=== PATIENT | male | born 1970 | race Caucasian/White ===

== ENCOUNTER 2017-11-02 10:13 | Inpatient (IN) ==
--- NOTE | 2017-11-02 10:40 | Anesthesia Evaluation PreOp ---
Date of Encounter: 11/02/17 Time of Encounter: 10:38 - Past History Planned Operation: multiple hind/midfoot joint fusions right Cardiac History: HTN Pulmonary History: Asthma, NEHEMIAH Dx (uses CPAP) Other Medical History: Renal (mild renal insufficiency), Diabetes Type II, GERD , Other (morbid obesity) Anesthesia History: No Prior Anesthetic Complications, Past Anesthesia (EOMI) Alcohol Use: none Drug use: none Medications and Allergies Cetirizine HCl [24Hour Allergy] 10 mg PO DAILY PRN 01/19/17 [History] Insulin Glargine [Lantus] 45 unit SQ BID 01/19/17 [History] Lisinopril/Hydrochlorothiazide [Zestoretic 20-25 mg Tablet] 2 tab PO DAILY 01/19 [History] Meloxicam [Mobic] 15 mg PO DAILY 01/19/17 [History] Pantoprazole Sodium [Protonix] 40 mg PO DAILY 01/19/17 [History] Tramadol HCl [Ultram] 50 mg PO QID PRN 01/19/17 [History] ARIPiprazole [Abilify] 10 mg PO DAILY 07/27/17 [History] Buspirone HCl [Buspar] 30 mg PO BID 07/27/17 [History] Gabapentin [Neurontin] 400 mg PO TID 07/27/17 [History] Glimepiride [Amaryl] 4 mg PO DAILY 07/27/17 [History] PARoxetine HCl [Paroxetine HCl] 40 mg PO DAILY 07/27/17 [History] 3 Allergy/AdvReac Type Severity Reaction Status Date / Time No Known Allergies Allergy Verified 10/23/17 11:55 - Meds/Allergy Pre-op Review Medications Reviewed: Yes Allergies Reviewed: Yes Beta Blockers on Current Med List: No Anesthesia Results - Labs Laboratory Tests 07/20/17 10/23/17 10/23/17 12:28 12:00 12:00 Hgb 14.8 Hct 45.4 Sodium 136 Potassium 4.4 BUN 31 H Creatinine 1.42 H - Imaging EKG: report reviewed (SINUS RHYTHM LOW QRS VOLTAGE IN PRECORDIAL LEADS POSSIBLE ANTERIOR MYOCARDIAL INFARCTION, OF INDETERMINATE AGE 3-17) Anesthesia Exam Weight: 184kg, BMI54 NPO (# of Hours): 8 - HEENT Pupil (Motor): EOMI Mallampati: III Teeth: Missing, Poor dentition Oral Opening: Greater than 3 - SWIMMING TEACHER LOC: Oriented SWIMMING TEACHER Motor: Normal RUE, Normal LUE, Normal RLE, Normal LLE, Normal Face SWIMMING TEACHER Sensory: Normal: RUE, LUE, RLE, LLE, Face - Cardiac Rhythm: Regular Murmur: None - Pulmonary Breath Sounds: bilateral Clear Respiratory Effort: Symmetrical Anesthesia Assess/Plan ASA Score: 3 Modified Danny Scale for Level of Consciousness: Cooperative, oriented, and tranquil Anesthetic Plan: General Monitoring Plan: Standard Monitors Recovery Plan: PACU (agrees to GA and attempted block)
[2017-11-02] MEDS ORDERED: Ondansetron 4 MG/2 ML VIAL ONE (10:51)
[2017-11-02] MEDS ORDERED: Dexamethasone 4 MG/ML VIAL ONE ×2 (10:51→17:04)
[2017-11-02] MEDS ORDERED: Lidocaine -MPF 2% 2 ML VIAL ONE (10:51)
[2017-11-02] MEDS ORDERED: *HR* Propofol 200 MG/20 ML VIAL IVP ONE ×2 (10:52→12:46)
[2017-11-02] MEDS ORDERED: *HR* Midazolam HCl 2 MG/2 ML VIAL ONE ×2 (10:52→12:19)
[2017-11-02] MEDS ORDERED: *HR* FentaNYL (PF) 100 MCG/2 ML VIAL ONE ×2 (10:52→12:19)
[2017-11-02] MEDS ORDERED: Albuterol 2.5 MG/3 ML NEBULIZER ONE (11:28)
[2017-11-02] MEDS ORDERED: Albuterol 2.5 MG/3 ML NEBULIZER IH ONE (11:31)
[2017-11-02] MEDS ORDERED: Ringers Solution, Lactated 1,000 ML IVC SCH (11:45)
--- NOTE | 2017-11-02 12:08 | History & Physical Report ---
Date of Encounter: 11/02/17 Time of Encounter: 11:55 24 Hour HP Update - Instructions Instructions: If the History and Physical is less than 30 days old and was completed prior to A.M. admission and or procedure and has NOT been updated on calendar day of procedure please complete this update prior to performing procedure. - Update Patient reports changes in Medical Condition: No Changes in examination, assessment, or condition: No Changes in Medication: No Preop tests/diagnostics Reviewed: Yes Surgery Remains Indicated: Yes Consent for Planned Operative Procedure(s) Verified: Yes - Attending Attestation proceed
[2017-11-02] MEDS ORDERED: Lidocaine/EPI 1:100k 1% 20 ML VIAL ONE (12:15)
[2017-11-02] MEDS ORDERED: Bupivacaine/Clonidine Syringe 1 EACH SYRINGE ONE (12:18)
[2017-11-02] MEDS ORDERED: ROPIVACAINE HCL/PF 0.5% 30 ML VIAL ONE (12:18)
[2017-11-02] MEDS ORDERED: *HR* Succinylcholine 200 MG/10 ML VIAL IVP ONE (12:24)
[2017-11-02] MEDS ORDERED: *HR* Rocuronium Bromide 50 MG/5 ML VIAL ONE ×2 (12:24→12:53)
[2017-11-02] MEDS ORDERED: Ondansetron 4 MG/2 ML VIAL IVP ONE (13:17)
[2017-11-02] MEDS ORDERED: *HR* Labetalol 20 MG/4 ML SYRINGE IVP PRN (13:17)
[2017-11-02] MEDS ORDERED: *HR* HYDROmorphone (PF) 1 MG/ML SYRINGE IVP PRN ×2 (13:17→15:00)
--- NOTE | 2017-11-02 13:21 | Anesthesia Procedures ---
Date of Encounter: 11/02/17 Time of Encounter: 12:21 Procedures: Anesthesia - Nerve Block Procedure Date: 11/02/17 Surgical Procedure: right ankle fusion Checklist: Correct Patient Identifier, Correct procedure, History checked Correct side: Right Blood Thinner: No Monitor Applied: Pulse Oximetry Supplemental Oxygen via Nasal Cannula (L/min): 2 Sedation: Versed (mg): 2 Sedation: Fentanyl (mcg): 100 Indication: Post Op Analgesia Block Type: Popliteal, Other (saphenous) Catheter placed: No Sterile Technique: Yes Ultrasound used: Yes Anatomy identified: Yes Visual spread of Local: Yes Neuro Stimulation: No Blood on Needle Aspiration: No Smooth Injection of Local: Yes Pain with Injection of Local: No Prep: Chlorhexadine Needle: 21 x 100 mm Stimuplex Local: Ropivacaine (60ml of 0.5% rop plain. ), Other (10ml from block stick, and 15ml from Ropivacaine for Saphenous, 45 ml of Rop plain used for popiteal block) Volume (cc): 70 Number of Attempts: 1 Complications: None/effective block Vitals: vss, block per request of surgeon
[2017-11-02] MEDS ORDERED: EPHEDrine 50 MG/ML VIAL ONE (13:22)
[2017-11-02] MEDS ORDERED: *HR* HYDROmorphone 2 MG/ML SYRINGE ONE (14:53)
[2017-11-02] MEDS ORDERED: Neostigmine Methylsulfate 3 MG/3 ML SYRINGE ONE (16:56)
[2017-11-02] MEDS ORDERED: *HR* OxyCODONE Immed Rel 5 MG TABLET PO PRN (17:19)
[2017-11-02] MEDS ORDERED: Naloxone 0.4 MG/ML INJ IVP PRN ×3 (17:19→20:15)
--- NOTE | 2017-11-02 18:21 | Anesthesia Evaluation Post Op ---
Date of Encounter: 11/02/17 Time of Encounter: 18:17 - Vital Signs Vital Signs: vss - Lungs Lungs: Clear Ascult./Percussion - Airway Airway: Non-obstructed - Cardiovascular Baseline Rhythm - Mental Status Mental Status: Alert & Oriented, Answers Appropriately - Pain Pain Scale used: Ryan-High (Faces) (0) - Nausea Vomiting Nausea Vomiting: Not Present - Hydration Hydration: Ice chips - Discharge PostOp Status: Transfer Patient to floor
[2017-11-02] MEDS ORDERED: Loratadine 10 MG TABLET PO PRN (19:11)
--- NOTE | 2017-11-02 19:58 | Operative Note ---
Date of procedure: 11/02/17 Pre-op diagnosis: right foot charcot with subtalar joint dislocation Post-op diagnosis: same Procedure: Right ankle removal of hardware Right ankle and subtalar joint arthrodesis calcaneocuboid joint arthrodesis bone graft major Implants: [employer] TTC locking plate with 5.5 and 4.5 locking screws Extremity Medical 4.5 and 6.5 headless cannulated screws Arthrex arthrocell bone graft Complications: none Anesthesia: GETA Local Anesthetics: 1% Lidocaine HCL with Epinephrine 1:200,000 SubQ (cc) Surgeon: Russell Mercer Estimated blood loss (cc): 300 Specimen: none Condition: stable Disposition: PACU Procedure in Detail: Indications: 47-year-old male with right foot Charcot collapse, deformity and dislocation of the subtalar joint and fragmented medial calcaneus and calcaneal cuboid joints. Cystic changes present in bone on CT scan. Patient electing to undergo surgical reconstruction after having the nature of the procedure, risks versus benefits and potential complications and consequences of the procedure explained at length including but not limited to infection, bleeding, swelling, numbness, tingling, nerve damage, wound healing problems, painful scar, delayed or non-healing of bone, heart attack, blood clot, , loss of limb, pneumonia , pulmonary embolism, nonfunctional extremity or loss of functional ability, deformity, break down of adjacent joints, arthritis, failure of hardware, need for removal of implants, need for further surgery. No guarantees were made as to the outcome and he understood that he could have persistent deformity and/or collapse and require future surgery or require amputation of his leg. His A1c was down to 7.5%. All questions were answered and the informed consent was signed. Patient taken from the preoperative holding area and into the operating room and placed on the operating room table in the supine position. The right lower extremity was prepped and draped in the usual sterile fashion and thigh tourniquet was inflated to 300 mmHg. Removal of hardware. Attention was directed to the lateral aspect of the patient's right ankle are #10 blade was used to make an incision over the fibula and blunt dissection was carried out down to the level of the hardware. There was some bony overgrowth on the hardware. The freer and Mercado elevator were used to remove the bony overgrowth exposing the plate and screws from previous ankle ORIF. The screws and ankle plate were removed. Bone graft major. With the screws and plate from the ankle removed a sagittal saw was then used to cut the fibula above the level of the ankle joint and removed the distal aspect of the fibula. The periosteum was removed and cortical surfaces removed. The bone graft harvested was soaked in saline on the back table for later use as bone graft. Right ankle and subtalar joint arthrodesis. The lateral ankle skin incision was lengthened distally using a #15 blade and subcutaneous and deep tissues dissected through sharp and blunt dissection. The peroneal tendons were identified and retracted. Traversing veins were divided and ligated using the Bovie or Vicryl suture and then retracted. In the lateral incision the dislocated remaining calcaneus bone was identified and was dislocated from the talus. There was no approximation of articulating surfaces. The medial aspect of the calcaneal bone was fragmented and not connected to the lateral portion of the calcaneus. Remaining cartilage of the calcaneus was debrided using bone curettes, rotary bur and the ronjeur. The same was done for the consolidated inferior portion of the talus. Attention was then directed proximally towards the ankle joint which was distracted using the intermittent distractor. The cartilage from both the talus and the tibia was removed using a bone curet, osteotome and rotary bur. A drill was used to fenestrate both the tibiotalar and talocalcaneal sites through subchondral bone. Arthrex ArthroSew bone graft was applied in the fusion sites and crevices. The talus was medialized and fixated temporarily to the tibia. A half pin was inserted into the calcaneus and the calcaneus was distracted and attempted to be moved medially under the talus. The medial fragmented bone preventing relocation was removed using a ronjeur. The posterior aspect of the calcaneus was approximated under the talus as much as possible. The guide wire for an intramedullary nail was thrown through the calcaneus and into the talus and tibia. C-arm was utilized to confirm position and alignment of the guidewire and it was felt that due to the remaining bone left of the calcaneus and under the talus, that an intramedullary nail may fracture through the lateral cortices of the talus and not stabilize the calcaneus to the hindfoot and ankle. Therefore, the decision was made to use a lateral tibiotalocalcalcaneal ham[employer] plate with 4.5 and 5.5 locking and non-locking screws and 6.5mm extremity medical screw to stabilize the tibiotalocalcaneal sites. The talus was temporarily fixated to the tibia and talus to the calcaneus while holding the ankle in a neutral position at the ankle joint and the 2nd digit was in alignment with the tibial tuberosity. Bone graft harvested from the fibula was inserted into the subtalar fusion site. Hardware was employed using standard techinque. Calcaneocuboid joint arthrodesis. Attention was then directed to the calcaneocuboid joint which contained fragmented loose bone which was removed from the joint. Remaining cartilage of this joint area was removed with an osteotome. Next an incision was made over the fourth metatarsophalangeal joint exposing the fourth metatarsal head and using standard technique a 4.5 mm extremity medical cannulated beam was thrown through the fourth metatarsal traversing the midfoot and into the calcaneus across the calcaneocuboid joint. A second crossing 4.5 mm cannulated beam was thrown from the cuboid across the calcaneal cuboid fusion zone. No motion was detected with stress of the calcaneocuboid joint. The tourniquet had been dropped during the procedure and adequate hemostasis was present at the conclusion of these procedures. The surgical incision sites were flushed with sterile saline. A 0-Vicryl was used to close deep and subcutaneous tissues and annette were used to reapproximate the skin. Capillary refill time was intact to all digits of the right foot at the conclusion of the procedures. Sterile bandge and posterior splint applied. Patient admitted prior to procedure and will return to the floor for monitoring and pain control.
--- NOTE | 2017-11-02 20:04 | Internal Med History&Physical ---
Date of Encounter: 11/02/17 Time of Encounter: 20:03 Assessment and Plan (1) Charcot foot due to diabetes mellitus Current visit: Yes Status: Acute S/p Right ankle and subtalar joint arthrodesis, calcaneocuboid joint arthrodesis , bone graft major ADA diet Pain management per Dr. Mercer orders. Plan for L foot pending future evaluation. (2) [facility] (current) use of anticoagulants Current visit: Yes Status: Acute Has been on Xarelto for over a year after provoked RUE clot due to picc line. Hgb A1c 7.5%, though may have increased risk of hypercoagulability due to longstanding diabetes. Will continue intermittent pneumatic compression for now. (3) HTN (hypertension) Current visit: Yes Status: Acute Continue Lisinopril+HCTZ Qualifiers: Hypertension type: unspecified Qualified Code(s): I10 - Essential (primary ) hypertension (4) DM2 (diabetes mellitus, type 2) Current visit: Yes Status: Acute Qualifiers: Diabetes mellitus complication detail: with unspecified neuropathy Diabetes mellitus residential insulin use: with petroleum terminal plant operator use Qualified Code(s) : E11.40 - Type 2 diabetes mellitus with diabetic neuropathy, unspecified; Z79.4 - petroleum terminal plant operator (current) use of insulin; Z79.4 - penitentiary (current) use of insulin; Z79.4 - penitentiary (current) use of insulin; Z79.4 - petroleum terminal plant operator (current ) use of insulin (5) NEHEMIAH (obstructive sleep apnea) Current visit: Yes Status: Acute Patient saturating well with O2 Mask Has home CPAP with 18/11 settings. Will use at night. Internal Medicine - H&P: HPI Admitted From: Home Plans for Post Hospital Care: Transfer Senior Living Facility History of present illness: Mr. Bowen is a 47 year old male with PMH DM2, Charcot foot bilaterally, NEHEMIAH, HTN, on xarelto for provoked clot RUE, and January ortho procedure, who presents today for same day surgery with Dr. Mercer for R Charcot foot fusion of ankle and multiple hindfoot/midfoot joint reconfiguration with MAC anesthesia/ popliteal nerve block. Past Med Surg Social Fam HX - Past Medical History Medical history: asthma, diabetes, hypertension, other Psychiatric history: anxiety, depression - Past Surgical History Surgical History: knee replacement, orthopedic, other, other - Social History Smoking Status: Current some day smoker Smokeless Tobacco Status: No Alcohol use: none Drug use: none Internal Medicine - H&P: Meds Cetirizine HCl [24Hour Allergy] 10 mg PO DAILY PRN 01/19/17 [History] Insulin Glargine [Lantus] 45 unit SQ BID 01/19/17 [History] Lisinopril/Hydrochlorothiazide [Zestoretic 20-25 mg Tablet] 2 tab PO DAILY 01/19 [History] Meloxicam [Mobic] 15 mg PO DAILY 01/19/17 [History] Pantoprazole Sodium [Protonix] 40 mg PO DAILY 01/19/17 [History] Tramadol HCl [Ultram] 50 mg PO QID PRN 01/19/17 [History] ARIPiprazole [Abilify] 10 mg PO DAILY 07/27/17 [History] Buspirone HCl [Buspar] 60 mg PO BID 07/27/17 [History] Gabapentin [Neurontin] 400 mg PO TID 07/27/17 [History] Glimepiride [Amaryl] 4 mg PO DAILY 07/27/17 [History] PARoxetine HCl [Paroxetine HCl] 40 mg PO DAILY 07/27/17 [History] Fluocinonide [Fluocinonide] 1 appl TP AD 11/02/17 [History] Lidocaine OINT 1 - 2 gm TP AD 11/02/17 [History] 3 Allergy/AdvReac Type Severity Reaction Status Date / Time No Known Allergies Allergy Verified 11/02/17 10:48 All Systems PM: A 10-system review of systems was performed and is negative for pertinent findings except as documented above in the HPI. - Constitutional Vitals: Temp Pulse Resp BP Pulse Ox 99.1 F 106 20 106/58 96 11/02/17 18:54 11/02/17 18:54 11/02/17 18:54 11/02/17 18:54 11/02/17 18:54 Internal Med - H&P Results - Impressions ITS Impressions Ankle X-Ray 11/02/17 00:00 IMPRESSION: Intraprocedural fluoroscopic spot images as above. See separate procedure report for more information. D/ / Shahzad Conde MD / Shahzad Conde MD Interpreting Provider: Shahzad Conde MD Fluoroscopy 11/02/17 00:00 IMPRESSION: Intraprocedural fluoroscopic spot images as above. See separate procedure report for more information. D/ / Shahzad Conde MD / Shahzad Conde MD Interpreting Provider: Shahzad Conde MD - VTE Documentation of Mechanical Device: Intermittent pneumatic compression device
--- NOTE | 2017-11-02 20:23 | Internal Medicine Consult Note ---
Date of Encounter: 11/02/17 Time of Encounter: 20:18 - Assessment and Plan (1) Charcot foot due to diabetes mellitus Current Visit: Yes Status: Acute Assessment and plan: S/p Right ankle and subtalar joint arthrodesis, calcaneocuboid joint arthrodesis , bone graft major ADA diet Incentive spirometry q6. Pain management per Dr. Mercer orders. USP plan for L foot pending future evaluation. (2) [facility] (current) use of anticoagulants Current Visit: Yes Status: Acute Assessment and plan: Has been on Xarelto for over a year after provoked RUE clot due to picc line. Hgb A1c 7.5%, though may have increased risk of hypercoagulability due to longstanding diabetes. Will continue intermittent pneumatic compression for now. (3) HTN (hypertension) Current Visit: Yes Status: Acute Assessment and plan: Continue Lisinopril+HCTZ Qualifiers: Hypertension type: unspecified Qualified Code(s): I10 - Essential (primary ) hypertension (4) DM2 (diabetes mellitus, type 2) Current Visit: Yes Status: Acute Assessment and plan: ACHS, with SSI. Qualifiers: Diabetes mellitus complication detail: with unspecified neuropathy Diabetes mellitus nursing home insulin use: with termite treater helper use Qualified Code(s) : E11.40 - Type 2 diabetes mellitus with diabetic neuropathy, unspecified; Z79.4 - intermediate project manager (current) use of insulin; Z79.4 - intermediate project manager (current) use of insulin; Z79.4 - intermediate project manager (current) use of insulin; Z79.4 - intermediate project manager (current ) use of insulin (5) NEHEMIAH (obstructive sleep apnea) Current Visit: Yes Status: Acute Assessment and plan: Patient saturating well with O2 Mask Has home CPAP with 29/09 settings. Will use at night. Internal Medicine - CN: HPI - Data of Consult Patient: new to practice Consult date: 11/02/17 Requesting Physician: Russell Mercer DPM - Consult Narrative Reason for consult: S/p Right ankle and subtalar joint arthrodesis, calcaneocuboid joint arthro History of present illness: Mr. Bowen is a 47 year old male with PMH DM2 diagnosed 12 years ago currently on insulin, most recent A1c 7.5%, Charcot foot bilaterally, NEHEMIAH, HTN, on xarelto for provoked clot RUE, and January ortho procedure, who presents today for same day surgery S/p Right ankle and subtalar joint arthrodesis, calcaneocuboid joint arthrodesis, bone graft major performed by Dr. Mercer, in addition to MAC anesthesia/popliteal nerve block. Pt is accompanied by at bedside, no concerns or complaints, pain under control. Mildly elevated heart rate but no chest discomfort or shortness of breath. Past Med Surg Social Fam HX - Past Medical History Medical history: asthma, diabetes, hypertension, other Psychiatric history: anxiety, depression - Past Surgical History Surgical History: knee replacement, orthopedic, other, other - Social History Smoking Status: Current some day smoker Smokeless Tobacco Status: No Alcohol use: none Drug use: none Internal Medicine - CN: Meds Cetirizine HCl [24Hour Allergy] 10 mg PO DAILY PRN 01/19/17 [History] Insulin Glargine [Lantus] 45 unit SQ BID 01/19/17 [History] Lisinopril/Hydrochlorothiazide [Zestoretic 20-25 mg Tablet] 2 tab PO DAILY 01/19 [History] Meloxicam [Mobic] 15 mg PO DAILY 01/19/17 [History] Pantoprazole Sodium [Protonix] 40 mg PO DAILY 01/19/17 [History] Tramadol HCl [Ultram] 50 mg PO QID PRN 01/19/17 [History] ARIPiprazole [Abilify] 10 mg PO DAILY 07/27/17 [History] Buspirone HCl [Buspar] 60 mg PO BID 07/27/17 [History] Gabapentin [Neurontin] 400 mg PO TID 07/27/17 [History] Glimepiride [Amaryl] 4 mg PO DAILY 07/27/17 [History] PARoxetine HCl [Paroxetine HCl] 40 mg PO DAILY 07/27/17 [History] Fluocinonide [Fluocinonide] 1 appl TP AD 11/02/17 [History] Lidocaine OINT 1 - 2 gm TP AD 11/02/17 [History] 3 Allergy/AdvReac Type Severity Reaction Status Date / Time No Known Allergies Allergy Verified 11/02/17 10:48 Internal Medicine - CN: Exam - Constitutional Vitals: Temp Pulse Resp BP Pulse Ox 99.1 F 106 20 106/58 96 11/02/17 18:54 11/02/17 18:54 11/02/17 18:54 11/02/17 18:54 11/02/17 18:54 General appearance IM: Present: A&O X 3, pleasant, no acute distress - Head Head exam: Present: atraumatic - Eye Eye exam: Present: EOMI, normal appearance - Neck Neck exam general surgery: Present: full ROM. Absent: lymphadenopathy - Respiratory Respiratory exam: Present: CTAB. Absent: respiratory distress, tachypnea - Cardiovascular Cardiovascular exam IM: Present: +S1, +S2, tachycardia. Absent: +S3, +S4 - GI/Abdominal GI/Abdominal exam IM: Present: no peritoneal signs - Extremities Exam Additional comments: R foot surgical dressing intact. Internal Medicine - CN: Reslt - Impressions Impressions Ankle X-Ray 11/02/17 00:00 IMPRESSION: Intraprocedural fluoroscopic spot images as above. See separate procedure report for more information. D/ / Shahzad Conde MD / Shahzad Conde MD Interpreting Provider: Shahzad Conde MD Fluoroscopy 11/02/17 00:00 IMPRESSION: Intraprocedural fluoroscopic spot images as above. See separate procedure report for more information. D/ / Shahzad Conde MD / Shahzad Conde MD Interpreting Provider: Shahzad Conde MD Consult Discharge Plan - Plan Referrals: Cassie Martin [employer] [Primary Care Provider] -
[2017-11-02] MEDS ORDERED: Dextrose Gel 15 GM PO PRN ×2 (20:25)
[2017-11-02] MEDS ORDERED: D5% in Water 1,000 ML IVC PRN (20:25)
[2017-11-02] MEDS ORDERED: *HR* Dextrose 50 % in Water (Syg) 50 ML SYRINGE IVP PRN (20:25)
[2017-11-02] MEDS: Insulin LISPRO 300 UNITS/3 ML VIAL SQ SCH ×2 (21:37→22:09)
[2017-11-02] MEDS: FluocinoNIDE 0.05% CRM 15 GM TUBE TP SCH (21:51)
[2017-11-02] MEDS: *HR* OxyCODONE Immed Rel 5 MG TABLET PO PRN (21:54)
[2017-11-02] MEDS: Gabapentin 400 MG CAPSULE PO SCH (21:55)
[2017-11-02] MEDS ORDERED: *HR* Morphine 2 MG/ML SYRINGE IVP PRN (22:04)
[2017-11-02] MEDS ORDERED: *HR* Morphine 2 MG/ML SYRINGE IVP ONE (22:04)
[2017-11-02] MEDS: Insulin DETEMIR 100 UNIT/ML X5UNITS SQ SCH (22:10)
[2017-11-03] MEDS: CeFAZolin Premix DUPLEX 2,000 MG/50 ML BAG IVPB SCH ×3 (00:53→17:13)
[2017-11-03 01:36] LABS: Basophils % 0.1 %; Immature Granulocytes % 0.5 % (0-4); Lymphocytes # 0.5 K/mcL (0.6-4.6); Lymphocytes % 5.6 %; Mean Corpuscular HGB Conc 32.4 g/dL (31.6-35.5); Mean Corpuscular Volume 86.2 fL (83.0-100.0); Mean Platelet Volume 9.7 fL (9.4-12.4); Monocytes # 0.6 K/mcL (0.0-1.3); Monocytes % 5.8 %; Neutrophils # 8.6 K/mcL (1.6-8.9); Platelet Count 248 K/mcL (140-400); Red Blood Count 4.29 M/mcL (4.19-5.50); Red Cell Distribution Width 13.4 % (11.5-14.5)
[2017-11-03 01:53] LABS: Calcium 8.4 mg/dL (8.6-10.3); Potassium 4.9 mEq/L (3.5-5.1)
[2017-11-03] MEDS: *HR* OxyCODONE Immed Rel 5 MG TABLET PO PRN ×2 (05:36→11:31)
[2017-11-03] MEDS: *HR* Enoxaparin 40 MG/0.4 ML SYRINGE SQ SCH (05:36)
[2017-11-03] MEDS: ARIPiprazole 10 MG TABLET PO SCH (07:59)
[2017-11-03] MEDS: *HR* Glimepiride 4 MG TABLET PO SCH (07:59)
[2017-11-03] MEDS: Insulin LISPRO 300 UNITS/3 ML VIAL SQ SCH ×4 (07:59→20:49)
[2017-11-03] MEDS: Gabapentin 400 MG CAPSULE PO SCH ×3 (07:59→20:30)
[2017-11-03] MEDS: Insulin DETEMIR 100 UNIT/ML X5UNITS SQ SCH ×2 (08:01→20:48)
[2017-11-03] MEDS ORDERED: 0.9 % Sodium Chloride 1,000 ML IVC ONE (11:07)
--- NOTE | 2017-11-03 11:10 | Internal Med Progress Note ---
Date of Encounter: 11/03/17 Time of Encounter: 11:10 - Assessment and plan (1) YESENIA (acute kidney injury) Current Visit: Yes Status: Acute Assessment and plan: will bolus a liter. likely pre-renal given low BP. will start maintenance at 100 cc/hr and check labs in am. avoid nephrotoxins. (2) Charcot foot due to diabetes mellitus Current Visit: Yes Status: Acute Assessment and plan: s/p Right ankle and subtalar joint arthrodesis, calcaneocuboid joint arthrodesis , bone graft major. post op management including pain per primary (3) HTN (hypertension) Current Visit: Yes Status: Acute Assessment and plan: hold HCTZ/lisinopril for low BP and YESENIA. Unfortunately he received it already today Qualifiers: Hypertension type: unspecified Qualified Code(s): I10 - Essential (primary ) hypertension (4) DM2 (diabetes mellitus, type 2) Current Visit: Yes Status: Acute Assessment and plan: c/w levemir 45 units BID. c/w SSI. c/w accu-cheks Qualifiers: Diabetes mellitus complication detail: with unspecified neuropathy Diabetes mellitus [facility] insulin use: with termite control representative use Qualified Code(s) : E11.40 - Type 2 diabetes mellitus with diabetic neuropathy, unspecified; Z79.4 - petroleum terminal plant operator (current) use of insulin; Z79.4 - [facility] (current) use of insulin; Z79.4 - petroleum terminal plant operator (current) use of insulin; Z79.4 - petroleum terminal plant operator (current ) use of insulin (5) NEHEMIAH (obstructive sleep apnea) Current Visit: Yes Status: Acute Assessment and plan: cpap (6) DVT prophylaxis Current Visit: Yes Status: Acute Assessment and plan: lovenox - Constitutional Vitals: Temp Pulse Resp BP Pulse Ox 98.5 F 98 20 99/62 96 11/03/17 08:43 11/03/17 08:43 11/03/17 08:43 11/03/17 08:43 11/03/17 08:43 General appearance: Present: A&O X 3, pleasant, no acute distress Exam: GEN: NAD CVS: RRR. S1, S2, No m/r/g RESP: CTAB ABD: Soft, NT, ND, +BS EXT: No edema. 2+ DP. No rashes. right foot dressing with no drainage NEURO: Nonfocal Internal Medicine: Result - Labs CBC & Chem 7: 11/03/17 01:06 11/03/17 01:06 Labs: Short CBC 11/03/17 Range/Units 01:06 WBC 9.7 (4.3-11.1) K/mcL Hgb 12.0 L (12.9-16.9) g/dL Hct 37.0 L (37.5-50.1) % Plt Count 248 (140-400) K/mcL Neutrophils # 8.6 (1.6-8.9) K/mcL BMP 11/03/17 01:06 Sodium 133 L Potassium 4.9 Chloride 100 Carbon Dioxide 26 BUN 28 H Creatinine 2.11 H Glucose 370 H Calcium 8.4 L - Impressions Impressions Ankle X-Ray 11/02/17 00:00 IMPRESSION: Intraprocedural fluoroscopic spot images as above. See separate procedure report for more information. D/ / Shahzad Conde MD / Shahzad Conde MD Interpreting Provider: Shahzad Conde MD Fluoroscopy 11/02/17 00:00 IMPRESSION: Intraprocedural fluoroscopic spot images as above. See separate procedure report for more information. D/ / Shahzad Conde MD / Shahzad Conde MD Interpreting Provider: Shahzad Conde MD - VTE Documentation of Mechanical Device: Intermittent pneumatic compression device Consult Discharge Plan - Plan Referrals: Cassie Martin, CLIENT TECHNOLOGIES ANALYST [Primary Care Provider] -
--- NOTE | 2017-11-03 11:31 | Podiatry Progress Note ---
Date of Encounter: 11/03/17 Time of Encounter: 10:10 - Assessment and Plan (1) Charcot foot due to diabetes mellitus Current Visit: Yes Status: Acute non-weight bearing right foot. pain controlled at this time. no active strikethough and no new strikethrough since reinforcement of the bandage yesterday. medical management per hospitalist. held meloxicam. awaiting ECF placement, given body habitus and need for non-weight bearing he is high risk for falls. Subjective Interval history: s/p right foot charcot reconstruction. denies f/c/n/v/sob/cp. sitting up out of bed in chair. pain appears controlled. Objective - Vital Signs Vital Signs: Vital Signs Temp Pulse Resp BP Pulse Ox 11/03/17 08:43 98.5 F 98 20 99/62 96 11/03/17 05:29 98.8 F 104 16 105/69 98 11/03/17 00:15 98.7 F 108 12 100/52 92 11/02/17 20:30 98.9 F 111 18 97/58 96 11/02/17 18:54 99.1 F 106 20 106/58 96 11/02/17 18:23 98.2 F 105 20 115/70 93 11/02/17 17:58 97.1 F L 105 20 104/57 93 11/02/17 17:48 101 20 110/60 94 11/02/17 17:38 100 16 109/61 97 11/02/17 17:28 98.2 F 91 16 105/53 95 11/02/17 12:24 97 16 96 Intake and Output 11/02/17 11/03/17 11/03/17 23:59 07:59 15:59 Intake Total 50 / 50 240 / 240 Output Total 300 / 300 400 / 400 Balance -300 / -300 -350 / -350 240 / 240 Intake: IV Fluids 50 / 50 Ancef Premix DUPLEX 2,000 mg In 50 / 50 50 ml @ 100 mls/hr IVPB Q8HR [facility] Rx#:[id number] Oral 240 / 240 Output: Estimated Blood Loss 300 / 300 Catheter 400 / 400 Other: Meal Breakfast Percent of Meal Consumed 100% Blood Glucose* 365 227 - Exam Exam: obese male in no acute distress Vasc: CFT < 3sec x 5 digits right foot. right foot toes are warm to touch. Derm: no active strikethrough and no strikethrough on outermost bandage. Musc: can flex and extend digits of the right foot. no calf pain with squeeze. Neuro: sensation intact to light touch. - Lab Result Diagrams: 11/03/17 01:06 11/03/17 01:06 Labs: Abnormal lab results Hgb 12.0 g/dL (12.9-16.9) L 11/03/17 01:06 Hct 37.0 % (37.5-50.1) L 11/03/17 01:06 Lymphocytes # 0.5 K/mcL (0.6-4.6) L 11/03/17 01:06 Sodium 133 mEq/L (136-145) L 11/03/17 01:06 BUN 28 mg/dL (6-20) H 11/03/17 01:06 Creatinine 2.11 mg/dL (0.70-1.30) H 11/03/17 01:06 Est GFR ( Amer) 41 (> 60) L 11/03/17 01:06 Est GFR (Non-Af Amer) 34 (> 60) L 11/03/17 01:06 Glucose 370 mg/dL (70-105) H 11/03/17 01:06 POC Glucose 227 (58-89) H 11/03/17 07:24 Calcium 8.4 mg/dL (8.6-10.3) L 11/03/17 01:06 - VTE Documentation of Mechanical Device: Intermittent pneumatic compression device Consult Discharge Plan - Plan Referrals: Cassie Martin, ENGLISH PROFESSOR [Primary Care Provider] -
[2017-11-03] MEDS: 0.9 % Sodium Chloride 1,000 ML IVC SCH (16:10)
[2017-11-03] MEDS ORDERED: CeFAZolin Premix DUPLEX 2,000 MG/50 ML BAG IVPB SCH (18:00)
[2017-11-03] MEDS: FluocinoNIDE 0.05% CRM 15 GM TUBE TP SCH (20:30)
[2017-11-03] MEDS: traMADol 50 MG TABLET PO PRN (20:49)
[2017-11-04 01:26] LABS: Basophils % 0.3 %; Eosinophils # 0.1 K/mcL (0.0-0.6); Eosinophils % 1.1 %; Hematocrit 27.7 % (37.5-50.1); Immature Granulocytes % 0.1 % (0-4); Lymphocytes # 1.8 K/mcL (0.6-4.6); Lymphocytes % 24.2 %; Mean Corpuscular HGB Conc 32.5 g/dL (31.6-35.5); Mean Corpuscular Hemoglobin 28.3 pg (28.0-33.3); Mean Corpuscular Volume 87.1 fL (83.0-100.0); Mean Platelet Volume 9.5 fL (9.4-12.4); Monocytes # 0.7 K/mcL (0.0-1.3); Monocytes % 9.9 %; Neutrophils # 4.7 K/mcL (1.6-8.9); Platelet Count 174 K/mcL (140-400); Red Blood Count 3.18 M/mcL (4.19-5.50); Red Cell Distribution Width 13.5 % (11.5-14.5); Segmented Neutrophils % 64.4 %
[2017-11-04 01:44] LABS: Calcium 7.7 mg/dL (8.6-10.3); Potassium 4.4 mEq/L (3.5-5.1)
--- NOTE | 2017-11-04 10:13 | Internal Med Progress Note ---
Date of Encounter: 11/04/17 Time of Encounter: 08:00 - Assessment and plan (1) YESENIA (acute kidney injury) Current Visit: Yes Status: Acute Assessment and plan: His kidney numbers have worsened today. I did stop his hydrochlorothiazide and lisinopril yesterday and meloxicam has been stopped. I started him on IV fluids thinking that this could be due to hypotension. His blood pressure pressure continues to be on the lower side. We will continue with IV fluids. I have asked Dr. Matthews to see the patient. We will continue to avoid nephrotoxins. Check a UA. Check labs in the morning. Further recommendations will be per Dr. Matthews from nephrology. (2) Charcot foot due to diabetes mellitus Current Visit: Yes Status: Acute Assessment and plan: s/p Right ankle and subtalar joint arthrodesis, calcaneocuboid joint arthrodesis , bone graft major. post op management including pain per primary (3) HTN (hypertension) Current Visit: Yes Status: Acute Assessment and plan: hold HCTZ/lisinopril again for low BP and YESENIA. Qualifiers: Hypertension type: unspecified Qualified Code(s): I10 - Essential (primary ) hypertension (4) DM2 (diabetes mellitus, type 2) Current Visit: Yes Status: Acute Assessment and plan: Increase Levemir to 60 units from 45 units twice a day. His glucose is uncontrolled. I will check a hemoglobin A1c. c/w SSI. c/w accu-cheks Qualifiers: Diabetes mellitus complication detail: with unspecified neuropathy Diabetes mellitus care home insulin use: with care home use Qualified Code(s) : E11.40 - Type 2 diabetes mellitus with diabetic neuropathy, unspecified; Z79.4 - toolmaker (current) use of insulin; Z79.4 - toolmaker (current) use of insulin; Z79.4 - group home (current) use of insulin; Z79.4 - toolmaker (current ) use of insulin (5) NEHEMIAH (obstructive sleep apnea) Current Visit: Yes Status: Acute Assessment and plan: cpap (6) DVT prophylaxis Current Visit: Yes Status: Acute Assessment and plan: lovenox - Subjective Interval history: No acute events. This pain is well-controlled. His glucose has been in the 200s to 300s. Otherwise he has no complaints. He has been afebrile. - Constitutional Vitals: Temp Pulse Resp BP Pulse Ox 98.3 F 60 18 97/63 97 11/04/17 00:04 11/04/17 00:04 11/04/17 00:04 11/04/17 00:04 11/04/17 00:04 General appearance: Present: pleasant, no acute distress Exam: GEN: NAD CVS: RRR. S1, S2, No m/r/g RESP: CTAB ABD: Soft, NT, ND, +BS EXT: No edema. 2+ DP. No rashes. right foot dressing with no drainage NEURO: Nonfocal Internal Medicine: Result - Labs CBC & Chem 7: 11/04/17 01:03 11/04/17 01:03 Labs: Short CBC 11/04/17 Range/Units 01:03 WBC 7.3 (4.3-11.1) K/mcL Hgb 9.0 L D (12.9-16.9) g/dL Hct 27.7 L (37.5-50.1) % Plt Count 174 (140-400) K/mcL Neutrophils # 4.7 (1.6-8.9) K/mcL BMP 11/04/17 01:03 Sodium 137 Potassium 4.4 Chloride 105 Carbon Dioxide 26 BUN 43 H Creatinine 3.20 H Glucose 253 H Calcium 7.7 L - VTE Documentation of Mechanical Device: Intermittent pneumatic compression device Consult Discharge Plan - Plan Referrals: Cassie Martin, SEAFOOD AND SERVICE MEAT MANAGER [Primary Care Provider] -
[2017-11-04 10:46] LABS: Hemoglobin A1C 8.2 %
[2017-11-04] MEDS: *HR* Enoxaparin 40 MG/0.4 ML SYRINGE SQ SCH (10:52)
--- NOTE | 2017-11-04 10:52 | Podiatry Progress Note ---
Date of Encounter: 11/04/17 Time of Encounter: 09:45 - Assessment and Plan (1) Charcot foot due to diabetes mellitus Current Visit: Yes Status: Acute discussed surgical procedure and findings with patient. non-weight bearing right LE. pain controlled at this time. bandage was changed, there is no active bleeding or ooze from the surgical incision site. placed in sterile bandage and adequately padded posterior splint. medical management per hospitalist. awaiting ECF placement, given body habitus and need for non-weight bearing he is high risk for falls. Subjective Interval history: s/p right foot charcot surgery. denies f/c/n/v/sob/cp/blurry vision. says he did void. says not much pain in the right foot/ankle. Objective - Vital Signs Vital Signs: Vital Signs Temp Pulse Resp BP Pulse Ox 11/04/17 00:04 98.3 F 60 18 97/63 97 11/03/17 20:48 147/65 11/03/17 20:46 98.7 F 103 18 97/57 97 11/03/17 16:12 98.9 F 109 18 90/58 91 11/03/17 12:00 98.2 F 101 18 90/60 93 Intake and Output 11/03/17 11/04/17 11/04/17 23:59 07:59 15:59 Intake Total 640 / 640 100 / 100 Output Total 200 / 200 Balance 440 / 440 100 / 100 Intake: Oral 640 / 640 100 / 100 Output: Catheter 200 / 200 Other: Meal Dinner Percent of Meal Consumed 100% Weight 184.612 kg Blood Glucose* 171 Patient Weight 11/04/17 23:59 Weight 184.612 kg - Exam Exam: obese male in no acute distress right foot/ankle warm to touch. dressing removed. bandages have dry blood on them. there is no bleeding from the surgical incisions. annette and sutures are intact. no fluctuance or evidence of hematoma formation. no erythema. mild edema. can flex and extend digits of the right foot. absent sensation to touch consistent with neuropathy. - Lab Result Diagrams: 11/04/17 01:03 11/04/17 01:03 Labs: Abnormal lab results RBC 3.18 M/mcL (4.19-5.50) L 11/04/17 01:03 Hgb 9.0 g/dL (12.9-16.9) L D 11/04/17 01:03 Hct 27.7 % (37.5-50.1) L 11/04/17 01:03 BUN 43 mg/dL (6-20) H 11/04/17 01:03 Creatinine 3.20 mg/dL (0.70-1.30) H 11/04/17 01:03 Est GFR ( Amer) 25 (> 60) L 11/04/17 01:03 Est GFR (Non-Af Amer) 21 (> 60) L 11/04/17 01:03 Glucose 253 mg/dL (70-105) H 11/04/17 01:03 POC Glucose 112 (58-89) H 11/04/17 08:00 Calculated Osmolality 303 (280-300) H 11/04/17 01:03 Calcium 7.7 mg/dL (8.6-10.3) L 11/04/17 01:03 - VTE Documentation of Mechanical Device: Intermittent pneumatic compression device Consult Discharge Plan - Plan Referrals: Cassie Martin, RIPSAW MATCHER [Primary Care Provider] -
[2017-11-04] MEDS: Insulin LISPRO 300 UNITS/3 ML VIAL SQ SCH ×4 (11:00→20:22)
[2017-11-04] MEDS: Gabapentin 400 MG CAPSULE PO SCH ×3 (11:03→20:21)
[2017-11-04] MEDS: 0.9 % Sodium Chloride 1,000 ML IVC SCH ×2 (11:04→23:53)
[2017-11-04] MEDS: *HR* Glimepiride 4 MG TABLET PO SCH (11:04)
[2017-11-04] MEDS: ARIPiprazole 10 MG TABLET PO SCH (11:04)
[2017-11-04] MEDS: *HR* OxyCODONE Immed Rel 5 MG TABLET PO PRN (11:11)
--- NOTE | 2017-11-04 11:32 | Nephrology Consult Note ---
Date of Encounter: 11/04/17 Time of Encounter: 11:16 Assessment and Plan (1) YESENIA (acute kidney injury) Current Visit: Yes Status: Acute Patient with multifactorial YESENIA on CKD Stage 3. YESENIA secondary to hypotension with ongoing SOHAIL-I and NSAID use. Patient with nonoliguric ATN. Agree with discontinuing Meloxicam and holding lisinopril/hctz. Agree with hydration. Avoid nephrotoxins. Adjust medications for renal function. Work-up is ordered. CKD Stage 3 started July 2017 Likely secondary to chronic NSAID use with long standing hypertension and diabetes contributing. Follow up with me in clinic 6-8 weeks after discharge with bmp 1-2 weeks prior to visit. (2) Charcot foot due to diabetes mellitus Current Visit: Yes Status: Acute Per primary team. S/p surgery. (3) DM2 (diabetes mellitus, type 2) Current Visit: Yes Status: Acute Goal Hgb A1C is less than 7.0. Per primary team and hospitalist. Consider referral to diabetes education. Qualifiers: Diabetes mellitus complication detail: with unspecified neuropathy Diabetes mellitus usp insulin use: with usp use Qualified Code(s) : E11.40 - Type 2 diabetes mellitus with diabetic neuropathy, unspecified; Z79.4 - meterman (current) use of insulin; Z79.4 - meterman (current) use of insulin; Z79.4 - meterman (current) use of insulin; Z79.4 - snf (current ) use of insulin (4) HTN (hypertension) Current Visit: Yes Status: Acute Goal blood pressure less than 130/80. Holding nephrotoxic medications until renal function stabilizes. Qualifiers: Hypertension type: unspecified Qualified Code(s): I10 - Essential (primary ) hypertension (5) Anemia Current Visit: Yes Status: Acute Work-up ordered. Monitor for bleeding. Qualifiers: Qualified Code(s): D64.9 - Anemia, unspecified (6) Morbid obesity with BMI of 50.0-59.9, adult Current Visit: Yes Status: Acute Patient would benefit from weight loss. Outpatient management. History of Present Illness - Reason for Consult Consult date: 11/04/17 Acute Kidney Injury, Chronic Kidney Disease - Chief Complaint YESENIA/CKD - History of Present Illness Mr. Bowen is a 47 yo man with a history of diabetes and hypertension who presented for surgical intervention of his Charcot joint. Patient has a history of nephrolithiasis x2 with the last episode being 10 years ago. He underwent surgery with postoperative course complicated by YESENIA. He was seen initially by hospitalist in consultation who subsequently consulted [facility] for evaluation of his YESENIA. At the time of my evaluation the patient reports his pain is controlled. He denies nausea, vomiting or diarrhea. His appetite is stable. He denies rashes or joint inflammation. He has been taking meloxicam daily for about 10 years. He denies a family history of kidney disease. He denies a knowledge of CKD and does not have a mower sharpener. Past Med Surg Social Fam HX - Past Medical History Medical history: asthma, diabetes, hypertension, other Psychiatric history: anxiety, depression - Past Surgical History Surgical History: knee replacement, orthopedic, other, other - Social History Smoking Status: Current some day smoker Smokeless Tobacco Status: No Alcohol use: none Drug use: none Medications and Allergies Cetirizine HCl [24Hour Allergy] 10 mg PO DAILY PRN 01/19/17 [History] Insulin Glargine [Lantus] 45 unit SQ BID 01/19/17 [History] Lisinopril/Hydrochlorothiazide [Zestoretic 20-25 mg Tablet] 2 tab PO DAILY 01/19 [History] Meloxicam [Mobic] 15 mg PO DAILY 01/19/17 [History] Pantoprazole Sodium [Protonix] 40 mg PO DAILY 01/19/17 [History] Tramadol HCl [Ultram] 50 mg PO QID PRN 01/19/17 [History] ARIPiprazole [Abilify] 10 mg PO DAILY 07/27/17 [History] Buspirone HCl [Buspar] 60 mg PO BID 07/27/17 [History] Gabapentin [Neurontin] 400 mg PO TID 07/27/17 [History] Glimepiride [Amaryl] 4 mg PO DAILY 07/27/17 [History] PARoxetine HCl [Paroxetine HCl] 40 mg PO DAILY 07/27/17 [History] Fluocinonide [Fluocinonide] 1 appl TP AD 11/02/17 [History] Lidocaine OINT 1 - 2 gm TP AD 11/02/17 [History] 3 Allergy/AdvReac Type Severity Reaction Status Date / Time No Known Allergies Allergy Verified 11/02/17 10:48 Review of Systems All Systems: reviewed and no additional remarkable complaints except as stated ( as per hpi.) Exam - Vital Signs Vital signs: Initial Vital Signs Temp Pulse Resp BP Pulse Ox 98.3 F 86 18 138/86 95 11/02/17 10:52 11/02/17 10:52 11/02/17 10:52 11/02/17 10:52 11/02/17 10:52 Intake and Output 11/03/17 11/04/17 11/04/17 23:59 07:59 15:59 Intake Total 640 / 640 1100 / 1100 Output Total 200 / 200 Balance 440 / 440 1100 / 1100 Intake: IV Fluids 1000 / 1000 0.9 % Sodium Chloride 1,000 ML 1000 / 1000 @ 100 mls/hr IVC .Q10H [facility] Rx#: [id number] Oral 640 / 640 100 / 100 Output: Catheter 200 / 200 Other: Meal Dinner Percent of Meal Consumed 100% Weight 184.612 kg Blood Glucose* 171 Patient Weight 11/04/17 23:59 Weight 184.612 kg - General Appearance General appearance: well-developed, well-nourished, obese EENT: ATNC Neck: supple Respiratory: clear Cardiology: no edema (in his left leg. His right leg surgical dressing is in place. ) Gastrointestinal: normoactive bowel sounds, no tenderness, obese Integumentary: warm and dry Neurologic: alert and oriented x3 Musculoskeletal: no cyanosis Psychiatric: mood/affect appropriate Results - Lab Results 11/04/17 01:03 11/04/17 01:03 Most recent lab results Calcium 7.7 mg/dL (8.6-10.3) L 11/04/17 01:03 Consult Discharge Plan - Plan Referrals: Cassie Martin, GLOBAL IMPLEMENTATION MANAGER [Primary Care Provider] -
[2017-11-04 12:14] LABS: Bilirubin,Urine Negative (Negative); Blood,Urine Trace (Negative); Clarity,Urine Clear (Clear); Color,Urine Yellow (Yellow); Glucose,Urine (UA) Normal (Normal); Ketones,Urine Negative (Negative); Leukocyte Esterase,Urine Negative (Negative); Nitrite,Urine Negative (Negative); PH,Urine 5.5 pH Units (5.0-8.0); Protein,Urine Negative (Neg-Trace); Specific Gravity,Urine 1.022 (1.010-1.025); Urobilinogen,Urine Normal (Normal)
[2017-11-04 12:16] LABS: Bacteria,Urine None Seen per hpf (None-Few); Hyaline Casts,Urine None Seen per lpf (None-Few); Squamous Epithelial Cell,Urine None Seen per lpf (None-Few)
[2017-11-04 12:49] LABS: Protein/Creatinine Ratio,Urine 0.14 mg/mg (0.00-0.20)
[2017-11-04] MEDS: Insulin DETEMIR 100 UNIT/ML X5UNITS SQ SCH (20:26)
[2017-11-04] MEDS: FluocinoNIDE 0.05% CRM 15 GM TUBE TP SCH (20:35)
[2017-11-05 01:29] LABS: Basophils % 0.3 %; Eosinophils # 0.2 K/mcL (0.0-0.6); Eosinophils % 2.4 %; Hematocrit 29.1 % (37.5-50.1); Hemoglobin 9.4 g/dL (12.9-16.9); Immature Granulocytes % 1.1 % (0-4); Lymphocytes # 1.3 K/mcL (0.6-4.6); Lymphocytes % 20.2 %; Mean Corpuscular HGB Conc 32.3 g/dL (31.6-35.5); Mean Corpuscular Hemoglobin 28.1 pg (28.0-33.3); Mean Corpuscular Volume 87.1 fL (83.0-100.0); Mean Platelet Volume 9.7 fL (9.4-12.4); Monocytes # 0.6 K/mcL (0.0-1.3); Monocytes % 8.6 %; Neutrophils # 4.5 K/mcL (1.6-8.9); Nucleated Red Blood Cells 0.3 /100 WBC (0); Platelet Count 199 K/mcL (140-400); Red Blood Count 3.34 M/mcL (4.19-5.50); Red Cell Distribution Width 13.1 % (11.5-14.5); Segmented Neutrophils % 67.4 %
[2017-11-05 01:49] LABS: Calcium 8.1 mg/dL (8.6-10.3); Potassium 4.6 mEq/L (3.5-5.1)
[2017-11-05 01:55] LABS: Phosphorous 2.4 mg/dL (2.7-4.5); Uric Acid 11.1 mg/dL (2.3-7.6)
[2017-11-05 02:27] LABS: Folate 10.1 ng/mL (3.0-16.0)
[2017-11-05] MEDS: *HR* Enoxaparin 40 MG/0.4 ML SYRINGE SQ SCH (05:28)
[2017-11-05] MEDS: *HR* Glimepiride 4 MG TABLET PO SCH (08:46)
[2017-11-05] MEDS: Insulin DETEMIR 100 UNIT/ML X5UNITS SQ SCH ×2 (08:46→20:56)
[2017-11-05] MEDS: Gabapentin 400 MG CAPSULE PO SCH ×3 (08:46→20:02)
[2017-11-05] MEDS: *HR* OxyCODONE Immed Rel 5 MG TABLET PO PRN ×3 (08:46→20:56)
[2017-11-05] MEDS: ARIPiprazole 10 MG TABLET PO SCH (08:46)
[2017-11-05] MEDS: Insulin LISPRO 300 UNITS/3 ML VIAL SQ SCH ×4 (08:47→20:58)
--- NOTE | 2017-11-05 09:20 | Internal Med Progress Note ---
Date of Encounter: 11/05/17 Time of Encounter: 07:30 - Assessment and plan (1) Postoperative fever Current Visit: Yes Status: Acute Assessment and plan: Unclear source. His fever was low-grade. He has a little bit of cough. We will check a chest x-ray. Check urinalysis. Check blood cultures. (2) YESENIA (acute kidney injury) Current Visit: Yes Status: Acute Assessment and plan: His kidney numbers improved today. Continue to hold nephrotoxins. Nephrology is on board. Renal ultrasound with nothing acute. Continue with IV fluids. His blood pressure is better. Hydrochlorothiazide lisinopril and meloxicam are all on hold. Chronic kidney disease workup is pending. (3) Charcot foot due to diabetes mellitus Current Visit: Yes Status: Acute Assessment and plan: s/p Right ankle and subtalar joint arthrodesis, calcaneocuboid joint arthrodesis , bone graft major. post op management including pain per primary (4) HTN (hypertension) Current Visit: Yes Status: Acute Assessment and plan: hold HCTZ/lisinopril again due to YESENIA. Qualifiers: Hypertension type: unspecified Qualified Code(s): I10 - Essential (primary ) hypertension (5) DM2 (diabetes mellitus, type 2) Current Visit: Yes Status: Acute Assessment and plan: Continue with Levemir 60 units today. I did increase it yesterday from 45 twice a day. A1c is at 8.2. c/w SSI. c/w accu-cheks Qualifiers: Diabetes mellitus complication detail: with unspecified neuropathy Diabetes mellitus manager intermediate insulin use: with fpc use Qualified Code(s) : E11.40 - Type 2 diabetes mellitus with diabetic neuropathy, unspecified; Z79.4 - shelter (current) use of insulin; Z79.4 - manager intermediate (current) use of insulin; Z79.4 - shelter (current) use of insulin; Z79.4 - manager intermediate (current ) use of insulin (6) NEHEMIAH (obstructive sleep apnea) Current Visit: Yes Status: Acute Assessment and plan: cpap (7) DVT prophylaxis Current Visit: Yes Status: Acute Assessment and plan: lovenox - Subjective Interval history: Patient had a temperature 100.8 overnight. He says he has had chills at night. This pain is well-controlled. Glucose is better controlled although still elevated. His hemoglobin is at 9.4 and was 9.0 yesterday. Hemoglobin was 12.0 on 1223. Seen by nephrology yesterday. Hi - Constitutional Vitals: Temp Pulse Resp BP Pulse Ox 98.9 F 92 16 123/74 95 11/05/17 06:25 11/05/17 06:25 11/05/17 06:25 11/05/17 06:25 11/05/17 08:26 General appearance: Present: pleasant, no acute distress Exam: GEN: NAD CVS: RRR. S1, S2, No m/r/g RESP: CTAB ABD: Soft, NT, ND, +BS EXT: No edema. 2+ DP. No rashes. right foot dressing with no drainage NEURO: Nonfocal Internal Medicine: Result - Labs CBC & Chem 7: 11/05/17 01:15 11/05/17 01:15 Labs: Short CBC 11/05/17 Range/Units 01:15 WBC 6.6 (4.3-11.1) K/mcL Hgb 9.4 L (12.9-16.9) g/dL Hct 29.1 L (37.5-50.1) % Plt Count 199 (140-400) K/mcL Neutrophils # 4.5 (1.6-8.9) K/mcL BMP 11/05/17 01:15 Sodium 135 L Potassium 4.6 Chloride 106 Carbon Dioxide 24 BUN 39 H Creatinine 2.09 H Glucose 277 H Calcium 8.1 L Urine 11/04/17 Range/Units 11:55 Urine Color Yellow (Yellow) Urine Clarity Clear (Clear) Urine pH 5.5 (5.0-8.0) pH Units Ur Specific [place] 1.022 (1.010-1.025) Urine Protein Negative (Neg-Trace) mg/dL Urine Glucose (UA) Normal (Normal) mg/dL - Impressions Impressions Retroperitoneum Ultrasound 11/04/17 12:30 IMPRESSION: 1. Study limited by patient body habitus. The kidneys are grossly normal in sonographic appearance. 2. Normal sonographic appearance of the urinary bladder, with a [id number] postvoid residual. D/ / Gene Naylor MD / Gene Naylor MD Interpreting Provider: Gene Naylor MD Chest X-Ray 11/05/17 07:27 IMPRESSION: No acute cardiopulmonary disease. D/ / 11/05/2017 08:22:51 Kashif Anderson MD / hood Interpreting Provider: Kashif Anderson MD - VTE Documentation of Mechanical Device: Intermittent pneumatic compression device Consult Discharge Plan - Plan Referrals: Cassie Martin, EVENT MARKETING INTERN [Primary Care Provider] -
--- NOTE | 2017-11-05 09:27 | Nephrology Progress Note ---
Date of Encounter: 11/05/17 Time of Encounter: 09:19 - Assessment and Plan (1) YESENIA (acute kidney injury) Current Visit: Yes Status: Acute Patient with YESENIA on CKD that is improving with hydration and holding nephrotoxins. Will discontinue fluids and monitor. May be able to add back antihypertensive medications tomorrow. (2) Charcot foot due to diabetes mellitus Current Visit: Yes Status: Acute Per primary team. (3) DM2 (diabetes mellitus, type 2) Current Visit: Yes Status: Acute Per primary team. Qualifiers: Qualified Code(s): E11.40 - Type 2 diabetes mellitus with diabetic neuropathy , unspecified; Z79.4 - ad terminal makeup operator (current) use of insulin; Z79.4 - FDC ( current) use of insulin; Z79.4 - ad terminal makeup operator (current) use of insulin; Z79.4 - ad terminal makeup operator (current) use of insulin (4) HTN (hypertension) Current Visit: Yes Status: Acute If renal function improves Sunday add back home bp medications. Qualifiers: Qualified Code(s): I10 - Essential (primary) hypertension (5) Anemia Current Visit: Yes Status: Acute Iron deficiency - iv iron ordered. vitamin b12 deficiency - cyanacobalamin ordered. Qualifiers: Qualified Code(s): D64.9 - Anemia, unspecified (6) Morbid obesity with BMI of 50.0-59.9, adult Current Visit: Yes Status: Acute Patient needs weight loss. Subjective Principal diagnosis: YESENIA on CKD Interval history: Patient seen and evaluated. No new complaint. Pain is controlled. Objective - Vital Signs Vital signs: Vital Signs Temp Pulse Resp BP Pulse Ox 11/05/17 08:26 95 11/05/17 06:25 98.9 F 92 16 123/74 95 11/05/17 00:20 100.1 F H 97 18 119/66 93 11/04/17 20:08 100.4 F H 11/04/17 19:37 100.8 F H 93 18 131/71 96 11/04/17 15:26 98.7 F 88 18 113/64 11/04/17 11:39 98.5 F 83 20 105/67 96 Intake and Output 11/04/17 11/05/17 11/05/17 23:59 07:59 15:59 Intake Total 1360 / 1360 Output Total 850 / 850 1625 / 1625 Balance 510 / 510 -1625 / -1625 Intake: IV Fluids 1000 / 1000 0.9 % Sodium Chloride 1,000 ML 1000 / 1000 @ 100 mls/hr IVC .Q10H [facility] Rx#: [id number] Oral 360 / 360 Output: Urine 850 / 850 1625 / 1625 Other: Meal Dinner Percent of Meal Consumed 100% Blood Glucose* 205 178 - General Appearance General appearance: Present: well-developed, well-nourished, obese EENT: Present: ATNC Neck: Present: supple Cardiology: Present: regular rate Integumentary: Present: warm and dry Neurologic: Present: alert and oriented x3 Psychiatric: Present: mood/affect appropriate - Lab 11/05/17 01:15 11/05/17 01:15 Most recent lab results Calcium 8.1 mg/dL (8.6-10.3) L 11/05/17 01:15 Phosphorus 2.4 mg/dL (2.7-4.5) L 11/05/17 01:15 Urine Creatinine 159 mg/dL 11/04/17 11:55 Urine Total Protein 22 mg/dL 11/04/17 11:55 - VTE Documentation of Mechanical Device: Intermittent pneumatic compression device Consult Discharge Plan - Plan Referrals: Cassie Martin BORDEREAU CLERK [Primary Care Provider] -
[2017-11-05] MEDS: Iron Sucrose Complex 200 MG in 0.9 % Sodium Chloride 100 ML IVPB SCH (12:40)
[2017-11-05] MEDS: Cyanocobalamin (B-12) 1,000 MCG TABLET PO SCH (13:21)
[2017-11-05] MEDS: FluocinoNIDE 0.05% CRM 15 GM TUBE TP SCH (20:03)
[2017-11-06 05:33] LABS: Basophils % 0.4 %; Eosinophils # 0.2 K/mcL (0.0-0.6); Eosinophils % 3.3 %; Hematocrit 27.9 % (37.5-50.1); Hemoglobin 8.8 g/dL (12.9-16.9); Immature Granulocytes % 0.4 % (0-4); Lymphocytes # 1.5 K/mcL (0.6-4.6); Mean Corpuscular HGB Conc 31.5 g/dL (31.6-35.5); Mean Corpuscular Hemoglobin 27.7 pg (28.0-33.3); Mean Corpuscular Volume 87.7 fL (83.0-100.0); Mean Platelet Volume 9.9 fL (9.4-12.4); Monocytes # 0.5 K/mcL (0.0-1.3); Monocytes % 8.8 %; Neutrophils # 3.4 K/mcL (1.6-8.9); Platelet Count 199 K/mcL (140-400); Red Blood Count 3.18 M/mcL (4.19-5.50); Red Cell Distribution Width 12.9 % (11.5-14.5); Segmented Neutrophils % 60.1 %
[2017-11-06 05:46] LABS: BUN/Creatinine Ratio 19 (6-26); Blood Urea Nitrogen 28 mg/dL (6-20); Calcium 8.4 mg/dL (8.6-10.3); Carbon Dioxide 29 mEq/L (23-29); Chloride 107 mEq/L (98-107); Glucose 165 mg/dL (70-105); Osmolality,Calculated 297 (280-300); Potassium 4.3 mEq/L (3.5-5.1); Sodium 139 mEq/L (136-145); eGFR For African Americans > 60 (> 60); eGFR For Non-African Americans 52 (> 60)
[2017-11-06] MEDS: *HR* Enoxaparin 40 MG/0.4 ML SYRINGE SQ SCH (06:44)
[2017-11-06] MEDS: *HR* OxyCODONE Immed Rel 5 MG TABLET PO PRN ×2 (06:44→16:49)
[2017-11-06] MEDS: Insulin LISPRO 300 UNITS/3 ML VIAL SQ SCH ×4 (07:25→20:32)
--- NOTE | 2017-11-06 07:37 | Internal Med Progress Note ---
Date of Encounter: 11/06/17 Time of Encounter: 07:35 - Assessment and plan (1) Postoperative fever Current Visit: Yes Status: Acute Assessment and plan: Unclear source. He is afebrile now. I am not going to start any antibiotics as I do not have a source. We will continue to monitor. (2) YESENIA (acute kidney injury) Current Visit: Yes Status: Acute Assessment and plan: His kidney numbers continue to improve. ok to resume home meds. Nephrology is on board. Renal ultrasound with nothing acute. He is off IV fluids. He is encouraged to continue with oral intake. Hydrochlorothiazide and lisinopril and meloxicam were held. I am not opposed to him being discharged by the orthopedics group at this year he can be discharged. If he is discharged he should have a BMP checked sometime over the next couple days [facility] the [facility] facility[facility]habilitation facility. His lisinopril hydrochlorothiazide can be resumed. (3) Charcot foot due to diabetes mellitus Current Visit: Yes Status: Acute Assessment and plan: s/p Right ankle and subtalar joint arthrodesis, calcaneocuboid joint arthrodesis , bone graft major. post op management including pain per primary (4) HTN (hypertension) Current Visit: Yes Status: Acute Assessment and plan: resume HCTZ/lisinopril if blood pressure tolerates. Qualifiers: Hypertension type: unspecified Qualified Code(s): I10 - Essential (primary ) hypertension (5) DM2 (diabetes mellitus, type 2) Current Visit: Yes Status: Acute Assessment and plan: Glucose 137 morning. Continue with Levemir 60 units twice a day. I recommend continuing that at discharge. I did increase it 11/04 from 45 twice a day. A1c is at 8.2. c/w SSI. c/w accu-cheks Qualifiers: Diabetes mellitus complication detail: without coma Diabetes mellitus shelter insulin use: with shelter use Qualified Code(s): E11.00 - Type 2 diabetes mellitus with hyperosmolarity without nonketotic hyperglycemic- hyperosmolar coma (NKHHC); Z79.4 - nursing home (current) use of insulin; Z79.4 - joint terminal attack controller (current) use of insulin; Z79.4 - joint terminal attack controller (current) use of insulin; Z79.4 - nursing home (current) use of insulin (6) NEHEMIAH (obstructive sleep apnea) Current Visit: Yes Status: Acute Assessment and plan: cpap (7) DVT prophylaxis Current Visit: Yes Status: Acute Assessment and plan: lovenox - Subjective Interval history: Patient was seen and examined. He has been afebrile the last 24 hours. His workup with a low-grade temperature that he had the day before has been negative. He says he has no cough anymore. Pain is well controlled. He is up to a chair this morning. - Constitutional Vitals: Temp Pulse Resp BP Pulse Ox 97.7 F 72 20 121/72 95 11/06/17 06:30 11/06/17 06:30 11/06/17 06:30 11/06/17 06:30 11/06/17 06:30 General appearance: Present: pleasant, no acute distress Exam: GEN: NAD CVS: RRR. S1, S2, No m/r/g RESP: CTAB ABD: Soft, NT, ND, +BS EXT: No edema. 2+ DP. No rashes. right foot dressing with no drainage NEURO: Nonfocal Internal Medicine: Result - Labs CBC & Chem 7: 11/06/17 05:00 11/06/17 05:00 Labs: Short CBC 11/06/17 Range/Units 05:00 WBC 5.7 (4.3-11.1) K/mcL Hgb 8.8 L (12.9-16.9) g/dL Hct 27.9 L (37.5-50.1) % Plt Count 199 (140-400) K/mcL Neutrophils # 3.4 (1.6-8.9) K/mcL BMP 11/06/17 05:00 Sodium 139 Potassium 4.3 Chloride 107 Carbon Dioxide 29 BUN 28 H Creatinine 1.44 H Glucose 165 H Calcium 8.4 L - Impressions Impressions Chest X-Ray 11/05/17 07:27 IMPRESSION: No acute cardiopulmonary disease. D/ / 11/05/2017 08:22:51 Kashif Anderson MD / hood Interpreting Provider: Kashif Anderson MD - VTE Documentation of Mechanical Device: Intermittent pneumatic compression device Consult Discharge Plan - Plan Referrals: Cassie Martin, FOOD AND DRUG RESEARCH SCIENTIST [Primary Care Provider] -
[2017-11-06] MEDS: *HR* Glimepiride 4 MG TABLET PO SCH (08:04)
[2017-11-06] MEDS: ARIPiprazole 10 MG TABLET PO SCH (08:04)
[2017-11-06] MEDS: Cyanocobalamin (B-12) 1,000 MCG TABLET PO SCH (08:05)
[2017-11-06] MEDS: Gabapentin 400 MG CAPSULE PO SCH ×3 (08:05→20:32)
[2017-11-06] MEDS: Insulin DETEMIR 100 UNIT/ML X5UNITS SQ SCH ×2 (09:44→20:32)
[2017-11-06] MEDS: traMADol 50 MG TABLET PO PRN ×2 (09:44→20:32)
[2017-11-06] MEDS: Iron Sucrose Complex 200 MG in 0.9 % Sodium Chloride 100 ML IVPB SCH (09:44)
--- NOTE | 2017-11-06 11:21 | Nephrology Progress Note ---
Date of Encounter: 11/06/17 Time of Encounter: 11:19 - Assessment and Plan (1) YESENIA (acute kidney injury) Current Visit: Yes Status: Acute Kidney function greatly improved today-Scr 1.44 from 2.09, GFR 52 from 34 OK to resume home b/p meds if needed Nephrology signing off case-BMP in one week from discharge and f/u in office in 4-6 weeks (2) Anemia Current Visit: Yes Status: Acute Hgb 8.8 Venofer given Qualifiers: Anemia type: unspecified type Qualified Code(s): D64.9 - Anemia, unspecified (3) Charcot foot due to diabetes mellitus Current Visit: Yes Status: Acute per primary team Subjective Principal diagnosis: YESENIA on CKD Interval history: Patient seen and examined; sleeping with bipap on Objective - Vital Signs Vital signs: Vital Signs Temp Pulse Resp BP Pulse Ox 11/06/17 10:57 99.4 F 81 20 113/72 97 11/06/17 08:15 95 11/06/17 06:30 97.7 F 72 20 121/72 95 11/05/17 23:34 98.3 F 82 18 131/87 93 11/05/17 20:00 96 11/05/17 19:49 99.3 F 85 8 152/81 96 11/05/17 15:20 98.5 F 84 16 129/63 98 Intake and Output 11/05/17 11/06/17 11/06/17 23:59 07:59 15:59 Intake Total 410 / 410 360 / 360 Output Total 1000 / 1000 1150 / 1150 Balance -590 / -590 -1150 / -1150 360 / 360 Intake: IV Fluids 110 / 110 Venofer 200 MG In 0.9 % Sodium 110 / 110 Chloride 100 ML @ 200 mls/hr IVPB DAILY [facility] Rx#:[id number] Oral 300 / 300 360 / 360 Output: Urine 1000 / 1000 1150 / 1150 Other: Meal Breakfast Percent of Meal Consumed 100% Blood Glucose* 195 137 194 - General Appearance General appearance: Present: obese EENT: Present: ATNC Neck: Present: supple Cardiology: Present: regular rate, regular rhythm Gastrointestinal: Present: no guarding - Lab 11/06/17 05:00 11/06/17 05:00 Most recent lab results Calcium 8.4 mg/dL (8.6-10.3) L 11/06/17 05:00 Phosphorus 2.4 mg/dL (2.7-4.5) L 11/05/17 01:15 Urine Creatinine 159 mg/dL 11/04/17 11:55 Urine Total Protein 22 mg/dL 11/04/17 11:55 - VTE Documentation of Mechanical Device: Intermittent pneumatic compression device Consult Discharge Plan - Plan Referrals: Cassie Martin ACCOUNTS COLLECTOR [Primary Care Provider] -
--- NOTE | 2017-11-06 14:41 | Podiatry Progress Note ---
Date of Encounter: 11/06/17 Time of Encounter: 12:15 - Assessment and Plan (1) Charcot foot due to diabetes mellitus Current Visit: Yes Status: Acute c/w non-weight bearing right LE. pain controlled at this time. leave bandage clean, dry, and intact. no dressing changes necessary at this time. medical management per hospitalist. awaiting ECF placement, given body habitus and need for non-weight bearing he is high risk for falls. he will follow up with me 10- 14 days after discharge. Subjective Principal diagnosis: YESENIA on CKD Interval history: s/p right foot charcot surgery. denies f/c/n/v/sob/cp/blurry vision. pain in the right foot/ankle controlled. Objective - Vital Signs Vital Signs: Vital Signs Temp Pulse Resp BP Pulse Ox 11/06/17 14:17 98.4 F 82 20 153/69 96 11/06/17 10:57 99.4 F 81 20 113/72 97 11/06/17 08:15 95 11/06/17 06:30 97.7 F 72 20 121/72 95 11/05/17 23:34 98.3 F 82 18 131/87 93 11/05/17 20:00 96 11/05/17 19:49 99.3 F 85 8 152/81 96 11/05/17 15:20 98.5 F 84 16 129/63 98 Intake and Output 11/05/17 11/06/17 11/06/17 23:59 07:59 15:59 Intake Total 410 / 410 600 / 600 Output Total 1000 / 1000 1150 / 1150 550 / 550 Balance -590 / -590 -1150 / -1150 50 / 50 Intake: IV Fluids 110 / 110 Venofer 200 MG In 0.9 % Sodium 110 / 110 Chloride 100 ML @ 200 mls/hr IVPB DAILY [facility] Rx#:[id number] Oral 300 / 300 600 / 600 Output: Urine 1000 / 1000 1150 / 1150 550 / 550 Other: Meal Lunch Percent of Meal Consumed 100% Blood Glucose* 195 137 194 - Exam Exam: no strikethrough. CFT of digits warm to touch. can flex and extend digits of the right foot. no calf pain with squeeze. absent sensation consistent with neuropathy. - Lab Result Diagrams: 11/06/17 05:00 11/06/17 05:00 Labs: Abnormal lab results RBC 3.18 M/mcL (4.19-5.50) L 11/06/17 05:00 Hgb 8.8 g/dL (12.9-16.9) L 11/06/17 05:00 Hct 27.9 % (37.5-50.1) L 11/06/17 05:00 MCH 27.7 pg (28.0-33.3) L 11/06/17 05:00 MCHC 31.5 g/dL (31.6-35.5) L 11/06/17 05:00 Nucleated RBCs/100 WBC 0.3 /100 WBC (0) H 11/05/17 01:15 BUN 28 mg/dL (6-20) H 11/06/17 05:00 Creatinine 1.44 mg/dL (0.70-1.30) H 11/06/17 05:00 Est GFR (Non-Af Amer) 52 (> 60) L 11/06/17 05:00 Glucose 165 mg/dL (70-105) H 11/06/17 05:00 POC Glucose 194 (58-89) H 11/06/17 11:10 Hemoglobin A1c 8.2 % (-5.6) H 11/04/17 01:03 Uric Acid 11.1 mg/dL (2.3-7.6) H 11/05/17 01:15 Calcium 8.4 mg/dL (8.6-10.3) L 11/06/17 05:00 Phosphorus 2.4 mg/dL (2.7-4.5) L 11/05/17 01:15 Iron 16 mcg/dL (65-175) L 11/05/17 01:15 % Saturation 6 % (20-55) L 11/05/17 01:15 Transferrin 201 mg/dL (203-362) L 11/05/17 01:15 Vitamin B12 155 pg/mL (250-1100) L 11/05/17 01:15 25-OH Vitamin D Total 16 ng/mL (30-80) L 11/05/17 01:15 Urine Blood Trace (Negative) H 11/04/17 11:55 Urine Microscopic RBC 5-15 per hpf (0-3) H 11/04/17 11:55 Urine Microscopic WBC 3-5 per hpf (0-3) H 11/04/17 11:55 - VTE Documentation of Mechanical Device: Intermittent pneumatic compression device Consult Discharge Plan - Plan Referrals: Cassie Martin FRAME FEEDER [Primary Care Provider] -
[2017-11-06] MEDS: FluocinoNIDE 0.05% CRM 15 GM TUBE TP SCH (20:42)
[2017-11-07] MEDS: *HR* OxyCODONE Immed Rel 5 MG TABLET PO PRN (03:14)
[2017-11-07] MEDS: *HR* Enoxaparin 40 MG/0.4 ML SYRINGE SQ SCH (05:08)
[2017-11-07 06:05] LABS: Basophils % 0.4 %; Eosinophils # 0.2 K/mcL (0.0-0.6); Eosinophils % 4.4 %; Hematocrit 27.9 % (37.5-50.1); Hemoglobin 9.1 g/dL (12.9-16.9); Immature Granulocytes % 0.4 % (0-4); Lymphocytes # 1.4 K/mcL (0.6-4.6); Lymphocytes % 25.6 %; Mean Corpuscular HGB Conc 32.6 g/dL (31.6-35.5); Mean Corpuscular Hemoglobin 27.8 pg (28.0-33.3); Mean Corpuscular Volume 85.3 fL (83.0-100.0); Mean Platelet Volume 9.6 fL (9.4-12.4); Monocytes # 0.5 K/mcL (0.0-1.3); Monocytes % 8.7 %; Neutrophils # 3.3 K/mcL (1.6-8.9); Platelet Count 241 K/mcL (140-400); Red Blood Count 3.27 M/mcL (4.19-5.50); Red Cell Distribution Width 12.7 % (11.5-14.5); Segmented Neutrophils % 60.5 %
[2017-11-07 06:22] LABS: BUN/Creatinine Ratio 20 (6-26); Blood Urea Nitrogen 25 mg/dL (6-20); Calcium 8.8 mg/dL (8.6-10.3); Carbon Dioxide 30 mEq/L (23-29); Chloride 105 mEq/L (98-107); Glucose 120 mg/dL (70-105); Osmolality,Calculated 292 (280-300); Potassium 4.3 mEq/L (3.5-5.1); Sodium 138 mEq/L (136-145); eGFR For African Americans > 60 (> 60); eGFR For Non-African Americans 60 (> 60)
[2017-11-07] MEDS: *HR* Glimepiride 4 MG TABLET PO SCH (07:52)
[2017-11-07] MEDS: Gabapentin 400 MG CAPSULE PO SCH (07:52)
[2017-11-07] MEDS: Cyanocobalamin (B-12) 1,000 MCG TABLET PO SCH (07:52)
[2017-11-07] MEDS: ARIPiprazole 10 MG TABLET PO SCH (07:52)
[2017-11-07] MEDS: Insulin LISPRO 300 UNITS/3 ML VIAL SQ SCH ×2 (07:53→11:54)
--- NOTE | 2017-11-07 07:59 | Physician Discharge Referral ---
ExtendedCare Referral Info Transfer To: [facility] Provider in Charge: Russell Mercer Provider in Charge after Transfer: PCP, Other - Diagnosis (1) Charcot foot due to diabetes mellitus Priority: Primary Status: Acute Prognosis: Fair Aware of Diagnosis: Patient Aware of Prognosis: Patient - Transfer Medications Home Medications: Cetirizine HCl [24Hour Allergy] 10 mg PO DAILY PRN 01/19/17 [History] Insulin Glargine [Lantus] 45 unit SQ BID 01/19/17 [History] Lisinopril/Hydrochlorothiazide [Zestoretic 20-25 mg Tablet] 2 tab PO DAILY 01/19 [History] Meloxicam [Mobic] 15 mg PO DAILY 01/19/17 [History] Pantoprazole Sodium [Protonix] 40 mg PO DAILY 01/19/17 [History] Tramadol HCl [Ultram] 50 mg PO QID PRN 01/19/17 [History] ARIPiprazole [Abilify] 10 mg PO DAILY 07/27/17 [History] Buspirone HCl [Buspar] 60 mg PO BID 07/27/17 [History] Gabapentin [Neurontin] 400 mg PO TID 07/27/17 [History] Glimepiride [Amaryl] 4 mg PO DAILY 07/27/17 [History] PARoxetine HCl [Paroxetine HCl] 40 mg PO DAILY 07/27/17 [History] Fluocinonide [Fluocinonide] 1 appl TP AD 11/02/17 [History] Lidocaine OINT 1 - 2 gm TP AD 11/02/17 [History] Allergies/Adverse Reactions: 3 Allergy/AdvReac Type Severity Reaction Status Date / Time No Known Allergies Allergy Verified 11/02/17 10:48 - Respiratory Orders Other (CPAP) Smoking Cessation: Smoking cessation has been advised. For more information, call the [place] Tobacco Quit Line at 5-841-LOST-NOW. - Mobility Orders Other (non-weight bearing right lower extremity) - Rehabiliation Orders Other: non-weight bearing right lower extremity - Diet Orders No Concentrated Sweets CERTIFICATION: I certify that the transfer of the above named patient to an Extended Care Facility is necessary for the continuing treatment of the diagnosis listed. The above information is true and accurate reflection of patient's current condition. Confidential - Redisclosure prohibited without a patient's written consent.
[2017-11-07] MEDS ORDERED: Lisinopril-HCTZ 20-12.5mg TABLET PO SCH (09:00)
[2017-11-07] MEDS: Insulin DETEMIR 100 UNIT/ML X5UNITS SQ SCH (09:31)
[2017-11-07] MEDS: Iron Sucrose Complex 200 MG in 0.9 % Sodium Chloride 100 ML IVPB SCH (09:33)
[2017-11-07 10:41] VITALS: BP 151/84
--- NOTE | 2017-11-07 12:11 | Discharge Summary ---
Date of Encounter: 11/07/17 Time of Encounter: 12:00 - Discharge Diagnosis (1) Charcot foot due to diabetes mellitus Priority: Primary Status: Acute - Discharge Medications Home Medications: Cetirizine HCl [24Hour Allergy] 10 mg PO DAILY PRN 01/19/17 [History] Insulin Glargine [Lantus] 45 unit SQ BID 01/19/17 [History] Pantoprazole Sodium [Protonix] 40 mg PO DAILY 01/19/17 [History] Tramadol HCl [Ultram] 50 mg PO QID PRN 01/19/17 [History] ARIPiprazole [Abilify] 10 mg PO DAILY 07/27/17 [History] Buspirone HCl [Buspar] 60 mg PO BID 07/27/17 [History] Gabapentin [Neurontin] 400 mg PO TID 07/27/17 [History] Glimepiride [Amaryl] 4 mg PO DAILY 07/27/17 [History] PARoxetine HCl [Paroxetine HCl] 40 mg PO DAILY 07/27/17 [History] Fluocinonide 1 appl TP AD 11/02/17 [History] Lidocaine OINT 1 - 2 gm TP AD 11/02/17 [History] Allopurinol [Zyloprim 100 MG] 100 mg PO DAILY tablet 11/07/17 [Rx] Cyanocobalamin (B-12) [Vitamin B12] 1,000 mcg PO DAILY tablet 11/07/17 [Rx] Enoxaparin [Lovenox] 40 mg SQ 0600 syringe 11/07/17 [Rx] Ergocalciferol (VITAMIN D2) [Drisdol (50,000 Unit)] 50,000 unit PO QWEEK capsule 11/07/17 [Rx] Lisinopril [Zestril] 5 mg PO DAILY tablet 11/07/17 [Rx] Loratadine [Claritin] 10 mg PO DAILY PRN tablet 11/07/17 [Rx] Allergies/Adverse Reactions: 3 Allergy/AdvReac Type Severity Reaction Status Date / Time No Known Allergies Allergy Verified 11/02/17 10:48 Procedures and tests throughout hospitalization: right charcot foot surgery Labs on day of discharge: Labs from last 24 hours 11/07/17 11/07/17 11/06/17 05:47 05:47 20:25 WBC 5.4 RBC 3.27 L Hgb 9.1 L Hct 27.9 L MCV 85.3 MCH 27.8 L MCHC 32.6 RDW 12.7 Plt Count 241 MPV 9.6 Immature Gran % 0.4 Seg Neutrophils % 60.5 Lymphocytes % 25.6 Monocytes % 8.7 Eosinophils % 4.4 Basophils % 0.4 Neutrophils # 3.3 Lymphocytes # 1.4 Monocytes # 0.5 Eosinophils # 0.2 Basophils # 0.0 Sodium 138 Potassium 4.3 Chloride 105 Carbon Dioxide 30 H BUN 25 H Creatinine 1.28 Est GFR ( Amer) > 60 Est GFR (Non-Af Amer) 60 BUN/Creatinine Ratio 20 Glucose 120 H POC Glucose 169 H Calculated Osmolality 292 Calcium 8.8 11/06/17 16:36 WBC RBC Hgb Hct MCV MCH MCHC RDW Plt Count MPV Immature Gran % Seg Neutrophils % Lymphocytes % Monocytes % Eosinophils % Basophils % Neutrophils # Lymphocytes # Monocytes # Eosinophils # Basophils # Sodium Potassium Chloride Carbon Dioxide BUN Creatinine Est GFR ( Amer) Est GFR (Non-Af Amer) BUN/Creatinine Ratio Glucose POC Glucose 170 H Calculated Osmolality Calcium Preliminary micro results at discharge 11/05/17 08:17 Blood Culture - Preliminary Peripheral Venipuncture No growth. 11/05/17 08:27 Blood Culture - Preliminary Peripheral Venipuncture No growth. - Impressions ITS Impressions Ankle X-Ray 11/02/17 00:00 IMPRESSION: Intraprocedural fluoroscopic spot images as above. See separate procedure report for more information. D/ / Shahzad Conde MD / Shahzad Conde MD Interpreting Provider: Shahzad Conde MD Fluoroscopy 11/02/17 00:00 IMPRESSION: Intraprocedural fluoroscopic spot images as above. See separate procedure report for more information. D/ / Shahzad Conde MD / Shahzad Conde MD Interpreting Provider: Shahzad Conde MD Retroperitoneum Ultrasound 11/04/17 12:30 IMPRESSION: 1. Study limited by patient body habitus. The kidneys are grossly normal in sonographic appearance. 2. Normal sonographic appearance of the urinary bladder, with a [id number] postvoid residual. D/ / Gene Naylor MD / Gene Naylor MD Interpreting Provider: Gene Naylor MD Chest X-Ray 11/05/17 07:27 IMPRESSION: No acute cardiopulmonary disease. D/ / 11/05/2017 08:22:51 Kashif Anderson MD / hood Interpreting Provider: Kashif Anderson MD Date of admission: 11/02/17 20:15 Primary care physician: Cassie Martin CNP Consults: 11/02/17 17:22 Consult to Talent Development Director [CONS] Routine Reason for SW Consult: ECF placement s/p reconstructive surgery 11/02/17 20:16 Consult to Occupational Therapy [CONS] Routine Comment: Evaluate, develop and implement POC Reason for Consult: s/p 11/02 Right ankle and subtalar joint arthrodesis calcaneocuboid joint arthrodesis bone graft major Consult to Physical Therapy [CONS] Routine Comment: Evaluate, develop and implement POC Reason for Consult: s/p Right ankle and subtalar joint arthrodesis calcaneocuboid joint arthrodesis bone graft major 11/04/17 10:12 Consult to Nephrology [CONS] Routine Consulting Provider: Kidney Chery/ALEX/BREE/MARIA GUADALUPE Reason for Consult: ARF Call Completed: Yes Discharging clinician: Russell Mercer Anticipated date of discharge: 11/07/17 - Patient Status Disposition: Transfer SNF Condition: Good - Discharge Instructions Follow Up With: Cassie Martin CNP [Primary Care Provider] - - Diet and Activity Activity: other (non-weight bearing right lower extremity) Diet: diabetic diet - Hospital Course Hospital course: Mr. Bowen is a 47 year old diabetic male s/p right foot charcot surgery. The hospitalist and spring coiling machine setter were consulted. His renal function returned to baseline at the time of discharge. It was recommended he continue lisinopril 5mg daily for renal protection instead of his previous dose home medication. He was also started on allopurinol daily which he will continue upon discharge. He will also be on vitamin D3 50,000 iu/weekly for 3 months. He is to remain non- weight bearing to the right lower extremity. No bandage changes required at nursing facility. Check BMP in 1 week. Follow up in 1 week with me and nephrology in 1 month. - Time Spent with Patient Total time spent providing and/or coordinating discharge services: - VTE Documentation of Mechanical Device: Intermittent pneumatic compression device
--- NOTE | 2017-11-07 12:13 | Internal Med Progress Note ---
Date of Encounter: 11/07/17 Time of Encounter: 07:40 - Assessment and plan (1) Postoperative fever Current Visit: Yes Status: Acute Assessment and plan: Unclear source. He is afebrile for 2 days now. I am not going to start any antibiotics as I do not have a source. We will continue to monitor. (2) YESENIA (acute kidney injury) Current Visit: Yes Status: Acute Assessment and plan: Results. Encourage by mouth intake. His home medications have been restarted. (3) Charcot foot due to diabetes mellitus Current Visit: Yes Status: Acute Assessment and plan: s/p Right ankle and subtalar joint arthrodesis, calcaneocuboid joint arthrodesis , bone graft major. post op management including pain per primary (4) HTN (hypertension) Current Visit: Yes Status: Acute Assessment and plan: resume HCTZ/lisinopril Qualifiers: Qualified Code(s): I10 - Essential (primary) hypertension (5) DM2 (diabetes mellitus, type 2) Current Visit: Yes Status: Acute Assessment and plan: Glucose 137 morning. Continue with Levemir 60 units twice a day. I recommend continuing that at discharge. I did increase it 11/04 from 45 twice a day. A1c is at 8.2. c/w SSI. c/w accu-cheks Qualifiers: Qualified Code(s): E11.00 - Type 2 diabetes mellitus with hyperosmolarity without nonketotic hyperglycemic-hyperosmolar coma (NKHHC); Z79.4 - long-term ( current) use of insulin; Z79.4 - long-term (current) use of insulin; Z79.4 - long-term (current) use of insulin; Z79.4 - intermodal truck driver (current) use of insulin (6) NEHEMIAH (obstructive sleep apnea) Current Visit: Yes Status: Acute Assessment and plan: cpap (7) DVT prophylaxis Current Visit: Yes Status: Acute Assessment and plan: lovenox - Subjective Interval history: Patient was seen and examined. Patient is stable this morning. He is been afebrile. Pain is well controlled. He is up to a chair this morning. - Constitutional Vitals: Temp Pulse Resp BP Pulse Ox 99.1 F 85 20 151/84 95 11/07/17 10:39 11/07/17 10:39 11/07/17 10:39 11/07/17 10:39 11/07/17 10:39 General appearance: Present: pleasant, no acute distress Exam: GEN: NAD CVS: RRR. S1, S2, No m/r/g RESP: CTAB ABD: Soft, NT, ND, +BS EXT: No edema. 2+ DP. No rashes. right foot dressing with no drainage NEURO: Nonfoca Internal Medicine: Result - Labs CBC & Chem 7: 11/07/17 05:47 11/07/17 05:47 Labs: Short CBC 11/07/17 Range/Units 05:47 WBC 5.4 (4.3-11.1) K/mcL Hgb 9.1 L (12.9-16.9) g/dL Hct 27.9 L (37.5-50.1) % Plt Count 241 (140-400) K/mcL Neutrophils # 3.3 (1.6-8.9) K/mcL BMP 11/07/17 05:47 Sodium 138 Potassium 4.3 Chloride 105 Carbon Dioxide 30 H BUN 25 H Creatinine 1.28 Glucose 120 H Calcium 8.8 - VTE Documentation of Mechanical Device: Intermittent pneumatic compression device Consult Discharge Plan - Plan Referrals: Cassie Martin, SOCIAL WORK LECTURER [Primary Care Provider] -
[2017-11-08 03:27] LABS: Alpha 2 Globulin (PEP) 0.81 g/dL (0.48-1.05)
[2017-11-08 11:46] LABS: IFE Reflexed NOT DONE
== END 2017-11-07 14:00 | DRG 951 ==
LOC: SAMDAY 10:13 → 3NENU 18:11
PROVIDERS: ADMIT Podiatrist; ATTEND Podiatrist

== ENCOUNTER 2018-04-08 11:21 | Inpatient (IN) ==
[2018-04-08] MEDS ORDERED: 0.9 % Sodium Chloride 1,000 ML IVC ONE (11:37)
[2018-04-08] MEDS ORDERED: Piperacillin/Tazobactam 3.375 GM in 0.9 % Sodium Chloride Mini Bag 100 ML IVPB ONE (11:37)
[2018-04-08 12:05] LABS: Hemoglobin 13.1 g/dL (12.9-16.9); Immature Platelets 4.8 % (1.1-6.1); Lymphocytes # 0.7 K/mcL (0.6-4.6); Mean Corpuscular HGB Conc 35.4 g/dL (31.6-35.5); Mean Corpuscular Hemoglobin 28.7 pg (28.0-33.3); Mean Platelet Volume 10.2 fL (9.4-12.4); Platelet Count 226 K/mcL (140-400); Red Blood Count 4.57 M/mcL (4.19-5.50); Red Cell Distribution Width 13.4 % (11.5-14.5)
--- NOTE | 2018-04-08 12:16 | Emergency Department Note ---
Disposition Clinical Impression: Diabetic foot ulcer Qualifiers: Diabetic foot ulcer location: heel Diabetes mellitus type: type 2 Laterality: right Non-pressure ulcer stage: unspecified non-pressure ulcer stage Qualified Code(s): E11.621 - Type 2 diabetes mellitus with foot ulcer; L97.419 - Non- pressure chronic ulcer of right heel and midfoot with unspecified severity Osteomyelitis Qualifiers: Osteomyelitis type: unspecified type Osteomyelitis location: foot Laterality: right Qualified Code(s): M86.9 - Osteomyelitis, unspecified Disposition: Admitted As Inpatient Condition: Fair Time of Disposition: 13:26 Extremity Problem HPI - General Chief complaint: ED Extremity Problem,Nontraumatic Stated complaint: RLE Bleeding Swelling post OP Time Seen by Provider: 04/08/18 11:25 Source: patient Mode of arrival: ambulatory Limitations: no limitations Nursing Notes Reviewed: Yes Vital Signs Reviewed: Yes - History of Present Illness HPI Narrative: Patient is a 47-year-old male who presents to [facility] ED with a chief complaint of right lower extremity foot ulceration bleeding out. States he thinks that his hardware might be poking out. States he just noticed yesterday that it started leaking fluid. States he has had intermittent fevers up to 101 degrees Fahrenheit over the last 3 days. Denies any nausea, vomiting , chest pain, difficulty breathing, abdominal pain, problems with urination or bowel movements. Past medical history significant for type 2 diabetes, hypertension, hyperlipidemia. Patient currently not on any blood thinning medications. States he had foot surgery done by his leasing property manager here back in October 2017. Pt Subjective Complaint: extremity pain, extremity swelling Onset (ago): day(s) Consistency: Worsening Injury Location: right, lower extremity Pain Scale: 6 Quality: aching Radiation: none Improves with: nothing Worsens with: palpation Associated symptoms: Reports: fever, change in appearance, swelling. Denies: chest pain, shortness of breath, abdominal pain - Related Data Home Medications Medication Instructions Recorded Confirmed Cetirizine HCl [24Hour Allergy] 10 mg PO DAILY PRN 01/19/17 11/02/17 Insulin Glargine [Lantus] 45 unit SQ BID 01/19/17 11/02/17 Pantoprazole Sodium [Protonix] 40 mg PO DAILY 01/19/17 11/02/17 Tramadol HCl [Ultram] 50 mg PO QID PRN 01/19/17 11/02/17 ARIPiprazole [Abilify] 10 mg PO DAILY 07/27/17 11/02/17 Buspirone HCl [Buspar] 60 mg PO BID 07/27/17 11/02/17 Gabapentin [Neurontin] 400 mg PO TID 07/27/17 11/02/17 Glimepiride [Amaryl] 4 mg PO DAILY 07/27/17 11/02/17 PARoxetine HCl [Paroxetine HCl] 40 mg PO DAILY 07/27/17 11/02/17 Fluocinonide 1 appl TP AD 11/02/17 11/02/17 Lidocaine OINT 1 - 2 gm TP AD 11/02/17 11/02/17 Previous Rx's Medication Instructions Recorded Allopurinol [Zyloprim 100 MG] 100 mg PO DAILY tablet 11/07/17 Cyanocobalamin (B-12) [Vitamin B12] 1,000 mcg PO DAILY tablet 11/07/17 Enoxaparin [Lovenox] 40 mg SQ 0600 syringe 11/07/17 Ergocalciferol (VITAMIN D2) 50,000 unit PO QWEEK capsule 11/07/17 [Drisdol (50,000 Unit)] Gabapentin [Neurontin] 400 mg PO TID 30 Days #90 capsule 11/07/17 Lisinopril [Zestril] 5 mg PO DAILY tablet 11/07/17 Loratadine [Claritin] 10 mg PO DAILY PRN tablet 11/07/17 Tramadol HCl [Ultram] 50 mg PO TID PRN 30 Days #90 tab 11/07/17 Allergies Allergy/AdvReac Type Severity Reaction Status Date / Time No Known Allergies Allergy Verified 11/02/17 10:48 All systems ED: reviewed and negative except as stated. Past Medical History - Past Medical History Attestation: Yes The following information was validated with the patient. Source: patient Medical history: Reports: asthma, diabetes, hypertension, renal disease, other Surgical history: Reports: knee replacement, orthopedic, other, other Psychiatric history: Reports: anxiety, depression - Social History Smoking Status: Former smoker Smokeless Tobacco Status: No Alcohol use: Reports: none Drug use: Reports: none Physical Exam - General Limitations: no limitations General appearance: alert, in no apparent distress - Head Head exam: atraumatic, normocephalic - Eye Eye exam: Present: normal appearance, EOMI - ENT ENT exam: normal exam, normal oropharynx - Neck Neck exam: Present: normal inspection, full ROM, trachea midline - Chest Chest inspection: Present: normal inspection, symmetric chest wall rise - Respiratory Respiratory exam: Present: normal lung sounds bilaterally - Cardiovascular Cardiovascular exam: Present: regular rate, normal rhythm, normal heart sounds - Abdominal Exam Abdominal exam: Present: soft, Non-Tender. Absent: tenderness, distention, guarding, rebound, rigidity - Expanded Lower Extremity Exam Ankle exam: Present: tenderness, swelling 1 - R foot ulceration draining serosanguinous purulent fluid Foot/toe exam: Present: tenderness, swelling. Absent: crepitus Neurovascular/Tendon exam: Present: normal capillary refill. Absent: pulse deficit Gait: observed and limited by pain - Back Exam Back exam: Present: normal inspection, full ROM. Absent: tenderness Course Course Narrative: Patient seen and examined. Right lower extremity complaint. When I removed the walking boot and socks, a moderate amount of serosanguineous purulent fluid burst out of the ulceration. I obtained a wound culture of this. With patient' s recent symptoms of fevers, we will go ahead and do a sepsis workup on him. Since patient has had a bunch of hardware in his foot, we will go ahead and get an x-ray of the foot. We will give a liter fluid bolus as well as start on empiric antibiotics including vancomycin and Zosyn. I discussed with leasing property manager Dr. Cadena who states he will see the patient later today and decided if he will do a washout in the OR either later this afternoon or evening or tomorrow. Patient has been NPO since 8 PM last night. - Reevaluation(s) Reevaluation #1: Labwork shows a leukocytosis with bandemia, chronic kidney disease unchanged from baseline, mild hyponatremia with a corrected sodium of 133, and hyperglycemia with glucose 480. X-ray shows signs of osteomyelitis. I discussed with the hospitalist Dr. Mcneal who has accepted patient for admission Time: 13:26 Vital Signs Temperature 98.6 F 04/08/18 11:23 Pulse Rate 77 05/28/18 11:23 Respiratory Rate 15 04/08/18 11:23 Blood Pressure 128/78 04/08/18 11:23 O2 Sat by Pulse Oximetry 94 04/08/18 11:23 Temperature 98.6 F 04/08/18 11:27 Pulse Rate 77 04/08/18 11:27 Respiratory Rate 15 04/08/18 11:27 Blood Pressure 128/78 04/08/18 11:27 O2 Sat by Pulse Oximetry 94 04/08/18 11:27 Oxygen Delivery Oxygen Delivery Room Air Extremity Problem, Nontraumati - Medical Records Medical records reviewed: Yes I reviewed the patient's medical records. - Lab Data Lab results reviewed: Yes I reviewed the patient's lab results. Result diagrams: 04/08/18 11:49 04/08/18 11:37 Lab Results 04/08/18 04/08/18 04/08/18 Range/Units 11:37 11:37 11:49 WBC 12.4 H (4.3-11.1) K/mcL RBC 4.57 (4.19-5.50) M/mcL Hgb 13.1 (12.9-16.9) g/dL Hct 37.0 L (37.5-50.1) % MCV 81.0 L (83.0-100.0) fL MCH 28.7 (28.0-33.3) pg MCHC 35.4 (31.6-35.5) g/dL RDW 13.4 (11.5-14.5) % Plt Count 226 (140-400) K/mcL MPV 10.2 (9.4-12.4) fL Seg Neutrophils % 86.0 % Band Neutrophils % 6.0 H (0-4) % Lymphocytes % 6.0 % Eosinophils % 2.0 % Neutrophils # 11.4 H (1.6-8.9) K/mcL Lymphocytes # 0.7 (0.6-4.6) K/mcL Eosinophils # 0.3 (0.0-0.6) K/mcL Platelet Estimate Normal (Normal) Immature Plt Fraction 4.8 (1.1-6.1) % PT 12.8 H (9.4-12.1) Seconds INR 1.2 APTT 27.9 (26.0-36.0) Seconds Sodium 124 L (136-145) mEq/L Potassium 3.9 (3.5-5.1) mEq/L Chloride 92 L (98-107) mEq/L Carbon Dioxide 21 L (23-29) mEq/L BUN 19 (6-20) mg/dL Creatinine 1.34 H (0.70-1.30) mg/dL Est GFR ( Amer) > 60 (> 60) Est GFR (Non-Af Amer) 57 L (> 60) BUN/Creatinine Ratio 14 (6-26) Glucose 482 H (70-105) mg/dL Calculated Osmolality 282 (280-300) Lactic Acid (0.5-2.2) mmol/L Calcium 8.9 (8.6-10.3) mg/dL Phosphorus 1.8 L (2.7-4.5) mg/dL 04/08/18 Range/Units 12:08 WBC (4.3-11.1) K/mcL RBC (4.19-5.50) M/mcL Hgb (12.9-16.9) g/dL Hct (37.5-50.1) % MCV (83.0-100.0) fL MCH (28.0-33.3) pg MCHC (31.6-35.5) g/dL RDW (11.5-14.5) % Plt Count (140-400) K/mcL MPV (9.4-12.4) fL Seg Neutrophils % % Band Neutrophils % (0-4) % Lymphocytes % % Eosinophils % % Neutrophils # (1.6-8.9) K/mcL Lymphocytes # (0.6-4.6) K/mcL Eosinophils # (0.0-0.6) K/mcL Platelet Estimate (Normal) Immature Plt Fraction (1.1-6.1) % PT (9.4-12.1) Seconds INR APTT (26.0-36.0) Seconds Sodium (136-145) mEq/L Potassium (3.5-5.1) mEq/L Chloride (98-107) mEq/L Carbon Dioxide (23-29) mEq/L BUN (6-20) mg/dL Creatinine (0.70-1.30) mg/dL Est GFR ( Amer) (> 60) Est GFR (Non-Af Amer) (> 60) BUN/Creatinine Ratio (6-26) Glucose (70-105) mg/dL Calculated Osmolality (280-300) Lactic Acid 1.7 (0.5-2.2) mmol/L Calcium (8.6-10.3) mg/dL Phosphorus (2.7-4.5) mg/dL - Radiology Data Radiology results reviewed: Yes I reviewed the patient's radiology results. Foot X-Ray 04/08/18 11:39 IMPRESSION: Persistent soft tissue swelling with areas of increased lucency most significant in the lateral aspect suspicious for infection with a possible underlying abscess. Fixation screws in the lateral distal aspect of the calcaneus appear to be displaced when compared to the prior exams with probable fracture of the 2nd most distal screw. There are also increased erosive changes of the lateral aspects of the navicularis and talus on the oblique view. Findings are suspicious for osteomyelitis. D/ / 04/08/2018 12:41:16 Rayne Steinberg MD / lars Interpreting Provider: Rayne Steinberg MD - EKG Data EKG attestation: Yes I reviewed and interpreted this EKG. EKG results narrative: EKG done at 1149 shows normal sinus rhythm with a rate of [address] elevation or depression. Normal axis.
--- NOTE | 2018-04-08 12:39 | Emergency Department Note ---
Disposition Clinical Impression: Diabetic foot ulcer Qualifiers: Diabetic foot ulcer location: heel Diabetes mellitus type: type 2 Laterality: right Non-pressure ulcer stage: unspecified non-pressure ulcer stage Qualified Code(s): E11.621 - Type 2 diabetes mellitus with foot ulcer Disposition: Admitted As Inpatient Forms: ED Satisfaction Letter General Adult HPI - General Chief complaint: ED Extremity Problem,Nontraumatic Stated complaint: RLE Bleeding Swelling post OP Time Seen by Provider: 04/08/18 11:25 Source: patient Mode of arrival: ambulatory Limitations: no limitations - History of Present Illness Pain Scale: 6 - Related Data Home Medications Medication Instructions Recorded Confirmed Cetirizine HCl [24Hour Allergy] 10 mg PO DAILY PRN 01/19/17 11/02/17 Insulin Glargine [Lantus] 45 unit SQ BID 01/19/17 11/02/17 Pantoprazole Sodium [Protonix] 40 mg PO DAILY 01/19/17 11/02/17 Tramadol HCl [Ultram] 50 mg PO QID PRN 01/19/17 11/02/17 ARIPiprazole [Abilify] 10 mg PO DAILY 07/27/17 11/02/17 Buspirone HCl [Buspar] 60 mg PO BID 07/27/17 11/02/17 Gabapentin [Neurontin] 400 mg PO TID 07/27/17 11/02/17 Glimepiride [Amaryl] 4 mg PO DAILY 07/27/17 11/02/17 PARoxetine HCl [Paroxetine HCl] 40 mg PO DAILY 07/27/17 11/02/17 Fluocinonide 1 appl TP AD 11/02/17 11/02/17 Lidocaine OINT 1 - 2 gm TP AD 11/02/17 11/02/17 Previous Rx's Medication Instructions Recorded Allopurinol [Zyloprim 100 MG] 100 mg PO DAILY tablet 11/07/17 Cyanocobalamin (B-12) [Vitamin B12] 1,000 mcg PO DAILY tablet 11/07/17 Enoxaparin [Lovenox] 40 mg SQ 0600 syringe 11/07/17 Ergocalciferol (VITAMIN D2) 50,000 unit PO QWEEK capsule 11/07/17 [Drisdol (50,000 Unit)] Gabapentin [Neurontin] 400 mg PO TID 30 Days #90 capsule 11/07/17 Lisinopril [Zestril] 5 mg PO DAILY tablet 11/07/17 Loratadine [Claritin] 10 mg PO DAILY PRN tablet 11/07/17 Tramadol HCl [Ultram] 50 mg PO TID PRN 30 Days #90 tab 11/07/17 Allergies Allergy/AdvReac Type Severity Reaction Status Date / Time No Known Allergies Allergy Verified 11/02/17 10:48 Past Medical History - Past Medical History Medical history: Reports: asthma, diabetes, hypertension, renal disease, other Surgical history: Reports: knee replacement, orthopedic, other, other Psychiatric history: Reports: anxiety, depression - Social History Smoking Status: Former smoker Smokeless Tobacco Status: No Alcohol use: Reports: none Drug use: Reports: none Physical Exam - General Limitations: no limitations General appearance: alert, in no apparent distress Course Vital Signs Temperature 98.6 F 04/08/18 11:23 Pulse Rate 77 04/08/18 11:23 Respiratory Rate 15 04/08/18 11:23 Blood Pressure 128/78 04/08/18 11:23 O2 Sat by Pulse Oximetry 94 04/08/18 11:23 Temperature 98.6 F 04/08/18 11:27 Pulse Rate 77 04/08/18 11:27 Respiratory Rate 15 04/08/18 11:27 Blood Pressure 128/78 04/08/18 11:27 O2 Sat by Pulse Oximetry 94 04/08/18 11:27 Oxygen Delivery Oxygen Delivery Room Air Attestation Statement - Attestation Attestation: I examined this patient and my medical decision-making was reviewed with the Resident Physician. I agree with the documented findings, disposition and treatment plan as described except to the extent set forth below. 47 year old male presents to the ED with complaints of RLE pain and swelling and drainage. HE follows with podiatry (henny/shorts) and he has a history of charcot foot and mutilpe revision with hardware in his foot whic omst recently has become eryhtematous and then puruluent discharge on inspection with intermittemnet fevers at home. We have discussed case with Dr. Cruz and he will probably take him to the OR For washout. NPO now, and sepsis workup iniatated with admission to medicine.
[2018-04-08 12:49] LABS: Eosinophils # 0.3 K/mcL (0.0-0.6); Neutrophils # 11.4 K/mcL (1.6-8.9); Platelet Estimate Normal (Normal)
[2018-04-08 12:53] LABS: INR 1.2; Prothrombin Time 12.8 Seconds (9.4-12.1)
[2018-04-08 12:56] LABS: Activated Partial Thrombo Time 27.9 Seconds (26.0-36.0)
[2018-04-08] MEDS ORDERED: *HR* FentaNYL (PF) 100 MCG/2 ML VIAL IVP ONE (12:57)
[2018-04-08 13:16] LABS: BUN/Creatinine Ratio 14 (6-26); Blood Urea Nitrogen 19 mg/dL (6-20); Calcium 8.9 mg/dL (8.6-10.3); Carbon Dioxide 21 mEq/L (23-29); Chloride 92 mEq/L (98-107); Glucose 482 mg/dL (70-105); Osmolality,Calculated 282 (280-300); Phosphorous 1.8 mg/dL (2.7-4.5); Potassium 3.9 mEq/L (3.5-5.1); Sodium 124 mEq/L (136-145); eGFR For African Americans > 60 (> 60); eGFR For Non-African Americans 57 (> 60)
[2018-04-08] MEDS ORDERED: Naloxone 0.4 MG/ML INJ IVP PRN (13:34)
[2018-04-08] MEDS ORDERED: traMADol 50 MG TABLET PO PRN (13:34)
[2018-04-08] MEDS ORDERED: Acetaminophen 325 MG TABLET PO PRN (13:34)
--- NOTE | 2018-04-08 13:48 | Internal Med History&Physical ---
<Dorian Cooper - Last Filed: 04/08/18 14:15> Date of Encounter: 04/08/18 Time of Encounter: 13:42 Internal Medicine - H&P: HPI Admitted From: Home Plans for Post Hospital Care: Home History of present illness: Mr. Bowen is a 47 year old male 's past medical history of diabetes and right foot Charcot arthropathy who presents to [facility] ED with a chief complaint of right lower extremity foot ulceration bleeding out. He had multiple right foot surgery by podiatrists in the past, most recent one was in October 2017. States he thinks that his hardware might be poking out. States he just noticed yesterday that it started leaking fluid. States he has had intermittent fevers up to 101 degrees over the last 3 days. Denies any nausea, vomiting, chest pain, difficulty breathing, abdominal pain, problems with urination or bowel movements. At the ED, XR right foot revealed displaced hardware, possible broken screw, and possible osteomyelitis. he received antibiotics with Zosyn and vancomycin. Inspector And Clerk was called and the plan is to take patient to OR for washout and readjust hardware. Patient will be admitted as inpatient for further management. Past Med Surg Social Fam HX - Past Medical History Medical history: asthma, diabetes, hypertension, renal disease, other Psychiatric history: anxiety, depression - Past Surgical History Surgical History: knee replacement, orthopedic, other, other - Social History Smoking Status: Former smoker Smokeless Tobacco Status: No Alcohol use: none Drug use: none Internal Medicine - H&P: Meds Cetirizine HCl [24Hour Allergy] 10 mg PO DAILY PRN 01/19/17 [History] Insulin Glargine [Lantus] 45 unit SQ BID 01/19/17 [History] Tramadol HCl [Ultram] 50 mg PO QID PRN 01/19/17 [History] ARIPiprazole [Abilify] 10 mg PO DAILY 07/27/17 [History] Buspirone HCl [Buspar] 30 mg PO BID 07/27/17 [History] Glimepiride [Amaryl] 4 mg PO DAILY 07/27/17 [History] PARoxetine HCl [Paroxetine HCl] 40 mg PO DAILY 07/27/17 [History] Allopurinol [Zyloprim 100 MG] 100 mg PO DAILY tablet 11/07/17 [Rx] Cyanocobalamin (B-12) [Vitamin B12] 1,000 mcg PO DAILY tablet 11/07/17 [Rx] Gabapentin [Neurontin] 400 mg PO TID 30 Days #90 capsule 11/07/17 [Rx] Ergocalciferol (VITAMIN D2) [Drisdol (50,000 Unit)] 50,000 unit PO TU 04/08/18 [ History] Insulin ASPART [Novolog Flexpen] 15 - 25 unit SQ TIDWM 04/08/18 [History] Meloxicam [Mobic] 15 mg PO DAILY 04/08/18 [History] Metoprolol Succinate [Toprol Xl] 50 mg PO DAILY 04/08/18 [History] 3 Allergy/AdvReac Type Severity Reaction Status Date / Time No Known Allergies Allergy Verified 11/02/17 10:48 All Systems PM: A 10-system review of systems was performed and is negative for pertinent findings except as documented above in the HPI. Review of systems: REVIEW OF SYSTEMS: CONSTITUTIONAL: see HPI. HEENT: Eyes: No visual loss, blurred vision, double vision or yellow sclerae. Ears, Nose, Throat: No hearing loss, sneezing, congestion, runny nose or sore throat. SKIN: No rash or itching. CARDIOVASCULAR: No chest pain, chest pressure or chest discomfort. No palpitations or edema. RESPIRATORY: No shortness of breath, cough or sputum. GASTROINTESTINAL: No anorexia, nausea, vomiting or diarrhea. No abdominal pain or blood. GENITOURINARY: No dysuria, urgency, or frequency. NEUROLOGICAL: No headache, dizziness, syncope, paralysis, ataxia, numbness or tingling in the extremities. No change in bowel or bladder control. MUSCULOSKELETAL: see HPI. HEMATOLOGIC: No anemia, bleeding or bruising. LYMPHATICS: No enlarged nodes. No history of splenectomy. PSYCHIATRIC: No history of depression or anxiety. ENDOCRINOLOGIC: No reports of sweating, cold or heat intolerance. No polyuria or polydipsia. - Constitutional Vitals: Temp Pulse Resp BP Pulse Ox 98.6 F 69 20 114/66 99 04/08/18 11:27 04/08/18 13:31 04/08/18 13:31 04/08/18 13:31 04/08/18 13:31 General appearance: Present: A&O X 3 Exam: PHYSICAL EXAMINATION: GENERAL APPEARANCE: The patient is alert, oriented and in no acute distress. HEENT: Head is normocephalic. The sinuses are nontender. Pupils are equal and reactive. The nares are patent. Oropharynx clear without lesions. NECK: Supple without lymphadenopathy. HEART: Regular rate and rhythm. LUNGS: No crackles or wheezes are heard. ABDOMEN: Soft, nontender, nondistended with good bowel sounds heard. Inguinal area is normal. EXTREMITIES: right hindfoot bloody drainage noted. NEUROLOGICAL: Gross nonfocal. SKIN: Warm and dry without any rash. Internal Med - H&P Results - Labs CBC & Chem 7: 04/08/18 11:49 04/08/18 11:37 - Assessment and plan (1) Sepsis Current Visit: Yes Status: Acute Assessment and plan: Patient had a fever, WBC elevated, likely infection of her right foot. Blood culture and wound culture sent. Lactic acid is normal. Continue IV fluid. Continue current antibiotics. ID consult tomorrow. 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 Inspector And Clerk was consulted, plan was to take the patient to OR for washout and readjust hardware. Hospitalist will continue manage the infection. - Blood culture, wound culture sent, patient received Zosyn and vancomycin at the ED. - Continue antibiotics, consult ID tomorrow. - Podiatry following. Qualifiers: Diabetic foot ulcer location: heel Diabetes mellitus type: type 2 Laterality: right Non-pressure ulcer stage: unspecified non-pressure ulcer stage Qualified Code(s): E11.621 - Type 2 diabetes mellitus with foot ulcer; L97.419 - Non-pressure chronic ulcer of right heel and midfoot with unspecified severity (3) Osteomyelitis Current Visit: Yes Status: Acute Assessment and plan: X-ray of right foot revealed possible osteomyelitis, patient received Zosyn and vancomycin at ED, cultures sent, will continue current antibiotics, will consult ID tomorrow. Qualifiers: Osteomyelitis type: other acute Osteomyelitis location: foot Laterality: right Qualified Code(s): M86.171 - Other acute osteomyelitis, right ankle and foot (4) Hyponatremia syndrome Current Visit: Yes Status: Acute Assessment and plan: Unknown etiology, continue IV fluid, repeat BMP in a.m. (5) DM2 (diabetes mellitus, type 2) Current Visit: No Status: Acute Assessment and plan: Poorly controlled diabetes, continue home dose of long-acting insulin, decrease the dose of bolus insulin before each meal, started patient on insulin sliding scale. Qualifiers: Diabetes mellitus detention insulin use: with detention use Diabetes mellitus complication detail: without coma Qualified Code(s): E11.00 - Type 2 diabetes mellitus with hyperosmolarity without nonketotic hyperglycemic- hyperosmolar coma ([facility]); Z79.4 - watermelon inspector (current) use of insulin (6) HTN (hypertension) Current Visit: No Status: Chronic Assessment and plan: BP controlled, continue home medication. Qualifiers: Hypertension type: unspecified Qualified Code(s): I10 - Essential (primary ) hypertension (7) CKD (chronic kidney disease) Current Visit: No Status: Chronic Assessment and plan: Creatinine at the baseline, continue monitoring. Continue IV fluid. Qualifiers: Chronic kidney disease stage: stage 2 (mild) Qualified Code(s): N18.2 - Chronic kidney disease, stage 2 (mild) (8) Hypomagnesemia Current Visit: Yes Status: Acute Assessment and plan: Replaced, check magnesium in a.m. - Time Spent With Patient Total time spent is greater than 50% in coordination of care (as documented) at patient's floor/unit and/or counseling patient: Greater than 35 minutes <Kacey Mcneal - Last Filed: 04/08/18 15:21> Date of Encounter: 04/08/18 Internal Medicine - H&P: HPI History of present illness: Mr. Bowen is a 47 year old male All Systems PM: A 10-system review of systems was performed and is negative for pertinent findings except as documented above in the HPI. - Constitutional Vitals: Temp Pulse Resp BP Pulse Ox 98.5 F 68 16 130/70 96 04/08/18 14:29 04/08/18 14:29 04/08/18 14:29 04/08/18 14:29 04/08/18 14:29 Internal Med - H&P Results - Labs CBC & Chem 7: 04/08/18 11:49 04/08/18 11:37 - Attending Attestation I saw and examined this patient independently, and my medical decision making was reviewed with the CASE PLANNER/PA on 2017. I agree with the documented findings , assessment and treatment plan as described in the H&P. 1. Morbid obesity with BMI 53 2. hypomagnesemia, replaced - Time Spent With Patient Total time spent is greater than 50% in coordination of care (as documented) at patient's floor/unit and/or counseling patient:
[2018-04-08 13:50] LABS: Magnesium 1.3 mg/dL (1.6-2.6)
[2018-04-08] MEDS ORDERED: Loratadine 10 MG TABLET PO PRN (13:56)
[2018-04-08] MEDS ORDERED: *HR* Dextrose 50 % in Water (Syg) 50 ML SYRINGE IVP PRN (13:58)
[2018-04-08] MEDS ORDERED: D5% in Water 1,000 ML IVC PRN (13:58)
[2018-04-08] MEDS ORDERED: Dextrose Gel 15 GM/37.5 ML TUBE PO PRN ×2 (13:58)
[2018-04-08] MEDS: 0.9 % Sodium Chloride 1,000 ML IVC SCH (16:19)
[2018-04-08] MEDS: Insulin LISPRO 300 UNITS/3 ML VIAL SQ SCH ×2 (16:20→16:22)
[2018-04-08] MEDS: Gabapentin 400 MG CAPSULE PO SCH ×2 (16:20→21:31)
[2018-04-08] MEDS: *HR* Heparin 5,000 UNIT/ML VIAL SQ SCH (16:22)
[2018-04-08] MEDS ORDERED: Ondansetron 4 MG/2 ML VIAL IVP PRN (17:17)
[2018-04-08] MEDS ORDERED: NON-FORMULARY MEDICATION 1 EACH EACH (Insulin Glargine [Lantus] 45 UNIT) SQ SCH (21:00)
[2018-04-08] MEDS ORDERED: Insulin LISPRO 300 UNITS/3 ML VIAL SQ SCH (21:00)
[2018-04-08] MEDS: Insulin DETEMIR 100 UNIT/ML X5UNITS SQ SCH (21:32)
[2018-04-08] MEDS: Piperacillin/Tazobactam 3.375 GM in 0.9 % Sodium Chloride Mini Bag 100 ML IVPB SCH (21:33)
[2018-04-08] MEDS: traMADol 50 MG TABLET PO PRN (23:40)
[2018-04-09] MEDS: *HR* Heparin 5,000 UNIT/ML VIAL SQ SCH ×3 (01:06→14:47)
[2018-04-09] MEDS: 0.9 % Sodium Chloride 1,000 ML IVC SCH (04:57)
[2018-04-09] MEDS: Piperacillin/Tazobactam 3.375 GM in 0.9 % Sodium Chloride Mini Bag 100 ML IVPB SCH ×3 (04:57→20:52)
[2018-04-09 06:28] LABS: Basophils % 0.3 %; Eosinophils # 0.1 K/mcL (0.0-0.6); Hematocrit 36.7 % (37.5-50.1); Hemoglobin 12.5 g/dL (12.9-16.9); Immature Granulocytes % 0.8 % (0-4); Lymphocytes % 10.3 %; Mean Corpuscular HGB Conc 34.1 g/dL (31.6-35.5); Mean Corpuscular Hemoglobin 27.8 pg (28.0-33.3); Mean Corpuscular Volume 81.6 fL (83.0-100.0); Mean Platelet Volume 10.1 fL (9.4-12.4); Monocytes % 10.2 %; Neutrophils # 7.5 K/mcL (1.6-8.9); Platelet Count 211 K/mcL (140-400); Red Cell Distribution Width 13.8 % (11.5-14.5); Segmented Neutrophils % 77.4 %
[2018-04-09 07:02] LABS: BUN/Creatinine Ratio 11 (6-26); Blood Urea Nitrogen 15 mg/dL (6-20); Calcium 8.4 mg/dL (8.6-10.3); Carbon Dioxide 21 mEq/L (23-29); Chloride 100 mEq/L (98-107); Glucose 239 mg/dL (70-105); Osmolality,Calculated 279 (280-300); Potassium 3.5 mEq/L (3.5-5.1); Sodium 130 mEq/L (136-145); eGFR For African Americans > 60 (> 60); eGFR For Non-African Americans 57 (> 60)
--- NOTE | 2018-04-09 07:04 | Podiatry Consult Note ---
Date of Encounter: 04/09/18 Time of Encounter: 06:15 Assessment and Plan (1) Abscess of right foot Current visit: Yes Status: Acute Chronic charcot s/p surgery in 2017. Developed infection/abscess over last few days. Questionable osteomyelitis navicular and talus vs charcot. Broken hardware. I had a thorough review with the patient regarding his condition, my findings, and recommendations for treatment. We discussed the infection present and drainage coming out of the area. We discussed that he is high risk for limb loss and concern for infection in the soft tissue and bone. We discussed performing an incision and drainage of the right foot/ankle, debriding nonviable tissue, bone biopsy and removing hardware all on the right foot. Nature of these procedures, risks versus benefits potential complications and consequences discussed with the patient at length. He understood that he will have a wound and will require more surgery and this is a staged procedure. It was also made clear that he could end up with an above or below knee amputation. No guarantees were made that his leg would be salvagable. He says he understands. All questions were answered and the informed consent was signed. Added on to OR. (2) Charcot foot due to diabetes mellitus Current visit: No Status: Acute see above. non-weight bearing right lower extremity. History of Present Illness HPI: Mr. Bowen is a 47 year old diabetic male with previous surgery for his right foot/ankle charcot. He says in the bathroom on or Sunday and heard a loud pop from the right foot. Nothing hurt and he did not think anything of it. He says on Sunday he thought he was going to have diarrhea so he ran to the bathroom without his boot on and he says a blood blister was present on the bottom of his foot and opened up. He says on sunday he started to see some drainage out of that area and his foot was swollen. He says he had a fever and he came to the hospital. Podiatry was consulted. Past Med Surg Social Fam HX - Past Medical History Medical history: arthritis, asthma, diabetes, hypertension, renal disease, other Psychiatric history: anxiety, depression - Past Surgical History Surgical History: knee replacement, orthopedic, other, other - Social History Smoking Status: Former smoker Smokeless Tobacco Status: No Alcohol use: none Drug use: none Medications and Allergies Cetirizine HCl [24Hour Allergy] 10 mg PO DAILY PRN 01/19/17 [History] Insulin Glargine [Lantus] 45 unit SQ BID 01/19/17 [History] Tramadol HCl [Ultram] 50 mg PO QID PRN 01/19/17 [History] ARIPiprazole [Abilify] 10 mg PO DAILY 07/27/17 [History] Buspirone HCl [Buspar] 30 mg PO BID 07/27/17 [History] Glimepiride [Amaryl] 4 mg PO DAILY 07/27/17 [History] PARoxetine HCl [Paroxetine HCl] 40 mg PO DAILY 07/27/17 [History] Allopurinol [Zyloprim 100 MG] 100 mg PO DAILY tablet 11/07/17 [Rx] Cyanocobalamin (B-12) [Vitamin B12] 1,000 mcg PO DAILY tablet 11/07/17 [Rx] Gabapentin [Neurontin] 400 mg PO TID 30 Days #90 capsule 11/07/17 [Rx] Ergocalciferol (VITAMIN D2) [Drisdol (50,000 Unit)] 50,000 unit PO TU 04/08/18 [ History] Insulin ASPART [Novolog Flexpen] 15 - 25 unit SQ TIDWM 04/08/18 [History] Meloxicam [Mobic] 15 mg PO DAILY 04/08/18 [History] Metoprolol Succinate [Toprol Xl] 50 mg PO DAILY 04/08/18 [History] 3 Allergy/AdvReac Type Severity Reaction Status Date / Time No Known Allergies Allergy Verified 11/02/17 10:48 All Systems Reviewed: The remainder of the systems were reviewed and are negative - Constitutional Constitutional: fever(s), snoring - Cardiovascular Cardiovascular: no chest pain, no dyspnea - Respiratory Respiratory: no cough - Musculoskeletal Musculoskeletal: joint swelling Physical Exam - Constitutional Vitals: Temp Pulse Resp BP Pulse Ox 99.3 F 101 20 117/71 91 04/09/18 06:45 04/09/18 06:45 04/09/18 06:45 04/09/18 06:45 04/09/18 06:45 General appearance: morbidly obese Exam: well developed obese male in no acute distress, AO x 3 Capillary refill time less than 3 seconds 5 digits right foot. Right foot is warm to touch. There is evidence of a bulla which is approximately 2 cm x 2 cm at the plantar lateral border of the foot and a circular ulceration plantarly measuring approximately 0.5cmx0.5cm with some evidence of purulent drainage.absent sensation to touch. No pain expressed with palpation of lateral foot/ankle or medial foot/ankle. some erythema of the plantar foot, no erythema of the lateral ankle. no ascending lymphangitis. No abdominal tenderness. Respirations are nonlabored. Results - Labs Result Diagrams: 04/09/18 06:06 04/08/18 11:37 Labs: Abnormal lab results Hgb 12.5 g/dL (12.9-16.9) L 04/09/18 06:06 Hct 36.7 % (37.5-50.1) L 04/09/18 06:06 MCV 81.6 fL (83.0-100.0) L 04/09/18 06:06 MCH 27.8 pg (28.0-33.3) L 04/09/18 06:06 Band Neutrophils % 6.0 % (0-4) H 04/08/18 11:49 ESR 106 mm/hr (0-10) H 04/08/18 18:00 PT 12.8 Seconds (9.4-12.1) H 04/08/18 11:37 Sodium 124 mEq/L (136-145) L 04/08/18 11:37 Chloride 92 mEq/L (98-107) L 04/08/18 11:37 Carbon Dioxide 21 mEq/L (23-29) L 04/08/18 11:37 Creatinine 1.34 mg/dL (0.70-1.30) H 04/08/18 11:37 Est GFR (Non-Af Amer) 57 (> 60) L 04/08/18 11:37 Glucose 482 mg/dL (70-105) H 04/08/18 11:37 POC Glucose 266 mg/dL (70-99) H 04/08/18 20:50 Phosphorus 1.8 mg/dL (2.7-4.5) L 04/08/18 11:37 C-Reactive Protein > 300 mg/L (Less than 10) H 04/08/18 18:00 H & H 04/09/18 Range/Units 06:06 Hgb 12.5 L (12.9-16.9) g/dL Hct 36.7 L (37.5-50.1) % All other labs normal. Consult Discharge Plan - Plan Referrals: Dolly Garcia, WILMAN [Primary Care Provider] -
[2018-04-09] MEDS ORDERED: Cyanocobalamin (B-12) 1,000 MCG TABLET PO SCH (09:00)
[2018-04-09] MEDS ORDERED: Metoprolol XL (24 HR) Succ 50 MG TAB.ER.24H PO SCH (09:00)
[2018-04-09] MEDS: Gabapentin 400 MG CAPSULE PO SCH ×3 (09:00→20:58)
[2018-04-09] MEDS ORDERED: ARIPiprazole 10 MG TABLET PO SCH (09:00)
[2018-04-09] MEDS: Insulin DETEMIR 100 UNIT/ML X5UNITS SQ SCH ×2 (09:00→20:58)
[2018-04-09] MEDS: Insulin LISPRO 300 UNITS/3 ML VIAL SQ SCH ×5 (09:01→18:25)
[2018-04-09] MEDS: traMADol 50 MG TABLET PO PRN (09:23)
--- NOTE | 2018-04-09 14:39 | Infectious Disease Consult ---
Date of Encounter: 04/09/18 Time of Encounter: 14:34 Assessment and Plan (1) Sepsis Status: Acute Assessment and plan: The patient had two SIRS criteria on admission. Likely secondary to right foot infection and OM. Improved. Afebrile since admission. WBC has normalized. Blood cultures drawn 04/08/18 are pending x 2 sets. Qualifiers: Sepsis type: sepsis due to unspecified organism Qualified Code(s): A41.9 - Sepsis, unspecified organism (2) Osteomyelitis Status: Acute Assessment and plan: Causative organism: Unclear. Location: Right foot talus and navicularis. Likely secondary to right foot DFU. X-ray of the right foot completed 04/08/18 showed bony erosion of the talus and navicularis. ESR 106, CRP >300. Wound culture obtained in the ER is pending. Podiatry consulted and following. Planning to take the patient to the OR later today. Wound care and activity restrictions as outline by the podiatry team. Continue Vancomycin IV. Pharmacy to dose. Goal trough ~15. Continue Zosyn 3.375 grams IV Q8H. Duration of treatment depends on the clinical picture, but likely 6 weeks of IV antibiotics. De-escalate based on cultures. Monitor renal function and for drug toxicity and dose-adjust antibiotics. Avoid insertion of central venous access until blood cultures are negative x 48 hours. manager environmental services to assist with discharge planning. Qualifiers: Osteomyelitis type: other acute Osteomyelitis location: foot Laterality: right Qualified Code(s): M86.171 - Other acute osteomyelitis, right ankle and foot (3) Abscess of right foot Status: Acute Assessment and plan: Location: Right foot. Causative organism: Unclear. Wound cultures pending. Podiatry consulted and plan for I & D later today. Antibiotics as above for now. (4) Diabetic foot ulcer Status: Acute Assessment and plan: Etiology unclear. Podiatry consulted and following. Qualifiers: Diabetic foot ulcer location: heel Diabetes mellitus type: type 2 Laterality: right Non-pressure ulcer stage: unspecified non-pressure ulcer stage Qualified Code(s): E11.621 - Type 2 diabetes mellitus with foot ulcer; L97.419 - Non-pressure chronic ulcer of right heel and midfoot with unspecified severity (5) Charcot foot due to diabetes mellitus Status: Acute Assessment and plan: Status post reconstruction 10/[address] Mercer. (6) HTN (hypertension) Status: Chronic Qualifiers: Hypertension type: essential hypertension Qualified Code(s): I10 - Essential (primary) hypertension (7) DM2 (diabetes mellitus, type 2) Status: Acute Assessment and plan: Uncontrolled. HgbA1C 9.4%. Recommend aggressive glucose monitoring and control to promote wound healing and prevent re-infection. Management per the primary team. Qualifiers: Diabetes mellitus termite control representative insulin use: with termite control representative use Diabetes mellitus complication detail: without coma Qualified Code(s): E11.00 - Type 2 diabetes mellitus with hyperosmolarity without nonketotic hyperglycemic- hyperosmolar coma ([facility]); Z79.4 - termite treater helper (current) use of insulin (8) NEHEMIAH (obstructive sleep apnea) Status: Acute (9) Morbid obesity with BMI of 50.0-59.9, adult Status: Acute (10) CKD (chronic kidney disease) Status: Chronic Assessment and plan: Monitor renal function closely. Dose-adjust antibiotics. Avoid nephrotoxins as able. Qualifiers: Chronic kidney disease stage: stage 2 (mild) Qualified Code(s): N18.2 - Chronic kidney disease, stage 2 (mild) Infectious Disease HPI - Data of Consult Patient: new to practice Consult date: 04/09/18 Requesting Physician: Kacey Mcneal MD Primary Care Provider: Dolly Garcia CNP - Consult Narrative Reason for consult: Right foot osteomyelitis History of present illness: Mr. Bowen is a 47 year old male with past medical history of type 2 diabetes for the last 20 years on insulin, hypertension, hyperlipidemia, chronic kidney disease, Charcot arthropathy of the right foot, and morbid obesity. The patient was admitted to the hospital April 08 for os myelitis of the right foot. We are consulted April 09 for further recommendations for osteomyelitis of the right foot. Briefly, the patient is a 47-year-old male with past medical history as stated above. The patient presented to the emergency department with a 4 day history of fevers and diarrhea and new onset of a blister to the lateral aspect of the right heel with seropurulent drainage. Upon arrival to the ER, the patient was afebrile and hemodynamically stable, but reported fevers of 101 home. Laboratory studies revealed a neutrophilic leukocytosis with a serum creatinine reflective of his chronic kidney disease. He was noted to have hyperglycemia and elevated ESR 106 with a CRP greater than 300. He had a right foot x-ray that showed persistent soft tissue swelling and lucency of the lateral aspect concerning for abscess as well as displaced screws and a wound culture was obtained and is pending. His blood cultures obtained 2 sets are pending as well. He was started empirically on vancomycin and Zosyn and admitted to the hospital for further evaluation. Since admission, the patient has remained afebrile and hemodynamically stable. His white blood cell count has normalized. His blood glucose is improved. He has been evaluated by podiatry and is planning to go to the operating room later today. He continues to receive vancomycin and Zosyn. We have been asked to evaluate and make further recommendations. During my exam today, the patient endorses a history as stated above. He reports fevers and chills, but denies any rigors. He reported some headaches at home, but denies any since admission. He denies any neck pain or stiffness. He denies any congestion, earache, or sore throat. He denies any chest pain, shortness of breath, or cough. He reported nausea with vomiting and poor appetite prior to arrival, but states these have all improved. He reports diarrhea at home, but none since admission. He denies any urinary complaints including frequency or dysuria. He denies any back or extremity pain except in the right foot. He states the right foot became red and swollen and painful with onset of a new blister that he noticed on Sunday night that was draining seropurulent foul-smelling drainage. He denies any oral thrush or other skin lesions. He reports a history of multiple diabetic foot ulcers for which she has received IV antibiotics in the past related to his Charcot arthropathy. The patient lives at home with his and 7 children. He reports 2 dogs outside, but denies any contact between the affected extremity and the pets. He denies any alcohol, tobacco, or illicit drug use. He does not work outside the home. CC: Kacey Mcneal MD Past Med Surg Social Fam HX - Past Medical History Attestation: Yes The following information was validated with the patient. Source: patient, old records reviewed, nursing notes reviewed Medical history: arthritis, asthma, diabetes, hypertension, renal disease, other Psychiatric history: anxiety, depression - Past Surgical History Surgical History: knee replacement, orthopedic, other, other - Social History Smoking Status: Former smoker Smokeless Tobacco Status: No Alcohol use: none Drug use: none Occupational status: disabled Current living situation: Home, With Family Activity Level: Uses cane/walker Recent Out of Country Travel Within the Last 8 Weeks: No Exposure or Possible Exposure to Illness During Travel: No Infectious Disease-CN:Meds Cetirizine HCl [24Hour Allergy] 10 mg PO DAILY PRN 01/19/17 [History] Insulin Glargine [Lantus] 45 unit SQ BID 01/19/17 [History] Tramadol HCl [Ultram] 50 mg PO QID PRN 01/19/17 [History] ARIPiprazole [Abilify] 10 mg PO DAILY 07/27/17 [History] Buspirone HCl [Buspar] 30 mg PO BID 07/27/17 [History] Glimepiride [Amaryl] 4 mg PO DAILY 07/27/17 [History] PARoxetine HCl [Paroxetine HCl] 40 mg PO DAILY 07/27/17 [History] Allopurinol [Zyloprim 100 MG] 100 mg PO DAILY tablet 11/07/17 [Rx] Cyanocobalamin (B-12) [Vitamin B12] 1,000 mcg PO DAILY tablet 11/07/17 [Rx] Gabapentin [Neurontin] 400 mg PO TID 30 Days #90 capsule 11/07/17 [Rx] Ergocalciferol (VITAMIN D2) [Drisdol (50,000 Unit)] 50,000 unit PO TU 04/08/18 [ History] Insulin ASPART [Novolog Flexpen] 15 - 25 unit SQ TIDWM 04/08/18 [History] Meloxicam [Mobic] 15 mg PO DAILY 04/08/18 [History] Metoprolol Succinate [Toprol Xl] 50 mg PO DAILY 04/08/18 [History] 3 Allergy/AdvReac Type Severity Reaction Status Date / Time No Known Allergies Allergy Verified 11/02/17 10:48 All systems: reviewed and no additional remarkable complaints except as stated Exam - Constitutional Vitals: Temp Pulse Resp BP Pulse Ox 97.8 F 85 18 132/72 93 04/09/18 11:40 04/09/18 11:40 04/09/18 11:40 04/09/18 11:40 04/09/18 11:40 General appearance: cooperative, morbidly obese, no acute distress - Head Head exam: Present: atraumatic, normal inspection, normocephalic - Eye Eye exam: Present: EOMI, normal appearance, PERRL Pupils: Present: normal accommodation - ENT ENT exam: Present: mucous membranes moist - Neck Neck exam: Present: normal inspection - Respiratory Respiratory exam: Present: CTAB. Absent: rales, respiratory distress, rhonchi, wheezes - Cardiovascular Cardiovascular exam: Present: RRR, +S1, +S2 - GI/Abdominal GI/Abdominal exam: Present: distended (obese), normal bowel sounds, soft. Absent: tenderness - Extremities Exam Extremities exam: Present: tenderness (Right lterl heel). Absent: pedal edema - Expanded Lower Extremity Exam 1 - Foot ulcer with seropurulent drainage noted. Skin surrounding ulceration is macerated, - Neurological Exam Neurological exam: Present: alert, oriented X3, no focal deficits - Psychiatric Psychiatric exam: Present: normal affect, normal mood - Skin Skin exam: Present: dry, intact, normal color, warm Infectious Disease CN: Results - Labs CBC & Chem 7: 04/10/18 08:54 04/10/18 08:54 Consult Discharge Plan - Plan Referrals: Dolly Garcia CNP [Primary Care Provider] - - Attending Attestation I examined this patient and my medical decision-making was reviewed with the Resident Physician. I agree with the documented findings, disposition and treatment plan as described except to the extent set forth below. this is an Addendum to original report dictated by Agueda gunderson CNP. please refer to her note for full details. Patient is a 47 year old gentleman with past medical history mentioned below came to [facility] on April 08 with 4 day history of fevers, diarrhea, onset of blister on lateral aspect of the right heel and seropurulent drainage. patient states that 6 months ago he underwent surgery for Charcot foot. Patient did well post op but about one week prior to admission he noted a blister on the foot that ruptured with serosanguinous and foul smelling drainage associated with fevers and malaise at home.Since Admission, the patient was afebrile and hemodynamically stable, but reported fevers of 101 home. Laboratory studies revealed a neutrophilic leukocytosis with a serum creatinine reflective of his chronic kidney disease. He was noted to have hyperglycemia and elevated ESR 106 with a CRP greater than 300. He had a right foot x-ray that showed persistent soft tissue swelling and lucency of the lateral aspect concerning for abscess as well as displaced screws and a wound culture was obtained and is pending. His blood cultures obtained 2 sets are pending as well. He was started empirically on vancomycin and Zosyn and admitted to the hospital for further evaluation.cultures were obtained from the wound and blood and are pendingpatient had breakfast but scheduled for surgery later today. A/P: Sepsis Osteomyelitis Abscess right foot DM II with poor control A1C around 9.5 HTN REcommdantions: await for cultures to finalize await to see what intra op findings and if all the hardware is removed continue vancomycin and zosyn for now goal vancomycin trough around 15 for now monitor kidney function closely monitor labs and for drug toxicity duration of treamtent likely 6 weeks
[2018-04-09 14:42] LABS: Estimated Average Glucose 223 mg/dl; Hemoglobin A1C 9.4 %
--- NOTE | 2018-04-09 16:15 | Internal Med Progress Note ---
Date of Encounter: 04/09/18 Time of Encounter: 10:30 - Assessment and plan (1) Diabetic foot ulcer Current Visit: Yes Status: Acute Assessment and plan: 47 male with diabetes and diabetic arthropathy, and multiple right foot revision by car dealer, most recent one in October 2017, presented with right foot foot and a bloody drainage, associated with fever, x-ray right foot showed swelling soft tissue, possible abscess, possible underlying osteomyelitis, displaced heart well, and a possible broken screw. Bereavement Program Coordinator was consulted, plan was to take the patient to OR for washout and readjust hardware. Hospitalist will continue manage the infection. - Blood culture, wound culture sent, patient received Zosyn and vancomycin at the ED. - Continue antibiotics, consult ID tomorrow. - Podiatry following. 04/09: Day #2 Zosyn/Vancomycin. I&D this afternoon Qualifiers: Diabetic foot ulcer location: heel Diabetes mellitus type: type 2 Laterality: right Non-pressure ulcer stage: unspecified non-pressure ulcer stage Qualified Code(s): E11.621 - Type 2 diabetes mellitus with foot ulcer; L97.419 - Non-pressure chronic ulcer of right heel and midfoot with unspecified severity (2) Osteomyelitis Current Visit: Yes Status: Acute Assessment and plan: X-ray of right foot revealed possible osteomyelitis, patient received Zosyn and vancomycin at ED, cultures sent, will continue current antibiotics, will consult ID tomorrow. 04/09: Await I&D, abx as described above Qualifiers: Osteomyelitis type: other acute Osteomyelitis location: foot Laterality: right Qualified Code(s): M86.171 - Other acute osteomyelitis, right ankle and foot (3) HTN (hypertension) Current Visit: No Status: Chronic Assessment and plan: BP controlled, continue home medication. Qualifiers: Hypertension type: unspecified Qualified Code(s): I10 - Essential (primary ) hypertension (4) DM2 (diabetes mellitus, type 2) Current Visit: No Status: Acute Assessment and plan: Poorly controlled diabetes, continue home dose of long-acting insulin, decrease the dose of bolus insulin before each meal, started patient on insulin sliding scale. 04/09: Blood sugars are elevated today. As to further adjust just yet given the fact that he is nothing by mouth for surgery. We will continue to monitor. Qualifiers: Diabetes mellitus termite control service representative insulin use: with termite control service representative use Diabetes mellitus complication detail: without coma Qualified Code(s): E11.00 - Type 2 diabetes mellitus with hyperosmolarity without nonketotic hyperglycemic- hyperosmolar coma ([facility]); Z79.4 - terminal gauger (current) use of insulin (5) CKD (chronic kidney disease) Current Visit: No Status: Chronic Assessment and plan: Creatinine at the baseline, continue monitoring. Continue IV fluid. Avoid nephrotoxins as best able Qualifiers: Chronic kidney disease stage: stage 2 (mild) Qualified Code(s): N18.2 - Chronic kidney disease, stage 2 (mild) (6) Hyponatremia syndrome Current Visit: Yes Status: Acute Assessment and plan: Unknown etiology, continue IV fluid, repeat BMP in a.m. 04/09: Patient's hyponatremia is secondary to hypernatremia, " pseudohyponatremia " May also be a component of hypovolemic hyponatremia. Monitor. Sodium is improving. (7) Sepsis Current Visit: Yes Status: Acute Assessment and plan: Patient had a fever, WBC elevated, likely infection of her right foot. Blood culture and wound culture sent. Lactic acid is normal. Continue IV fluid. Continue current antibiotics. ID consult tomorrow. 04/09: Sepsis resolving Qualifiers: Sepsis type: sepsis due to unspecified organism Qualified Code(s): A41.9 - Sepsis, unspecified organism (8) Hypomagnesemia Current Visit: Yes Status: Acute Assessment and plan: Replaced, check magnesium in a.m. 04/09: Improved (9) NEHEMIAH (obstructive sleep apnea) Current Visit: No Status: Acute Assessment and plan: On CPAP, compliant in hospital - Time Spent With Patient Total time spent is greater than 50% in coordination of care (as documented) at patient's floor/unit and/or counseling patient: 25 - 35 minutes - Subjective Interval history: Chief complaint right foot pain HPI: A 47-year-old male with a history of morbid obesity, sleep apnea on CPAP type 2 diabetes mellitus insulin requiring, hypertension, hyperlipidemia, chronic easy stage III, and right Charcot foot. Patient was admitted on April 08 with a complaint of right foot pain, ulcer and bleeding. pt had a blister initially at his Right foot lateral border of the heel, which ruptured and subsequently head bleeding and pus drainage. Patient presented to the emergency room where he was diagnosed with right foot infection with associated heel abscess for which he is planned to undergo I&D today. A she has been seen by both podiatry and infectious disease. Patient did have x-rays of his right foot which showed erosions at the talus and navicularis. Concerning for osteomyelitis. Sedimentation rate was 106, CRP was greater than 300. She is currently day #2 of IV antibiotics, currently Zosyn and vancomycin. Altered data is pending. Pt's other medical issues presently are stable. He is awaiting Podiatric Surgery today. She is denying any fevers or chills. No chest pain or shortness of breath. No nausea, vomiting, diarrhea. - Constitutional Vitals: Temp Pulse Resp BP Pulse Ox 97.8 F 85 18 132/72 93 04/09/18 11:40 04/09/18 11:40 04/09/18 11:40 04/09/18 11:40 04/09/18 11:40 General appearance: Present: A&O X 3, morbidly obese, no acute distress - Head Head exam: Present: atraumatic, normocephalic - Eye Eye exam: Present: PERRL, conjuntiva pink, sclera anicteric Pupils: Present: PERRL - Neck Neck exam general surgery: Present: supple, trachea midline. Absent: lymphadenopathy - Respiratory Respiratory exam: Present: decreased breath sounds - Cardiovascular Cardiovascular exam: Present: RRR, +S1, +S2. Absent: diastolic murmur, gallop, rubs, systolic murmur - GI/Abdominal GI/Abdominal exam: Present: normal bowel sounds, soft, no peritoneal signs. Absent: distended, tenderness - Extremities Exam Extremities exam: Present: warm, radial pulses palpable and symmetrical. Absent : calf tenderness, cyanotic, pedal edema - Skin Skin exam: Present: dry, intact Additional comments: Right foot is dressed presently. Blood is noted on dressing. Internal Medicine: Result - Labs CBC & Chem 7: 04/09/18 06:06 04/09/18 06:06 Labs: Short CBC 04/09/18 Range/Units 06:06 WBC 9.7 (4.3-11.1) K/mcL Hgb 12.5 L (12.9-16.9) g/dL Hct 36.7 L (37.5-50.1) % Plt Count 211 (140-400) K/mcL Neutrophils # 7.5 (1.6-8.9) K/mcL BMP 04/09/18 06:06 Sodium 130 L Potassium 3.5 Chloride 100 Carbon Dioxide 21 L BUN 15 Creatinine 1.34 H Glucose 239 H Calcium 8.4 L - ABG Interpretation ABG results: PT/INR, D-dimer PT 12.8 Seconds (9.4-12.1) H 04/08/18 11:37 Consult Discharge Plan - Plan Referrals: Dolly Garcia, QUALITY ENGINEER [Primary Care Provider] -
--- NOTE | 2018-04-09 18:02 | Anesthesia Evaluation PreOp ---
<Lucy Gentile - Last Filed: 04/09/18 18:26> Date of Encounter: 04/09/18 Time of Encounter: 18:00 - Past History Planned Operation: R-foot/ankle I&D removal hardware Cardiac History: HTN Pulmonary History: Former smoker MANAGER PARKING History: Other (Anxiety/Depression) Other Medical History: Renal (Stage 2 CKDz), Diabetes Type II, Other (R-charcot arthropathy. MO/BMI = 54) Anesthesia History: Past Anesthesia (TKR, multiple R-foot surgeries) Alcohol Use: none Drug use: none Medications and Allergies Cetirizine HCl [24Hour Allergy] 10 mg PO DAILY PRN 01/19/17 [History] Insulin Glargine [Lantus] 45 unit SQ BID 01/19/17 [History] Tramadol HCl [Ultram] 50 mg PO QID PRN 01/19/17 [History] ARIPiprazole [Abilify] 10 mg PO DAILY 07/27/17 [History] Buspirone HCl [Buspar] 30 mg PO BID 07/27/17 [History] Glimepiride [Amaryl] 4 mg PO DAILY 07/27/17 [History] PARoxetine HCl [Paroxetine HCl] 40 mg PO DAILY 07/27/17 [History] Allopurinol [Zyloprim 100 MG] 100 mg PO DAILY tablet 11/07/17 [Rx] Cyanocobalamin (B-12) [Vitamin B12] 1,000 mcg PO DAILY tablet 11/07/17 [Rx] Gabapentin [Neurontin] 400 mg PO TID 30 Days #90 capsule 11/07/17 [Rx] Ergocalciferol (VITAMIN D2) [Drisdol (50,000 Unit)] 50,000 unit PO TU 04/08/18 [ History] Insulin ASPART [Novolog Flexpen] 15 - 25 unit SQ TIDWM 04/08/18 [History] Meloxicam [Mobic] 15 mg PO DAILY 04/08/18 [History] Metoprolol Succinate [Toprol Xl] 50 mg PO DAILY 04/08/18 [History] 3 Allergy/AdvReac Type Severity Reaction Status Date / Time No Known Allergies Allergy Verified 11/02/17 10:48 - Meds/Allergy Pre-op Review Medications Reviewed: Yes Allergies Reviewed: Yes Beta Blockers on Current Med List: Yes (Metoprolol) Anesthesia Results - Labs 04/09/18 06:06 04/09/18 06:06 Laboratory Results WBC 9.7 K/mcL (4.3-11.1) 04/09/18 06:06 RBC 4.50 M/mcL (4.19-5.50) 04/09/18 06:06 Hgb 12.5 g/dL (12.9-16.9) L 04/09/18 06:06 Hct 36.7 % (37.5-50.1) L 04/09/18 06:06 MCV 81.6 fL (83.0-100.0) L 04/09/18 06:06 MCH 27.8 pg (28.0-33.3) L 04/09/18 06:06 MCHC 34.1 g/dL (31.6-35.5) 04/09/18 06:06 RDW 13.8 % (11.5-14.5) 04/09/18 06:06 Plt Count 211 K/mcL (140-400) 04/09/18 06:06 MPV 10.1 fL (9.4-12.4) 04/09/18 06:06 Immature Gran % 0.8 % (0-4) 04/09/18 06:06 Seg Neutrophils % 77.4 % 04/09/18 06:06 Band Neutrophils % 6.0 % (0-4) H 04/08/18 11:49 Lymphocytes % 10.3 % 04/09/18 06:06 Monocytes % 10.2 % 04/09/18 06:06 Eosinophils % 1.0 % 04/09/18 06:06 Basophils % 0.3 % 04/09/18 06:06 Neutrophils # 7.5 K/mcL (1.6-8.9) 04/09/18 06:06 Lymphocytes # 1.0 K/mcL (0.6-4.6) 04/09/18 06:06 Monocytes # 1.0 K/mcL (0.0-1.3) 04/09/18 06:06 Eosinophils # 0.1 K/mcL (0.0-0.6) 04/09/18 06:06 Basophils # 0.0 K/mcL (0.0-0.2) 04/09/18 06:06 Platelet Estimate Normal (Normal) 04/08/18 11:49 Immature Plt Fraction 4.8 % (1.1-6.1) 04/08/18 11:49 ESR 106 mm/hr (0-10) H 04/08/18 18:00 PT 12.8 Seconds (9.4-12.1) H 04/08/18 11:37 INR 1.2 04/08/18 11:37 APTT 27.9 Seconds (26.0-36.0) 04/08/18 11:37 Sodium 130 mEq/L (136-145) L 04/09/18 06:06 Potassium 3.5 mEq/L (3.5-5.1) 04/09/18 06:06 Chloride 100 mEq/L (98-107) 04/09/18 06:06 Carbon Dioxide 21 mEq/L (23-29) L 04/09/18 06:06 BUN 15 mg/dL (6-20) 04/09/18 06:06 Creatinine 1.34 mg/dL (0.70-1.30) H 04/09/18 06:06 Est GFR ( Amer) > 60 (> 60) 04/09/18 06:06 Est GFR (Non-Af Amer) 57 (> 60) L 04/09/18 06:06 BUN/Creatinine Ratio 11 (6-26) 04/09/18 06:06 Glucose 239 mg/dL (70-105) H 04/09/18 06:06 POC Glucose 201 mg/dL (70-99) H 04/09/18 16:11 Est Mean Plasma Glucose 223 mg/dl 04/09/18 06:56 Hemoglobin A1c 9.4 % (-5.6) H 04/09/18 06:56 Calculated Osmolality 279 (280-300) L 04/09/18 06:06 Lactic Acid 1.7 mmol/L (0.5-2.2) 04/08/18 12:08 Calcium 8.4 mg/dL (8.6-10.3) L 04/09/18 06:06 Phosphorus 1.8 mg/dL (2.7-4.5) L 04/08/18 11:37 Magnesium 1.6 mg/dL (1.6-2.6) 04/09/18 06:06 C-Reactive Protein > 300 mg/L (Less than 10) H 04/08/18 18:00 Impressions Foot X-Ray 04/08/18 11:39 IMPRESSION: Persistent soft tissue swelling with areas of increased lucency most significant in the lateral aspect suspicious for infection with a possible underlying abscess. Fixation screws in the lateral distal aspect of the calcaneus appear to be displaced when compared to the prior exams with probable fracture of the 2nd most distal screw. There are also increased erosive changes of the lateral aspects of the navicularis and talus on the oblique view. Findings are suspicious for osteomyelitis. D/ / 04/08/2018 12:41:16 Rayne Steinberg MD / lars Interpreting Provider: Rayne Steinberg MD Anesthesia Exam Vital Signs Temp Pulse Resp BP Pulse Ox 04/09/18 16:15 101.5 F H 80 20 138/76 91 04/09/18 11:40 97.8 F 85 18 132/72 93 04/09/18 08:30 91 04/09/18 06:45 99.3 F 101 20 117/71 91 04/09/18 05:19 98.7 F 95 20 133/72 90 04/08/18 22:28 18 94 04/08/18 20:08 98.8 F 91 18 134/74 96 Intake and Output 04/09/18 04/09/18 04/09/18 07:59 15:59 23:59 Intake Total 1600 / 1600 340 / 340 Output Total 0 / 0 Balance 1600 / 1600 340 / 340 Intake: IV Fluids 1600 / 1600 100 / 100 0.9 % Sodium Chloride 1,000 ML 1000 / 1000 @ 100 mls/hr IVC .Q10H NITZA Rx#: [id number] Zosyn 3.375 GM In 0.9 % Sodium 100 / 100 100 / 100 Chloride (Mini-Bag +) 100 ML @ 25 mls/hr IVPB Q8H NITZA Rx#: [id number] Vancocin 2,000 MG In 0.9 % 500 / 500 Sodium Chloride 500 ML @ 250 mls/hr IVPB Q12H NITZA Rx#: [id number] Oral 0 / 0 240 / 240 Output: Urine 0 / 0 Other: Meal NPO Percent of Meal Consumed 100% Weight 179.1 kg Blood Glucose* 233 279 201 Patient Weight 04/09/18 23:59 Weight 179.1 kg Height: 6' Weight: 394# BMi = 54 - HEENT Pupil (Motor): Pupils equal, EOMI Mallampati: II Teeth: Normal Oral Opening: Greater than 3 - MANAGER PARKING LOC: Oriented MANAGER PARKING Motor: Normal RUE, Normal LUE, Normal RLE, Normal LLE, Normal Face MANAGER PARKING Sensory: Normal: RUE, LUE, RLE, LLE, Face - Cardiac Rhythm: Regular Murmur: None - Pulmonary Breath Sounds: bilateral Clear Respiratory Effort: Symmetrical Anesthesia Assess/Plan ASA Score: 4 (Super MO, HTN, Chol, DM, Anxiety/Depression) Modified Cambria Scale for Level of Consciousness: Cooperative, oriented, and tranquil Anesthetic Plan: General Monitoring Plan: Standard Monitors Recovery Plan: PACU Anes Supervising Prov Stmt: PT seen/evaluated, R&B discussed, questions answered and consent obtained. - MD Chu <Artem Prather - Last Filed: 04/10/18 01:44> Date of Encounter: 04/10/18 - Past History Cardiac History: HTN, Other (PVD) Pulmonary History: Former smoker MANAGER PARKING History: Other (Anxiety/Depression, Diabetic Neuropathy) Other Medical History: Renal, Diabetes Type II, Other Anesthesia History: Past Anesthesia Alcohol Use: none Drug use: none - Meds/Allergy Pre-op Review Medications Reviewed: Yes Allergies Reviewed: Yes Beta Blockers on Current Med List: Yes Anesthesia Results - Labs 04/09/18 06:06 04/09/18 06:06 Anesthesia Exam - Cardiac Murmur: None JVD: No Carotid Bruit: No - Pulmonary Breath Sounds: bilateral Clear Respiratory Effort: Symmetrical Anesthesia Assess/Plan ASA Score: 4 Modified Danny Scale for Level of Consciousness: Cooperative, oriented, and tranquil Anesthetic Plan: MAC Monitoring Plan: Standard Monitors Recovery Plan: PACU (Discussed MAC, possible GA, agrees to proceed)
[2018-04-09] MEDS ORDERED: Famotidine 20 MG/2 ML VIAL ONE (21:49)
[2018-04-09] MEDS ORDERED: Metoclopramide 10 MG/2 ML VIAL ONE (21:49)
[2018-04-09] MEDS ORDERED: Lidocaine -MPF 2% 2 ML VIAL ONE (21:50)
[2018-04-09] MEDS ORDERED: Propofol 500 MG/50 ML INFUS..BTL ONE (21:50)
[2018-04-09] MEDS ORDERED: *HR* FentaNYL (PF) 100 MCG/2 ML VIAL ONE ×2 (21:51→23:50)
[2018-04-09] MEDS ORDERED: *HR* Midazolam HCl 2 MG/2 ML VIAL ONE (22:21)
[2018-04-10] MEDS ORDERED: Lidocaine 1% 20 ML MDV ONE (00:05)
--- NOTE | 2018-04-10 00:32 | Operative Note ---
Date of procedure: 04/10/18 Pre-op diagnosis: abscess right foot/ankle, osteomyelitis Post-op diagnosis: same Procedure: incision and drainage of right ankle/foot removal of right ankle/foot hardware bone biopsy talus bone biopsy navicular Implants: none Complications: none Anesthesia: MAC Local Anesthetics: 1% Lidocaine HCL SubQ (cc) Surgeon: Russell Mercer Was there an administrative library assistant present: No Estimated blood loss (cc): 250 Specimen: right wound culture, pathology-bone talus and navicular Condition: stable Disposition: PACU Procedure in Detail: Indications: 47-year-old diabetic male previous history of Charcot came to the hospital with reported fever and purulent drainage and concern for abscess from the plantar lateral aspect of the right foot where a wound was present measuring approximately [id number]. Xray was conerning for osteomyelitis of the talus and navicular. The wound did not probe to bone or hardware. Nature of the above procedures, risks versus benefits potential complications and consequences of surgery and his condition were discussed at length. Discussed with patient that he is high risk for limb loss and no guarantees were made that his limb could be salvaged and that he would not end up with an above or below knee amputation. It was explained to him that this is a staged procedure and he would need more surgery in the future. All of his questions were answered and the informed consent was signed and the patient was taken from preoperative holding area and operating room placed on the operating room table in the supine position on the Tourniquet was applied and inflated to 250 mmHg. 15 mL of 1% lidocaine plain was injected into the patient's right lower extremity. The following procedures then began. Incision and drainage of right foot/ankle. Attention was directed to the lateral aspect of the patient's right foot and ankle were #15 blade was used to make an incision starting at the plantar lateral ulceration extending proximally along the lateral aspect of the ankle. There was purulent drainage expressed from the plantar lateral aspect of the foot and furthermore one area on the lateral ankle which was overlying the hardware from previous surgery. Cultures were taken of the purulent drainage and sent to the lab for aerobic, anaerobic and Gram stain. Areas were probed and explored. Nonviable tissue was excised from the site. An incision was also made along the medial aspect of the foot and ankle and the subcutaneous tissues were probed and explored no purulence was expressed.The decision was made to remove the hardware as some of it was unstable, broken and there was infection in the area. Removal of hardware right foot/ankle. Attention was directed deep where the freer elevator was used to remove soft tissue covering the screw heads and the plate on the lateral aspect of the foot and ankle. Proximal screws and the ankle were removed followed by the 2 screws in the talus and the screws and the calcaneus. The broken screw in the calcaneus was retrieved. The 6.5 mm beam screw traversing the tibiotalar joint was also removed as were the 4.5 mm beams from the lateral column. There was no purulence expressed from the tibiotalar area. There was some purulent drainage from the subtalar area. The pulse lavage with 3000 units of normal sterile saline with 3 g of bacitracin was utilized to thoroughly flushed the hindfoot and ankle. Upon reinspection no further purulence was visualized or able to be expressed. Devitalized tissue was felt to have been adequately resected. Adequate hemostasis was also present and the tourniquet was deflated. The site was deemed adequate for partial closure and 0 Prolene was utilized to partially close the lateral incision and 1 inch iodoform packing was used to pack the sites. Some Surgicel and Gelfoam were also packed into the lateral aspect of the right ankle/foot. Bone biopsy of navicular and talus. C-arm was utilized to confirm the location of the Jamshidi needle and bone biopsy specimens were taken from both the navicular and talus and sent to pathology. Postoperative bandaging included 4 x 4 gauze, abdominal pads, Kerlix and an adequately padded posterior splint. Strict instructions for nonweightbearing were given. The patient tolerated the anesthesia and the procedure well. He was escorted the recovery room with vital signs stable and vascular status intact to the right foot noted by instant capillary refill time to all digits of the right foot. He will return to the floor where he will continue IV antibiotics.
[2018-04-10] MEDS ORDERED: Ondansetron 4 MG/2 ML VIAL IVP PRN (01:11)
[2018-04-10] MEDS ORDERED: *HR* Dextrose 50 % in Water (Syg) 50 ML SYRINGE IVP PRN (01:11)
[2018-04-10] MEDS ORDERED: Loratadine 10 MG TABLET PO PRN (01:11)
[2018-04-10] MEDS ORDERED: Dextrose Gel 15 GM/37.5 ML TUBE PO PRN ×2 (01:11)
[2018-04-10] MEDS ORDERED: Naloxone 0.4 MG/ML INJ IVP PRN (01:11)
[2018-04-10] MEDS ORDERED: D5% in Water 1,000 ML IVC PRN (01:11)
--- NOTE | 2018-04-10 01:42 | Anesthesia Evaluation Post Op ---
Date of Encounter: 04/10/18 Time of Encounter: 01:00 - Vital Signs Vital Signs: Vital Signs/O2 Sat/Glucose, Most Current Temp Pulse Resp BP Pulse Ox 04/10/18 00:55 97.3 F L 114 20 109/80 100 04/10/18 00:45 112 18 104/86 100 04/10/18 00:35 103 20 122/88 97 04/10/18 00:25 98.0 F 100 16 109/76 95 - Lungs Lungs: Clear Ascult./Percussion - Airway Airway: Non-obstructed - Cardiovascular Regular Rate - Mental Status Mental Status: Alert & Oriented, Answers Appropriately - Pain Pain Scale: 0 - Nausea Vomiting Nausea Vomiting: Not Present - Hydration Hydration: Ice chips - Discharge PostOp Status: Transfer Patient to floor
[2018-04-10] MEDS: Insulin LISPRO 300 UNITS/3 ML VIAL SQ SCH ×4 (01:52→23:09)
[2018-04-10] MEDS: *HR* Heparin 5,000 UNIT/ML VIAL SQ SCH ×4 (01:52→23:08)
[2018-04-10] MEDS: Piperacillin/Tazobactam 3.375 GM in 0.9 % Sodium Chloride Mini Bag 100 ML IVPB SCH ×3 (05:51→23:11)
[2018-04-10] MEDS ORDERED: Insulin LISPRO 300 UNITS/3 ML VIAL SQ SCH (06:00)
--- NOTE | 2018-04-10 07:07 | Electrocardiograph Report ---
[address] [place] [address] Test Date: 2018-04-08 Pat Name: Jhoan Bowen Department: 103 Room: 3A42 Gender: M Crotch Breaker: TMR : [id number] Requested By: Giovana Garcia Order Number: [id number] Reading MD: Naseem Mullen Measurements Intervals [place] Rate: 76 P: 39 TN: 159 QRS: 29 QRSD: 109 T: 24 QT: 353 QTc: 384 Interpretive Statements SINUS RHYTHM BASELINE ARTIFACT Electronically Signed On 04-10-2018 7:05:46 EDT by Naseem Mullen
[2018-04-10] MEDS ORDERED: Insulin DETEMIR 100 UNIT/ML X5UNITS SQ SCH (09:00)
[2018-04-10] MEDS ORDERED: Metoprolol XL (24 HR) Succ 50 MG TAB.ER.24H PO SCH (09:00)
[2018-04-10 09:06] LABS: Basophils % 0.7 %; Eosinophils % 0.8 %; Hematocrit 31.7 % (37.5-50.1); Immature Granulocytes % 4.7 % (0-4); Lymphocytes % 12.1 %; Mean Corpuscular HGB Conc 32.5 g/dL (31.6-35.5); Mean Corpuscular Hemoglobin 28.3 pg (28.0-33.3); Mean Corpuscular Volume 87.1 fL (83.0-100.0); Mean Platelet Volume 10.5 fL (9.4-12.4); Monocytes % 11.7 %; Platelet Count 233 K/mcL (140-400); Red Blood Count 3.64 M/mcL (4.19-5.50); Red Cell Distribution Width 14.5 % (11.5-14.5)
[2018-04-10 09:07] LABS: Basophils # 0.1 K/mcL (0.0-0.2); Eosinophils # 0.1 K/mcL (0.0-0.6); Lymphocytes # 1.3 K/mcL (0.6-4.6); Monocytes # 1.2 K/mcL (0.0-1.3); Neutrophils # 7.4 K/mcL (1.6-8.9); Nucleated Red Blood Cells 0.3 /100 WBC (0)
[2018-04-10] MEDS: Gabapentin 400 MG CAPSULE PO SCH ×3 (09:07→23:10)
[2018-04-10] MEDS: Cyanocobalamin (B-12) 1,000 MCG TABLET PO SCH (09:07)
[2018-04-10] MEDS: ARIPiprazole 10 MG TABLET PO SCH (09:07)
[2018-04-10 09:08] LABS: Hemoglobin 10.3 g/dL (12.9-16.9)
[2018-04-10] MEDS: traMADol 50 MG TABLET PO PRN ×2 (09:13→23:44)
[2018-04-10] MEDS ORDERED: Aminoglycoside Consult 1 EACH MC ONE (09:17)
[2018-04-10 09:24] LABS: Platelet Estimate Normal (Normal)
[2018-04-10 09:25] LABS: Calcium 8.1 mg/dL (8.6-10.3); Potassium 4.1 mEq/L (3.5-5.1)
--- NOTE | 2018-04-10 13:57 | Infectious Disease Progress No ---
Date of Encounter: 04/10/18 Time of Encounter: 13:55 - Assessment and Plan (1) Sepsis Current Visit: Yes Status: Acute The patient had two SIRS criteria on admission. Likely secondary to right foot infection and OM. Improved. Febrile post-op. WBC has normalized. Blood cultures drawn 04/08/18 are NGTD x 2 sets. Qualifiers: Sepsis type: sepsis due to unspecified organism Qualified Code(s): A41.9 - Sepsis, unspecified organism (2) Osteomyelitis Current Visit: Yes Status: Acute Causative organism: GCS per wound culture, but concern for polymicrobial infection. Location: Right foot talus and navicularis. Likely secondary to right foot DFU. X-ray of the right foot completed 04/08/18 showed bony erosion of the talus and navicularis. ESR 106, CRP >300. Podiatry consulted and following. Dad is post I&D of the right ankle/foot, removal of hardware, and bone biopsy. Operative note was reviewed. Purulence noted Intra-Op adjacent to the hardware. Intraoperative cultures were obtained and are pending. Pathology pending. Wound care and activity restrictions as outline by the podiatry team. Hold Vanc for now given YESENIA. Will re-start if MRSA isolated on cultures. Continue Zosyn 3.375 grams IV Q8H. Duration of treatment depends on the clinical picture, but likely 6 weeks of IV antibiotics. De-escalate based on cultures. Monitor renal function and for drug toxicity and dose-adjust antibiotics. Consult VAT prior to discharge once final antibiotic regimen determined. Further recommendations for weekly labs, ID follow-up, and OPAT orders to follow pending additional cultures and labs. Qualifiers: Osteomyelitis type: other acute Osteomyelitis location: foot Laterality: right Qualified Code(s): M86.171 - Other acute osteomyelitis, right ankle and foot (3) Abscess of right foot Current Visit: Yes Status: Acute Location: Right foot. Causative organism: GCS, but possibly polymicrobial. Additional cultures pending. Status post I & D 04/09/[address] Mercer. Antibiotics as above for now. (4) YESENIA (acute kidney injury) Current Visit: Yes Status: Acute YESENIA on CKD. Serum creatinine up to 2.48 today. Etiology unclear. Continue to trend. Will hold Vanc for now unless MRSA is isolated on cultures. Avoid additional nephrotoxins. Dose-adjust antibiotics as needed. (5) Diabetic foot ulcer Current Visit: Yes Status: Acute Etiology unclear. Podiatry consulted and following. Qualifiers: Diabetic foot ulcer location: heel Diabetes mellitus type: type 2 Laterality: right Non-pressure ulcer stage: unspecified non-pressure ulcer stage Qualified Code(s): E11.621 - Type 2 diabetes mellitus with foot ulcer; L97.419 - Non-pressure chronic ulcer of right heel and midfoot with unspecified severity (6) Charcot foot due to diabetes mellitus Current Visit: No Status: Acute Status post reconstruction 10/[address] Mercer. (7) HTN (hypertension) Current Visit: No Status: Chronic Qualifiers: Hypertension type: essential hypertension Qualified Code(s): I10 - Essential (primary) hypertension (8) DM2 (diabetes mellitus, type 2) Current Visit: No Status: Acute Uncontrolled. HgbA1C 9.4%. Recommend aggressive glucose monitoring and control to promote wound healing and prevent re-infection. Management per the primary team. Qualifiers: Diabetes mellitus oil heaterman insulin use: with oil heaterman use Diabetes mellitus complication detail: without coma Qualified Code(s): E11.00 - Type 2 diabetes mellitus with hyperosmolarity without nonketotic hyperglycemic- hyperosmolar coma (NKHHC); Z79.4 - correction (current) use of insulin (9) NEHEMIAH (obstructive sleep apnea) Current Visit: No Status: Acute (10) Morbid obesity with BMI of 50.0-59.9, adult Current Visit: No Status: Acute (11) CKD (chronic kidney disease) Current Visit: No Status: Chronic Serum creatinine up to 2.48 today --> YESENIA. Monitor renal function closely. Dose-adjust antibiotics. Avoid nephrotoxins as able. Qualifiers: Chronic kidney disease stage: stage 2 (mild) Qualified Code(s): N18.2 - Chronic kidney disease, stage 2 (mild) - Subjective Interval history: Since seeing examined. No acute events noted overnight. Status post D of the right ankle with removal of hardware and bone biopsy last night. Cultures and pathology are pending. The patient did have a postop fever with a MAXIMUM TEMPERATURE of 101.5 and was tachycardic postop, but these are resolved. He states overall he feels okay. Denies chills or rigors associated with the fever , but did state that he was profusely diaphoretic. He denies chest pain, shortness of breath, or cough. Denies nausea, vomiting, diarrhea, or constipation. Denies abdominal pain, urinary complaints, or appetite changes. Denies oral thrush or skin lesions. Denies pain at surgical site. Infect Dis PN-Objective Data - Labs CBC & Chem 7: 04/10/18 08:54 04/10/18 08:54 Labs: Laboratory Results - last 24 hr 04/09/18 04/09/18 04/09/18 06:56 16:11 20:50 WBC RBC Hgb Hct MCV MCH MCHC RDW Plt Count MPV Immature Gran % Seg Neutrophils % Lymphocytes % Monocytes % Eosinophils % Basophils % Neutrophils # Lymphocytes # Monocytes # Eosinophils # Basophils # Nucleated RBCs/100 WBC Platelet Estimate Sodium Potassium Chloride Carbon Dioxide BUN Creatinine Est GFR ( Amer) Est GFR (Non-Af Amer) BUN/Creatinine Ratio Glucose POC Glucose 201 H 127 H Est Mean Plasma Glucose 223 Hemoglobin A1c 9.4 H Calculated Osmolality Calcium Vancomycin Trough 04/10/18 04/10/18 04/10/18 01:38 05:32 08:54 WBC 10.5 RBC 3.64 L Hgb 10.3 L D Hct 31.7 L MCV 87.1 MCH 28.3 MCHC 32.5 RDW 14.5 Plt Count 233 MPV 10.5 Immature Gran % 4.7 H Seg Neutrophils % 70.0 Lymphocytes % 12.1 Monocytes % 11.7 Eosinophils % 0.8 Basophils % 0.7 Neutrophils # 7.4 Lymphocytes # 1.3 Monocytes # 1.2 Eosinophils # 0.1 Basophils # 0.1 Nucleated RBCs/100 WBC 0.3 H Platelet Estimate Normal Sodium Potassium Chloride Carbon Dioxide BUN Creatinine Est GFR ( Amer) Est GFR (Non-Af Amer) BUN/Creatinine Ratio Glucose POC Glucose 334 H Est Mean Plasma Glucose Hemoglobin A1c Calculated Osmolality Calcium Vancomycin Trough 20 H 04/10/18 04/10/18 04/10/18 08:54 11:54 12:44 WBC RBC Hgb Hct MCV MCH MCHC RDW Plt Count MPV Immature Gran % Seg Neutrophils % Lymphocytes % Monocytes % Eosinophils % Basophils % Neutrophils # Lymphocytes # Monocytes # Eosinophils # Basophils # Nucleated RBCs/100 WBC Platelet Estimate Sodium 128 L Potassium 4.1 Chloride 100 Carbon Dioxide 16 L BUN 22 H Creatinine 2.48 H Est GFR ( Amer) 34 L Est GFR (Non-Af Amer) 28 L BUN/Creatinine Ratio 9 Glucose 295 H POC Glucose 297 H Est Mean Plasma Glucose Hemoglobin A1c Calculated Osmolality 280 Calcium 8.1 L Vancomycin Trough 30 H Cultures: Cultures 04/08/18 14:48 Blood Culture - Preliminary Peripheral Venipuncture No growth. - Impressions Impressions Ankle X-Ray 04/10/18 00:50 IMPRESSION: Interval removal of the hardware from the hindfoot and ankle. 6 mm screw fragment remains in the lateral hindfoot soft tissues. Suspected partial bony resection of the cuboid and proximal 5th metatarsal. D/ : / 04/10/2018 07:28:08 Josh Rivera MD / jhonny Interpreting Provider: Josh Rivera MD Foot X-Ray 04/10/18 00:50 IMPRESSION: Interval removal of the hardware from the hindfoot and ankle. 6 mm screw fragment remains in the lateral hindfoot soft tissues. Suspected partial bony resection of the cuboid and proximal 5th metatarsal. D/ : / 04/10/2018 07:28:08 Josh Rivera MD / jhonny Interpreting Provider: Josh Rivera MD Exam - Constitutional Vitals: Temp Pulse Resp BP Pulse Ox 99 F 65 20 85/54 92 04/10/18 11:55 04/10/18 11:55 04/10/18 11:55 04/10/18 11:55 04/10/18 11:55 General appearance: cooperative, morbidly obese, no acute distress - Head Head exam: Present: atraumatic, normal inspection, normocephalic - Eye Eye exam: Present: EOMI, normal appearance, PERRL Pupils: Present: normal accommodation - ENT ENT exam: Present: mucous membranes moist - Neck Neck exam: Present: normal inspection - Respiratory Respiratory exam: Present: CTAB. Absent: rales, respiratory distress, rhonchi, wheezes - Cardiovascular Cardiovascular exam: Present: RRR, +S1, +S2 - GI/Abdominal GI/Abdominal exam: Present: distended (obese), normal bowel sounds, soft. Absent: tenderness - Extremities Exam Additional comments: Right foot post-op cast and dressing C/D/I. - Neurological Exam Neurological exam: Present: alert, oriented X3, no focal deficits - Psychiatric Psychiatric exam: Present: normal affect, normal mood - Skin Skin exam: Present: dry, intact, normal color, warm Consult Discharge Plan - Plan Referrals: Dolly Garcia, FILLING MIXER [Primary Care Provider] - - Attending Attestation I examined this patient and my medical decision-making was reviewed with the Resident Physician. I agree with the documented findings, disposition and treatment plan as described except to the extent set forth below.
[2018-04-10] MEDS ORDERED: 0.9 % Sodium Chloride 1,000 ML IVC SCH (14:00)
[2018-04-10] MEDS: Acetaminophen 325 MG TABLET PO PRN (14:20)
--- NOTE | 2018-04-10 15:10 | Internal Med Progress Note ---
Date of Encounter: 04/10/18 Time of Encounter: 10:00 - Assessment and plan (1) Diabetic foot ulcer Current Visit: Yes Status: Acute Assessment and plan: 47 male with diabetes and diabetic arthropathy, and multiple right foot revision by padding gluer, most recent one in October 2017, presented with right foot foot and a bloody drainage, associated with fever, x-ray right foot showed swelling soft tissue, possible abscess, possible underlying osteomyelitis, displaced heart well, and a possible broken screw. Steam Bone Press Tender was consulted, plan was to take the patient to OR for washout and readjust hardware. Hospitalist will continue manage the infection. - Blood culture, wound culture sent, patient received Zosyn and vancomycin at the ED. - Continue antibiotics, consult ID tomorrow. - Podiatry following. 04/09: Day #2 Zosyn/Vancomycin. I&D this afternoon 04/10: Postop day 1. Awaiting cultures. Vancomycin is stopped for now. We restarted if MRSA grows out. Patient is day #3 IV Zosyn. Anticipate he will need 6 weeks of IV antibiotics, as indicated by infectious disease note. Will need a PICC line at discharge, will consult VAT prior to that time (2) Osteomyelitis Current Visit: Yes Status: Acute Assessment and plan: X-ray of right foot revealed possible osteomyelitis, patient received Zosyn and vancomycin at ED, cultures sent, will continue current antibiotics, will consult ID tomorrow. 04/09: Await I&D, abx as described above 04/10: As discussed above. (3) HTN (hypertension) Current Visit: No Status: Chronic Assessment and plan: BP controlled, continue home medication. 04/10: Blood pressure on the left side. Beta charmaine held. IV fluids given. Monitor. (4) DM2 (diabetes mellitus, type 2) Current Visit: No Status: Acute Assessment and plan: Poorly controlled diabetes, continue home dose of long-acting insulin, decrease the dose of bolus insulin before each meal, started patient on insulin sliding scale. 04/09: Blood sugars are elevated today. As to further adjust just yet given the fact that he is nothing by mouth for surgery. We will continue to monitor. 04/10: Levemir increased for elevated blood sugars.. Continue sliding scale. Monitor (5) CKD (chronic kidney disease) Current Visit: No Status: Chronic Assessment and plan: Creatinine at the baseline, continue monitoring. Continue IV fluid. Avoid nephrotoxins as best able 04/10: Now with acute kidney injury. Avoid nephrotoxins. Vancomycin is held. Continue IV fluids. Recheck BMP in the morning. (6) Hyponatremia syndrome Current Visit: Yes Status: Acute Assessment and plan: Unknown etiology, continue IV fluid, repeat BMP in a.m. 04/09: Patient's hyponatremia is secondary to hypernatremia, " pseudohyponatremia " May also be a component of hypovolemic hyponatremia. Monitor. Sodium is improving. 04/10: Sodium 128 today. Not particularly changed from yesterday. Continue to monitor. (7) Sepsis Current Visit: Yes Status: Acute Assessment and plan: Patient had a fever, WBC elevated, likely infection of her right foot. Blood culture and wound culture sent. Lactic acid is normal. Continue IV fluid. Continue current antibiotics. ID consult tomorrow. 04/09: Sepsis resolving 04/10: Patient was mildly hypotensive today. IV fluids were given. He has improved. We will continue to monitor. He is status post IND. White blood cell count is now normal. (8) Hypomagnesemia Current Visit: Yes Status: Acute Assessment and plan: Replaced, check magnesium in a.m. 04/09: Improved (9) NEHEMIAH (obstructive sleep apnea) Current Visit: No Status: Acute Assessment and plan: On CPAP, compliant in hospital - Time Spent With Patient Total time spent is greater than 50% in coordination of care (as documented) at patient's floor/unit and/or counseling patient: 25 - 35 minutes - Subjective Interval history: Chief complaint right foot pain HPI: A 47-year-old male with a history of morbid obesity, sleep apnea on CPAP type 2 diabetes mellitus insulin requiring, hypertension, hyperlipidemia, chronic easy stage III, and right Charcot foot. Patient was admitted on April 08 with a complaint of right foot pain, ulcer and bleeding. pt had a blister initially at his Right foot lateral border of the heel, which ruptured and subsequently head bleeding and pus drainage. Patient presented to the emergency room where he was diagnosed with right foot infection with associated heel abscess for which he is planned to undergo I&D today. A she has been seen by both podiatry and infectious disease. Patient did have x-rays of his right foot which showed erosions at the talus and navicularis. Concerning for osteomyelitis. Sedimentation rate was 106, CRP was greater than 300. She is currently day #2 of IV antibiotics, currently Zosyn and vancomycin. Altered data is pending. Pt's other medical issues presently are stable. He is awaiting Podiatric Surgery today. She is denying any fevers or chills. No chest pain or shortness of breath. No nausea, vomiting, diarrhea. 04/10: Postop day #1 incision and drainage of right ankle and foot with removal of hardware, and biopsies taken of talus and navicular bone. Cultures pending. Os operative course has been complicated by low blood pressures late morning. His Lopressor was held. He was given fluids. Blood pressure has improved as of this time 2/90 systolic. Patient states he is feeling well. Denies any chest pain or shortness of breath. No nausea, vomiting, diarrhea. No fevers or chills. She also noted to have acute kidney injury now with a creatinine of 2.48, with his level on admission being 1.34. - Constitutional Vitals: Temp Pulse Resp BP Pulse Ox 99 F 65 20 85/54 92 04/10/18 11:55 04/10/18 11:55 04/10/18 11:55 04/10/18 11:55 04/10/18 11:55 General appearance: Present: A&O X 3, morbidly obese, no acute distress - Head Head exam: Present: atraumatic, normocephalic - Eye Eye exam: Present: PERRL, conjuntiva pink, sclera anicteric Pupils: Present: PERRL - Neck Neck exam general surgery: Present: supple, trachea midline. Absent: lymphadenopathy - Respiratory Respiratory exam: Present: CTAB. Absent: accessory muscle use, rales, rhonchi, wheezes - Cardiovascular Cardiovascular exam: Present: RRR, +S1, +S2. Absent: diastolic murmur, gallop, rubs, systolic murmur - GI/Abdominal GI/Abdominal exam: Present: normal bowel sounds, soft, no peritoneal signs. Absent: distended, tenderness - Extremities Exam Extremities exam: Present: warm, radial pulses palpable and symmetrical. Absent : calf tenderness, cyanotic, pedal edema Additional comments: Right foot is dressed - Neurological Exam Neurological exam: Present: CN II-XII intact, oriented X3, no focal deficits. Absent: pronater drift, facial droop, speech deficit - Skin Skin exam: Present: dry, intact Internal Medicine: Result - Labs CBC & Chem 7: 04/10/18 08:54 04/10/18 08:54 Labs: Short CBC 04/10/18 Range/Units 08:54 WBC 10.5 (4.3-11.1) K/mcL Hgb 10.3 L D (12.9-16.9) g/dL Hct 31.7 L (37.5-50.1) % Plt Count 233 (140-400) K/mcL Neutrophils # 7.4 (1.6-8.9) K/mcL BMP 04/10/18 08:54 Sodium 128 L Potassium 4.1 Chloride 100 Carbon Dioxide 16 L BUN 22 H Creatinine 2.48 H Glucose 295 H Calcium 8.1 L - ABG Interpretation ABG results: PT/INR, D-dimer PT 12.8 Seconds (9.4-12.1) H 04/08/18 11:37 - Impressions Impressions Ankle X-Ray 04/10/18 00:50 IMPRESSION: Interval removal of the hardware from the hindfoot and ankle. 6 mm screw fragment remains in the lateral hindfoot soft tissues. Suspected partial bony resection of the cuboid and proximal 5th metatarsal. D/ : / 04/10/2018 07:28:08 Josh Rivera MD / jhonny Interpreting Provider: Josh Rivera MD Foot X-Ray 04/10/18 00:50 IMPRESSION: Interval removal of the hardware from the hindfoot and ankle. 6 mm screw fragment remains in the lateral hindfoot soft tissues. Suspected partial bony resection of the cuboid and proximal 5th metatarsal. D/ : / 04/10/2018 07:28:08 Josh Rivera MD / jhonny Interpreting Provider: Josh Rivera MD Consult Discharge Plan - Plan Referrals: Dolly Garcia, WATER VALVE REPAIRER [Primary Care Provider] -
--- NOTE | 2018-04-10 16:45 | Podiatry Progress Note ---
Date of Encounter: 04/10/18 Time of Encounter: 12:00 - Assessment and Plan (1) Osteomyelitis Current Visit: Yes Status: Acute s/p incision and drainage of right ankle/foot, removal of right ankle/foot hardware, bone biopsy talus, bone biopsy navicular per on 04/09/18 Dressing removed at bedside Flushed with saline Repacked Bulk dressing and posterior splint reapplied To remain NWB Dr. Mercer plans to return patient to OR tomorrow NPO after midnight Continue IV antibiotics Await intra op cultures Qualifiers: Osteomyelitis type: other acute Osteomyelitis location: foot Laterality: right Qualified Code(s): M86.171 - Other acute osteomyelitis, right ankle and foot (2) Charcot foot due to diabetes mellitus Current Visit: No Status: Acute Subjective Interval history: Mr. Bowen is a 47 year old diabetic male with previous surgery for his right foot/ankle charcot. He developed infection of the right foot and underwent incision and drainage of right ankle/foot, removal of right ankle/foot hardware , bone biopsy talus, bone biopsy navicular per on 04/09/18 Patient resting comfortably in bed at this time. Denies any pain. Posterior splint and dressing intact. Patient denies any fevers, chills, n/v or flu like symptoms. Objective - Vital Signs Vital Signs: Vital Signs Temp Pulse Resp BP Pulse Ox 04/10/18 11:55 99 F 65 20 85/54 92 04/10/18 05:58 97.7 F 80 17 121/70 96 04/10/18 03:34 97.3 F L 76 18 111/76 95 04/10/18 02:19 98.3 F 97 18 103/65 94 04/10/18 01:39 98.0 F 109 17 116/79 97 04/10/18 00:55 97.3 F L 114 20 109/80 100 04/10/18 00:45 112 18 104/86 100 04/10/18 00:35 103 20 122/88 97 04/10/18 00:25 98.0 F 100 16 109/76 95 04/09/18 19:18 99.6 F 73 18 121/75 91 Intake and Output 04/10/18 04/10/18 04/10/18 07:59 15:59 23:59 Intake Total 250 / 250 100 / 100 Output Total 250 / 250 0 / 0 Balance 0 / 0 100 / 100 Intake: IV Fluids 250 / 250 100 / 100 Zosyn 3.375 GM In 0.9 % Sodium 100 / 100 Chloride (Mini-Bag +) 100 ML @ 25 mls/hr IVPB Q8H [facility] Rx#: [id number] Vancocin 1,500 MG In 0.9 % 250 / 250 Sodium Chloride 250 ML @ 125 mls/hr IVPB Q12H [facility]ZA Rx#: [id number] Output: Urine 0 / 0 Estimated Blood Loss 250 / 250 Other: Meal NPO Blood Glucose* 334 297 - Exam Exam: Podiatry General Exam: General appearance: alert awake oriented X 3. Calm and pleasant, no acute distress.. Vascular: Pedal pulses +2/4 DP/PT , No evidence of cyanosis, pallor or rubor, Edema graded at 1+/4, Skin Temperature warm, No calf pain with manual compression. capillary refill time is immediate to digits. Neurologic: insensate to light or moderate touch Postop Exam: S/P Sutures intact to incision lines, Large incision line to lateral aspect of right leg/ankle, open areas of incision line which were left for drainage are packed with mesalt, removed for assessment, mild amount of bloody drainage. Minimal surrounding edema or erythema. No odor. - Lab Result Diagrams: 04/12/18 08:56 04/12/18 08:56 Labs: Abnormal lab results RBC 3.64 M/mcL (4.19-5.50) L 04/10/18 08:54 Hgb 10.3 g/dL (12.9-16.9) L D 04/10/18 08:54 Hct 31.7 % (37.5-50.1) L 04/10/18 08:54 Immature Gran % 4.7 % (0-4) H 04/10/18 08:54 Band Neutrophils % 6.0 % (0-4) H 04/08/18 11:49 Nucleated RBCs/100 WBC 0.3 /100 WBC (0) H 04/10/18 08:54 ESR 106 mm/hr (0-10) H 04/08/18 18:00 PT 12.8 Seconds (9.4-12.1) H 04/08/18 11:37 Sodium 128 mEq/L (136-145) L 04/10/18 08:54 Carbon Dioxide 16 mEq/L (23-29) L 04/10/18 08:54 BUN 22 mg/dL (6-20) H 04/10/18 08:54 Creatinine 2.48 mg/dL (0.70-1.30) H 04/10/18 08:54 Est GFR ( Amer) 34 (> 60) L 04/10/18 08:54 Est GFR (Non-Af Amer) 28 (> 60) L 04/10/18 08:54 Glucose 295 mg/dL (70-105) H 04/10/18 08:54 POC Glucose 297 mg/dL (70-99) H 04/10/18 11:54 Hemoglobin A1c 9.4 % (-5.6) H 04/09/18 06:56 Calcium 8.1 mg/dL (8.6-10.3) L 04/10/18 08:54 Phosphorus 1.8 mg/dL (2.7-4.5) L 04/08/18 11:37 C-Reactive Protein > 300 mg/L (Less than 10) H 04/08/18 18:00 Vancomycin Trough 30 mcg/mL (5-10) H 04/10/18 12:44 Microbiology, Last 48 Hours 04/08/18 14:48 Blood Culture - Preliminary Peripheral Venipuncture No growth. Consult Discharge Plan - Plan Referrals: Dolly Garcia, WILMAN [Primary Care Provider] -
[2018-04-10] MEDS: 0.9 % Sodium Chloride 1,000 ML IVC SCH (17:59)
[2018-04-10] MEDS: Insulin DETEMIR 100 UNIT/ML X5UNITS SQ SCH (23:14)
[2018-04-11] MEDS: 0.9 % Sodium Chloride 1,000 ML IVC SCH ×2 (01:05→08:43)
[2018-04-11] MEDS: Piperacillin/Tazobactam 3.375 GM in 0.9 % Sodium Chloride Mini Bag 100 ML IVPB SCH ×2 (06:08→17:04)
[2018-04-11] MEDS: Insulin DETEMIR 100 UNIT/ML X5UNITS SQ SCH ×2 (08:44→21:10)
[2018-04-11] MEDS: Insulin LISPRO 300 UNITS/3 ML VIAL SQ SCH ×4 (08:44→21:12)
[2018-04-11] MEDS: Cyanocobalamin (B-12) 1,000 MCG TABLET PO SCH (08:45)
[2018-04-11] MEDS: *HR* Heparin 5,000 UNIT/ML VIAL SQ SCH ×3 (08:45→23:28)
[2018-04-11] MEDS: Gabapentin 400 MG CAPSULE PO SCH (08:45)
[2018-04-11] MEDS: ARIPiprazole 10 MG TABLET PO SCH (08:45)
[2018-04-11] MEDS: traMADol 50 MG TABLET PO PRN (08:51)
[2018-04-11 08:53] LABS: Hematocrit 26.6 % (37.5-50.1); Mean Corpuscular HGB Conc 33.8 g/dL (31.6-35.5); Mean Corpuscular Hemoglobin 28.8 pg (28.0-33.3); Mean Corpuscular Volume 85.3 fL (83.0-100.0); Mean Platelet Volume 10.2 fL (9.4-12.4); Nucleated Red Blood Cells 0.3 /100 WBC (0); Platelet Count 258 K/mcL (140-400); Red Blood Count 3.12 M/mcL (4.19-5.50); Red Cell Distribution Width 14.6 % (11.5-14.5)
[2018-04-11 09:08] LABS: Calcium 7.7 mg/dL (8.6-10.3); Potassium 3.9 mEq/L (3.5-5.1)
[2018-04-11 09:20] LABS: Eosinophils # 0.6 K/mcL (0.0-0.6); Lymphocytes # 1.3 K/mcL (0.6-4.6); Monocytes # 0.8 K/mcL (0.0-1.3); Neutrophils # 6.7 K/mcL (1.6-8.9); Platelet Estimate Normal (Normal)
[2018-04-11 09:33] LABS: Magnesium 1.7 mg/dL (1.6-2.6)
[2018-04-11] MEDS ORDERED: Albuterol 2.5 MG/3 ML NEBULIZER IH PRN (10:10)
[2018-04-11] MEDS ORDERED: Albuterol 2.5 MG/3 ML NEBULIZER IH ONE (10:12)
--- NOTE | 2018-04-11 10:37 | Infectious Disease Progress No ---
Date of Encounter: 04/11/18 Time of Encounter: 10:35 - Assessment and Plan (1) Sepsis Current Visit: Yes Status: Acute The patient had two SIRS criteria on admission. Likely secondary to right foot infection and OM. Improved. Afebrile. WBC normalized. Blood cultures drawn 04/08/18 are NGTD x 2 sets. Qualifiers: Sepsis type: sepsis due to unspecified organism Qualified Code(s): A41.9 - Sepsis, unspecified organism (2) Osteomyelitis Current Visit: Yes Status: Acute Causative organism: GCS per wound culture, but concern for polymicrobial infection. Location: Right foot talus and navicularis. Likely secondary to right foot DFU. X-ray of the right foot completed 04/08/18 showed bony erosion of the talus and navicularis. ESR 106, CRP >300. Podiatry consulted and following. Status post I&D of the right ankle/foot, removal of hardware, and bone biopsy. Operative note was reviewed. Purulence noted Intra-Op adjacent to the hardware. Intraoperative cultures are no growth so far. Pathology pending. Wound care and activity restrictions as outlined by the podiatry team. Hold Vanc for now given YESENIA. Will re-start if MRSA isolated on cultures. Continue Zosyn 3.375 grams IV, but decrease dose to Q12H for CrCl of 24. Duration of treatment depends on the clinical picture, but likely 6 weeks of IV antibiotics. De-escalate based on cultures. Monitor renal function and for drug toxicity and dose-adjust antibiotics. Consult VAT prior to discharge once final antibiotic regimen determined. Further recommendations for weekly labs, ID follow-up, and OPAT orders to follow pending additional cultures and labs. Qualifiers: Osteomyelitis type: other acute Osteomyelitis location: foot Laterality: right Qualified Code(s): M86.171 - Other acute osteomyelitis, right ankle and foot (3) Abscess of right foot Current Visit: Yes Status: Acute Location: Right foot. Causative organism: GCS, but possibly polymicrobial. Additional cultures pending. Status post I & D 04/09/[address] Mercer. Antibiotics as above for now. (4) YESENIA (acute kidney injury) Current Visit: Yes Status: Acute YESENIA on CKD. Serum creatinine up to 4 today with little urine output. Etiology unclear, but likely multifactorial: hypotension post-op, Vancomycin, dehydration Continue to trend. Will hold Vanc for now unless MRSA is isolated on cultures. Consider nephrology to evaluate. Avoid additional nephrotoxins. Dose-adjust antibiotics as needed. (5) Diabetic foot ulcer Current Visit: Yes Status: Acute Etiology unclear. Podiatry consulted and following. Qualifiers: Diabetic foot ulcer location: heel Diabetes mellitus type: type 2 Laterality: right Non-pressure ulcer stage: unspecified non-pressure ulcer stage Qualified Code(s): E11.621 - Type 2 diabetes mellitus with foot ulcer; L97.419 - Non-pressure chronic ulcer of right heel and midfoot with unspecified severity (6) Charcot foot due to diabetes mellitus Current Visit: No Status: Acute Status post reconstruction 10/[address] Mercer. (7) HTN (hypertension) Current Visit: No Status: Chronic Qualifiers: Hypertension type: essential hypertension Qualified Code(s): I10 - Essential (primary) hypertension (8) NEHEMIAH (obstructive sleep apnea) Current Visit: No Status: Acute (9) Morbid obesity with BMI of 50.0-59.9, adult Current Visit: No Status: Acute (10) CKD (chronic kidney disease) Current Visit: No Status: Chronic Monitor renal function closely. Dose-adjust antibiotics. Avoid nephrotoxins as able. Qualifiers: Chronic kidney disease stage: stage 2 (mild) Qualified Code(s): N18.2 - Chronic kidney disease, stage 2 (mild) - Subjective Interval history: Patient seen and examined. No acute events noted overnight. Status post I & D of the right ankle with removal of hardware and bone biopsy 04/09/18. He states overall he feels okay. Denies fevers, chills, or rigors. He denies chest pain, shortness of breath, or cough. Denies nausea, vomiting, diarrhea, or constipation. Denies abdominal pain or appetite changes. Denies oral thrush or skin lesions. Denies pain at surgical site, but states he was having some back pain earlier. Reports minimal urine output since admission. States he does not feel like he needs to void. Infect Dis PN-Objective Data - Labs CBC & Chem 7: 04/11/18 08:13 04/11/18 08:13 Labs: Laboratory Results - last 24 hr 04/10/18 04/10/18 04/10/18 11:54 12:44 17:20 WBC RBC Hgb Hct MCV MCH MCHC RDW Plt Count MPV Immature Gran % Seg Neutrophils % Band Neutrophils % Lymphocytes % Monocytes % Eosinophils % Basophils % Metamyelocytes % Neutrophils # Lymphocytes # Monocytes # Eosinophils # Basophils # Nucleated RBCs/100 WBC Platelet Estimate Sodium Potassium Chloride Carbon Dioxide BUN Creatinine Est GFR ( Amer) Est GFR (Non-Af Amer) BUN/Creatinine Ratio Glucose POC Glucose 297 H 370 H Calculated Osmolality Calcium Magnesium Vancomycin Trough 30 H 04/10/18 04/11/18 04/11/18 21:08 07:21 08:13 WBC 9.5 RBC 3.12 L Hgb 9.0 L Hct 26.6 L MCV 85.3 MCH 28.8 MCHC 33.8 RDW 14.6 H Plt Count 258 MPV 10.2 Immature Gran % Test Not Performed Seg Neutrophils % 68.0 Band Neutrophils % 2.0 Lymphocytes % 14.0 Monocytes % 8.0 Eosinophils % 6.0 Basophils % Test Not Performed Metamyelocytes % 2.0 H Neutrophils # 6.7 Lymphocytes # 1.3 Monocytes # 0.8 Eosinophils # 0.6 Basophils # Test Not Performed Nucleated RBCs/100 WBC 0.3 H Platelet Estimate Normal Sodium Potassium Chloride Carbon Dioxide BUN Creatinine Est GFR ( Amer) Est GFR (Non-Af Amer) BUN/Creatinine Ratio Glucose POC Glucose 350 H 238 H Calculated Osmolality Calcium Magnesium Vancomycin Trough 04/11/18 08:13 WBC RBC Hgb Hct MCV MCH MCHC RDW Plt Count MPV Immature Gran % Seg Neutrophils % Band Neutrophils % Lymphocytes % Monocytes % Eosinophils % Basophils % Metamyelocytes % Neutrophils # Lymphocytes # Monocytes # Eosinophils # Basophils # Nucleated RBCs/100 WBC Platelet Estimate Sodium 128 L Potassium 3.9 Chloride 99 Carbon Dioxide 20 L BUN 36 H Creatinine 4.02 H Est GFR ( Amer) 19 L Est GFR (Non-Af Amer) 16 L BUN/Creatinine Ratio 9 Glucose 265 H POC Glucose Calculated Osmolality 284 Calcium 7.7 L Magnesium 1.7 Vancomycin Trough Cultures: Cultures 04/09/18 23:09 Wound Culture - Preliminary Right Foot No growth. 04/08/18 14:48 Blood Culture - Preliminary Peripheral Venipuncture No growth. - Impressions Impressions Ankle X-Ray 04/10/18 00:50 IMPRESSION: Interval removal of the hardware from the hindfoot and ankle. 6 mm screw fragment remains in the lateral hindfoot soft tissues. Suspected partial bony resection of the cuboid and proximal 5th metatarsal. D/ / 04/10/2018 07:28:08 Josh Rivera MD / jhonny Interpreting Provider: Josh Rivera MD Foot X-Ray 04/10/18 00:50 IMPRESSION: Interval removal of the hardware from the hindfoot and ankle. 6 mm screw fragment remains in the lateral hindfoot soft tissues. Suspected partial bony resection of the cuboid and proximal 5th metatarsal. D/ / 04/10/2018 07:28:08 Josh Rivera MD / jhonny Interpreting Provider: Josh Rivera MD Exam - Constitutional Vitals: Temp Pulse Resp BP Pulse Ox 97.5 F L 72 16 151/76 95 04/11/18 07:23 04/11/18 07:23 04/11/18 07:23 04/11/18 07:23 04/11/18 07:23 General appearance: cooperative, morbidly obese, no acute distress - Head Head exam: Present: atraumatic, normal inspection, normocephalic - Eye Eye exam: Present: EOMI, normal appearance, PERRL Pupils: Present: normal accommodation - ENT ENT exam: Present: mucous membranes moist - Neck Neck exam: Present: normal inspection - Respiratory Respiratory exam: Present: CTAB. Absent: rales, respiratory distress, rhonchi, wheezes - Cardiovascular Cardiovascular exam: Present: RRR, +S1, +S2 - GI/Abdominal GI/Abdominal exam: Present: distended (obese), normal bowel sounds, soft. Absent: tenderness - Extremities Exam Extremities exam: Absent: joint swelling, pedal edema, tenderness Additional comments: Right foot post-op dressing C/D/I. - Neurological Exam Neurological exam: Present: alert, oriented X3, no focal deficits - Psychiatric Psychiatric exam: Present: normal affect, normal mood - Skin Skin exam: Present: dry, intact, normal color, warm Consult Discharge Plan - Plan Referrals: Dolly Garcia, DENTAL CHAIRSIDE ASSISTANT [Primary Care Provider] - - Attending Attestation I examined this patient and my medical decision-making was reviewed with the Resident Physician. I agree with the documented findings, disposition and treatment plan as described except to the extent set forth below.
--- NOTE | 2018-04-11 12:52 | Nephrology Consult Note ---
Date of Encounter: 04/11/18 Time of Encounter: 12:50 Assessment and Plan (1) YESENIA (acute kidney injury) Current Visit: Yes Status: Acute Avoid nephrotoxins and renal dose all medications. Would recommend decreasing Gabapentin to 300 daily instead of 400 TID. Strict I/O. Renal Diet. Urine and Serum studies ordered to rule out other processes. Retroperitoneal UTS ordered. (2) Abscess of right foot Current Visit: Yes Status: Acute Per ID/Podiatry. (3) Diabetic foot ulcer Current Visit: Yes Status: Acute See above. Qualifiers: Diabetic foot ulcer location: heel Diabetes mellitus type: type 2 Laterality: right Non-pressure ulcer stage: unspecified non-pressure ulcer stage Qualified Code(s): E11.621 - Type 2 diabetes mellitus with foot ulcer; L97.419 - Non-pressure chronic ulcer of right heel and midfoot with unspecified severity (4) Hyponatremia syndrome Current Visit: Yes Status: Acute Na 128. Will monitor. History of Present Illness - Reason for Consult Consult date: 04/11/18 Acute Kidney Injury - Chief Complaint Right leg pain - History of Present Illness Mr Bowen is a 47 year old male who came to ED for right lower leg pain. PMH: DM 2, CKD 3, morbid obesity, and NEHEMIAH with CPAP. Does see Dr. Matthews in the office for CKD 3. Baseline Scr is approximately 1.34 and GFR 57. Denies use of chronic Nsaids or any medication changes recently. Admits to nausea/vomiting/ diarrhea for 2-3 weeks at home before coming to the hospital. He admits to fevers a couple days before admission. ID/Podiatry following wound. Went to the OR Sunday for intervention and will return Sunday. Scr now 4.02 and GFR is 16. Per old records GFR was 21 and patient was on Vancomycin at that time as well. No family history of kidney issues. Reports urinating fine at home. He does notice that he is not urinating as much as he has in the past. Denies frequency, hesitancy, dysuria. Past Med Surg Social Fam HX - Past Medical History Medical history: arthritis, asthma, diabetes, hypertension, renal disease, other Additional medical history: sleep apnea Psychiatric history: anxiety, depression - Past Surgical History Surgical History: knee replacement, orthopedic, other, other Additional surgical history: right total knee replacement,rt ankle. shoulder surgery. KIDNESY STONRE REMOVAL. RIGHT KNEE SCOPE X2. TOE DEBRIDEMENT. RIGHT FIBILLA. 11/02/17 R FOOT/ANKLE FUSION W/POSSIBLE HARDWARE USAGE @[facility] W/ DR VALLADARES - Social History Smoking Status: Former smoker Smokeless Tobacco Status: No Alcohol use: none Drug use: none Medications and Allergies Cetirizine HCl [24Hour Allergy] 10 mg PO DAILY PRN 01/19/17 [History] Insulin Glargine [Lantus] 45 unit SQ BID 01/19/17 [History] Tramadol HCl [Ultram] 50 mg PO QID PRN 01/19/17 [History] ARIPiprazole [Abilify] 10 mg PO DAILY 07/27/17 [History] Buspirone HCl [Buspar] 30 mg PO BID 07/27/17 [History] Glimepiride [Amaryl] 4 mg PO DAILY 07/27/17 [History] PARoxetine HCl [Paroxetine HCl] 40 mg PO DAILY 07/27/17 [History] Allopurinol [Zyloprim 100 MG] 100 mg PO DAILY tablet 11/07/17 [Rx] Cyanocobalamin (B-12) [Vitamin B12] 1,000 mcg PO DAILY tablet 11/07/17 [Rx] Gabapentin [Neurontin] 400 mg PO TID 30 Days #90 capsule 11/07/17 [Rx] Ergocalciferol (VITAMIN D2) [Drisdol (50,000 Unit)] 50,000 unit PO TU 04/08/18 [ History] Insulin ASPART [Novolog Flexpen] 15 - 25 unit SQ TIDWM 04/08/18 [History] Meloxicam [Mobic] 15 mg PO DAILY 04/08/18 [History] Metoprolol Succinate [Toprol Xl] 50 mg PO DAILY 04/08/18 [History] 3 Allergy/AdvReac Type Severity Reaction Status Date / Time No Known Allergies Allergy Verified 11/02/17 10:48 Review of Systems ROS unobtainable: other (as per HPI) Constitutional: fatigue Gastrointestinal: no change in bowel habits Exam - Vital Signs Vital signs: Initial Vital Signs Temp Pulse Resp BP Pulse Ox 98.6 F 77 15 128/78 94 04/08/18 11:23 04/08/18 11:23 04/08/18 11:23 04/08/18 11:23 04/08/18 11:23 Vital Signs - Last 8 Hours Temp Pulse Resp BP Pulse Ox 04/11/18 11:55 98.1 F 69 18 126/77 94 04/11/18 07:23 97.5 F L 72 16 151/76 95 Intake and Output 04/10/18 04/11/18 04/11/18 23:59 07:59 15:59 Intake Total 2036 / 2036 2700 / 2700 0 / 0 Output Total 100 / 100 0 / 0 75 / 75 Balance 1936 / 1936 2700 / 2700 -75 / -75 Intake: IV Fluids 1100 / 1100 2100 / 2100 0.9 % Sodium Chloride 1,000 ML 1000 / 1000 2000 / 2000 @ 150 mls/hr IVC .[id number] [facility] Rx #:[id number] Zosyn 3.375 GM In 0.9 % Sodium 100 / 100 100 / 100 Chloride (Mini-Bag +) 100 ML @ 25 mls/hr IVPB Q8H N[facility] Rx#: [id number] Oral 937 / 937 600 / 600 0 / 0 Output: Urine 100 / 100 0 / 0 75 / 75 Other: Meal Dinner Breakfast Percent of Meal Consumed 100% 100% Weight 185.1 kg Blood Glucose* 350 238 219 Patient Weight 04/11/18 23:59 Weight 185.1 kg - General Appearance General appearance: obese EENT: ATNC, hearing intact, vision intact Neck: supple Respiratory: clear Cardiology: no edema, normal S1, normal S2 Gastrointestinal: normoactive bowel sounds, no tenderness, no guarding Integumentary: no rash, warm and dry Neurologic: alert and oriented x3 Psychiatric: mood/affect appropriate, cooperative Results - Lab Results 04/11/18 08:13 04/11/18 08:13 Most recent lab results Calcium 7.7 mg/dL (8.6-10.3) L 04/11/18 08:13 Phosphorus 1.8 mg/dL (2.7-4.5) L 04/08/18 11:37 Magnesium 1.7 mg/dL (1.6-2.6) 04/11/18 08:13 Consult Discharge Plan - Plan Referrals: Dolly Garcia, ASSISTANT NURSE MANAGER [Primary Care Provider] -
[2018-04-11] MEDS ORDERED: 0.9 % Sodium Chloride 1,000 ML IVC SCH (14:45)
[2018-04-11 15:24] LABS: Bilirubin,Urine Negative (Negative); Blood,Urine Large (Negative); Clarity,Urine Turbid (Clear); Color,Urine Yellow (Yellow); Glucose,Urine (UA) 100 mg/dL (Normal); Ketones,Urine Negative (Negative); Leukocyte Esterase,Urine Negative (Negative); Nitrite,Urine Negative (Negative); PH,Urine 5.5 pH Units (5.0-8.0); Protein,Urine 100 mg/dL (Neg-Trace); Urobilinogen,Urine Normal (Normal)
[2018-04-11 15:27] LABS: Bacteria,Urine None Seen per hpf (None-Few); Hyaline Casts,Urine None Seen per lpf (None-Few); Squamous Epithelial Cell,Urine Many per lpf (None-Few); WBC,Urine 30-50 per hpf (0-3)
[2018-04-11 15:44] LABS: Amorphous Sediment,Urine Moderate (Few)
[2018-04-11 15:49] LABS: Protein/Creatinine Ratio,Urine 1.31 mg/mg (0.00-0.20); Sodium, Urine 35.9 mEq/L
--- NOTE | 2018-04-11 16:22 | Internal Med Progress Note ---
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 Press Feeder was consulted, plan was to take the patient to OR for washout and readjust hardware. Hospitalist will continue manage the infection. - Blood culture, wound culture sent, patient received Zosyn and vancomycin at the ED. - Continue antibiotics, consult ID tomorrow. - Podiatry following. 04/09: Day #2 Zosyn/Vancomycin. I&D this afternoon 04/10: Postop day 1. Awaiting cultures. Vancomycin is stopped for now. We restarted if MRSA grows out. Patient is day #3 IV Zosyn. Anticipate he will need 6 weeks of IV antibiotics, as indicated by infectious disease note. Will need a PICC line at discharge, will consult VAT prior to that time 04/11: I discussed the case with Agueda Rahman and infectious disease. She will continue on IV Zosyn, renally dosed. Currently day #4 and anticipate a 6 week course. We are awaiting cultures. (2) Osteomyelitis Current Visit: Yes Status: Acute Assessment and plan: X-ray of right foot revealed possible osteomyelitis, patient received Zosyn and vancomycin at ED, cultures sent, will continue current antibiotics, will consult ID tomorrow. 04/09: Await I&D, abx as described above 04/11: As discussed above. (3) HTN (hypertension) Current Visit: No Status: Chronic Assessment and plan: BP controlled, continue home medication. 04/11: Blood pressure improved. Beta charmaine restarted. Monitor (4) DM2 (diabetes mellitus, type 2) Current Visit: No Status: Acute Assessment and plan: Poorly controlled diabetes, continue home dose of long-acting insulin, decrease the dose of bolus insulin before each meal, started patient on insulin sliding scale. 04/09: Blood sugars are elevated today. As to further adjust just yet given the fact that he is nothing by mouth for surgery. We will continue to monitor. 04/10: Levemir increased for elevated blood sugars.. Continue sliding scale. Monitor 04/11: Levemir further increased to 55 units subcutaneous twice a day for persistently elevated blood sugars. Continue to monitor. (5) CKD (chronic kidney disease) Current Visit: No Status: Chronic Assessment and plan: Creatinine at the baseline, continue monitoring. Continue IV fluid. Avoid nephrotoxins as best able 04/10: Now with acute kidney injury. Avoid nephrotoxins. Vancomycin is held. Continue IV fluids. Recheck BMP in the morning. 04/11: Creatinine continues to worsen. Nephrology is consulted. I discussed the case with nephrology. Suspect this is due to vancomycin-induced nephropathy, plus recent sepsis and hypotension. Continue to avoid nephrotoxins. Renal ultrasound is ordered. Closely monitor. No indication for acute dialysis, although I am concerned of his volume status given the fluids he is received and the fact that he remains anuric. We will continue to closely monitor. (6) Hyponatremia syndrome Current Visit: Yes Status: Acute Assessment and plan: Unknown etiology, continue IV fluid, repeat BMP in a.m. 04/09: Patient's hyponatremia is secondary to hypernatremia, " pseudohyponatremia " May also be a component of hypovolemic hyponatremia. Monitor. Sodium is improving. 04/11: Sodium 128 today. Not particularly changed from yesterday. Continue to monitor. Nephrology input is appreciated (7) Sepsis Current Visit: Yes Status: Acute Assessment and plan: Patient had a fever, WBC elevated, likely infection of her right foot. Blood culture and wound culture sent. Lactic acid is normal. Continue IV fluid. Continue current antibiotics. ID consult tomorrow. 04/09: Sepsis resolving 04/10: Patient was mildly hypotensive today. IV fluids were given. He has improved. We will continue to monitor. He is status post IND. White blood cell count is now normal. 04/11: Sepsis resolving (8) Hypomagnesemia Current Visit: Yes Status: Acute Assessment and plan: Replaced, check magnesium in a.m. 04/11: Improved (9) NEHEMIAH (obstructive sleep apnea) Current Visit: No Status: Acute Assessment and plan: On CPAP, compliant in hospital - Time Spent With Patient Total time spent is greater than 50% in coordination of care (as documented) at patient's floor/unit and/or counseling patient: 25 - 35 minutes - Subjective Interval history: Chief complaint right foot pain HPI: A 47-year-old male with a history of morbid obesity, sleep apnea on CPAP type 2 diabetes mellitus insulin requiring, hypertension, hyperlipidemia, chronic easy stage III, and right Charcot foot. Patient was admitted on April 08 with a complaint of right foot pain, ulcer and bleeding. pt had a blister initially at his Right foot lateral border of the heel, which ruptured and subsequently head bleeding and pus drainage. Patient presented to the emergency room where he was diagnosed with right foot infection with associated heel abscess for which he is planned to undergo I&D today. A she has been seen by both podiatry and infectious disease. Patient did have x-rays of his right foot which showed erosions at the talus and navicularis. Concerning for osteomyelitis. Sedimentation rate was 106, CRP was greater than 300. She is currently day #2 of IV antibiotics, currently Zosyn and vancomycin. Altered data is pending. Pt's other medical issues presently are stable. He is awaiting Podiatric Surgery today. She is denying any fevers or chills. No chest pain or shortness of breath. No nausea, vomiting, diarrhea. 04/10: Postop day #1 incision and drainage of right ankle and foot with removal of hardware, and biopsies taken of talus and navicular bone. Cultures pending. Os operative course has been complicated by low blood pressures late morning. His Lopressor was held. He was given fluids. Blood pressure has improved as of this time 2/90 systolic. Patient states he is feeling well. Denies any chest pain or shortness of breath. No nausea, vomiting, diarrhea. No fevers or chills. She also noted to have acute kidney injury now with a creatinine of 2.48, with his level on admission being 1.34. 04/11: Patient continues to be Anuric despite IV fluids. Creatinine is increased to 4.05. Potassium remains normal. Serum bicarbonate of 20, sodium 128. Patient states he is feeling okay. Denies any chest pain or shortness of breath. No nausea, vomiting, diarrhea. No fevers or chills. Nephrology is consulted. - Constitutional Vitals: Temp Pulse Resp BP Pulse Ox 97.9 F 70 16 149/76 93 04/11/18 14:47 04/11/18 14:47 04/11/18 14:47 04/11/18 14:47 04/11/18 14:47 General appearance: Present: A&O X 3, morbidly obese, no acute distress - Head Head exam: Present: atraumatic, normocephalic - Eye Eye exam: Present: PERRL, conjuntiva pink, sclera anicteric Pupils: Present: PERRL - Neck Neck exam general surgery: Present: supple, trachea midline. Absent: lymphadenopathy - Respiratory Respiratory exam: Present: CTAB. Absent: accessory muscle use, rales, rhonchi, wheezes - Cardiovascular Cardiovascular exam: Present: RRR, +S1, +S2. Absent: diastolic murmur, gallop, rubs, systolic murmur - GI/Abdominal GI/Abdominal exam: Present: normal bowel sounds, soft, no peritoneal signs. Absent: distended, tenderness - Extremities Exam Extremities exam: Present: pedal edema, warm, radial pulses palpable and symmetrical. Absent: calf tenderness, cyanotic Additional comments: Foot postoperative with dressing on Trace edema bilateral lower extremities - Neurological Exam Neurological exam: Present: CN II-XII intact, oriented X3, no focal deficits. Absent: pronater drift, facial droop, speech deficit - Skin Skin exam: Present: dry, intact Internal Medicine: Result - Labs CBC & Chem 7: 04/11/18 08:13 04/11/18 08:13 Labs: Short CBC 04/11/18 Range/Units 08:13 WBC 9.5 (4.3-11.1) K/mcL Hgb 9.0 L (12.9-16.9) g/dL Hct 26.6 L (37.5-50.1) % Plt Count 258 (140-400) K/mcL Neutrophils # 6.7 (1.6-8.9) K/mcL BMP 04/11/18 08:13 Sodium 128 L Potassium 3.9 Chloride 99 Carbon Dioxide 20 L BUN 36 H Creatinine 4.02 H Glucose 265 H Calcium 7.7 L Urine 04/11/18 Range/Units 14:50 Urine Color Yellow (Yellow) Urine Clarity Turbid A (Clear) Urine pH 5.5 (5.0-8.0) pH Units Ur Specific Barlow 1.020 (1.010-1.025) Urine Protein 100 H (Neg-Trace) mg/dL Urine Glucose (UA) 100 H (Normal) mg/dL - ABG Interpretation ABG results: PT/INR, D-dimer PT 12.8 Seconds (9.4-12.1) H 04/08/18 11:37 - Impressions Impressions Ankle X-Ray 04/10/18 00:50 IMPRESSION: Interval removal of the hardware from the hindfoot and ankle. 6 mm screw fragment remains in the lateral hindfoot soft tissues. Suspected partial bony resection of the cuboid and proximal 5th metatarsal. D/ / 04/10/2018 07:28:08 Josh Rivera MD / jhonny Interpreting Provider: Josh Rivera MD Foot X-Ray 04/10/18 00:50 IMPRESSION: Interval removal of the hardware from the hindfoot and ankle. 6 mm screw fragment remains in the lateral hindfoot soft tissues. Suspected partial bony resection of the cuboid and proximal 5th metatarsal. D/ / 04/10/2018 07:28:08 Josh Rivera MD / jhonny Interpreting Provider: Josh Rivera MD Chest X-Ray 04/11/18 10:10 IMPRESSION: Low lung volumes. No definite acute cardiopulmonary findings. D/ / Rayne Steinberg MD / Rayne Steinberg MD Interpreting Provider: Rayne Steinberg MD Consult Discharge Plan - Plan Referrals: Dolly Garcia, DITCH RIDER [Primary Care Provider] -
[2018-04-11] MEDS: Gabapentin 300 MG CAPSULE PO SCH (21:09)
--- NOTE | 2018-04-11 22:21 | Anesthesia Evaluation PreOp ---
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 MANAGER History: Other (Diabetic Neuropathy) Other Medical History: Renal (CKD), Diabetes Type II (Poorly Controlled), Other (Extreme Morbid Obesity, Anxiety, Depression, Hyponatremia) Anesthesia History: No Prior Anesthetic Complications, Past Anesthesia (I and D under MAC 5-30) Alcohol Use: none Drug use: none Medications and Allergies Cetirizine HCl [24Hour Allergy] 10 mg PO DAILY PRN 01/19/17 [History] Insulin Glargine [Lantus] 45 unit SQ BID 01/19/17 [History] Tramadol HCl [Ultram] 50 mg PO QID PRN 01/19/17 [History] ARIPiprazole [Abilify] 10 mg PO DAILY 07/27/17 [History] Buspirone HCl [Buspar] 30 mg PO BID 07/27/17 [History] Glimepiride [Amaryl] 4 mg PO DAILY 07/27/17 [History] PARoxetine HCl [Paroxetine HCl] 40 mg PO DAILY 07/27/17 [History] Allopurinol [Zyloprim 100 MG] 100 mg PO DAILY tablet 11/07/17 [Rx] Cyanocobalamin (B-12) [Vitamin B12] 1,000 mcg PO DAILY tablet 11/07/17 [Rx] Gabapentin [Neurontin] 400 mg PO TID 30 Days #90 capsule 11/07/17 [Rx] Ergocalciferol (VITAMIN D2) [Drisdol (50,000 Unit)] 50,000 unit PO TU 04/08/18 [ History] Insulin ASPART [Novolog Flexpen] 15 - 25 unit SQ TIDWM 04/08/18 [History] Meloxicam [Mobic] 15 mg PO DAILY 04/08/18 [History] Metoprolol Succinate [Toprol Xl] 50 mg PO DAILY 04/08/18 [History] 3 Allergy/AdvReac Type Severity Reaction Status Date / Time No Known Allergies Allergy Verified 11/02/17 10:48 - Meds/Allergy Pre-op Review Medications Reviewed: Yes Allergies Reviewed: Yes Beta Blockers on Current Med List: Yes (Given Metoprolol 5-31 at 2110) Anesthesia Results - Labs 04/11/18 08:13 04/11/18 08:13 Laboratory Tests 04/11/18 04/11/18 08:13 08:13 Hgb 9.0 L Hct 26.6 L Plt Count 258 Sodium 128 L Potassium 3.9 BUN 36 H Creatinine 4.02 H - Imaging EKG: report reviewed (NSR) Anesthesia Exam Vital Signs/O2 Sat/Glucose, Most Current Temp Pulse Resp BP Pulse Ox 04/11/18 20:48 98.0 F 75 16 123/79 96 Height: 6'0 Weight: 408 lbs NPO (# of Hours): MN Pain Scale: 0 - HEENT Pupil (Motor): Pupils equal, EOMI Mallampati: IV Teeth: Normal Oral Opening: Less than or equal to 3 - INTEGRATION MANAGER LOC: Oriented INTEGRATION MANAGER Motor: Normal RUE, Normal LUE, Normal RLE, Normal LLE, Normal Face INTEGRATION MANAGER Sensory: Normal: RUE, LUE, Face, Deficit: RLE (neuropathic), LLE ( neuropathic) - Cardiac Rhythm: Regular Murmur: None JVD: No Carotid Bruit: No - Pulmonary Breath Sounds: bilateral Clear Respiratory Effort: Symmetrical Anesthesia Assess/Plan ASA Score: 4 (HTN NEHEMIAH DM CKD Extreme Morbid Obesity) Modified [place] Scale for Level of Consciousness: Cooperative, oriented, and tranquil Anesthetic Plan: MAC Monitoring Plan: Standard Monitors Recovery Plan: PACU (Discussed MAC, possible GA, agrees to proceed)
[2018-04-12] MEDS: Piperacillin/Tazobactam 3.375 GM in 0.9 % Sodium Chloride Mini Bag 100 ML IVPB SCH ×2 (05:32→16:54)
[2018-04-12] MEDS: Insulin LISPRO 300 UNITS/3 ML VIAL SQ SCH ×4 (07:15→23:00)
[2018-04-12] MEDS: traMADol 50 MG TABLET PO PRN ×2 (07:16→20:50)
[2018-04-12] MEDS: *HR* Heparin 5,000 UNIT/ML VIAL SQ SCH ×3 (07:45→16:58)
[2018-04-12] MEDS ORDERED: Insulin DETEMIR 100 UNIT/ML X5UNITS SQ ONE (08:50)
[2018-04-12 09:14] LABS: Hematocrit 24.9 % (37.5-50.1); Hemoglobin 8.5 g/dL (12.9-16.9); Mean Corpuscular HGB Conc 34.1 g/dL (31.6-35.5); Mean Corpuscular Hemoglobin 28.9 pg (28.0-33.3); Mean Corpuscular Volume 84.7 fL (83.0-100.0); Mean Platelet Volume 9.6 fL (9.4-12.4); Nucleated Red Blood Cells 0.2 /100 WBC (0); Platelet Count 289 K/mcL (140-400); Red Blood Count 2.94 M/mcL (4.19-5.50); Red Cell Distribution Width 14.5 % (11.5-14.5)
[2018-04-12 09:36] LABS: Calcium 7.8 mg/dL (8.6-10.3); Magnesium 1.8 mg/dL (1.6-2.6); Phosphorous 5.3 mg/dL (2.7-4.5); Potassium 3.9 mEq/L (3.5-5.1)
[2018-04-12 09:40] LABS: Eosinophils # 0.6 K/mcL (0.0-0.6); Lymphocytes # 2.6 K/mcL (0.6-4.6); Monocytes # 0.2 K/mcL (0.0-1.3); Neutrophils # 6.5 K/mcL (1.6-8.9); Platelet Estimate Normal (Normal)
--- NOTE | 2018-04-12 10:04 | Infectious Disease Progress No ---
Date of Encounter: 04/12/18 Time of Encounter: 10:03 - Assessment and Plan (1) Sepsis Current Visit: Yes Status: Acute The patient had two SIRS criteria on admission. Likely secondary to right foot infection and OM. Improved. Afebrile. WBC normalized. Blood cultures drawn 04/08/18 are NGTD x 2 sets. Qualifiers: Sepsis type: sepsis due to unspecified organism Qualified Code(s): A41.9 - Sepsis, unspecified organism (2) Osteomyelitis Current Visit: Yes Status: Acute Causative organism: GCS per wound culture, but concern for polymicrobial infection. Location: Right foot talus and navicularis. Likely secondary to right foot DFU. X-ray of the right foot completed 04/08/18 showed bony erosion of the talus and navicularis. ESR 106, CRP >300. Podiatry consulted and following. Status post I&D of the right ankle/foot, removal of hardware, and bone biopsy. Operative note was reviewed. Purulence noted Intra-Op adjacent to the hardware. Intraoperative cultures are positive for S. aureus, sensitivity pending. Pathology pending. Wound care and activity restrictions as outlined by the podiatry team. Hold Vanc for now given YESENIA. Will re-start if MRSA isolated on cultures. Continue Zosyn 3.375 grams IV, but decrease dose to Q12H for CrCl of 24. Duration of treatment depends on the clinical picture, but likely 6 weeks of IV antibiotics. De-escalate based on cultures. Monitor renal function and for drug toxicity and dose-adjust antibiotics. Consult VAT prior to discharge once final antibiotic regimen determined. Further recommendations for weekly labs, ID follow-up, and OPAT orders to follow pending additional cultures and labs. Qualifiers: Osteomyelitis type: other acute Osteomyelitis location: foot Laterality: right Qualified Code(s): M86.171 - Other acute osteomyelitis, right ankle and foot (3) Abscess of right foot Current Visit: Yes Status: Acute Location: Right foot. Causative organism: GCS and S. aureus. Additional cultures pending. Status post I & D 04/09/[address] Mercer. Antibiotics as above for now. (4) YESENIA (acute kidney injury) Current Visit: Yes Status: Acute YESENIA on CKD. Serum creatinine up to 6 today with little urine output. Etiology unclear, but likely multifactorial: hypotension post-op, Vancomycin, dehydration Continue to trend. Will hold Vanc for now unless MRSA is isolated on cultures. Nephrology consulted and following. RP UTS negative. Avoid additional nephrotoxins. Dose-adjust antibiotics as needed. (5) Charcot foot due to diabetes mellitus Current Visit: No Status: Acute Status post reconstruction 10/[address] Mercer. (6) HTN (hypertension) Current Visit: No Status: Chronic Qualifiers: Hypertension type: essential hypertension Qualified Code(s): I10 - Essential (primary) hypertension (7) DM2 (diabetes mellitus, type 2) Current Visit: No Status: Acute Uncontrolled. HgbA1C 9.4%. Recommend aggressive glucose monitoring and control to promote wound healing and prevent re-infection. Management per the primary team. 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 Dose-adjust antibiotics. Avoid nephrotoxins as able. Qualifiers: Chronic kidney disease stage: stage 2 (mild) Qualified Code(s): N18.2 - Chronic kidney disease, stage 2 (mild) - Subjective Interval history: Patient seen and examined. No acute events noted overnight. Status post I & D of the right ankle with removal of hardware and bone biopsy 04/09/18. He states overall he feels okay. Denies fevers, chills, or rigors. He denies chest pain, shortness of breath, or cough. Denies nausea, vomiting, diarrhea, or constipation. Denies abdominal pain or appetite changes. Denies oral thrush or skin lesions. Denies pain at surgical site currently, but got some pain medication this morning. Reports minimal urine output since admission. States he does not feel like he needs to void. Infect Dis PN-Objective Data - Labs CBC & Chem 7: 04/12/18 08:56 04/12/18 08:56 Labs: Laboratory Results - last 24 hr 04/11/18 04/11/18 04/11/18 11:57 12:57 12:57 WBC RBC Hgb Hct MCV MCH MCHC RDW Plt Count MPV Seg Neutrophils % Band Neutrophils % Lymphocytes % Monocytes % Eosinophils % Neutrophils # Lymphocytes # Monocytes # Eosinophils # Nucleated RBCs/100 WBC Platelet Estimate Sodium Potassium Chloride Carbon Dioxide BUN Creatinine Est GFR ( Amer) Est GFR (Non-Af Amer) BUN/Creatinine Ratio Glucose POC Glucose 219 H Calculated Osmolality Uric Acid 6.3 Calcium Phosphorus Magnesium Creatine Kinase Urine Color Urine Clarity Urine pH Ur Specific [place] Urine Protein Urine Glucose (UA) Urine Ketones Urine Blood Urine Nitrite Urine Bilirubin Urine Urobilinogen Ur Leukocyte Esterase Urine Microscopic RBC Urine Microscopic WBC Ur Squamous Epith Cells Amorphous Sediment Urine Bacteria Hyaline Casts Urine Yeast Ur Culture Indicated? Urine Creatinine Protein/Creatinin Ratio Urine Sodium Urine Total Protein Random Vancomycin 24 04/11/18 04/11/18 04/11/18 12:57 14:50 14:50 WBC RBC Hgb Hct MCV MCH MCHC RDW Plt Count MPV Seg Neutrophils % Band Neutrophils % Lymphocytes % Monocytes % Eosinophils % Neutrophils # Lymphocytes # Monocytes # Eosinophils # Nucleated RBCs/100 WBC Platelet Estimate Sodium Potassium Chloride Carbon Dioxide BUN Creatinine Est GFR ( Amer) Est GFR (Non-Af Amer) BUN/Creatinine Ratio Glucose POC Glucose Calculated Osmolality Uric Acid Calcium Phosphorus Magnesium Creatine Kinase 1139 H Urine Color Yellow Urine Clarity Turbid A Urine pH 5.5 Ur Specific [place] 1.020 Urine Protein 100 H Urine Glucose (UA) 100 H Urine Ketones Negative Urine Blood Large H Urine Nitrite Negative Urine Bilirubin Negative Urine Urobilinogen Normal Ur Leukocyte Esterase Negative Urine Microscopic RBC 5-15 H Urine Microscopic WBC 30-50 H Ur Squamous Epith Cells Many H Amorphous Sediment Moderate H Urine Bacteria None Seen Hyaline Casts None Seen Urine Yeast Test Not Performed Ur Culture Indicated? NO Urine Creatinine 140 Protein/Creatinin Ratio 1.31 H Urine Sodium 35.9 Urine Total Protein 184 H Random Vancomycin 04/11/18 04/11/18 04/12/18 16:55 21:11 06:22 WBC RBC Hgb Hct MCV MCH MCHC RDW Plt Count MPV Seg Neutrophils % Band Neutrophils % Lymphocytes % Monocytes % Eosinophils % Neutrophils # Lymphocytes # Monocytes # Eosinophils # Nucleated RBCs/100 WBC Platelet Estimate Sodium Potassium Chloride Carbon Dioxide BUN Creatinine Est GFR ( Amer) Est GFR (Non-Af Amer) BUN/Creatinine Ratio Glucose POC Glucose 156 H 181 H 200 H Calculated Osmolality Uric Acid Calcium Phosphorus Magnesium Creatine Kinase Urine Color Urine Clarity Urine pH Ur Specific [place] Urine Protein Urine Glucose (UA) Urine Ketones Urine Blood Urine Nitrite Urine Bilirubin Urine Urobilinogen Ur Leukocyte Esterase Urine Microscopic RBC Urine Microscopic WBC Ur Squamous Epith Cells Amorphous Sediment Urine Bacteria Hyaline Casts Urine Yeast Ur Culture Indicated? Urine Creatinine Protein/Creatinin Ratio Urine Sodium Urine Total Protein Random Vancomycin 04/12/18 04/12/18 08:56 08:56 WBC 9.8 RBC 2.94 L Hgb 8.5 L Hct 24.9 L MCV 84.7 MCH 28.9 MCHC 34.1 RDW 14.5 Plt Count 289 MPV 9.6 Seg Neutrophils % 62.0 Band Neutrophils % 4.0 Lymphocytes % 26.0 Monocytes % 2.0 Eosinophils % 6.0 Neutrophils # 6.5 Lymphocytes # 2.6 Monocytes # 0.2 Eosinophils # 0.6 Nucleated RBCs/100 WBC 0.2 H Platelet Estimate Normal Sodium 128 L Potassium 3.9 Chloride 99 Carbon Dioxide 21 L BUN 47 H Creatinine 6.20 H Est GFR ( Amer) 12 L Est GFR (Non-Af Amer) 10 L BUN/Creatinine Ratio 8 Glucose 206 H POC Glucose Calculated Osmolality 284 Uric Acid Calcium 7.8 L Phosphorus 5.3 H Magnesium 1.8 Creatine Kinase Urine Color Urine Clarity Urine pH Ur Specific [place] Urine Protein Urine Glucose (UA) Urine Ketones Urine Blood Urine Nitrite Urine Bilirubin Urine Urobilinogen Ur Leukocyte Esterase Urine Microscopic RBC Urine Microscopic WBC Ur Squamous Epith Cells Amorphous Sediment Urine Bacteria Hyaline Casts Urine Yeast Ur Culture Indicated? Urine Creatinine Protein/Creatinin Ratio Urine Sodium Urine Total Protein Random Vancomycin Cultures: Cultures 04/09/18 23:09 Wound Culture - Preliminary Right Foot Staphylococcus aureus 04/08/18 14:48 Blood Culture - Preliminary Peripheral Venipuncture No growth. Serology 04/11/18 04/11/18 Range/Units 14:50 14:50 Urine Color Yellow (Yellow) Urine Clarity Turbid A (Clear) Urine pH 5.5 (5.0-8.0) pH Units Ur Specific [place] 1.020 (1.010-1.025) Urine Protein 100 H (Neg-Trace) mg/dL Urine Glucose (UA) 100 H (Normal) mg/dL Urine Ketones Negative (Negative) mg/dL Urine Blood Large H (Negative) Urine Nitrite Negative (Negative) Urine Bilirubin Negative (Negative) Urine Urobilinogen Normal (Normal) mg/dL Ur Leukocyte Esterase Negative (Negative) Urine Microscopic RBC 5-15 H (0-3) per hpf Urine Microscopic WBC 30-50 H (0-3) per hpf Ur Squamous Epith Cells Many H (None-Few) per lpf Amorphous Sediment Moderate H (Few) Urine Bacteria None Seen (None-Few) per hpf Hyaline Casts None Seen (None-Few) per lpf Urine Yeast Test Not Performed Ur Culture Indicated? NO (NO) Urine Creatinine 140 mg/dL Protein/Creatinin Ratio 1.31 H (0.00-0.20) mg/mg Urine Sodium 35.9 mEq/L Urine Total Protein 184 H (1-14) mg/dL - Impressions Impressions Chest X-Ray 04/11/18 10:10 IMPRESSION: Low lung volumes. No definite acute cardiopulmonary findings. D/ / Rayne Steinberg MD / Rayne Steinberg MD Interpreting Provider: Rayne Steinberg MD Retroperitoneum Ultrasound 04/11/18 17:00 IMPRESSION: 1. No evidence of hydronephrosis. D/ / Nir Frausto MD / Nir Frausto MD Interpreting Provider: Nir Frausto MD Exam - Constitutional Vitals: Temp Pulse Resp BP Pulse Ox 99.0 F 66 18 134/81 93 04/12/18 06:21 04/12/18 06:21 04/12/18 06:21 04/12/18 06:21 04/12/18 06:21 General appearance: cooperative, morbidly obese, no acute distress - Head Head exam: Present: atraumatic, normal inspection, normocephalic - Eye Eye exam: Present: EOMI, normal appearance, PERRL Pupils: Present: normal accommodation - ENT ENT exam: Present: mucous membranes moist - Neck Neck exam: Present: normal inspection - Respiratory Respiratory exam: Present: CTAB. Absent: rales, respiratory distress, rhonchi, wheezes - Cardiovascular Cardiovascular exam: Present: RRR, +S1, +S2 - GI/Abdominal GI/Abdominal exam: Present: distended (obese), normal bowel sounds, soft. Absent: tenderness - Extremities Exam Extremities exam: Absent: joint swelling, pedal edema, tenderness Additional comments: Right foot post-op dressing C/D/I. - Neurological Exam Neurological exam: Present: alert, oriented X3, no focal deficits - Psychiatric Psychiatric exam: Present: normal affect, normal mood - Skin Skin exam: Present: dry, intact, normal color, warm Consult Discharge Plan - Plan Referrals: Dolly Garcia, PYTHON DEVELOPER [Primary Care Provider] - - Attending Attestation I examined this patient and my medical decision-making was reviewed with the Resident Physician. I agree with the documented findings, disposition and treatment plan as described except to the extent set forth below. Patient tells me that back in October he was here and he had an acute kidney injury due to antibiotics as well. I will review the chart.
[2018-04-12] MEDS: Gabapentin 300 MG CAPSULE PO SCH (10:16)
[2018-04-12] MEDS: Cyanocobalamin (B-12) 1,000 MCG TABLET PO SCH (10:17)
[2018-04-12] MEDS: ARIPiprazole 10 MG TABLET PO SCH (10:17)
[2018-04-12] MEDS: Insulin DETEMIR 100 UNIT/ML X5UNITS SQ SCH ×3 (10:18→20:51)
[2018-04-12] MEDS ORDERED: Vancomycin 1,000 MG, Sodium Chloride IRRigation 1,000 ML IR ONE (14:00)
--- NOTE | 2018-04-12 14:41 | Nephrology Progress Note ---
<Sandy Jean - Last Filed: 04/12/18 14:36> Date of Encounter: 04/12/18 Time of Encounter: 14:36 - Assessment and Plan (1) YESENIA (acute kidney injury) Current Visit: Yes Status: Acute Patient was on IV Vancomycin for RLE infection with worsening Scr and GFR. No kidney disease at baseline, did have YESENIA in October of last year with full renal recovery. Scr 6.2 and GFR 8 today. Consult for IR placed for temporary HD line. Continue to renal dose all medications and avoid nephrotoxins. Serum labs and urine labs ordered for today to rule out other processes. Renal biopsy could be a possibility. RLE surgery on hold until renal function normalizes. (2) Abscess of right foot Current Visit: Yes Status: Acute Per podiatry. (3) Diabetic foot ulcer Current Visit: Yes Status: Acute See above. Qualifiers: Diabetic foot ulcer location: heel Diabetes mellitus type: type 2 Laterality: right Non-pressure ulcer stage: unspecified non-pressure ulcer stage Qualified Code(s): E11.621 - Type 2 diabetes mellitus with foot ulcer; L97.419 - Non-pressure chronic ulcer of right heel and midfoot with unspecified severity (4) Hyponatremia syndrome Current Visit: Yes Status: Acute NA 128. Subjective Principal diagnosis: RLE swelling/bleeding Interval history: Pt seen and examined with Dr. Mccallum. No signs of distress. No c/o of nausea /vomiting/diarrhea. Objective - Vital Signs Vital signs: Vital Signs Temp Pulse Resp BP Pulse Ox 04/12/18 14:25 99.5 F 59 18 130/77 92 04/12/18 11:38 98.2 F 62 18 117/71 93 04/12/18 06:21 99.0 F 66 18 134/81 93 04/12/18 04:01 98 F 87 15 132/80 97 04/11/18 23:28 98.9 F 72 14 131/79 94 04/11/18 20:48 98.0 F 75 16 123/79 96 04/11/18 15:50 16 98 04/11/18 14:47 97.9 F 70 16 149/76 93 Intake and Output 04/11/18 04/12/18 04/12/18 23:59 07:59 15:59 Intake Total 500 / 500 1000 / 1000 0 / 0 Output Total 50 / 50 0 / 0 0 / 0 Balance 450 / 450 1000 / 1000 0 / 0 Intake: IV Fluids 500 / 500 1000 / 1000 0.9 % Sodium Chloride 1,000 ML 400 / 400 1000 / 1000 @ 75 mls/hr IVC .[id number] Rx #:[id number] Zosyn 3.375 GM In 0.9 % Sodium 100 / 100 Chloride (Mini-Bag +) 100 ML @ 25 mls/hr IVPB Q12H [facility] Rx#: [id number] Oral 0 / 0 Output: Urine 50 / 50 0 / 0 0 / 0 Other: Meal Lunch Percent of Meal Consumed 100% # Bowel Movements 0 0 Weight 186.4 kg Blood Glucose* 181 200 246 Patient Weight 04/12/18 23:59 Weight 186.4 kg - General Appearance General appearance: Present: well-developed, well-nourished, appears started age EENT: Present: ATNC, hearing intact, vision intact Neck: Present: supple Respiratory: Present: clear Cardiology: Present: no edema, normal S1, normal S2 Gastrointestinal: Present: normoactive bowel sounds, no tenderness, no guarding Integumentary: Present: no rash, warm and dry Neurologic: Present: alert and oriented x3 Additional Comments: RLE Rudy C/D/I. Psychiatric: Present: mood/affect appropriate, cooperative - Lab 04/12/18 08:56 04/12/18 08:56 Most recent lab results Calcium 7.8 mg/dL (8.6-10.3) L 04/12/18 08:56 Phosphorus 5.3 mg/dL (2.7-4.5) H 04/12/18 08:56 Magnesium 1.8 mg/dL (1.6-2.6) 04/12/18 08:56 Urine Creatinine 140 mg/dL 04/11/18 14:50 Urine Sodium 35.9 mEq/L 04/11/18 14:50 Urine Total Protein 184 mg/dL (1-14) H 04/11/18 14:50 Consult Discharge Plan - Plan Referrals: Agueda Rahman EMPLOYEE COMMUNICATIONS COORDINATOR [Advanced Practice Nurse] - 05/09/18 8:40 am Dolly Garcia CNP [Primary Care Provider] - <Mykel Webb - Last Filed: 04/22/18 08:52> Date of Encounter: 04/12/18 - Assessment and Plan (1) YESENIA (acute kidney injury) Current Visit: Yes Status: Acute (2) Osteomyelitis Current Visit: Yes Status: Acute Qualifiers: Osteomyelitis type: other acute Osteomyelitis location: foot Laterality: right Qualified Code(s): M86.171 - Other acute osteomyelitis, right ankle and foot (3) Sepsis Current Visit: Yes Status: Resolved Qualifiers: Sepsis type: sepsis due to unspecified organism Qualified Code(s): A41.9 - Sepsis, unspecified organism Objective - Vital Signs Vital signs: Vital Signs Temp Pulse Resp BP Pulse Ox 04/22/18 07:19 97.4 F L 55 18 134/82 93 04/22/18 03:42 98.0 F 53 19 151/81 95 04/21/18 23:29 97.6 F 56 22 151/72 95 04/21/18 19:35 97.6 F 74 21 186/76 94 04/21/18 15:23 98.1 F 61 17 146/75 93 04/21/18 11:26 98.0 F 86 18 115/72 92 Intake and Output 04/21/18 04/22/18 04/22/18 23:59 07:59 15:59 Intake Total 260 / 260 Output Total 665 / 665 Balance -405 / -405 - / -15 Intake: IV Fluids Rocephin 2,000 MG In Water for inj. (sterile) 20 ML @ 600 mls/ hr IVP DAILY [facility] Rx#:[id number] Oral 240 / 240 Output: Catheter 650 / 650 0 / 0 Urethral (Latif) 450 / 450 Wound Drainage Right Foot Other: Meal Dinner Percent of Meal Consumed 100% Stool Size Small Stool Consistency soft Stool Color Brown # Bowel Movements 1 0 Weight 187.9 kg Blood Glucose* 228 154 Patient Weight 04/22/18 23:59 Weight 187.9 kg - Lab 04/22/18 04:38 04/22/18 04:38 Most recent lab results Calcium 8.9 mg/dL (8.6-10.3) 04/22/18 04:38 Phosphorus 5.3 mg/dL (2.7-4.5) H 04/12/18 08:56 Magnesium 1.8 mg/dL (1.6-2.6) 04/12/18 08:56 Urine Creatinine 140 mg/dL 04/11/18 14:50 Urine Sodium 35.9 mEq/L 04/11/18 14:50 Urine Total Protein 184 mg/dL (1-14) H 04/11/18 14:50 - Attending Attestation I examined this patient and my medical decision-making was reviewed with the Resident Physician/EMPLOYEE COMMUNICATIONS COORDINATOR. I agree with the documented findings, disposition and treatment plan as described except to the extent set forth below. Pt seen and examined with interim events noted; worsening Yesenia in the setting on recent vanco and sepsis with SCr now at 6.2, GFR 8 with poor UOP around 150cc in the past 24hrs. Discussed with pt poor renal fxn and the need for SHIP SUPERINTENDENT if any worse. Pt agreeable to temp IJ HD catheter today and possible SHIP SUPERINTENDENT planned tomorrow. Continue to avoid nephrotoxins if possible.
--- NOTE | 2018-04-12 16:20 | Podiatry Progress Note ---
Date of Encounter: 04/12/18 Time of Encounter: 12:00 - Assessment and Plan (1) Osteomyelitis Current Visit: Yes Status: Acute s/p incision and drainage of right ankle/foot, removal of right ankle/foot hardware, bone biopsy talus, bone biopsy navicular per on 04/09/18 Patient was planned for return to OR today for second washout Elevated creatine, 4.1, will hold off on surgical intervention until more medically stable Possibly Sunday Nephrology has been consulted ID following, recommendations appreciated To remain NWB Dressing change orders placed, posterior splint will need to be reapplied, please follow wound care orders Await intra op cultures Qualifiers: Osteomyelitis type: other acute Osteomyelitis location: foot Laterality: right Qualified Code(s): M86.171 - Other acute osteomyelitis, right ankle and foot (2) Charcot foot due to diabetes mellitus Current Visit: No Status: Acute Subjective Principal diagnosis: RLE swelling/bleeding Interval history: Mr. Bowen is a 47 year old diabetic male with previous surgery for his right foot/ankle charcot. He developed infection of the right foot and underwent incision and drainage of right ankle/foot, removal of right ankle/foot hardware , bone biopsy talus, bone biopsy navicular per on 04/09/18 Patient resting comfortably in bed at this time. Denies any pain. Dressing was changed this AM and is clean dry and intact. Patient denies any fevers, chills , n/v or flu like symptoms. Objective - Vital Signs Vital Signs: Vital Signs Temp Pulse Resp BP Pulse Ox 04/12/18 14:25 99.5 F 59 18 130/77 92 04/12/18 11:38 98.2 F 62 18 117/71 93 04/12/18 06:21 99.0 F 66 18 134/81 93 04/12/18 04:01 98 F 87 15 132/80 97 04/11/18 23:28 98.9 F 72 14 131/79 94 04/11/18 20:48 98.0 F 75 16 123/79 96 Intake and Output 04/12/18 04/12/18 04/12/18 07:59 15:59 23:59 Intake Total 1000 / 1000 0 / 0 Output Total 0 / 0 0 / 0 Balance 1000 / 1000 0 / 0 Intake: IV Fluids 1000 / 1000 0.9 % Sodium Chloride 1,000 ML 1000 / 1000 @ 75 mls/hr IVC .[id number] [facility] Rx #:[id number] Oral 0 / 0 Output: Urine 0 / 0 0 / 0 Other: Meal Lunch Percent of Meal Consumed 100% # Bowel Movements 0 Weight 186.4 kg Blood Glucose* 200 200 Patient Weight 04/12/18 23:59 Weight 186.4 kg - Exam Exam: Toes warm to touch Minimal sensation- known neuropathy Cap refill <3 seconds Movement of toes intact Will leave dressing intact, was recently changed No calf pain with manual compression - Lab Result Diagrams: 04/12/18 08:56 04/12/18 08:56 Labs: Abnormal lab results RBC 2.94 M/mcL (4.19-5.50) L 04/12/18 08:56 Hgb 8.5 g/dL (12.9-16.9) L 04/12/18 08:56 Hct 24.9 % (37.5-50.1) L 04/12/18 08:56 Metamyelocytes % 2.0 % (0) H 04/11/18 08:13 Nucleated RBCs/100 WBC 0.2 /100 WBC (0) H 04/12/18 08:56 ESR 106 mm/hr (0-10) H 04/08/18 18:00 PT 12.8 Seconds (9.4-12.1) H 04/08/18 11:37 Sodium 128 mEq/L (136-145) L 04/12/18 08:56 Carbon Dioxide 21 mEq/L (23-29) L 04/12/18 08:56 BUN 47 mg/dL (6-20) H 04/12/18 08:56 Creatinine 6.20 mg/dL (0.70-1.30) H 04/12/18 08:56 Est GFR ( Amer) 12 (> 60) L 04/12/18 08:56 Est GFR (Non-Af Amer) 10 (> 60) L 04/12/18 08:56 Glucose 206 mg/dL (70-105) H 04/12/18 08:56 POC Glucose 200 mg/dL (70-99) H 04/12/18 15:57 Hemoglobin A1c 9.4 % (-5.6) H 04/09/18 06:56 Calcium 7.8 mg/dL (8.6-10.3) L 04/12/18 08:56 Phosphorus 5.3 mg/dL (2.7-4.5) H 04/12/18 08:56 Creatine Kinase 1139 Units/L (30-223) H 04/11/18 12:57 C-Reactive Protein > 300 mg/L (Less than 10) H 04/08/18 18:00 Urine Clarity Turbid (Clear) A 04/11/18 14:50 Urine Protein 100 mg/dL (Neg-Trace) H 04/11/18 14:50 Urine Glucose (UA) 100 mg/dL (Normal) H 04/11/18 14:50 Urine Blood Large (Negative) H 04/11/18 14:50 Urine Microscopic RBC 5-15 per hpf (0-3) H 04/11/18 14:50 Urine Microscopic WBC 30-50 per hpf (0-3) H 04/11/18 14:50 Ur Squamous Epith Cells Many per lpf (None-Few) H 04/11/18 14:50 Amorphous Sediment Moderate (Few) H 04/11/18 14:50 Protein/Creatinin Ratio 1.31 mg/mg (0.00-0.20) H 04/11/18 14:50 Urine Total Protein 184 mg/dL (1-14) H 04/11/18 14:50 Vancomycin Trough 30 mcg/mL (5-10) H 04/10/18 12:44 Microbiology, Last 48 Hours 04/09/18 23:09 Wound Culture - Preliminary Right Foot Staphylococcus aureus Consult Discharge Plan - Plan Referrals: Dolly Garcia, WILMAN [Primary Care Provider] -
--- NOTE | 2018-04-12 17:11 | Internal Med Progress Note ---
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 [employer] Leadperson was consulted, plan was to take the patient to OR for washout and readjust hardware. Hospitalist will continue manage the infection. - Blood culture, wound culture sent, patient received Zosyn and vancomycin at the ED. - Continue antibiotics, consult ID tomorrow. - Podiatry following. 04/09: Day #2 Zosyn/Vancomycin. I&D this afternoon 04/10: Postop day 1. Awaiting cultures. Vancomycin is stopped for now. We restarted if MRSA grows out. Patient is day #3 IV Zosyn. Anticipate he will need 6 weeks of IV antibiotics, as indicated by infectious disease note. Will need a PICC line at discharge, will consult VAT prior to that time 04/11: I discussed the case with Agueda Rahman and infectious disease. She will continue on IV Zosyn, renally dosed. Currently day #4 and anticipate a 6 week course. We are awaiting cultures. 04/12: Day #5 renally dosed Zosyn. Antibiotics as directed by infectious disease. Await final culture data (2) Osteomyelitis Current Visit: Yes Status: Acute Assessment and plan: X-ray of right foot revealed possible osteomyelitis, patient received Zosyn and vancomycin at ED, cultures sent, will continue current antibiotics, will consult ID tomorrow. 04/09: Await I&D, abx as described above 04/11: As discussed above. (3) HTN (hypertension) Current Visit: No Status: Chronic Assessment and plan: BP controlled, continue home medication. 04/11: Blood pressure improved. Beta charmaine restarted. Monitor 04/12: Reasonable blood pressure control (4) DM2 (diabetes mellitus, type 2) Current Visit: No Status: Acute Assessment and plan: Poorly controlled diabetes, continue home dose of long-acting insulin, decrease the dose of bolus insulin before each meal, started patient on insulin sliding scale. 04/09: Blood sugars are elevated today. As to further adjust just yet given the fact that he is nothing by mouth for surgery. We will continue to monitor. 04/10: Levemir increased for elevated blood sugars.. Continue sliding scale. Monitor 04/11: Levemir further increased to 55 units subcutaneous twice a day for persistently elevated blood sugars. Continue to monitor. 04/12: Glycemic control is improving. Monitor. (5) CKD (chronic kidney disease) Current Visit: No Status: Chronic Assessment and plan: Creatinine at the baseline, continue monitoring. Continue IV fluid. Avoid nephrotoxins as best able 04/10: Now with acute kidney injury. Avoid nephrotoxins. Vancomycin is held. Continue IV fluids. Recheck BMP in the morning. 04/11: Creatinine continues to worsen. Nephrology is consulted. I discussed the case with nephrology. Suspect this is due to vancomycin-induced nephropathy, plus recent sepsis and hypotension. Continue to avoid nephrotoxins. Renal ultrasound is ordered. Closely monitor. No indication for acute dialysis, although I am concerned of his volume status given the fluids he is received and the fact that he remains anuric. We will continue to closely monitor. 04/12: Patient with acute kidney injury, anuric renal failure. Superimposed on chronic kidney disease stage III. Nephrology input is appreciated. Hemodialysis today. Monitor. Avoid all nephrotoxins. I discussed the case with nephrology, Dr. Jack today. (6) Hyponatremia syndrome Current Visit: Yes Status: Acute (7) Sepsis Current Visit: Yes Status: Acute Assessment and plan: Patient had a fever, WBC elevated, likely infection of her right foot. Blood culture and wound culture sent. Lactic acid is normal. Continue IV fluid. Continue current antibiotics. ID consult tomorrow. 04/09: Sepsis resolving 04/10: Patient was mildly hypotensive today. IV fluids were given. He has improved. We will continue to monitor. He is status post IND. White blood cell count is now normal. 04/11: Sepsis resolving (8) Hypomagnesemia Current Visit: Yes Status: Acute (9) NEHEMIAH (obstructive sleep apnea) Current Visit: No Status: Acute Assessment and plan: On CPAP, compliant in hospital - Time Spent With Patient Total time spent is greater than 50% in coordination of care (as documented) at patient's floor/unit and/or counseling patient: 25 - 35 minutes - Subjective Interval history: Chief complaint right foot pain HPI: A 47-year-old male with a history of morbid obesity, sleep apnea on CPAP type 2 diabetes mellitus insulin requiring, hypertension, hyperlipidemia, chronic easy stage III, and right Charcot foot. Patient was admitted on April 08 with a complaint of right foot pain, ulcer and bleeding. pt had a blister initially at his Right foot lateral border of the heel, which ruptured and subsequently head bleeding and pus drainage. Patient presented to the emergency room where he was diagnosed with right foot infection with associated heel abscess for which he is planned to undergo I&D today. A she has been seen by both podiatry and infectious disease. Patient did have x-rays of his right foot which showed erosions at the talus and navicularis. Concerning for osteomyelitis. Sedimentation rate was 106, CRP was greater than 300. She is currently day #2 of IV antibiotics, currently Zosyn and vancomycin. Altered data is pending. Pt's other medical issues presently are stable. He is awaiting Podiatric Surgery today. She is denying any fevers or chills. No chest pain or shortness of breath. No nausea, vomiting, diarrhea. 04/10: Postop day #1 incision and drainage of right ankle and foot with removal of hardware, and biopsies taken of talus and navicular bone. Cultures pending. Os operative course has been complicated by low blood pressures late morning. His Lopressor was held. He was given fluids. Blood pressure has improved as of this time 2/90 systolic. Patient states he is feeling well. Denies any chest pain or shortness of breath. No nausea, vomiting, diarrhea. No fevers or chills. She also noted to have acute kidney injury now with a creatinine of 2.48, with his level on admission being 1.34. 04/11: Patient continues to be Anuric despite IV fluids. Creatinine is increased to 4.05. Potassium remains normal. Serum bicarbonate of 20, sodium 128. Patient states he is feeling okay. Denies any chest pain or shortness of breath. No nausea, vomiting, diarrhea. No fevers or chills. Nephrology is consulted. 04/12: Remains anuric. Potassium is 3.9. Creatinine 6.2. Serum bicarbonate of 21. Phosphorus is elevated at 5.3. Nephrology is evaluating and is planning on first run of hemodialysis today. Patient is denying any chest pain or shortness of breath. No nausea, vomiting, diarrhea. No fevers or chills. Podiatry surgery is temporarily on hold. - Constitutional Vitals: Temp Pulse Resp BP Pulse Ox 99.5 F 59 18 130/77 92 04/12/18 14:25 04/12/18 14:25 04/12/18 14:25 04/12/18 14:25 04/12/18 14:25 General appearance: Present: A&O X 3, morbidly obese, no acute distress - Head Head exam: Present: atraumatic, normocephalic - Eye Eye exam: Present: PERRL, conjuntiva pink, sclera anicteric Pupils: Present: PERRL - Neck Neck exam general surgery: Present: supple, trachea midline. Absent: lymphadenopathy - Respiratory Respiratory exam: Present: decreased breath sounds. Absent: accessory muscle use, rhonchi, wheezes - Cardiovascular Cardiovascular exam: Present: RRR, +S1, +S2. Absent: diastolic murmur, gallop, rubs, systolic murmur - GI/Abdominal GI/Abdominal exam: Present: normal bowel sounds, soft, no peritoneal signs. Absent: distended, tenderness - Extremities Exam Extremities exam: Present: pedal edema, warm, radial pulses palpable and symmetrical. Absent: calf tenderness, cyanotic Additional comments: Right foot is dressed - Neurological Exam Neurological exam: Present: CN II-XII intact, oriented X3, no focal deficits. Absent: pronater drift, facial droop, speech deficit - Skin Skin exam: Present: dry, intact Internal Medicine: Result - Labs CBC & Chem 7: 04/12/18 08:56 04/12/18 08:56 Labs: Short CBC 04/12/18 Range/Units 08:56 WBC 9.8 (4.3-11.1) K/mcL Hgb 8.5 L (12.9-16.9) g/dL Hct 24.9 L (37.5-50.1) % Plt Count 289 (140-400) K/mcL Neutrophils # 6.5 (1.6-8.9) K/mcL BMP 04/12/18 08:56 Sodium 128 L Potassium 3.9 Chloride 99 Carbon Dioxide 21 L BUN 47 H Creatinine 6.20 H Glucose 206 H Calcium 7.8 L - ABG Interpretation ABG results: PT/INR, D-dimer PT 12.8 Seconds (9.4-12.1) H 04/08/18 11:37 - Impressions Impressions Retroperitoneum Ultrasound 04/11/18 17:00 IMPRESSION: 1. No evidence of hydronephrosis. D/ / Nir Frausto MD / Nir Frausto MD Interpreting Provider: Nir Frausto MD Consult Discharge Plan - Plan Referrals: Dolly Garcia, ORACLE DBA [Primary Care Provider] -
[2018-04-12] MEDS ORDERED: *HR* Heparin 5,000 UNIT/ML VIAL ONE (17:33)
--- NOTE | 2018-04-12 18:02 | IR Procedure Note ---
Date of procedure: 04/12/18 Consent Obtained: Written consent Timeout: Correct patient and procedure verified, Correct site verified, Time out performed, Skin prep completed Local anesthetic: Lidocaine 1% Indications: Renal insufficency Procedure Performed: Temp HD placement Was there an rn first assistant present: No Site/Technique: RIJV access. Temp HD catheter placement. Results/Findings: Working well. No immediate complications. Estimated blood loss (cc): 2 Complications: None; Tolerated procedure well Post Procedure Treatment Plan: Monitoring on the floor. CXR pending. Specimen: N/a
[2018-04-13] MEDS: *HR* Heparin 5,000 UNIT/ML VIAL SQ SCH ×4 (04:07→22:59)
[2018-04-13] MEDS: Piperacillin/Tazobactam 3.375 GM in 0.9 % Sodium Chloride Mini Bag 100 ML IVPB SCH ×2 (05:05→19:02)
[2018-04-13] MEDS: Insulin LISPRO 300 UNITS/3 ML VIAL SQ SCH ×4 (07:40→22:01)
[2018-04-13] MEDS ORDERED: 0.9 % Sodium Chloride 250 ML IVC PRN (09:08)
[2018-04-13] MEDS: ARIPiprazole 10 MG TABLET PO SCH (09:11)
[2018-04-13] MEDS: Gabapentin 300 MG CAPSULE PO SCH (09:13)
[2018-04-13] MEDS: Cyanocobalamin (B-12) 1,000 MCG TABLET PO SCH (09:14)
[2018-04-13] MEDS ORDERED: 0.9 % Sodium Chloride 1,000 ML PRIME SCH (09:15)
[2018-04-13 10:49] LABS: Hepatitis B Surface Antigen Nonreactive (Nonreactive)
--- NOTE | 2018-04-13 11:35 | Nephrology Progress Note ---
Date of Encounter: 04/13/18 Time of Encounter: 12:00 - Assessment and Plan (1) YESENIA (acute kidney injury) Current Visit: Yes Status: Acute No new labs today but SCr likely worse given UOP of only 250cc in the past 24hrs. YESENIA possible due to the combo of vanco/zosyn known to cause AKIs but vanco npw stopped and zosyn renally dosed. sepsis can also cause Yesenia in this picture and more remotely, infectious GN, workup pending. Mild rhabdo also noted , will followup CPK level. At this point has ATN, will initiate HD for clearance and fluid removal. May need renal biopsy next week if no improvement (2) Osteomyelitis Current Visit: Yes Status: Acute Per podiatry, OR delayed due to renal issue Qualifiers: Osteomyelitis type: other acute Osteomyelitis location: foot Laterality: right Qualified Code(s): M86.171 - Other acute osteomyelitis, right ankle and foot (3) Sepsis Current Visit: Yes Status: Resolved ID on board Qualifiers: Sepsis type: sepsis due to unspecified organism Qualified Code(s): A41.9 - Sepsis, unspecified organism Subjective Principal diagnosis: RLE swelling/bleeding Interval history: Pt seen and examined on HD with no new complaints Objective - Vital Signs Vital signs: Vital Signs Temp Pulse Resp BP Pulse Ox 04/13/18 07:05 97.9 F 65 16 135/82 94 04/13/18 04:17 99.3 F 66 16 129/67 93 04/12/18 20:22 97.9 F 67 18 130/76 93 04/12/18 14:25 99.5 F 59 18 130/77 92 04/12/18 11:38 98.2 F 62 18 117/71 93 Intake and Output 04/12/18 04/13/18 04/13/18 23:59 07:59 15:59 Intake Total 340 / 340 100 / 100 520 / 520 Output Total 250 / 250 Balance 90 / 90 100 / 100 520 / 520 Intake: IV Fluids 100 / 100 Zosyn 3.375 GM In 0.9 % Sodium 100 / 100 Chloride (Mini-Bag +) 100 ML @ 25 mls/hr IVPB Q12H [facility] Rx#: [id number] Oral 340 / 340 520 / 520 Output: Urine 250 / 250 Other: Meal Dinner Breakfast Percent of Meal Consumed 100% 100% # Voids 1 Weight 189.2 kg Blood Glucose* 209 224 Patient Weight 04/13/18 23:59 Weight 189.2 kg - General Appearance General appearance: Present: well-developed, well-nourished EENT: Present: ATNC, mucous membranes moist Neck: Present: no JVD, supple Respiratory: Present: clear Cardiology: Present: no edema, normal S1, normal S2 Dialysis Vascular Access: Venous Catheter (temp IJ catheter) Gastrointestinal: Present: no tenderness, no guarding Integumentary: Present: warm and dry Neurologic: Present: no focal deficit Musculoskeletal: Present: no deformities Psychiatric: Present: mood/affect appropriate - Lab 04/22/18 04:38 04/22/18 04:38 Most recent lab results Calcium 7.8 mg/dL (8.6-10.3) L 04/12/18 08:56 Phosphorus 5.3 mg/dL (2.7-4.5) H 04/12/18 08:56 Magnesium 1.8 mg/dL (1.6-2.6) 04/12/18 08:56 Urine Creatinine 140 mg/dL 04/11/18 14:50 Urine Sodium 35.9 mEq/L 04/11/18 14:50 Urine Total Protein 184 mg/dL (1-14) H 04/11/18 14:50 Consult Discharge Plan - Plan Referrals: Agueda Rahman CNP [Advanced Practice Nurse] - 05/09/18 8:40 am Dolly Garcia CNP [Primary Care Provider] -
--- NOTE | 2018-04-13 13:30 | Internal Med Progress Note ---
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 Deputy District Customs Director was consulted, plan was to take the patient to OR for washout and readjust hardware. Hospitalist will continue manage the infection. - Blood culture, wound culture sent, patient received Zosyn and vancomycin at the ED. - Continue antibiotics, consult ID tomorrow. - Podiatry following. 04/09: Day #2 Zosyn/Vancomycin. I&D this afternoon 04/10: Postop day 1. Awaiting cultures. Vancomycin is stopped for now. We restarted if MRSA grows out. Patient is day #3 IV Zosyn. Anticipate he will need 6 weeks of IV antibiotics, as indicated by infectious disease note. Will need a PICC line at discharge, will consult VAT prior to that time 04/11: I discussed the case with gAueda Rahman and infectious disease. She will continue on IV Zosyn, renally dosed. Currently day #4 and anticipate a 6 week course. We are awaiting cultures. 04/13: Day #6 renally dosed Zosyn. Antibiotics as directed by infectious disease. Await final culture data (2) Osteomyelitis Current Visit: Yes Status: Acute Assessment and plan: X-ray of right foot revealed possible osteomyelitis, patient received Zosyn and vancomycin at ED, cultures sent, will continue current antibiotics, will consult ID tomorrow. 04/09: Await I&D, abx as described above 04/11: As discussed above. (3) HTN (hypertension) Current Visit: No Status: Chronic Assessment and plan: BP controlled, continue home medication. 04/11: Blood pressure improved. Beta charmaine restarted. Monitor 04/13: Reasonable blood pressure control (4) DM2 (diabetes mellitus, type 2) Current Visit: No Status: Acute Assessment and plan: Poorly controlled diabetes, continue home dose of long-acting insulin, decrease the dose of bolus insulin before each meal, started patient on insulin sliding scale. 04/09: Blood sugars are elevated today. As to further adjust just yet given the fact that he is nothing by mouth for surgery. We will continue to monitor. 04/10: Levemir increased for elevated blood sugars.. Continue sliding scale. Monitor 04/11: Levemir further increased to 55 units subcutaneous twice a day for persistently elevated blood sugars. Continue to monitor. 04/12: Glycemic control is improving. Monitor. (5) CKD (chronic kidney disease) Current Visit: No Status: Chronic Assessment and plan: Creatinine at the baseline, continue monitoring. Continue IV fluid. Avoid nephrotoxins as best able 04/10: Now with acute kidney injury. Avoid nephrotoxins. Vancomycin is held. Continue IV fluids. Recheck BMP in the morning. 04/11: Creatinine continues to worsen. Nephrology is consulted. I discussed the case with nephrology. Suspect this is due to vancomycin-induced nephropathy, plus recent sepsis and hypotension. Continue to avoid nephrotoxins. Renal ultrasound is ordered. Closely monitor. No indication for acute dialysis, although I am concerned of his volume status given the fluids he is received and the fact that he remains anuric. We will continue to closely monitor. 04/12: Patient with acute kidney injury, anuric renal failure. Superimposed on chronic kidney disease stage III. Nephrology input is appreciated. Hemodialysis today. Monitor. Avoid all nephrotoxins. I discussed the case with nephrology, Dr. Jack today. (6) Hyponatremia syndrome Current Visit: Yes Status: Acute Assessment and plan: Unknown etiology, continue IV fluid, repeat BMP in a.m. 04/09: Patient's hyponatremia is secondary to hypernatremia, " pseudohyponatremia " May also be a component of hypovolemic hyponatremia. Monitor. Sodium is improving. 04/11: Sodium 128 today. Not particularly changed from yesterday. Continue to monitor. Nephrology input is appreciated 04/13: Repeat sodium pending. (7) Sepsis Current Visit: Yes Status: Acute Assessment and plan: Patient had a fever, WBC elevated, likely infection of her right foot. Blood culture and wound culture sent. Lactic acid is normal. Continue IV fluid. Continue current antibiotics. ID consult tomorrow. 04/09: Sepsis resolving 04/10: Patient was mildly hypotensive today. IV fluids were given. He has improved. We will continue to monitor. He is status post IND. White blood cell count is now normal. 04/13: Sepsis resolving (8) Hypomagnesemia Current Visit: Yes Status: Acute Assessment and plan: Replaced, check magnesium in a.m. 04/11: Improved (9) NEHEMIAH (obstructive sleep apnea) Current Visit: No Status: Acute Assessment and plan: On CPAP, compliant in hospital - Time Spent With Patient Total time spent is greater than 50% in coordination of care (as documented) at patient's floor/unit and/or counseling patient: 25 - 35 minutes - Subjective Interval history: Chief complaint right foot pain HPI: A 47-year-old male with a history of morbid obesity, sleep apnea on CPAP type 2 diabetes mellitus insulin requiring, hypertension, hyperlipidemia, chronic easy stage III, and right Charcot foot. Patient was admitted on April 08 with a complaint of right foot pain, ulcer and bleeding. pt had a blister initially at his Right foot lateral border of the heel, which ruptured and subsequently head bleeding and pus drainage. Patient presented to the emergency room where he was diagnosed with right foot infection with associated heel abscess for which he is planned to undergo I&D today. A she has been seen by both podiatry and infectious disease. Patient did have x-rays of his right foot which showed erosions at the talus and navicularis. Concerning for osteomyelitis. Sedimentation rate was 106, CRP was greater than 300. She is currently day #2 of IV antibiotics, currently Zosyn and vancomycin. Altered data is pending. Pt's other medical issues presently are stable. He is awaiting Podiatric Surgery today. She is denying any fevers or chills. No chest pain or shortness of breath. No nausea, vomiting, diarrhea. 04/10: Postop day #1 incision and drainage of right ankle and foot with removal of hardware, and biopsies taken of talus and navicular bone. Cultures pending. Os operative course has been complicated by low blood pressures late morning. His Lopressor was held. He was given fluids. Blood pressure has improved as of this time 2/90 systolic. Patient states he is feeling well. Denies any chest pain or shortness of breath. No nausea, vomiting, diarrhea. No fevers or chills. She also noted to have acute kidney injury now with a creatinine of 2.48, with his level on admission being 1.34. 5/31: Patient continues to be Anuric despite IV fluids. Creatinine is increased to 4.05. Potassium remains normal. Serum bicarbonate of 20, sodium 128. Patient states he is feeling okay. Denies any chest pain or shortness of breath. No nausea, vomiting, diarrhea. No fevers or chills. Nephrology is consulted. 04/12: Remains anuric. Potassium is 3.9. Creatinine 6.2. Serum bicarbonate of 21. Phosphorus is elevated at 5.3. Nephrology is evaluating and is planning on first run of hemodialysis today. Patient is denying any chest pain or shortness of breath. No nausea, vomiting, diarrhea. No fevers or chills. Podiatry surgery is temporarily on hold. 04/13: Still with minimal urine output, 50 mL signal last 24 hours. If allergy input appreciated. Patient currently states he notices a little bit of a wheeze at times. No chest pain or shortness of breath. No nausea or vomiting. No fevers or chills. First hemodialysis yesterday. - Constitutional Vitals: Temp Pulse Resp BP Pulse Ox 97.9 F 65 16 135/82 94 04/13/18 07:05 04/13/18 07:05 04/13/18 07:05 04/13/18 07:05 04/13/18 07:05 General appearance: Present: A&O X 3, morbidly obese, no acute distress - Head Head exam: Present: atraumatic, normocephalic - Eye Eye exam: Present: PERRL, conjuntiva pink, sclera anicteric Pupils: Present: PERRL - Neck Neck exam general surgery: Present: supple, trachea midline. Absent: lymphadenopathy - Respiratory Respiratory exam: Present: decreased breath sounds. Absent: accessory muscle use, rales, rhonchi, wheezes - Cardiovascular Cardiovascular exam: Present: RRR, +S1, +S2. Absent: diastolic murmur, gallop, rubs, systolic murmur - GI/Abdominal GI/Abdominal exam: Present: normal bowel sounds, soft, no peritoneal signs. Absent: distended, tenderness - Extremities Exam Extremities exam: Present: warm, radial pulses palpable and symmetrical. Absent : calf tenderness, cyanotic, pedal edema Additional comments: Right foot is covered with dressing - Neurological Exam Neurological exam: Present: CN II-XII intact, oriented X3, no focal deficits. Absent: pronater drift, facial droop, speech deficit - Skin Skin exam: Present: dry, intact Internal Medicine: Result - Labs CBC & Chem 7: 04/12/18 08:56 04/12/18 08:56 - ABG Interpretation ABG results: PT/INR, D-dimer PT 12.8 Seconds (9.4-12.1) H 04/08/18 11:37 - Impressions Impressions Guidance Needle Placement Ultrasound 04/12/18 00:00 IMPRESSION: Successful ultrasound-guided bedside placement of a temporary hemodialysis catheter as described above. D/ / Soy Morales MD / Soy Morales MD Interpreting Provider: Soy Morales MD Insertion Non-Tunneled Catheter 04/12/18 00:00 IMPRESSION: Successful ultrasound-guided bedside placement of a temporary hemodialysis catheter as described above. D/ / Soy Morales MD / Soy Morales MD Interpreting Provider: Soy Morales MD Chest X-Ray 04/12/18 17:59 IMPRESSION: Right IJ central line tip projects over the right atrium. D/ / Nir Muir MD / Nir Muir MD Interpreting Provider: Nir Muir MD Consult Discharge Plan - Plan Referrals: Dolly Garcia, SECURITIES ATTORNEY [Primary Care Provider] -
[2018-04-13] MEDS: traMADol 50 MG TABLET PO PRN ×2 (14:04→20:18)
[2018-04-13] MEDS: Insulin DETEMIR 100 UNIT/ML X5UNITS SQ SCH ×2 (14:12→20:19)
[2018-04-13 15:42] LABS: Basophils % 0.3 %; Eosinophils # 0.3 K/mcL (0.0-0.6); Eosinophils % 2.5 %; Hematocrit 26.1 % (37.5-50.1); Hemoglobin 8.8 g/dL (12.9-16.9); Immature Granulocytes % 6.9 % (0-4); Lymphocytes # 1.5 K/mcL (0.6-4.6); Mean Corpuscular HGB Conc 33.7 g/dL (31.6-35.5); Mean Corpuscular Hemoglobin 28.3 pg (28.0-33.3); Mean Corpuscular Volume 83.9 fL (83.0-100.0); Mean Platelet Volume 9.6 fL (9.4-12.4); Monocytes # 0.7 K/mcL (0.0-1.3); Monocytes % 6.5 %; Platelet Count 363 K/mcL (140-400); Red Blood Count 3.11 M/mcL (4.19-5.50); Red Cell Distribution Width 14.6 % (11.5-14.5); Segmented Neutrophils % 68.8 %
[2018-04-13 16:01] LABS: Calcium 8.1 mg/dL (8.6-10.3)
[2018-04-13 16:44] LABS: Platelet Estimate Normal (Normal)
[2018-04-14 05:56] LABS: Calcium 7.8 mg/dL (8.6-10.3); Potassium 4.4 mEq/L (3.5-5.1)
[2018-04-14] MEDS: Piperacillin/Tazobactam 3.375 GM in 0.9 % Sodium Chloride Mini Bag 100 ML IVPB SCH ×2 (06:04→17:50)
[2018-04-14] MEDS: traMADol 50 MG TABLET PO PRN ×3 (06:12→18:06)
[2018-04-14] MEDS: Cyanocobalamin (B-12) 1,000 MCG TABLET PO SCH (07:37)
[2018-04-14] MEDS: ARIPiprazole 10 MG TABLET PO SCH (07:37)
[2018-04-14] MEDS: Gabapentin 300 MG CAPSULE PO SCH (07:37)
[2018-04-14] MEDS: *HR* Heparin 5,000 UNIT/ML VIAL SQ SCH ×2 (07:38→17:50)
[2018-04-14] MEDS: Insulin LISPRO 300 UNITS/3 ML VIAL SQ SCH ×4 (07:43→20:46)
[2018-04-14] MEDS: Acetaminophen 325 MG TABLET PO PRN (07:47)
[2018-04-14] MEDS: Insulin DETEMIR 100 UNIT/ML X5UNITS SQ SCH ×2 (07:48→20:45)
--- NOTE | 2018-04-14 12:09 | Nephrology Progress Note ---
Date of Encounter: 04/14/18 Time of Encounter: 12:00 - Assessment and Plan (1) YESENIA (acute kidney injury) Status: Acute SCr worsening at 6.64, GFR 9 s/p 2hr HD session yesterday, will plan for another tomorrow No UOP documented but net 2liters removed via HD Continue to avoid nephrotoxins if possible Await workup results (2) Osteomyelitis Status: Acute Per podiatry, OR delayed due to renal issue Qualifiers: Osteomyelitis type: other Osteomyelitis location: foot Laterality: right Qualified Code(s): M86.8X7 - Other osteomyelitis, ankle and foot (3) Sepsis Status: Resolved ID on board Qualifiers: Sepsis type: methicillin susceptible Staphylococcus aureus Qualified Code(s ): A41.01 - Sepsis due to Methicillin susceptible Staphylococcus aureus Subjective Principal diagnosis: RLE swelling/bleeding Interval history: Pt seen and examined with no new complaints Objective - Vital Signs Vital signs: Vital Signs Temp Pulse Resp BP Pulse Ox 04/14/18 11:07 98.1 F 52 17 116/73 94 04/14/18 07:13 98.5 F 57 16 144/77 94 04/14/18 04:53 98.8 F 58 16 134/72 98 04/13/18 23:00 99.0 F 59 16 113/68 94 04/13/18 19:11 98.0 F 61 16 124/69 93 04/13/18 16:02 98.3 F 56 22 135/72 95 04/13/18 15:00 98.3 F 56 16 135/72 95 04/13/18 13:50 98.5 F 20 127/67 04/13/18 13:20 125/65 04/13/18 13:05 148/60 04/13/18 12:50 142/67 04/13/18 12:35 127/53 04/13/18 12:20 129/64 04/13/18 12:05 129/61 Intake and Output 04/13/18 04/14/18 04/14/18 23:59 07:59 15:59 Intake Total 160 / 160 300 / 300 220 / 220 Output Total 0 / 0 0 / 0 Balance 160 / 160 300 / 300 220 / 220 Intake: IV Fluids 100 / 100 100 / 100 Zosyn 3.375 GM In 0.9 % Sodium 100 / 100 100 / 100 Chloride (Mini-Bag +) 100 ML @ 25 mls/hr IVPB Q12H [facility] Rx#: [id number] Oral 60 / 60 300 / 300 120 / 120 Output: Urine 0 / 0 0 / 0 Other: Weight 188 kg Blood Glucose* 271 190 190 Patient Weight 04/14/18 23:59 Weight 188 kg - General Appearance General appearance: Present: well-developed, well-nourished EENT: Present: ATNC, mucous membranes moist Neck: Present: no JVD, supple Respiratory: Present: clear (ant bilat) Cardiology: Present: no edema, normal S1, normal S2 Dialysis Vascular Access: Venous Catheter (temp IJ catheter) Gastrointestinal: Present: no tenderness, no guarding, obese Integumentary: Present: warm and dry Neurologic: Present: no focal deficit Musculoskeletal: Present: no deformities Psychiatric: Present: mood/affect appropriate, cooperative - Lab 05/03/18 05:36 05/03/18 05:36 Most recent lab results Calcium 7.8 mg/dL (8.6-10.3) L 04/14/18 04:49 Phosphorus 5.3 mg/dL (2.7-4.5) H 04/12/18 08:56 Magnesium 1.8 mg/dL (1.6-2.6) 04/12/18 08:56 Urine Creatinine 140 mg/dL 04/11/18 14:50 Urine Sodium 35.9 mEq/L 04/11/18 14:50 Urine Total Protein 184 mg/dL (1-14) H 04/11/18 14:50 Consult Discharge Plan - Plan Instructions: Diabetes Mellitus Type 2 in Adults (DC), Chronic Hypertension (DC ) Referrals: Russell Mercer DPM [Partnered Physician] - 05/09/18 7:30 am (In wound care clinic in 1 week after discharge. Appt. made and [facility] [place] was called with date and time. Thank you) Agueda Rahman, [employer] [Advanced Practice Nurse] - 05/09/18 8:40 am Prescriptions: cefTRIAXone [Rocephin] 2,000 mg IVPB DAILY #32 vial Gabapentin [Neurontin] 100 mg PO BID #20 capsule Lisinopril [Zestril] 5 mg PO DAILY #30 tablet Tramadol HCl [Ultram] 50 mg PO QID PRN 5 Days #20 tablet PRN Reason: Mild Pain
--- NOTE | 2018-04-14 12:42 | Internal Med Progress Note ---
Date of Encounter: 04/14/18 Time of Encounter: 09:00 - Assessment and plan (1) Diabetic foot ulcer Current Visit: Yes Status: Acute Assessment and plan: 47 male with diabetes and diabetic arthropathy, and multiple right foot revision by freelance operator, most recent one in October 2017, presented with right foot foot and a bloody drainage, associated with fever, x-ray right foot showed swelling soft tissue, possible abscess, possible underlying osteomyelitis, displaced heart well, and a possible broken screw. It Consultant was consulted, plan was to take the patient to OR for washout and readjust hardware. Hospitalist will continue manage the infection. - Blood culture, wound culture sent, patient received Zosyn and vancomycin at the ED. - Continue antibiotics, consult ID tomorrow. - Podiatry following. 04/09: Day #2 Zosyn/Vancomycin. I&D this afternoon 04/10: Postop day 1. Awaiting cultures. Vancomycin is stopped for now. We restarted if MRSA grows out. Patient is day #3 IV Zosyn. Anticipate he will need 6 weeks of IV antibiotics, as indicated by infectious disease note. Will need a PICC line at discharge, will consult VAT prior to that time 04/11: I discussed the case with Agueda Rahman and infectious disease. She will continue on IV Zosyn, renally dosed. Currently day #4 and anticipate a 6 week course. We are awaiting cultures. 04/13: Day #6 renally dosed Zosyn. Antibiotics as directed by infectious disease. Await final culture data 04/14: Wound cultures growing out group C strep, as well as MSSA Presently day #7 Zosyn of an anticipated 42 day course of IV antibiotics. Infectious disease is following. Abx as per ID. PICC line in the future, prefer to have dialysis issue resolved first (do not want to put additional devices in his arm in case he needs preservation of this for dialysis) (2) Osteomyelitis Current Visit: Yes Status: Acute Assessment and plan: X-ray of right foot revealed possible osteomyelitis, patient received Zosyn and vancomycin at ED, cultures sent, will continue current antibiotics, will consult ID tomorrow. 04/09: Await I&D, abx as described above 04/11: As discussed above. (3) HTN (hypertension) Current Visit: No Status: Chronic Assessment and plan: BP controlled, continue home medication. 04/11: Blood pressure improved. Beta charmaine restarted. Monitor 04/13: Reasonable blood pressure control (4) DM2 (diabetes mellitus, type 2) Current Visit: No Status: Acute Assessment and plan: Poorly controlled diabetes, continue home dose of long-acting insulin, decrease the dose of bolus insulin before each meal, started patient on insulin sliding scale. 04/09: Blood sugars are elevated today. As to further adjust just yet given the fact that he is nothing by mouth for surgery. We will continue to monitor. 04/10: Levemir increased for elevated blood sugars.. Continue sliding scale. Monitor 04/11: Levemir further increased to 55 units subcutaneous twice a day for persistently elevated blood sugars. Continue to monitor. 04/14: Glycemic control is improving. Monitor. (5) CKD (chronic kidney disease) Current Visit: No Status: Chronic Assessment and plan: Creatinine at the baseline, continue monitoring. Continue IV fluid. Avoid nephrotoxins as best able 04/10: Now with acute kidney injury. Avoid nephrotoxins. Vancomycin is held. Continue IV fluids. Recheck BMP in the morning. 04/11: Creatinine continues to worsen. Nephrology is consulted. I discussed the case with nephrology. Suspect this is due to vancomycin-induced nephropathy, plus recent sepsis and hypotension. Continue to avoid nephrotoxins. Renal ultrasound is ordered. Closely monitor. No indication for acute dialysis, although I am concerned of his volume status given the fluids he is received and the fact that he remains anuric. We will continue to closely monitor. 04/12: Patient with acute kidney injury, anuric renal failure. Superimposed on chronic kidney disease stage III. Nephrology input is appreciated. Hemodialysis today. Monitor. Avoid all nephrotoxins. I discussed the case with nephrology, Dr. Jack today. 04/14: Continues with hemodialysis via right internal jugular Vas-Cath. Hopeful for renal recovery. Nephrology is following. (6) Hyponatremia syndrome Current Visit: Yes Status: Acute Assessment and plan: Unknown etiology, continue IV fluid, repeat BMP in a.m. 04/09: Patient's hyponatremia is secondary to hypernatremia, " pseudohyponatremia " May also be a component of hypovolemic hyponatremia. Monitor. Sodium is improving. 04/11: Sodium 128 today. Not particularly changed from yesterday. Continue to monitor. Nephrology input is appreciated 04/13: Repeat sodium pending. 04/14: Sodium improving (7) Sepsis Current Visit: Yes Status: Acute (8) Hypomagnesemia Current Visit: Yes Status: Acute Assessment and plan: Replaced, check magnesium in a.m. 04/11: Improved (9) NEHEMIAH (obstructive sleep apnea) Current Visit: No Status: Acute Assessment and plan: On CPAP, compliant in hospital - Time Spent With Patient Total time spent is greater than 50% in coordination of care (as documented) at patient's floor/unit and/or counseling patient: 25 - 35 minutes - Subjective Interval history: Chief complaint right foot pain Hosp Summary to Date: Admitted 04/08- thru 04/14/18 This is a 47-year-old male with super morbid obesity, obstructive sleep apnea for which she is on CPAP and compliant, insulin-dependent type 2 diabetes mellitus, hyperlipidemia, chronic kidney disease stage III, and a right Charcot foot. Patient was admitted on April 08 for a right foot infected ulcer. Patient had initially a blister which opened, and then had pus drainage. Patient was seen in the emergency department and admitted for right foot infection, suspected osteomyelitis with sepsis. He was given Zosyn and one dose of IV vancomycin (which has since been stopped). 04/10: underwent I&D of his foot -with purulence drained, lavage, previous hardware removal, and biopsy of both his navicular and talus bone. Unfortunately patient developed progressive anuric renal failure. His admission creatinine was 2.48, it is been slowly worsening. Nephrology has been consulted 04/12: Placement of a right internal jugular vas catheter. 04/13: Underwent first round of hemodialysis. 04/14: Renal function is not showing any recovery as of yet. Patient despite this is feeling well. He has no chest pain or shortness of breath. He does have swelling in his legs. No fevers or chills. We are waiting renal recovery. This is possibly due to the vancomycin he received as he has a history of renal failure due to vancomycin. Nephrology is following and performing workup for other causes of renal failure as well. Patient is currently day #7 of renally dosed Zosyn. Infectious diseases is following. Thus far wound cultures have grown out group C Strep, and MSSA. Blood cultures neg. Podiatry is planning on doing a second I&D, however this was delayed due to his need for dialysis. So currently day #7 of 42 days abx. Will need PICC soon. Would prefer to ensure renal recovery prior to placing additional devices in his arm. - Constitutional Vitals: Temp Pulse Resp BP Pulse Ox 98.1 F 52 17 116/73 94 04/14/18 11:07 04/14/18 11:07 04/14/18 11:07 04/14/18 11:07 04/14/18 11:07 General appearance: Present: A&O X 3, morbidly obese, no acute distress - Head Head exam: Present: atraumatic, normocephalic - Eye Eye exam: Present: PERRL, conjuntiva pink, sclera anicteric Pupils: Present: PERRL - Neck Neck exam general surgery: Present: supple, trachea midline. Absent: lymphadenopathy - Respiratory Respiratory exam: Present: CTAB. Absent: accessory muscle use, rales, rhonchi, wheezes - Cardiovascular Cardiovascular exam: Present: RRR, +S1, +S2. Absent: diastolic murmur, gallop, rubs, systolic murmur - GI/Abdominal GI/Abdominal exam: Present: normal bowel sounds, soft, no peritoneal signs. Absent: distended, tenderness - Extremities Exam Extremities exam: Present: pedal edema (Right foot dressed), warm, radial pulses palpable and symmetrical. Absent: calf tenderness, cyanotic - Neurological Exam Neurological exam: Present: CN II-XII intact, oriented X3, no focal deficits. Absent: pronater drift, facial droop, speech deficit - Skin Skin exam: Present: dry, intact Internal Medicine: Result - Labs CBC & Chem 7: 04/13/18 15:02 04/14/18 04:49 Labs: Short CBC 04/13/18 Range/Units 15:02 WBC 10.1 (4.3-11.1) K/mcL Hgb 8.8 L (12.9-16.9) g/dL Hct 26.1 L (37.5-50.1) % Plt Count 363 (140-400) K/mcL Neutrophils # 7.0 (1.6-8.9) K/mcL BMP 04/13/18 04/14/18 15:02 04:49 Sodium 132 L 133 L Potassium 4.0 4.4 Chloride 100 102 Carbon Dioxide 22 L 22 L BUN 45 H 53 H Creatinine 5.82 H 6.64 H Glucose 242 H 240 H Calcium 8.1 L 7.8 L - ABG Interpretation ABG results: PT/INR, D-dimer PT 12.8 Seconds (9.4-12.1) H 04/08/18 11:37 Consult Discharge Plan - Plan Referrals: Dolly Garcia, MECHANICAL LEAD [Primary Care Provider] -
[2018-04-15] MEDS: *HR* Heparin 5,000 UNIT/ML VIAL SQ SCH ×4 (00:05→22:51)
--- NOTE | 2018-04-15 00:09 | Podiatry Progress Note ---
Date of Encounter: 04/14/18 Time of Encounter: 12:00 - Assessment and Plan (1) Charcot foot due to diabetes mellitus Current Visit: No Status: Acute Continued drainage noted from the dressings. Awaiting further medical stabilization for likely washout. Minimize weightbearing Subjective Principal diagnosis: RLE swelling/bleeding Interval history: Patient seen today resting comfortably at bedside. Patient was sleeping with CPAP on during the visit. Objective - Vital Signs Vital Signs: Vital Signs Temp Pulse Resp BP Pulse Ox 04/14/18 19:20 98.0 F 57 15 135/82 98 04/14/18 11:07 98.1 F 52 17 116/73 94 04/14/18 07:13 98.5 F 57 16 144/77 94 04/14/18 04:53 98.8 F 58 16 134/72 98 Intake and Output 04/14/18 04/14/18 04/15/18 15:59 23:59 07:59 Intake Total 220 / 220 100 / 100 Output Total 0 / 0 0 / 0 Balance 220 / 220 100 / 100 Intake: IV Fluids 100 / 100 100 / 100 Zosyn 3.375 GM In 0.9 % Sodium 100 / 100 100 / 100 Chloride (Mini-Bag +) 100 ML @ 25 mls/hr IVPB Q12H [facility] Rx#: [id number] Oral 120 / 120 0 / 0 Output: Urine 0 / 0 0 / 0 Other: Blood Glucose* 190 233 - Exam Exam: Drainage noted on the dressings and continued mild maceration around the sites of infection. Pedal pulses palpable. Capillary fill time intact to digits 1 through 5 bilaterally. There are no new open lesions, abrasions, or ulcerations. Sensation decreased to bilateral lower extremities consistent with peripheral neuropathy. - Lab Result Diagrams: 04/13/18 15:02 04/15/18 06:31 Labs: Abnormal lab results RBC 3.11 M/mcL (4.19-5.50) L 04/13/18 15:02 Hgb 8.8 g/dL (12.9-16.9) L 04/13/18 15:02 Hct 26.1 % (37.5-50.1) L 04/13/18 15:02 RDW 14.6 % (11.5-14.5) H 04/13/18 15:02 Immature Gran % 6.9 % (0-4) H 04/13/18 15:02 Metamyelocytes % 2.0 % (0) H 04/11/18 08:13 Nucleated RBCs/100 WBC 0.2 /100 WBC (0) H 04/12/18 08:56 ESR 106 mm/hr (0-10) H 04/08/18 18:00 PT 12.8 Seconds (9.4-12.1) H 04/08/18 11:37 Sodium 133 mEq/L (136-145) L 04/14/18 04:49 Carbon Dioxide 22 mEq/L (23-29) L 04/14/18 04:49 BUN 53 mg/dL (6-20) H 04/14/18 04:49 Creatinine 6.64 mg/dL (0.70-1.30) H 04/14/18 04:49 Est GFR ( Amer) 11 (> 60) L 04/14/18 04:49 Est GFR (Non-Af Amer) 9 (> 60) L 04/14/18 04:49 Glucose 240 mg/dL (70-105) H 04/14/18 04:49 POC Glucose 227 mg/dL (70-99) H 04/14/18 17:01 Hemoglobin A1c 9.4 % (-5.6) H 04/09/18 06:56 Calcium 7.8 mg/dL (8.6-10.3) L 04/14/18 04:49 Phosphorus 5.3 mg/dL (2.7-4.5) H 04/12/18 08:56 Creatine Kinase 277 Units/L (30-223) H 04/13/18 15:02 C-Reactive Protein > 300 mg/L (Less than 10) H 04/08/18 18:00 Urine Clarity Turbid (Clear) A 04/11/18 14:50 Urine Protein 100 mg/dL (Neg-Trace) H 04/11/18 14:50 Urine Glucose (UA) 100 mg/dL (Normal) H 04/11/18 14:50 Urine Blood Large (Negative) H 04/11/18 14:50 Urine Microscopic RBC 5-15 per hpf (0-3) H 04/11/18 14:50 Urine Microscopic WBC 30-50 per hpf (0-3) H 04/11/18 14:50 Ur Squamous Epith Cells Many per lpf (None-Few) H 04/11/18 14:50 Amorphous Sediment Moderate (Few) H 04/11/18 14:50 Protein/Creatinin Ratio 1.31 mg/mg (0.00-0.20) H 04/11/18 14:50 Urine Total Protein 184 mg/dL (1-14) H 04/11/18 14:50 Vancomycin Trough 30 mcg/mL (5-10) H 04/10/18 12:44 Microbiology, Last 48 Hours 04/09/18 23:09 Anaerobic Culture - Preliminary Right Foot At this time, no anaerobic growth is present. The culture will be finalized after 5 days of incubation. 04/08/18 14:48 Blood Culture - Final Peripheral Venipuncture No growth. 04/09/18 23:09 Wound Culture - Final Right Foot Staphylococcus aureus Consult Discharge Plan - Plan Referrals: Dolly Garcia CNP [Primary Care Provider] -
[2018-04-15 02:07] LABS: Hepatitis B Surface Antibody 0.95 mIU/mL
[2018-04-15] MEDS: traMADol 50 MG TABLET PO PRN ×2 (02:19→13:11)
[2018-04-15] MEDS: Piperacillin/Tazobactam 3.375 GM in 0.9 % Sodium Chloride Mini Bag 100 ML IVPB SCH ×2 (06:11→17:59)
[2018-04-15 07:12] LABS: Calcium 8.1 mg/dL (8.6-10.3); Potassium 4.9 mEq/L (3.5-5.1)
[2018-04-15 07:56] LABS: Complement Component 4 34 mg/dL (10-40)
[2018-04-15 07:57] LABS: ANA IgG by ELISA NONE DETECTED (None Detected); Complement Component 3 132 mg/dL (88-201)
[2018-04-15] MEDS ORDERED: 0.9 % Sodium Chloride 250 ML IVC PRN (08:14)
[2018-04-15] MEDS ORDERED: *HR* Heparin 10,000 UNIT/10 ML VIAL IV PRN (08:14)
[2018-04-15] MEDS ORDERED: 0.9 % Sodium Chloride 2,000 ML ONE (09:25)
[2018-04-15 10:15] LABS: Myeloperoxidase Ab 0 AU/mL (0-19); Serine Protease-3 Antibody 4 AU/mL (0-19)
--- NOTE | 2018-04-15 10:51 | Infectious Disease Progress No ---
Date of Encounter: 04/15/18 Time of Encounter: 10:49 - Assessment and Plan (1) Sepsis Current Visit: Yes Status: Acute The patient had two SIRS criteria on admission. Likely secondary to right foot infection and OM. Improved. Afebrile. WBC normalized. Blood cultures drawn 04/08/18 are negative x 2 sets. Qualifiers: Sepsis type: sepsis due to unspecified organism Qualified Code(s): A41.9 - Sepsis, unspecified organism (2) Osteomyelitis Current Visit: Yes Status: Acute Causative organism: GCS and MSSA. Location: Right foot talus and navicularis. Likely secondary to right foot DFU. X-ray of the right foot completed 04/08/18 showed bony erosion of the talus and navicularis. ESR 106, CRP >300. Podiatry consulted and following. Status post I&D of the right ankle/foot, removal of hardware, and bone biopsy. Operative note was reviewed. Purulence noted Intra-Op adjacent to the hardware. Intraoperative cultures are positive for MSSA. Pathology positive for OM of the talus bone. Wound care and activity restrictions as outlined by the podiatry team. Discontinue Zosyn. Start Rocephin 2 grams IV daily. Duration of treatment depends on the clinical picture, but likely 6 weeks of IV antibiotics. Continue to monitor renal function. Consult VAT prior to discharge once final antibiotic regimen determined. Will need weekly CBC, BUN/Cr, ESR, CRP. Will need weekly IV care. Follow up with ID 05/09/18 at 0840. Qualifiers: Osteomyelitis type: other acute Osteomyelitis location: foot Laterality: right Qualified Code(s): M86.171 - Other acute osteomyelitis, right ankle and foot (3) Abscess of right foot Current Visit: Yes Status: Acute Location: Right foot. Causative organism: GCS and MSSA. Status post I & D 04/09/[address] Mercer. Antibiotics as above. (4) YESENIA (acute kidney injury) Current Visit: Yes Status: Acute YESENIA on CKD. Serum creatinine continues to trend up. Etiology unclear, but likely multifactorial: hypotension post-op, Vancomycin, dehydration Continue to trend. Nephrology consulted and following. HD initiated 04/13/18. RP UTS negative. Avoid additional nephrotoxins. Dose-adjust antibiotics as needed. (5) Diabetic foot ulcer Current Visit: Yes Status: Acute Etiology unclear. Podiatry consulted and following. Qualifiers: Diabetic foot ulcer location: heel Diabetes mellitus type: type 2 Laterality: right Non-pressure ulcer stage: unspecified non-pressure ulcer stage Qualified Code(s): E11.621 - Type 2 diabetes mellitus with foot ulcer; L97.419 - Non-pressure chronic ulcer of right heel and midfoot with unspecified severity (6) Charcot foot due to diabetes mellitus Current Visit: No Status: Acute Status post reconstruction 10/[address] Mercer. (7) HTN (hypertension) Current Visit: No Status: Chronic Qualifiers: Hypertension type: essential hypertension Qualified Code(s): I10 - Essential (primary) hypertension (8) NEHEMIAH (obstructive sleep apnea) Current Visit: No Status: Acute (9) Morbid obesity with BMI of 50.0-59.9, adult Current Visit: No Status: Acute (10) CKD (chronic kidney disease) Current Visit: No Status: Chronic Monitor renal function closely. Dose-adjust antibiotics. Avoid nephrotoxins as able. Qualifiers: Chronic kidney disease stage: stage 2 (mild) Qualified Code(s): N18.2 - Chronic kidney disease, stage 2 (mild) - Subjective Interval history: Patient seen and examined in the HD unit. Weekend notes reviewed. Status post temporary dialysis catheter placement with HD on 04/13/18. Had durham catheter placed last night due to urinary retention. Status post I & D of the right ankle with removal of hardware and bone biopsy 04/09/18. He states overall he feels okay. Denies fevers, chills, or rigors. He denies chest pain, shortness of breath, or cough. Denies nausea, vomiting, diarrhea, or constipation. Denies abdominal pain or appetite changes. Denies oral thrush or skin lesions. Denies pain at surgical site. Infect Dis PN-Objective Data - Labs CBC & Chem 7: 04/13/18 15:02 04/15/18 06:31 Labs: Laboratory Results - last 24 hr 04/12/18 04/12/18 04/13/18 11:32 11:32 09:42 Sodium Potassium Chloride Carbon Dioxide BUN Creatinine Est GFR ( Amer) Est GFR (Non-Af Amer) BUN/Creatinine Ratio Glucose POC Glucose Calculated Osmolality Calcium KRISTEN Screen NONE DETECTED Myeloperoxidase Ab 0 Serine Protease 3 Ab 4 Complement C3 132 Complement C4 34 Hep Bs Antibody 0.95 04/14/18 04/14/18 04/14/18 11:11 17:01 20:04 Sodium Potassium Chloride Carbon Dioxide BUN Creatinine Est GFR ( Amer) Est GFR (Non-Af Amer) BUN/Creatinine Ratio Glucose POC Glucose 190 H 227 H 233 H Calculated Osmolality Calcium KRISTEN Screen Myeloperoxidase Ab Serine Protease 3 Ab Complement C3 Complement C4 Hep Bs Antibody 04/15/18 04/15/18 06:31 08:07 Sodium 134 L Potassium 4.9 Chloride 103 Carbon Dioxide 20 L BUN 64 H Creatinine 7.48 H Est GFR ( Amer) 9 L Est GFR (Non-Af Amer) 8 L BUN/Creatinine Ratio 9 Glucose 133 H POC Glucose 119 H Calculated Osmolality 298 Calcium 8.1 L KRISTEN Screen Myeloperoxidase Ab Serine Protease 3 Ab Complement C3 Complement C4 Hep Bs Antibody Cultures: Cultures 04/09/18 23:09 Anaerobic Culture - Final Right Foot No anaerobes were recovered. 04/08/18 14:48 Blood Culture - Final Peripheral Venipuncture No growth. 04/09/18 23:09 Wound Culture - Final Right Foot Staphylococcus aureus Serology 04/13/18 04/11/18 04/11/18 Range/Units 09:42 14:50 14:50 Urine Color Yellow (Yellow) Urine Clarity Turbid A (Clear) Urine pH 5.5 (5.0-8.0) pH Units Ur Specific [place] 1.020 (1.010-1.025) Urine Protein 100 H (Neg-Trace) mg/dL Urine Glucose (UA) 100 H (Normal) mg/dL Urine Ketones Negative (Negative) mg/dL Urine Blood Large H (Negative) Urine Nitrite Negative (Negative) Urine Bilirubin Negative (Negative) Urine Urobilinogen Normal (Normal) mg/dL Ur Leukocyte Esterase Negative (Negative) Urine Microscopic RBC 5-15 H (0-3) per hpf Urine Microscopic WBC 30-50 H (0-3) per hpf Ur Squamous Epith Cells Many H (None-Few) per lpf Amorphous Sediment Moderate H (Few) Urine Bacteria None Seen (None-Few) per hpf Hyaline Casts None Seen (None-Few) per lpf Urine Yeast Test Not Performed Ur Culture Indicated? NO (NO) Urine Creatinine 140 mg/dL Protein/Creatinin Ratio 1.31 H (0.00-0.20) mg/mg Urine Sodium 35.9 mEq/L Urine Total Protein 184 H (1-14) mg/dL Hep Bs Antigen Nonreactive (Nonreactive) Hep Bs Antibody 0.95 mIU/mL Exam - Constitutional Vitals: Temp Pulse Resp BP Pulse Ox 97.9 F 55 16 116/69 95 04/15/18 08:04 04/15/18 08:04 04/15/18 08:04 04/15/18 08:04 04/15/18 08:04 General appearance: cooperative, morbidly obese, no acute distress - Head Head exam: Present: atraumatic, normal inspection, normocephalic - Eye Eye exam: Present: EOMI, normal appearance, PERRL Pupils: Present: normal accommodation - ENT ENT exam: Present: mucous membranes moist - Neck Neck exam: Present: normal inspection Additional comments: Temporary dialysis catheter noted to the right neck with transparent dressing dry and intact. - Respiratory Respiratory exam: Present: CTAB. Absent: rales, respiratory distress, rhonchi, wheezes - Cardiovascular Cardiovascular exam: Present: RRR, +S1, +S2 - GI/Abdominal GI/Abdominal exam: Present: distended (obese), normal bowel sounds, soft. Absent: tenderness Additional comments: [place] catheter noted to be draining clear yellow urine. - Extremities Exam Extremities exam: Absent: joint swelling, pedal edema, tenderness Additional comments: Right foot dressing/splint C/D/I. - Neurological Exam Neurological exam: Present: alert, oriented X3, no focal deficits - Psychiatric Psychiatric exam: Present: normal affect, normal mood - Skin Skin exam: Present: dry, intact, normal color, warm Consult Discharge Plan - Plan Referrals: Dolly Garcia CNP [Primary Care Provider] - Agueda Rahman CNP [Advanced Practice Nurse] - 05/09/18 8:40 am - Attending Attestation I examined this patient and my medical decision-making was reviewed with the Resident Physician. I agree with the documented findings, disposition and treatment plan as described except to the extent set forth below.
--- NOTE | 2018-04-15 11:25 | Nephrology Progress Note ---
Date of Encounter: 04/15/18 Time of Encounter: 11:19 - Assessment and Plan (1) YESENIA (acute kidney injury) Current Visit: Yes Status: Acute Patient was on IV Vancomycin for RLE infection with worsening Scr and GFR. No kidney disease at baseline, did have YESENIA in October of last year with full renal recovery. Scr worsening 7.48 GFR 8 despite HD session Sunday, HD ordered for today. Continue to avoid nephrotoxins and renal dose all medications. C3 C4 and KRISTEN noted. Urine Eosonophil ordered for today. Latif cath placed last night, he was unable to void for several hours. UOP is 3125 currently, unsure if any of that was charted for yesterday or only today. Strict I/O. (2) Abscess of right foot Current Visit: Yes Status: Acute Per podiatry. (3) Diabetic foot ulcer Current Visit: Yes Status: Acute See above. Qualifiers: Diabetic foot ulcer location: heel Diabetes mellitus type: type 2 Laterality: right Non-pressure ulcer stage: unspecified non-pressure ulcer stage Qualified Code(s): E11.621 - Type 2 diabetes mellitus with foot ulcer; L97.419 - Non-pressure chronic ulcer of right heel and midfoot with unspecified severity (4) Hyponatremia syndrome Current Visit: Yes Status: Acute NA 134, no signs/symptoms of Hyponatremia. Subjective Principal diagnosis: RLE swelling/bleeding Interval history: Pt seen and examined during hemodialysis. No c/o of nausea/vomiting/diarrhea. Objective - Vital Signs Vital signs: Vital Signs Temp Pulse Resp BP Pulse Ox 04/15/18 10:00 135/69 04/15/18 09:45 131/70 04/15/18 09:30 141/72 04/15/18 09:15 97.9 F 15 141/67 04/15/18 08:04 97.9 F 55 16 116/69 95 04/15/18 04:49 98.6 F 59 15 127/71 94 04/15/18 00:23 98.0 F 54 15 107/66 94 04/14/18 19:20 98.0 F 57 15 135/82 98 Intake and Output 04/14/18 04/15/18 04/15/18 23:59 07:59 15:59 Intake Total 100 / 100 0 / 0 600 / 600 Output Total 0 / 0 2150 / 2150 0 / 0 Balance 100 / 100 -2150 / -2150 600 / 600 Intake: IV Fluids 100 / 100 Zosyn 3.375 GM In 0.9 % Sodium 100 / 100 Chloride (Mini-Bag +) 100 ML @ 25 mls/hr IVPB Q12H [facility] [place] Rx#: [id number] Oral 0 / 0 0 / 0 0 / 0 Intake, Rinseback and Flushes 600 / 600 Output: Urine 0 / 0 0 / 0 0 / 0 Catheter 2149 Urethral (Latif) 975 / 975 Other: Weight 187.9 kg Blood Glucose* 233 119 Hemodialysis Net Fluid Removed 607 (mL) Patient Weight 04/15/18 23:59 Weight 187.9 kg - General Appearance General appearance: Present: well-developed, well-nourished, obese EENT: Present: ATNC, hearing intact, vision intact Neck: Present: supple Respiratory: Present: clear Cardiology: Present: no edema, normal S1, normal S2 Dialysis Vascular Access: Venous Catheter (DRSG C/D/I.) Gastrointestinal: Present: normoactive bowel sounds, no tenderness, no guarding Integumentary: Present: no rash, warm and dry Additional Comments: RLE Drsg C/D/I. Neurologic: Present: alert and oriented x3 Psychiatric: Present: mood/affect appropriate, cooperative - Lab 04/13/18 15:02 04/15/18 06:31 Most recent lab results Calcium 8.1 mg/dL (8.6-10.3) L 04/15/18 06:31 Phosphorus 5.3 mg/dL (2.7-4.5) H 04/12/18 08:56 Magnesium 1.8 mg/dL (1.6-2.6) 04/12/18 08:56 Urine Creatinine 140 mg/dL 04/11/18 14:50 Urine Sodium 35.9 mEq/L 04/11/18 14:50 Urine Total Protein 184 mg/dL (1-14) H 04/11/18 14:50 Consult Discharge Plan - Plan Referrals: Dolly Garcia, [employer]ER [Primary Care Provider] -
[2018-04-15] MEDS: Cyanocobalamin (B-12) 1,000 MCG TABLET PO SCH (12:38)
[2018-04-15] MEDS: ARIPiprazole 10 MG TABLET PO SCH (12:38)
[2018-04-15] MEDS: Gabapentin 300 MG CAPSULE PO SCH (12:39)
[2018-04-15] MEDS: Insulin LISPRO 300 UNITS/3 ML VIAL SQ SCH ×4 (12:41→22:51)
[2018-04-15] MEDS: Insulin DETEMIR 100 UNIT/ML X5UNITS SQ SCH ×2 (12:41→22:50)
--- NOTE | 2018-04-15 17:47 | Internal Med Progress Note ---
Date of Encounter: 04/15/18 Time of Encounter: 14:00 - Assessment and plan (1) Sepsis Current Visit: Yes Status: Acute Assessment and plan: Improved (2) Diabetic foot ulcer Current Visit: Yes Status: Acute Assessment and plan: 04/09: Day #2 Zosyn/Vancomycin. I&D this afternoon 04/10: Postop day 1. Awaiting cultures. Vancomycin is stopped for now. We restarted if MRSA grows out. Patient is day #3 IV Zosyn. Anticipate he will need 6 weeks of IV antibiotics, as indicated by infectious disease note. Will need a PICC line at discharge, will consult VAT prior to that time 04/11: I discussed the case with Agueda Rahman and infectious disease. She will continue on IV Zosyn, renally dosed. Currently day #4 and anticipate a 6 week course. We are awaiting cultures. 04/13: Day #6 renally dosed Zosyn. Antibiotics as directed by infectious disease. Await final culture data 04/14: Wound cultures growing out group C strep, as well as MSSA 04/15- Wound cx growing Grop C strep and MSSA/..Cont empirical abx Zosyn # 8 ID on board (3) Osteomyelitis Current Visit: Yes Status: Acute Assessment and plan: rt foot (4) CKD (chronic kidney disease) Current Visit: No Status: Chronic Assessment and plan: YESENIA with CKD-3 pt developed worsening YESENIA Needed HD Currently on active HD however his Cr still elevated He may need [facility] HD Nephro on board (5) HTN (hypertension) Current Visit: No Status: Chronic Assessment and plan: Stable with current medication (6) DM2 (diabetes mellitus, type 2) Current Visit: No Status: Acute Assessment and plan: Poorly controlled diabetes, continue home dose of long-acting insulin, decrease the dose of bolus insulin before each meal, started patient on insulin sliding scale. 04/09: Blood sugars are elevated today. As to further adjust just yet given the fact that he is nothing by mouth for surgery. We will continue to monitor. 04/10: Levemir increased for elevated blood sugars.. Continue sliding scale. Monitor 04/11: Levemir further increased to 55 units subcutaneous twice a day for persistently elevated blood sugars. Continue to monitor. 04/15 - Stable BS now.. Cont current regimen (7) NEHEMIAH (obstructive sleep apnea) Current Visit: No Status: Acute Assessment and plan: On CPAP, compliant in hospital (8) Hyponatremia syndrome Current Visit: Yes Status: Acute Assessment and plan: resolved - Time Spent With Patient Total time spent is greater than 50% in coordination of care (as documented) at patient's floor/unit and/or counseling patient: - Subjective Interval history: Pt is resting comfortably in bed He is not any distress Denied any CP / SOB Just came back from HD - Constitutional Vitals: Temp Pulse Resp BP Pulse Ox 98.7 F 60 18 144/81 97 04/15/18 15:12 04/15/18 15:12 04/15/18 15:12 04/15/18 15:12 04/15/18 15:12 General appearance: Present: A&O X 3, morbidly obese, no acute distress - Head Head exam: Present: atraumatic, normal inspection - Neck Neck exam general surgery: Present: supple - Respiratory Respiratory exam: Present: decreased breath sounds. Absent: rales, respiratory distress, rhonchi, wheezes - Cardiovascular Cardiovascular exam: Present: RRR, +S1, +S2. Absent: tachycardia - GI/Abdominal GI/Abdominal exam: Present: normal bowel sounds, soft. Absent: rebound, rigid, tenderness - Extremities Exam Extremities exam: Present: pedal edema. Absent: calf tenderness, tenderness Additional comments: Splint and dressing placed over Rt leg - Back Exam Back exam: Absent: CVA tenderness (L), CVA tenderness (R) - Neurological Exam Neurological exam: Present: alert, oriented X3 - Psychiatric Psychiatric exam: Present: normal affect, normal mood Internal Medicine: Result - Labs CBC & Chem 7: 04/13/18 15:02 04/15/18 06:31 Labs: BMP 04/15/18 06:31 Sodium 134 L Potassium 4.9 Chloride 103 Carbon Dioxide 20 L BUN 64 H Creatinine 7.48 H Glucose 133 H Calcium 8.1 L - ABG Interpretation ABG results: PT/INR, D-dimer PT 12.8 Seconds (9.4-12.1) H 04/08/18 11:37 Consult Discharge Plan - Plan Referrals: Agueda Rahman MASS SPECTROSCOPIST [Advanced Practice Nurse] - 05/09/18 8:40 am Dolly Garcia MASS SPECTROSCOPIST [Primary Care Provider] -
--- NOTE | 2018-04-15 18:48 | Podiatry Progress Note ---
Date of Encounter: 04/15/18 Time of Encounter: 06:10 - Assessment and Plan (1) Abscess of right foot Current Visit: Yes Status: Acute Chronic charcot s/p surgery in 2017. Developed infection/abscess over last few days. Questionable osteomyelitis navicular and talus vs charcot. Broken hardware. discussed with patient surgical procedure and course of recovery. discussed he is still high risk for limb loss. no purulence expressed from the wound sites. wound flushed and packed. continue this for now. his extremity appears stable, no urgent surgical procedure at this time. remain non-weight bearing to the left lower extremity. encouraged glycemic control. discussed with an A1c over 9 % his body cannot effectively heal wounds. when he is stable for discharge, he will need to follow up with me in the woundcare center. (2) Charcot foot due to diabetes mellitus Current Visit: No Status: Acute see above. non-weight bearing right lower extremity. Subjective Principal diagnosis: RLE swelling/bleeding Interval history: denies feeling like he experienced f/c/n/v/sob/cp. had dialysis session. says that he did make urine tonight. Objective - Vital Signs Vital Signs: Vital Signs Temp Pulse Resp BP Pulse Ox 04/15/18 15:12 98.7 F 60 18 144/81 97 04/15/18 12:42 97.8 F 59 18 143/81 97 04/15/18 12:25 97.7 F 15 159/89 04/15/18 12:15 159/89 04/15/18 12:00 167/85 04/15/18 11:45 153/70 04/15/18 11:30 162/80 04/15/18 11:15 160/90 04/15/18 11:00 145/85 04/15/18 10:45 126/57 04/15/18 10:30 141/67 04/15/18 10:15 137/86 04/15/18 10:00 135/69 04/15/18 09:45 131/70 04/15/18 09:30 141/72 04/15/18 09:15 97.9 F 15 141/67 04/15/18 08:04 97.9 F 55 16 116/69 95 04/15/18 04:49 98.6 F 59 15 127/71 94 04/15/18 00:23 98.0 F 54 15 107/66 94 04/14/18 19:20 98.0 F 57 15 135/82 98 Intake and Output 04/15/18 04/15/18 04/15/18 07:59 15:59 23:59 Intake Total 0 / 0 700 / 700 Output Total 2149 / 2149 400 / 400 Balance -2150 / -2150 300 / 300 Intake: IV Fluids 100 / 100 Zosyn 3.375 GM In 0.9 % Sodium 100 / 100 Chloride (Mini-Bag +) 100 ML @ 25 mls/hr IVPB Q12H [facility] Rx#: [id number] Oral 0 / 0 0 / 0 Intake, Rinseback and Flushes 600 / 600 Output: Urine 0 / 0 0 / 0 Catheter 0 2149 400 / 400 Urethral (Latif) 975 / 975 Other: Meal Lunch Percent of Meal Consumed 50% Weight 187.9 kg Blood Glucose* 86 156 Hemodialysis Net Fluid Removed 3600 (mL) Patient Weight 04/15/18 23:59 Weight 187.9 kg - Exam Exam: well developed obese male in no acute distress retention sutures intact. no active bleeding or ooze. granular wound tissue lateral ankle. sutures intact distal foot. no purulence. no erythema of the skin. absent protective sensation. - Lab Result Diagrams: 04/13/18 15:02 04/15/18 06:31 Labs: Abnormal lab results RBC 3.11 M/mcL (4.19-5.50) L 04/13/18 15:02 Hgb 8.8 g/dL (12.9-16.9) L 04/13/18 15:02 Hct 26.1 % (37.5-50.1) L 04/13/18 15:02 RDW 14.6 % (11.5-14.5) H 04/13/18 15:02 Immature Gran % 6.9 % (0-4) H 04/13/18 15:02 Metamyelocytes % 2.0 % (0) H 04/11/18 08:13 Nucleated RBCs/100 WBC 0.2 /100 WBC (0) H 04/12/18 08:56 ESR 106 mm/hr (0-10) H 04/08/18 18:00 PT 12.8 Seconds (9.4-12.1) H 04/08/18 11:37 Sodium 134 mEq/L (136-145) L 04/15/18 06:31 Carbon Dioxide 20 mEq/L (23-29) L 04/15/18 06:31 BUN 64 mg/dL (6-20) H 04/15/18 06:31 Creatinine 7.48 mg/dL (0.70-1.30) H 04/15/18 06:31 Est GFR ( Amer) 9 (> 60) L 04/15/18 06:31 Est GFR (Non-Af Amer) 8 (> 60) L 04/15/18 06:31 Glucose 133 mg/dL (70-105) H 04/15/18 06:31 POC Glucose 156 mg/dL (70-99) H 04/15/18 16:12 Hemoglobin A1c 9.4 % (-5.6) H 04/09/18 06:56 Calcium 8.1 mg/dL (8.6-10.3) L 04/15/18 06:31 Phosphorus 5.3 mg/dL (2.7-4.5) H 04/12/18 08:56 Creatine Kinase 277 Units/L (30-223) H 04/13/18 15:02 C-Reactive Protein > 300 mg/L (Less than 10) H 04/08/18 18:00 Urine Clarity Turbid (Clear) A 04/11/18 14:50 Urine Protein 100 mg/dL (Neg-Trace) H 04/11/18 14:50 Urine Glucose (UA) 100 mg/dL (Normal) H 04/11/18 14:50 Urine Blood Large (Negative) H 04/11/18 14:50 Urine Microscopic RBC 5-15 per hpf (0-3) H 04/11/18 14:50 Urine Microscopic WBC 30-50 per hpf (0-3) H 04/11/18 14:50 Ur Squamous Epith Cells Many per lpf (None-Few) H 04/11/18 14:50 Amorphous Sediment Moderate (Few) H 04/11/18 14:50 Protein/Creatinin Ratio 1.31 mg/mg (0.00-0.20) H 04/11/18 14:50 Urine Total Protein 184 mg/dL (1-14) H 04/11/18 14:50 Vancomycin Trough 30 mcg/mL (5-10) H 04/10/18 12:44 Microbiology, Last 48 Hours 04/09/18 23:09 Anaerobic Culture - Final Right Foot No anaerobes were recovered. 04/08/18 14:48 Blood Culture - Final Peripheral Venipuncture No growth. Consult Discharge Plan - Plan Referrals: Agueda Rahman CNP [Advanced Practice Nurse] - 05/09/18 8:40 am Dolly Garcia CNP [Primary Care Provider] -
[2018-04-15] MEDS ORDERED: Gabapentin 300 MG CAPSULE PO SCH (21:00)
[2018-04-16] MEDS: Piperacillin/Tazobactam 3.375 GM in 0.9 % Sodium Chloride Mini Bag 100 ML IVPB SCH (05:31)
[2018-04-16] MEDS: traMADol 50 MG TABLET PO PRN ×2 (06:03→14:41)
[2018-04-16 07:01] LABS: Hematocrit 25.2 % (37.5-50.1); Hemoglobin 8.8 g/dL (12.9-16.9); Lymphocytes # 1.6 K/mcL (0.6-4.6); Mean Corpuscular HGB Conc 34.9 g/dL (31.6-35.5); Mean Corpuscular Hemoglobin 28.9 pg (28.0-33.3); Mean Corpuscular Volume 82.6 fL (83.0-100.0); Mean Platelet Volume 9.3 fL (9.4-12.4); Nucleated Red Blood Cells 0.2 /100 WBC (0); Platelet Count 448 K/mcL (140-400); Red Blood Count 3.05 M/mcL (4.19-5.50); Red Cell Distribution Width 14.2 % (11.5-14.5)
[2018-04-16 07:11] LABS: Calcium 8.1 mg/dL (8.6-10.3); Potassium 5.5 mEq/L (3.5-5.1)
[2018-04-16 08:05] LABS: GBM IgG Multiplex Bead Assay 0 AU/mL (0-19); Glomerular Basement Memb IgG NEGATIVE (Negative)
[2018-04-16] MEDS ORDERED: 0.9 % Sodium Chloride 250 ML IVC PRN (08:10)
[2018-04-16] MEDS ORDERED: *HR* Heparin 10,000 UNIT/10 ML VIAL IV PRN (08:10)
[2018-04-16] MEDS ORDERED: 0.9 % Sodium Chloride 1,000 ML PRIME SCH (08:15)
[2018-04-16] MEDS: *HR* Heparin 5,000 UNIT/ML VIAL SQ SCH ×2 (08:25→14:46)
[2018-04-16] MEDS: ARIPiprazole 10 MG TABLET PO SCH (08:25)
[2018-04-16] MEDS: Cyanocobalamin (B-12) 1,000 MCG TABLET PO SCH (08:25)
[2018-04-16] MEDS: Gabapentin 100 MG CAPSULE PO SCH ×2 (08:26→22:05)
[2018-04-16] MEDS: Insulin LISPRO 300 UNITS/3 ML VIAL SQ SCH ×4 (08:49→21:58)
[2018-04-16] MEDS: Insulin DETEMIR 100 UNIT/ML X5UNITS SQ SCH ×2 (08:49→22:05)
--- NOTE | 2018-04-16 09:02 | Infectious Disease Progress No ---
Date of Encounter: 04/16/18 Time of Encounter: 08:59 - Assessment and Plan (1) Sepsis Current Visit: Yes Status: Acute The patient had two SIRS criteria on admission. Likely secondary to right foot infection and OM. Improved. Afebrile. WBC normalized. Blood cultures drawn 04/08/18 are negative x 2 sets. Qualifiers: Sepsis type: sepsis due to unspecified organism Qualified Code(s): A41.9 - Sepsis, unspecified organism (2) Osteomyelitis Current Visit: Yes Status: Acute Causative organism: GCS and MSSA. Location: Right foot talus and navicularis. Likely secondary to right foot DFU. X-ray of the right foot completed 04/08/18 showed bony erosion of the talus and navicularis. ESR 106, CRP >300. Podiatry consulted and following. Status post I&D of the right ankle/foot, removal of hardware, and bone biopsy. Operative note was reviewed. Purulence noted Intra-Op adjacent to the hardware. Intraoperative cultures are positive for MSSA. Pathology positive for OM of the talus bone. Wound care and activity restrictions as outlined by the podiatry team. Discontinue Zosyn. Start Rocephin 2 grams IV daily. Duration of treatment depends on the clinical picture, but likely 6 weeks of IV antibiotics. Continue to monitor renal function. Consult VAT prior to discharge for EPIV placement. Will need weekly CBC, BUN/Cr, ESR, CRP. Will need weekly IV care. Follow up with ID 05/09/18 at 0840. Qualifiers: Osteomyelitis type: other acute Osteomyelitis location: foot Laterality: right Qualified Code(s): M86.171 - Other acute osteomyelitis, right ankle and foot (3) Abscess of right foot Current Visit: Yes Status: Acute Location: Right foot. Causative organism: GCS and MSSA. Status post I & D 04/09/[address] Mercer. Antibiotics as above. (4) YESENIA (acute kidney injury) Current Visit: Yes Status: Acute YESENIA on CKD. Serum creatinine improved after HD yesterday. Urine output 2550 yesterday. Etiology unclear, but likely multifactorial: hypotension post-op, Vancomycin, dehydration Continue to trend. Nephrology consulted and following. HD initiated 04/13/18. RP UTS negative. Avoid additional nephrotoxins. Dose-adjust antibiotics as needed. (5) Diabetic foot ulcer Current Visit: Yes Status: Acute Etiology unclear. Podiatry consulted and following. Qualifiers: Diabetic foot ulcer location: heel Diabetes mellitus type: type 2 Laterality: right Non-pressure ulcer stage: unspecified non-pressure ulcer stage Qualified Code(s): E11.621 - Type 2 diabetes mellitus with foot ulcer; L97.419 - Non-pressure chronic ulcer of right heel and midfoot with unspecified severity (6) Charcot foot due to diabetes mellitus Current Visit: No Status: Acute Status post reconstruction 10/[address] Mercer. (7) HTN (hypertension) Current Visit: No Status: Chronic Qualifiers: Hypertension type: essential hypertension Qualified Code(s): I10 - Essential (primary) hypertension (8) DM2 (diabetes mellitus, type 2) Current Visit: No Status: Acute Uncontrolled. HgbA1C 9.4%. Recommend aggressive glucose monitoring and control to promote wound healing and prevent re-infection. Management per the primary team. Qualifiers: Diabetes mellitus joint terminal attack controller insulin use: with fdc use Diabetes mellitus complication status: with hyperosmolarity Diabetes mellitus complication detail: without coma Qualified Code(s): E11.00 - Type 2 diabetes mellitus with hyperosmolarity without nonketotic hyperglycemic-hyperosmolar coma ([facility]); Z79.4 - alf (current) use of insulin (9) NEHEMIAH (obstructive sleep apnea) Current Visit: No Status: Resolved (10) Morbid obesity with BMI of 50.0-59.9, adult Current Visit: No Status: Acute - Subjective Interval history: Patient seen and examined. No acute events noted overnight. Status post temporary dialysis catheter placement with HD on 04/13/18. Status post I & D of the right ankle with removal of hardware and bone biopsy 04/09/18. He states overall he feels okay. Denies fevers, chills, or rigors. He denies chest pain , shortness of breath, or cough. Denies nausea, vomiting, diarrhea, or constipation. Denies abdominal pain or appetite changes. Denies oral thrush or skin lesions. Denies pain at surgical site. Infect Dis PN-Objective Data - Labs CBC & Chem 7: 04/17/18 05:37 04/17/18 05:37 Labs: Laboratory Results - last 24 hr 04/12/18 04/12/18 04/15/18 11:32 11:32 12:41 WBC RBC Hgb Hct MCV MCH MCHC RDW Plt Count MPV Nucleated RBCs/100 WBC Sodium Potassium Chloride Carbon Dioxide BUN Creatinine Est GFR ( Amer) Est GFR (Non-Af Amer) BUN/Creatinine Ratio Glucose POC Glucose 86 Calculated Osmolality Calcium Myeloperoxidase Ab 0 Glomerular Base Mem IgG 0 Glomer Base Mem IgG IFA NEGATIVE Serine Protease 3 Ab 4 04/15/18 04/15/18 04/16/18 16:12 21:01 06:26 WBC RBC Hgb Hct MCV MCH MCHC RDW Plt Count MPV Nucleated RBCs/100 WBC Sodium 134 L Potassium 5.5 H Chloride 102 Carbon Dioxide 18 L BUN 53 H Creatinine 6.29 H Est GFR ( Amer) 12 L Est GFR (Non-Af Amer) 10 L BUN/Creatinine Ratio 8 Glucose 228 H POC Glucose 156 H 245 H Calculated Osmolality 300 Calcium 8.1 L Myeloperoxidase Ab Glomerular Base Mem IgG Glomer Base Mem IgG IFA Serine Protease 3 Ab 04/16/18 04/16/18 06:26 08:41 WBC 9.7 RBC 3.05 L Hgb 8.8 L Hct 25.2 L MCV 82.6 L MCH 28.9 MCHC 34.9 RDW 14.2 Plt Count 448 H MPV 9.3 L Nucleated RBCs/100 WBC 0.2 H Sodium Potassium Chloride Carbon Dioxide BUN Creatinine Est GFR ( Amer) Est GFR (Non-Af Amer) BUN/Creatinine Ratio Glucose POC Glucose 213 H Calculated Osmolality Calcium Myeloperoxidase Ab Glomerular Base Mem IgG Glomer Base Mem IgG IFA Serine Protease 3 Ab Cultures: Cultures 04/09/18 23:09 Anaerobic Culture - Final Right Foot No anaerobes were recovered. 04/08/18 14:48 Blood Culture - Final Peripheral Venipuncture No growth. 04/09/18 23:09 Wound Culture - Final Right Foot Staphylococcus aureus Serology 04/13/18 04/11/18 04/11/18 Range/Units 09:42 14:50 14:50 Urine Color Yellow (Yellow) Urine Clarity Turbid A (Clear) Urine pH 5.5 (5.0-8.0) pH Units Ur Specific [place] 1.020 (1.010-1.025) Urine Protein 100 H (Neg-Trace) mg/dL Urine Glucose (UA) 100 H (Normal) mg/dL Urine Ketones Negative (Negative) mg/dL Urine Blood Large H (Negative) Urine Nitrite Negative (Negative) Urine Bilirubin Negative (Negative) Urine Urobilinogen Normal (Normal) mg/dL Ur Leukocyte Esterase Negative (Negative) Urine Microscopic RBC 5-15 H (0-3) per hpf Urine Microscopic WBC 30-50 H (0-3) per hpf Ur Squamous Epith Cells Many H (None-Few) per lpf Amorphous Sediment Moderate H (Few) Urine Bacteria None Seen (None-Few) per hpf Hyaline Casts None Seen (None-Few) per lpf Urine Yeast Test Not Performed Ur Culture Indicated? NO (NO) Urine Creatinine 140 mg/dL Protein/Creatinin Ratio 1.31 H (0.00-0.20) mg/mg Urine Sodium 35.9 mEq/L Urine Total Protein 184 H (1-14) mg/dL Hep Bs Antigen Nonreactive (Nonreactive) Hep Bs Antibody 0.95 mIU/mL Exam - Constitutional Vitals: Temp Pulse Resp BP Pulse Ox 97.8 F 54 18 138/76 96 04/16/18 07:16 04/16/18 07:16 04/16/18 07:16 04/16/18 07:16 04/16/18 07:16 General appearance: cooperative, morbidly obese, no acute distress - Head Head exam: Present: atraumatic, normal inspection, normocephalic - Eye Eye exam: Present: EOMI, normal appearance, PERRL Pupils: Present: normal accommodation - ENT ENT exam: Present: mucous membranes moist - Neck Neck exam: Present: normal inspection Additional comments: Temporary dialysis catheter noted to the right neck with transparent dressing C/ D/I. - Respiratory Respiratory exam: Present: CTAB. Absent: rales, respiratory distress, rhonchi, wheezes - Cardiovascular Cardiovascular exam: Present: RRR, +S1, +S2 - GI/Abdominal GI/Abdominal exam: Present: distended (obese), normal bowel sounds, soft. Absent: tenderness Additional comments: Latif catheter noted to be draining clear yellow urine. - Extremities Exam Extremities exam: Absent: joint swelling, pedal edema, tenderness Additional comments: Right foot dressing with small amount of old yellow drainage noted. - Neurological Exam Neurological exam: Present: alert, oriented X3, no focal deficits - Psychiatric Psychiatric exam: Present: normal affect, normal mood - Skin Skin exam: Present: dry, intact, normal color, warm Consult Discharge Plan - Plan Referrals: Agueda Rahman CNP [Advanced Practice Nurse] - 05/09/18 8:40 am Dolly Garcia CNP [Primary Care Provider] - - Attending Attestation I examined this patient and my medical decision-making was reviewed with the Resident Physician. I agree with the documented findings, disposition and treatment plan as described except to the extent set forth below.
[2018-04-16] MEDS ORDERED: 0.9 % Sodium Chloride 2,000 ML ONE (09:48)
[2018-04-16] MEDS ORDERED: *HR* Heparin 5,000 UNIT/ML VIAL ONE (09:51)
--- NOTE | 2018-04-16 11:19 | Nephrology Progress Note ---
Date of Encounter: 04/16/18 Time of Encounter: 11:15 - Assessment and Plan (1) YESENIA (acute kidney injury) Current Visit: Yes Status: Acute Patient was on IV Vancomycin for RLE infection with worsening Scr and GFR. No kidney disease at baseline, did have YESENIA in October of last year with full renal recovery. Scr 6.28 GFR 8 with HD ordered for today. Continue to avoid nephrotoxins and renal dose all medications. Urine Eosonophil not yet collected. UOP 2550 yesterday and 600 today. Strict I/O. (2) Abscess of right foot Current Visit: Yes Status: Acute Per podiatry. (3) Diabetic foot ulcer Current Visit: Yes Status: Acute See above. Qualifiers: Diabetic foot ulcer location: heel Diabetes mellitus type: type 2 Laterality: right Non-pressure ulcer stage: unspecified non-pressure ulcer stage Qualified Code(s): E11.621 - Type 2 diabetes mellitus with foot ulcer; L97.419 - Non-pressure chronic ulcer of right heel and midfoot with unspecified severity (4) Hyponatremia syndrome Current Visit: Yes Status: Acute NA 134, no signs/symptoms of Hyponatremia. Subjective Principal diagnosis: RLE swelling/bleeding Interval history: Pt seen and examined during hemodialysis. No c/o of nausea/vomiting/diarrhea. Objective - Vital Signs Vital signs: Vital Signs Temp Pulse Resp BP Pulse Ox 04/16/18 07:16 97.8 F 54 18 138/76 96 04/16/18 04:28 98.0 F 57 14 136/74 93 04/15/18 23:15 96 04/15/18 22:47 97.6 F 58 14 120/67 96 04/15/18 19:09 98.4 F 58 18 122/74 98 04/15/18 15:12 98.7 F 60 18 144/81 97 04/15/18 12:42 97.8 F 59 18 143/81 97 04/15/18 12:25 97.7 F 15 159/89 04/15/18 12:15 159/89 04/15/18 12:00 167/85 04/15/18 11:45 153/70 04/15/18 11:30 162/80 04/15/18 11:15 160/90 Intake and Output 04/15/18 04/16/18 04/16/18 23:59 07:59 15:59 Intake Total 700 / 700 300 / 300 Output Total 0 / 0 600 / 600 Balance 700 / 700 -300 / -300 Intake: IV Fluids 100 / 100 Zosyn 3.375 GM In 0.9 % Sodium 100 / 100 Chloride (Mini-Bag +) 100 ML @ 25 mls/hr IVPB Q12H [facility] Rx#: [id number] Oral 600 / 600 300 / 300 Output: Urine 0 / 0 Catheter 0 / 0 600 / 600 Other: Weight 186.8 kg Blood Glucose* 245 213 Patient Weight 04/16/18 23:59 Weight 186.8 kg - General Appearance General appearance: Present: well-developed, well-nourished, obese EENT: Present: ATNC, hearing intact, vision intact Neck: Present: supple Respiratory: Present: clear Cardiology: Present: no edema, normal S1, normal S2 Dialysis Vascular Access: Venous Catheter (Temp. Line, DRSG C/D/I.) Gastrointestinal: Present: normoactive bowel sounds, no tenderness, no guarding Integumentary: Present: no rash, warm and dry Neurologic: Present: alert and oriented x3 Psychiatric: Present: mood/affect appropriate, cooperative - Lab 04/16/18 06:26 04/16/18 06:26 Most recent lab results Calcium 8.1 mg/dL (8.6-10.3) L 04/16/18 06:26 Phosphorus 5.3 mg/dL (2.7-4.5) H 04/12/18 08:56 Magnesium 1.8 mg/dL (1.6-2.6) 04/12/18 08:56 Urine Creatinine 140 mg/dL 04/11/18 14:50 Urine Sodium 35.9 mEq/L 04/11/18 14:50 Urine Total Protein 184 mg/dL (1-14) H 04/11/18 14:50 Consult Discharge Plan - Plan Referrals: Agueda Rahman CNP [Advanced Practice Nurse] - 05/09/18 8:40 am Dolly Garcia CNP [Primary Care Provider] -
[2018-04-16 11:36] LABS: Eosinophils # 0.4 K/mcL (0.0-0.6); Monocytes # 0.6 K/mcL (0.0-1.3); Neutrophils # 7.2 K/mcL (1.6-8.9)
[2018-04-16] MEDS: cefTRIAXone 2,000 MG in Water for inj. (sterile) 20 ML 20 ML IVP SCH (14:25)
[2018-04-16 17:28] LABS: Hematocrit 22.8 % (37.5-50.1); Hemoglobin 7.9 g/dL (12.9-16.9); Mean Corpuscular HGB Conc 34.6 g/dL (31.6-35.5); Mean Corpuscular Hemoglobin 28.8 pg (28.0-33.3); Mean Corpuscular Volume 83.2 fL (83.0-100.0); Mean Platelet Volume 8.7 fL (9.4-12.4); Platelet Count 449 K/mcL (140-400); Red Blood Count 2.74 M/mcL (4.19-5.50); Red Cell Distribution Width 14.1 % (11.5-14.5)
--- NOTE | 2018-04-16 18:39 | Internal Med Progress Note ---
Date of Encounter: 04/16/18 Time of Encounter: 11:00 - Assessment and plan (1) Acute on chronic renal failure Current Visit: Yes Status: Acute Assessment and plan: Patient's creatinine continues to be elevated related Creatinine today has improved from 7.48 yesterday to 6.29 this morning with a GFR of 8 Nephrology following and appreciate continue recommendations Qualifiers: Chronic kidney disease stage: stage 3 (moderate) Qualified Code(s): N17.9 - Acute kidney failure, unspecified; N18.3 - Chronic kidney disease, stage 3 ( moderate) (2) Osteomyelitis Current Visit: Yes Status: Acute Assessment and plan: Patient Zosyn was discontinued and started on ceftriaxone today per recommendations of infectious disease. Recommendations for 6 week course of IV antibiotic treatment as an outpatient Qualifiers: Osteomyelitis type: other acute Osteomyelitis location: foot Laterality: right Qualified Code(s): M86.171 - Other acute osteomyelitis, right ankle and foot (3) Sepsis Current Visit: Yes Status: Acute Assessment and plan: Resolved; secondary to the above Qualifiers: Sepsis type: sepsis due to unspecified organism Qualified Code(s): A41.9 - Sepsis, unspecified organism (4) HTN (hypertension) Current Visit: No Status: Chronic Assessment and plan: Stable with current medication Qualifiers: Hypertension type: essential hypertension Qualified Code(s): I10 - Essential (primary) hypertension (5) DM2 (diabetes mellitus, type 2) Current Visit: No Status: Acute Assessment and plan: Continue sliding scale insulin and basal insulin Qualifiers: Diabetes mellitus group home insulin use: with intermediate accountant use Diabetes mellitus complication status: with hyperosmolarity Diabetes mellitus complication detail: without coma Qualified Code(s): E11.00 - Type 2 diabetes mellitus with hyperosmolarity without nonketotic hyperglycemic-hyperosmolar coma ([facility]); Z79.4 - intermediate accountant (current) use of insulin (6) NEHEMIAH (obstructive sleep apnea) Current Visit: No Status: Resolved Assessment and plan: On CPAP, compliant in hospital (7) DVT prophylaxis Current Visit: No Status: Acute Assessment and plan: Heparin subcutaneous - Time Spent With Patient Total time spent is greater than 50% in coordination of care (as documented) at patient's floor/unit and/or counseling patient: - Subjective Interval history: Patient's creatinine still continues to be elevated after hemodialysis; nephrology following Patient's Zosyn was discontinued today and started on ceftriaxone per recommendations of infectious disease - Constitutional Vitals: Temp Pulse Resp BP Pulse Ox 98.6 F 63 20 147/77 94 04/16/18 16:55 04/16/18 16:55 04/16/18 16:55 04/16/18 16:55 04/16/18 16:55 General appearance: Present: A&O X 3, morbidly obese, no acute distress - Respiratory Respiratory exam: Present: CTAB. Absent: accessory muscle use, rales, rhonchi, wheezes - Cardiovascular Cardiovascular exam: Present: RRR, +S1, +S2. Absent: diastolic murmur, gallop, rubs, systolic murmur Internal Medicine: Result - Labs CBC & Chem 7: 04/16/18 17:17 04/16/18 06:26 Labs: Short CBC 04/16/18 04/16/18 Range/Units 06:26 17:17 WBC 9.7 10.1 (4.3-11.1) K/mcL Hgb 8.8 L 7.9 L (12.9-16.9) g/dL Hct 25.2 L 22.8 L (37.5-50.1) % Plt Count 448 H 449 H (140-400) K/mcL Neutrophils # 7.2 (1.6-8.9) K/mcL BMP 04/16/18 06:26 Sodium 134 L Potassium 5.5 H Chloride 102 Carbon Dioxide 18 L BUN 53 H Creatinine 6.29 H Glucose 228 H Calcium 8.1 L - ABG Interpretation ABG results: PT/INR, D-dimer PT 12.8 Seconds (9.4-12.1) H 04/08/18 11:37 Consult Discharge Plan - Plan Referrals: Agueda Rahman CNP [Advanced Practice Nurse] - 05/09/18 8:40 am Dolly Garcia CNP [Primary Care Provider] -
[2018-04-17] MEDS: *HR* Heparin 5,000 UNIT/ML VIAL SQ SCH ×4 (00:37→23:59)
[2018-04-17 05:47] LABS: Hematocrit 24.4 % (37.5-50.1); Hemoglobin 8.1 g/dL (12.9-16.9); Mean Corpuscular HGB Conc 33.2 g/dL (31.6-35.5); Mean Corpuscular Hemoglobin 27.6 pg (28.0-33.3); Mean Corpuscular Volume 83.3 fL (83.0-100.0); Mean Platelet Volume 8.9 fL (9.4-12.4); Platelet Count 431 K/mcL (140-400); Red Blood Count 2.93 M/mcL (4.19-5.50); Red Cell Distribution Width 14.1 % (11.5-14.5)
[2018-04-17 06:07] LABS: Calcium 8.4 mg/dL (8.6-10.3); Potassium 4.3 mEq/L (3.5-5.1)
[2018-04-17] MEDS: Insulin LISPRO 300 UNITS/3 ML VIAL SQ SCH ×4 (08:31→21:30)
[2018-04-17] MEDS: cefTRIAXone 2,000 MG in Water for inj. (sterile) 20 ML 20 ML IVP SCH (08:33)
[2018-04-17] MEDS: Cyanocobalamin (B-12) 1,000 MCG TABLET PO SCH (08:34)
[2018-04-17] MEDS: Gabapentin 100 MG CAPSULE PO SCH ×2 (08:34→21:29)
[2018-04-17] MEDS: Insulin DETEMIR 100 UNIT/ML X5UNITS SQ SCH ×2 (08:37→21:29)
[2018-04-17] MEDS: ARIPiprazole 10 MG TABLET PO SCH (08:37)
--- NOTE | 2018-04-17 10:11 | Infectious Disease Progress No ---
Date of Encounter: 04/17/18 Time of Encounter: 10:09 - Assessment and Plan (1) Sepsis Current Visit: Yes Status: Resolved The patient had two SIRS criteria on admission. Likely secondary to right foot infection and OM. Resolved. Afebrile. WBC normalized. Blood cultures drawn 04/08/18 are negative x 2 sets. Qualifiers: Sepsis type: sepsis due to unspecified organism Qualified Code(s): A41.9 - Sepsis, unspecified organism (2) Osteomyelitis Current Visit: Yes Status: Acute Causative organism: GCS and MSSA. Location: Right foot talus and navicularis. Likely secondary to right foot DFU. X-ray of the right foot completed 04/08/18 showed bony erosion of the talus and navicularis. ESR 106, CRP >300. Podiatry consulted and following. Status post I&D of the right ankle/foot, removal of hardware, and bone biopsy. Operative note was reviewed. Purulence noted Intra-Op adjacent to the hardware. Intraoperative cultures are positive for MSSA. Pathology positive for OM of the talus bone. Wound care and activity restrictions as outlined by the podiatry team. The patient may require additional washout of the foot at some point. Continue Rocephin 2 grams IV daily. Duration of treatment depends on the clinical picture, but likely 6 weeks of IV antibiotics. Continue to monitor renal function. Consult VAT prior to discharge for EPIV placement. Will need weekly CBC, BUN/Cr, ESR, CRP. Will need weekly IV care. Follow up with ID 05/09/18 at 0840. Qualifiers: Osteomyelitis type: other acute Osteomyelitis location: foot Laterality: right Qualified Code(s): M86.171 - Other acute osteomyelitis, right ankle and foot (3) Abscess of right foot Current Visit: Yes Status: Acute Location: Right foot. Causative organism: GCS and MSSA. Status post I & D 04/09/[address] Mercer. Antibiotics as above. (4) YESENIA (acute kidney injury) Current Visit: Yes Status: Acute YESENIA on CKD. Serum creatinine improved after HD yesterday. Urine output 850 yesterday. Etiology unclear, but likely multifactorial: hypotension post-op, Vancomycin, dehydration Continue to trend. Nephrology consulted and following. HD initiated 04/13/18. RP UTS negative. Avoid additional nephrotoxins. Dose-adjust antibiotics as needed. (5) Diabetic foot ulcer Current Visit: Yes Status: Acute Etiology unclear. Podiatry consulted and following. Qualifiers: Diabetic foot ulcer location: heel Diabetes mellitus type: type 2 Laterality: right Non-pressure ulcer stage: unspecified non-pressure ulcer stage Qualified Code(s): E11.621 - Type 2 diabetes mellitus with foot ulcer; L97.419 - Non-pressure chronic ulcer of right heel and midfoot with unspecified severity (6) Charcot foot due to diabetes mellitus Current Visit: No Status: Acute Status post reconstruction 10/[address] Mercer. (7) HTN (hypertension) Current Visit: No Status: Chronic Qualifiers: Hypertension type: essential hypertension Qualified Code(s): I10 - Essential (primary) hypertension (8) DM2 (diabetes mellitus, type 2) Current Visit: No Status: Acute Uncontrolled. HgbA1C 9.4%. Recommend aggressive glucose monitoring and control to promote wound healing and prevent re-infection. Management per the primary team. Qualifiers: Diabetes mellitus shelter insulin use: with shelter use Diabetes mellitus complication status: with hyperosmolarity Diabetes mellitus complication detail: without coma Qualified Code(s): E11.00 - Type 2 diabetes mellitus with hyperosmolarity without nonketotic hyperglycemic-hyperosmolar coma ([facility]); Z79.4 - detention (current) use of insulin (9) NEHEMIAH (obstructive sleep apnea) Current Visit: No Status: Resolved (10) Morbid obesity with BMI of 50.0-59.9, adult Current Visit: No Status: Acute - Subjective Interval history: Patient seen and examined. No acute events noted overnight. Status post temporary dialysis catheter placement with HD initiation on 04/13/18. Status post I & D of the right ankle with removal of hardware and bone biopsy 04/09/18. He states overall he feels okay. Denies fevers, chills, or rigors. He denies chest pain, shortness of breath, or cough. Denies nausea, vomiting, diarrhea, or constipation. Denies abdominal pain or appetite changes. Denies oral thrush or skin lesions. Denies pain at surgical site. Infect Dis PN-Objective Data - Labs CBC & Chem 7: 04/18/18 05:51 04/18/18 05:51 Labs: Laboratory Results - last 24 hr 04/16/18 04/16/18 04/16/18 06:26 14:36 16:58 WBC RBC Hgb Hct MCV MCH MCHC RDW Plt Count MPV Seg Neutrophils % 70.0 Band Neutrophils % 4.0 Lymphocytes % 16.0 Monocytes % 6.0 Eosinophils % 4.0 Neutrophils # 7.2 Lymphocytes # 1.6 Monocytes # 0.6 Eosinophils # 0.4 Platelet Estimate Slight increase H Sodium Potassium Chloride Carbon Dioxide BUN Creatinine Est GFR ( Amer) Est GFR (Non-Af Amer) BUN/Creatinine Ratio Glucose POC Glucose 154 H 195 H Calculated Osmolality Calcium Ur Eosinophil Smear 04/16/18 04/17/18 04/17/18 17:17 04:45 05:37 WBC 10.1 RBC 2.74 L Hgb 7.9 L Hct 22.8 L MCV 83.2 MCH 28.8 MCHC 34.6 RDW 14.1 Plt Count 449 H MPV 8.7 L Seg Neutrophils % Band Neutrophils % Lymphocytes % Monocytes % Eosinophils % Neutrophils # Lymphocytes # Monocytes # Eosinophils # Platelet Estimate Sodium 137 Potassium 4.3 Chloride 102 Carbon Dioxide 25 BUN 37 H Creatinine 4.52 H Est GFR ( Amer) 17 L Est GFR (Non-Af Amer) 14 L BUN/Creatinine Ratio 8 Glucose 186 H POC Glucose Calculated Osmolality 298 Calcium 8.4 L Ur Eosinophil Smear 0 04/17/18 05:37 WBC 7.8 RBC 2.93 L Hgb 8.1 L Hct 24.4 L MCV 83.3 MCH 27.6 L MCHC 33.2 RDW 14.1 Plt Count 431 H MPV 8.9 L Seg Neutrophils % Band Neutrophils % Lymphocytes % Monocytes % Eosinophils % Neutrophils # Lymphocytes # Monocytes # Eosinophils # Platelet Estimate Sodium Potassium Chloride Carbon Dioxide BUN Creatinine Est GFR ( Amer) Est GFR (Non-Af Amer) BUN/Creatinine Ratio Glucose POC Glucose Calculated Osmolality Calcium Ur Eosinophil Smear Cultures: Cultures 04/09/18 23:09 Anaerobic Culture - Final Right Foot No anaerobes were recovered. 04/08/18 14:48 Blood Culture - Final Peripheral Venipuncture No growth. 04/09/18 23:09 Wound Culture - Final Right Foot Staphylococcus aureus Serology 04/17/18 04/13/18 04/11/18 Range/Units 04:45 09:42 14:50 Urine Color (Yellow) Urine Clarity (Clear) Urine pH (5.0-8.0) pH Units Ur Specific [place] (1.010-1.025) Urine Protein (Neg-Trace) mg/dL Urine Glucose (UA) (Normal) mg/dL Urine Ketones (Negative) mg/dL Urine Blood (Negative) Urine Nitrite (Negative) Urine Bilirubin (Negative) Urine Urobilinogen (Normal) mg/dL Ur Leukocyte Esterase (Negative) Urine Microscopic RBC (0-3) per hpf Urine Microscopic WBC (0-3) per hpf Ur Eosinophil Smear 0 (None Seen) % Ur Squamous Epith Cells (None-Few) per lpf Amorphous Sediment (Few) Urine Bacteria (None-Few) per hpf Hyaline Casts (None-Few) per lpf Urine Yeast Ur Culture Indicated? (NO) Urine Creatinine 140 mg/dL Protein/Creatinin Ratio 1.31 H (0.00-0.20) mg/mg Urine Sodium 35.9 mEq/L Urine Total Protein 184 H (1-14) mg/dL Hep Bs Antigen Nonreactive (Nonreactive) Hep Bs Antibody 0.95 mIU/mL 04/11/18 Range/Units 14:50 Urine Color Yellow (Yellow) Urine Clarity Turbid A (Clear) Urine pH 5.5 (5.0-8.0) pH Units Ur Specific [place] 1.020 (1.010-1.025) Urine Protein 100 H (Neg-Trace) mg/dL Urine Glucose (UA) 100 H (Normal) mg/dL Urine Ketones Negative (Negative) mg/dL Urine Blood Large H (Negative) Urine Nitrite Negative (Negative) Urine Bilirubin Negative (Negative) Urine Urobilinogen Normal (Normal) mg/dL Ur Leukocyte Esterase Negative (Negative) Urine Microscopic RBC 5-15 H (0-3) per hpf Urine Microscopic WBC 30-50 H (0-3) per hpf Ur Eosinophil Smear (None Seen) % Ur Squamous Epith Cells Many H (None-Few) per lpf Amorphous Sediment Moderate H (Few) Urine Bacteria None Seen (None-Few) per hpf Hyaline Casts None Seen (None-Few) per lpf Urine Yeast Test Not Performed Ur Culture Indicated? NO (NO) Urine Creatinine mg/dL Protein/Creatinin Ratio (0.00-0.20) mg/mg Urine Sodium mEq/L Urine Total Protein (1-14) mg/dL Hep Bs Antigen (Nonreactive) Hep Bs Antibody mIU/mL Exam - Constitutional Vitals: Temp Pulse Resp BP Pulse Ox 97.9 F 65 16 146/84 94 04/17/18 05:10 04/17/18 05:10 04/17/18 05:10 04/17/18 05:10 04/17/18 05:10 General appearance: cooperative, morbidly obese, no acute distress - Head Head exam: Present: atraumatic, normal inspection, normocephalic - Eye Eye exam: Present: EOMI, normal appearance, PERRL Pupils: Present: normal accommodation - ENT ENT exam: Present: mucous membranes moist - Neck Neck exam: Present: normal inspection Additional comments: Temporary dialysis catheter noted to the right neck with transparent dressing C/ D/I. - Respiratory Respiratory exam: Present: wheezes (Fine expiratory wheezes throughout). Absent : rales, respiratory distress, rhonchi - Cardiovascular Cardiovascular exam: Present: RRR, +S1, +S2 - GI/Abdominal GI/Abdominal exam: Present: distended (obese), normal bowel sounds, soft. Absent: tenderness Additional comments: Latif catheter noted to be draining clear yellow urine. - Extremities Exam Extremities exam: Absent: joint swelling, pedal edema, tenderness Additional comments: Right foot dressing C/D/I. - Neurological Exam Neurological exam: Present: alert, oriented X3, no focal deficits - Psychiatric Psychiatric exam: Present: normal affect, normal mood - Skin Skin exam: Present: dry, intact, normal color, warm Consult Discharge Plan - Plan Referrals: Agueda Rahman CNP [Advanced Practice Nurse] - 05/09/18 8:40 am Dolly Garcia CNP [Primary Care Provider] - - Attending Attestation I examined this patient and my medical decision-making was reviewed with the Resident Physician. I agree with the documented findings, disposition and treatment plan as described except to the extent set forth below.
[2018-04-17] MEDS: traMADol 50 MG TABLET PO PRN (12:47)
--- NOTE | 2018-04-17 13:59 | Nephrology Progress Note ---
Date of Encounter: 04/17/18 Time of Encounter: 13:57 - Assessment and Plan (1) YESENIA (acute kidney injury) Current Visit: Yes Status: Acute Scr 4.52 GFR 14 with HD on hold for today and watch for signs of renal recovery. Continue to avoid nephrotoxins and renal dose all medications. Urine Eosonophil noted. UOP 850 yesterday and 200 today. Strict I/O. (2) Abscess of right foot Current Visit: Yes Status: Acute Per podiatry. (3) Diabetic foot ulcer Current Visit: Yes Status: Acute See above. Qualifiers: Diabetic foot ulcer location: heel Diabetes mellitus type: type 2 Laterality: right Non-pressure ulcer stage: unspecified non-pressure ulcer stage Qualified Code(s): E11.621 - Type 2 diabetes mellitus with foot ulcer; L97.419 - Non-pressure chronic ulcer of right heel and midfoot with unspecified severity (4) Hyponatremia syndrome Current Visit: Yes Status: Acute NA 137, no signs/symptoms of Hyponatremia. Subjective Principal diagnosis: RLE swelling/bleeding Interval history: Pt seen and examine. No c/o of nausea/vomiting/diarrhea. Objective - Vital Signs Vital signs: Vital Signs Temp Pulse Resp BP Pulse Ox 04/17/18 10:51 95 04/17/18 10:30 98.1 F 58 16 162/83 95 04/17/18 05:10 97.9 F 65 16 146/84 94 04/16/18 23:41 98.7 F 64 16 130/75 93 04/16/18 19:57 98.2 F 62 18 154/88 94 04/16/18 16:55 98.6 F 63 20 147/77 94 Intake and Output 04/16/18 04/17/18 04/17/18 23:59 07:59 15:59 Intake Total 480 / 480 0 / 0 1080 / 1080 Output Total 250 / 250 250 / 250 150 / 150 Balance 230 / 230 -250 / -250 930 / 930 Intake: Oral 480 / 480 0 / 0 1080 / 1080 Output: Urine 0 / 0 200 / 200 Catheter 250 / 250 50 / 50 150 / 150 Urethral (Latif) 0 / 0 Other: Meal Nourishment/Supplement Lunch Percent of Meal Consumed 100% 100% Weight 187.3 kg Blood Glucose* 194 150 182 Patient Weight 04/17/18 23:59 Weight 187.3 kg - General Appearance General appearance: Present: obese, frail EENT: Present: ATNC, hearing intact, vision intact Neck: Present: supple Respiratory: Present: clear Cardiology: Present: no edema, normal S1, normal S2 Dialysis Vascular Access: Venous Catheter (Temp line, DRSG C/D/I.) Gastrointestinal: Present: normoactive bowel sounds, no tenderness, no guarding Integumentary: Present: no rash, warm and dry Neurologic: Present: alert and oriented x3 Psychiatric: Present: mood/affect appropriate, cooperative - Lab 04/17/18 05:37 04/17/18 05:37 Most recent lab results Calcium 8.4 mg/dL (8.6-10.3) L 04/17/18 05:37 Phosphorus 5.3 mg/dL (2.7-4.5) H 04/12/18 08:56 Magnesium 1.8 mg/dL (1.6-2.6) 04/12/18 08:56 Urine Creatinine 140 mg/dL 04/11/18 14:50 Urine Sodium 35.9 mEq/L 04/11/18 14:50 Urine Total Protein 184 mg/dL (1-14) H 04/11/18 14:50 Consult Discharge Plan - Plan Referrals: Agueda Rahman CNP [Advanced Practice Nurse] - 05/09/18 8:40 am Dolly Garcia CNP [Primary Care Provider] -
[2018-04-17] MEDS: Acetaminophen 325 MG TABLET PO PRN (14:54)
--- NOTE | 2018-04-17 16:27 | Podiatry Progress Note ---
Date of Encounter: 04/17/18 Time of Encounter: 12:00 - Assessment and Plan (1) Osteomyelitis Current Visit: Yes Status: Acute s/p incision and drainage of right ankle/foot, removal of right ankle/foot hardware, bone biopsy talus, bone biopsy navicular per on 04/09/18 Dressing removed at bedside Flushed with saline Repacked Bulk dressing and posterior splint reapplied To remain NWB Dr gomez plans for bedside closure of wound tomorrow with application of wound vac Will need SW on board for wound vac management once discharged Continue IV antibiotics + SA and Group C strep. Qualifiers: Osteomyelitis type: other acute Osteomyelitis location: foot Laterality: right Qualified Code(s): M86.171 - Other acute osteomyelitis, right ankle and foot (2) Charcot foot due to diabetes mellitus Current Visit: No Status: Acute Subjective Principal diagnosis: RLE swelling/bleeding Interval history: Mr. Bowen is a 47 year old diabetic male with previous surgery for his right foot/ankle charcot. He developed infection of the right foot and underwent incision and drainage of right ankle/foot, removal of right ankle/foot hardware , bone biopsy talus, bone biopsy navicular per on 04/09/18 Patient resting comfortably in bed at this time. Denies any pain. Posterior splint and dressing intact. Patient denies any fevers, chills, n/v or flu like symptoms. Patient was held for surgery related to elevated creatine and being placed on HD. Patient states he feels fine right now Objective - Vital Signs Vital Signs: Vital Signs Temp Pulse Resp BP Pulse Ox 04/17/18 14:37 97.7 F 60 14 160/92 96 04/17/18 10:51 95 04/17/18 10:30 98.1 F 58 16 162/83 95 04/17/18 05:10 97.9 F 65 16 146/84 94 04/16/18 23:41 98.7 F 64 16 130/75 93 04/16/18 19:57 98.2 F 62 18 154/88 94 04/16/18 16:55 98.6 F 63 20 147/77 94 Intake and Output 04/17/18 04/17/18 04/17/18 07:59 15:59 23:59 Intake Total 0 / 0 1080 / 1080 Output Total 250 / 250 550 / 550 Balance -250 / -250 530 / 530 Intake: Oral 0 / 0 1080 / 1080 Output: Urine 200 / 200 Catheter 50 / 50 550 / 550 Other: Meal Lunch Percent of Meal Consumed 100% Weight 187.3 kg Blood Glucose* 150 182 Patient Weight 04/17/18 23:59 Weight 187.3 kg - Exam Exam: General Examination: CONSTITUTIONAL: Alert, oriented, in no acute distress, non-toxic. EXTREMITIES: CFT 3 seconds all toes. Edema +1 and pedal pulses palpable. SKIN: Skin with decreased turgor, decreased subcutaneous tissue, skin thin and shiny with trophic changes associated with comorbidities as described in history.. NEUROLOGIC: Minimal sensation to light or moderate touch Surgical line to lateral aspect of right leg- Retention sutures intact, packing removed. Minimal drainage noted. No odor. Surrounding erythema and edema has resolved and is minimal. No warmth. No pockets or areas of fluid collection were noted during inspection. Movement remains intact to toes. - Lab Result Diagrams: 04/17/18 05:37 04/17/18 05:37 Labs: Abnormal lab results RBC 2.93 M/mcL (4.19-5.50) L 04/17/18 05:37 Hgb 8.1 g/dL (12.9-16.9) L 04/17/18 05:37 Hct 24.4 % (37.5-50.1) L 04/17/18 05:37 MCH 27.6 pg (28.0-33.3) L 04/17/18 05:37 Plt Count 431 K/mcL (140-400) H 04/17/18 05:37 MPV 8.9 fL (9.4-12.4) L 04/17/18 05:37 Immature Gran % 6.9 % (0-4) H 04/13/18 15:02 Metamyelocytes % 2.0 % (0) H 04/11/18 08:13 Nucleated RBCs/100 WBC 0.2 /100 WBC (0) H 04/16/18 06:26 Platelet Estimate Slight increase (Normal) H 04/16/18 06:26 ESR 106 mm/hr (0-10) H 04/08/18 18:00 PT 12.8 Seconds (9.4-12.1) H 04/08/18 11:37 BUN 37 mg/dL (6-20) H 04/17/18 05:37 Creatinine 4.52 mg/dL (0.70-1.30) H 04/17/18 05:37 Est GFR ( Amer) 17 (> 60) L 04/17/18 05:37 Est GFR (Non-Af Amer) 14 (> 60) L 04/17/18 05:37 Glucose 186 mg/dL (70-105) H 04/17/18 05:37 POC Glucose 195 mg/dL (70-99) H 04/16/18 16:58 Hemoglobin A1c 9.4 % (-5.6) H 04/09/18 06:56 Calcium 8.4 mg/dL (8.6-10.3) L 04/17/18 05:37 Phosphorus 5.3 mg/dL (2.7-4.5) H 04/12/18 08:56 Creatine Kinase 277 Units/L (30-223) H 04/13/18 15:02 C-Reactive Protein > 300 mg/L (Less than 10) H 04/08/18 18:00 Urine Clarity Turbid (Clear) A 04/11/18 14:50 Urine Protein 100 mg/dL (Neg-Trace) H 04/11/18 14:50 Urine Glucose (UA) 100 mg/dL (Normal) H 04/11/18 14:50 Urine Blood Large (Negative) H 04/11/18 14:50 Urine Microscopic RBC 5-15 per hpf (0-3) H 04/11/18 14:50 Urine Microscopic WBC 30-50 per hpf (0-3) H 04/11/18 14:50 Ur Squamous Epith Cells Many per lpf (None-Few) H 04/11/18 14:50 Amorphous Sediment Moderate (Few) H 04/11/18 14:50 Protein/Creatinin Ratio 1.31 mg/mg (0.00-0.20) H 04/11/18 14:50 Urine Total Protein 184 mg/dL (1-14) H 04/11/18 14:50 Vancomycin Trough 30 mcg/mL (5-10) H 04/10/18 12:44 Consult Discharge Plan - Plan Referrals: Agueda Rahman CNP [Advanced Practice Nurse] - 05/09/18 8:40 am Dolly Garcia CNP [Primary Care Provider] -
--- NOTE | 2018-04-17 19:13 | Internal Med Progress Note ---
Date of Encounter: 04/18/18 Time of Encounter: 11:00 - Assessment and plan (1) Acute on chronic renal failure Current Visit: Yes Status: Acute Assessment and plan: Patient's creatinine improving this morning 6.29 yesterday to 4.52 today Nephrology following and appreciate continue recommendations Qualifiers: Chronic kidney disease stage: stage 3 (moderate) Qualified Code(s): N17.9 - Acute kidney failure, unspecified; N18.3 - Chronic kidney disease, stage 3 ( moderate) (2) Osteomyelitis Current Visit: Yes Status: Acute Assessment and plan: Continue ceftriaxone 2 g IV daily per infectious disease recommendations Recommendations for 6 week course of IV antibiotic treatment as an outpatient Podiatry with plans for bedside closure of the wound on 04/18/18 and for application of wound VAC Qualifiers: Osteomyelitis type: other acute Osteomyelitis location: foot Laterality: right Qualified Code(s): M86.171 - Other acute osteomyelitis, right ankle and foot (3) Sepsis Current Visit: Yes Status: Resolved Assessment and plan: Resolved; secondary to the above Qualifiers: Sepsis type: sepsis due to unspecified organism Qualified Code(s): A41.9 - Sepsis, unspecified organism (4) HTN (hypertension) Current Visit: No Status: Chronic Assessment and plan: Stable with current medication Qualifiers: Hypertension type: essential hypertension Qualified Code(s): I10 - Essential (primary) hypertension (5) DM2 (diabetes mellitus, type 2) Current Visit: No Status: Acute Assessment and plan: Continue sliding scale insulin and basal insulin Qualifiers: Diabetes mellitus prison insulin use: with prison use Diabetes mellitus complication status: with hyperosmolarity Diabetes mellitus complication detail: without coma Qualified Code(s): E11.00 - Type 2 diabetes mellitus with hyperosmolarity without nonketotic hyperglycemic-hyperosmolar coma ([facility]); Z79.4 - USP (current) use of insulin (6) NEHEMIHA (obstructive sleep apnea) Current Visit: No Status: Resolved Assessment and plan: On CPAP, compliant in hospital (7) DVT prophylaxis Current Visit: No Status: Acute Assessment and plan: Heparin subcutaneous - Time Spent With Patient Total time spent is greater than 50% in coordination of care (as documented) at patient's floor/unit and/or counseling patient: - Subjective Interval history: Patient's creatinine improving this morning Plans for bedside closure of wound of foot on 04/18/18 by podiatry - Constitutional Vitals: Temp Pulse Resp BP Pulse Ox 97.7 F 60 14 160/92 96 04/17/18 14:37 04/17/18 14:37 04/17/18 14:37 04/17/18 14:37 04/17/18 14:37 General appearance: Present: A&O X 3, morbidly obese, no acute distress - Respiratory Respiratory exam: Present: CTAB. Absent: accessory muscle use, rales, rhonchi, wheezes - Cardiovascular Cardiovascular exam: Present: RRR, +S1, +S2. Absent: diastolic murmur, gallop, rubs, systolic murmur Internal Medicine: Result - Labs CBC & Chem 7: 04/18/18 05:51 04/18/18 05:51 Labs: Short CBC 04/17/18 Range/Units 05:37 WBC 7.8 (4.3-11.1) K/mcL Hgb 8.1 L (12.9-16.9) g/dL Hct 24.4 L (37.5-50.1) % Plt Count 431 H (140-400) K/mcL BMP 04/17/18 05:37 Sodium 137 Potassium 4.3 Chloride 102 Carbon Dioxide 25 BUN 37 H Creatinine 4.52 H Glucose 186 H Calcium 8.4 L - ABG Interpretation ABG results: PT/INR, D-dimer PT 12.8 Seconds (9.4-12.1) H 04/08/18 11:37 Consult Discharge Plan - Plan Referrals: Agueda Rahman CNP [Advanced Practice Nurse] - 05/09/18 8:40 am Dolly Garcia CNP [Primary Care Provider] -
[2018-04-18] MEDS: traMADol 50 MG TABLET PO PRN ×2 (04:14→14:25)
[2018-04-18 06:37] LABS: Hemoglobin 8.1 g/dL (12.9-16.9); Mean Corpuscular HGB Conc 32.4 g/dL (31.6-35.5); Mean Corpuscular Hemoglobin 27.3 pg (28.0-33.3); Mean Corpuscular Volume 84.2 fL (83.0-100.0); Platelet Count 497 K/mcL (140-400); Red Blood Count 2.97 M/mcL (4.19-5.50); Red Cell Distribution Width 14.2 % (11.5-14.5)
[2018-04-18 07:01] LABS: Calcium 8.5 mg/dL (8.6-10.3); Potassium 4.8 mEq/L (3.5-5.1)
[2018-04-18] MEDS ORDERED: 0.9 % Sodium Chloride 250 ML IVC PRN (07:38)
[2018-04-18] MEDS ORDERED: *HR* Heparin 10,000 UNIT/10 ML VIAL IV PRN (07:38)
[2018-04-18] MEDS: Insulin LISPRO 300 UNITS/3 ML VIAL SQ SCH ×4 (07:45→21:36)
[2018-04-18] MEDS ORDERED: 0.9 % Sodium Chloride 1,000 ML PRIME SCH (07:45)
[2018-04-18] MEDS ORDERED: 0.9 % Sodium Chloride 1,000 ML ONE (08:28)
--- NOTE | 2018-04-18 09:03 | Infectious Disease Progress No ---
Date of Encounter: 04/18/18 Time of Encounter: 09:01 - Assessment and Plan (1) Sepsis Current Visit: Yes Status: Resolved The patient had two SIRS criteria on admission. Likely secondary to right foot infection and OM. Resolved. Afebrile. WBC normalized. Blood cultures drawn 04/08/18 are negative x 2 sets. Qualifiers: Sepsis type: sepsis due to unspecified organism Qualified Code(s): A41.9 - Sepsis, unspecified organism (2) Osteomyelitis Current Visit: Yes Status: Acute Causative organism: GCS and MSSA. Location: Right foot talus and navicularis. Likely secondary to right foot DFU. X-ray of the right foot completed 04/08/18 showed bony erosion of the talus and navicularis. ESR 106, CRP >300. Podiatry consulted and following. Status post I&D of the right ankle/foot, removal of hardware, and bone biopsy. Operative note was reviewed. Purulence noted Intra-Op adjacent to the hardware. Intraoperative cultures are positive for MSSA. Pathology positive for OM of the talus bone. Wound care and activity restrictions as outlined by the podiatry team. Per the podiatry notes, planning on bedside closure of the wound today with wound VAC placement. Continue Rocephin 2 grams IV daily. Duration of treatment depends on the clinical picture, but likely 6 weeks of IV antibiotics. Continue to monitor renal function. Consult VAT prior to discharge for EPIV placement. Will need weekly CBC, BUN/Cr, ESR, CRP. Will need weekly IV care. Follow up with ID 05/09/18 at 0840. Qualifiers: Osteomyelitis type: other acute Osteomyelitis location: foot Laterality: right Qualified Code(s): M86.171 - Other acute osteomyelitis, right ankle and foot (3) Abscess of right foot Current Visit: Yes Status: Acute Location: Right foot. Causative organism: GCS and MSSA. Status post I & D 04/09/[address] Mercer. Antibiotics as above. (4) YESENIA (acute kidney injury) Current Visit: Yes Status: Acute YESENIA on CKD. Serum creatinine improved after HD yesterday. Urine output 600 yesterday. Etiology unclear, but likely multifactorial: hypotension post-op, Vancomycin, dehydration Continue to trend. Nephrology consulted and following. HD initiated 04/13/18. RP UTS negative. Avoid additional nephrotoxins. Dose-adjust antibiotics as needed. (5) Diabetic foot ulcer Current Visit: Yes Status: Acute Etiology unclear. Podiatry consulted and following. Qualifiers: Diabetic foot ulcer location: heel Diabetes mellitus type: type 2 Laterality: right Non-pressure ulcer stage: unspecified non-pressure ulcer stage Qualified Code(s): E11.621 - Type 2 diabetes mellitus with foot ulcer; L97.419 - Non-pressure chronic ulcer of right heel and midfoot with unspecified severity (6) Charcot foot due to diabetes mellitus Current Visit: No Status: Acute Status post reconstruction 10/[address] Mercer. (7) HTN (hypertension) Current Visit: No Status: Chronic Qualifiers: Hypertension type: essential hypertension Qualified Code(s): I10 - Essential (primary) hypertension (8) DM2 (diabetes mellitus, type 2) Current Visit: No Status: Chronic Uncontrolled. HgbA1C 9.4%. Recommend aggressive glucose monitoring and control to promote wound healing and prevent re-infection. Management per the primary team. Qualifiers: Diabetes mellitus power hair clipper insulin use: with correction use Diabetes mellitus complication status: with hyperosmolarity Diabetes mellitus complication detail: without coma Qualified Code(s): E11.00 - Type 2 diabetes mellitus with hyperosmolarity without nonketotic hyperglycemic-hyperosmolar coma (NKHHC); Z79.4 - procedures tech (current) use of insulin (9) NEHEMIAH (obstructive sleep apnea) Current Visit: No Status: Resolved (10) Morbid obesity with BMI of 50.0-59.9, adult Current Visit: No Status: Acute - Subjective Interval history: Patient seen and examined. No acute events noted overnight. Status post temporary dialysis catheter placement with HD initiation on 04/13/18. Status post I & D of the right ankle with removal of hardware and bone biopsy 04/09/18. He states overall he feels okay. Denies fevers, chills, or rigors. He denies chest pain, shortness of breath, or cough. Denies nausea, vomiting, diarrhea, or constipation. Denies abdominal pain or appetite changes. Denies oral thrush or skin lesions. Denies pain at surgical site. Infect Dis PN-Objective Data - Labs CBC & Chem 7: 04/19/18 04:00 04/19/18 04:00 Labs: Laboratory Results - last 24 hr 0604/17/18 04/17/18 20:59 07:26 11:17 WBC RBC Hgb Hct MCV MCH MCHC RDW Plt Count MPV Sodium Potassium Chloride Carbon Dioxide BUN Creatinine Est GFR ( Amer) Est GFR (Non-Af Amer) BUN/Creatinine Ratio Glucose POC Glucose 194 H 150 H 182 H Calculated Osmolality Calcium 04/17/18 04/17/18 04/18/18 16:30 20:55 05:51 WBC RBC Hgb Hct MCV MCH MCHC RDW Plt Count MPV Sodium 137 Potassium 4.8 Chloride 103 Carbon Dioxide 23 BUN 48 H Creatinine 5.56 H Est GFR ( Amer) 13 L Est GFR (Non-Af Amer) 11 L BUN/Creatinine Ratio 9 Glucose 149 H POC Glucose 186 H 238 H Calculated Osmolality 299 Calcium 8.5 L 04/18/18 05:51 WBC 9.1 RBC 2.97 L Hgb 8.1 L Hct 25.0 L MCV 84.2 MCH 27.3 L MCHC 32.4 RDW 14.2 Plt Count 497 H MPV 9.0 L Sodium Potassium Chloride Carbon Dioxide BUN Creatinine Est GFR ( Amer) Est GFR (Non-Af Amer) BUN/Creatinine Ratio Glucose POC Glucose Calculated Osmolality Calcium Cultures: Cultures 04/09/18 23:09 Anaerobic Culture - Final Right Foot No anaerobes were recovered. 04/08/18 14:48 Blood Culture - Final Peripheral Venipuncture No growth. 04/09/18 23:09 Wound Culture - Final Right Foot Staphylococcus aureus Serology 04/17/18 04/13/18 04/11/18 Range/Units 04:45 09:42 14:50 Urine Color (Yellow) Urine Clarity (Clear) Urine pH (5.0-8.0) pH Units Ur Specific [place] (1.010-1.025) Urine Protein (Neg-Trace) mg/dL Urine Glucose (UA) (Normal) mg/dL Urine Ketones (Negative) mg/dL Urine Blood (Negative) Urine Nitrite (Negative) Urine Bilirubin (Negative) Urine Urobilinogen (Normal) mg/dL Ur Leukocyte Esterase (Negative) Urine Microscopic RBC (0-3) per hpf Urine Microscopic WBC (0-3) per hpf Ur Eosinophil Smear 0 (None Seen) % Ur Squamous Epith Cells (None-Few) per lpf Amorphous Sediment (Few) Urine Bacteria (None-Few) per hpf Hyaline Casts (None-Few) per lpf Urine Yeast Ur Culture Indicated? (NO) Urine Creatinine 140 mg/dL Protein/Creatinin Ratio 1.31 H (0.00-0.20) mg/mg Urine Sodium 35.9 mEq/L Urine Total Protein 184 H (1-14) mg/dL Hep Bs Antigen Nonreactive (Nonreactive) Hep Bs Antibody 0.95 mIU/mL 04/11/18 Range/Units 14:50 Urine Color Yellow (Yellow) Urine Clarity Turbid A (Clear) Urine pH 5.5 (5.0-8.0) pH Units Ur Specific [place] 1.020 (1.010-1.025) Urine Protein 100 H (Neg-Trace) mg/dL Urine Glucose (UA) 100 H (Normal) mg/dL Urine Ketones Negative (Negative) mg/dL Urine Blood Large H (Negative) Urine Nitrite Negative (Negative) Urine Bilirubin Negative (Negative) Urine Urobilinogen Normal (Normal) mg/dL Ur Leukocyte Esterase Negative (Negative) Urine Microscopic RBC 5-15 H (0-3) per hpf Urine Microscopic WBC 30-50 H (0-3) per hpf Ur Eosinophil Smear (None Seen) % Ur Squamous Epith Cells Many H (None-Few) per lpf Amorphous Sediment Moderate H (Few) Urine Bacteria None Seen (None-Few) per hpf Hyaline Casts None Seen (None-Few) per lpf Urine Yeast Test Not Performed Ur Culture Indicated? NO (NO) Urine Creatinine mg/dL Protein/Creatinin Ratio (0.00-0.20) mg/mg Urine Sodium mEq/L Urine Total Protein (1-14) mg/dL Hep Bs Antigen (Nonreactive) Hep Bs Antibody mIU/mL Exam - Constitutional Vitals: Temp Pulse Resp BP Pulse Ox 97.6 F 52 18 158/78 96 04/18/18 07:30 04/18/18 07:30 04/18/18 07:30 04/18/18 07:30 04/18/18 07:30 General appearance: cooperative, morbidly obese, no acute distress - Head Head exam: Present: atraumatic, normal inspection, normocephalic - Eye Eye exam: Present: EOMI, normal appearance, PERRL Pupils: Present: normal accommodation - ENT ENT exam: Present: mucous membranes moist - Neck Neck exam: Present: normal inspection Additional comments: Temporary dialysis catheter noted to the right neck with transparent dressing C/ D/I. - Respiratory Respiratory exam: Present: CTAB. Absent: rales, respiratory distress, rhonchi, wheezes - Cardiovascular Cardiovascular exam: Present: RRR, +S1, +S2 - GI/Abdominal GI/Abdominal exam: Present: normal bowel sounds, soft. Absent: distended, tenderness Additional comments: Latif catheter noted to be draining clear yellow urine. - Extremities Exam Extremities exam: Absent: pedal edema, tenderness Additional comments: Right foot dressing C/D/I. - Neurological Exam Neurological exam: Present: alert, oriented X3, no focal deficits - Psychiatric Psychiatric exam: Present: normal affect, normal mood - Skin Skin exam: Present: dry, intact, normal color, warm - VTE Documentation of Mechanical Device: Intermittent pneumatic compression device Consult Discharge Plan - Plan Referrals: Agueda Rahman CNP [Advanced Practice Nurse] - 05/09/18 8:40 am Dolly Garcia CNP [Primary Care Provider] - - Attending Attestation I examined this patient and my medical decision-making was reviewed with the Resident Physician. I agree with the documented findings, disposition and treatment plan as described except to the extent set forth below.
[2018-04-18] MEDS ORDERED: LIDOCAINE 1% PF 2 ML AMPUL IV PRN (09:05)
--- NOTE | 2018-04-18 11:30 | Nephrology Progress Note ---
<Vidhi Bowen - Last Filed: 04/18/18 11:30> Date of Encounter: 04/18/18 Time of Encounter: 11:26 - Assessment and Plan (1) YESENIA (acute kidney injury) Current Visit: Yes Status: Acute Kidney function worse today Scr 5.57, GFR 11 UOP 800ml Would like to go to [facility] if needs outpatient HD Evaluate kidney function tomorrow and make decision whether or not to place permacath and set up in outpatient HD (2) Abscess of right foot Current Visit: Yes Status: Acute per podiatry team (3) Diabetic foot ulcer Current Visit: Yes Status: Acute per podiatry team Qualifiers: Diabetic foot ulcer location: heel Diabetes mellitus type: type 2 Laterality: right Non-pressure ulcer stage: unspecified non-pressure ulcer stage Qualified Code(s): E11.621 - Type 2 diabetes mellitus with foot ulcer; L97.419 - Non-pressure chronic ulcer of right heel and midfoot with unspecified severity Subjective Principal diagnosis: RLE swelling/bleeding Interval history: Patient seen and examined while in dialysis. States he is tired but feeling well. Objective - Vital Signs Vital signs: Vital Signs Temp Pulse Resp BP Pulse Ox 04/18/18 09:20 149/81 04/18/18 09:05 173/89 04/18/18 08:50 97.4 F L 20 186/94 04/18/18 07:30 97.6 F 52 18 158/78 96 04/18/18 05:04 159/88 04/18/18 04:17 164/84 04/18/18 04:02 97.6 F 56 16 131/83 94 04/18/18 00:05 98.9 F 52 15 156/85 96 04/17/18 19:24 97.7 F 52 15 163/89 96 04/17/18 14:37 97.7 F 60 14 160/92 96 Intake and Output 04/17/18 04/18/18 04/18/18 23:59 07:59 15:59 Intake Total 120 / 120 700 / 700 600 / 600 Output Total 0 / 0 850 / 850 Balance 120 / 120 -150 / -150 600 / 600 Intake: Oral 120 / 120 700 / 700 0 / 0 Intake, Rinseback and Flushes 600 / 600 Output: Urine 0 / 0 0 / 0 Catheter 850 / 850 Other: Meal Dinner Percent of Meal Consumed 100% Weight 187.7 kg Blood Glucose* 238 118 Hemodialysis Net Fluid Removed 328 (mL) Patient Weight 04/18/18 23:59 Weight 187.7 kg - General Appearance General appearance: Present: obese EENT: Present: ATNC, mucous membranes moist, hearing intact, vision intact Neck: Present: supple Respiratory: Present: clear Cardiology: Present: no edema, normal S1, normal S2 Dialysis Vascular Access: Venous Catheter Gastrointestinal: Present: no tenderness, no guarding Integumentary: Present: warm and dry Neurologic: Present: alert and oriented x3 Psychiatric: Present: mood/affect appropriate, cooperative - Lab 04/18/18 05:51 04/18/18 05:51 Most recent lab results Calcium 8.5 mg/dL (8.6-10.3) L 04/18/18 05:51 Phosphorus 5.3 mg/dL (2.7-4.5) H 04/12/18 08:56 Magnesium 1.8 mg/dL (1.6-2.6) 04/12/18 08:56 Urine Creatinine 140 mg/dL 04/11/18 14:50 Urine Sodium 35.9 mEq/L 04/11/18 14:50 Urine Total Protein 184 mg/dL (1-14) H 04/11/18 14:50 - VTE Documentation of Mechanical Device: Intermittent pneumatic compression device Consult Discharge Plan - Plan Referrals: Agueda Rahman LAUNDRY OPERATOR W[employer] ROOM [Advanced Practice Nurse] - 05/09/18 8:40 am Dolly Garcia CNP [Primary Care Provider] - <Mykel Webb - Last Filed: 04/19/18 06:48> Date of Encounter: 04/18/18 - Assessment and Plan (1) YESENIA (acute kidney injury) Current Visit: Yes Status: Acute (2) Osteomyelitis Current Visit: Yes Status: Acute Qualifiers: Osteomyelitis type: other acute Osteomyelitis location: foot Laterality: right Qualified Code(s): M86.171 - Other acute osteomyelitis, right ankle and foot (3) Sepsis Current Visit: Yes Status: Resolved Qualifiers: Sepsis type: sepsis due to unspecified organism Qualified Code(s): A41.9 - Sepsis, unspecified organism Objective - Vital Signs Vital signs: Vital Signs Temp Pulse Resp BP Pulse Ox 04/19/18 04:23 98.3 F 51 18 136/79 98 04/19/18 00:47 98.1 F 48 18 130/70 95 04/18/18 20:16 98.9 F 50 18 142/76 96 04/18/18 13:34 98.3 F 56 19 169/88 96 04/18/18 13:22 97.8 F 18 156/66 04/18/18 12:50 134/83 04/18/18 12:35 137/68 04/18/18 12:20 135/69 04/18/18 12:05 139/73 04/18/18 11:50 146/67 04/18/18 11:35 172/109 04/18/18 11:20 154/86 04/18/18 11:05 141/74 04/18/18 10:50 134/68 04/18/18 10:35 134/64 04/18/18 10:20 150/86 04/18/18 10:05 154/75 04/18/18 09:50 164/83 04/18/18 09:35 165/87 04/18/18 09:20 149/81 04/18/18 09:05 173/89 04/18/18 08:50 97.4 F L 20 186/94 04/18/18 07:30 97.6 F 52 18 158/78 96 Intake and Output 04/18/18 04/18/18 04/19/18 15:59 23:59 07:59 Intake Total 740 / 740 0 / 0 Output Total 2850 / 2850 160 / 160 150 / 150 Balance -2110 / -2110 -160 / -160 -150 / -150 Intake: IV Fluids 20 / 20 Rocephin 2,000 MG In Water for 20 / 20 inj. (sterile) 20 ML @ 600 mls/ hr IVP DAILY [facility] Rx#:[id number] Oral 120 / 120 0 / 0 Intake, Rinseback and Flushes 600 / 600 Output: Urine 0 / 0 Total Dialysis (HD) Output 2600 / 2600 Catheter 250 / 250 160 / 160 150 / 150 Other: Meal Dinner Percent of Meal Consumed 75% # Bowel Movements 0 Weight 187.9 kg Blood Glucose* 155 Hemodialysis Net Fluid Removed 2000 (mL) Patient Weight 04/19/18 23:59 Weight 187.9 kg - Lab 04/19/18 04:00 04/19/18 04:00 Most recent lab results Calcium 8.7 mg/dL (8.6-10.3) 04/19/18 04:00 Phosphorus 5.3 mg/dL (2.7-4.5) H 04/12/18 08:56 Magnesium 1.8 mg/dL (1.6-2.6) 04/12/18 08:56 Urine Creatinine 140 mg/dL 04/11/18 14:50 Urine Sodium 35.9 mEq/L 04/11/18 14:50 Urine Total Protein 184 mg/dL (1-14) H 04/11/18 14:50 - Attending Attestation I examined this patient and my medical decision-making was reviewed with the Resident Physician/LAUNDRY OPERATOR [employer] ROOM. I agree with the documented findings, disposition and treatment plan as described except to the extent set forth below. Pt seen and examined on HD with no new complaints. SCr noted at 5.57 despite good UOP, still no clear signs of renal recovery yet. Continue HD with minimal UF. Continue to avoid nephrotoxins if possible. Will consider permcath soon and outpatient HD placement if no improvement.
[2018-04-18] MEDS: *HR* Heparin 5,000 UNIT/ML VIAL SQ SCH ×2 (12:03→18:22)
[2018-04-18] MEDS: ARIPiprazole 10 MG TABLET PO SCH (14:24)
[2018-04-18] MEDS: Gabapentin 100 MG CAPSULE PO SCH ×2 (14:24→21:53)
[2018-04-18] MEDS: Cyanocobalamin (B-12) 1,000 MCG TABLET PO SCH (14:25)
[2018-04-18] MEDS: Insulin DETEMIR 100 UNIT/ML X5UNITS SQ SCH ×2 (14:26→21:53)
[2018-04-18] MEDS: cefTRIAXone 2,000 MG in Water for inj. (sterile) 20 ML 20 ML IVP SCH (14:27)
[2018-04-18] MEDS: Acetaminophen 325 MG TABLET PO PRN ×2 (15:45→21:56)
[2018-04-18] MEDS: amLODIPine 5 MG TABLET PO SCH (15:56)
--- NOTE | 2018-04-18 18:56 | Internal Med Progress Note ---
Date of Encounter: 04/18/18 Time of Encounter: 11:00 - Assessment and plan (1) Acute on chronic renal failure Current Visit: Yes Status: Acute Assessment and plan: Patient's creatinine worse this morning from 4.5 to yesterday to 5.56 this a.m. Patient went for hemodialysis Nephrology following and appreciate continue recommendations Qualifiers: Chronic kidney disease stage: stage 3 (moderate) Qualified Code(s): N17.9 - Acute kidney failure, unspecified; N18.3 - Chronic kidney disease, stage 3 ( moderate) (2) Osteomyelitis Current Visit: Yes Status: Acute Assessment and plan: Continue ceftriaxone 2 g IV daily per infectious disease recommendations Recommendations for 6 week course of IV antibiotic treatment as an outpatient Podiatry with plans for bedside closure of the wound on 04/18/18 and for application of wound VAC Qualifiers: Osteomyelitis type: other acute Osteomyelitis location: foot Laterality: right Qualified Code(s): M86.171 - Other acute osteomyelitis, right ankle and foot (3) Sepsis Current Visit: Yes Status: Resolved Assessment and plan: Resolved; secondary to the above Qualifiers: Sepsis type: sepsis due to unspecified organism Qualified Code(s): A41.9 - Sepsis, unspecified organism (4) HTN (hypertension) Current Visit: No Status: Chronic Assessment and plan: Stable with current medication Qualifiers: Hypertension type: essential hypertension Qualified Code(s): I10 - Essential (primary) hypertension (5) DM2 (diabetes mellitus, type 2) Current Visit: No Status: Acute Assessment and plan: Continue sliding scale insulin and basal insulin Qualifiers: Diabetes mellitus watermaster insulin use: with watermaster use Diabetes mellitus complication status: with hyperosmolarity Diabetes mellitus complication detail: without coma Qualified Code(s): E11.00 - Type 2 diabetes mellitus with hyperosmolarity without nonketotic hyperglycemic-hyperosmolar coma (NKHHC); Z79.4 - local intermodal truck driver (current) use of insulin (6) NEHEMIAH (obstructive sleep apnea) Current Visit: No Status: Resolved Assessment and plan: On CPAP, compliant in hospital (7) DVT prophylaxis Current Visit: No Status: Acute Assessment and plan: Heparin subcutaneous - Time Spent With Patient Total time spent is greater than 50% in coordination of care (as documented) at patient's floor/unit and/or counseling patient: - Subjective Interval history: Patient's renal function worse this a.m. and was taken for hemodialysis per nephrology - Constitutional Vitals: Temp Pulse Resp BP Pulse Ox 98.3 F 56 19 169/88 96 04/18/18 13:34 04/18/18 13:34 04/18/18 13:34 04/18/18 13:34 04/18/18 13:34 General appearance: Present: A&O X 3, morbidly obese, no acute distress - Respiratory Respiratory exam: Present: CTAB. Absent: accessory muscle use, rales, rhonchi, wheezes - Cardiovascular Cardiovascular exam: Present: RRR, +S1, +S2. Absent: diastolic murmur, gallop, rubs, systolic murmur Internal Medicine: Result - Labs CBC & Chem 7: 04/18/18 05:51 04/18/18 05:51 Labs: Short CBC 04/18/18 Range/Units 05:51 WBC 9.1 (4.3-11.1) K/mcL Hgb 8.1 L (12.9-16.9) g/dL Hct 25.0 L (37.5-50.1) % Plt Count 497 H (140-400) K/mcL BMP 04/18/18 05:51 Sodium 137 Potassium 4.8 Chloride 103 Carbon Dioxide 23 BUN 48 H Creatinine 5.56 H Glucose 149 H Calcium 8.5 L - ABG Interpretation ABG results: PT/INR, D-dimer PT 12.8 Seconds (9.4-12.1) H 04/08/18 11:37 - VTE Documentation of Mechanical Device: Intermittent pneumatic compression device Consult Discharge Plan - Plan Referrals: Agueda Rahman CNP [Advanced Practice Nurse] - 05/09/18 8:40 am Dolly Garcia CNP [Primary Care Provider] -
[2018-04-19] MEDS: *HR* Heparin 5,000 UNIT/ML VIAL SQ SCH ×4 (00:43→23:42)
[2018-04-19 04:29] LABS: Hemoglobin 8.2 g/dL (12.9-16.9); Mean Corpuscular HGB Conc 32.8 g/dL (31.6-35.5); Mean Corpuscular Hemoglobin 27.8 pg (28.0-33.3); Mean Corpuscular Volume 84.7 fL (83.0-100.0); Mean Platelet Volume 8.6 fL (9.4-12.4); Platelet Count 463 K/mcL (140-400); Red Blood Count 2.95 M/mcL (4.19-5.50); Red Cell Distribution Width 13.9 % (11.5-14.5)
[2018-04-19 04:55] LABS: Calcium 8.7 mg/dL (8.6-10.3); Potassium 4.1 mEq/L (3.5-5.1)
[2018-04-19] MEDS: Insulin LISPRO 300 UNITS/3 ML VIAL SQ SCH ×4 (07:59→21:23)
--- NOTE | 2018-04-19 08:39 | Nephrology Progress Note ---
Date of Encounter: 04/19/18 Time of Encounter: 08:37 - Assessment and Plan (1) YESENIA (acute kidney injury) Current Visit: Yes Status: Acute Scr 4.33 today GFR 15 both improved, expected after HD yesterday. Will watch for signs of renal recovery. Continue to avoid nephrotoxins and renal dose all medications. UOP 1260 yesterday and 350 today. Strict I/O. (2) Abscess of right foot Current Visit: Yes Status: Acute Per podiatry. (3) Diabetic foot ulcer Current Visit: Yes Status: Acute See above. Qualifiers: Diabetic foot ulcer location: heel Diabetes mellitus type: type 2 Laterality: right Non-pressure ulcer stage: unspecified non-pressure ulcer stage Qualified Code(s): E11.621 - Type 2 diabetes mellitus with foot ulcer; L97.419 - Non-pressure chronic ulcer of right heel and midfoot with unspecified severity (4) Hyponatremia syndrome Current Visit: Yes Status: Acute Resolved. Subjective Principal diagnosis: RLE swelling/bleeding Interval history: Pt seen and examined. No c/o of nausea/vomiting/diarrhea. Objective - Vital Signs Vital signs: Vital Signs Temp Pulse Resp BP Pulse Ox 04/19/18 07:05 97.5 F L 68 18 164/64 94 04/19/18 04:23 98.3 F 51 18 136/79 98 04/19/18 00:47 98.1 F 48 18 130/70 95 04/18/18 20:16 98.9 F 50 18 142/76 96 04/18/18 13:34 98.3 F 56 19 169/88 96 04/18/18 13:22 97.8 F 18 156/66 04/18/18 12:50 134/83 04/18/18 12:35 137/68 04/18/18 12:20 135/69 04/18/18 12:05 139/73 04/18/18 11:50 146/67 04/18/18 11:35 172/109 04/18/18 11:20 154/86 04/18/18 11:05 141/74 04/18/18 10:50 134/68 04/18/18 10:35 134/64 04/18/18 10:20 150/86 04/18/18 10:05 154/75 04/18/18 09:50 164/83 04/18/18 09:35 165/87 04/18/18 09:20 149/81 04/18/18 09:05 173/89 04/18/18 08:50 97.4 F L 20 186/94 Intake and Output 04/18/18 04/19/18 04/19/18 23:59 07:59 15:59 Intake Total 0 / 0 120 / 120 Output Total 160 / 160 350 / 350 Balance -160 / -160 -230 / -230 Intake: Oral 0 / 0 120 / 120 Output: Catheter 160 / 160 350 / 350 Other: Meal Dinner Percent of Meal Consumed 75% # Bowel Movements 0 Weight 187.9 kg Blood Glucose* 155 73 106 Patient Weight 04/19/18 23:59 Weight 187.9 kg - General Appearance General appearance: Present: obese EENT: Present: ATNC, hearing intact, vision intact Neck: Present: supple Respiratory: Present: clear Cardiology: Present: no edema, normal S1, normal S2 Dialysis Vascular Access: Venous Catheter (Temp line, DRSG C/D/I.) Gastrointestinal: Present: normoactive bowel sounds, no tenderness, no guarding Integumentary: Present: no rash, warm and dry Neurologic: Present: alert and oriented x3 Additional Comments: DRSG C/D/I to RLE. Psychiatric: Present: mood/affect appropriate, cooperative - Lab 04/19/18 04:00 04/19/18 04:00 Most recent lab results Calcium 8.7 mg/dL (8.6-10.3) 04/19/18 04:00 Phosphorus 5.3 mg/dL (2.7-4.5) H 04/12/18 08:56 Magnesium 1.8 mg/dL (1.6-2.6) 04/12/18 08:56 Urine Creatinine 140 mg/dL 04/11/18 14:50 Urine Sodium 35.9 mEq/L 04/11/18 14:50 Urine Total Protein 184 mg/dL (1-14) H 04/11/18 14:50 - VTE Documentation of Mechanical Device: Intermittent pneumatic compression device Consult Discharge Plan - Plan Referrals: Agueda Rahman RESOURCE ROOM SPECIAL EDUCATION TEACHER [Advanced Practice Nurse] - 05/09/18 8:40 am Dolly Garcia RESOURCE ROOM SPECIAL EDUCATION TEACHER [Primary Care Provider] -
--- NOTE | 2018-04-19 09:45 | Infectious Disease Progress No ---
Date of Encounter: 04/19/18 Time of Encounter: 09:43 - Assessment and Plan (1) Sepsis Current Visit: Yes Status: Resolved The patient had two SIRS criteria on admission. Likely secondary to right foot infection and OM. Resolved. Afebrile. WBC normalized. Blood cultures drawn 04/08/18 are negative x 2 sets. Qualifiers: Sepsis type: sepsis due to unspecified organism Qualified Code(s): A41.9 - Sepsis, unspecified organism (2) Osteomyelitis Current Visit: Yes Status: Acute Causative organism: GCS and MSSA. Location: Right foot talus and navicularis. Likely secondary to right foot DFU. X-ray of the right foot completed 04/08/18 showed bony erosion of the talus and navicularis. ESR 106, CRP >300. Podiatry consulted and following. Status post I&D of the right ankle/foot, removal of hardware, and bone biopsy. Operative note was reviewed. Purulence noted Intra-Op adjacent to the hardware. Intraoperative cultures are positive for MSSA. Pathology positive for OM of the talus bone. Wound care and activity restrictions as outlined by the podiatry team. The patient may require additional washout of the foot at some point. Will discuss plan with podiatry. Continue Rocephin 2 grams IV daily (day 9). Duration of treatment depends on the clinical picture, but likely 6 weeks of IV antibiotics. Continue to monitor renal function. Consult VAT prior to discharge for EPIV placement. Will need weekly CBC, BUN/Cr, ESR, CRP. Will need weekly IV care. Follow up with ID 05/09/18 at 0840. Qualifiers: Osteomyelitis type: other acute Osteomyelitis location: foot Laterality: right Qualified Code(s): M86.171 - Other acute osteomyelitis, right ankle and foot (3) Abscess of right foot Current Visit: Yes Status: Acute Location: Right foot. Causative organism: GCS and MSSA. Status post I & D 04/09/[address] Mercer. Antibiotics as above. (4) YESENIA (acute kidney injury) Current Visit: Yes Status: Acute YESENIA on CKD. Serum creatinine improved after HD yesterday. Urine output 2600 yesterday. Etiology unclear, but likely multifactorial: hypotension post-op, Vancomycin, dehydration Continue to trend. Nephrology consulted and following. HD initiated 04/13/18. RP UTS negative. Avoid additional nephrotoxins. Dose-adjust antibiotics as needed. (5) Diabetic foot ulcer Current Visit: Yes Status: Acute Etiology unclear. Podiatry consulted and following. Qualifiers: Diabetic foot ulcer location: heel Diabetes mellitus type: type 2 Laterality: right Non-pressure ulcer stage: unspecified non-pressure ulcer stage Qualified Code(s): E11.621 - Type 2 diabetes mellitus with foot ulcer; L97.419 - Non-pressure chronic ulcer of right heel and midfoot with unspecified severity (6) Charcot foot due to diabetes mellitus Current Visit: No Status: Acute Status post reconstruction 10/[address] Mercer. (7) HTN (hypertension) Current Visit: No Status: Chronic Qualifiers: Hypertension type: essential hypertension Qualified Code(s): I10 - Essential (primary) hypertension (8) DM2 (diabetes mellitus, type 2) Current Visit: No Status: Chronic Uncontrolled. HgbA1C 9.4%. Recommend aggressive glucose monitoring and control to promote wound healing and prevent re-infection. Management per the primary team. Qualifiers: Diabetes mellitus province archivist insulin use: with alf use Diabetes mellitus complication status: with hyperosmolarity Diabetes mellitus complication detail: without coma Qualified Code(s): E11.00 - Type 2 diabetes mellitus with hyperosmolarity without nonketotic hyperglycemic-hyperosmolar coma (NKHHC); Z79.4 - [facility] (current) use of insulin (9) NEHEMIAH (obstructive sleep apnea) Current Visit: No Status: Resolved (10) Morbid obesity with BMI of 50.0-59.9, adult Current Visit: No Status: Acute - Subjective Interval history: Patient seen and examined. No acute events noted overnight. Status post temporary dialysis catheter placement with HD initiation on 04/13/18. Status post I & D of the right ankle with removal of hardware and bone biopsy 04/09/18. He states overall he feels okay. Denies fevers, chills, or rigors. He denies chest pain, shortness of breath, or cough. Denies nausea, vomiting, diarrhea, or constipation. Denies abdominal pain or appetite changes. Denies oral thrush or skin lesions. Denies pain at surgical site. Infect Dis PN-Objective Data - Labs CBC & Chem 7: 04/19/18 04:00 04/19/18 04:00 Labs: Laboratory Results - last 24 hr 04/18/18 04/18/18 04/18/18 07:35 13:21 16:19 WBC RBC Hgb Hct MCV MCH MCHC RDW Plt Count MPV Sodium Potassium Chloride Carbon Dioxide BUN Creatinine Est GFR ( Amer) Est GFR (Non-Af Amer) BUN/Creatinine Ratio Glucose POC Glucose 118 H 104 H 160 H Calculated Osmolality Calcium 04/18/18 04/19/18 04/19/18 21:29 04:00 04:00 WBC 7.8 RBC 2.95 L Hgb 8.2 L Hct 25.0 L MCV 84.7 MCH 27.8 L MCHC 32.8 RDW 13.9 Plt Count 463 H MPV 8.6 L Sodium 137 Potassium 4.1 Chloride 101 Carbon Dioxide 28 BUN 33 H Creatinine 4.33 H Est GFR ( Amer) 18 L Est GFR (Non-Af Amer) 15 L BUN/Creatinine Ratio 8 Glucose 97 POC Glucose 155 H Calculated Osmolality 291 Calcium 8.7 Cultures: Cultures 04/09/18 23:09 Anaerobic Culture - Final Right Foot No anaerobes were recovered. 04/08/18 14:48 Blood Culture - Final Peripheral Venipuncture No growth. 04/09/18 23:09 Wound Culture - Final Right Foot Staphylococcus aureus Serology 04/17/18 04/13/18 04/11/18 Range/Units 04:45 09:42 14:50 Urine Color (Yellow) Urine Clarity (Clear) Urine pH (5.0-8.0) pH Units Ur Specific [place] (1.010-1.025) Urine Protein (Neg-Trace) mg/dL Urine Glucose (UA) (Normal) mg/dL Urine Ketones (Negative) mg/dL Urine Blood (Negative) Urine Nitrite (Negative) Urine Bilirubin (Negative) Urine Urobilinogen (Normal) mg/dL Ur Leukocyte Esterase (Negative) Urine Microscopic RBC (0-3) per hpf Urine Microscopic WBC (0-3) per hpf Ur Eosinophil Smear 0 (None Seen) % Ur Squamous Epith Cells (None-Few) per lpf Amorphous Sediment (Few) Urine Bacteria (None-Few) per hpf Hyaline Casts (None-Few) per lpf Urine Yeast Ur Culture Indicated? (NO) Urine Creatinine 140 mg/dL Protein/Creatinin Ratio 1.31 H (0.00-0.20) mg/mg Urine Sodium 35.9 mEq/L Urine Total Protein 184 H (1-14) mg/dL Hep Bs Antigen Nonreactive (Nonreactive) Hep Bs Antibody 0.95 mIU/mL 04/11/18 Range/Units 14:50 Urine Color Yellow (Yellow) Urine Clarity Turbid A (Clear) Urine pH 5.5 (5.0-8.0) pH Units Ur Specific [place] 1.020 (1.010-1.025) Urine Protein 100 H (Neg-Trace) mg/dL Urine Glucose (UA) 100 H (Normal) mg/dL Urine Ketones Negative (Negative) mg/dL Urine Blood Large H (Negative) Urine Nitrite Negative (Negative) Urine Bilirubin Negative (Negative) Urine Urobilinogen Normal (Normal) mg/dL Ur Leukocyte Esterase Negative (Negative) Urine Microscopic RBC 5-15 H (0-3) per hpf Urine Microscopic WBC 30-50 H (0-3) per hpf Ur Eosinophil Smear (None Seen) % Ur Squamous Epith Cells Many H (None-Few) per lpf Amorphous Sediment Moderate H (Few) Urine Bacteria None Seen (None-Few) per hpf Hyaline Casts None Seen (None-Few) per lpf Urine Yeast Test Not Performed Ur Culture Indicated? NO (NO) Urine Creatinine mg/dL Protein/Creatinin Ratio (0.00-0.20) mg/mg Urine Sodium mEq/L Urine Total Protein (1-14) mg/dL Hep Bs Antigen (Nonreactive) Hep Bs Antibody mIU/mL Exam - Constitutional Vitals: Temp Pulse Resp BP Pulse Ox 97.5 F L 68 18 164/64 94 04/19/18 07:05 04/19/18 07:05 04/19/18 07:05 04/19/18 07:05 04/19/18 07:05 General appearance: cooperative, morbidly obese, no acute distress - Head Head exam: Present: atraumatic, normal inspection, normocephalic - Eye Eye exam: Present: EOMI, normal appearance, PERRL Pupils: Present: normal accommodation - ENT ENT exam: Present: mucous membranes moist - Neck Neck exam: Present: normal inspection - Respiratory Respiratory exam: Present: CTAB. Absent: rales, respiratory distress, rhonchi, wheezes - Cardiovascular Cardiovascular exam: Present: RRR, +S1, +S2 - GI/Abdominal GI/Abdominal exam: Present: distended (obese), normal bowel sounds, soft. Absent: tenderness - Extremities Exam Extremities exam: Absent: joint swelling, pedal edema, tenderness Additional comments: Right foot dressing and splint C/D/I. - Neurological Exam Neurological exam: Present: alert, oriented X3, no focal deficits - Psychiatric Psychiatric exam: Present: normal affect, normal mood - Skin Skin exam: Present: dry, intact, normal color, warm - VTE Documentation of Mechanical Device: Intermittent pneumatic compression device Consult Discharge Plan - Plan Referrals: Agueda Rahman CNP [Advanced Practice Nurse] - 05/09/18 8:40 am Dolly Garcia CNP [Primary Care Provider] - - Attending Attestation I examined this patient and my medical decision-making was reviewed with the Resident Physician. I agree with the documented findings, disposition and treatment plan as described except to the extent set forth below.
[2018-04-19] MEDS: amLODIPine 5 MG TABLET PO SCH (09:56)
[2018-04-19] MEDS: Gabapentin 100 MG CAPSULE PO SCH ×2 (09:57→20:16)
[2018-04-19] MEDS: Cyanocobalamin (B-12) 1,000 MCG TABLET PO SCH (09:57)
[2018-04-19] MEDS: ARIPiprazole 10 MG TABLET PO SCH (09:57)
[2018-04-19] MEDS: cefTRIAXone 2,000 MG in Water for inj. (sterile) 20 ML 20 ML IVP SCH (09:58)
[2018-04-19] MEDS: Insulin DETEMIR 100 UNIT/ML X5UNITS SQ SCH ×2 (10:04→20:53)
[2018-04-19] MEDS: traMADol 50 MG TABLET PO PRN (18:26)
--- NOTE | 2018-04-19 18:40 | Internal Med Progress Note ---
Date of Encounter: 04/19/18 Time of Encounter: 11:00 - Assessment and plan (1) Acute on chronic renal failure Current Visit: Yes Status: Acute Assessment and plan: Patient's creatinine improved this morning from 4.33 from yesterday to 5.56 status post hemodialysis Nephrology following and appreciate continue recommendations Qualifiers: Chronic kidney disease stage: stage 3 (moderate) Qualified Code(s): N17.9 - Acute kidney failure, unspecified; N18.3 - Chronic kidney disease, stage 3 ( moderate) (2) Osteomyelitis Current Visit: Yes Status: Acute Assessment and plan: Continue ceftriaxone 2 g IV daily per infectious disease recommendations Recommendations for 6 week course of IV antibiotic treatment as an outpatient Podiatry with plans for bedside closure of the wound on 04/18/18 and for application of wound VAC Qualifiers: Osteomyelitis type: other acute Osteomyelitis location: foot Laterality: right Qualified Code(s): M86.171 - Other acute osteomyelitis, right ankle and foot (3) Sepsis Current Visit: Yes Status: Resolved Assessment and plan: Resolved; secondary to the above Qualifiers: Sepsis type: sepsis due to unspecified organism Qualified Code(s): A41.9 - Sepsis, unspecified organism (4) HTN (hypertension) Current Visit: No Status: Chronic Assessment and plan: Stable with current medication Qualifiers: Hypertension type: essential hypertension Qualified Code(s): I10 - Essential (primary) hypertension (5) DM2 (diabetes mellitus, type 2) Current Visit: No Status: Chronic Assessment and plan: Continue sliding scale insulin and basal insulin Qualifiers: Diabetes mellitus roll cutter insulin use: with half-way use Diabetes mellitus complication status: with hyperosmolarity Diabetes mellitus complication detail: without coma Qualified Code(s): E11.00 - Type 2 diabetes mellitus with hyperosmolarity without nonketotic hyperglycemic-hyperosmolar coma (NKHHC); 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 (6) NEHEMIAH (obstructive sleep apnea) Current Visit: No Status: Resolved Assessment and plan: On CPAP, compliant in hospital - Time Spent With Patient Total time spent is greater than 50% in coordination of care (as documented) at patient's floor/unit and/or counseling patient: - Subjective Interval history: Patient's renal function still elevated but has improved this morning after hemodialysis yesterday - Constitutional Vitals: Temp Pulse Resp BP Pulse Ox 97.6 F 82 18 166/82 94 04/19/18 14:13 04/19/18 14:13 04/19/18 14:13 04/19/18 14:13 04/19/18 14:13 General appearance: Present: A&O X 3, morbidly obese, no acute distress - Respiratory Respiratory exam: Present: CTAB. Absent: accessory muscle use, rales, rhonchi, wheezes - Cardiovascular Cardiovascular exam: Present: RRR, +S1, +S2. Absent: diastolic murmur, gallop, rubs, systolic murmur Internal Medicine: Result - Labs CBC & Chem 7: 04/19/18 04:00 04/19/18 04:00 Labs: Short CBC 04/19/18 Range/Units 04:00 WBC 7.8 (4.3-11.1) K/mcL Hgb 8.2 L (12.9-16.9) g/dL Hct 25.0 L (37.5-50.1) % Plt Count 463 H (140-400) K/mcL BMP 04/19/18 04:00 Sodium 137 Potassium 4.1 Chloride 101 Carbon Dioxide 28 BUN 33 H Creatinine 4.33 H Glucose 97 Calcium 8.7 - ABG Interpretation ABG results: PT/INR, D-dimer PT 12.8 Seconds (9.4-12.1) H 04/08/18 11:37 - VTE Documentation of Mechanical Device: Intermittent pneumatic compression device Consult Discharge Plan - Plan Referrals: Agueda Rahman CNP [Advanced Practice Nurse] - 05/09/18 8:40 am Dolly Garcia CNP [Primary Care Provider] -
--- NOTE | 2018-04-19 19:43 | Podiatry Progress Note ---
Date of Encounter: 04/19/18 Time of Encounter: 05:00 - Assessment and Plan (1) Abscess of right foot Current Visit: Yes Status: Acute Chronic charcot s/p surgery in 2017. Developed abscess and infection prior to admission. s/p I&D and removal of hardware. discussed with patient surgical procedure and course of recovery. discussed he is still high risk for limb loss. no purulence expressed from the wound sites. he will need follow up with me in the wound care center after discharge. he will require wound vac changes 3x/wk. IV abx per infectious disease. right lateral ankle was excisionally debrided removing fibrotic tissue on the plantar lateral aspect of the right foot/ankle through subcutaenous tissue until there was healthy granular tissue. lateral ankle incision deemed adequate for closure as no purulence has been able to be expressed, there is no cellulitis and skin margins are viable.skin cleansed with betadine. ethyl chloride used to anesthetize the skin on the lateral ankle. wound was flushed with saline. 0- prolene was used to close the lateral ankle incision lateral without incident. wound vac was applied to the remainder of the plantar lateral right foot/ankle wound using adaptic and black foam set at 125 mm Hg. (2) Charcot foot due to diabetes mellitus Current Visit: No Status: Acute see above. non-weight bearing right lower extremity. Subjective Principal diagnosis: RLE swelling/bleeding Interval history: denies feeling like he experienced f/c/n/v/sob/cp. had dialysis. says that he has made urine. Objective - Vital Signs Vital Signs: Vital Signs Temp Pulse Resp BP Pulse Ox 04/19/18 14:13 97.6 F 82 18 166/82 94 04/19/18 10:47 97.7 F 86 18 146/76 98 04/19/18 07:05 97.5 F L 68 18 164/64 94 04/19/18 04:23 98.3 F 51 18 136/79 98 04/19/18 00:47 98.1 F 48 18 130/70 95 04/18/18 20:16 98.9 F 50 18 142/76 96 Intake and Output 04/19/18 04/19/18 04/19/18 07:59 15:59 23:59 Intake Total 120 / 120 380 / 380 Output Total 350 / 350 175 / 175 Balance -230 / -230 205 / 205 Intake: IV Fluids Rocephin 2,000 MG In Water for inj. (sterile) 20 ML @ 600 mls/ hr IVP DAILY [facility] Rx#:[id number] Oral 120 / 120 360 / 360 Output: Catheter 350 / 350 175 / 175 Other: Meal Breakfast Percent of Meal Consumed 100% Weight 187.9 kg Blood Glucose* 73 169 Patient Weight 04/19/18 23:59 Weight 187.9 kg - Exam Exam: well developed and nourished male in no acute distress right foot/ankle is warm to touch. moderate edema of the right foot/ankle. no erythema. no fluctuance.no purulence expressed. wound has been packed and packing removed. wound from I&D measures apprximately 12cm on the lateral right ankle. plantar foot/ankle wound measures [id number]. wound base is 90 granular and 10% fibrotic. absent protective sensation. - Lab Result Diagrams: 04/19/18 04:00 04/19/18 04:00 Labs: Abnormal lab results RBC 2.95 M/mcL (4.19-5.50) L 04/19/18 04:00 Hgb 8.2 g/dL (12.9-16.9) L 04/19/18 04:00 Hct 25.0 % (37.5-50.1) L 04/19/18 04:00 MCH 27.8 pg (28.0-33.3) L 04/19/18 04:00 Plt Count 463 K/mcL (140-400) H 04/19/18 04:00 MPV 8.6 fL (9.4-12.4) L 04/19/18 04:00 Immature Gran % 6.9 % (0-4) H 04/13/18 15:02 Metamyelocytes % 2.0 % (0) H 04/11/18 08:13 Nucleated RBCs/100 WBC 0.2 /100 WBC (0) H 04/16/18 06:26 Platelet Estimate Slight increase (Normal) H 04/16/18 06:26 ESR 106 mm/hr (0-10) H 04/08/18 18:00 PT 12.8 Seconds (9.4-12.1) H 04/08/18 11:37 BUN 33 mg/dL (6-20) H 04/19/18 04:00 Creatinine 4.33 mg/dL (0.70-1.30) H 04/19/18 04:00 Est GFR ( Amer) 18 (> 60) L 04/19/18 04:00 Est GFR (Non-Af Amer) 15 (> 60) L 04/19/18 04:00 POC Glucose 169 mg/dL (70-99) H 04/19/18 15:33 Hemoglobin A1c 9.4 % (-5.6) H 04/09/18 06:56 Phosphorus 5.3 mg/dL (2.7-4.5) H 04/12/18 08:56 Creatine Kinase 277 Units/L (30-223) H 04/13/18 15:02 C-Reactive Protein > 300 mg/L (Less than 10) H 04/08/18 18:00 Urine Clarity Turbid (Clear) A 04/11/18 14:50 Urine Protein 100 mg/dL (Neg-Trace) H 04/11/18 14:50 Urine Glucose (UA) 100 mg/dL (Normal) H 04/11/18 14:50 Urine Blood Large (Negative) H 04/11/18 14:50 Urine Microscopic RBC 5-15 per hpf (0-3) H 04/11/18 14:50 Urine Microscopic WBC 30-50 per hpf (0-3) H 04/11/18 14:50 Ur Squamous Epith Cells Many per lpf (None-Few) H 04/11/18 14:50 Amorphous Sediment Moderate (Few) H 04/11/18 14:50 Protein/Creatinin Ratio 1.31 mg/mg (0.00-0.20) H 04/11/18 14:50 Urine Total Protein 184 mg/dL (1-14) H 04/11/18 14:50 Vancomycin Trough 30 mcg/mL (5-10) H 04/10/18 12:44 - VTE Documentation of Mechanical Device: Intermittent pneumatic compression device Consult Discharge Plan - Plan Referrals: Agueda Rahman OIL LEASE OPERATOR [Advanced Practice Nurse] - 05/09/18 8:40 am Dolly Garcia CNP [Primary Care Provider] -
[2018-04-20 06:41] LABS: Hematocrit 26.2 % (37.5-50.1); Hemoglobin 8.3 g/dL (12.9-16.9); Mean Corpuscular HGB Conc 31.7 g/dL (31.6-35.5); Mean Corpuscular Hemoglobin 27.4 pg (28.0-33.3); Mean Corpuscular Volume 86.5 fL (83.0-100.0); Mean Platelet Volume 8.6 fL (9.4-12.4); Platelet Count 522 K/mcL (140-400); Red Blood Count 3.03 M/mcL (4.19-5.50); Red Cell Distribution Width 14.2 % (11.5-14.5)
[2018-04-20 07:08] LABS: Calcium 8.7 mg/dL (8.6-10.3); Potassium 4.7 mEq/L (3.5-5.1)
[2018-04-20] MEDS: Insulin LISPRO 300 UNITS/3 ML VIAL SQ SCH ×4 (08:27→21:15)
[2018-04-20] MEDS: Gabapentin 100 MG CAPSULE PO SCH ×2 (08:55→21:16)
[2018-04-20] MEDS: amLODIPine 5 MG TABLET PO SCH (08:55)
[2018-04-20] MEDS: ARIPiprazole 10 MG TABLET PO SCH (08:56)
[2018-04-20] MEDS: cefTRIAXone 2,000 MG in Water for inj. (sterile) 20 ML 20 ML IVP SCH (08:56)
[2018-04-20] MEDS: Cyanocobalamin (B-12) 1,000 MCG TABLET PO SCH (08:56)
[2018-04-20] MEDS: *HR* Heparin 5,000 UNIT/ML VIAL SQ SCH ×3 (08:56→23:51)
[2018-04-20] MEDS: Insulin DETEMIR 100 UNIT/ML X5UNITS SQ SCH ×2 (09:42→21:15)
--- NOTE | 2018-04-20 10:35 | Nephrology Progress Note ---
Date of Encounter: 04/20/18 Time of Encounter: 10:00 - Assessment and Plan (1) YESENIA (acute kidney injury) Current Visit: Yes Status: Acute His labs today suggest that he has not regained renal function and thus I recommend HD today for clearance and UF. He has required intermittent HD. If by Sunday his renal function starts to decline again, then I would recommend a Permacath. HD today will provide clearance along with the expectation that his SCr tomorrow will appear slight better (but that may just be from dialysis rather than [place] renal function). Continue to follow a renal protective strategy: avoid nephrotoxins to help encourage renal recovery. I've discussed his dialysis orders with the director transition. Will be available tomorrow if needed. Thank you. (2) Abscess of right foot Current Visit: Yes Status: Acute As per primary (3) Anemia Current Visit: No Status: Acute Goal Hgb is 10-11 in the setting of renal disease. May need EPO and/or IV iron at some point. Qualifiers: Anemia type: unspecified type Qualified Code(s): D64.9 - Anemia, unspecified (4) DM2 (diabetes mellitus, type 2) Current Visit: No Status: Chronic As per primary. His DM and Obesity are renal risk factors. Qualifiers: Diabetes mellitus exterminator helper insulin use: with exterminator helper use Diabetes mellitus complication status: with hyperosmolarity Diabetes mellitus complication detail: without coma Qualified Code(s): E11.00 - Type 2 diabetes mellitus with hyperosmolarity without nonketotic hyperglycemic-hyperosmolar coma (NKHHC); Z79.4 - alf (current) use of insulin (5) HTN (hypertension) Current Visit: No Status: Chronic Holding / avoiding an SOHAIL or ARB d/t the YESENIA. Qualifiers: Hypertension type: essential hypertension Qualified Code(s): I10 - Essential (primary) hypertension Subjective Principal diagnosis: RLE swelling/bleeding Interval history: Pt was s/e and he affirmed having inc'd fatigue and feelings of decreased UOP. He did not affirm appetite changes such as N/V/D or diminished feelings of hunger. He uses a CPAP at night, he said. Objective - Vital Signs Vital signs: Vital Signs Temp Pulse Resp BP Pulse Ox 04/20/18 07:42 97.7 F 56 18 152/78 94 04/20/18 03:19 98.4 F 54 18 152/88 95 04/19/18 20:52 98.4 F 59 17 139/76 90 04/19/18 20:21 94 04/19/18 14:13 97.6 F 82 18 166/82 94 04/19/18 10:47 97.7 F 86 18 146/76 98 Intake and Output 04/19/18 04/20/18 04/20/18 23:59 07:59 15:59 Intake Total 0 / 0 100 / 100 240 / 240 Output Total 300 / 300 600 / 600 Balance -300 / -300 -500 / -500 240 / 240 Intake: Oral 0 / 0 100 / 100 240 / 240 Output: Catheter 300 / 300 600 / 600 Other: Meal Breakfast Percent of Meal Consumed 100% Weight 187.8 kg Blood Glucose* 163 103 Patient Weight 04/20/18 23:59 Weight 187.8 kg - General Appearance General appearance: Present: well-developed, well-nourished, appears started age , obese EENT: Present: ATNC, PERRL, mucous membranes moist Neck: Present: supple Respiratory: Present: clear Cardiology: Present: edema, normal S1, normal S2 Dialysis Vascular Access: Venous Catheter (RIJ Temporary HD catheter was C/D/I) Gastrointestinal: Present: no tenderness, no guarding, obese Additional Comments: Wound dressing was noted Musculoskeletal: Present: no cyanosis, no clubbing Psychiatric: Present: mood/affect appropriate, cooperative - Lab 04/20/18 06:21 04/20/18 06:21 Most recent lab results Calcium 8.7 mg/dL (8.6-10.3) 04/20/18 06:21 Phosphorus 5.3 mg/dL (2.7-4.5) H 04/12/18 08:56 Magnesium 1.8 mg/dL (1.6-2.6) 04/12/18 08:56 Urine Creatinine 140 mg/dL 04/11/18 14:50 Urine Sodium 35.9 mEq/L 04/11/18 14:50 Urine Total Protein 184 mg/dL (1-14) H 04/11/18 14:50 - VTE Documentation of Mechanical Device: Intermittent pneumatic compression device Consult Discharge Plan - Plan Referrals: Agueda Rahman LEARNING DISABILITIES RESOURCE TEACHER [Advanced Practice Nurse] - 05/09/18 8:40 am Dolly Garcia LEARNING DISABILITIES RESOURCE TEACHER [Primary Care Provider] -
[2018-04-20] MEDS ORDERED: 0.9 % Sodium Chloride 250 ML IVC PRN (10:40)
[2018-04-20] MEDS: Acetaminophen 325 MG TABLET PO PRN (15:46)
--- NOTE | 2018-04-20 18:02 | Internal Med Progress Note ---
Date of Encounter: 04/20/18 Time of Encounter: 11:00 - Assessment and plan (1) Acute on chronic renal failure Current Visit: Yes Status: Acute Assessment and plan: Patient's creatinine improved this morning from 5.05 from yesterday to 4.33 Nephrology following and appreciate continue recommendations Qualifiers: Chronic kidney disease stage: stage 3 (moderate) Qualified Code(s): N17.9 - Acute kidney failure, unspecified; N18.3 - Chronic kidney disease, stage 3 ( moderate) (2) Osteomyelitis Current Visit: Yes Status: Acute Assessment and plan: Continue ceftriaxone 2 g IV daily per infectious disease recommendations Recommendations for 6 week course of IV antibiotic treatment as an outpatient Podiatry with plans for bedside closure of the wound on 04/18/18 and for application of wound VAC Qualifiers: Osteomyelitis type: other acute Osteomyelitis location: foot Laterality: right Qualified Code(s): M86.171 - Other acute osteomyelitis, right ankle and foot (3) Sepsis Current Visit: Yes Status: Resolved Assessment and plan: Resolved; secondary to the above Qualifiers: Sepsis type: sepsis due to unspecified organism Qualified Code(s): A41.9 - Sepsis, unspecified organism (4) HTN (hypertension) Current Visit: No Status: Chronic Assessment and plan: Stable with current medication Qualifiers: Hypertension type: essential hypertension Qualified Code(s): I10 - Essential (primary) hypertension (5) DM2 (diabetes mellitus, type 2) Current Visit: No Status: Chronic Assessment and plan: Continue sliding scale insulin and basal insulin Qualifiers: Diabetes mellitus jail insulin use: with jail use Diabetes mellitus complication status: with hyperosmolarity Diabetes mellitus complication detail: without coma Qualified Code(s): E11.00 - Type 2 diabetes mellitus with hyperosmolarity without nonketotic hyperglycemic-hyperosmolar coma ([facility]); Z79.4 - [facility] (current) use of insulin (6) NEHEMIAH (obstructive sleep apnea) Current Visit: No Status: Resolved Assessment and plan: On CPAP, compliant in hospital - Time Spent With Patient Total time spent is greater than 50% in coordination of care (as documented) at patient's floor/unit and/or counseling patient: - Subjective Interval history: Patient's renal function still elevated; plans for hemodialysis today - Constitutional Vitals: Temp Pulse Resp BP Pulse Ox 97.6 F 52 20 177/84 99 04/20/18 17:40 04/20/18 12:15 04/20/18 17:40 04/20/18 17:40 04/20/18 12:15 General appearance: Present: A&O X 3, morbidly obese, no acute distress - Respiratory Respiratory exam: Present: CTAB. Absent: accessory muscle use, rales, rhonchi, wheezes - Cardiovascular Cardiovascular exam: Present: RRR, +S1, +S2. Absent: diastolic murmur, gallop, rubs, systolic murmur Internal Medicine: Result - Labs CBC & Chem 7: 04/20/18 06:21 04/20/18 06:21 Labs: Short CBC 04/20/18 Range/Units 06:21 WBC 7.8 (4.3-11.1) K/mcL Hgb 8.3 L (12.9-16.9) g/dL Hct 26.2 L (37.5-50.1) % Plt Count 522 H (140-400) K/mcL BMP 04/20/18 06:21 Sodium 137 Potassium 4.7 Chloride 101 Carbon Dioxide 26 BUN 44 H Creatinine 5.05 H Glucose 111 H Calcium 8.7 - ABG Interpretation ABG results: PT/INR, D-dimer PT 12.8 Seconds (9.4-12.1) H 04/08/18 11:37 - VTE Documentation of Mechanical Device: Intermittent pneumatic compression device Consult Discharge Plan - Plan Referrals: Agueda Rahman CNP [Advanced Practice Nurse] - 05/09/18 8:40 am Dolly Garcia CNP [Primary Care Provider] -
[2018-04-20] MEDS: traMADol 50 MG TABLET PO PRN (21:18)
[2018-04-21] MEDS ORDERED: tiZANidine 4 MG TABLET PO ONE (00:20)
[2018-04-21 07:29] LABS: Basophils # 0.1 K/mcL (0.0-0.2); Basophils % 0.7 %; Eosinophils # 0.2 K/mcL (0.0-0.6); Eosinophils % 2.4 %; Hematocrit 28.5 % (37.5-50.1); Hemoglobin 9.1 g/dL (12.9-16.9); Immature Granulocytes % 1.5 % (0-4); Lymphocytes # 1.4 K/mcL (0.6-4.6); Lymphocytes % 19.4 %; Mean Corpuscular HGB Conc 31.9 g/dL (31.6-35.5); Mean Corpuscular Hemoglobin 27.2 pg (28.0-33.3); Mean Corpuscular Volume 85.1 fL (83.0-100.0); Mean Platelet Volume 8.8 fL (9.4-12.4); Monocytes # 0.5 K/mcL (0.0-1.3); Monocytes % 7.2 %; Neutrophils # 4.9 K/mcL (1.6-8.9); Nucleated Red Blood Cells 0.3 /100 WBC (0); Platelet Count 453 K/mcL (140-400); Red Blood Count 3.35 M/mcL (4.19-5.50); Red Cell Distribution Width 13.8 % (11.5-14.5); Segmented Neutrophils % 68.8 %
[2018-04-21 07:36] LABS: Calcium 8.8 mg/dL (8.6-10.3)
[2018-04-21] MEDS: Insulin LISPRO 300 UNITS/3 ML VIAL SQ SCH ×4 (08:23→20:37)
[2018-04-21] MEDS: Insulin DETEMIR 100 UNIT/ML X5UNITS SQ SCH ×2 (08:28→20:37)
[2018-04-21] MEDS: cefTRIAXone 2,000 MG in Water for inj. (sterile) 20 ML 20 ML IVP SCH (08:46)
[2018-04-21] MEDS: *HR* Heparin 5,000 UNIT/ML VIAL SQ SCH ×3 (08:47→23:38)
[2018-04-21] MEDS: ARIPiprazole 10 MG TABLET PO SCH (08:47)
[2018-04-21] MEDS: Cyanocobalamin (B-12) 1,000 MCG TABLET PO SCH (08:47)
[2018-04-21] MEDS: amLODIPine 5 MG TABLET PO SCH (08:47)
[2018-04-21] MEDS: Gabapentin 100 MG CAPSULE PO SCH ×2 (08:47→20:36)
--- NOTE | 2018-04-21 17:18 | Internal Med Progress Note ---
Date of Encounter: 04/21/18 Time of Encounter: 11:00 - Assessment and plan (1) Acute on chronic renal failure Current Visit: Yes Status: Acute Assessment and plan: Patient's creatinine improved this morning from 5.05 yesterday to 3.93 status post hemodialysis Nephrology following and appreciate continue recommendations Qualifiers: Chronic kidney disease stage: stage 3 (moderate) Qualified Code(s): N17.9 - Acute kidney failure, unspecified; N18.3 - Chronic kidney disease, stage 3 ( moderate) (2) Osteomyelitis Current Visit: Yes Status: Acute Assessment and plan: Continue ceftriaxone 2 g IV daily per infectious disease recommendations Recommendations for 6 week course of IV antibiotic treatment as an outpatient Podiatry with plans for bedside closure of the wound on 04/18/18 and for application of wound VAC Physical therapy will be consulted for recommendations for SNF placement Qualifiers: Osteomyelitis type: other acute Osteomyelitis location: foot Laterality: right Qualified Code(s): M86.171 - Other acute osteomyelitis, right ankle and foot (3) Sepsis Current Visit: Yes Status: Resolved Assessment and plan: Resolved; secondary to the above Qualifiers: Sepsis type: sepsis due to unspecified organism Qualified Code(s): A41.9 - Sepsis, unspecified organism (4) HTN (hypertension) Current Visit: No Status: Chronic Assessment and plan: Stable with current medication Qualifiers: Hypertension type: essential hypertension Qualified Code(s): I10 - Essential (primary) hypertension (5) DM2 (diabetes mellitus, type 2) Current Visit: No Status: Chronic Assessment and plan: Continue sliding scale insulin and basal insulin Qualifiers: Diabetes mellitus custodial insulin use: with custodial use Diabetes mellitus complication status: with hyperosmolarity Diabetes mellitus complication detail: without coma Qualified Code(s): E11.00 - Type 2 diabetes mellitus with hyperosmolarity without nonketotic hyperglycemic-hyperosmolar coma ([facility]); Z79.4 - [facility] (current) use of insulin (6) NEHEMIAH (obstructive sleep apnea) Current Visit: No Status: Resolved Assessment and plan: On CPAP, compliant in hospital (7) DVT prophylaxis Current Visit: No Status: Acute Assessment and plan: Heparin subcutaneous - Time Spent With Patient Total time spent is greater than 50% in coordination of care (as documented) at patient's floor/unit and/or counseling patient: - Subjective Interval history: Patient with acute renal failure managed by nephrology with intermittent hemodialysis Patient also with right foot osteomyelitis on IV antibiotics; physical therapy consulted for potential SNF placement - Constitutional Vitals: Temp Pulse Resp BP Pulse Ox 98.1 F 61 17 146/75 93 04/21/18 15:23 04/21/18 15:23 04/21/18 15:23 04/21/18 15:23 04/21/18 15:23 General appearance: Present: A&O X 3, morbidly obese, no acute distress - Respiratory Respiratory exam: Present: CTAB. Absent: accessory muscle use, rales, rhonchi, wheezes - Cardiovascular Cardiovascular exam: Present: RRR, +S1, +S2. Absent: diastolic murmur, gallop, rubs, systolic murmur Internal Medicine: Result - Labs CBC & Chem 7: 04/21/18 07:09 04/21/18 07:09 Labs: Short CBC 04/21/18 Range/Units 07:09 WBC 7.2 (4.3-11.1) K/mcL Hgb 9.1 L (12.9-16.9) g/dL Hct 28.5 L (37.5-50.1) % Plt Count 453 H (140-400) K/mcL Neutrophils # 4.9 (1.6-8.9) K/mcL BMP 04/21/18 07:09 Sodium 137 Potassium 5.0 Chloride 102 Carbon Dioxide 26 BUN 32 H Creatinine 3.93 H Glucose 148 H Calcium 8.8 - ABG Interpretation ABG results: PT/INR, D-dimer PT 12.8 Seconds (9.4-12.1) H 04/08/18 11:37 - VTE Documentation of Mechanical Device: Intermittent pneumatic compression device Consult Discharge Plan - Plan Referrals: Agueda Rahman CNP [Advanced Practice Nurse] - 05/09/18 8:40 am Dolly Garcia CNP [Primary Care Provider] -
[2018-04-21] MEDS: traMADol 50 MG TABLET PO PRN (23:38)
[2018-04-22] MEDS ORDERED: tiZANidine 4 MG TABLET PO ONE (00:51)
[2018-04-22 05:27] LABS: Basophils # 0.1 K/mcL (0.0-0.2); Basophils % 0.7 %; Eosinophils # 0.2 K/mcL (0.0-0.6); Eosinophils % 2.5 %; Hematocrit 25.8 % (37.5-50.1); Hemoglobin 8.3 g/dL (12.9-16.9); Immature Granulocytes % 0.7 % (0-4); Lymphocytes # 1.4 K/mcL (0.6-4.6); Lymphocytes % 20.6 %; Mean Corpuscular HGB Conc 32.2 g/dL (31.6-35.5); Mean Corpuscular Hemoglobin 27.4 pg (28.0-33.3); Mean Corpuscular Volume 85.1 fL (83.0-100.0); Mean Platelet Volume 8.8 fL (9.4-12.4); Monocytes # 0.5 K/mcL (0.0-1.3); Monocytes % 7.3 %; Neutrophils # 4.7 K/mcL (1.6-8.9); Platelet Count 421 K/mcL (140-400); Red Blood Count 3.03 M/mcL (4.19-5.50); Segmented Neutrophils % 68.2 %
[2018-04-22 05:50] LABS: Calcium 8.9 mg/dL (8.6-10.3); Potassium 4.5 mEq/L (3.5-5.1)
[2018-04-22] MEDS ORDERED: 0.9 % Sodium Chloride 250 ML IVC PRN (06:34)
[2018-04-22] MEDS: amLODIPine 5 MG TABLET PO SCH (07:48)
[2018-04-22] MEDS: Cyanocobalamin (B-12) 1,000 MCG TABLET PO SCH (07:48)
[2018-04-22] MEDS: Insulin DETEMIR 100 UNIT/ML X5UNITS SQ SCH ×2 (07:48→21:30)
[2018-04-22] MEDS: ARIPiprazole 10 MG TABLET PO SCH (07:48)
[2018-04-22] MEDS: *HR* Heparin 5,000 UNIT/ML VIAL SQ SCH ×2 (07:48→17:33)
[2018-04-22] MEDS: Gabapentin 100 MG CAPSULE PO SCH ×2 (07:48→21:29)
[2018-04-22] MEDS: cefTRIAXone 2,000 MG in Water for inj. (sterile) 20 ML 20 ML IVP SCH (07:49)
[2018-04-22] MEDS: Insulin LISPRO 300 UNITS/3 ML VIAL SQ SCH ×4 (07:49→21:27)
[2018-04-22] MEDS ORDERED: 0.9 % Sodium Chloride 2,000 ML ONE (08:01)
--- NOTE | 2018-04-22 09:04 | Infectious Disease Progress No ---
Date of Encounter: 04/22/18 Time of Encounter: 09:02 - Assessment and Plan (1) Sepsis Current Visit: Yes Status: Resolved The patient had two SIRS criteria on admission. Likely secondary to right foot infection and OM. Resolved. Afebrile. WBC normalized. Blood cultures drawn 04/08/18 are negative x 2 sets. Qualifiers: Sepsis type: sepsis due to unspecified organism Qualified Code(s): A41.9 - Sepsis, unspecified organism (2) Osteomyelitis Current Visit: Yes Status: Acute Causative organism: GCS and MSSA. Location: Right foot talus and navicularis. Likely secondary to right foot DFU. X-ray of the right foot completed 04/08/18 showed bony erosion of the talus and navicularis. ESR 106, CRP >300. Podiatry consulted and following. Status post I&D of the right ankle/foot, removal of hardware, and bone biopsy. Operative note was reviewed. Purulence noted Intra-Op adjacent to the hardware. Intraoperative cultures are positive for MSSA. Pathology positive for OM of the talus bone. Status post partial closure with wound VAC placement at the bedside on Sunday by Dr. Mercer. Wound care and activity restrictions as outlined by the podiatry team. Continue Rocephin 2 grams IV daily (day 12). Duration of treatment depends on the clinical picture, but likely 6 weeks of IV antibiotics. Continue to monitor renal function. Will need weekly CBC, BUN/Cr, ESR, CRP. Will need weekly IV care. Follow up with ID 05/09/18 at 0840. Qualifiers: Osteomyelitis type: other acute Osteomyelitis location: foot Laterality: right Qualified Code(s): M86.171 - Other acute osteomyelitis, right ankle and foot (3) Abscess of right foot Current Visit: Yes Status: Acute Location: Right foot. Causative organism: GCS and MSSA. Status post I & D 04/09/[address] Mercer. Antibiotics as above. (4) YESENIA (acute kidney injury) Current Visit: Yes Status: Acute YESENIA on CKD. Serum creatinine improved after HD yesterday. Urine output improved. Etiology unclear, but likely multifactorial: hypotension post-op, Vancomycin, dehydration Continue to trend. Nephrology consulted and following. HD initiated 04/13/18. RP UTS negative. Avoid additional nephrotoxins. Dose-adjust antibiotics as needed. (5) Diabetic foot ulcer Current Visit: Yes Status: Acute Etiology unclear. Podiatry consulted and following. Qualifiers: Diabetic foot ulcer location: heel Diabetes mellitus type: type 2 Laterality: right Non-pressure ulcer stage: unspecified non-pressure ulcer stage Qualified Code(s): E11.621 - Type 2 diabetes mellitus with foot ulcer; L97.419 - Non-pressure chronic ulcer of right heel and midfoot with unspecified severity (6) Charcot foot due to diabetes mellitus Current Visit: No Status: Acute Status post reconstruction 10/[address] Mercer. (7) HTN (hypertension) Current Visit: No Status: Chronic Qualifiers: Hypertension type: essential hypertension Qualified Code(s): I10 - Essential (primary) hypertension (8) DM2 (diabetes mellitus, type 2) Current Visit: No Status: Chronic Uncontrolled. HgbA1C 9.4%. Recommend aggressive glucose monitoring and control to promote wound healing and prevent re-infection. Management per the primary team. 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 Weekend notes reviewed. No acute events noted overnight. Status post temporary dialysis catheter placement with HD initiation on 04/13/18. Status post I & D of the right ankle with removal of hardware and bone biopsy 04/09/18 and bedside wound closure with wound VAC placement on Sunday by Dr. Mercer. He states overall he feels okay. Denies fevers, chills, or rigors. He denies chest pain, shortness of breath, or cough. Denies nausea, vomiting, diarrhea, or constipation. Denies abdominal pain or appetite changes. Denies oral thrush or skin lesions. Denies pain at surgical site. Infect Dis PN-Objective Data - Labs CBC & Chem 7: 04/22/18 04:38 04/22/18 04:38 Labs: Laboratory Results - last 24 hr 04/21/18 04/21/18 04/21/18 11:38 16:00 20:12 WBC RBC Hgb Hct MCV MCH MCHC RDW Plt Count MPV Immature Gran % Seg Neutrophils % Lymphocytes % Monocytes % Eosinophils % Basophils % Neutrophils # Lymphocytes # Monocytes # Eosinophils # Basophils # Sodium Potassium Chloride Carbon Dioxide BUN Creatinine Est GFR ( Amer) Est GFR (Non-Af Amer) BUN/Creatinine Ratio Glucose POC Glucose 181 H 205 H 228 H Calculated Osmolality Calcium 04/22/18 04/22/18 04:38 04:38 WBC 6.9 RBC 3.03 L Hgb 8.3 L Hct 25.8 L MCV 85.1 MCH 27.4 L MCHC 32.2 RDW 14.0 Plt Count 421 H MPV 8.8 L Immature Gran % 0.7 Seg Neutrophils % 68.2 Lymphocytes % 20.6 Monocytes % 7.3 Eosinophils % 2.5 Basophils % 0.7 Neutrophils # 4.7 Lymphocytes # 1.4 Monocytes # 0.5 Eosinophils # 0.2 Basophils # 0.1 Sodium 138 Potassium 4.5 Chloride 101 Carbon Dioxide 27 BUN 44 H Creatinine 4.66 H Est GFR ( Amer) 16 L Est GFR (Non-Af Amer) 13 L BUN/Creatinine Ratio 9 Glucose 173 H POC Glucose Calculated Osmolality 301 H Calcium 8.9 Cultures: Cultures 04/09/18 23:09 Anaerobic Culture - Final Right Foot No anaerobes were recovered. 04/08/18 14:48 Blood Culture - Final Peripheral Venipuncture No growth. 04/09/18 23:09 Wound Culture - Final Right Foot Staphylococcus aureus Serology 04/17/18 04/13/18 04/11/18 Range/Units 04:45 09:42 14:50 Urine Color (Yellow) Urine Clarity (Clear) Urine pH (5.0-8.0) pH Units Ur Specific Bradford (1.010-1.025) Urine Protein (Neg-Trace) mg/dL Urine Glucose (UA) (Normal) mg/dL Urine Ketones (Negative) mg/dL Urine Blood (Negative) Urine Nitrite (Negative) Urine Bilirubin (Negative) Urine Urobilinogen (Normal) mg/dL Ur Leukocyte Esterase (Negative) Urine Microscopic RBC (0-3) per hpf Urine Microscopic WBC (0-3) per hpf Ur Eosinophil Smear 0 (None Seen) % Ur Squamous Epith Cells (None-Few) per lpf Amorphous Sediment (Few) Urine Bacteria (None-Few) per hpf Hyaline Casts (None-Few) per lpf Urine Yeast Ur Culture Indicated? (NO) Urine Creatinine 140 mg/dL Protein/Creatinin Ratio 1.31 H (0.00-0.20) mg/mg Urine Sodium 35.9 mEq/L Urine Total Protein 184 H (1-14) mg/dL Hep Bs Antigen Nonreactive (Nonreactive) Hep Bs Antibody 0.95 mIU/mL 04/11/18 Range/Units 14:50 Urine Color Yellow (Yellow) Urine Clarity Turbid A (Clear) Urine pH 5.5 (5.0-8.0) pH Units Ur Specific Bradford 1.020 (1.010-1.025) Urine Protein 100 H (Neg-Trace) mg/dL Urine Glucose (UA) 100 H (Normal) mg/dL Urine Ketones Negative (Negative) mg/dL Urine Blood Large H (Negative) Urine Nitrite Negative (Negative) Urine Bilirubin Negative (Negative) Urine Urobilinogen Normal (Normal) mg/dL Ur Leukocyte Esterase Negative (Negative) Urine Microscopic RBC 5-15 H (0-3) per hpf Urine Microscopic WBC 30-50 H (0-3) per hpf Ur Eosinophil Smear (None Seen) % Ur Squamous Epith Cells Many H (None-Few) per lpf Amorphous Sediment Moderate H (Few) Urine Bacteria None Seen (None-Few) per hpf Hyaline Casts None Seen (None-Few) per lpf Urine Yeast Test Not Performed Ur Culture Indicated? NO (NO) Urine Creatinine mg/dL Protein/Creatinin Ratio (0.00-0.20) mg/mg Urine Sodium mEq/L Urine Total Protein (1-14) mg/dL Hep Bs Antigen (Nonreactive) Hep Bs Antibody mIU/mL Exam - Constitutional Vitals: Temp Pulse Resp BP Pulse Ox 97.4 F L 55 18 134/82 93 04/22/18 07:19 04/22/18 07:19 04/22/18 07:19 04/22/18 07:19 04/22/18 07:19 General appearance: cooperative, morbidly obese, no acute distress - Head Head exam: Present: atraumatic, normal inspection, normocephalic - Eye Eye exam: Present: EOMI, normal appearance, PERRL Pupils: Present: normal accommodation - ENT ENT exam: Present: mucous membranes moist - Neck Neck exam: Present: normal inspection Additional comments: Temporary dialysis catheter noted to the right neck with transparent dressing C/ D/I, currently accessed for HD. - Respiratory Respiratory exam: Present: CTAB. Absent: rales, respiratory distress, rhonchi, wheezes - Cardiovascular Cardiovascular exam: Present: RRR, +S1, +S2 - GI/Abdominal GI/Abdominal exam: Present: distended (obese), normal bowel sounds, soft. Absent: tenderness Additional comments: Latif catheter noted to be draining clear yellow urine. - Extremities Exam Extremities exam: Absent: joint swelling, pedal edema, tenderness Additional comments: Right foot dressing/splint intact. Wound VAC with 125mm Hg continuous suction without leak. No drainage noted in the canister. - Neurological Exam Neurological exam: Present: alert, oriented X3, no focal deficits - Psychiatric Psychiatric exam: Present: normal affect, normal mood - Skin Skin exam: Present: dry, intact, normal color, warm - VTE Documentation of Mechanical Device: Intermittent pneumatic compression device Consult Discharge Plan - Plan Referrals: Agueda Rahman CNP [Advanced Practice Nurse] - 05/09/18 8:40 am Dolly Garcia CNP [Primary Care Provider] - - Attending Attestation I examined this patient and my medical decision-making was reviewed with the Resident Physician. I agree with the documented findings, disposition and treatment plan as described except to the extent set forth below.
--- NOTE | 2018-04-22 09:14 | Nephrology Progress Note ---
Date of Encounter: 04/22/18 Time of Encounter: 09:12 - Assessment and Plan (1) YESENIA (acute kidney injury) Current Visit: Yes Status: Acute HD today, tolerating well. Will watch for signs of renal recovery. Continue to avoid nephrotoxins and renal dose all medications. UOP 1450 yesterday. Strict I/O. Scr 4.66 Gfr 13. NPO tonight at midnight for permacath line placement. (2) Abscess of right foot Current Visit: Yes Status: Acute Per podiatry. (3) Diabetic foot ulcer Current Visit: Yes Status: Acute See above. Qualifiers: Diabetic foot ulcer location: heel Diabetes mellitus type: type 2 Laterality: right Non-pressure ulcer stage: unspecified non-pressure ulcer stage Qualified Code(s): E11.621 - Type 2 diabetes mellitus with foot ulcer; L97.419 - Non-pressure chronic ulcer of right heel and midfoot with unspecified severity (4) Hyponatremia syndrome Current Visit: Yes Status: Acute Resolved. Subjective Principal diagnosis: RLE swelling/bleeding Interval history: Pt seen and examined during HD. No c/o of nausea/vomiting/diarrhea. Objective - Vital Signs Vital signs: Vital Signs Temp Pulse Resp BP Pulse Ox 04/22/18 07:19 97.4 F L 55 18 134/82 93 04/22/18 03:42 98.0 F 53 19 151/81 95 04/21/18 23:29 97.6 F 56 22 151/72 95 04/21/18 19:35 97.6 F 74 21 186/76 94 04/21/18 15:23 98.1 F 61 17 146/75 93 04/21/18 11:26 98.0 F 86 18 115/72 92 Intake and Output 04/21/18 04/22/18 04/22/18 23:59 07:59 15:59 Intake Total 260 / 260 Output Total 665 / 665 Balance -405 / -405 - / - Intake: IV Fluids 20 / Rocephin 2,000 MG In Water for inj. (sterile) 20 ML @ 600 mls/ hr IVP DAILY COUNT INCLUDES THE [facility] Rx#:[id number] Oral 240 / 240 Output: Catheter 650 / 650 0 / 0 Urethral (Latif) 450 / 450 Wound Drainage Right Foot Other: Meal Dinner Percent of Meal Consumed 100% Stool Size Small Stool Consistency soft Stool Color Brown # Bowel Movements 1 0 Weight 187.9 kg Blood Glucose* 228 154 Patient Weight 04/22/18 23:59 Weight 187.9 kg - General Appearance General appearance: Present: well-developed, well-nourished, obese EENT: Present: ATNC, hearing intact, vision intact Neck: Present: supple Respiratory: Present: clear Cardiology: Present: no edema, normal S1, normal S2 Dialysis Vascular Access: Venous Catheter (Temp line Right neck, DRSG C/D/I.) Gastrointestinal: Present: normoactive bowel sounds, no tenderness, no guarding Integumentary: Present: no rash, warm and dry Neurologic: Present: alert and oriented x3 Psychiatric: Present: mood/affect appropriate, cooperative - Lab 04/22/18 04:38 04/22/18 04:38 Most recent lab results Calcium 8.9 mg/dL (8.6-10.3) 04/22/18 04:38 Phosphorus 5.3 mg/dL (2.7-4.5) H 04/12/18 08:56 Magnesium 1.8 mg/dL (1.6-2.6) 04/12/18 08:56 Urine Creatinine 140 mg/dL 04/11/18 14:50 Urine Sodium 35.9 mEq/L 04/11/18 14:50 Urine Total Protein 184 mg/dL (1-14) H 04/11/18 14:50 - VTE Documentation of Mechanical Device: Intermittent pneumatic compression device Consult Discharge Plan - Plan Referrals: Agueda Rahman CNP [Advanced Practice Nurse] - 05/09/18 8:40 am Dolly Garcia CNP [Primary Care Provider] -
--- NOTE | 2018-04-22 17:01 | Podiatry Progress Note ---
Date of Encounter: 04/22/18 Time of Encounter: 16:30 - Assessment and Plan (1) Charcot foot due to diabetes mellitus Current Visit: No Status: Acute (2) Diabetic foot ulcer Current Visit: Yes Status: Acute Chronic charcot s/p surgery in 2017. Developed abscess and infection prior to admission. s/p I&D and removal of hardware. Right lateral ankle was excisionally debrided removing fibrotic tissue on the plantar lateral aspect of the right foot/ankle on 04/19/18. No purulence expressed from the wound sites. 25 ml of serosanguineous drainage observed in canister. WBC: 6.9 Microbiology 04/09/18 23:09 Right Foot Anaerobic Culture - Final No anaerobes were recovered. 04/08/18 11:49 Peripheral Venipuncture Blood Culture - Final No growth. 04/08/18 14:48 Peripheral Venipuncture Blood Culture - Final No growth. 04/09/18 23:09 Right Foot Wound Culture - Final Staphylococcus aureus 04/08/18 11:30 Right Foot Wound Culture - Final Group C Streptococcus Plan: Wound vac changed at bedside, irrigated wound with saline, pat dry applied adaptic, small black simplace wound vac sponge, connected to 125 mmhg low continuous suction. Change every M-W-. Follow up with Dr. Mercer in the wound care center one week after discharge. IV abx per infectious disease. Non weight bearing to RLE. Qualifiers: Diabetic foot ulcer location: heel Diabetes mellitus type: type 2 Laterality: right Non-pressure ulcer stage: unspecified non-pressure ulcer stage Qualified Code(s): E11.621 - Type 2 diabetes mellitus with foot ulcer; L97.419 - Non-pressure chronic ulcer of right heel and midfoot with unspecified severity (3) Abscess of right foot Current Visit: Yes Status: Acute Subjective Principal diagnosis: RLE swelling/bleeding Interval history: Patient is lying in bed with posterior splint intact to the RLE and connected to a wound vac. Patient has chronic charcot s/p surgery in 2017. Developed abscess and infection prior to admission. s/p I&D and removal of hardware. Dr. Mercer performed a right lateral ankle excisional debridement removing fibrotic tissue on the plantar lateral aspect of the right foot/ankle on 04/19/18. Patient had dialysis today. No c/o pain, fever or chills. Objective - Vital Signs Vital Signs: Vital Signs Temp Pulse Resp BP Pulse Ox 04/22/18 15:03 99.4 F 54 18 121/73 93 04/22/18 12:39 97.9 F 18 166/77 04/22/18 12:00 139/76 04/22/18 11:45 152/85 04/22/18 11:30 163/79 04/22/18 11:15 150/76 04/22/18 11:00 168/82 04/22/18 10:45 148/76 04/22/18 10:30 130/90 04/22/18 10:15 144/74 04/22/18 10:00 161/86 04/22/18 09:45 164/86 04/22/18 09:30 181/96 04/22/18 09:15 161/90 04/22/18 09:00 156/87 04/22/18 08:45 177/95 04/22/18 08:30 185/82 04/22/18 08:15 189/97 04/22/18 08:00 9705 F H 18 171/90 04/22/18 07:19 97.4 F L 55 18 134/82 93 04/22/18 03:42 98.0 F 53 19 151/81 95 04/21/18 23:29 97.6 F 56 22 151/72 95 04/21/18 19:35 97.6 F 74 21 186/76 94 Intake and Output 04/22/18 04/22/18 04/22/18 07:59 15:59 23:59 Intake Total 740 / 740 Output Total 4000 / 4000 Balance -15 / -15 -3260 / -3260 Intake: IV Fluids 20 / 20 Rocephin 2,000 MG In Water for 20 inj. (sterile) 20 ML @ 600 mls/ hr IVP DAILY [facility] Rx#:[id number] Oral 120 / 120 Intake, Rinseback and Flushes 600 / 600 Output: Urine 100 / 100 Total Dialysis (HD) Output 3600 / 3600 Catheter 0 / 0 300 / 300 Wound Drainage Right Foot Other: Meal Lunch Percent of Meal Consumed 20% # Bowel Movements 0 0 Weight 187.9 kg Blood Glucose* 154 180 Hemodialysis Net Fluid Removed 3000 (mL) Patient Weight 04/22/18 23:59 Weight 187.9 kg - Exam Exam: General appearance: alert awake oriented X 3. Calm and pleasant, no acute distress.. Vascular: No evidence of cyanosis, pallor or rubor, Edema graded at 1+/4, Skin Tempature warm, No calf pain with manual compression. capillary refill time is immediate to digits. Neurologic: Sensation diminished with light touch to foot. . Postop Exam: S/P Open wound to the right lateral ankle measuring 5 cm in length x 1 cm x 3 cm in depth. Ligament exposed. No probe to bone, no fluctuance. Wound edges are macerated. Sutures intact to incision lines. No erythema, no pus, no odor, no cellulitis. 25 mls of serosanguineous drainage. - Lab Result Diagrams: 04/22/18 04:38 04/22/18 04:38 Labs: Abnormal lab results RBC 3.03 M/mcL (4.19-5.50) L 04/22/18 04:38 Hgb 8.3 g/dL (12.9-16.9) L 04/22/18 04:38 Hct 25.8 % (37.5-50.1) L 04/22/18 04:38 MCH 27.4 pg (28.0-33.3) L 04/22/18 04:38 Plt Count 421 K/mcL (140-400) H 04/22/18 04:38 MPV 8.8 fL (9.4-12.4) L 04/22/18 04:38 Metamyelocytes % 2.0 % (0) H 04/11/18 08:13 Nucleated RBCs/100 WBC 0.3 /100 WBC (0) H 04/21/18 07:09 Platelet Estimate Slight increase (Normal) H 04/16/18 06:26 ESR 106 mm/hr (0-10) H 04/08/18 18:00 PT 12.8 Seconds (9.4-12.1) H 04/08/18 11:37 BUN 44 mg/dL (6-20) H 04/22/18 04:38 Creatinine 4.66 mg/dL (0.70-1.30) H 04/22/18 04:38 Est GFR ( Amer) 16 (> 60) L 04/22/18 04:38 Est GFR (Non-Af Amer) 13 (> 60) L 04/22/18 04:38 Glucose 173 mg/dL (70-105) H 04/22/18 04:38 POC Glucose 228 mg/dL (70-99) H 04/21/18 20:12 Hemoglobin A1c 9.4 % (-5.6) H 04/09/18 06:56 Calculated Osmolality 301 (280-300) H 04/22/18 04:38 Phosphorus 5.3 mg/dL (2.7-4.5) H 04/12/18 08:56 Creatine Kinase 277 Units/L (30-223) H 04/13/18 15:02 C-Reactive Protein > 300 mg/L (Less than 10) H 04/08/18 18:00 Urine Clarity Turbid (Clear) A 04/11/18 14:50 Urine Protein 100 mg/dL (Neg-Trace) H 04/11/18 14:50 Urine Glucose (UA) 100 mg/dL (Normal) H 04/11/18 14:50 Urine Blood Large (Negative) H 04/11/18 14:50 Urine Microscopic RBC 5-15 per hpf (0-3) H 04/11/18 14:50 Urine Microscopic WBC 30-50 per hpf (0-3) H 04/11/18 14:50 Ur Squamous Epith Cells Many per lpf (None-Few) H 04/11/18 14:50 Amorphous Sediment Moderate (Few) H 04/11/18 14:50 Protein/Creatinin Ratio 1.31 mg/mg (0.00-0.20) H 04/11/18 14:50 Urine Total Protein 184 mg/dL (1-14) H 04/11/18 14:50 Vancomycin Trough 30 mcg/mL (5-10) H 04/10/18 12:44 - VTE Documentation of Mechanical Device: Intermittent pneumatic compression device Consult Discharge Plan - Plan Referrals: Agueda Rahman CNP [Advanced Practice Nurse] - 05/09/18 8:40 am Dolly Garcia CNP [Primary Care Provider] -
--- NOTE | 2018-04-22 18:25 | Internal Med Progress Note ---
Date of Encounter: 04/22/18 Time of Encounter: 11:00 - Assessment and plan (1) Acute on chronic renal failure Current Visit: Yes Status: Acute Assessment and plan: Patient's creatinine 4.66 this morning Nephrology with recommendations for a PermCath on 04/23/18 Qualifiers: Chronic kidney disease stage: stage 3 (moderate) Qualified Code(s): N17.9 - Acute kidney failure, unspecified; N18.3 - Chronic kidney disease, stage 3 ( moderate) (2) Osteomyelitis Current Visit: Yes Status: Acute Assessment and plan: Continue ceftriaxone 2 g IV daily per infectious disease recommendations Recommendations for 6 week course of IV antibiotic treatment as an outpatient Podiatry with plans for bedside closure of the wound on 04/18/18 and for application of wound VAC Physical therapy will be consulted for recommendations for SNF placement Qualifiers: Osteomyelitis type: other acute Osteomyelitis location: foot Laterality: right Qualified Code(s): M86.171 - Other acute osteomyelitis, right ankle and foot (3) Sepsis Current Visit: Yes Status: Resolved Assessment and plan: Resolved; secondary to the above Qualifiers: Sepsis type: sepsis due to unspecified organism Qualified Code(s): A41.9 - Sepsis, unspecified organism (4) HTN (hypertension) Current Visit: No Status: Chronic Assessment and plan: Stable with current medication Qualifiers: Hypertension type: essential hypertension Qualified Code(s): I10 - Essential (primary) hypertension (5) DM2 (diabetes mellitus, type 2) Current Visit: No Status: Chronic Assessment and plan: Continue sliding scale insulin and basal insulin Qualifiers: Diabetes mellitus care home insulin use: with galley worker use Diabetes mellitus complication status: with hyperosmolarity Diabetes mellitus complication detail: without coma Qualified Code(s): E11.00 - Type 2 diabetes mellitus with hyperosmolarity without nonketotic hyperglycemic-hyperosmolar coma (NKHHC); 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 (6) NEHEMIAH (obstructive sleep apnea) Current Visit: No Status: Resolved Assessment and plan: On CPAP, compliant in hospital (7) DVT prophylaxis Current Visit: No Status: Acute Assessment and plan: Heparin subcutaneous - Time Spent With Patient Total time spent is greater than 50% in coordination of care (as documented) at patient's floor/unit and/or counseling patient: - Subjective Interval history: Patient with acute renal failure managed by nephrology with intermittent hemodialysis; plan for permacath on 04/23/18 Patient also with right foot osteomyelitis on IV antibiotics to complete a total course of 6 weeks per infectious disease Physical therapy consulted for potential SNF placement - Constitutional Vitals: Temp Pulse Resp BP Pulse Ox 99.4 F 54 18 121/73 93 04/22/18 15:03 04/22/18 15:03 04/22/18 15:03 04/22/18 15:03 04/22/18 15:03 General appearance: Present: A&O X 3, morbidly obese, no acute distress - Respiratory Respiratory exam: Present: CTAB. Absent: accessory muscle use, rales, rhonchi, wheezes - Cardiovascular Cardiovascular exam: Present: RRR, +S1, +S2. Absent: diastolic murmur, gallop, rubs, systolic murmur Internal Medicine: Result - Labs CBC & Chem 7: 04/22/18 04:38 04/22/18 04:38 Labs: Short CBC 04/22/18 Range/Units 04:38 WBC 6.9 (4.3-11.1) K/mcL Hgb 8.3 L (12.9-16.9) g/dL Hct 25.8 L (37.5-50.1) % Plt Count 421 H (140-400) K/mcL Neutrophils # 4.7 (1.6-8.9) K/mcL BMP 04/22/18 04:38 Sodium 138 Potassium 4.5 Chloride 101 Carbon Dioxide 27 BUN 44 H Creatinine 4.66 H Glucose 173 H Calcium 8.9 - ABG Interpretation ABG results: PT/INR, D-dimer PT 12.8 Seconds (9.4-12.1) H 04/08/18 11:37 - VTE Documentation of Mechanical Device: Intermittent pneumatic compression device Consult Discharge Plan - Plan Referrals: Agueda Rahman CNP [Advanced Practice Nurse] - 05/09/18 8:40 am Dolly Garcia CNP [Primary Care Provider] -
[2018-04-22] MEDS: traMADol 50 MG TABLET PO PRN (19:19)
[2018-04-22] MEDS: tiZANidine 4 MG TABLET PO SCH (21:29)
[2018-04-23] MEDS: *HR* Heparin 5,000 UNIT/ML VIAL SQ SCH ×3 (00:40→16:50)
[2018-04-23 04:00] LABS: Basophils # 0.1 K/mcL (0.0-0.2); Basophils % 0.7 %; Eosinophils # 0.2 K/mcL (0.0-0.6); Eosinophils % 2.3 %; Hemoglobin 8.6 g/dL (12.9-16.9); Immature Granulocytes % 0.9 % (0-4); Lymphocytes # 1.5 K/mcL (0.6-4.6); Lymphocytes % 20.8 %; Mean Corpuscular HGB Conc 31.9 g/dL (31.6-35.5); Mean Corpuscular Hemoglobin 27.2 pg (28.0-33.3); Mean Corpuscular Volume 85.4 fL (83.0-100.0); Mean Platelet Volume 8.8 fL (9.4-12.4); Monocytes # 0.6 K/mcL (0.0-1.3); Monocytes % 7.9 %; Platelet Count 360 K/mcL (140-400); Red Blood Count 3.16 M/mcL (4.19-5.50); Red Cell Distribution Width 13.8 % (11.5-14.5); Segmented Neutrophils % 67.4 %
[2018-04-23 04:14] LABS: Potassium 4.3 mEq/L (3.5-5.1)
[2018-04-23] MEDS: Insulin LISPRO 300 UNITS/3 ML VIAL SQ SCH ×4 (07:37→20:43)
[2018-04-23] MEDS: Insulin DETEMIR 100 UNIT/ML X5UNITS SQ SCH ×2 (09:10→20:38)
[2018-04-23] MEDS: cefTRIAXone 2,000 MG in Water for inj. (sterile) 20 ML 20 ML IVP SCH (09:17)
[2018-04-23] MEDS: Cyanocobalamin (B-12) 1,000 MCG TABLET PO SCH (09:18)
[2018-04-23] MEDS: amLODIPine 5 MG TABLET PO SCH (09:18)
[2018-04-23] MEDS: ARIPiprazole 10 MG TABLET PO SCH (09:18)
[2018-04-23] MEDS: Gabapentin 100 MG CAPSULE PO SCH ×2 (09:19→20:38)
--- NOTE | 2018-04-23 12:55 | Infectious Disease Progress No ---
Date of Encounter: 04/23/18 Time of Encounter: 12:53 - Assessment and Plan (1) Sepsis Current Visit: Yes Status: Resolved The patient had two SIRS criteria on admission. Likely secondary to right foot infection and OM. Resolved. Afebrile. WBC normalized. Blood cultures drawn 04/08/18 are negative x 2 sets. Qualifiers: Sepsis type: sepsis due to unspecified organism Qualified Code(s): A41.9 - Sepsis, unspecified organism (2) Osteomyelitis Current Visit: Yes Status: Acute Causative organism: GCS and MSSA. Location: Right foot talus and navicularis. Likely secondary to right foot DFU. X-ray of the right foot completed 04/08/18 showed bony erosion of the talus and navicularis. ESR 106, CRP >300. Podiatry consulted and following. Status post I&D of the right ankle/foot, removal of hardware, and bone biopsy. Operative note was reviewed. Purulence noted Intra-Op adjacent to the hardware. Intraoperative cultures are positive for MSSA. Pathology positive for OM of the talus bone. Status post partial closure with wound VAC placement at the bedside on Sunday by Dr. Mercer. Wound care and activity restrictions as outlined by the podiatry team. Continue Rocephin 2 grams IV daily (day 13). Duration of treatment depends on the clinical picture, but likely 6 weeks of IV antibiotics. Continue to monitor renal function. Will need weekly CBC, BUN/Cr, ESR, CRP. Will need weekly IV care. Follow up with ID 05/09/18 at 0840. Qualifiers: Osteomyelitis type: other Osteomyelitis location: foot Laterality: right Qualified Code(s): M86.8X7 - Other osteomyelitis, ankle and foot (3) Abscess of right foot Current Visit: Yes Status: Acute Location: Right foot. Causative organism: GCS and MSSA. Status post I & D 04/09/[address] Mercer. Antibiotics as above. (4) YESENIA (acute kidney injury) Current Visit: Yes Status: Acute YESENIA on CKD. Urine output improved. Etiology unclear, but likely multifactorial: hypotension post-op, Vancomycin, dehydration Continue to trend. Nephrology consulted and following. HD initiated 04/13/18. RP UTS negative. Avoid additional nephrotoxins. Dose-adjust antibiotics as needed. (5) Diabetic foot ulcer Current Visit: Yes Status: Acute Etiology unclear. Podiatry consulted and following. Qualifiers: Diabetic foot ulcer location: heel Diabetes mellitus type: type 2 Laterality: right Non-pressure ulcer stage: unspecified non-pressure ulcer stage Qualified Code(s): E11.621 - Type 2 diabetes mellitus with foot ulcer; L97.419 - Non-pressure chronic ulcer of right heel and midfoot with unspecified severity (6) Charcot foot due to diabetes mellitus Current Visit: No Status: Acute Status post reconstruction 10/[address] Mercer. (7) HTN (hypertension) Current Visit: Yes Status: Chronic Qualifiers: Hypertension type: essential hypertension Qualified Code(s): I10 - Essential (primary) hypertension (8) DM2 (diabetes mellitus, type 2) Current Visit: Yes Status: Chronic Uncontrolled. HgbA1C 9.4%. Recommend aggressive glucose monitoring and control to promote wound healing and prevent re-infection. Management per the primary team. Qualifiers: Diabetes mellitus surgical attendant insulin use: with surgical attendant use Diabetes mellitus complication status: with hyperosmolarity Diabetes mellitus complication detail: without coma Qualified Code(s): E11.00 - Type 2 diabetes mellitus with hyperosmolarity without nonketotic hyperglycemic-hyperosmolar coma (NKHHC); Z79.4 - correction (current) use of insulin (9) NEHEMIAH (obstructive sleep apnea) Current Visit: No Status: Resolved (10) Morbid obesity with BMI of 50.0-59.9, adult Current Visit: No Status: Acute - Subjective Interval history: Patient seen and examined. No acute events noted overnight. Status post temporary dialysis catheter placement with HD initiation on 04/13/18. Status post I & D of the right ankle with removal of hardware and bone biopsy 04/09/18 and bedside wound closure with wound VAC placement on Sunday by Dr. Mercer. He states overall he feels okay. Denies fevers, chills, or rigors. He denies chest pain, shortness of breath, or cough. Denies nausea, vomiting, diarrhea, or constipation. Denies abdominal pain or appetite changes. Denies oral thrush or skin lesions. Denies pain at surgical site. Pending Perma-cath placement later today. Infect Dis PN-Objective Data - Labs CBC & Chem 7: 04/23/18 03:08 04/23/18 03:08 Labs: Laboratory Results - last 24 hr 04/22/18 04/22/18 04/22/18 07:23 16:06 20:29 WBC RBC Hgb Hct MCV MCH MCHC RDW Plt Count MPV Immature Gran % Seg Neutrophils % Lymphocytes % Monocytes % Eosinophils % Basophils % Neutrophils # Lymphocytes # Monocytes # Eosinophils # Basophils # Sodium Potassium Chloride Carbon Dioxide BUN Creatinine Est GFR ( Amer) Est GFR (Non-Af Amer) BUN/Creatinine Ratio Glucose POC Glucose 154 H 180 H 200 H Calculated Osmolality Calcium 04/23/18 04/23/18 03:08 03:08 WBC 7.4 RBC 3.16 L Hgb 8.6 L Hct 27.0 L MCV 85.4 MCH 27.2 L MCHC 31.9 RDW 13.8 Plt Count 360 MPV 8.8 L Immature Gran % 0.9 Seg Neutrophils % 67.4 Lymphocytes % 20.8 Monocytes % 7.9 Eosinophils % 2.3 Basophils % 0.7 Neutrophils # 5.0 Lymphocytes # 1.5 Monocytes # 0.6 Eosinophils # 0.2 Basophils # 0.1 Sodium 136 Potassium 4.3 Chloride 100 Carbon Dioxide 28 BUN 31 H Creatinine 3.66 H Est GFR ( Amer) 22 L Est GFR (Non-Af Amer) 18 L BUN/Creatinine Ratio 8 Glucose 184 H POC Glucose Calculated Osmolality 293 Calcium 9.0 Cultures: Cultures 04/09/18 23:09 Anaerobic Culture - Final Right Foot No anaerobes were recovered. 04/08/18 14:48 Blood Culture - Final Peripheral Venipuncture No growth. 04/09/18 23:09 Wound Culture - Final Right Foot Staphylococcus aureus Serology 04/17/18 04/13/18 04/11/18 Range/Units 04:45 09:42 14:50 Urine Color (Yellow) Urine Clarity (Clear) Urine pH (5.0-8.0) pH Units Ur Specific [place] (1.010-1.025) Urine Protein (Neg-Trace) mg/dL Urine Glucose (UA) (Normal) mg/dL Urine Ketones (Negative) mg/dL Urine Blood (Negative) Urine Nitrite (Negative) Urine Bilirubin (Negative) Urine Urobilinogen (Normal) mg/dL Ur Leukocyte Esterase (Negative) Urine Microscopic RBC (0-3) per hpf Urine Microscopic WBC (0-3) per hpf Ur Eosinophil Smear 0 (None Seen) % Ur Squamous Epith Cells (None-Few) per lpf Amorphous Sediment (Few) Urine Bacteria (None-Few) per hpf Hyaline Casts (None-Few) per lpf Urine Yeast Ur Culture Indicated? (NO) Urine Creatinine 140 mg/dL Protein/Creatinin Ratio 1.31 H (0.00-0.20) mg/mg Urine Sodium 35.9 mEq/L Urine Total Protein 184 H (1-14) mg/dL Hep Bs Antigen Nonreactive (Nonreactive) Hep Bs Antibody 0.95 mIU/mL 04/11/18 Range/Units 14:50 Urine Color Yellow (Yellow) Urine Clarity Turbid A (Clear) Urine pH 5.5 (5.0-8.0) pH Units Ur Specific [place] 1.020 (1.010-1.025) Urine Protein 100 H (Neg-Trace) mg/dL Urine Glucose (UA) 100 H (Normal) mg/dL Urine Ketones Negative (Negative) mg/dL Urine Blood Large H (Negative) Urine Nitrite Negative (Negative) Urine Bilirubin Negative (Negative) Urine Urobilinogen Normal (Normal) mg/dL Ur Leukocyte Esterase Negative (Negative) Urine Microscopic RBC 5-15 H (0-3) per hpf Urine Microscopic WBC 30-50 H (0-3) per hpf Ur Eosinophil Smear (None Seen) % Ur Squamous Epith Cells Many H (None-Few) per lpf Amorphous Sediment Moderate H (Few) Urine Bacteria None Seen (None-Few) per hpf Hyaline Casts None Seen (None-Few) per lpf Urine Yeast Test Not Performed Ur Culture Indicated? NO (NO) Urine Creatinine mg/dL Protein/Creatinin Ratio (0.00-0.20) mg/mg Urine Sodium mEq/L Urine Total Protein (1-14) mg/dL Hep Bs Antigen (Nonreactive) Hep Bs Antibody mIU/mL Exam - Constitutional Vitals: Temp Pulse Resp BP Pulse Ox 98.0 F 51 18 151/74 96 04/23/18 10:49 04/23/18 10:49 04/23/18 10:49 04/23/18 10:49 04/23/18 10:49 General appearance: cooperative, morbidly obese, no acute distress - Head Head exam: Present: atraumatic, normal inspection, normocephalic - Eye Eye exam: Present: EOMI, normal appearance, PERRL Pupils: Present: normal accommodation - ENT ENT exam: Present: mucous membranes moist - Neck Neck exam: Present: normal inspection Additional comments: Temporary dialysis catheter noted to the right neck with transparent dressing C/ D/I. - Respiratory Respiratory exam: Present: CTAB. Absent: rales, respiratory distress, rhonchi, wheezes - Cardiovascular Cardiovascular exam: Present: RRR, +S1, +S2 - GI/Abdominal GI/Abdominal exam: Present: distended (obese), normal bowel sounds, soft. Absent: tenderness Additional comments: Latif catheter draining clear yellow urine. - Extremities Exam Extremities exam: Absent: joint swelling, pedal edema, tenderness Additional comments: Right foot splint noted to be C/D/I. Wound VAC noted with scant serous drainage. No leak. Continuous suction at 125mm Hg. - Neurological Exam Neurological exam: Present: alert, oriented X3, no focal deficits - Psychiatric Psychiatric exam: Present: normal affect, normal mood - Skin Skin exam: Present: dry, intact, normal color, warm - Additional findings Additional findings: Powerglide noted to the right upper arm with transparent dressing C/D/I. - VTE Documentation of Mechanical Device: Intermittent pneumatic compression device Consult Discharge Plan - Plan Referrals: Agueda Rahman CNP [Advanced Practice Nurse] - 05/09/18 8:40 am Dolly Garcia CNP [Primary Care Provider] - - Attending Attestation I examined this patient and my medical decision-making was reviewed with the Resident Physician. I agree with the documented findings, disposition and treatment plan as described except to the extent set forth below.
--- NOTE | 2018-04-23 14:50 | Internal Med Progress Note ---
Date of Encounter: 04/23/18 Time of Encounter: 08:55 - Assessment and plan (1) Acute on chronic renal failure Current Visit: Yes Status: Acute Assessment and plan: Requiring hemodialysis. Nephrology following. Tunneled catheter placement planned for today. Patient will continue to undergo dialysis for now. Follow up with nephrology as outpatient. Qualifiers: Chronic kidney disease stage: stage 3 (moderate) Qualified Code(s): N17.9 - Acute kidney failure, unspecified; N18.3 - Chronic kidney disease, stage 3 ( moderate) (2) Sepsis Current Visit: Yes Status: Resolved Assessment and plan: Due to right foot osteomyelitis. Improved. Continue antibiotics to treat underlying osteoarthritis. Blood cultures are negative. (3) Osteomyelitis Current Visit: Yes Status: Acute Assessment and plan: Due to MSSA and GCS. Infectious disease following. At this time recommend 6 weeks of IV antibiotics with Rocephin 2 g daily. Wound VAC in place. (4) HTN (hypertension) Current Visit: Yes Status: Chronic Assessment and plan: Blood pressure remains elevated. Currently on Lopressor 25 mg twice daily and amlodipine 10 mg daily. We will add lisinopril (5) DM2 (diabetes mellitus, type 2) Current Visit: Yes Status: Chronic Assessment and plan: Well-controlled. Continue current insulin regimen (6) DVT prophylaxis Current Visit: Yes Status: Acute Assessment and plan: Continue subcutaneous heparin - Time Spent With Patient Total time spent is greater than 50% in coordination of care (as documented) at patient's floor/unit and/or counseling patient: - Subjective Interval history: Patient is doing well overall. Is awake and alert. He is awaiting tunneled catheter placement scheduled for later today. No acute issues overnight. - Constitutional Vitals: Temp Pulse Resp BP Pulse Ox 98.0 F 51 18 151/74 96 04/23/18 10:49 04/23/18 10:49 04/23/18 10:49 04/23/18 10:49 04/23/18 10:49 General appearance: Present: A&O X 3, morbidly obese, no acute distress, answers questions appropriately - Respiratory Respiratory exam: Present: CTAB. Absent: accessory muscle use, rales, rhonchi, wheezes - Cardiovascular Cardiovascular exam: Present: RRR, +S1, +S2. Absent: diastolic murmur, gallop, rubs, systolic murmur - GI/Abdominal GI/Abdominal exam: Present: normal bowel sounds, soft, no peritoneal signs. Absent: distended, tenderness - Extremities Exam Extremities exam: Present: warm, radial pulses palpable and symmetrical. Absent : calf tenderness, cyanotic, pedal edema Additional comments: Right foot bandaged and wound VAC in place - Neurological Exam Neurological exam: Present: alert, oriented X3, no focal deficits. Absent: facial droop, speech deficit Internal Medicine: Result - Labs CBC & Chem 7: 04/23/18 03:08 04/23/18 03:08 Labs: Short CBC 04/23/18 Range/Units 03:08 WBC 7.4 (4.3-11.1) K/mcL Hgb 8.6 L (12.9-16.9) g/dL Hct 27.0 L (37.5-50.1) % Plt Count 360 (140-400) K/mcL Neutrophils # 5.0 (1.6-8.9) K/mcL BMP 04/23/18 03:08 Sodium 136 Potassium 4.3 Chloride 100 Carbon Dioxide 28 BUN 31 H Creatinine 3.66 H Glucose 184 H Calcium 9.0 - ABG Interpretation ABG results: PT/INR, D-dimer PT 12.8 Seconds (9.4-12.1) H 04/08/18 11:37 - VTE Documentation of Mechanical Device: Intermittent pneumatic compression device Consult Discharge Plan - Plan Referrals: Agueda Rahman CNP [Advanced Practice Nurse] - 05/09/18 8:40 am Dolly Garcia CNP [Primary Care Provider] -
[2018-04-23] MEDS ORDERED: Heparin 1,000 UNITS/500 mL 500 ML ONE (14:52)
[2018-04-23] MEDS ORDERED: *HR* Midazolam HCl 2 MG/2 ML VIAL IVP ONE (14:55)
[2018-04-23] MEDS ORDERED: *HR* FentaNYL (PF) 100 MCG/2 ML VIAL IVP ONE (14:55)
--- NOTE | 2018-04-23 14:57 | Pre-Sedation Evaluation ---
Pre-sedation evaluation - Pre-sedation checklist Date of procedure: 04/12/18 Procedure: permacath Recent Vitals: Last Vital Signs Temp 98.0 F 04/23/18 10:49 Pulse 51 04/23/18 10:49 Resp 18 04/23/18 10:49 BP 151/74 04/23/18 10:49 Pulse Ox 96 04/23/18 10:49 Previous reaction to sedatives/anesthetics: No Dietary Status: NPO after Midnight Airway Assessment: Patient can open mouth completely, TMJ function normal, Micrognathia (under-bite, receding chin) absent, Neck with adequate range of motion Possible difficult airway: No ASA Classification *see protocol: CLASS II-Mild systemic disease Plan of Care: Pt appropriate candidate for procedure/moderate/conscious sedation , Risks/benefits of procedure/sedation discussed w/ patient/family, If not NPO; Risk of intake outweiged by necessity to perform procedure
[2018-04-23] MEDS ORDERED: 0.9 % Sodium Chloride 500 ML ONE (15:15)
[2018-04-23] MEDS ORDERED: *HR* Heparin 5,000 UNIT/ML VIAL ONE (15:29)
--- NOTE | 2018-04-23 15:51 | IR Procedure Note ---
Date of procedure: 04/23/18 Consent Obtained: Written consent Timeout: Correct patient and procedure verified, Correct site verified, Time out performed, Skin prep completed Indications: renal failure Procedure Performed: permacath Was there an cook's assistant present: No Site/Technique: rt IJ Results/Findings: tip in RA Estimated blood loss (cc): 4 Complications: None; Tolerated procedure well Post Procedure Treatment Plan: dc to floor Specimen: none
[2018-04-23] MEDS: tiZANidine 4 MG TABLET PO SCH (20:38)
[2018-04-24 03:53] LABS: Basophils % 0.6 %; Eosinophils # 0.2 K/mcL (0.0-0.6); Eosinophils % 2.7 %; Hematocrit 25.7 % (37.5-50.1); Hemoglobin 8.3 g/dL (12.9-16.9); Immature Granulocytes % 0.5 % (0-4); Lymphocytes # 1.1 K/mcL (0.6-4.6); Mean Corpuscular HGB Conc 32.3 g/dL (31.6-35.5); Mean Corpuscular Hemoglobin 27.8 pg (28.0-33.3); Mean Platelet Volume 8.7 fL (9.4-12.4); Monocytes # 0.5 K/mcL (0.0-1.3); Monocytes % 7.6 %; Neutrophils # 4.5 K/mcL (1.6-8.9); Platelet Count 298 K/mcL (140-400); Red Blood Count 2.99 M/mcL (4.19-5.50); Red Cell Distribution Width 14.1 % (11.5-14.5); Segmented Neutrophils % 71.6 %
[2018-04-24 04:12] LABS: Calcium 8.9 mg/dL (8.6-10.3); Potassium 4.7 mEq/L (3.5-5.1)
[2018-04-24] MEDS ORDERED: 0.9 % Sodium Chloride 2,000 ML ONE (06:21)
[2018-04-24] MEDS ORDERED: 0.9 % Sodium Chloride 250 ML IVC PRN (06:32)
[2018-04-24] MEDS ORDERED: *HR* Heparin 10,000 UNIT/10 ML VIAL IV PRN (06:58)
[2018-04-24] MEDS ORDERED: 0.9 % Sodium Chloride 1,000 ML PRIME SCH (07:00)
[2018-04-24] MEDS ORDERED: *HR* Heparin 5,000 UNIT/ML VIAL ONE (08:05)
--- NOTE | 2018-04-24 09:58 | Nephrology Progress Note ---
Date of Encounter: 04/24/18 Time of Encounter: 08:30 - Assessment and Plan (1) YESENIA (acute kidney injury) Current Visit: Yes Status: Acute Pt was s/e while on HD for dialysis dependent YESENIA. His access had slow flows and higher arterial pressures, so I've added a little more heparin just while on HD. Continue iHD MWF until his ATN recovers. SW to help without an outpt chair until then. Thank you. (2) Abscess of right foot Current Visit: Yes Status: Acute As per primary (3) Anemia Current Visit: No Status: Acute Goal Hgb is 10-11 in the setting of renal disease. May need EPO and/or IV iron at some point. Qualifiers: Anemia type: unspecified type Qualified Code(s): D64.9 - Anemia, unspecified (4) DM2 (diabetes mellitus, type 2) Current Visit: Yes Status: Chronic As per primary. His DM and Obesity are renal risk factors. Qualifiers: Diabetes mellitus senior care insulin use: with senior care use Diabetes mellitus complication status: with hyperosmolarity Diabetes mellitus complication detail: without coma Qualified Code(s): E11.00 - Type 2 diabetes mellitus with hyperosmolarity without nonketotic hyperglycemic-hyperosmolar coma (NKHHC); Z79.4 - retirement (current) use of insulin (5) HTN (hypertension) Current Visit: Yes Status: Chronic Holding / avoiding an SOHAIL or ARB d/t the YESENIA. Qualifiers: Hypertension type: essential hypertension Qualified Code(s): I10 - Essential (primary) hypertension Subjective Principal diagnosis: RLE swelling/bleeding Interval history: Pt was s/e. He received his Permacath yesterday he said. He was seen in the HD unit. He did not affirm N/V/D or other complaints. Objective - Vital Signs Vital signs: Vital Signs Temp Pulse Resp BP Pulse Ox 04/24/18 09:00 164/84 04/24/18 08:45 160/88 04/24/18 08:30 161/90 04/24/18 08:15 167/91 04/24/18 08:00 97.1 F L 18 161/89 04/24/18 05:45 98.0 F 61 15 153/90 90 04/23/18 19:42 98.1 F 64 15 143/78 94 04/23/18 16:45 96.9 F L 61 18 180/84 93 04/23/18 16:30 97.4 F L 62 18 167/94 94 04/23/18 16:15 97.8 F 63 18 157/77 94 04/23/18 15:28 59 17 181/68 100 04/23/18 15:22 60 14 170/89 100 04/23/18 14:00 97.7 F 68 18 178/82 97 04/23/18 10:49 98.0 F 51 18 151/74 96 Intake and Output 04/23/18 04/24/18 04/24/18 23:59 07:59 15:59 Intake Total 240 / 240 0 / 0 600 / 600 Output Total 600 / 600 Balance 240 / 240 -600 / -600 600 / 600 Intake: Oral 240 / 240 0 / 0 0 / 0 Intake, Rinseback and Flushes 600 / 600 Output: Catheter 600 / 600 Other: Meal Dinner Percent of Meal Consumed 75% Stool Size Moderate Stool Consistency soft Stool Color Brown # Bowel Movements 1 Weight 182.7 kg Blood Glucose* 230 Hemodialysis Net Fluid Removed 902 (mL) Patient Weight 04/24/18 23:59 Weight 182.7 kg - General Appearance Exam: General appearance: Present: well-developed, well-nourished, appears started age , obese EENT: Present: ATNC, PERRL, mucous membranes moist Neck: Present: thick and muscular neck Respiratory: Present: clear Cardiology: Present: edema, normal S1, normal S2 Dialysis Vascular Access: Right tunneled HD catheter with dressing C/D/I Gastrointestinal: Present: no tenderness, no guarding, obese Additional Comments: Wound dressing was noted Musculoskeletal: Present: no cyanosis, no clubbing Psychiatric: Present: mood/affect appropriate, cooperative - Lab 04/25/18 09:43 04/27/18 06:22 Most recent lab results Calcium 8.9 mg/dL (8.6-10.3) 04/24/18 03:35 Phosphorus 5.3 mg/dL (2.7-4.5) H 04/12/18 08:56 Magnesium 1.8 mg/dL (1.6-2.6) 04/12/18 08:56 Urine Creatinine 140 mg/dL 04/11/18 14:50 Urine Sodium 35.9 mEq/L 04/11/18 14:50 Urine Total Protein 184 mg/dL (1-14) H 04/11/18 14:50 - VTE Documentation of Mechanical Device: Intermittent pneumatic compression device Consult Discharge Plan - Plan Instructions: Diabetes Mellitus Type 2 in Adults (DC), Chronic Hypertension (DC ) Referrals: Russell Mercer DPM [Partnered Physician] - (In wound care clinic in 1 week after discharge) Agueda Rahman GIFT SHOP CLERK [Advanced Practice Nurse] - 05/09/18 8:40 am Prescriptions: cefTRIAXone [Rocephin] 2,000 mg IVPB DAILY #32 vial Gabapentin [Neurontin] 100 mg PO BID #20 capsule Lisinopril [Zestril] 5 mg PO DAILY #30 tablet Tramadol HCl [Ultram] 50 mg PO QID PRN 5 Days #20 tablet PRN Reason: Mild Pain
--- NOTE | 2018-04-24 11:11 | Infectious Disease Progress No ---
Date of Encounter: 04/24/18 Time of Encounter: 11:09 - Assessment and Plan (1) Sepsis Current Visit: Yes Status: Resolved The patient had two SIRS criteria on admission. Likely secondary to right foot infection and OM. Resolved. Afebrile. WBC normalized. Blood cultures drawn 04/08/18 are negative x 2 sets. Qualifiers: Sepsis type: sepsis due to unspecified organism Qualified Code(s): A41.9 - Sepsis, unspecified organism (2) Osteomyelitis Current Visit: Yes Status: Acute Causative organism: GCS and MSSA. Location: Right foot talus and navicularis. Likely secondary to right foot DFU. X-ray of the right foot completed 04/08/18 showed bony erosion of the talus and navicularis. ESR 106, CRP >300. Podiatry consulted and following. Status post I&D of the right ankle/foot, removal of hardware, and bone biopsy. Operative note was reviewed. Purulence noted Intra-Op adjacent to the hardware. Intraoperative cultures are positive for MSSA. Pathology positive for OM of the talus bone. Status post partial closure with wound VAC placement at the bedside on Sunday by Dr. Mercer. Wound care and activity restrictions as outlined by the podiatry team. Continue Rocephin 2 grams IV daily (day 14). Duration of treatment depends on the clinical picture, but likely 6 weeks of IV antibiotics. Continue to monitor renal function. Will need weekly CBC, BUN/Cr, ESR, CRP. Will need weekly IV care. Follow up with ID 05/09/18 at 0840. Qualifiers: Osteomyelitis type: other Osteomyelitis location: foot Laterality: right Qualified Code(s): M86.8X7 - Other osteomyelitis, ankle and foot (3) Abscess of right foot Current Visit: Yes Status: Acute Location: Right foot. Causative organism: GCS and MSSA. Status post I & D 04/09/[address] Mercer. Antibiotics as above. (4) YESENIA (acute kidney injury) Current Visit: Yes Status: Acute YESENIA on CKD. Urine output improved. Etiology unclear, but likely multifactorial: hypotension post-op, Vancomycin, dehydration Continue to trend. Nephrology consulted and following. HD initiated 04/13/18. RP UTS negative. Avoid additional nephrotoxins. Dose-adjust antibiotics as needed. (5) Diabetic foot ulcer Current Visit: Yes Status: Acute Etiology unclear. Podiatry consulted and following. Qualifiers: Diabetic foot ulcer location: heel Diabetes mellitus type: type 2 Laterality: right Non-pressure ulcer stage: unspecified non-pressure ulcer stage Qualified Code(s): E11.621 - Type 2 diabetes mellitus with foot ulcer; L97.419 - Non-pressure chronic ulcer of right heel and midfoot with unspecified severity (6) Charcot foot due to diabetes mellitus Current Visit: No Status: Acute Status post reconstruction 10/[address] Mercer. (7) HTN (hypertension) Current Visit: Yes Status: Chronic Qualifiers: Hypertension type: essential hypertension Qualified Code(s): I10 - Essential (primary) hypertension (8) DM2 (diabetes mellitus, type 2) Current Visit: Yes Status: Chronic Uncontrolled. HgbA1C 9.4%. Recommend aggressive glucose monitoring and control to promote wound healing and prevent re-infection. Management per the primary team. Qualifiers: Diabetes mellitus longwall foreman insulin use: with fci use Diabetes mellitus complication status: with hyperosmolarity Diabetes mellitus complication detail: without coma Qualified Code(s): E11.00 - Type 2 diabetes mellitus with hyperosmolarity without nonketotic hyperglycemic-hyperosmolar coma (NKHHC); Z79.4 - intermodal dispatcher (current) use of insulin (9) NEHEMIAH (obstructive sleep apnea) Current Visit: No Status: Resolved (10) Morbid obesity with BMI of 50.0-59.9, adult Current Visit: No Status: Acute - Subjective Interval history: Patient seen and examined. No acute events noted overnight. Status post temporary dialysis catheter placement with HD initiation on 04/13/18. Had Perma- cath placed 04/23/18. Status post I & D of the right ankle with removal of hardware and bone biopsy 04/09/18 and bedside wound closure with wound VAC placement on 04/19/[address] Mercer. He states overall he feels okay. Denies fevers, chills, or rigors. He denies chest pain, shortness of breath, or cough. Denies nausea, vomiting, diarrhea, or constipation. Denies abdominal pain or appetite changes. Denies oral thrush or skin lesions. Denies pain at surgical site. Infect Dis PN-Objective Data - Labs CBC & Chem 7: 04/24/18 03:35 04/24/18 03:35 Labs: Laboratory Results - last 24 hr 04/23/18 04/23/18 04/23/18 05:27 11:45 16:47 WBC RBC Hgb Hct MCV MCH MCHC RDW Plt Count MPV Immature Gran % Seg Neutrophils % Lymphocytes % Monocytes % Eosinophils % Basophils % Neutrophils # Lymphocytes # Monocytes # Eosinophils # Basophils # Sodium Potassium Chloride Carbon Dioxide BUN Creatinine Est GFR ( Amer) Est GFR (Non-Af Amer) BUN/Creatinine Ratio Glucose POC Glucose 166 H 130 H 142 H Calculated Osmolality Calcium 04/23/18 04/24/18 04/24/18 20:33 03:35 03:35 WBC 6.3 RBC 2.99 L Hgb 8.3 L Hct 25.7 L MCV 86.0 MCH 27.8 L MCHC 32.3 RDW 14.1 Plt Count 298 MPV 8.7 L Immature Gran % 0.5 Seg Neutrophils % 71.6 Lymphocytes % 17.0 Monocytes % 7.6 Eosinophils % 2.7 Basophils % 0.6 Neutrophils # 4.5 Lymphocytes # 1.1 Monocytes # 0.5 Eosinophils # 0.2 Basophils # 0.0 Sodium 137 Potassium 4.7 Chloride 101 Carbon Dioxide 27 BUN 41 H Creatinine 4.35 H Est GFR ( Amer) 18 L Est GFR (Non-Af Amer) 15 L BUN/Creatinine Ratio 9 Glucose 200 H POC Glucose 230 H Calculated Osmolality 300 Calcium 8.9 Cultures: Cultures 04/09/18 23:09 Anaerobic Culture - Final Right Foot No anaerobes were recovered. 04/08/18 14:48 Blood Culture - Final Peripheral Venipuncture No growth. 04/09/18 23:09 Wound Culture - Final Right Foot Staphylococcus aureus Serology 04/17/18 04/13/18 04/11/18 Range/Units 04:45 09:42 14:50 Urine Color (Yellow) Urine Clarity (Clear) Urine pH (5.0-8.0) pH Units Ur Specific [place] (1.010-1.025) Urine Protein (Neg-Trace) mg/dL Urine Glucose (UA) (Normal) mg/dL Urine Ketones (Negative) mg/dL Urine Blood (Negative) Urine Nitrite (Negative) Urine Bilirubin (Negative) Urine Urobilinogen (Normal) mg/dL Ur Leukocyte Esterase (Negative) Urine Microscopic RBC (0-3) per hpf Urine Microscopic WBC (0-3) per hpf Ur Eosinophil Smear 0 (None Seen) % Ur Squamous Epith Cells (None-Few) per lpf Amorphous Sediment (Few) Urine Bacteria (None-Few) per hpf Hyaline Casts (None-Few) per lpf Urine Yeast Ur Culture Indicated? (NO) Urine Creatinine 140 mg/dL Protein/Creatinin Ratio 1.31 H (0.00-0.20) mg/mg Urine Sodium 35.9 mEq/L Urine Total Protein 184 H (1-14) mg/dL Hep Bs Antigen Nonreactive (Nonreactive) Hep Bs Antibody 0.95 mIU/mL 04/11/18 Range/Units 14:50 Urine Color Yellow (Yellow) Urine Clarity Turbid A (Clear) Urine pH 5.5 (5.0-8.0) pH Units Ur Specific [place] 1.020 (1.010-1.025) Urine Protein 100 H (Neg-Trace) mg/dL Urine Glucose (UA) 100 H (Normal) mg/dL Urine Ketones Negative (Negative) mg/dL Urine Blood Large H (Negative) Urine Nitrite Negative (Negative) Urine Bilirubin Negative (Negative) Urine Urobilinogen Normal (Normal) mg/dL Ur Leukocyte Esterase Negative (Negative) Urine Microscopic RBC 5-15 H (0-3) per hpf Urine Microscopic WBC 30-50 H (0-3) per hpf Ur Eosinophil Smear (None Seen) % Ur Squamous Epith Cells Many H (None-Few) per lpf Amorphous Sediment Moderate H (Few) Urine Bacteria None Seen (None-Few) per hpf Hyaline Casts None Seen (None-Few) per lpf Urine Yeast Test Not Performed Ur Culture Indicated? NO (NO) Urine Creatinine mg/dL Protein/Creatinin Ratio (0.00-0.20) mg/mg Urine Sodium mEq/L Urine Total Protein (1-14) mg/dL Hep Bs Antigen (Nonreactive) Hep Bs Antibody mIU/mL - Impressions Impressions Guidance Ultrasound 04/23/18 00:00 IMPRESSION: Successful ultrasound and fluoroscopy guided Permacath placement. D/ / 04/23/2018 16:33:31 Barbara Savage MD / [place] Interpreting Provider: Barbara Savage MD Insertion Tunneled Catheter 04/23/18 00:00 IMPRESSION: Successful ultrasound and fluoroscopy guided Permacath placement. D/ / 04/23/2018 16:33:31 Barbara Savage MD / [place] Interpreting Provider: Barbara Savage MD Exam - Constitutional Vitals: Temp Pulse Resp BP Pulse Ox 97.1 F L 61 18 168/98 90 04/24/18 08:00 04/24/18 05:45 04/24/18 08:00 04/24/18 10:00 04/24/18 05:45 General appearance: cooperative, morbidly obese, no acute distress - Head Head exam: Present: atraumatic, normal inspection, normocephalic - Eye Eye exam: Present: EOMI, normal appearance, PERRL Pupils: Present: normal accommodation - ENT ENT exam: Present: mucous membranes moist - Neck Neck exam: Present: normal inspection - Respiratory Respiratory exam: Present: CTAB. Absent: rales, respiratory distress, rhonchi, wheezes - Cardiovascular Cardiovascular exam: Present: RRR, +S1, +S2 - GI/Abdominal GI/Abdominal exam: Present: distended (obese), normal bowel sounds, soft. Absent: tenderness - Extremities Exam Extremities exam: Absent: joint swelling, pedal edema, tenderness Additional comments: Right foot dressing with wound VAC C/D/I. No leak noted. Continuous suction at 125mm Hg. - Neurological Exam Neurological exam: Present: alert, oriented X3, no focal deficits - Psychiatric Psychiatric exam: Present: normal affect, normal mood - Skin Skin exam: Present: dry, intact, normal color, warm - VTE Documentation of Mechanical Device: Intermittent pneumatic compression device Consult Discharge Plan - Plan Instructions: Diabetes Mellitus Type 2 in Adults (DC), Chronic Hypertension (DC ) Referrals: Russell Mercer DPM [Partnered Physician] - (In wound care clinic in 1 week after discharge) Agueda Rahman, STOCK CHASER [Advanced Practice Nurse] - 05/09/18 8:40 am Prescriptions: cefTRIAXone [Rocephin] 2,000 mg IVPB DAILY #32 vial Gabapentin [Neurontin] 100 mg PO BID #20 capsule Tramadol HCl [Ultram] 50 mg PO QID PRN 5 Days #20 tablet PRN Reason: Mild Pain - Attending Attestation I examined this patient and my medical decision-making was reviewed with the Resident Physician. I agree with the documented findings, disposition and treatment plan as described except to the extent set forth below.
--- NOTE | 2018-04-24 12:26 | Discharge Summary ---
- NOTES TO OUTPATIENT PROVIDER Notes to Outpatient Provider: Patient admitted with right foot ulceration and wound infection with underlying osteomyelitis and sepsis. He was treated with IV antibiotics. Developed acute on chronic renal failure and is now requiring hemodialysis. He has a tunneled catheter placed for dialysis and will be discharged to skilled rehabilitation. He will also be discharged on IV Rocephin for osteomyelitis to complete 4-6 weeks treatment. He will follow up with infectious disease for further management. His wound culture is growing MSSA and group C streptococci. Orders not resulted at time of discharge: Pending orders 04/10/18 XR fluoroscopy <1 hr [XR] Routine Date of Encounter: 04/24/18 Time of Encounter: 12:14 - Discharge Diagnosis (1) Sepsis Priority: Primary Status: Resolved Qualifiers: Sepsis type: sepsis due to unspecified organism Qualified Code(s): A41.9 - Sepsis, unspecified organism (2) Acute on chronic renal failure Priority: Secondary Status: Acute Qualifiers: Acute renal failure type: with acute tubular necrosis Chronic kidney disease stage: on chronic dialysis Qualified Code(s): N17.0 - Acute kidney failure with tubular necrosis; N18.9 - Chronic kidney disease, unspecified; Z99.2 - Dependence on renal dialysis (3) Osteomyelitis Priority: Secondary Status: Acute Qualifiers: Osteomyelitis type: other Osteomyelitis location: foot Laterality: right Qualified Code(s): M86.8X7 - Other osteomyelitis, ankle and foot (4) HTN (hypertension) Priority: Secondary Status: Chronic Qualifiers: Hypertension type: essential hypertension Qualified Code(s): I10 - Essential (primary) hypertension (5) DM2 (diabetes mellitus, type 2) Priority: Secondary Status: Chronic Qualifiers: Diabetes mellitus terminal carman insulin use: with terminal carman use Diabetes mellitus complication status: with hyperosmolarity Diabetes mellitus complication detail: without coma Qualified Code(s): E11.00 - Type 2 diabetes mellitus with hyperosmolarity without nonketotic hyperglycemic-hyperosmolar coma ([facility]); Z79.4 - intermediate frame tender (current) use of insulin (6) DVT prophylaxis Priority: Secondary Status: Acute Hospital course: Mr. Bowen is a 47 year old male patient with history of chronic kidney disease , hypertension, diabetes, his right foot Charcot arthropathy who was hospitalized here with infection of his right foot ulcer. Patient had been evaluated with podiatry multiple times in the past. He was again seen by podiatry here was placed on antibiotics intravenously for wound infection and sepsis. He then underwent surgery with incision and drainage of right ankle/ foot and removal of right ankle/foot hardware along with bone biopsy of the talus and navicular bones. While patient was being treated for this, his renal function began to worsen. This was believed to be due to vancomycin-induced nephrotoxicity. Vancomycin was then held. However his renal function continued to worsen. As such a temporary dialysis catheter was placed and patient was started on hemodialysis. His renal function has not yet recovered and so he is now being transitioned to permanent hemodialysis. Outpatient dialysis is being arranged for the patient and patient will be discharged from the hospital once that arranged. He was evaluated by physical therapy and recommended placement to skilled rehabilitation. Patient does have a wound VAC in place in his right foot and also has a EP IV in place for long-term antibiotics. Wound cultures were positive for MSSA and group C strep streptococci both sensitive to Rocephin. Patient is therefore receiving Rocephin. Infectious disease recommended 6 weeks of IV antibiotics. Patient is on 2 g of Rocephin daily. He will follow up with infectious disease for an podiatry after discharge for further management of his foot wound. Discharge discussed with: patient, nurse, wardrobe consultant - Time Spent with Patient Total time spent providing and/or coordinating discharge services: Greater than 30 minutes (45 min) - Discharge Medications Prescriptions: cefTRIAXone [Rocephin] 2,000 mg IVPB DAILY #32 vial Gabapentin [Neurontin] 100 mg PO BID #20 capsule Tramadol HCl [Ultram] 50 mg PO QID PRN 5 Days #20 tablet PRN Reason: Mild Pain Home Medications: Cetirizine HCl [24Hour Allergy] 10 mg PO DAILY PRN 01/19/17 [History] Insulin Glargine [Lantus] 45 unit SQ BID 01/19/17 [History] ARIPiprazole [Abilify] 10 mg PO DAILY 07/27/17 [History] Buspirone HCl [Buspar] 30 mg PO BID 07/27/17 [History] Glimepiride [Amaryl] 4 mg PO DAILY 07/27/17 [History] PARoxetine HCl [Paroxetine HCl] 40 mg PO DAILY 07/27/17 [History] Allopurinol [Zyloprim 100 MG] 100 mg PO DAILY tablet 11/07/17 [Rx] Cyanocobalamin (B-12) [Vitamin B12] 1,000 mcg PO DAILY tablet 11/07/17 [Rx] Gabapentin [Neurontin] 400 mg PO TID 30 Days #90 capsule 11/07/17 [Rx] Ergocalciferol (VITAMIN D2) [Drisdol (50,000 Unit)] 50,000 unit PO TU 04/08/18 [ History] Insulin ASPART [Novolog Flexpen] 15 - 25 unit SQ TIDWM 04/08/18 [History] Metoprolol Succinate [Toprol Xl] 50 mg PO DAILY 04/08/18 [History] Tizanidine HCl [Zanaflex] 4 mg PO HS PRN 04/22/18 [History] Albuterol Neb [Proventil Neb] 2.5 mg IH [id number] PRN inhsol 04/24/18 [Rx] Gabapentin [Neurontin] 100 mg PO BID #20 capsule 04/24/18 [Rx] Tramadol HCl [Ultram] 50 mg PO QID PRN 5 Days #20 tablet 04/24/18 [Rx] amLODIPine [Norvasc] 10 mg PO DAILY tablet 04/24/18 [Rx] cefTRIAXone [Rocephin] 2,000 mg IVPB DAILY #32 vial 04/24/18 [Rx] Allergies/Adverse Reactions: 3 Allergy/AdvReac Type Severity Reaction Status Date / Time No Known Allergies Allergy Verified 11/02/17 10:48 Date of admission: 04/08/18 13:34 Primary care physician: Dolly Garcia CNP Consults: 04/08/18 13:39 Consult to Podiatry [CONS] Routine Consulting Provider: [facility] Reason for Consult: right foor hardware displacement Call Completed: Yes 04/08/18 13:40 Consult to Infectious Diseases [CONS] Routine Consulting Provider: Infectious Disease [facility] Reason for Consult: possible right foot osteomyelitis Call Completed: No 04/10/18 07:41 Consult to Physical Therapy [CONS] Routine Comment: Evaluate, develop and implement POC Reason for Consult: s/p surgery for infection. right lower extremity non-wb Does patient have active BEDREST order?: No Is patient medically & hemodynamically stable?: Yes 04/11/18 09:34 Consult to Nephrology [CONS] Routine Consulting Provider: Moris Matthews Reason for Consult: Anuric YESENIA, ?Vancomycin related Time Notified: 09:36 Call Completed: Yes 04/12/18 14:21 Consult to Interventional Radiology [CONS] Stat Consulting Provider: Radiology Interventional Cols Reason for Consult: Please place temporary dialysis catheter. Thanks Time Notified: 14:21 Call Completed: No 04/13/18 09:15 Consult to Dialysis [CONS] ONCE 04/15/18 08:15 Consult to Dialysis [CONS] ONCE 04/16/18 08:15 Consult to Dialysis [CONS] ONCE 04/18/18 07:45 Consult to Dialysis [CONS] ONCE 04/18/18 09:05 Consult to Invasive Line Access Team [CONS] Routine Reason for Consult: Rocephin x 6 weeks Line Type: EPIV PICC line indications: intermediate frame tender Med/Antibiotic Time Notified: 09:06 Call Completed: Yes 04/20/18 10:45 Consult to Dialysis [CONS] ONCE 04/22/18 06:37 Consult to Interventional Radiology [CONS] Routine Consulting Provider: Radiology Interventional Cols Reason for Consult: Please evaluate for Permacath placement tomorrow ( Sunday04/23/18). Thank you Call Completed: No 04/22/18 06:45 Consult to Dialysis [CONS] ONCE 04/22/18 08:30 Consult to Dialysis [CONS] ONCE 04/22/18 11:37 Consult to Daytime Caregiver [CONS] Routine Reason for SW Consult: please set up for chair time for outpatient dialysis. Thanks. 04/24/18 06:45 Consult to Dialysis [CONS] ONCE Discharging clinician: Nereyda Encinas Anticipated date of discharge: 04/25/18 - Constitutional Vitals: Temp Pulse Resp BP Pulse Ox 97.1 F L 61 18 165/86 90 04/24/18 08:00 04/24/18 05:45 04/24/18 08:00 04/24/18 12:00 04/24/18 05:45 General appearance: Present: A&O X 3, morbidly obese, no acute distress, answers questions appropriately - Cardiovascular Cardiovascular exam: Present: RRR, +S1, +S2. Absent: diastolic murmur, gallop, rubs, systolic murmur - GI/Abdominal GI/Abdominal exam: Present: normal bowel sounds, soft, no peritoneal signs. Absent: distended, tenderness - Extremities Exam Extremities exam: Present: warm, radial pulses palpable and symmetrical. Absent : calf tenderness, cyanotic, pedal edema Additional comments: Right foot bandage and wound VAC in place - Neurological Exam Neurological exam: Present: CN II-XII intact, oriented X3, no focal deficits. Absent: facial droop, speech deficit - Patient Status Disposition: Transfer SNF Condition: Fair Functional capacity at discharge: wheelchair bound Overall status at discharge: patient is progressing back to baseline - Discharge Instructions Instructions: Diabetes Mellitus Type 2 in Adults (DC), Chronic Hypertension (DC ) Follow Up With: Agueda Rahman, TRADE SPECIALIST [Advanced Practice Nurse] - 05/09/18 8:40 am Russell Mercer DPM [Partnered Physician] - (In wound care clinic in 1 week after discharge) - Diet and Activity Activity: as per physical therapy, increase activity as tolerated Diet: diabetic diet, low fat, low cholesterol, low salt diet - VTE Documentation of Mechanical Device: Intermittent pneumatic compression device
--- NOTE | 2018-04-24 12:38 | Physician Discharge Referral ---
ExtendedCare Referral Info Provider in Charge after Transfer: PCP Institutional Level of Care: Skilled - Diagnosis (1) Sepsis Priority: Primary Status: Resolved (2) Acute on chronic renal failure Priority: Secondary Status: Acute (3) Osteomyelitis Priority: Secondary Status: Acute (4) HTN (hypertension) Priority: Secondary Status: Chronic (5) DM2 (diabetes mellitus, type 2) Priority: Secondary Status: Chronic (6) DVT prophylaxis Priority: Secondary Status: Acute Prognosis: Fair Aware of Diagnosis: Patient Aware of Prognosis: Patient - Transfer Medications Prescriptions: cefTRIAXone [Rocephin] 2,000 mg IVPB DAILY #32 vial Gabapentin [Neurontin] 100 mg PO BID #20 capsule Tramadol HCl [Ultram] 50 mg PO QID PRN 5 Days #20 tablet PRN Reason: Mild Pain Home Medications: Cetirizine HCl [24Hour Allergy] 10 mg PO DAILY PRN 01/19/17 [History] Insulin Glargine [Lantus] 45 unit SQ BID 01/19/17 [History] ARIPiprazole [Abilify] 10 mg PO DAILY 07/27/17 [History] Buspirone HCl [Buspar] 30 mg PO BID 07/27/17 [History] Glimepiride [Amaryl] 4 mg PO DAILY 07/27/17 [History] PARoxetine HCl [Paroxetine HCl] 40 mg PO DAILY 07/27/17 [History] Allopurinol [Zyloprim 100 MG] 100 mg PO DAILY tablet 11/07/17 [Rx] Cyanocobalamin (B-12) [Vitamin B12] 1,000 mcg PO DAILY tablet 11/07/17 [Rx] Gabapentin [Neurontin] 400 mg PO TID 30 Days #90 capsule 11/07/17 [Rx] Ergocalciferol (VITAMIN D2) [Drisdol (50,000 Unit)] 50,000 unit PO TU 04/08/18 [ History] Insulin ASPART [Novolog Flexpen] 15 - 25 unit SQ TIDWM 04/08/18 [History] Metoprolol Succinate [Toprol Xl] 50 mg PO DAILY 04/08/18 [History] Tizanidine HCl [Zanaflex] 4 mg PO HS PRN 04/22/18 [History] Albuterol Neb [Proventil Neb] 2.5 mg IH [id number] PRN inhsol 04/24/18 [Rx] Gabapentin [Neurontin] 100 mg PO BID #20 capsule 04/24/18 [Rx] Tramadol HCl [Ultram] 50 mg PO QID PRN 5 Days #20 tablet 04/24/18 [Rx] amLODIPine [Norvasc] 10 mg PO DAILY tablet 04/24/18 [Rx] cefTRIAXone [Rocephin] 2,000 mg IVPB DAILY #32 vial 04/24/18 [Rx] Allergies/Adverse Reactions: 3 Allergy/AdvReac Type Severity Reaction Status Date / Time No Known Allergies Allergy Verified 11/02/17 10:48 - Respiratory Orders Smoking Cessation: Smoking cessation has been advised. For more information, call the [employer] Tobacco Quit Line at 7-105-TAHY-NOW. - Lab Orders Lab Orders: Other (include drug levels w/frequency) (CBC, basic panel, ESR, CRP weekly while patient is receiving IV Rocephin) - Ancillary Orders May consult with Dentist, Ballast Inspector, Life Manager PRN - Advance Directives Code Status: Full Code - Treatments List/Other: Wound vac care: Cleanse wound with mild soap and water, pat dry, please apply adaptic to wound bed prior to application of black sponge. - Diet Orders No Concentrated Sweets (diabetic), Cardiac CERTIFICATION: I certify that the transfer of the above named patient to an Extended Care Facility is necessary for the continuing treatment of the diagnosis listed. The above information is true and accurate reflection of patient's current condition. Confidential - Redisclosure prohibited without a patient's written consent.
[2018-04-24] MEDS: Insulin LISPRO 300 UNITS/3 ML VIAL SQ SCH ×3 (13:05→21:23)
[2018-04-24] MEDS: Acetaminophen 325 MG TABLET PO PRN (13:17)
[2018-04-24] MEDS: ARIPiprazole 10 MG TABLET PO SCH (13:18)
[2018-04-24] MEDS: Gabapentin 100 MG CAPSULE PO SCH ×2 (13:18→21:22)
[2018-04-24] MEDS: cefTRIAXone 2,000 MG in Water for inj. (sterile) 20 ML 20 ML IVP SCH (13:18)
[2018-04-24] MEDS: amLODIPine 5 MG TABLET PO SCH (13:18)
[2018-04-24] MEDS: Insulin DETEMIR 100 UNIT/ML X5UNITS SQ SCH ×2 (13:19→21:22)
[2018-04-24] MEDS: Cyanocobalamin (B-12) 1,000 MCG TABLET PO SCH (13:28)
[2018-04-24] MEDS: traMADol 50 MG TABLET PO PRN (16:46)
--- NOTE | 2018-04-24 17:47 | Podiatry Progress Note ---
Date of Encounter: 04/24/18 Time of Encounter: 17:00 - Assessment and Plan (1) Osteomyelitis Current Visit: Yes Status: Acute Chronic charcot s/p surgery in 2017. Developed abscess and infection prior to admission. s/p I&D and removal of hardware. Right lateral ankle was excisionally debrided removing fibrotic tissue on the plantar lateral aspect of the right foot/ankle on 04/19/18. No purulence expressed from the wound sites. 25 ml of serosanguineous drainage observed in canister. Microbiology 04/09/18 23:09 Right Foot Anaerobic Culture - Final No anaerobes were recovered. 04/08/18 11:49 Peripheral Venipuncture Blood Culture - Final No growth. 04/08/18 14:48 Peripheral Venipuncture Blood Culture - Final No growth. 04/09/18 23:09 Right Foot Wound Culture - Final Staphylococcus aureus 04/08/18 11:30 Right Foot Wound Culture - Final Group C Streptococcus Plan: Wound vac changed at bedside, irrigated wound with saline, pat dry applied adaptic, small black simplace wound vac sponge, connected to 125 mmhg low continuous suction. Change every M-W-F. Adaptic placed inside open wound. Allcare skin prep applied to macerated skin along surgical line. dry 4x4 applied along surgical line. Sealed down without leak Follow up with Dr. Mercer in the wound care center one week after discharge. IV abx per infectious disease. Non weight bearing to RLE. Qualifiers: Osteomyelitis type: other Osteomyelitis location: foot Laterality: right Qualified Code(s): M86.8X7 - Other osteomyelitis, ankle and foot (2) Charcot foot due to diabetes mellitus Current Visit: No Status: Acute Subjective Principal diagnosis: RLE swelling/bleeding Interval history: Post op patient resting comfortably in bed. Posterior splint, dressing and wound vac intact and running without issue. Patient denies any complications. States he should leave tomorrow. Patient denies any fevers, chills. n/v or flu like symptoms. Patient denies pain. Denies calf pain or sob. Objective - Vital Signs Vital Signs: Vital Signs Temp Pulse Resp BP Pulse Ox 04/24/18 15:51 98.8 F 65 14 153/85 92 04/24/18 12:27 97.8 F 75 18 140/83 93 04/24/18 12:15 98.3 F 18 179/94 04/24/18 12:00 165/86 04/24/18 11:45 156/88 04/24/18 11:30 144/88 04/24/18 11:15 159/87 04/24/18 11:00 159/87 04/24/18 10:45 163/95 04/24/18 10:30 170/94 04/24/18 10:15 183/97 04/24/18 10:00 168/98 04/24/18 09:45 154/100 04/24/18 09:30 162/93 04/24/18 09:15 179/90 04/24/18 09:00 164/84 04/24/18 08:45 160/88 04/24/18 08:30 161/90 04/24/18 08:15 167/91 04/24/18 08:00 97.1 F L 18 161/89 04/24/18 05:45 98.0 F 61 15 153/90 90 04/23/18 19:42 98.1 F 64 15 143/78 94 Intake and Output 04/24/18 04/24/18 04/24/18 07:59 15:59 23:59 Intake Total 0 / 0 600 / 600 Output Total 600 / 600 3500 / 3500 Balance -600 / -600 -2900 / -2900 Intake: Oral 0 / 0 0 / 0 Intake, Rinseback and Flushes 600 / 600 Output: Urine 0 / 0 Total Dialysis (HD) Output 3100 / 3100 Catheter 600 / 600 400 / 400 Other: Meal Lunch Percent of Meal Consumed 75% Weight 182.7 kg Blood Glucose* 118 177 Hemodialysis Net Fluid Removed 2500 (mL) Patient Weight 04/24/18 23:59 Weight 182.7 kg - Exam Exam: General appearance: alert awake oriented X 3. Calm and pleasant, no acute distress.. Vascular: No evidence of cyanosis, pallor or rubor, Edema graded at 1+/4, Skin Tempature warm, No calf pain with manual compression. capillary refill time is immediate to digits. Neurologic: Sensation absent to light or moderate touch to foot. Postop Exam: S/P Open wound to the right lateral ankle measuring 5 cm in length x 1 cm x 3 cm in depth. Ligament exposed, adaptic applied to exposed area prior to vac application. No probe to bone, no fluctuance. Wound edges are macerated. Sutures intact to incision lines. No erythema, no pus, no odor, no cellulitis. 25 mls of serosanguineous drainage. - Lab Result Diagrams: 04/24/18 03:35 04/24/18 03:35 Labs: Abnormal lab results RBC 2.99 M/mcL (4.19-5.50) L 04/24/18 03:35 Hgb 8.3 g/dL (12.9-16.9) L 04/24/18 03:35 Hct 25.7 % (37.5-50.1) L 04/24/18 03:35 MCH 27.8 pg (28.0-33.3) L 04/24/18 03:35 MPV 8.7 fL (9.4-12.4) L 04/24/18 03:35 Metamyelocytes % 2.0 % (0) H 04/11/18 08:13 Nucleated RBCs/100 WBC 0.3 /100 WBC (0) H 04/21/18 07:09 Platelet Estimate Slight increase (Normal) H 04/16/18 06:26 ESR 106 mm/hr (0-10) H 04/08/18 18:00 PT 12.8 Seconds (9.4-12.1) H 04/08/18 11:37 BUN 41 mg/dL (6-20) H 04/24/18 03:35 Creatinine 4.35 mg/dL (0.70-1.30) H 04/24/18 03:35 Est GFR ( Amer) 18 (> 60) L 04/24/18 03:35 Est GFR (Non-Af Amer) 15 (> 60) L 04/24/18 03:35 Glucose 200 mg/dL (70-105) H 04/24/18 03:35 POC Glucose 177 mg/dL (70-99) H 04/24/18 16:33 Hemoglobin A1c 9.4 % (-5.6) H 04/09/18 06:56 Phosphorus 5.3 mg/dL (2.7-4.5) H 04/12/18 08:56 Creatine Kinase 277 Units/L (30-223) H 04/13/18 15:02 C-Reactive Protein > 300 mg/L (Less than 10) H 04/08/18 18:00 Urine Clarity Turbid (Clear) A 04/11/18 14:50 Urine Protein 100 mg/dL (Neg-Trace) H 04/11/18 14:50 Urine Glucose (UA) 100 mg/dL (Normal) H 04/11/18 14:50 Urine Blood Large (Negative) H 04/11/18 14:50 Urine Microscopic RBC 5-15 per hpf (0-3) H 04/11/18 14:50 Urine Microscopic WBC 30-50 per hpf (0-3) H 04/11/18 14:50 Ur Squamous Epith Cells Many per lpf (None-Few) H 04/11/18 14:50 Amorphous Sediment Moderate (Few) H 04/11/18 14:50 Protein/Creatinin Ratio 1.31 mg/mg (0.00-0.20) H 04/11/18 14:50 Urine Total Protein 184 mg/dL (1-14) H 04/11/18 14:50 Vancomycin Trough 30 mcg/mL (5-10) H 04/10/18 12:44 - VTE Documentation of Mechanical Device: Intermittent pneumatic compression device Consult Discharge Plan - Plan Instructions: Diabetes Mellitus Type 2 in Adults (DC), Chronic Hypertension (DC ) Referrals: Russell Mercer DPM [Partnered Physician] - (In wound care clinic in 1 week after discharge) Agueda Rahman, ALMOND BLANCHER [Advanced Practice Nurse] - 05/09/18 8:40 am Prescriptions: cefTRIAXone [Rocephin] 2,000 mg IVPB DAILY #32 vial Gabapentin [Neurontin] 100 mg PO BID #20 capsule Tramadol HCl [Ultram] 50 mg PO QID PRN 5 Days #20 tablet PRN Reason: Mild Pain
[2018-04-24] MEDS: tiZANidine 4 MG TABLET PO SCH (21:22)
[2018-04-25] MEDS: cefTRIAXone 2,000 MG in Water for inj. (sterile) 20 ML 20 ML IVP SCH (08:38)
[2018-04-25] MEDS: Cyanocobalamin (B-12) 1,000 MCG TABLET PO SCH (08:41)
[2018-04-25] MEDS: ARIPiprazole 10 MG TABLET PO SCH (08:41)
[2018-04-25] MEDS: amLODIPine 5 MG TABLET PO SCH (08:42)
[2018-04-25] MEDS: Gabapentin 100 MG CAPSULE PO SCH ×2 (08:44→21:47)
[2018-04-25] MEDS: Insulin LISPRO 300 UNITS/3 ML VIAL SQ SCH ×4 (08:44→21:48)
[2018-04-25] MEDS: Insulin DETEMIR 100 UNIT/ML X5UNITS SQ SCH ×2 (08:49→22:24)
--- NOTE | 2018-04-25 08:58 | Internal Med Progress Note ---
Date of Encounter: 04/25/18 Time of Encounter: 08:30 - Assessment and plan (1) Sepsis Current Visit: Yes Status: Resolved Assessment and plan: Due to MSSA and group C streptococci. On Rocephin. (2) Acute on chronic renal failure Current Visit: Yes Status: Acute Assessment and plan: On hemodialysis. Awaiting dialysis chair. Patient will be discharged when he has dialysis scheduled available. Qualifiers: Acute renal failure type: with acute tubular necrosis Chronic kidney disease stage: on chronic dialysis Qualified Code(s): N17.0 - Acute kidney failure with tubular necrosis; N18.9 - Chronic kidney disease, unspecified; Z99.2 - Dependence on renal dialysis (3) Osteomyelitis Current Visit: Yes Status: Acute Assessment and plan: On IV Rocephin. Plan for 6 weeks of IV antibiotics. Follow up with infectious disease after discharge (4) HTN (hypertension) Current Visit: Yes Status: Chronic (5) DM2 (diabetes mellitus, type 2) Current Visit: Yes Status: Chronic Assessment and plan: Blood sugars slightly elevated. Will increase sliding scale coverage. (6) DVT prophylaxis Current Visit: Yes Status: Acute Assessment and plan: Continue subcutaneous heparin - Time Spent With Patient Total time spent is greater than 50% in coordination of care (as documented) at patient's floor/unit and/or counseling patient: - Subjective Interval history: No new complaints at this time. Just waking up. Awaiting dialysis chair at this time. No acute issues overnight. Wound VAC in place. Pain controlled. - Constitutional Vitals: Temp Pulse Resp BP Pulse Ox 98.1 F 60 14 141/78 92 04/25/18 06:56 04/25/18 06:56 04/25/18 06:56 04/25/18 06:56 04/25/18 06:56 General appearance: Present: A&O X 3, morbidly obese, no acute distress, answers questions appropriately - Respiratory Respiratory exam: Present: CTAB. Absent: accessory muscle use, rales, rhonchi, wheezes - Cardiovascular Cardiovascular exam: Present: RRR, +S1, +S2. Absent: diastolic murmur, gallop, rubs, systolic murmur - GI/Abdominal GI/Abdominal exam: Present: normal bowel sounds, soft, no peritoneal signs. Absent: distended, tenderness - Extremities Exam Extremities exam: Present: warm, radial pulses palpable and symmetrical. Absent : calf tenderness, cyanotic, pedal edema Additional comments: Wound VAC in place over right foot Internal Medicine: Result - Labs CBC & Chem 7: 04/24/18 03:35 04/24/18 03:35 - ABG Interpretation ABG results: PT/INR, D-dimer PT 12.8 Seconds (9.4-12.1) H 04/08/18 11:37 - Impressions Impressions Guidance Ultrasound 04/23/18 00:00 IMPRESSION: Successful ultrasound and fluoroscopy guided Permacath placement. D/ / 04/23/2018 16:33:31 Barbara Savage MD / [place] Interpreting Provider: Barbara Savage MD Insertion Tunneled Catheter 04/23/18 00:00 IMPRESSION: Successful ultrasound and fluoroscopy guided Permacath placement. D/ / 04/23/2018 16:33:31 Barbara Savage MD / [place] Interpreting Provider: Barbara Savage MD - VTE Documentation of Mechanical Device: Intermittent pneumatic compression device Consult Discharge Plan - Plan Instructions: Diabetes Mellitus Type 2 in Adults (DC), Chronic Hypertension (DC ) Referrals: Russell Mercer DPM [Partnered Physician] - (In wound care clinic in 1 week after discharge) Agueda Rahman, TELEPRINTER INSTALLER [Advanced Practice Nurse] - 05/09/18 8:40 am Prescriptions: cefTRIAXone [Rocephin] 2,000 mg IVPB DAILY #32 vial Gabapentin [Neurontin] 100 mg PO BID #20 capsule Tramadol HCl [Ultram] 50 mg PO QID PRN 5 Days #20 tablet PRN Reason: Mild Pain
--- NOTE | 2018-04-25 09:36 | Nephrology Progress Note ---
Date of Encounter: 04/25/18 Time of Encounter: 09:29 - Assessment and Plan (1) YESENIA (acute kidney injury) Current Visit: Yes Status: Acute Last HD tx 04/24/18. Will continue to watch for signs of renal recovery. Continue to avoid nephrotoxins and renal dose all medications. UOP 1200 yesterday. Strict I/O. Scr 4.35 Gfr 15. [employer] working on chair time in [place]. Please d/c durham cath. (2) Abscess of right foot Current Visit: Yes Status: Acute Per podiatry. Wound Vac in place. (3) Diabetic foot ulcer Current Visit: Yes Status: Acute See above. Qualifiers: Diabetic foot ulcer location: heel Diabetes mellitus type: type 2 Laterality: right Non-pressure ulcer stage: unspecified non-pressure ulcer stage Qualified Code(s): E11.621 - Type 2 diabetes mellitus with foot ulcer; L97.419 - Non-pressure chronic ulcer of right heel and midfoot with unspecified severity (4) Hyponatremia syndrome Current Visit: Yes Status: Acute Resolved. Subjective Principal diagnosis: RLE swelling/bleeding Interval history: Pt seen and examined doing well. No c/o of nausea/vomiting/diarrhea. Objective - Vital Signs Vital signs: Vital Signs Temp Pulse Resp BP Pulse Ox 04/25/18 06:56 98.1 F 60 14 141/78 92 04/25/18 04:37 98.1 F 56 18 151/80 93 04/24/18 20:17 98.3 F 56 18 125/78 94 04/24/18 15:51 98.8 F 65 14 153/85 92 04/24/18 12:27 97.8 F 75 18 140/83 93 04/24/18 12:15 98.3 F 18 179/94 04/24/18 12:00 165/86 04/24/18 11:45 156/88 04/24/18 11:30 144/88 04/24/18 11:15 159/87 04/24/18 11:00 159/87 04/24/18 10:45 163/95 04/24/18 10:30 170/94 04/24/18 10:15 183/97 04/24/18 10:00 168/98 04/24/18 09:45 154/100 04/24/18 09:30 162/93 Intake and Output 04/24/18 04/25/18 04/25/18 23:59 07:59 15:59 Intake Total 0 / 0 120 / 120 Output Total 200 / 200 150 / 150 Balance -180 / -180 -150 / -150 120 / 120 Intake: IV Fluids Rocephin 2,000 MG In Water for 20 20 inj. (sterile) 20 ML @ 600 mls/ hr IVP DAILY [facility] Rx#:[id number] Oral 0 / 0 0 / 0 120 / 120 Output: Catheter 200 / 200 150 / 150 Other: Meal Dinner Breakfast Percent of Meal Consumed 100% 100% Weight 183.4 kg Blood Glucose* 215 176 Patient Weight 04/25/18 23:59 Weight 183.4 kg - General Appearance General appearance: Present: well-developed, well-nourished EENT: Present: ATNC, hearing intact, vision intact Neck: Present: supple Respiratory: Present: clear Cardiology: Present: no edema, normal S1, normal S2 Dialysis Vascular Access: Venous Catheter (Tunneled Line, DRSG C/D/I.) Gastrointestinal: Present: normoactive bowel sounds, no tenderness, no guarding Integumentary: Present: no rash, warm and dry Neurologic: Present: alert and oriented x3 Psychiatric: Present: mood/affect appropriate, cooperative - Lab 04/25/18 09:43 04/25/18 09:43 Most recent lab results Calcium 8.9 mg/dL (8.6-10.3) 04/24/18 03:35 Phosphorus 5.3 mg/dL (2.7-4.5) H 04/12/18 08:56 Magnesium 1.8 mg/dL (1.6-2.6) 04/12/18 08:56 Urine Creatinine 140 mg/dL 04/11/18 14:50 Urine Sodium 35.9 mEq/L 04/11/18 14:50 Urine Total Protein 184 mg/dL (1-14) H 04/11/18 14:50 - VTE Documentation of Mechanical Device: Intermittent pneumatic compression device Consult Discharge Plan - Plan Instructions: Diabetes Mellitus Type 2 in Adults (DC), Chronic Hypertension (DC ) Referrals: Russell Mercer DPM [Partnered Physician] - (In wound care clinic in 1 week after discharge) Agueda Rahman, PRACTICE LEAD [Advanced Practice Nurse] - 05/09/18 8:40 am Prescriptions: cefTRIAXone [Rocephin] 2,000 mg IVPB DAILY #32 vial Gabapentin [Neurontin] 100 mg PO BID #20 capsule Tramadol HCl [Ultram] 50 mg PO QID PRN 5 Days #20 tablet PRN Reason: Mild Pain
[2018-04-25 10:14] LABS: Basophils % 0.7 %; Eosinophils # 0.2 K/mcL (0.0-0.6); Eosinophils % 3.1 %; Hematocrit 28.8 % (37.5-50.1); Hemoglobin 9.2 g/dL (12.9-16.9); Immature Granulocytes % 0.8 % (0-4); Lymphocytes # 1.1 K/mcL (0.6-4.6); Lymphocytes % 18.5 %; Mean Corpuscular HGB Conc 31.9 g/dL (31.6-35.5); Mean Corpuscular Hemoglobin 27.7 pg (28.0-33.3); Mean Corpuscular Volume 86.7 fL (83.0-100.0); Mean Platelet Volume 9.2 fL (9.4-12.4); Monocytes # 0.5 K/mcL (0.0-1.3); Monocytes % 7.6 %; Neutrophils # 4.2 K/mcL (1.6-8.9); Platelet Count 254 K/mcL (140-400); Red Blood Count 3.32 M/mcL (4.19-5.50); Segmented Neutrophils % 69.3 %
[2018-04-25 10:33] LABS: Calcium 9.3 mg/dL (8.6-10.3); Potassium 4.4 mEq/L (3.5-5.1)
--- NOTE | 2018-04-25 16:57 | Infectious Disease Progress No ---
Date of Encounter: 04/25/18 Time of Encounter: 16:56 - Assessment and Plan (1) Sepsis Current Visit: Yes Status: Resolved The patient had two SIRS criteria on admission. Likely secondary to right foot infection and OM. Resolved. Afebrile. WBC normalized. Blood cultures drawn 04/08/18 are negative x 2 sets. Qualifiers: Sepsis type: sepsis due to unspecified organism Qualified Code(s): A41.9 - Sepsis, unspecified organism (2) Osteomyelitis Current Visit: Yes Status: Acute Causative organism: GCS and MSSA. Location: Right foot talus and navicularis. Likely secondary to right foot DFU. X-ray of the right foot completed 04/08/18 showed bony erosion of the talus and navicularis. ESR 106, CRP >300. Podiatry consulted and following. Status post I&D of the right ankle/foot, removal of hardware, and bone biopsy. Operative note was reviewed. Purulence noted Intra-Op adjacent to the hardware. Intraoperative cultures are positive for MSSA. Pathology positive for OM of the talus bone. Status post partial closure with wound VAC placement at the bedside on Sunday by Dr. Mercer. Wound care and activity restrictions as outlined by the podiatry team. Continue Rocephin 2 grams IV daily (day 14). Duration of treatment depends on the clinical picture, but likely 6 weeks of IV antibiotics. Continue to monitor renal function. Will need weekly CBC, BUN/Cr, ESR, CRP. Will need weekly IV care. Follow up with ID 05/09/18 at 0840. Qualifiers: Osteomyelitis type: other Osteomyelitis location: foot Laterality: right Qualified Code(s): M86.8X7 - Other osteomyelitis, ankle and foot (3) Abscess of right foot Current Visit: Yes Status: Acute Location: Right foot. Causative organism: GCS and MSSA. Status post I & D 04/09/[address] Mercer. Antibiotics as above. (4) YESENIA (acute kidney injury) Current Visit: Yes Status: Acute YESENIA on CKD. Urine output improved. Etiology unclear, but likely multifactorial: hypotension post-op, Vancomycin, dehydration Continue to trend. Nephrology consulted and following. HD initiated 04/13/18. RP UTS negative. Avoid additional nephrotoxins. Dose-adjust antibiotics as needed. (5) Diabetic foot ulcer Current Visit: Yes Status: Acute Etiology unclear. Podiatry consulted and following. Qualifiers: Diabetic foot ulcer location: heel Diabetes mellitus type: type 2 Laterality: right Non-pressure ulcer stage: unspecified non-pressure ulcer stage Qualified Code(s): E11.621 - Type 2 diabetes mellitus with foot ulcer; L97.419 - Non-pressure chronic ulcer of right heel and midfoot with unspecified severity (6) Charcot foot due to diabetes mellitus Current Visit: No Status: Acute Status post reconstruction 10/[address] Mercer. (7) HTN (hypertension) Current Visit: Yes Status: Chronic Qualifiers: Hypertension type: essential hypertension Qualified Code(s): I10 - Essential (primary) hypertension (8) DM2 (diabetes mellitus, type 2) Current Visit: Yes Status: Chronic Uncontrolled. HgbA1C 9.4%. Recommend aggressive glucose monitoring and control to promote wound healing and prevent re-infection. Management per the primary team. Qualifiers: Diabetes mellitus model maker firearms insulin use: with model maker firearms use Diabetes mellitus complication status: with hyperosmolarity Diabetes mellitus complication detail: without coma Qualified Code(s): E11.00 - Type 2 diabetes mellitus with hyperosmolarity without nonketotic hyperglycemic-hyperosmolar coma (NKHHC); Z79.4 - [facility] (current) use of insulin (9) NEHEMIAH (obstructive sleep apnea) Current Visit: No Status: Resolved (10) Morbid obesity with BMI of 50.0-59.9, adult Current Visit: No Status: Acute - Subjective Interval history: Patient seen and examined. Doing great clinically. No complaints. Gets dialyzed tomorrow. Still having good urine output. No chest pain no shortness of breath no diarrhea. No headache. Reason patient has not been discharged is just social media executive trying to place him. Probably will get discharged tomorrow Shelly. Infect Dis PN-Objective Data - Labs CBC & Chem 7: 04/25/18 09:43 04/25/18 09:43 Labs: Laboratory Results - last 24 hr 04/24/18 04/25/18 04/25/18 10:20 09:43 09:43 WBC 6.1 RBC 3.32 L Hgb 9.2 L Hct 28.8 L MCV 86.7 MCH 27.7 L MCHC 31.9 RDW 14.0 Plt Count 254 MPV 9.2 L Immature Gran % 0.8 Seg Neutrophils % 69.3 Lymphocytes % 18.5 Monocytes % 7.6 Eosinophils % 3.1 Basophils % 0.7 Neutrophils # 4.2 Lymphocytes # 1.1 Monocytes # 0.5 Eosinophils # 0.2 Basophils # 0.0 Sodium 137 Potassium 4.4 Chloride 99 Carbon Dioxide 27 BUN 34 H Creatinine 3.97 H Est GFR ( Amer) 20 L Est GFR (Non-Af Amer) 16 L BUN/Creatinine Ratio 9 Glucose 187 H POC Glucose 105 H Calculated Osmolality 297 Calcium 9.3 Cultures: Cultures 04/09/18 23:09 Anaerobic Culture - Final Right Foot No anaerobes were recovered. 04/08/18 14:48 Blood Culture - Final Peripheral Venipuncture No growth. 04/09/18 23:09 Wound Culture - Final Right Foot Staphylococcus aureus Serology 04/17/18 04/13/18 04/11/18 Range/Units 04:45 09:42 14:50 Urine Color (Yellow) Urine Clarity (Clear) Urine pH (5.0-8.0) pH Units Ur Specific [place] (1.010-1.025) Urine Protein (Neg-Trace) mg/dL Urine Glucose (UA) (Normal) mg/dL Urine Ketones (Negative) mg/dL Urine Blood (Negative) Urine Nitrite (Negative) Urine Bilirubin (Negative) Urine Urobilinogen (Normal) mg/dL Ur Leukocyte Esterase (Negative) Urine Microscopic RBC (0-3) per hpf Urine Microscopic WBC (0-3) per hpf Ur Eosinophil Smear 0 (None Seen) % Ur Squamous Epith Cells (None-Few) per lpf Amorphous Sediment (Few) Urine Bacteria (None-Few) per hpf Hyaline Casts (None-Few) per lpf Urine Yeast Ur Culture Indicated? (NO) Urine Creatinine 140 mg/dL Protein/Creatinin Ratio 1.31 H (0.00-0.20) mg/mg Urine Sodium 35.9 mEq/L Urine Total Protein 184 H (1-14) mg/dL Hep Bs Antigen Nonreactive (Nonreactive) Hep Bs Antibody 0.95 mIU/mL 04/11/18 Range/Units 14:50 Urine Color Yellow (Yellow) Urine Clarity Turbid A (Clear) Urine pH 5.5 (5.0-8.0) pH Units Ur Specific [place] 1.020 (1.010-1.025) Urine Protein 100 H (Neg-Trace) mg/dL Urine Glucose (UA) 100 H (Normal) mg/dL Urine Ketones Negative (Negative) mg/dL Urine Blood Large H (Negative) Urine Nitrite Negative (Negative) Urine Bilirubin Negative (Negative) Urine Urobilinogen Normal (Normal) mg/dL Ur Leukocyte Esterase Negative (Negative) Urine Microscopic RBC 5-15 H (0-3) per hpf Urine Microscopic WBC 30-50 H (0-3) per hpf Ur Eosinophil Smear (None Seen) % Ur Squamous Epith Cells Many H (None-Few) per lpf Amorphous Sediment Moderate H (Few) Urine Bacteria None Seen (None-Few) per hpf Hyaline Casts None Seen (None-Few) per lpf Urine Yeast Test Not Performed Ur Culture Indicated? NO (NO) Urine Creatinine mg/dL Protein/Creatinin Ratio (0.00-0.20) mg/mg Urine Sodium mEq/L Urine Total Protein (1-14) mg/dL Hep Bs Antigen (Nonreactive) Hep Bs Antibody mIU/mL Exam - Constitutional Vitals: Temp Pulse Resp BP Pulse Ox 98.2 F 57 14 127/77 95 04/25/18 15:29 04/25/18 15:29 04/25/18 15:29 04/25/18 15:29 04/25/18 15:29 General appearance: no acute distress, no febrile - Respiratory Respiratory exam: Present: CTAB. Absent: wheezes - Cardiovascular Cardiovascular exam: Present: RRR, +S1, +S2 Additional comments: Dialysis catheter right chest intact - Extremities Exam Additional comments: Rapid I did not unwrap it today but discuss with podiatry and the thought looks better - VTE Documentation of Mechanical Device: Intermittent pneumatic compression device Consult Discharge Plan - Plan Instructions: Diabetes Mellitus Type 2 in Adults (DC), Chronic Hypertension (DC ) Referrals: Russell Mercer DPM [Partnered Physician] - (In wound care clinic in 1 week after discharge) Agueda Rahman, POLICE SUPERINTENDENT [Advanced Practice Nurse] - 05/09/18 8:40 am Prescriptions: cefTRIAXone [Rocephin] 2,000 mg IVPB DAILY #32 vial Gabapentin [Neurontin] 100 mg PO BID #20 capsule Tramadol HCl [Ultram] 50 mg PO QID PRN 5 Days #20 tablet PRN Reason: Mild Pain
[2018-04-25] MEDS: tiZANidine 4 MG TABLET PO SCH (21:47)
[2018-04-26] MEDS ORDERED: 0.9 % Sodium Chloride 250 ML IVC PRN (06:46)
[2018-04-26] MEDS: Gabapentin 100 MG CAPSULE PO SCH ×2 (08:09→21:20)
[2018-04-26] MEDS: Cyanocobalamin (B-12) 1,000 MCG TABLET PO SCH (08:10)
[2018-04-26] MEDS: cefTRIAXone 2,000 MG in Water for inj. (sterile) 20 ML 20 ML IVP SCH (08:10)
[2018-04-26] MEDS: Insulin LISPRO 300 UNITS/3 ML VIAL SQ SCH ×4 (08:18→21:21)
[2018-04-26] MEDS: ARIPiprazole 10 MG TABLET PO SCH (08:23)
[2018-04-26] MEDS: Insulin DETEMIR 100 UNIT/ML X5UNITS SQ SCH ×2 (08:24→21:21)
[2018-04-26] MEDS ORDERED: *HR* Heparin 10,000 UNIT/10 ML VIAL IV PRN (09:40)
--- NOTE | 2018-04-26 11:16 | Internal Med Progress Note ---
Date of Encounter: 04/26/18 Time of Encounter: 09:00 - Assessment and plan (1) Sepsis Current Visit: Yes Status: Resolved Assessment and plan: Due to MSSA and GCS and from osteomyelitis involving the right foot. On IV Rocephin. (2) Acute on chronic renal failure Current Visit: Yes Status: Acute Assessment and plan: Continue hemodialysis per nephrology recommendations. Awaiting discharge pending Medicaid for dialysis chair as outpatient. Qualifiers: Acute renal failure type: with acute tubular necrosis Chronic kidney disease stage: on chronic dialysis Qualified Code(s): N17.0 - Acute kidney failure with tubular necrosis; N18.9 - Chronic kidney disease, unspecified; Z99.2 - Dependence on renal dialysis (3) Osteomyelitis Current Visit: Yes Status: Acute Assessment and plan: Involving the right foot. Continue current antibiotics. Continue antibiotics for total of 6 weeks (4) HTN (hypertension) Current Visit: Yes Status: Chronic Assessment and plan: Blood pressure is elevated today. Will place patient on lisinopril (5) DM2 (diabetes mellitus, type 2) Current Visit: Yes Status: Chronic Assessment and plan: Sugars remain uncontrolled but improved with change in insulin regimen yesterday. We will increase his long-acting insulin coverage. (6) DVT prophylaxis Current Visit: Yes Status: Acute Assessment and plan: On subcutaneous heparin - Time Spent With Patient Total time spent is greater than 50% in coordination of care (as documented) at patient's floor/unit and/or counseling patient: - Subjective Interval history: Patient continues to do well. Denies any pain. Awaiting dialysis chair. This is pending Medicaid. No other complaints at this time. - Constitutional Vitals: Temp Pulse Resp BP Pulse Ox 98.0 F 57 18 162/82 93 04/26/18 09:15 04/26/18 07:27 04/26/18 09:15 04/26/18 09:45 04/26/18 07:27 General appearance: Present: A&O X 3, morbidly obese, no acute distress, answers questions appropriately - Neck Neck exam general surgery: Present: supple, trachea midline. Absent: lymphadenopathy - Respiratory Respiratory exam: Present: CTAB. Absent: accessory muscle use, rales, rhonchi, wheezes - Cardiovascular Cardiovascular exam: Present: RRR, +S1, +S2. Absent: diastolic murmur, gallop, rubs, systolic murmur - GI/Abdominal GI/Abdominal exam: Present: normal bowel sounds, soft, no peritoneal signs. Absent: distended, tenderness - Extremities Exam Extremities exam: Present: warm, radial pulses palpable and symmetrical. Absent : calf tenderness, cyanotic, pedal edema Additional comments: Wound VAC in place on right foot. Currently bandaged - Skin Skin exam: Present: dry, intact Internal Medicine: Result - Labs CBC & Chem 7: 04/25/18 09:43 04/25/18 09:43 - ABG Interpretation ABG results: PT/INR, D-dimer PT 12.8 Seconds (9.4-12.1) H 04/08/18 11:37 - VTE Documentation of Mechanical Device: Intermittent pneumatic compression device Consult Discharge Plan - Plan Instructions: Diabetes Mellitus Type 2 in Adults (DC), Chronic Hypertension (DC ) Referrals: Russell Mercer DPM [Partnered Physician] - (In wound care clinic in 1 week after discharge) Agueda Rahman, DIGITAL MARKETING LEAD [Advanced Practice Nurse] - 05/09/18 8:40 am Prescriptions: cefTRIAXone [Rocephin] 2,000 mg IVPB DAILY #32 vial Gabapentin [Neurontin] 100 mg PO BID #20 capsule Tramadol HCl [Ultram] 50 mg PO QID PRN 5 Days #20 tablet PRN Reason: Mild Pain
[2018-04-26] MEDS ORDERED: 0.9 % Sodium Chloride 1,000 ML ONE (11:44)
[2018-04-26] MEDS: amLODIPine 5 MG TABLET PO SCH (14:38)
--- NOTE | 2018-04-26 15:14 | Nephrology Progress Note ---
Date of Encounter: 04/26/18 Time of Encounter: 12:00 - Assessment and Plan (1) YESENIA (acute kidney injury) Current Visit: Yes Status: Acute SCr noted at 3.97, GFR 16, continue HD today with UF as tolerated UOP noted at 650cc in the past 24hrs Continue to avoid nephrotoxins if possible Will d/c durham today, nurse informed with flomax started (2) Osteomyelitis Current Visit: Yes Status: Acute Per podiatry and primary team Qualifiers: Osteomyelitis type: other Osteomyelitis location: foot Laterality: right Qualified Code(s): M86.8X7 - Other osteomyelitis, ankle and foot (3) Sepsis Current Visit: Yes Status: Resolved ID on board Qualifiers: Sepsis type: sepsis due to unspecified organism Qualified Code(s): A41.9 - Sepsis, unspecified organism Subjective Principal diagnosis: RLE swelling/bleeding Interval history: Pt seen and examined on HD with no new complaints, interim event noted Objective - Vital Signs Vital signs: Vital Signs Temp Pulse Resp BP Pulse Ox 04/26/18 14:34 98 F 75 17 189/102 93 04/26/18 12:15 167/90 04/26/18 12:00 158/90 04/26/18 11:45 167/90 04/26/18 11:30 167/85 04/26/18 11:15 158/85 04/26/18 11:00 159/88 04/26/18 10:45 161/87 04/26/18 10:30 160/87 04/26/18 10:15 144/88 04/26/18 10:00 153/77 04/26/18 09:45 162/82 04/26/18 09:30 163/85 04/26/18 09:15 98.0 F 18 157/83 04/26/18 07:27 97.6 F 57 17 171/92 93 04/26/18 04:07 97.8 F 55 15 131/73 92 04/25/18 19:38 98.0 F 62 15 142/72 95 04/25/18 15:29 98.2 F 57 14 127/77 95 Intake and Output 04/25/18 04/26/18 04/26/18 23:59 07:59 15:59 Intake Total 0 / 0 120 / 120 1320 / 1320 Output Total 500 / 500 0 / 0 900 / 900 Balance -500 / -500 120 / 120 420 / 420 Intake: Oral 0 / 0 120 / 120 720 / 720 Intake, Rinseback and Flushes 600 / 600 Output: Urine 0 / 0 0 / 0 Catheter 500 / 500 900 / 900 Other: Meal Dinner Breakfast Percent of Meal Consumed 80% 100% Weight 183.6 kg 183.6 kg Blood Glucose* 211 172 152 Hemodialysis Net Fluid Removed 1233 (mL) Patient Weight 04/26/18 23:59 Weight 183.6 kg - General Appearance General appearance: Present: chronically ill (NAD) EENT: Present: ATNC, mucous membranes moist Neck: Present: no JVD, supple Respiratory: Present: clear Cardiology: Present: no edema, normal S1, normal S2 Dialysis Vascular Access: Venous Catheter (permcath) Gastrointestinal: Present: no tenderness, no guarding, obese Integumentary: Present: warm and dry Neurologic: Present: no focal deficit Musculoskeletal: Present: no deformities Psychiatric: Present: mood/affect appropriate, cooperative - Lab 04/25/18 09:43 04/27/18 06:22 Most recent lab results Calcium 9.3 mg/dL (8.6-10.3) 04/25/18 09:43 Phosphorus 5.3 mg/dL (2.7-4.5) H 04/12/18 08:56 Magnesium 1.8 mg/dL (1.6-2.6) 04/12/18 08:56 Urine Creatinine 140 mg/dL 04/11/18 14:50 Urine Sodium 35.9 mEq/L 04/11/18 14:50 Urine Total Protein 184 mg/dL (1-14) H 04/11/18 14:50 - VTE Documentation of Mechanical Device: Intermittent pneumatic compression device Consult Discharge Plan - Plan Instructions: Diabetes Mellitus Type 2 in Adults (DC), Chronic Hypertension (DC ) Referrals: Russell Mercer DPM [Partnered Physician] - (In wound care clinic in 1 week after discharge) Agueda Rahman, BEATER OPERATOR [Advanced Practice Nurse] - 05/09/18 8:40 am Prescriptions: cefTRIAXone [Rocephin] 2,000 mg IVPB DAILY #32 vial Gabapentin [Neurontin] 100 mg PO BID #20 capsule Lisinopril [Zestril] 5 mg PO DAILY #30 tablet Tramadol HCl [Ultram] 50 mg PO QID PRN 5 Days #20 tablet PRN Reason: Mild Pain
--- NOTE | 2018-04-26 16:45 | Infectious Disease Progress No ---
Date of Encounter: 04/26/18 Time of Encounter: 16:45 - Assessment and Plan (1) Sepsis Current Visit: Yes Status: Resolved The patient had two SIRS criteria on admission. Likely secondary to right foot infection and OM. Resolved. Afebrile. WBC normalized. Blood cultures drawn 04/08/18 are negative x 2 sets. Qualifiers: Sepsis type: sepsis due to unspecified organism Qualified Code(s): A41.9 - Sepsis, unspecified organism (2) Osteomyelitis Current Visit: Yes Status: Acute Causative organism: GCS and MSSA. Location: Right foot talus and navicularis. Likely secondary to right foot DFU. X-ray of the right foot completed 04/08/18 showed bony erosion of the talus and navicularis. ESR 106, CRP >300. Podiatry consulted and following. Status post I&D of the right ankle/foot, removal of hardware, and bone biopsy. Operative note was reviewed. Purulence noted Intra-Op adjacent to the hardware. Intraoperative cultures are positive for MSSA. Pathology positive for OM of the talus bone. Status post partial closure with wound VAC placement at the bedside on Sunday by Dr. Mercer. Wound care and activity restrictions as outlined by the podiatry team. Continue Rocephin 2 grams IV daily (day 14). Duration of treatment depends on the clinical picture, but likely 6 weeks of IV antibiotics. Continue to monitor renal function. Will need weekly CBC, BUN/Cr, ESR, CRP. Will need weekly IV care. Follow up with ID 05/09/18 at 0840. Qualifiers: Osteomyelitis type: other Osteomyelitis location: foot Laterality: right Qualified Code(s): M86.8X7 - Other osteomyelitis, ankle and foot (3) Abscess of right foot Current Visit: Yes Status: Acute Location: Right foot. Causative organism: GCS and MSSA. Status post I & D 04/09/[address] Mercer. Antibiotics as above. (4) YESENIA (acute kidney injury) Current Visit: Yes Status: Acute YESENIA on CKD. Urine output improved. Etiology unclear, but likely multifactorial: hypotension post-op, Vancomycin, dehydration Continue to trend. Nephrology consulted and following. HD initiated 04/13/18. RP UTS negative. Avoid additional nephrotoxins. Dose-adjust antibiotics as needed. (5) Diabetic foot ulcer Current Visit: Yes Status: Acute Etiology unclear. Podiatry consulted and following. Qualifiers: Diabetic foot ulcer location: heel Diabetes mellitus type: type 2 Laterality: right Non-pressure ulcer stage: unspecified non-pressure ulcer stage Qualified Code(s): E11.621 - Type 2 diabetes mellitus with foot ulcer; L97.419 - Non-pressure chronic ulcer of right heel and midfoot with unspecified severity (6) Charcot foot due to diabetes mellitus Current Visit: No Status: Acute Status post reconstruction 10/[address] Mercer. (7) HTN (hypertension) Current Visit: Yes Status: Chronic Qualifiers: Hypertension type: essential hypertension Qualified Code(s): I10 - Essential (primary) hypertension (8) DM2 (diabetes mellitus, type 2) Current Visit: Yes Status: Chronic Uncontrolled. HgbA1C 9.4%. Recommend aggressive glucose monitoring and control to promote wound healing and prevent re-infection. Management per the primary team. Qualifiers: Diabetes mellitus termite control representative insulin use: with termite control representative use Diabetes mellitus complication status: with hyperosmolarity Diabetes mellitus complication detail: without coma Qualified Code(s): E11.00 - Type 2 diabetes mellitus with hyperosmolarity without nonketotic hyperglycemic-hyperosmolar coma ([facility]); Z79.4 - jail (current) use of insulin (9) NEHEMIAH (obstructive sleep apnea) Current Visit: No Status: Resolved (10) Morbid obesity with BMI of 50.0-59.9, adult Current Visit: No Status: Acute - Subjective Interval history: Patient seen and examined. Doing great clinically. No complaints. Gets dialyzed tomorrow. Still having good urine output. No chest pain no shortness of breath no diarrhea. No headache. Reason patient has not been discharged is just social studies teacher trying to place him. Patient tells me get dialyzed today. Overall he states he feels well. Infect Dis PN-Objective Data - Labs CBC & Chem 7: 04/25/18 09:43 04/25/18 09:43 Labs: Laboratory Results - last 24 hr 04/24/18 04/25/18 04/25/18 20:16 08:02 11:48 POC Glucose 215 H 176 H 160 H 04/25/18 04/25/18 04/26/18 17:15 20:15 07:29 POC Glucose 156 H 211 H 172 H 04/26/18 11:27 POC Glucose 152 H Cultures: Cultures 04/09/18 23:09 Anaerobic Culture - Final Right Foot No anaerobes were recovered. 04/08/18 14:48 Blood Culture - Final Peripheral Venipuncture No growth. 04/09/18 23:09 Wound Culture - Final Right Foot Staphylococcus aureus Serology 04/17/18 04/13/18 04/11/18 Range/Units 04:45 09:42 14:50 Urine Color (Yellow) Urine Clarity (Clear) Urine pH (5.0-8.0) pH Units Ur Specific [place] (1.010-1.025) Urine Protein (Neg-Trace) mg/dL Urine Glucose (UA) (Normal) mg/dL Urine Ketones (Negative) mg/dL Urine Blood (Negative) Urine Nitrite (Negative) Urine Bilirubin (Negative) Urine Urobilinogen (Normal) mg/dL Ur Leukocyte Esterase (Negative) Urine Microscopic RBC (0-3) per hpf Urine Microscopic WBC (0-3) per hpf Ur Eosinophil Smear 0 (None Seen) % Ur Squamous Epith Cells (None-Few) per lpf Amorphous Sediment (Few) Urine Bacteria (None-Few) per hpf Hyaline Casts (None-Few) per lpf Urine Yeast Ur Culture Indicated? (NO) Urine Creatinine 140 mg/dL Protein/Creatinin Ratio 1.31 H (0.00-0.20) mg/mg Urine Sodium 35.9 mEq/L Urine Total Protein 184 H (1-14) mg/dL Hep Bs Antigen Nonreactive (Nonreactive) Hep Bs Antibody 0.95 mIU/mL 04/11/18 Range/Units 14:50 Urine Color Yellow (Yellow) Urine Clarity Turbid A (Clear) Urine pH 5.5 (5.0-8.0) pH Units Ur Specific [place] 1.020 (1.010-1.025) Urine Protein 100 H (Neg-Trace) mg/dL Urine Glucose (UA) 100 H (Normal) mg/dL Urine Ketones Negative (Negative) mg/dL Urine Blood Large H (Negative) Urine Nitrite Negative (Negative) Urine Bilirubin Negative (Negative) Urine Urobilinogen Normal (Normal) mg/dL Ur Leukocyte Esterase Negative (Negative) Urine Microscopic RBC 5-15 H (0-3) per hpf Urine Microscopic WBC 30-50 H (0-3) per hpf Ur Eosinophil Smear (None Seen) % Ur Squamous Epith Cells Many H (None-Few) per lpf Amorphous Sediment Moderate H (Few) Urine Bacteria None Seen (None-Few) per hpf Hyaline Casts None Seen (None-Few) per lpf Urine Yeast Test Not Performed Ur Culture Indicated? NO (NO) Urine Creatinine mg/dL Protein/Creatinin Ratio (0.00-0.20) mg/mg Urine Sodium mEq/L Urine Total Protein (1-14) mg/dL Hep Bs Antigen (Nonreactive) Hep Bs Antibody mIU/mL Exam - Constitutional Vitals: Temp Pulse Resp BP Pulse Ox 98 F 75 17 189/102 93 04/26/18 14:34 04/26/18 14:34 04/26/18 14:34 04/26/18 14:34 04/26/18 14:34 General appearance: no acute distress, no febrile - Neck Additional comments: Dialysis catheter right IJ - Respiratory Respiratory exam: Present: CTAB. Absent: wheezes - Cardiovascular Cardiovascular exam: Present: RRR, +S1 - GI/Abdominal GI/Abdominal exam: Present: normal bowel sounds, soft. Absent: tenderness Additional comments: Obese - VTE Documentation of Mechanical Device: Intermittent pneumatic compression device Consult Discharge Plan - Plan Instructions: Diabetes Mellitus Type 2 in Adults (DC), Chronic Hypertension (DC ) Referrals: Russell Mercer DPM [Partnered Physician] - (In wound care clinic in 1 week after discharge) Agueda Rahman, VP S[employer] [Advanced Practice Nurse] - 05/09/18 8:40 am Prescriptions: cefTRIAXone [Rocephin] 2,000 mg IVPB DAILY #32 vial Gabapentin [Neurontin] 100 mg PO BID #20 capsule Lisinopril [Zestril] 5 mg PO DAILY #30 tablet Tramadol HCl [Ultram] 50 mg PO QID PRN 5 Days #20 tablet PRN Reason: Mild Pain
[2018-04-26] MEDS: *HR* Heparin 5,000 UNIT/ML VIAL SQ SCH (17:42)
[2018-04-26] MEDS: traMADol 50 MG TABLET PO PRN (18:06)
[2018-04-26] MEDS: tiZANidine 4 MG TABLET PO SCH (21:20)
[2018-04-27] MEDS: *HR* Heparin 5,000 UNIT/ML VIAL SQ SCH ×2 (05:36→18:01)
[2018-04-27 06:52] LABS: Calcium 9.3 mg/dL (8.6-10.3)
[2018-04-27] MEDS: Insulin DETEMIR 100 UNIT/ML X5UNITS SQ SCH ×2 (08:56→21:41)
[2018-04-27] MEDS: Gabapentin 100 MG CAPSULE PO SCH ×2 (08:56→21:38)
[2018-04-27] MEDS: ARIPiprazole 10 MG TABLET PO SCH (08:56)
[2018-04-27] MEDS: amLODIPine 5 MG TABLET PO SCH (08:56)
[2018-04-27] MEDS: cefTRIAXone 2,000 MG in Water for inj. (sterile) 20 ML 20 ML IVP SCH (08:57)
[2018-04-27] MEDS: Cyanocobalamin (B-12) 1,000 MCG TABLET PO SCH (08:57)
[2018-04-27] MEDS: Insulin LISPRO 300 UNITS/3 ML VIAL SQ SCH ×5 (08:58→21:41)
--- NOTE | 2018-04-27 11:41 | Nephrology Progress Note ---
Date of Encounter: 04/27/18 Time of Encounter: 12:00 - Assessment and Plan (1) YESENIA (acute kidney injury) Current Visit: Yes Status: Acute SCr noted at 3.54, GFR 18 after HD yesterday, will monitor for signs of renal recovery over weekend UOP noted at 1000cc in the past 24hrs along with net 1000cc via HD Continue to avoid nephrotoxins if possible (2) Osteomyelitis Current Visit: Yes Status: Acute Per podiatry and primary team Qualifiers: Osteomyelitis type: other Osteomyelitis location: foot Laterality: right Qualified Code(s): M86.8X7 - Other osteomyelitis, ankle and foot (3) Sepsis Current Visit: Yes Status: Resolved ID on board Qualifiers: Sepsis type: sepsis due to unspecified organism Qualified Code(s): A41.9 - Sepsis, unspecified organism Subjective Principal diagnosis: RLE swelling/bleeding Interval history: Pt seen and examined with no new complaints Objective - Vital Signs Vital signs: Vital Signs Temp Pulse Resp BP Pulse Ox 04/27/18 10:55 97.6 F 61 18 136/74 96 04/27/18 08:55 62 04/27/18 06:29 98.1 F 57 18 105/68 96 04/27/18 04:36 98.1 F 57 15 115/67 95 04/26/18 18:34 98.9 F 65 15 125/67 93 04/26/18 14:34 98 F 75 17 189/102 93 04/26/18 13:45 97.5 F L 18 171/89 04/26/18 13:15 176/94 04/26/18 13:00 164/91 04/26/18 12:45 175/94 04/26/18 12:30 149/88 04/26/18 12:15 167/90 04/26/18 12:00 158/90 04/26/18 11:45 167/90 Intake and Output 04/26/18 04/27/18 04/27/18 23:59 07:59 15:59 Intake Total 480 / 480 0 / 0 240 / 240 Output Total 0 / 0 400 / 400 225 / 225 Balance 480 / 480 -400 / -400 Intake: Oral 480 / 480 0 / 0 240 / 240 Output: Urine 0 / 0 400 / 400 225 / 225 Other: Meal Dinner Breakfast Percent of Meal Consumed 100% 100% Blood Glucose* 271 159 193 - General Appearance General appearance: Present: chronically ill (nAD) EENT: Present: ATNC, mucous membranes moist Neck: Present: no JVD, supple Respiratory: Present: clear Cardiology: Present: no edema, normal S1, normal S2 Gastrointestinal: Present: no tenderness, no guarding, obese Integumentary: Present: warm and dry Neurologic: Present: no focal deficit Musculoskeletal: Present: no deformities Psychiatric: Present: mood/affect appropriate, cooperative - Lab 04/25/18 09:43 04/27/18 06:22 Most recent lab results Calcium 9.3 mg/dL (8.6-10.3) 04/27/18 06:22 Phosphorus 5.3 mg/dL (2.7-4.5) H 04/12/18 08:56 Magnesium 1.8 mg/dL (1.6-2.6) 04/12/18 08:56 Urine Creatinine 140 mg/dL 04/11/18 14:50 Urine Sodium 35.9 mEq/L 04/11/18 14:50 Urine Total Protein 184 mg/dL (1-14) H 04/11/18 14:50 - VTE Documentation of Mechanical Device: Intermittent pneumatic compression device Consult Discharge Plan - Plan Instructions: Diabetes Mellitus Type 2 in Adults (DC), Chronic Hypertension (DC ) Referrals: Russell Mercer DPM [Partnered Physician] - (In wound care clinic in 1 week after discharge) Agueda Rahman, REMOTE SENSING SCIENTIST [Advanced Practice Nurse] - 05/09/18 8:40 am Prescriptions: cefTRIAXone [Rocephin] 2,000 mg IVPB DAILY #32 vial Gabapentin [Neurontin] 100 mg PO BID #20 capsule Lisinopril [Zestril] 5 mg PO DAILY #30 tablet Tramadol HCl [Ultram] 50 mg PO QID PRN 5 Days #20 tablet PRN Reason: Mild Pain
--- NOTE | 2018-04-27 16:32 | Internal Med Progress Note ---
Date of Encounter: 04/27/18 Time of Encounter: 12:00 - Assessment and plan (1) Acute on chronic renal failure Current Visit: Yes Status: Acute Assessment and plan: on HD. Awaiting arrangements for outpatient hemodialysis. Qualifiers: Acute renal failure type: with acute tubular necrosis Chronic kidney disease stage: on chronic dialysis Qualified Code(s): N17.0 - Acute kidney failure with tubular necrosis; N18.9 - Chronic kidney disease, unspecified; Z99.2 - Dependence on renal dialysis (2) Osteomyelitis Current Visit: Yes Status: Acute Assessment and plan: On IV Rocephin. Continue IV antibiotics for total of 6 weeks (3) Sepsis Current Visit: Yes Status: Resolved (4) HTN (hypertension) Current Visit: Yes Status: Chronic Assessment and plan: Fairly controlled. Continue current antihypertensives (5) DM2 (diabetes mellitus, type 2) Current Visit: Yes Status: Chronic Assessment and plan: Blood sugars remain elevated. Will add nutritional coverage in addition to sliding scale and long-acting insulin (6) DVT prophylaxis Current Visit: Yes Status: Acute Assessment and plan: On subcutaneous heparin - Time Spent With Patient Total time spent is greater than 50% in coordination of care (as documented) at patient's floor/unit and/or counseling patient: - Subjective Interval history: No acute complaints. Doing well overall. Awaiting Medicaid Approval for dialysis - Constitutional Vitals: Temp Pulse Resp BP Pulse Ox 98.4 F 55 18 142/81 93 04/27/18 14:27 04/27/18 14:27 04/27/18 14:27 04/27/18 14:27 04/27/18 14:27 General appearance: Present: A&O X 3, morbidly obese, no acute distress, answers questions appropriately - Neck Neck exam general surgery: Present: supple, trachea midline. Absent: lymphadenopathy - Respiratory Respiratory exam: Present: CTAB. Absent: accessory muscle use, rales, rhonchi, wheezes - Cardiovascular Cardiovascular exam: Present: RRR, +S1, +S2. Absent: diastolic murmur, gallop, rubs, systolic murmur - Extremities Exam Extremities exam: Present: warm, radial pulses palpable and symmetrical. Absent : calf tenderness, cyanotic, pedal edema Additional comments: Wound vac in place right foot Internal Medicine: Result - Labs CBC & Chem 7: 04/25/18 09:43 04/27/18 06:22 Labs: [facility] 04/27/18 06:22 Sodium 136 Potassium 5.0 Chloride 99 Carbon Dioxide 26 BUN 36 H Creatinine 3.54 H Glucose 172 H Calcium 9.3 - ABG Interpretation ABG results: PT/INR, D-dimer PT 12.8 Seconds (9.4-12.1) H 04/08/18 11:37 - VTE Documentation of Mechanical Device: Intermittent pneumatic compression device Consult Discharge Plan - Plan Instructions: Diabetes Mellitus Type 2 in Adults (DC), Chronic Hypertension (DC ) Referrals: Russell Mercer DPM [Partnered Physician] - (In wound care clinic in 1 week after discharge) Agueda Rahman, WARP PREPARER [Advanced Practice Nurse] - 05/09/18 8:40 am Prescriptions: cefTRIAXone [Rocephin] 2,000 mg IVPB DAILY #32 vial Gabapentin [Neurontin] 100 mg PO BID #20 capsule Lisinopril [Zestril] 5 mg PO DAILY #30 tablet Tramadol HCl [Ultram] 50 mg PO QID PRN 5 Days #20 tablet PRN Reason: Mild Pain
[2018-04-27] MEDS: tiZANidine 4 MG TABLET PO SCH (21:38)
[2018-04-28] MEDS: *HR* Heparin 5,000 UNIT/ML VIAL SQ SCH ×2 (05:18→17:47)
[2018-04-28] MEDS: Insulin LISPRO 300 UNITS/3 ML VIAL SQ SCH ×7 (07:25→21:42)
[2018-04-28] MEDS: ARIPiprazole 10 MG TABLET PO SCH (08:14)
[2018-04-28] MEDS: Gabapentin 100 MG CAPSULE PO SCH ×2 (08:15→21:32)
[2018-04-28] MEDS: amLODIPine 5 MG TABLET PO SCH (08:15)
[2018-04-28] MEDS: cefTRIAXone 2,000 MG in Water for inj. (sterile) 20 ML 20 ML IVP SCH (08:16)
[2018-04-28] MEDS: Cyanocobalamin (B-12) 1,000 MCG TABLET PO SCH (08:17)
[2018-04-28] MEDS: Insulin DETEMIR 100 UNIT/ML X5UNITS SQ SCH ×2 (08:19→21:33)
--- NOTE | 2018-04-28 13:47 | Nephrology Progress Note ---
Date of Encounter: 04/28/18 Time of Encounter: 12:00 - Assessment and Plan (1) YESENIA (acute kidney injury) Current Visit: Yes Status: Acute SCr noted at 3.54, GFR 18 as of yesterday, no new labs today UOP noted at 1100cc in the past 24hrs which is good Continue to avoid nephrotoxins if possible (2) Osteomyelitis Current Visit: Yes Status: Acute Per podiatry and primary team Qualifiers: Osteomyelitis type: other Osteomyelitis location: foot Laterality: right Qualified Code(s): M86.8X7 - Other osteomyelitis, ankle and foot (3) Sepsis Current Visit: Yes Status: Resolved ID on board Qualifiers: Sepsis type: sepsis due to unspecified organism Qualified Code(s): A41.9 - Sepsis, unspecified organism Subjective Principal diagnosis: RLE swelling/bleeding Interval history: Pt seen and examined with no new complaints Objective - Vital Signs Vital signs: Vital Signs Temp Pulse Resp BP Pulse Ox 04/28/18 10:49 97.4 F L 62 18 130/73 93 04/28/18 05:13 97.7 F 57 18 120/75 95 04/27/18 19:09 97.5 F L 58 18 159/77 97 04/27/18 14:27 98.4 F 55 18 142/81 93 Intake and Output 04/27/18 04/28/18 04/28/18 23:59 07:59 15:59 Intake Total 240 / 240 240 / 240 260 / 260 Output Total 300 / 300 200 / 200 375 / 375 Balance -60 / -60 40 / 40 -115 / -115 Intake: IV Fluids 20 / 20 Rocephin 2,000 MG In Water for 20 / 20 inj. (sterile) 20 ML @ 600 mls/ hr IVP DAILY [facility] Rx#:[id number] Oral 240 / 240 240 / 240 240 / 240 Output: Urine 300 / 300 200 / 200 375 / 375 Other: Meal Dinner Breakfast Percent of Meal Consumed 100% 100% Weight 177.9 kg Blood Glucose* 206 130 149 Patient Weight 04/28/18 23:59 Weight 177.9 kg - Lab 04/25/18 09:43 04/27/18 06:22 Most recent lab results Calcium 9.3 mg/dL (8.6-10.3) 04/27/18 06:22 Phosphorus 5.3 mg/dL (2.7-4.5) H 04/12/18 08:56 Magnesium 1.8 mg/dL (1.6-2.6) 04/12/18 08:56 Urine Creatinine 140 mg/dL 04/11/18 14:50 Urine Sodium 35.9 mEq/L 04/11/18 14:50 Urine Total Protein 184 mg/dL (1-14) H 04/11/18 14:50 - VTE Documentation of Mechanical Device: Intermittent pneumatic compression device Consult Discharge Plan - Plan Instructions: Diabetes Mellitus Type 2 in Adults (DC), Chronic Hypertension (DC ) Referrals: Russell Mercer DPM [Partnered Physician] - (In wound care clinic in 1 week after discharge) Agueda Rahman, MOLECULAR TECHNOLOGIST [Advanced Practice Nurse] - 05/09/18 8:40 am Prescriptions: cefTRIAXone [Rocephin] 2,000 mg IVPB DAILY #32 vial Gabapentin [Neurontin] 100 mg PO BID #20 capsule Lisinopril [Zestril] 5 mg PO DAILY #30 tablet Tramadol HCl [Ultram] 50 mg PO QID PRN 5 Days #20 tablet PRN Reason: Mild Pain
--- NOTE | 2018-04-28 14:21 | Internal Med Progress Note ---
Date of Encounter: 04/28/18 Time of Encounter: 08:30 - Assessment and plan (1) Acute on chronic renal failure Current Visit: Yes Status: Acute Assessment and plan: Continue dialysis per nephrology recommendations. Awaiting arrangements for outpatient dialysis. Qualifiers: Acute renal failure type: with acute tubular necrosis Chronic kidney disease stage: on chronic dialysis Qualified Code(s): N17.0 - Acute kidney failure with tubular necrosis; N18.9 - Chronic kidney disease, unspecified; Z99.2 - Dependence on renal dialysis (2) Osteomyelitis Current Visit: Yes Status: Acute Assessment and plan: Due to MSSA and group C streptococci. Continue Rocephin. (3) Sepsis Current Visit: Yes Status: Resolved (4) HTN (hypertension) Current Visit: Yes Status: Chronic Assessment and plan: Blood pressure remains well controlled. No changes to medication regimen at this time (5) DM2 (diabetes mellitus, type 2) Current Visit: Yes Status: Chronic Assessment and plan: Improved control. Continue current insulin regimen. (6) DVT prophylaxis Current Visit: Yes Status: Acute Assessment and plan: On subcutaneous heparin - Time Spent With Patient Total time spent is greater than 50% in coordination of care (as documented) at patient's floor/unit and/or counseling patient: - Subjective Interval history: No new complaints at this time. Patient continues to do well. Denies any pain in his lower extremities. - Constitutional Vitals: Temp Pulse Resp BP Pulse Ox 97.4 F L 62 18 130/73 93 04/28/18 10:49 04/28/18 10:49 04/28/18 10:49 04/28/18 10:49 04/28/18 10:49 General appearance: Present: A&O X 3, morbidly obese, no acute distress, answers questions appropriately - Neck Neck exam general surgery: Present: supple, trachea midline. Absent: lymphadenopathy - Respiratory Respiratory exam: Present: CTAB. Absent: accessory muscle use, rales, rhonchi, wheezes - Cardiovascular Cardiovascular exam: Present: RRR, +S1, +S2. Absent: diastolic murmur, gallop, rubs, systolic murmur - GI/Abdominal GI/Abdominal exam: Present: normal bowel sounds, soft, no peritoneal signs. Absent: distended, tenderness - Extremities Exam Extremities exam: Present: warm, radial pulses palpable and symmetrical. Absent : calf tenderness, cyanotic, pedal edema Additional comments: Both feet currently bandage. Wound VAC present on right foot. - Neurological Exam Neurological exam: Present: alert, oriented X3, no focal deficits. Absent: facial droop, speech deficit - Skin Skin exam: Present: dry, intact Internal Medicine: Result - Labs CBC & Chem 7: 04/25/18 09:43 04/27/18 06:22 - ABG Interpretation ABG results: PT/INR, D-dimer PT 12.8 Seconds (9.4-12.1) H 04/08/18 11:37 - VTE Documentation of Mechanical Device: Intermittent pneumatic compression device Consult Discharge Plan - Plan Instructions: Diabetes Mellitus Type 2 in Adults (DC), Chronic Hypertension (DC ) Referrals: Russell Mercer DPM [Partnered Physician] - (In wound care clinic in 1 week after discharge) Agueda Rahman, [employer] [Advanced Practice Nurse] - 05/09/18 8:40 am Prescriptions: cefTRIAXone [Rocephin] 2,000 mg IVPB DAILY #32 vial Gabapentin [Neurontin] 100 mg PO BID #20 capsule Lisinopril [Zestril] 5 mg PO DAILY #30 tablet Tramadol HCl [Ultram] 50 mg PO QID PRN 5 Days #20 tablet PRN Reason: Mild Pain
[2018-04-28] MEDS: tiZANidine 4 MG TABLET PO SCH (21:32)
[2018-04-29] MEDS: *HR* Heparin 5,000 UNIT/ML VIAL SQ SCH ×2 (05:37→17:33)
[2018-04-29] MEDS: amLODIPine 5 MG TABLET PO SCH (07:35)
[2018-04-29] MEDS: Cyanocobalamin (B-12) 1,000 MCG TABLET PO SCH (07:35)
[2018-04-29] MEDS: ARIPiprazole 10 MG TABLET PO SCH (07:35)
[2018-04-29] MEDS: Gabapentin 100 MG CAPSULE PO SCH ×2 (07:36→20:45)
[2018-04-29] MEDS: cefTRIAXone 2,000 MG in Water for inj. (sterile) 20 ML 20 ML IVP SCH (07:37)
[2018-04-29] MEDS: Insulin DETEMIR 100 UNIT/ML X5UNITS SQ SCH ×2 (07:42→20:45)
[2018-04-29] MEDS: Insulin LISPRO 300 UNITS/3 ML VIAL SQ SCH ×7 (07:42→20:45)
[2018-04-29 08:36] LABS: Hematocrit 26.9 % (37.5-50.1); Hemoglobin 8.6 g/dL (12.9-16.9); Mean Corpuscular Hemoglobin 28.2 pg (28.0-33.3); Mean Corpuscular Volume 88.2 fL (83.0-100.0); Mean Platelet Volume 9.9 fL (9.4-12.4); Platelet Count 174 K/mcL (140-400); Red Blood Count 3.05 M/mcL (4.19-5.50); Red Cell Distribution Width 14.3 % (11.5-14.5)
[2018-04-29 08:52] LABS: Potassium 5.2 mEq/L (3.5-5.1)
[2018-04-29] MEDS ORDERED: *HR* Heparin 10,000 UNIT/10 ML VIAL IV PRN (09:47)
[2018-04-29] MEDS ORDERED: 0.9 % Sodium Chloride 250 ML IVC PRN (09:47)
[2018-04-29] MEDS ORDERED: 0.9 % Sodium Chloride 1,000 ML PRIME SCH (10:00)
--- NOTE | 2018-04-29 16:00 | Internal Med Progress Note ---
Date of Encounter: 04/29/18 Time of Encounter: 15:55 - Assessment and plan (1) Acute on chronic renal failure Current Visit: Yes Status: Acute Assessment and plan: Hemodialysis. Awaiting Medicaid approval for outpatient hemodialysis. Otherwise doing well. Dialyze today. Nephrology following. Qualifiers: Acute renal failure type: with acute tubular necrosis Chronic kidney disease stage: on chronic dialysis Qualified Code(s): N17.0 - Acute kidney failure with tubular necrosis; N18.9 - Chronic kidney disease, unspecified; Z99.2 - Dependence on renal dialysis (2) Osteomyelitis Current Visit: Yes Status: Acute Assessment and plan: Continue Rocephin. Complete 6 weeks of antibiotic course. (3) Sepsis Current Visit: Yes Status: Resolved (4) HTN (hypertension) Current Visit: Yes Status: Chronic Assessment and plan: fairly controlled. No changes to medication regimen (5) DM2 (diabetes mellitus, type 2) Current Visit: Yes Status: Chronic Assessment and plan: Improved control. Continue current insulin regimen (6) DVT prophylaxis Current Visit: Yes Status: Acute - Time Spent With Patient Total time spent is greater than 50% in coordination of care (as documented) at patient's floor/unit and/or counseling patient: - Subjective Interval history: No acute issues. Underwent dialysis without any issues today. Awaiting Medicaid approval. Wound vac removed. - Constitutional Vitals: Temp Pulse Resp BP Pulse Ox 98.6 F 68 16 131/82 94 04/29/18 14:57 04/29/18 14:57 04/29/18 14:57 04/29/18 14:57 04/29/18 14:57 General appearance: Present: A&O X 3, morbidly obese, no acute distress, answers questions appropriately - Respiratory Respiratory exam: Present: CTAB. Absent: accessory muscle use, rales, rhonchi, wheezes - Cardiovascular Cardiovascular exam: Present: RRR, +S1, +S2. Absent: diastolic murmur, gallop, rubs, systolic murmur - GI/Abdominal GI/Abdominal exam: Present: normal bowel sounds, soft, no peritoneal signs. Absent: distended, tenderness - Extremities Exam Extremities exam: Present: warm, radial pulses palpable and symmetrical. Absent : calf tenderness, cyanotic, pedal edema Additional comments: Both feet are currently bandaged. Wound VAC has been removed from right foot Internal Medicine: Result - Labs CBC & Chem 7: 04/29/18 08:17 04/29/18 08:17 Labs: Short CBC 04/29/18 Range/Units 08:17 WBC 5.6 (4.3-11.1) K/mcL Hgb 8.6 L (12.9-16.9) g/dL Hct 26.9 L (37.5-50.1) % Plt Count 174 (140-400) K/mcL BMP 04/29/18 08:17 Sodium 137 Potassium 5.2 H Chloride 103 Carbon Dioxide 25 BUN 58 H Creatinine 4.37 H Glucose 145 H Calcium 9.0 - ABG Interpretation ABG results: PT/INR, D-dimer PT 12.8 Seconds (9.4-12.1) H 04/08/18 11:37 - VTE Documentation of Mechanical Device: Intermittent pneumatic compression device Consult Discharge Plan - Plan Instructions: Diabetes Mellitus Type 2 in Adults (DC), Chronic Hypertension (DC ) Referrals: Russell Mercer DPM [Partnered Physician] - (In wound care clinic in 1 week after discharge) Agueda Rahman, ADVERTISING SALES REPRESENTATIVE [Advanced Practice Nurse] - 05/09/18 8:40 am Prescriptions: cefTRIAXone [Rocephin] 2,000 mg IVPB DAILY #32 vial Gabapentin [Neurontin] 100 mg PO BID #20 capsule Lisinopril [Zestril] 5 mg PO DAILY #30 tablet Tramadol HCl [Ultram] 50 mg PO QID PRN 5 Days #20 tablet PRN Reason: Mild Pain
--- NOTE | 2018-04-29 17:12 | Infectious Disease Progress No ---
Date of Encounter: 04/29/18 Time of Encounter: 17:11 - Assessment and Plan (1) Sepsis Current Visit: Yes Status: Resolved The patient had two SIRS criteria on admission. Likely secondary to right foot infection and OM. Resolved. Afebrile. WBC normalized. Blood cultures drawn 04/08/18 are negative x 2 sets. Qualifiers: Sepsis type: sepsis due to unspecified organism Qualified Code(s): A41.9 - Sepsis, unspecified organism (2) Osteomyelitis Current Visit: Yes Status: Acute Causative organism: GCS and MSSA. Location: Right foot talus and navicularis. Likely secondary to right foot DFU. X-ray of the right foot completed 04/08/18 showed bony erosion of the talus and navicularis. ESR 106, CRP >300. Podiatry consulted and following. Status post I&D of the right ankle/foot, removal of hardware, and bone biopsy. Operative note was reviewed. Purulence noted Intra-Op adjacent to the hardware. Intraoperative cultures are positive for MSSA. Pathology positive for OM of the talus bone. Status post partial closure with wound VAC placement at the bedside on Sunday by Dr. Mercer. Wound care and activity restrictions as outlined by the podiatry team. Continue Rocephin 2 grams IV daily (day 14). Duration of treatment depends on the clinical picture, but likely 6 weeks of IV antibiotics. Continue to monitor renal function. Will need weekly CBC, BUN/Cr, ESR, CRP. Will need weekly IV care. Follow up with ID 05/09/18 at 0840. Qualifiers: Osteomyelitis type: other Osteomyelitis location: foot Laterality: right Qualified Code(s): M86.8X7 - Other osteomyelitis, ankle and foot (3) Abscess of right foot Current Visit: Yes Status: Acute Location: Right foot. Causative organism: GCS and MSSA. Status post I & D 04/09/[address] Mercer. Antibiotics as above. (4) YESENIA (acute kidney injury) Current Visit: Yes Status: Acute YESENIA on CKD. Urine output improved. Etiology unclear, but likely multifactorial: hypotension post-op, Vancomycin, dehydration Continue to trend. Nephrology consulted and following. HD initiated 04/13/18. RP UTS negative. Avoid additional nephrotoxins. Dose-adjust antibiotics as needed. (5) Diabetic foot ulcer Current Visit: Yes Status: Acute Etiology unclear. Podiatry consulted and following. Qualifiers: Diabetic foot ulcer location: heel Diabetes mellitus type: type 2 Laterality: right Non-pressure ulcer stage: unspecified non-pressure ulcer stage Qualified Code(s): E11.621 - Type 2 diabetes mellitus with foot ulcer; L97.419 - Non-pressure chronic ulcer of right heel and midfoot with unspecified severity (6) Charcot foot due to diabetes mellitus Current Visit: No Status: Acute Status post reconstruction 10/[address] Mercer. (7) HTN (hypertension) Current Visit: Yes Status: Chronic Qualifiers: Hypertension type: essential hypertension Qualified Code(s): I10 - Essential (primary) hypertension (8) DM2 (diabetes mellitus, type 2) Current Visit: Yes Status: Chronic Uncontrolled. HgbA1C 9.4%. Recommend aggressive glucose monitoring and control to promote wound healing and prevent re-infection. Management per the primary team. Qualifiers: Diabetes mellitus joint terminal attack controller insulin use: with joint terminal attack controller use Diabetes mellitus complication status: with hyperosmolarity Diabetes mellitus complication detail: without coma Qualified Code(s): E11.00 - Type 2 diabetes mellitus with hyperosmolarity without nonketotic hyperglycemic-hyperosmolar coma ([facility]); Z79.4 - senior living (current) use of insulin (9) NEHEMIAH (obstructive sleep apnea) Current Visit: No Status: Resolved (10) Morbid obesity with BMI of 50.0-59.9, adult Current Visit: No Status: Acute - Subjective Interval history: Patient seen and examined. Doing great clinically. No complaints. Gets dialyzed tomorrow. Still having good urine output. No chest pain no shortness of breath no diarrhea. No headache. Reason patient has not been discharged is just social service agency director trying to place him. Patient tells me get dialyzed today. Overall he states he feels well. Overall he recently saw her is waiting for Medicaid approval I believe Infect Dis PN-Objective Data - Labs CBC & Chem 7: 04/29/18 08:17 04/29/18 08:17 Labs: Laboratory Results - last 24 hr 04/26/18 04/28/18 04/29/18 20:59 20:57 07:20 WBC RBC Hgb Hct MCV MCH MCHC RDW Plt Count MPV Sodium Potassium Chloride Carbon Dioxide BUN Creatinine Est GFR ( Amer) Est GFR (Non-Af Amer) BUN/Creatinine Ratio Glucose POC Glucose 271 H 153 H 149 H Calculated Osmolality Calcium 04/29/18 04/29/18 08:17 08:17 WBC 5.6 RBC 3.05 L Hgb 8.6 L Hct 26.9 L MCV 88.2 MCH 28.2 MCHC 32.0 RDW 14.3 Plt Count 174 MPV 9.9 Sodium 137 Potassium 5.2 H Chloride 103 Carbon Dioxide 25 BUN 58 H Creatinine 4.37 H Est GFR ( Amer) 18 L Est GFR (Non-Af Amer) 14 L BUN/Creatinine Ratio 13 Glucose 145 H POC Glucose Calculated Osmolality 303 H Calcium 9.0 Cultures: Cultures 04/09/18 23:09 Anaerobic Culture - Final Right Foot No anaerobes were recovered. 04/08/18 14:48 Blood Culture - Final Peripheral Venipuncture No growth. 04/09/18 23:09 Wound Culture - Final Right Foot Staphylococcus aureus Serology 04/17/18 04/13/18 04/11/18 Range/Units 04:45 09:42 14:50 Urine Color (Yellow) Urine Clarity (Clear) Urine pH (5.0-8.0) pH Units Ur Specific [place] (1.010-1.025) Urine Protein (Neg-Trace) mg/dL Urine Glucose (UA) (Normal) mg/dL Urine Ketones (Negative) mg/dL Urine Blood (Negative) Urine Nitrite (Negative) Urine Bilirubin (Negative) Urine Urobilinogen (Normal) mg/dL Ur Leukocyte Esterase (Negative) Urine Microscopic RBC (0-3) per hpf Urine Microscopic WBC (0-3) per hpf Ur Eosinophil Smear 0 (None Seen) % Ur Squamous Epith Cells (None-Few) per lpf Amorphous Sediment (Few) Urine Bacteria (None-Few) per hpf Hyaline Casts (None-Few) per lpf Urine Yeast Ur Culture Indicated? (NO) Urine Creatinine 140 mg/dL Protein/Creatinin Ratio 1.31 H (0.00-0.20) mg/mg Urine Sodium 35.9 mEq/L Urine Total Protein 184 H (1-14) mg/dL Hep Bs Antigen Nonreactive (Nonreactive) Hep Bs Antibody 0.95 mIU/mL 04/11/18 Range/Units 14:50 Urine Color Yellow (Yellow) Urine Clarity Turbid A (Clear) Urine pH 5.5 (5.0-8.0) pH Units Ur Specific [place] 1.020 (1.010-1.025) Urine Protein 100 H (Neg-Trace) mg/dL Urine Glucose (UA) 100 H (Normal) mg/dL Urine Ketones Negative (Negative) mg/dL Urine Blood Large H (Negative) Urine Nitrite Negative (Negative) Urine Bilirubin Negative (Negative) Urine Urobilinogen Normal (Normal) mg/dL Ur Leukocyte Esterase Negative (Negative) Urine Microscopic RBC 5-15 H (0-3) per hpf Urine Microscopic WBC 30-50 H (0-3) per hpf Ur Eosinophil Smear (None Seen) % Ur Squamous Epith Cells Many H (None-Few) per lpf Amorphous Sediment Moderate H (Few) Urine Bacteria None Seen (None-Few) per hpf Hyaline Casts None Seen (None-Few) per lpf Urine Yeast Test Not Performed Ur Culture Indicated? NO (NO) Urine Creatinine mg/dL Protein/Creatinin Ratio (0.00-0.20) mg/mg Urine Sodium mEq/L Urine Total Protein (1-14) mg/dL Hep Bs Antigen (Nonreactive) Hep Bs Antibody mIU/mL Exam - Constitutional Vitals: Temp Pulse Resp BP Pulse Ox 98.6 F 68 16 131/82 94 04/29/18 14:57 04/29/18 14:57 04/29/18 14:57 04/29/18 14:57 04/29/18 14:57 General appearance: cooperative, no acute distress - Respiratory Respiratory exam: Present: CTAB, wheezes - Cardiovascular Cardiovascular exam: Present: RRR, +S1, +S2 - GI/Abdominal GI/Abdominal exam: Present: soft. Absent: tenderness - VTE Documentation of Mechanical Device: Intermittent pneumatic compression device Consult Discharge Plan - Plan Instructions: Diabetes Mellitus Type 2 in Adults (DC), Chronic Hypertension (DC ) Referrals: Russell Mercer DPM [Partnered Physician] - (In wound care clinic in 1 week after discharge) Agueda Rahman, ROCKET ENGINE TESTER [Advanced Practice Nurse] - 05/09/18 8:40 am Prescriptions: cefTRIAXone [Rocephin] 2,000 mg IVPB DAILY #32 vial Gabapentin [Neurontin] 100 mg PO BID #20 capsule Lisinopril [Zestril] 5 mg PO DAILY #30 tablet Tramadol HCl [Ultram] 50 mg PO QID PRN 5 Days #20 tablet PRN Reason: Mild Pain
--- NOTE | 2018-04-29 18:01 | Nephrology Progress Note ---
Date of Encounter: 04/29/18 - Assessment and Plan (1) YESENIA (acute kidney injury) Current Visit: Yes Status: Acute SCr noted at 3.54, GFR 18 as of yesterday, no new labs today UOP noted at 1100cc in the past 24hrs which is good Continue to avoid nephrotoxins if possible (2) Osteomyelitis Current Visit: Yes Status: Acute Per podiatry and primary team Qualifiers: Osteomyelitis type: other Osteomyelitis location: foot Laterality: right Qualified Code(s): M86.8X7 - Other osteomyelitis, ankle and foot (3) Sepsis Current Visit: Yes Status: Resolved ID on board Qualifiers: Sepsis type: sepsis due to unspecified organism Qualified Code(s): A41.9 - Sepsis, unspecified organism Subjective Principal diagnosis: RLE swelling/bleeding Interval history: Pt seen and examined with no new complaints Objective - Vital Signs Vital signs: Vital Signs Temp Pulse Resp BP Pulse Ox 04/29/18 14:57 98.6 F 68 16 131/82 94 04/29/18 14:43 97.5 F L 18 141/65 04/29/18 14:20 141/65 04/29/18 14:05 133/59 04/29/18 13:50 124/63 04/29/18 13:35 123/56 04/29/18 13:20 134/63 04/29/18 13:05 137/67 04/29/18 12:50 147/68 04/29/18 12:35 147/71 04/29/18 12:20 138/72 04/29/18 12:05 125/56 04/29/18 11:50 120/50 04/29/18 11:35 124/60 04/29/18 11:20 144/44 04/29/18 11:05 146/74 04/29/18 10:50 128/69 04/29/18 10:35 135/67 04/29/18 10:20 97.4 F L 18 138/70 04/29/18 07:22 98.2 F 56 12 128/79 96 04/28/18 19:28 98.4 F 62 18 144/79 93 Intake and Output 04/29/18 04/29/18 04/29/18 07:59 15:59 23:59 Intake Total 840 / 840 Output Total 700 / 700 1875 / 1875 250 / 250 Balance -700 / -700 -1035 / -1035 -250 / -250 Intake: Oral 240 / 240 Intake, Rinseback and Flushes 600 / 600 Output: Urine 700 / 700 275 / 275 250 / 250 Total Dialysis (HD) Output 1600 / 1600 Other: Meal Breakfast Percent of Meal Consumed 100% Weight 177.9 kg Blood Glucose* 149 131 247 Hemodialysis Net Fluid Removed 1000 (mL) Patient Weight 04/29/18 23:59 Weight 177.9 kg - Lab 04/29/18 08:17 04/29/18 08:17 Most recent lab results Calcium 9.0 mg/dL (8.6-10.3) 04/29/18 08:17 Phosphorus 5.3 mg/dL (2.7-4.5) H 04/12/18 08:56 Magnesium 1.8 mg/dL (1.6-2.6) 04/12/18 08:56 Urine Creatinine 140 mg/dL 04/11/18 14:50 Urine Sodium 35.9 mEq/L 04/11/18 14:50 Urine Total Protein 184 mg/dL (1-14) H 04/11/18 14:50 - VTE Documentation of Mechanical Device: Intermittent pneumatic compression device Consult Discharge Plan - Plan Instructions: Diabetes Mellitus Type 2 in Adults (DC), Chronic Hypertension (DC ) Referrals: Russell Mercer DPM [Partnered Physician] - (In wound care clinic in 1 week after discharge) Agueda Rahman, CREDIT INVESTIGATOR [Advanced Practice Nurse] - 05/09/18 8:40 am Prescriptions: cefTRIAXone [Rocephin] 2,000 mg IVPB DAILY #32 vial Gabapentin [Neurontin] 100 mg PO BID #20 capsule Lisinopril [Zestril] 5 mg PO DAILY #30 tablet Tramadol HCl [Ultram] 50 mg PO QID PRN 5 Days #20 tablet PRN Reason: Mild Pain
--- NOTE | 2018-04-29 18:22 | Podiatry Progress Note ---
Date of Encounter: 04/29/18 Time of Encounter: 17:00 - Assessment and Plan (1) Charcot foot due to diabetes mellitus Current Visit: No Status: Acute (2) Diabetic foot ulcer Current Visit: Yes Status: Acute Chronic charcot s/p surgery in 2017. Developed abscess and infection prior to admission. s/p I&D and removal of hardware. Right lateral ankle was excisionally debrided removing fibrotic tissue on the plantar lateral aspect of the right foot/ankle on 04/19/18. No purulence expressed from the wound sites. 50 ml of serous drainage observed in canister. WBC: 5.6 Microbiology 04/09/18 23:09 Right Foot Anaerobic Culture - Final No anaerobes were recovered. 04/08/18 11:49 Peripheral Venipuncture Blood Culture - Final No growth. 04/08/18 14:48 Peripheral Venipuncture Blood Culture - Final No growth. 04/09/18 23:09 Right Foot Wound Culture - Final Staphylococcus aureus 04/08/18 11:30 Right Foot Wound Culture - Final Group C Streptococcus Plan: Wound vac changed at bedside, irrigated wound with saline, pat dry, applied white sponge, small black simplace wound vac sponge, connected to 150 mmhg continuous suction. Change every M-W-F. Follow up with Dr. Mercer in the wound care center one week after discharge. IV abx per infectious disease. Non weight bearing to RLE. Qualifiers: Diabetic foot ulcer location: heel Diabetes mellitus type: type 2 Laterality: right Non-pressure ulcer stage: unspecified non-pressure ulcer stage Qualified Code(s): E11.621 - Type 2 diabetes mellitus with foot ulcer; L97.419 - Non-pressure chronic ulcer of right heel and midfoot with unspecified severity (3) Abscess of right foot Current Visit: Yes Status: Acute Subjective Principal diagnosis: RLE swelling/bleeding Interval history: Patient is lying in bed with posterior splint intact to the RLE and connected to a wound vac. Patient has chronic charcot s/p surgery in 2017. Developed abscess and infection prior to admission. s/p I&D and removal of hardware. Dr. Mercer performed a right lateral ankle excisional debridement removing fibrotic tissue on the plantar lateral aspect of the right foot/ankle on 04/19/18. Patient had dialysis today. No c/o pain, fever or chills. Per nurse wound vac has not been changed since Sunday04/24/18. Objective - Vital Signs Vital Signs: Vital Signs Temp Pulse Resp BP Pulse Ox 04/29/18 14:57 98.6 F 68 16 131/82 94 04/29/18 14:43 97.5 F L 18 141/65 04/29/18 14:20 141/65 04/29/18 14:05 133/59 04/29/18 13:50 124/63 04/29/18 13:35 123/56 04/29/18 13:20 134/63 04/29/18 13:05 137/67 04/29/18 12:50 147/68 04/29/18 12:35 147/71 04/29/18 12:20 138/72 04/29/18 12:05 125/56 04/29/18 11:50 120/50 04/29/18 11:35 124/60 04/29/18 11:20 144/44 04/29/18 11:05 146/74 04/29/18 10:50 128/69 04/29/18 10:35 135/67 04/29/18 10:20 97.4 F L 18 138/70 04/29/18 07:22 98.2 F 56 12 128/79 96 04/28/18 19:28 98.4 F 62 18 144/79 93 Intake and Output 04/29/18 04/29/18 04/29/18 07:59 15:59 23:59 Intake Total 840 / 840 240 / 240 Output Total 700 / 700 1875 / 1875 250 / 250 Balance -700 / -700 -1035 / -1035 -10 / -10 Intake: Oral 240 / 240 240 / 240 Intake, Rinseback and Flushes 600 / 600 Output: Urine 700 / 700 275 / 275 250 / 250 Total Dialysis (HD) Output 1600 / 1600 Other: Meal Breakfast Dinner Percent of Meal Consumed 100% 100% Weight 177.9 kg Blood Glucose* 149 131 247 Hemodialysis Net Fluid Removed 1000 (mL) Patient Weight 04/29/18 23:59 Weight 177.9 kg - Exam Exam: General appearance: alert awake oriented X 3. Calm and pleasant, no acute distress.. Vascular: No evidence of cyanosis, pallor or rubor, Edema graded at 1+/4, Skin Temperature warm, No calf pain with manual compression. capillary refill time is immediate to digits. Neurologic: Sensation diminished with light touch to foot. . Postop Exam: S/P Open wound to the right lateral ankle measuring 4 cm in length x 1 cm in width x 3 cm in depth. Ligament exposed. No probe to bone, no fluctuance. Wound edges are macerated. Sutures intact to incision lines. No erythema, no pus , no odor, no cellulitis. 50 mls of serous drainage observed to canister. - Lab Result Diagrams: 04/29/18 08:17 04/29/18 08:17 Labs: Abnormal lab results RBC 3.05 M/mcL (4.19-5.50) L 04/29/18 08:17 Hgb 8.6 g/dL (12.9-16.9) L 04/29/18 08:17 Hct 26.9 % (37.5-50.1) L 04/29/18 08:17 Metamyelocytes % 2.0 % (0) H 04/11/18 08:13 Nucleated RBCs/100 WBC 0.3 /100 WBC (0) H 04/21/18 07:09 Platelet Estimate Slight increase (Normal) H 04/16/18 06:26 ESR 106 mm/hr (0-10) H 04/08/18 18:00 PT 12.8 Seconds (9.4-12.1) H 04/08/18 11:37 Potassium 5.2 mEq/L (3.5-5.1) H 04/29/18 08:17 BUN 58 mg/dL (6-20) H 04/29/18 08:17 Creatinine 4.37 mg/dL (0.70-1.30) H 04/29/18 08:17 Est GFR ( Amer) 18 (> 60) L 04/29/18 08:17 Est GFR (Non-Af Amer) 14 (> 60) L 04/29/18 08:17 Glucose 145 mg/dL (70-105) H 04/29/18 08:17 POC Glucose 149 mg/dL (70-99) H 04/29/18 07:20 Hemoglobin A1c 9.4 % (-5.6) H 04/09/18 06:56 Calculated Osmolality 303 (280-300) H 04/29/18 08:17 Phosphorus 5.3 mg/dL (2.7-4.5) H 04/12/18 08:56 Creatine Kinase 277 Units/L (30-223) H 04/13/18 15:02 C-Reactive Protein > 300 mg/L (Less than 10) H 04/08/18 18:00 Urine Clarity Turbid (Clear) A 04/11/18 14:50 Urine Protein 100 mg/dL (Neg-Trace) H 04/11/18 14:50 Urine Glucose (UA) 100 mg/dL (Normal) H 04/11/18 14:50 Urine Blood Large (Negative) H 04/11/18 14:50 Urine Microscopic RBC 5-15 per hpf (0-3) H 04/11/18 14:50 Urine Microscopic WBC 30-50 per hpf (0-3) H 04/11/18 14:50 Ur Squamous Epith Cells Many per lpf (None-Few) H 04/11/18 14:50 Amorphous Sediment Moderate (Few) H 04/11/18 14:50 Protein/Creatinin Ratio 1.31 mg/mg (0.00-0.20) H 04/11/18 14:50 Urine Total Protein 184 mg/dL (1-14) H 04/11/18 14:50 Vancomycin Trough 30 mcg/mL (5-10) H 04/10/18 12:44 - VTE Documentation of Mechanical Device: Intermittent pneumatic compression device Consult Discharge Plan - Plan Instructions: Diabetes Mellitus Type 2 in Adults (DC), Chronic Hypertension (DC ) Referrals: Russell Mercer DPM [Partnered Physician] - (In wound care clinic in 1 week after discharge) Agueda Rahman, MOLDING LINE ASSISTANT [Advanced Practice Nurse] - 05/09/18 8:40 am Prescriptions: cefTRIAXone [Rocephin] 2,000 mg IVPB DAILY #32 vial Gabapentin [Neurontin] 100 mg PO BID #20 capsule Lisinopril [Zestril] 5 mg PO DAILY #30 tablet Tramadol HCl [Ultram] 50 mg PO QID PRN 5 Days #20 tablet PRN Reason: Mild Pain
[2018-04-29] MEDS: tiZANidine 4 MG TABLET PO SCH (20:56)
[2018-04-30] MEDS: *HR* Heparin 5,000 UNIT/ML VIAL SQ SCH ×2 (06:02→17:17)
[2018-04-30] MEDS: amLODIPine 5 MG TABLET PO SCH (07:56)
[2018-04-30] MEDS: Cyanocobalamin (B-12) 1,000 MCG TABLET PO SCH (07:56)
[2018-04-30] MEDS: Gabapentin 100 MG CAPSULE PO SCH ×2 (07:56→21:33)
[2018-04-30] MEDS: cefTRIAXone 2,000 MG in Water for inj. (sterile) 20 ML 20 ML IVP SCH (07:57)
[2018-04-30] MEDS: Insulin LISPRO 300 UNITS/3 ML VIAL SQ SCH ×7 (07:58→21:31)
[2018-04-30] MEDS: ARIPiprazole 10 MG TABLET PO SCH (08:03)
[2018-04-30] MEDS: Insulin DETEMIR 100 UNIT/ML X5UNITS SQ SCH ×2 (08:04→21:33)
--- NOTE | 2018-04-30 11:51 | Internal Med Progress Note ---
Date of Encounter: 04/30/18 Time of Encounter: 11:50 - Assessment and plan (1) Acute on chronic renal failure Current Visit: Yes Status: Acute Assessment and plan: Hemodialysis per renal. Awaiting Medicaid approval for outpatient hemodialysis. Nephrology following. Qualifiers: Acute renal failure type: with acute tubular necrosis Chronic kidney disease stage: on chronic dialysis Qualified Code(s): N17.0 - Acute kidney failure with tubular necrosis; N18.9 - Chronic kidney disease, unspecified; Z99.2 - Dependence on renal dialysis (2) Osteomyelitis Current Visit: Yes Status: Acute Assessment and plan: Continue Rocephin. Complete 6 weeks antibiotic course. Awaiting set up of outpatient hemodialysis for discharge planning Qualifiers: Osteomyelitis type: other Osteomyelitis location: foot Laterality: right Qualified Code(s): M86.8X7 - Other osteomyelitis, ankle and foot (3) HTN (hypertension) Current Visit: Yes Status: Chronic Assessment and plan: fairly controlled. No changes to medication regimen Qualifiers: Hypertension type: essential hypertension Qualified Code(s): I10 - Essential (primary) hypertension (4) DM2 (diabetes mellitus, type 2) Current Visit: Yes Status: Chronic Assessment and plan: Improved control. Continue current insulin regimen Qualifiers: Diabetes mellitus rn long term care insulin use: with rn long term care use Diabetes mellitus complication status: with hyperosmolarity Diabetes mellitus complication detail: without coma Qualified Code(s): E11.00 - Type 2 diabetes mellitus with hyperosmolarity without nonketotic hyperglycemic-hyperosmolar coma ([facility]); Z79.4 - intermodal customer service (current) use of insulin (5) DVT prophylaxis Current Visit: Yes Status: Acute Assessment and plan: On subcutaneous heparin (6) Sepsis Current Visit: Yes Status: Resolved Assessment and plan: Due to MSSA and GCS and from osteomyelitis involving the right foot. On IV Rocephin. Qualifiers: Sepsis type: sepsis due to unspecified organism Qualified Code(s): A41.9 - Sepsis, unspecified organism - Time Spent With Patient Total time spent is greater than 50% in coordination of care (as documented) at patient's floor/unit and/or counseling patient: - Subjective Interval history: No acute events overnight - Constitutional Vitals: Temp Pulse Resp BP Pulse Ox 97.3 F L 63 16 139/82 91 04/30/18 10:46 04/30/18 10:46 04/30/18 10:46 04/30/18 10:46 04/30/18 10:46 General appearance: Present: A&O X 3, morbidly obese, no acute distress, answers questions appropriately - Head Head exam: Present: atraumatic, normocephalic - Eye Eye exam: Present: PERRL, conjuntiva pink, sclera anicteric Pupils: Present: PERRL - Neck Neck exam general surgery: Present: supple, trachea midline. Absent: lymphadenopathy - Respiratory Respiratory exam: Present: CTAB. Absent: accessory muscle use, rales, rhonchi, wheezes - Cardiovascular Cardiovascular exam: Present: RRR, +S1, +S2. Absent: diastolic murmur, gallop, rubs, systolic murmur - GI/Abdominal GI/Abdominal exam: Present: normal bowel sounds, soft, no peritoneal signs. Absent: distended, tenderness - Extremities Exam Extremities exam: Present: warm, radial pulses palpable and symmetrical. Absent : calf tenderness, cyanotic, pedal edema - Neurological Exam Neurological exam: Present: CN II-XII intact, oriented X3, no focal deficits. Absent: pronater drift, facial droop, speech deficit - Skin Skin exam: Present: dry, intact Internal Medicine: Result - Labs CBC & Chem 7: 04/29/18 08:17 04/29/18 08:17 - ABG Interpretation ABG results: PT/INR, D-dimer PT 12.8 Seconds (9.4-12.1) H 04/08/18 11:37 - VTE Documentation of Mechanical Device: Intermittent pneumatic compression device Consult Discharge Plan - Plan Instructions: Diabetes Mellitus Type 2 in Adults (DC), Chronic Hypertension (DC ) Referrals: Russell Mercer DPM [Partnered Physician] - (In wound care clinic in 1 week after discharge) Agueda Rahman, PROVIDER ENROLLMENT SPECIALIST [Advanced Practice Nurse] - 05/09/18 8:40 am Prescriptions: cefTRIAXone [Rocephin] 2,000 mg IVPB DAILY #32 vial Gabapentin [Neurontin] 100 mg PO BID #20 capsule Lisinopril [Zestril] 5 mg PO DAILY #30 tablet Tramadol HCl [Ultram] 50 mg PO QID PRN 5 Days #20 tablet PRN Reason: Mild Pain
--- NOTE | 2018-04-30 13:04 | Nephrology Progress Note ---
Date of Encounter: 04/30/18 Time of Encounter: 12:00 - Assessment and Plan (1) YESENIA (acute kidney injury) Current Visit: Yes Status: Acute No new labs today, will plan HD for tomorrow if needed UOP noted at 1225cc in the past 24hrs which is good Continue to avoid nephrotoxins if possible (2) Osteomyelitis Current Visit: Yes Status: Acute Per podiatry and primary team Qualifiers: Osteomyelitis type: other Osteomyelitis location: foot Laterality: right Qualified Code(s): M86.8X7 - Other osteomyelitis, ankle and foot (3) Sepsis Current Visit: Yes Status: Resolved ID on board Qualifiers: Sepsis type: sepsis due to unspecified organism Qualified Code(s): A41.9 - Sepsis, unspecified organism Subjective Principal diagnosis: RLE swelling/bleeding Interval history: Pt seen and examined with no new complaints, still awaiting medicaid papers before discharge to [facility] with HD outpatient. Objective - Vital Signs Vital signs: Vital Signs Temp Pulse Resp BP Pulse Ox 04/30/18 10:46 97.3 F L 63 16 139/82 91 04/30/18 07:18 98.3 F 66 16 163/74 92 04/30/18 05:01 97.9 F 60 15 132/78 95 04/29/18 19:58 98.7 F 69 15 151/80 94 04/29/18 14:57 98.6 F 68 16 131/82 94 04/29/18 14:43 97.5 F L 18 141/65 04/29/18 14:20 141/65 04/29/18 14:05 133/59 04/29/18 13:50 124/63 04/29/18 13:35 123/56 04/29/18 13:20 134/63 04/29/18 13:05 137/67 Intake and Output 04/29/18 04/30/18 04/30/18 23:59 07:59 15:59 Intake Total 240 / 240 0 / 0 Output Total 300 / 300 675 / 675 Balance -60 / -60 -675 / -675 Intake: Oral 240 / 240 0 / 0 Output: Urine 250 / 250 675 / 675 Wound Drainage 50 / 50 Right Foot 50 / 50 Other: Meal Dinner Percent of Meal Consumed 100% Stool Size Moderate Stool Consistency soft formed Stool Characteristics Normal for Patient Stool Color Brown # Bowel Movements 1 Blood Glucose* 211 117 197 - General Appearance General appearance: Present: chronically ill (NAD) EENT: Present: ATNC, mucous membranes moist Neck: Present: no JVD, supple Respiratory: Present: clear (ant bilat) Cardiology: Present: no edema, normal S1, normal S2 Dialysis Vascular Access: Venous Catheter (pemrcath) Gastrointestinal: Present: no tenderness, no guarding, obese Integumentary: Present: warm and dry Neurologic: Present: no focal deficit Musculoskeletal: Present: no deformities Psychiatric: Present: mood/affect appropriate, cooperative - Lab 04/29/18 08:17 04/29/18 08:17 Most recent lab results Calcium 9.0 mg/dL (8.6-10.3) 04/29/18 08:17 Phosphorus 5.3 mg/dL (2.7-4.5) H 04/12/18 08:56 Magnesium 1.8 mg/dL (1.6-2.6) 04/12/18 08:56 Urine Creatinine 140 mg/dL 04/11/18 14:50 Urine Sodium 35.9 mEq/L 04/11/18 14:50 Urine Total Protein 184 mg/dL (1-14) H 04/11/18 14:50 - VTE Documentation of Mechanical Device: Intermittent pneumatic compression device Consult Discharge Plan - Plan Instructions: Diabetes Mellitus Type 2 in Adults (DC), Chronic Hypertension (DC ) Referrals: Russell Mercer DPM [Partnered Physician] - (In wound care clinic in 1 week after discharge) Agueda Rahman, FINANCE ASSISTANT [Advanced Practice Nurse] - 05/09/18 8:40 am Prescriptions: cefTRIAXone [Rocephin] 2,000 mg IVPB DAILY #32 vial Gabapentin [Neurontin] 100 mg PO BID #20 capsule Lisinopril [Zestril] 5 mg PO DAILY #30 tablet Tramadol HCl [Ultram] 50 mg PO QID PRN 5 Days #20 tablet PRN Reason: Mild Pain
--- NOTE | 2018-04-30 17:08 | Infectious Disease Progress No ---
Date of Encounter: 04/30/18 Time of Encounter: 17:07 - Assessment and Plan (1) Sepsis Current Visit: Yes Status: Resolved The patient had two SIRS criteria on admission. Likely secondary to right foot infection and OM. Resolved. Afebrile. WBC normalized. Blood cultures drawn 04/08/18 are negative x 2 sets. Qualifiers: Sepsis type: sepsis due to unspecified organism Qualified Code(s): A41.9 - Sepsis, unspecified organism (2) Osteomyelitis Current Visit: Yes Status: Acute Causative organism: GCS and MSSA. Location: Right foot talus and navicularis. Likely secondary to right foot DFU. X-ray of the right foot completed 04/08/18 showed bony erosion of the talus and navicularis. ESR 106, CRP >300. Podiatry consulted and following. Status post I&D of the right ankle/foot, removal of hardware, and bone biopsy. Operative note was reviewed. Purulence noted Intra-Op adjacent to the hardware. Intraoperative cultures are positive for MSSA. Pathology positive for OM of the talus bone. Status post partial closure with wound VAC placement at the bedside on Sunday by Dr. Mercer. Wound care and activity restrictions as outlined by the podiatry team. Continue Rocephin 2 grams IV daily (day 14). Duration of treatment depends on the clinical picture, but likely 6 weeks of IV antibiotics. Continue to monitor renal function. Will need weekly CBC, BUN/Cr, ESR, CRP. Will need weekly IV care. Follow up with ID 05/09/18 at 0840. Qualifiers: Osteomyelitis type: other Osteomyelitis location: foot Laterality: right Qualified Code(s): M86.8X7 - Other osteomyelitis, ankle and foot (3) Abscess of right foot Current Visit: Yes Status: Acute Location: Right foot. Causative organism: GCS and MSSA. Status post I & D 04/09/[address] Mercer. Antibiotics as above. (4) YESENIA (acute kidney injury) Current Visit: Yes Status: Acute YESENIA on CKD. Urine output improved. Etiology unclear, but likely multifactorial: hypotension post-op, Vancomycin, dehydration Continue to trend. Nephrology consulted and following. HD initiated 04/13/18. RP UTS negative. Avoid additional nephrotoxins. Dose-adjust antibiotics as needed. (5) Diabetic foot ulcer Current Visit: Yes Status: Acute Etiology unclear. Podiatry consulted and following. Qualifiers: Diabetic foot ulcer location: heel Diabetes mellitus type: type 2 Laterality: right Non-pressure ulcer stage: unspecified non-pressure ulcer stage Qualified Code(s): E11.621 - Type 2 diabetes mellitus with foot ulcer; L97.419 - Non-pressure chronic ulcer of right heel and midfoot with unspecified severity (6) Charcot foot due to diabetes mellitus Current Visit: No Status: Acute Status post reconstruction 10/[address] Mercer. (7) HTN (hypertension) Current Visit: Yes Status: Chronic Qualifiers: Hypertension type: essential hypertension Qualified Code(s): I10 - Essential (primary) hypertension (8) DM2 (diabetes mellitus, type 2) Current Visit: Yes Status: Chronic Uncontrolled. HgbA1C 9.4%. Recommend aggressive glucose monitoring and control to promote wound healing and prevent re-infection. Management per the primary team. Qualifiers: Diabetes mellitus computer terminal operator insulin use: with computer terminal operator use Diabetes mellitus complication status: with hyperosmolarity Diabetes mellitus complication detail: without coma Qualified Code(s): E11.00 - Type 2 diabetes mellitus with hyperosmolarity without nonketotic hyperglycemic-hyperosmolar coma (NKHHC); Z79.4 - nursing home (current) use of insulin (9) Morbid obesity with BMI of 50.0-59.9, adult Current Visit: No Status: Acute - Subjective Interval history: Patient seen and examined. Doing great clinically. No complaints. No chest pain no shortness of breath no abdominal pain no diarrhea no urinary symptoms Infect Dis PN-Objective Data - Labs CBC & Chem 7: 04/29/18 08:17 04/29/18 08:17 Labs: Laboratory Results - last 24 hr 04/29/18 04/29/18 04/29/18 12:01 16:23 20:10 POC Glucose 131 H 247 H 211 H 04/30/18 04/30/18 07:16 11:48 POC Glucose 117 H 197 H Cultures: Cultures 04/09/18 23:09 Anaerobic Culture - Final Right Foot No anaerobes were recovered. 04/08/18 14:48 Blood Culture - Final Peripheral Venipuncture No growth. 04/09/18 23:09 Wound Culture - Final Right Foot Staphylococcus aureus Serology 04/17/18 04/13/18 04/11/18 Range/Units 04:45 09:42 14:50 Urine Color (Yellow) Urine Clarity (Clear) Urine pH (5.0-8.0) pH Units Ur Specific [place] (1.010-1.025) Urine Protein (Neg-Trace) mg/dL Urine Glucose (UA) (Normal) mg/dL Urine Ketones (Negative) mg/dL Urine Blood (Negative) Urine Nitrite (Negative) Urine Bilirubin (Negative) Urine Urobilinogen (Normal) mg/dL Ur Leukocyte Esterase (Negative) Urine Microscopic RBC (0-3) per hpf Urine Microscopic WBC (0-3) per hpf Ur Eosinophil Smear 0 (None Seen) % Ur Squamous Epith Cells (None-Few) per lpf Amorphous Sediment (Few) Urine Bacteria (None-Few) per hpf Hyaline Casts (None-Few) per lpf Urine Yeast Ur Culture Indicated? (NO) Urine Creatinine 140 mg/dL Protein/Creatinin Ratio 1.31 H (0.00-0.20) mg/mg Urine Sodium 35.9 mEq/L Urine Total Protein 184 H (1-14) mg/dL Hep Bs Antigen Nonreactive (Nonreactive) Hep Bs Antibody 0.95 mIU/mL 04/11/18 Range/Units 14:50 Urine Color Yellow (Yellow) Urine Clarity Turbid A (Clear) Urine pH 5.5 (5.0-8.0) pH Units Ur Specific [place] 1.020 (1.010-1.025) Urine Protein 100 H (Neg-Trace) mg/dL Urine Glucose (UA) 100 H (Normal) mg/dL Urine Ketones Negative (Negative) mg/dL Urine Blood Large H (Negative) Urine Nitrite Negative (Negative) Urine Bilirubin Negative (Negative) Urine Urobilinogen Normal (Normal) mg/dL Ur Leukocyte Esterase Negative (Negative) Urine Microscopic RBC 5-15 H (0-3) per hpf Urine Microscopic WBC 30-50 H (0-3) per hpf Ur Eosinophil Smear (None Seen) % Ur Squamous Epith Cells Many H (None-Few) per lpf Amorphous Sediment Moderate H (Few) Urine Bacteria None Seen (None-Few) per hpf Hyaline Casts None Seen (None-Few) per lpf Urine Yeast Test Not Performed Ur Culture Indicated? NO (NO) Urine Creatinine mg/dL Protein/Creatinin Ratio (0.00-0.20) mg/mg Urine Sodium mEq/L Urine Total Protein (1-14) mg/dL Hep Bs Antigen (Nonreactive) Hep Bs Antibody mIU/mL Exam - Constitutional Vitals: Temp Pulse Resp BP Pulse Ox 97.3 F L 63 16 139/82 91 04/30/18 10:46 04/30/18 10:46 04/30/18 10:46 04/30/18 10:46 04/30/18 10:46 - VTE Documentation of Mechanical Device: Intermittent pneumatic compression device Consult Discharge Plan - Plan Instructions: Diabetes Mellitus Type 2 in Adults (DC), Chronic Hypertension (DC ) Referrals: Russell Mercer DPM [Partnered Physician] - (In wound care clinic in 1 week after discharge) Agueda Rahman, LAB ASSISTANT [Advanced Practice Nurse] - 05/09/18 8:40 am Prescriptions: cefTRIAXone [Rocephin] 2,000 mg IVPB DAILY #32 vial Gabapentin [Neurontin] 100 mg PO BID #20 capsule Lisinopril [Zestril] 5 mg PO DAILY #30 tablet Tramadol HCl [Ultram] 50 mg PO QID PRN 5 Days #20 tablet PRN Reason: Mild Pain
[2018-04-30] MEDS: tiZANidine 4 MG TABLET PO SCH (21:33)
[2018-05-01] MEDS: *HR* Heparin 5,000 UNIT/ML VIAL SQ SCH ×2 (05:56→17:32)
[2018-05-01 06:55] LABS: Basophils % 0.6 %; Eosinophils # 0.3 K/mcL (0.0-0.6); Eosinophils % 6.2 %; Hematocrit 25.4 % (37.5-50.1); Hemoglobin 8.1 g/dL (12.9-16.9); Immature Granulocytes % 0.4 % (0-4); Lymphocytes # 1.3 K/mcL (0.6-4.6); Lymphocytes % 25.7 %; Mean Corpuscular HGB Conc 31.9 g/dL (31.6-35.5); Mean Corpuscular Hemoglobin 28.3 pg (28.0-33.3); Mean Corpuscular Volume 88.8 fL (83.0-100.0); Mean Platelet Volume 10.3 fL (9.4-12.4); Monocytes # 0.4 K/mcL (0.0-1.3); Monocytes % 8.8 %; Neutrophils # 2.9 K/mcL (1.6-8.9); Platelet Count 138 K/mcL (140-400); Red Blood Count 2.86 M/mcL (4.19-5.50); Red Cell Distribution Width 14.3 % (11.5-14.5); Segmented Neutrophils % 58.3 %
[2018-05-01 07:17] LABS: Calcium 9.2 mg/dL (8.6-10.3); Potassium 5.2 mEq/L (3.5-5.1)
[2018-05-01] MEDS ORDERED: 0.9 % Sodium Chloride 2,000 ML ONE (07:25)
[2018-05-01] MEDS: Insulin LISPRO 300 UNITS/3 ML VIAL SQ SCH ×7 (08:21→21:02)
[2018-05-01] MEDS: Cyanocobalamin (B-12) 1,000 MCG TABLET PO SCH (08:23)
[2018-05-01] MEDS: Gabapentin 100 MG CAPSULE PO SCH ×2 (08:24→20:47)
[2018-05-01] MEDS: ARIPiprazole 10 MG TABLET PO SCH (08:24)
[2018-05-01] MEDS: amLODIPine 5 MG TABLET PO SCH (08:25)
[2018-05-01] MEDS: Insulin DETEMIR 100 UNIT/ML X5UNITS SQ SCH ×2 (08:30→20:46)
[2018-05-01] MEDS ORDERED: 0.9 % Sodium Chloride 250 ML IVC PRN (08:50)
[2018-05-01] MEDS ORDERED: *HR* Heparin 10,000 UNIT/10 ML VIAL IV PRN (08:50)
[2018-05-01] MEDS ORDERED: 0.9 % Sodium Chloride 1,000 ML PRIME SCH (09:00)
[2018-05-01] MEDS ORDERED: *HR* Alteplase (Cathflo) 2 MG VIAL IVP ONE (11:13)
--- NOTE | 2018-05-01 11:54 | Internal Med Progress Note ---
Date of Encounter: 05/01/18 Time of Encounter: 11:55 - Assessment and plan (1) Acute on chronic renal failure Current Visit: Yes Status: Acute Assessment and plan: Hemodialysis per renal. Awaiting Medicaid approval for outpatient hemodialysis. Nephrology following. Qualifiers: Acute renal failure type: with acute tubular necrosis Chronic kidney disease stage: on chronic dialysis Qualified Code(s): N17.0 - Acute kidney failure with tubular necrosis; N18.9 - Chronic kidney disease, unspecified; Z99.2 - Dependence on renal dialysis (2) Osteomyelitis Current Visit: Yes Status: Acute Assessment and plan: Continue 2gm Rocephin daily. Complete 6 weeks antibiotic course. Awaiting set up of outpatient hemodialysis for discharge planning Qualifiers: Osteomyelitis type: other Osteomyelitis location: foot Laterality: right Qualified Code(s): M86.8X7 - Other osteomyelitis, ankle and foot (3) HTN (hypertension) Current Visit: Yes Status: Chronic Assessment and plan: fairly controlled. No changes to medication regimen Qualifiers: Hypertension type: essential hypertension Qualified Code(s): I10 - Essential (primary) hypertension (4) DM2 (diabetes mellitus, type 2) Current Visit: Yes Status: Chronic Assessment and plan: Improved control. Continue current insulin regimen Qualifiers: Diabetes mellitus usp insulin use: with usp use Diabetes mellitus complication status: with hyperosmolarity Diabetes mellitus complication detail: without coma Qualified Code(s): E11.00 - Type 2 diabetes mellitus with hyperosmolarity without nonketotic hyperglycemic-hyperosmolar coma (NKHHC); Z79.4 - terminal system operator (current) use of insulin (5) DVT prophylaxis Current Visit: Yes Status: Acute Assessment and plan: On subcutaneous heparin (6) Sepsis Current Visit: Yes Status: Resolved Assessment and plan: Due to MSSA and GCS and from osteomyelitis involving the right foot. On IV Rocephin. Qualifiers: Sepsis type: sepsis due to unspecified organism Qualified Code(s): A41.9 - Sepsis, unspecified organism - Time Spent With Patient Total time spent is greater than 50% in coordination of care (as documented) at patient's floor/unit and/or counseling patient: - Subjective Interval history: No acute events overnight - Constitutional Vitals: Temp Pulse Resp BP Pulse Ox 97.8 F 60 18 134/77 95 05/01/18 06:47 05/01/18 06:47 05/01/18 06:47 05/01/18 06:47 05/01/18 06:47 General appearance: Present: A&O X 3, morbidly obese, no acute distress, answers questions appropriately - Head Head exam: Present: atraumatic, normocephalic - Eye Eye exam: Present: PERRL, conjuntiva pink, sclera anicteric Pupils: Present: PERRL - Neck Neck exam general surgery: Present: supple, trachea midline. Absent: lymphadenopathy - Respiratory Respiratory exam: Present: CTAB. Absent: accessory muscle use, rales, rhonchi, wheezes - Cardiovascular Cardiovascular exam: Present: RRR, +S1, +S2. Absent: diastolic murmur, gallop, rubs, systolic murmur - GI/Abdominal GI/Abdominal exam: Present: normal bowel sounds, soft, no peritoneal signs. Absent: distended, tenderness - Extremities Exam Extremities exam: Present: warm, radial pulses palpable and symmetrical. Absent : calf tenderness, cyanotic, pedal edema - Neurological Exam Neurological exam: Present: CN II-XII intact, oriented X3, no focal deficits. Absent: pronater drift, facial droop, speech deficit - Skin Skin exam: Present: dry, intact Internal Medicine: Result - Labs CBC & Chem 7: 05/01/18 06:13 05/01/18 06:13 Labs: Short CBC 05/01/18 Range/Units 06:13 WBC 5.0 (4.3-11.1) K/mcL Hgb 8.1 L (12.9-16.9) g/dL Hct 25.4 L (37.5-50.1) % Plt Count 138 L (140-400) K/mcL Neutrophils # 2.9 (1.6-8.9) K/mcL BMP 05/01/18 06:13 Sodium 138 Potassium 5.2 H Chloride 104 Carbon Dioxide 25 BUN 57 H Creatinine 3.73 H Glucose 142 H Calcium 9.2 - ABG Interpretation ABG results: PT/INR, D-dimer PT 12.8 Seconds (9.4-12.1) H 04/08/18 11:37 - VTE Documentation of Mechanical Device: Intermittent pneumatic compression device Consult Discharge Plan - Plan Instructions: Diabetes Mellitus Type 2 in Adults (DC), Chronic Hypertension (DC ) Referrals: Russell Mercer DPM [Partnered Physician] - (In wound care clinic in 1 week after discharge) Agueda Rahman CNP [Advanced Practice Nurse] - 05/09/18 8:40 am Prescriptions: cefTRIAXone [Rocephin] 2,000 mg IVPB DAILY #32 vial Gabapentin [Neurontin] 100 mg PO BID #20 capsule Lisinopril [Zestril] 5 mg PO DAILY #30 tablet Tramadol HCl [Ultram] 50 mg PO QID PRN 5 Days #20 tablet PRN Reason: Mild Pain
--- NOTE | 2018-05-01 12:57 | Nephrology Progress Note ---
Date of Encounter: 05/01/18 Time of Encounter: 12:00 - Assessment and Plan (1) YESENIA (acute kidney injury) Current Visit: Yes Status: Acute No new labs today, will plan HD for tomorrow if needed UOP noted at 1225cc in the past 24hrs which is good Continue to avoid nephrotoxins if possible (2) Osteomyelitis Current Visit: Yes Status: Acute Per podiatry and primary team Qualifiers: Osteomyelitis type: other Osteomyelitis location: foot Laterality: right Qualified Code(s): M86.8X7 - Other osteomyelitis, ankle and foot (3) Sepsis Current Visit: Yes Status: Resolved ID on board Qualifiers: Sepsis type: sepsis due to unspecified organism Qualified Code(s): A41.9 - Sepsis, unspecified organism Subjective Principal diagnosis: RLE swelling/bleeding Interval history: Pt seen and examined with no new complaints, still awaiting medicaid papers before discharge to [facility] with HD outpatient. Objective - Vital Signs Vital signs: Vital Signs Temp Pulse Resp BP Pulse Ox 05/01/18 06:47 97.8 F 60 18 134/77 95 05/01/18 04:45 98.4 F 59 15 104/65 95 04/30/18 19:51 98.4 F 65 15 138/82 93 Intake and Output 04/30/18 05/01/18 05/01/18 23:59 07:59 15:59 Intake Total 0 / 0 0 / 0 Output Total 375 / 375 550 / 550 Balance -375 / -375 -550 / -550 Intake: Oral 0 / 0 0 / 0 Output: Urine 375 / 375 550 / 550 Other: Stool Size Small Stool Consistency soft Stool Characteristics Normal for Patient Stool Color Brown # Bowel Movements 1 Weight 177.9 kg Blood Glucose* 205 110 143 Patient Weight 05/01/18 23:59 Weight 177.9 kg - Lab 05/01/18 06:13 05/01/18 06:13 Most recent lab results Calcium 9.2 mg/dL (8.6-10.3) 05/01/18 06:13 Phosphorus 5.3 mg/dL (2.7-4.5) H 04/12/18 08:56 Magnesium 1.8 mg/dL (1.6-2.6) 04/12/18 08:56 Urine Creatinine 140 mg/dL 04/11/18 14:50 Urine Sodium 35.9 mEq/L 04/11/18 14:50 Urine Total Protein 184 mg/dL (1-14) H 04/11/18 14:50 - VTE Documentation of Mechanical Device: Intermittent pneumatic compression device Consult Discharge Plan - Plan Instructions: Diabetes Mellitus Type 2 in Adults (DC), Chronic Hypertension (DC ) Referrals: Russell Mercer DPM [Partnered Physician] - (In wound care clinic in 1 week after discharge) Agueda Rahman, EMBROIDERY SUPERVISOR [Advanced Practice Nurse] - 05/09/18 8:40 am Prescriptions: cefTRIAXone [Rocephin] 2,000 mg IVPB DAILY #32 vial Gabapentin [Neurontin] 100 mg PO BID #20 capsule Lisinopril [Zestril] 5 mg PO DAILY #30 tablet Tramadol HCl [Ultram] 50 mg PO QID PRN 5 Days #20 tablet PRN Reason: Mild Pain
--- NOTE | 2018-05-01 13:55 | Infectious Disease Progress No ---
Date of Encounter: 05/01/18 Time of Encounter: 13:54 - Assessment and Plan (1) Sepsis Current Visit: Yes Status: Resolved The patient had two SIRS criteria on admission. Likely secondary to right foot infection and OM. Resolved. Afebrile. WBC normalized. Blood cultures drawn 04/08/18 are negative x 2 sets. Qualifiers: Sepsis type: sepsis due to unspecified organism Qualified Code(s): A41.9 - Sepsis, unspecified organism (2) Osteomyelitis Current Visit: Yes Status: Acute Causative organism: GCS and MSSA. Location: Right foot talus and navicularis. Likely secondary to right foot DFU. X-ray of the right foot completed 04/08/18 showed bony erosion of the talus and navicularis. ESR 106, CRP >300. Podiatry consulted and following. Status post I&D of the right ankle/foot, removal of hardware, and bone biopsy. Operative note was reviewed. Purulence noted Intra-Op adjacent to the hardware. Intraoperative cultures are positive for MSSA. Pathology positive for OM of the talus bone. Status post partial closure with wound VAC placement at the bedside on Sunday by Dr. Mercer. Wound care and activity restrictions as outlined by the podiatry team. Continue Rocephin 2 grams IV daily (day 14). Duration of treatment depends on the clinical picture, but likely 6 weeks of IV antibiotics. Continue to monitor renal function. Will need weekly CBC, BUN/Cr, ESR, CRP. Will need weekly IV care. Follow up with ID 05/09/18 at 0840. Qualifiers: Osteomyelitis type: other Osteomyelitis location: foot Laterality: right Qualified Code(s): M86.8X7 - Other osteomyelitis, ankle and foot (3) Abscess of right foot Current Visit: Yes Status: Acute Location: Right foot. Causative organism: GCS and MSSA. Status post I & D 04/09/[address] Mercer. Antibiotics as above. (4) YESENIA (acute kidney injury) Current Visit: Yes Status: Acute YESENIA on CKD. Urine output improved. Etiology unclear, but likely multifactorial: hypotension post-op, Vancomycin, dehydration Continue to trend. Nephrology consulted and following. HD initiated 04/13/18. RP UTS negative. Avoid additional nephrotoxins. Dose-adjust antibiotics as needed. (5) Diabetic foot ulcer Current Visit: Yes Status: Acute Etiology unclear. Podiatry consulted and following. Qualifiers: Diabetic foot ulcer location: heel Diabetes mellitus type: type 2 Laterality: right Non-pressure ulcer stage: unspecified non-pressure ulcer stage Qualified Code(s): E11.621 - Type 2 diabetes mellitus with foot ulcer; L97.419 - Non-pressure chronic ulcer of right heel and midfoot with unspecified severity (6) Charcot foot due to diabetes mellitus Current Visit: No Status: Acute Status post reconstruction 10/[address] Mercer. (7) HTN (hypertension) Current Visit: Yes Status: Chronic Qualifiers: Hypertension type: essential hypertension Qualified Code(s): I10 - Essential (primary) hypertension (8) DM2 (diabetes mellitus, type 2) Current Visit: Yes Status: Chronic Uncontrolled. HgbA1C 9.4%. Recommend aggressive glucose monitoring and control to promote wound healing and prevent re-infection. Management per the primary team. Qualifiers: Diabetes mellitus rat exterminator insulin use: with rat exterminator use Diabetes mellitus complication status: with hyperosmolarity Diabetes mellitus complication detail: without coma Qualified Code(s): E11.00 - Type 2 diabetes mellitus with hyperosmolarity without nonketotic hyperglycemic-hyperosmolar coma (NKHHC); Z79.4 - care home (current) use of insulin (9) Morbid obesity with BMI of 50.0-59.9, adult Current Visit: No Status: Acute - Subjective Interval history: Patient seen and examined. Doing great clinically. No complaints. No chest pain no shortness of breath no abdominal pain no diarrhea no urinary symptoms Patient was seen and examined in dialysis. States that he is feeling great. Infect Dis PN-Objective Data - Labs CBC & Chem 7: 05/01/18 06:13 05/01/18 06:13 Labs: Laboratory Results - last 24 hr 04/30/18 04/30/18 05/01/18 17:16 21:02 06:13 WBC 5.0 RBC 2.86 L Hgb 8.1 L Hct 25.4 L MCV 88.8 MCH 28.3 MCHC 31.9 RDW 14.3 Plt Count 138 L MPV 10.3 Immature Gran % 0.4 Seg Neutrophils % 58.3 Lymphocytes % 25.7 Monocytes % 8.8 Eosinophils % 6.2 Basophils % 0.6 Neutrophils # 2.9 Lymphocytes # 1.3 Monocytes # 0.4 Eosinophils # 0.3 Basophils # 0.0 Sodium Potassium Chloride Carbon Dioxide BUN Creatinine Est GFR ( Amer) Est GFR (Non-Af Amer) BUN/Creatinine Ratio Glucose POC Glucose 218 H 205 H Calculated Osmolality Calcium 05/01/18 05/01/18 06:13 07:26 WBC RBC Hgb Hct MCV MCH MCHC RDW Plt Count MPV Immature Gran % Seg Neutrophils % Lymphocytes % Monocytes % Eosinophils % Basophils % Neutrophils # Lymphocytes # Monocytes # Eosinophils # Basophils # Sodium 138 Potassium 5.2 H Chloride 104 Carbon Dioxide 25 BUN 57 H Creatinine 3.73 H Est GFR ( Amer) 21 L Est GFR (Non-Af Amer) 17 L BUN/Creatinine Ratio 15 Glucose 142 H POC Glucose 127 H Calculated Osmolality 304 H Calcium 9.2 Cultures: Cultures 04/09/18 23:09 Anaerobic Culture - Final Right Foot No anaerobes were recovered. 04/08/18 14:48 Blood Culture - Final Peripheral Venipuncture No growth. 04/09/18 23:09 Wound Culture - Final Right Foot Staphylococcus aureus Serology 04/17/18 04/13/18 04/11/18 Range/Units 04:45 09:42 14:50 Urine Color (Yellow) Urine Clarity (Clear) Urine pH (5.0-8.0) pH Units Ur Specific [place] (1.010-1.025) Urine Protein (Neg-Trace) mg/dL Urine Glucose (UA) (Normal) mg/dL Urine Ketones (Negative) mg/dL Urine Blood (Negative) Urine Nitrite (Negative) Urine Bilirubin (Negative) Urine Urobilinogen (Normal) mg/dL Ur Leukocyte Esterase (Negative) Urine Microscopic RBC (0-3) per hpf Urine Microscopic WBC (0-3) per hpf Ur Eosinophil Smear 0 (None Seen) % Ur Squamous Epith Cells (None-Few) per lpf Amorphous Sediment (Few) Urine Bacteria (None-Few) per hpf Hyaline Casts (None-Few) per lpf Urine Yeast Ur Culture Indicated? (NO) Urine Creatinine 140 mg/dL Protein/Creatinin Ratio 1.31 H (0.00-0.20) mg/mg Urine Sodium 35.9 mEq/L Urine Total Protein 184 H (1-14) mg/dL Hep Bs Antigen Nonreactive (Nonreactive) Hep Bs Antibody 0.95 mIU/mL 04/11/18 Range/Units 14:50 Urine Color Yellow (Yellow) Urine Clarity Turbid A (Clear) Urine pH 5.5 (5.0-8.0) pH Units Ur Specific [place] 1.020 (1.010-1.025) Urine Protein 100 H (Neg-Trace) mg/dL Urine Glucose (UA) 100 H (Normal) mg/dL Urine Ketones Negative (Negative) mg/dL Urine Blood Large H (Negative) Urine Nitrite Negative (Negative) Urine Bilirubin Negative (Negative) Urine Urobilinogen Normal (Normal) mg/dL Ur Leukocyte Esterase Negative (Negative) Urine Microscopic RBC 5-15 H (0-3) per hpf Urine Microscopic WBC 30-50 H (0-3) per hpf Ur Eosinophil Smear (None Seen) % Ur Squamous Epith Cells Many H (None-Few) per lpf Amorphous Sediment Moderate H (Few) Urine Bacteria None Seen (None-Few) per hpf Hyaline Casts None Seen (None-Few) per lpf Urine Yeast Test Not Performed Ur Culture Indicated? NO (NO) Urine Creatinine mg/dL Protein/Creatinin Ratio (0.00-0.20) mg/mg Urine Sodium mEq/L Urine Total Protein (1-14) mg/dL Hep Bs Antigen (Nonreactive) Hep Bs Antibody mIU/mL Exam - Constitutional Vitals: Temp Pulse Resp BP Pulse Ox 97.8 F 60 18 134/77 95 05/01/18 06:47 05/01/18 06:47 05/01/18 06:47 05/01/18 06:47 05/01/18 06:47 General appearance: no acute distress, no febrile - Respiratory Respiratory exam: Present: CTAB. Absent: wheezes - Cardiovascular Cardiovascular exam: Present: RRR, +S1 - GI/Abdominal GI/Abdominal exam: Present: normal bowel sounds, soft. Absent: tenderness - VTE Documentation of Mechanical Device: Intermittent pneumatic compression device Consult Discharge Plan - Plan Instructions: Diabetes Mellitus Type 2 in Adults (DC), Chronic Hypertension (DC ) Referrals: Russell Mercer DPM [Partnered Physician] - (In wound care clinic in 1 week after discharge) Agueda Rahman, NUCLEAR MEDICINE SPECIALIST [Advanced Practice Nurse] - 05/09/18 8:40 am Prescriptions: cefTRIAXone [Rocephin] 2,000 mg IVPB DAILY #32 vial Gabapentin [Neurontin] 100 mg PO BID #20 capsule Lisinopril [Zestril] 5 mg PO DAILY #30 tablet Tramadol HCl [Ultram] 50 mg PO QID PRN 5 Days #20 tablet PRN Reason: Mild Pain
[2018-05-01] MEDS: cefTRIAXone 2,000 MG in Water for inj. (sterile) 20 ML 20 ML IVP SCH (17:30)
[2018-05-01] MEDS: tiZANidine 4 MG TABLET PO SCH (20:47)
[2018-05-02 05:38] LABS: Basophils % 0.8 %; Eosinophils # 0.4 K/mcL (0.0-0.6); Hematocrit 25.9 % (37.5-50.1); Hemoglobin 8.3 g/dL (12.9-16.9); Immature Granulocytes % 0.6 % (0-4); Lymphocytes # 1.4 K/mcL (0.6-4.6); Lymphocytes % 27.7 %; Mean Corpuscular Hemoglobin 28.5 pg (28.0-33.3); Mean Platelet Volume 10.5 fL (9.4-12.4); Monocytes # 0.5 K/mcL (0.0-1.3); Neutrophils # 2.8 K/mcL (1.6-8.9); Platelet Count 118 K/mcL (140-400); Red Blood Count 2.91 M/mcL (4.19-5.50); Red Cell Distribution Width 14.3 % (11.5-14.5); Segmented Neutrophils % 54.9 %
[2018-05-02] MEDS: *HR* Heparin 5,000 UNIT/ML VIAL SQ SCH ×2 (05:47→18:02)
[2018-05-02 05:50] LABS: Calcium 9.2 mg/dL (8.6-10.3); Potassium 5.3 mEq/L (3.5-5.1)
[2018-05-02] MEDS: Insulin LISPRO 300 UNITS/3 ML VIAL SQ SCH ×7 (09:43→21:26)
[2018-05-02] MEDS: Insulin DETEMIR 100 UNIT/ML X5UNITS SQ SCH ×2 (10:38→21:26)
[2018-05-02] MEDS: ARIPiprazole 10 MG TABLET PO SCH (10:38)
[2018-05-02] MEDS: amLODIPine 5 MG TABLET PO SCH (10:39)
[2018-05-02] MEDS: Gabapentin 100 MG CAPSULE PO SCH ×2 (10:39→21:26)
[2018-05-02] MEDS: Cyanocobalamin (B-12) 1,000 MCG TABLET PO SCH (10:39)
--- NOTE | 2018-05-02 10:59 | Internal Med Progress Note ---
Date of Encounter: 05/02/18 Time of Encounter: 11:00 - Assessment and plan (1) Sepsis Current Visit: Yes Status: Resolved Assessment and plan: Due to MSSA and GCS and from osteomyelitis involving the right foot. On IV Rocephin. To complete 6 week course Qualifiers: Sepsis type: methicillin susceptible Staphylococcus aureus Qualified Code(s ): A41.01 - Sepsis due to Methicillin susceptible Staphylococcus aureus (2) Acute on chronic renal failure Current Visit: Yes Status: Acute Assessment and plan: Hemodialysis per renal. Awaiting Medicaid approval for outpatient hemodialysis. Nephrology following. Qualifiers: Acute renal failure type: with acute tubular necrosis Chronic kidney disease stage: on chronic dialysis Qualified Code(s): N17.0 - Acute kidney failure with tubular necrosis; N18.9 - Chronic kidney disease, unspecified; Z99.2 - Dependence on renal dialysis (3) Osteomyelitis Current Visit: Yes Status: Acute Assessment and plan: Continue 2gm Rocephin daily. Complete 6 weeks antibiotic course. Awaiting set up of outpatient hemodialysis for discharge planning Qualifiers: Osteomyelitis type: other Osteomyelitis location: foot Laterality: right Qualified Code(s): M86.8X7 - Other osteomyelitis, ankle and foot (4) HTN (hypertension) Current Visit: Yes Status: Chronic Assessment and plan: fairly controlled. No changes to medication regimen Qualifiers: Hypertension type: essential hypertension Qualified Code(s): I10 - Essential (primary) hypertension (5) DM2 (diabetes mellitus, type 2) Current Visit: Yes Status: Chronic Assessment and plan: Improved control. Continue current insulin regimen Qualifiers: Diabetes mellitus group home insulin use: with terminal operations manager use Diabetes mellitus complication status: with hyperosmolarity Diabetes mellitus complication detail: without coma Qualified Code(s): E11.00 - Type 2 diabetes mellitus with hyperosmolarity without nonketotic hyperglycemic-hyperosmolar coma (NKHHC); Z79.4 - alf (current) use of insulin (6) DVT prophylaxis Current Visit: Yes Status: Acute Assessment and plan: On subcutaneous heparin - Time Spent With Patient Total time spent is greater than 50% in coordination of care (as documented) at patient's floor/unit and/or counseling patient: - Subjective Interval history: No acute events overnight - Constitutional Vitals: Temp Pulse Resp BP Pulse Ox 97.4 F L 61 18 136/78 93 05/02/18 06:36 05/02/18 06:36 05/02/18 06:36 05/02/18 06:36 05/02/18 06:36 General appearance: Present: A&O X 3, morbidly obese, no acute distress, answers questions appropriately - Head Head exam: Present: atraumatic, normocephalic - Eye Eye exam: Present: PERRL, conjuntiva pink, sclera anicteric Pupils: Present: PERRL - Neck Neck exam general surgery: Present: supple, trachea midline. Absent: lymphadenopathy - Respiratory Respiratory exam: Present: CTAB. Absent: accessory muscle use, rales, rhonchi, wheezes - Cardiovascular Cardiovascular exam: Present: RRR, +S1, +S2. Absent: diastolic murmur, gallop, rubs, systolic murmur - GI/Abdominal GI/Abdominal exam: Present: normal bowel sounds, soft, no peritoneal signs. Absent: distended, tenderness - Extremities Exam Extremities exam: Present: warm, radial pulses palpable and symmetrical. Absent : calf tenderness, cyanotic, pedal edema - Neurological Exam Neurological exam: Present: CN II-XII intact, oriented X3, no focal deficits. Absent: pronater drift, facial droop, speech deficit - Skin Skin exam: Present: dry, intact Internal Medicine: Result - Labs CBC & Chem 7: 05/02/18 05:17 05/02/18 05:17 Labs: Short CBC 05/02/18 Range/Units 05:17 WBC 5.1 (4.3-11.1) K/mcL Hgb 8.3 L (12.9-16.9) g/dL Hct 25.9 L (37.5-50.1) % Plt Count 118 L (140-400) K/mcL Neutrophils # 2.8 (1.6-8.9) K/mcL BMP 05/02/18 05:17 Sodium 136 Potassium 5.3 H Chloride 103 Carbon Dioxide 26 BUN 50 H Creatinine 3.66 H Glucose 177 H Calcium 9.2 - ABG Interpretation ABG results: PT/INR, D-dimer PT 12.8 Seconds (9.4-12.1) H 04/08/18 11:37 - VTE Documentation of Mechanical Device: Intermittent pneumatic compression device Consult Discharge Plan - Plan Instructions: Diabetes Mellitus Type 2 in Adults (DC), Chronic Hypertension (DC ) Referrals: Russell Mercer DPM [Partnered Physician] - (In wound care clinic in 1 week after discharge) Agueda Rahman FLAT LOCK OPERATOR [Advanced Practice Nurse] - 05/09/18 8:40 am Prescriptions: cefTRIAXone [Rocephin] 2,000 mg IVPB DAILY #32 vial Gabapentin [Neurontin] 100 mg PO BID #20 capsule Lisinopril [Zestril] 5 mg PO DAILY #30 tablet Tramadol HCl [Ultram] 50 mg PO QID PRN 5 Days #20 tablet PRN Reason: Mild Pain
--- NOTE | 2018-05-02 11:07 | Nephrology Progress Note ---
Date of Encounter: 05/02/18 Time of Encounter: 11:04 - Assessment and Plan (1) YESENIA (acute kidney injury) Current Visit: Yes Status: Acute Kidney function stable at 3.66 and GFR 18 UOP 1000ml Permacath not running well. Will make NPO at midnight tonight in anticipation of permacath exchange but waiting to see what the Scr and GFR tomorrow (order for NPO placed) According to social insurance analyst note today patient's insurance was verified and they will call tomorrow to get patient a chair time at [facility] Avoid nephrotoxins if possible (2) Abscess of right foot Current Visit: Yes Status: Acute per podiatry team (3) Diabetic foot ulcer Current Visit: Yes Status: Acute per podiatry team Qualifiers: Diabetic foot ulcer location: heel Diabetes mellitus type: type 2 Laterality: right Non-pressure ulcer stage: unspecified non-pressure ulcer stage Qualified Code(s): E11.621 - Type 2 diabetes mellitus with foot ulcer; L97.419 - Non-pressure chronic ulcer of right heel and midfoot with unspecified severity Subjective Principal diagnosis: RLE swelling/bleeding Interval history: Patient seen and examined, states he is feeling well today. Objective - Vital Signs Vital signs: Vital Signs Temp Pulse Resp BP Pulse Ox 05/02/18 06:36 97.4 F L 61 18 136/78 93 05/02/18 04:58 98.0 F 59 16 99/63 92 05/01/18 20:25 98.6 F 64 16 100/64 95 05/01/18 15:11 98.6 F 69 16 122/67 94 05/01/18 14:40 97.7 F 20 121/68 05/01/18 13:40 111/64 05/01/18 13:25 105/59 05/01/18 13:10 117/62 05/01/18 12:55 113/60 05/01/18 12:40 111/64 05/01/18 12:25 113/59 05/01/18 12:10 105/58 05/01/18 11:55 109/55 05/01/18 11:35 92/61 05/01/18 11:20 140/62 05/01/18 11:05 132/70 Intake and Output 06/20/18 06/21/18 06/21/18 23:59 07:59 15:59 Intake Total 800 / 800 200 / 200 240 / 240 Output Total 450 / 450 350 / 350 Balance 350 / 350 -150 / -150 240 / 240 Intake: Oral 800 / 800 200 / 200 240 / 240 Output: Urine 450 / 450 350 / 350 Other: Meal Dinner Breakfast Percent of Meal Consumed 100% 100% # Bowel Movements 0 Weight 176.5 kg Blood Glucose* 179 136 Patient Weight 05/02/18 23:59 Weight 176.5 kg - General Appearance General appearance: Present: obese EENT: Present: ATNC, mucous membranes moist, hearing intact, vision intact Neck: Present: supple Respiratory: Present: clear Cardiology: Present: edema (minimal BLL edema), normal S1, normal S2 Dialysis Vascular Access: Venous Catheter Gastrointestinal: Present: no tenderness, no guarding, obese Integumentary: Present: warm and dry Neurologic: Present: alert and oriented x3 Psychiatric: Present: mood/affect appropriate, cooperative - Lab 05/02/18 05:17 05/02/18 05:17 Most recent lab results Calcium 9.2 mg/dL (8.6-10.3) 05/02/18 05:17 Phosphorus 5.3 mg/dL (2.7-4.5) H 04/12/18 08:56 Magnesium 1.8 mg/dL (1.6-2.6) 04/12/18 08:56 Urine Creatinine 140 mg/dL 04/11/18 14:50 Urine Sodium 35.9 mEq/L 04/11/18 14:50 Urine Total Protein 184 mg/dL (1-14) H 04/11/18 14:50 - VTE Documentation of Mechanical Device: Intermittent pneumatic compression device Consult Discharge Plan - Plan Instructions: Diabetes Mellitus Type 2 in Adults (DC), Chronic Hypertension (DC ) Referrals: Russell Mercer DPM [Partnered Physician] - (In wound care clinic in 1 week after discharge) Agueda Rahman SYNTHETIC CHEMIST [Advanced Practice Nurse] - 05/09/18 8:40 am Prescriptions: cefTRIAXone [Rocephin] 2,000 mg IVPB DAILY #32 vial Gabapentin [Neurontin] 100 mg PO BID #20 capsule Lisinopril [Zestril] 5 mg PO DAILY #30 tablet Tramadol HCl [Ultram] 50 mg PO QID PRN 5 Days #20 tablet PRN Reason: Mild Pain
[2018-05-02] MEDS: cefTRIAXone 2,000 MG in Water for inj. (sterile) 20 ML 20 ML IVP SCH (18:02)
[2018-05-02] MEDS: tiZANidine 4 MG TABLET PO SCH (21:26)
[2018-05-03 06:00] LABS: Basophils # 0.1 K/mcL (0.0-0.2); Basophils % 1.1 %; Eosinophils # 0.3 K/mcL (0.0-0.6); Eosinophils % 7.5 %; Hemoglobin 7.7 g/dL (12.9-16.9); Immature Granulocytes % 0.9 % (0-4); Lymphocytes # 1.2 K/mcL (0.6-4.6); Lymphocytes % 27.3 %; Mean Corpuscular HGB Conc 30.8 g/dL (31.6-35.5); Mean Corpuscular Hemoglobin 27.5 pg (28.0-33.3); Mean Corpuscular Volume 89.3 fL (83.0-100.0); Monocytes # 0.4 K/mcL (0.0-1.3); Monocytes % 9.8 %; Neutrophils # 2.4 K/mcL (1.6-8.9); Platelet Count 153 K/mcL (140-400); Red Cell Distribution Width 14.1 % (11.5-14.5); Segmented Neutrophils % 53.4 %
[2018-05-03] MEDS: *HR* Heparin 5,000 UNIT/ML VIAL SQ SCH (06:06)
[2018-05-03 06:16] LABS: Calcium 9.3 mg/dL (8.6-10.3); Potassium 5.3 mEq/L (3.5-5.1)
[2018-05-03] MEDS ORDERED: 0.9 % Sodium Chloride 1,000 ML ONE ×2 (07:22→11:52)
[2018-05-03] MEDS ORDERED: 0.9 % Sodium Chloride 250 ML IVC PRN (07:35)
[2018-05-03] MEDS ORDERED: *HR* Heparin 10,000 UNIT/10 ML VIAL IV PRN (07:35)
[2018-05-03] MEDS ORDERED: 0.9 % Sodium Chloride 1,000 ML PRIME SCH (07:45)
[2018-05-03] MEDS: Insulin LISPRO 300 UNITS/3 ML VIAL SQ SCH ×2 (08:01)
[2018-05-03] MEDS ORDERED: Heparin 1,000 UNITS/500 mL 500 ML ONE (08:36)
[2018-05-03] MEDS ORDERED: *HR* Heparin 5,000 UNIT/ML VIAL ONE ×3 (09:33→10:57)
--- NOTE | 2018-05-03 09:58 | IR Procedure Note ---
Date of procedure: 05/03/18 Consent Obtained: Written consent Timeout: Correct patient and procedure verified, Correct site verified, Time out performed, Skin prep completed Local anesthetic: Lidocaine 1% Indications: Poorly functioning HD catheter Procedure Performed: HD catheter exchange over a wire Was there an executive marketing assistant present: No Site/Technique: RIJV. 23cm cath exchanged for a 28cm catheter. Red port was cephalad, Results/Findings: so that was switched as well to blue. New cath aspirating well today. Estimated blood loss (cc): 1 Complications: None; Tolerated procedure well Post Procedure Treatment Plan: Monitoring in pts room Specimen: n/a
--- NOTE | 2018-05-03 11:20 | Nephrology Progress Note ---
Date of Encounter: 05/03/18 Time of Encounter: 11:18 - Assessment and Plan (1) YESENIA (acute kidney injury) Current Visit: Yes Status: Acute HD MWF. Renal vitamins. Renal dose medications. Renal diet. Additional dialysis and ultrafiltration as needed. Patient was seen while on dialysis. Subjective Principal diagnosis: RLE swelling/bleeding Interval history: Patient was seen while in dialysis. He has no new complaints. He is anticipating going home today. Objective - Vital Signs Vital signs: Vital Signs Temp Pulse Resp BP Pulse Ox 05/03/18 07:13 97.6 F 69 16 126/80 93 05/03/18 03:28 97.5 F L 59 16 131/73 92 05/03/18 00:38 98.5 F 57 16 104/67 93 05/02/18 19:08 98.2 F 73 17 116/70 95 05/02/18 14:38 97.2 F L 74 18 129/78 97 Intake and Output 05/02/18 05/03/18 05/03/18 23:59 07:59 15:59 Intake Total 0 / 0 0 / 0 0 / 0 Output Total 400 / 400 0 / 0 525 / 525 Balance -400 / -400 0 / 0 -525 / -525 Intake: Oral 0 / 0 0 / 0 0 / 0 Output: Urine 400 / 400 0 / 0 525 / 525 Other: Meal NPO Percent of Meal Consumed 0% Blood Glucose* 210 130 - General Appearance General appearance: Present: well-developed, well-nourished, obese EENT: Present: ATNC Neurologic: Present: alert and oriented x3 Psychiatric: Present: mood/affect appropriate - Lab 05/03/18 05:36 05/03/18 05:36 Most recent lab results Calcium 9.3 mg/dL (8.6-10.3) 05/03/18 05:36 Phosphorus 5.3 mg/dL (2.7-4.5) H 04/12/18 08:56 Magnesium 1.8 mg/dL (1.6-2.6) 04/12/18 08:56 Urine Creatinine 140 mg/dL 04/11/18 14:50 Urine Sodium 35.9 mEq/L 04/11/18 14:50 Urine Total Protein 184 mg/dL (1-14) H 04/11/18 14:50 - VTE Documentation of Mechanical Device: Intermittent pneumatic compression device Consult Discharge Plan - Plan Instructions: Diabetes Mellitus Type 2 in Adults (DC), Chronic Hypertension (DC ) Referrals: Russell Mercer DPM [Partnered Physician] - (In wound care clinic in 1 week after discharge) Agueda Rahman, SENIOR OPERATOR [Advanced Practice Nurse] - 05/09/18 8:40 am Prescriptions: cefTRIAXone [Rocephin] 2,000 mg IVPB DAILY #32 vial Gabapentin [Neurontin] 100 mg PO BID #20 capsule Lisinopril [Zestril] 5 mg PO DAILY #30 tablet Tramadol HCl [Ultram] 50 mg PO QID PRN 5 Days #20 tablet PRN Reason: Mild Pain
--- NOTE | 2018-05-03 13:03 | Internal Med Progress Note ---
Date of Encounter: 05/03/18 Time of Encounter: 13:00 - Assessment and plan (1) Sepsis Current Visit: Yes Status: Resolved Assessment and plan: Due to MSSA and GCS and from osteomyelitis involving the right foot. On IV Rocephin. To complete 6 week course Qualifiers: Sepsis type: methicillin susceptible Staphylococcus aureus Qualified Code(s ): A41.01 - Sepsis due to Methicillin susceptible Staphylococcus aureus (2) Acute on chronic renal failure Current Visit: Yes Status: Acute Assessment and plan: Hemodialysis per renal. Awaiting Medicaid approval for outpatient hemodialysis. Nephrology following. Qualifiers: Acute renal failure type: with acute tubular necrosis Chronic kidney disease stage: on chronic dialysis Qualified Code(s): N17.0 - Acute kidney failure with tubular necrosis; N18.9 - Chronic kidney disease, unspecified; Z99.2 - Dependence on renal dialysis (3) Osteomyelitis Current Visit: Yes Status: Acute Assessment and plan: Continue 2gm Rocephin daily. Complete 6 weeks antibiotic course. Awaiting set up of outpatient hemodialysis for discharge planning Qualifiers: Osteomyelitis type: other Osteomyelitis location: foot Laterality: right Qualified Code(s): M86.8X7 - Other osteomyelitis, ankle and foot (4) HTN (hypertension) Current Visit: Yes Status: Chronic Assessment and plan: fairly controlled. No changes to medication regimen Qualifiers: Hypertension type: essential hypertension Qualified Code(s): I10 - Essential (primary) hypertension (5) DM2 (diabetes mellitus, type 2) Current Visit: Yes Status: Chronic Assessment and plan: Improved control. Continue current insulin regimen Qualifiers: Diabetes mellitus correction insulin use: with shrimp cleaner use Diabetes mellitus complication status: with hyperosmolarity Diabetes mellitus complication detail: without coma Qualified Code(s): E11.00 - Type 2 diabetes mellitus with hyperosmolarity without nonketotic hyperglycemic-hyperosmolar coma ([facility]); Z79.4 - retirement (current) use of insulin (6) DVT prophylaxis Current Visit: Yes Status: Acute Assessment and plan: On subcutaneous heparin - Time Spent With Patient Total time spent is greater than 50% in coordination of care (as documented) at patient's floor/unit and/or counseling patient: - Subjective Interval history: No acute events overnight - Constitutional Vitals: Temp Pulse Resp BP Pulse Ox 97.5 F L 75 17 111/60 93 05/03/18 12:30 05/03/18 12:30 05/03/18 12:30 05/03/18 12:30 05/03/18 07:13 General appearance: Present: A&O X 3, morbidly obese, no acute distress, answers questions appropriately - Head Head exam: Present: atraumatic, normocephalic - Eye Eye exam: Present: PERRL, conjuntiva pink, sclera anicteric Pupils: Present: PERRL - Neck Neck exam general surgery: Present: supple, trachea midline. Absent: lymphadenopathy - Respiratory Respiratory exam: Present: CTAB. Absent: accessory muscle use, rales, rhonchi, wheezes - Cardiovascular Cardiovascular exam: Present: RRR, +S1, +S2. Absent: diastolic murmur, gallop, rubs, systolic murmur - GI/Abdominal GI/Abdominal exam: Present: normal bowel sounds, soft, no peritoneal signs. Absent: distended, tenderness - Extremities Exam Extremities exam: Present: warm, radial pulses palpable and symmetrical. Absent : calf tenderness, cyanotic, pedal edema - Neurological Exam Neurological exam: Present: CN II-XII intact, oriented X3, no focal deficits. Absent: pronater drift, facial droop, speech deficit - Skin Skin exam: Present: dry, intact Internal Medicine: Result - Labs CBC & Chem 7: 05/03/18 05:36 05/03/18 05:36 Labs: Short CBC 05/03/18 Range/Units 05:36 WBC 4.5 (4.3-11.1) K/mcL Hgb 7.7 L (12.9-16.9) g/dL Hct 25.0 L (37.5-50.1) % Plt Count 153 (140-400) K/mcL Neutrophils # 2.4 (1.6-8.9) K/mcL BMP 05/03/18 05:36 Sodium 137 Potassium 5.3 H Chloride 103 Carbon Dioxide 28 BUN 57 H Creatinine 3.89 H Glucose 126 H Calcium 9.3 - ABG Interpretation ABG results: PT/INR, D-dimer PT 12.8 Seconds (9.4-12.1) H 04/08/18 11:37 - Impressions Impressions Catheter Change 05/03/18 00:00 IMPRESSION: Successful fluoroscopic guided exchange of a tunneled dialysis catheter which may be used immediately. D/ / Soy Morales MD / Soy Morales MD Interpreting Provider: Syo Morales MD - VTE Documentation of Mechanical Device: Intermittent pneumatic compression device Consult Discharge Plan - Plan Instructions: Diabetes Mellitus Type 2 in Adults (DC), Chronic Hypertension (DC ) Referrals: Russell Mercer DPM [Partnered Physician] - (In wound care clinic in 1 week after discharge) Agueda Rahman LEATHER ROLLER [Advanced Practice Nurse] - 05/09/18 8:40 am Prescriptions: cefTRIAXone [Rocephin] 2,000 mg IVPB DAILY #32 vial Gabapentin [Neurontin] 100 mg PO BID #20 capsule Lisinopril [Zestril] 5 mg PO DAILY #30 tablet Tramadol HCl [Ultram] 50 mg PO QID PRN 5 Days #20 tablet PRN Reason: Mild Pain
[2018-05-03 15:10] VITALS: BP 114/74
--- NOTE | 2018-05-03 16:00 | Physician Discharge Referral ---
- Diagnosis (1) Sepsis Priority: Primary Status: Resolved (2) Osteomyelitis Status: Acute (3) Acute on chronic renal failure Status: Acute (4) HTN (hypertension) Status: Chronic (5) DM2 (diabetes mellitus, type 2) Status: Chronic (6) DVT prophylaxis Status: Acute - Transfer Medications Prescriptions: cefTRIAXone [Rocephin] 2,000 mg IVPB DAILY #32 vial Gabapentin [Neurontin] 100 mg PO BID #20 capsule Lisinopril [Zestril] 5 mg PO DAILY #30 tablet Tramadol HCl [Ultram] 50 mg PO QID PRN 5 Days #20 tablet PRN Reason: Mild Pain Home Medications: Cetirizine HCl [24Hour Allergy] 10 mg PO DAILY PRN 01/19/17 [History] Insulin Glargine [Lantus] 45 unit SQ BID 01/19/17 [History] ARIPiprazole [Abilify] 10 mg PO DAILY 07/27/17 [History] Buspirone HCl [Buspar] 30 mg PO BID 07/27/17 [History] Glimepiride [Amaryl] 4 mg PO DAILY 07/27/17 [History] PARoxetine HCl [Paroxetine HCl] 40 mg PO DAILY 07/27/17 [History] Allopurinol [Zyloprim 100 MG] 100 mg PO DAILY tablet 11/07/17 [Rx] Cyanocobalamin (B-12) [Vitamin B12] 1,000 mcg PO DAILY tablet 11/07/17 [Rx] Gabapentin [Neurontin] 400 mg PO TID 30 Days #90 capsule 11/07/17 [Rx] Ergocalciferol (VITAMIN D2) [Drisdol (50,000 Unit)] 50,000 unit PO TU 04/08/18 [ History] Insulin ASPART [Novolog Flexpen] 15 - 25 unit SQ TIDWM 04/08/18 [History] Metoprolol Succinate [Toprol Xl] 50 mg PO DAILY 04/08/18 [History] Tizanidine HCl [Zanaflex] 4 mg PO HS PRN 04/22/18 [History] Albuterol Neb [Proventil Neb] 2.5 mg IH [id number] PRN inhsol 04/24/18 [Rx] Gabapentin [Neurontin] 100 mg PO BID #20 capsule 04/24/18 [Rx] Tramadol HCl [Ultram] 50 mg PO QID PRN 5 Days #20 tablet 04/24/18 [Rx] amLODIPine [Norvasc] 10 mg PO DAILY tablet 04/24/18 [Rx] cefTRIAXone [Rocephin] 2,000 mg IVPB DAILY #32 vial 04/24/18 [Rx] Lisinopril [Zestril] 5 mg PO DAILY #30 tablet 04/26/18 [Rx] Allergies/Adverse Reactions: 3 Allergy/AdvReac Type Severity Reaction Status Date / Time No Known Allergies Allergy Verified 11/02/17 10:48 - Respiratory Orders Smoking Cessation: Smoking cessation has been advised. For more information, call the [place] Tobacco Quit Line at 5-771-WBFT-NOW. - Rehabiliation Orders Rehab Potential: Good CERTIFICATION: I certify that the transfer of the above named patient to an Extended Care Facility is necessary for the continuing treatment of the diagnosis listed. The above information is true and accurate reflection of patient's current condition. Confidential - Redisclosure prohibited without a patient's written consent.
--- NOTE | 2018-05-03 16:00 | Discharge Summary ---
Orders not resulted at time of discharge: Pending orders 04/10/18 XR fluoroscopy <1 hr [XR] Routine 05/03/18 10:39 Red Blood Cells [BBK] Stat Type and Screen [BBK] Stat 05/04/18 04:00 Basic Metabolic Panel AM 0400 CBC [Complete Blood Count] [HEME] AM 0400 05/05/18 04:00 Basic Metabolic Panel AM 0400 CBC [Complete Blood Count] [HEME] AM 0400 05/06/18 04:00 Basic Metabolic Panel AM 0400 CBC [Complete Blood Count] [HEME] AM 0400 Date of Encounter: 05/03/18 Time of Encounter: 16:00 - Discharge Diagnosis (1) Sepsis Priority: Primary Status: Resolved Assessment and Plan: Mr. Bowen is a 47 year old male patient with history of chronic kidney disease , hypertension, diabetes, his right foot Charcot arthropathy who was hospitalized here with infection of his right foot ulcer. Patient had been evaluated with podiatry multiple times in the past. He was again seen by podiatry here was placed on antibiotics intravenously for wound infection and sepsis. He then underwent surgery with incision and drainage of right ankle/ foot and removal of right ankle/foot hardware along with bone biopsy of the talus and navicular bones. While patient was being treated for this, his renal function began to worsen. This was believed to be due to vancomycin-induced nephrotoxicity. Vancomycin was then held. However his renal function continued to worsen. As such a temporary dialysis catheter was placed and patient was started on hemodialysis. His renal function has not yet recovered and so he is now being transitioned to permanent hemodialysis. Outpatient dialysis is being arranged for the patient and patient will be discharged from the hospital once that arranged. He was evaluated by physical therapy and recommended placement to skilled rehabilitation. Patient does have a wound VAC in place in his right foot and also has a EP IV in place for long-term antibiotics. Wound cultures were positive for MSSA and group C strep streptococci both sensitive to Rocephin. Patient is therefore receiving Rocephin. Infectious disease recommended a total of 6 weeks of IV antibiotics. Patient is on 2 g of Rocephin daily. He will follow up with infectious disease for an podiatry after discharge for further management of his foot wound. 35minutes was spent discharging this patient including counseling Qualifiers: Sepsis type: methicillin susceptible Staphylococcus aureus Qualified Code(s ): A41.01 - Sepsis due to Methicillin susceptible Staphylococcus aureus (2) Osteomyelitis Priority: Secondary Status: Acute Qualifiers: Osteomyelitis type: other Osteomyelitis location: foot Laterality: right Qualified Code(s): M86.8X7 - Other osteomyelitis, ankle and foot (3) Acute on chronic renal failure Priority: Secondary Status: Acute Qualifiers: Acute renal failure type: with acute tubular necrosis Chronic kidney disease stage: on chronic dialysis Qualified Code(s): N17.0 - Acute kidney failure with tubular necrosis; N18.9 - Chronic kidney disease, unspecified; Z99.2 - Dependence on renal dialysis (4) HTN (hypertension) Priority: Secondary Status: Chronic Qualifiers: Hypertension type: essential hypertension Qualified Code(s): I10 - Essential (primary) hypertension (5) DM2 (diabetes mellitus, type 2) Priority: Secondary Status: Chronic Qualifiers: Diabetes mellitus manager of broadcast content insulin use: with manager of broadcast content use Diabetes mellitus complication status: with hyperosmolarity Diabetes mellitus complication detail: without coma Qualified Code(s): E11.00 - Type 2 diabetes mellitus with hyperosmolarity without nonketotic hyperglycemic-hyperosmolar coma ([facility]); 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 Bowen is a 47 year old male - Time Spent with Patient Total time spent providing and/or coordinating discharge services: - Discharge Medications Prescriptions: cefTRIAXone [Rocephin] 2,000 mg IVPB DAILY #32 vial Gabapentin [Neurontin] 100 mg PO BID #20 capsule Lisinopril [Zestril] 5 mg PO DAILY #30 tablet Tramadol HCl [Ultram] 50 mg PO QID PRN 5 Days #20 tablet PRN Reason: Mild Pain Home Medications: Cetirizine HCl [24Hour Allergy] 10 mg PO DAILY PRN 01/19/17 [History] Insulin Glargine [Lantus] 45 unit SQ BID 01/19/17 [History] ARIPiprazole [Abilify] 10 mg PO DAILY 07/27/17 [History] Buspirone HCl [Buspar] 30 mg PO BID 07/27/17 [History] Glimepiride [Amaryl] 4 mg PO DAILY 07/27/17 [History] PARoxetine HCl [Paroxetine HCl] 40 mg PO DAILY 07/27/17 [History] Allopurinol [Zyloprim 100 MG] 100 mg PO DAILY tablet 11/07/17 [Rx] Cyanocobalamin (B-12) [Vitamin B12] 1,000 mcg PO DAILY tablet 11/07/17 [Rx] Gabapentin [Neurontin] 400 mg PO TID 30 Days #90 capsule 11/07/17 [Rx] Ergocalciferol (VITAMIN D2) [Drisdol (50,000 Unit)] 50,000 unit PO TU 04/08/18 [ History] Insulin ASPART [Novolog Flexpen] 15 - 25 unit SQ TIDWM 04/08/18 [History] Metoprolol Succinate [Toprol Xl] 50 mg PO DAILY 04/08/18 [History] Tizanidine HCl [Zanaflex] 4 mg PO HS PRN 04/22/18 [History] Albuterol Neb [Proventil Neb] 2.5 mg IH [id number] PRN inhsol 04/24/18 [Rx] Gabapentin [Neurontin] 100 mg PO BID #20 capsule 04/24/18 [Rx] Tramadol HCl [Ultram] 50 mg PO QID PRN 5 Days #20 tablet 04/24/18 [Rx] amLODIPine [Norvasc] 10 mg PO DAILY tablet 04/24/18 [Rx] cefTRIAXone [Rocephin] 2,000 mg IVPB DAILY #32 vial 04/24/18 [Rx] Lisinopril [Zestril] 5 mg PO DAILY #30 tablet 04/26/18 [Rx] Allergies/Adverse Reactions: 3 Allergy/AdvReac Type Severity Reaction Status Date / Time No Known Allergies Allergy Verified 11/02/17 10:48 Date of admission: 04/08/18 13:34 Primary care physician: Dolly Garcia CNP Consults: 04/08/18 13:39 Consult to Podiatry [CONS] Routine Consulting Provider: [facility] Reason for Consult: right foor hardware displacement Call Completed: Yes 04/08/18 13:40 Consult to Infectious Diseases [CONS] Routine Consulting Provider: Infectious Disease [facility] Reason for Consult: possible right foot osteomyelitis Call Completed: No 04/10/18 07:41 Consult to Physical Therapy [CONS] Routine Comment: Evaluate, develop and implement POC Reason for Consult: s/p surgery for infection. right lower extremity non-wb Does patient have active BEDREST order?: No Is patient medically & hemodynamically stable?: Yes 04/11/18 09:34 Consult to Nephrology [CONS] Routine Consulting Provider: Moris Matthews Reason for Consult: Anuric YESENIA, ?Vancomycin related Time Notified: 09:36 Call Completed: Yes 04/12/18 14:21 Consult to Interventional Radiology [CONS] Stat Consulting Provider: Radiology Interventional Cols Reason for Consult: Please place temporary dialysis catheter. Thanks Time Notified: 14:21 Call Completed: No 04/13/18 09:15 Consult to Dialysis [CONS] ONCE 04/15/18 08:15 Consult to Dialysis [CONS] ONCE 04/16/18 08:15 Consult to Dialysis [CONS] ONCE 04/18/18 07:45 Consult to Dialysis [CONS] ONCE 04/18/18 09:05 Consult to Invasive Line Access Team [CONS] Routine Reason for Consult: Rocephin x 6 weeks Line Type: EPIV PICC line indications: detention Med/Antibiotic Time Notified: 09:06 Call Completed: Yes 04/20/18 10:45 Consult to Dialysis [CONS] ONCE 04/22/18 06:37 Consult to Interventional Radiology [CONS] Routine Consulting Provider: Radiology Interventional Cols Reason for Consult: Please evaluate for Permacath placement tomorrow ( Sunday04/23/18). Thank you Call Completed: No 04/22/18 06:45 Consult to Dialysis [CONS] ONCE 04/22/18 08:30 Consult to Dialysis [CONS] ONCE 04/22/18 11:37 Consult to Oxygen Therapy Teacher [CONS] Routine Reason for SW Consult: please set up for chair time for outpatient dialysis. Thanks. 04/24/18 06:45 Consult to Dialysis [CONS] ONCE 04/26/18 07:00 Consult to Dialysis [CONS] ONCE 04/29/18 10:00 Consult to Dialysis [CONS] ONCE 05/01/18 09:00 Consult to Dialysis [CONS] ONCE 05/03/18 07:42 Consult to Interventional Radiology [CONS] Stat Consulting Provider: Radiology Interventional Cols Reason for Consult: replace perma cath Time Notified: 07:46 Call Completed: Yes 05/03/18 07:45 Consult to Dialysis [CONS] ONCE - Constitutional Vitals: Temp Pulse Resp BP Pulse Ox 97.6 F 68 16 114/74 97 05/03/18 15:00 05/03/18 15:00 05/03/18 15:00 05/03/18 15:00 05/03/18 15:00 General appearance: Present: A&O X 3, morbidly obese, no acute distress, answers questions appropriately - Head Head exam: Present: atraumatic, normocephalic - Eye Eye exam: Present: PERRL, conjuntiva pink, sclera anicteric Pupils: Present: PERRL - Neck Neck exam general surgery: Present: supple, trachea midline. Absent: lymphadenopathy - Respiratory Respiratory exam: Present: CTAB. Absent: accessory muscle use, rales, rhonchi, wheezes - Cardiovascular Cardiovascular exam: Present: RRR, +S1, +S2. Absent: diastolic murmur, gallop, rubs, systolic murmur - GI/Abdominal GI/Abdominal exam: Present: normal bowel sounds, soft, no peritoneal signs. Absent: distended, tenderness - Extremities Exam Extremities exam: Present: warm, radial pulses palpable and symmetrical. Absent : calf tenderness, cyanotic, pedal edema - Neurological Exam Neurological exam: Present: CN II-XII intact, oriented X3, no focal deficits. Absent: pronater drift, facial droop, speech deficit - Skin Skin exam: Present: dry, intact - Patient Status Disposition: Transfer SNF Condition: Fair - Discharge Instructions Instructions: Diabetes Mellitus Type 2 in Adults (DC), Chronic Hypertension (DC ) Follow Up With: Russell Mercer DPM [Partnered Physician] - (In wound care clinic in 1 week after discharge) Agueda Rahman, STAFFING PROGRAM MANAGER [Advanced Practice Nurse] - 05/09/18 8:40 am - VTE Documentation of Mechanical Device: Intermittent pneumatic compression device
--- NOTE | 2018-05-03 17:17 | Podiatry Progress Note ---
Date of Encounter: 05/03/18 Time of Encounter: 17:00 - Assessment and Plan (1) Osteomyelitis Current Visit: Yes Status: Acute Plan: Wound vac removed at bedside, appears to be healing without complication- [facility], will leave off at this time Instructed nurse to apply wet to dry dressing, posterior splint and SOHAIL- verbalized understanding Will need appointment in wound care center next week with NWB to RLE White wound vac sponge within open surgical wound with black on top, connected to 125 mmhg low continuous suction. Change every M-W-F. Allcare skin prep applied to macerated skin along surgical line. dry 4x4 applied along surgical line. Seal down. Reapply posterior splint after application of wound vac. Follow up with Dr. Mercer in the wound care center one week after discharge. IV abx per infectious disease. Non weight bearing to RLE. Chronic charcot s/p surgery in 2017. Developed abscess and infection prior to admission. s/p I&D and removal of hardware. Right lateral ankle was excisionally debrided removing fibrotic tissue on the plantar lateral aspect of the right foot/ankle on 04/19/18. No purulence expressed from the wound sites. 25 ml of serosanguineous drainage observed in canister. Microbiology 04/09/18 23:09 Right Foot Anaerobic Culture - Final No anaerobes were recovered. 04/08/18 11:49 Peripheral Venipuncture Blood Culture - Final No growth. 04/08/18 14:48 Peripheral Venipuncture Blood Culture - Final No growth. 04/09/18 23:09 Right Foot Wound Culture - Final Staphylococcus aureus 04/08/18 11:30 Right Foot Wound Culture - Final Group C Streptococcus Plan: Wound vac changed at bedside, irrigated wound with saline, pat dry applied adaptic, small black simplace wound vac sponge, connected to 125 mmhg low continuous suction. Change every M-W-F. Adaptic placed inside open wound. Allcare skin prep applied to macerated skin along surgical line. dry 4x4 applied along surgical line. Sealed down without leak Follow up with Dr. Mercer in the wound care center one week after discharge. IV abx per infectious disease. Non weight bearing to RLE. Qualifiers: Osteomyelitis type: other Osteomyelitis location: foot Laterality: right Qualified Code(s): M86.8X7 - Other osteomyelitis, ankle and foot (2) Charcot foot due to diabetes mellitus Current Visit: No Status: Acute Subjective Principal diagnosis: RLE swelling/bleeding Interval history: Post op patient resting comfortably in bed. Posterior splint, dressing and wound vac intact and running without issue. Patient denies any complications. States he should leave tomorrow. Patient denies any fevers, chills. n/v or flu like symptoms. Patient denies pain. Denies calf pain or sob. Objective - Vital Signs Vital Signs: Vital Signs Temp Pulse Resp BP Pulse Ox 05/03/18 15:00 97.6 F 68 16 114/74 97 05/03/18 14:40 98.0 F 15 136/82 05/03/18 14:30 139/80 05/03/18 14:15 139/83 05/03/18 14:00 138/81 05/03/18 13:45 138/86 05/03/18 13:30 141/86 05/03/18 13:15 140/79 05/03/18 13:00 125/83 05/03/18 12:45 97.7 F 76 17 114/70 05/03/18 12:30 97.5 F L 75 17 111/60 05/03/18 12:15 97.5 F L 76 18 116/65 05/03/18 12:00 122/63 05/03/18 11:45 114/61 05/03/18 11:30 116/64 05/03/18 11:15 135/79 05/03/18 11:00 122/62 05/03/18 10:45 111/60 05/03/18 10:30 97.0 F L 17 121/64 05/03/18 07:13 97.6 F 69 16 126/80 93 05/03/18 03:28 97.5 F L 59 16 131/73 92 05/03/18 00:38 98.5 F 57 16 104/67 93 05/02/18 19:08 98.2 F 73 17 116/70 95 Intake and Output 18 05/03/18 05/03/18 07:59 15:59 23:59 Intake Total 0 / 0 1300 / 1300 Output Total 0 / 0 3475 / 3475 Balance 0 / 0 -2175 / -2175 Intake: Oral 0 / 0 0 / 0 Blood Product 700 / 700 Rbcs Leuko Poor As-3 Ph Unit 700 / 700 [id number] Intake, Rinseback and Flushes 600 / 600 Output: Urine 0 / 0 525 / 525 Total Dialysis (HD) Output 2950 / 2950 Other: Meal NPO Percent of Meal Consumed 0% Blood Glucose* 130 110 Hemodialysis Net Fluid Removed 2000 (mL) - Lab Result Diagrams: 05/03/18 05:36 05/03/18 05:36 Labs: Abnormal lab results RBC 2.80 M/mcL (4.19-5.50) L 05/03/18 05:36 Hgb 7.7 g/dL (12.9-16.9) L 05/03/18 05:36 Hct 25.0 % (37.5-50.1) L 05/03/18 05:36 MCH 27.5 pg (28.0-33.3) L 05/03/18 05:36 MCHC 30.8 g/dL (31.6-35.5) L 05/03/18 05:36 Metamyelocytes % 2.0 % (0) H 04/11/18 08:13 Nucleated RBCs/100 WBC 0.3 /100 WBC (0) H 04/21/18 07:09 Platelet Estimate Slight increase (Normal) H 04/16/18 06:26 ESR 106 mm/hr (0-10) H 04/08/18 18:00 PT 12.8 Seconds (9.4-12.1) H 04/08/18 11:37 Potassium 5.3 mEq/L (3.5-5.1) H 05/03/18 05:36 BUN 57 mg/dL (6-20) H 05/03/18 05:36 Creatinine 3.89 mg/dL (0.70-1.30) H 05/03/18 05:36 Est GFR ( Amer) 20 (> 60) L 05/03/18 05:36 Est GFR (Non-Af Amer) 17 (> 60) L 05/03/18 05:36 Glucose 126 mg/dL (70-105) H 05/03/18 05:36 POC Glucose 130 mg/dL (70-99) H 05/03/18 05:28 Hemoglobin A1c 9.4 % (-5.6) H 04/09/18 06:56 Calculated Osmolality 301 (280-300) H 05/03/18 05:36 Phosphorus 5.3 mg/dL (2.7-4.5) H 04/12/18 08:56 Creatine Kinase 277 Units/L (30-223) H 04/13/18 15:02 C-Reactive Protein > 300 mg/L (Less than 10) H 04/08/18 18:00 Urine Clarity Turbid (Clear) A 04/11/18 14:50 Urine Protein 100 mg/dL (Neg-Trace) H 04/11/18 14:50 Urine Glucose (UA) 100 mg/dL (Normal) H 04/11/18 14:50 Urine Blood Large (Negative) H 04/11/18 14:50 Urine Microscopic RBC 5-15 per hpf (0-3) H 04/11/18 14:50 Urine Microscopic WBC 30-50 per hpf (0-3) H 04/11/18 14:50 Ur Squamous Epith Cells Many per lpf (None-Few) H 04/11/18 14:50 Amorphous Sediment Moderate (Few) H 04/11/18 14:50 Protein/Creatinin Ratio 1.31 mg/mg (0.00-0.20) H 04/11/18 14:50 Urine Total Protein 184 mg/dL (1-14) H 04/11/18 14:50 Vancomycin Trough 30 mcg/mL (5-10) H 04/10/18 12:44 - VTE Documentation of Mechanical Device: Intermittent pneumatic compression device Consult Discharge Plan - Plan Instructions: Diabetes Mellitus Type 2 in Adults (DC), Chronic Hypertension (DC ) Referrals: Russell Mercer DPM [Partnered Physician] - (In wound care clinic in 1 week after discharge) Agueda Rahman, CASHIERS SUPERVISOR [Advanced Practice Nurse] - 05/09/18 8:40 am Prescriptions: cefTRIAXone [Rocephin] 2,000 mg IVPB DAILY #32 vial Gabapentin [Neurontin] 100 mg PO BID #20 capsule Lisinopril [Zestril] 5 mg PO DAILY #30 tablet Tramadol HCl [Ultram] 50 mg PO QID PRN 5 Days #20 tablet PRN Reason: Mild Pain
== END 2018-05-03 18:38 | DRG 710 ==
LOC: 3ANU 11:21 → EMEROO 11:21 → SUATTDRO 13:34 → 3ANU 13:55
PROVIDERS: ADMIT Hospitalist; ATTEND Internal Medicine
PROC: IRPERMA (2018-04-23 11:00)

== ENCOUNTER 2019-01-08 20:24 | Observation (INO) ==
[2019-01-08] MEDS ORDERED: Piperacillin/Tazobactam 3.375 GM in Water for inj. (sterile) 20 ML 20 ML IVP ONE (22:31)
--- NOTE | 2019-01-08 22:35 | Emergency Department Note ---
Disposition Clinical Impression: Cellulitis of right foot Disposition: Admitted As Inpatient Condition: Fair Referrals: NONE,PCP [Primary Care Provider] - Forms: ED Satisfaction Letter Time of Disposition: 00:31 General Adult HPI - General Chief complaint: ED Extremity Problem,Nontraumatic Stated complaint: Foot Infection Time Seen by Provider: 01/08/19 22:17 Source: patient Limitations: no limitations Nursing Notes Reviewed: Yes Vital Signs Reviewed: Yes - History of Present Illness HPI Narrative: Patient presents to the ED is treatment of the foot infection. Patient has a history of foot problems. He sees Dr. Bailon. He has an appointment for the , and they could not get him in any sooner. It is red and warm. It is weeping. No fever. No shortness of breath. He has history of frequent throat infections. He has been on IV vancomycin multiple times. Last was in September. Pain Scale: 6 - Related Data Home Medications Medication Instructions Recorded Confirmed Insulin Glargine [Lantus] 45 unit SQ BID 01/19/17 01/09/19 ARIPiprazole [Abilify] 10 mg PO DAILY 07/27/17 01/09/19 Buspirone HCl [Buspar] 30 mg PO BID 07/27/17 01/09/19 Glimepiride [Amaryl] 4 mg PO DAILY 07/27/17 01/09/19 PARoxetine HCl [Paroxetine HCl] 40 mg PO DAILY 07/27/17 01/09/19 Ergocalciferol (VITAMIN D2) 50,000 unit PO TU 04/08/18 01/09/19 [Drisdol (50,000 Unit)] Insulin ASPART [Novolog Flexpen] 15 - 25 unit SQ TIDWM 04/08/18 01/09/19 Metoprolol Succinate [Toprol Xl] 50 mg PO DAILY 04/08/18 01/09/19 Tizanidine HCl [Zanaflex] 4 mg PO HS PRN 04/22/18 01/09/19 B Complex W-C No.20/Folic Acid 1 cap PO DAILY 01/09/19 01/09/19 [Nephrocaps Softgel] Previous Rx's Medication Instructions Recorded Allopurinol [Zyloprim 100 MG] 100 mg PO DAILY tablet 11/07/17 Cyanocobalamin (B-12) [Vitamin B12] 1,000 mcg PO DAILY tablet 11/07/17 Gabapentin [Neurontin] 400 mg PO TID 30 Days #90 capsule 11/07/17 Albuterol Neb [Proventil Neb] 2.5 mg IH [id number] PRN inhsol 04/24/18 Gabapentin [Neurontin] 100 mg PO BID #20 capsule 04/24/18 Tramadol HCl [Ultram] 50 mg PO QID PRN 5 Days #20 tablet 04/24/18 amLODIPine [Norvasc] 10 mg PO DAILY tablet 04/24/18 Lisinopril [Zestril] 5 mg PO DAILY #30 tablet 04/26/18 Allergies Allergy/AdvReac Type Severity Reaction Status Date / Time No Known Allergies Allergy Verified 11/02/17 10:48 All systems ED: reviewed and negative except as stated. Constitutional: Denies: fever Cardiovascular: Denies: chest pain Respiratory: Denies: dyspnea Past Medical History - Past Medical History Attestation: Yes The following information was validated with the patient. Source: patient Medical history: Reports: arthritis, asthma, diabetes, hypertension, renal disease, other Surgical history: Reports: knee replacement, orthopedic, other, other Psychiatric history: Reports: anxiety, depression - Social History Smoking Status: Never smoker Smokeless Tobacco Status: No Alcohol use: Reports: none Drug use: Reports: none Physical Exam Patient awake and alert sitting up in bed in no acute distress. - General Limitations: no limitations General appearance: alert, in no apparent distress - Head Head exam: atraumatic - Eye Eye exam: Present: normal appearance - Neck Neck exam: Present: normal inspection - Chest Chest inspection: Present: normal inspection - Respiratory Respiratory exam: Present: normal lung sounds bilaterally - Cardiovascular Cardiovascular exam: Present: regular rate, normal rhythm, normal heart sounds - Abdominal Exam Abdominal exam: Present: soft - Expanded Lower Extremity Exam Foot/toe exam: Present: other - Neurological Exam Neurological exam: Present: alert, oriented X3 - Psychiatric Psychiatric exam: Present: normal affect - Skin Skin exam: Present: warm, dry Course Course Narrative: Patient in no distress. Mildly tachycardic. We will evaluate for sepsis, although he does not meet SIRS criteria at this time. Workup pending. Will start broad-spectrum anabiotic. Foot smells of pseudomonas. - Reevaluation(s) Reevaluation #1: White count normal. Patient's tachycardic but does not meet sepsis criteria. IV antibiotics given. Patient will be admitted. Time: 00:31 - Consultations Consultation #1: Dr Roe accepts Time: 00:31 Vital Signs Temperature 98.8 F 01/08/19 20:54 Pulse Rate 102 01/08/19 20:54 Respiratory Rate 16 01/08/19 20:54 Blood Pressure 149/95 01/08/19 20:54 O2 Sat by Pulse Oximetry 97 01/08/19 20:54 Temperature 98.8 F 01/08/19 20:54 Pulse Rate 80 01/09/19 00:23 Respiratory Rate 16 01/09/19 00:23 Blood Pressure 162/90 01/09/19 00:23 O2 Sat by Pulse Oximetry 98 01/09/19 00:23 Oxygen Delivery Oxygen Delivery Room Air Medical Decision Making - Lab Data Lab results reviewed: Yes I reviewed the patient's lab results. Result diagrams: 01/08/19 22:45 01/08/19 22:45 Lab Results 01/08/19 01/08/19 01/08/19 Range/Units 22:45 22:45 22:45 WBC 7.7 (4.3-11.1) K/mcL RBC 4.84 (4.19-5.50) M/mcL Hgb 13.9 (12.9-16.9) g/dL Hct 41.6 (37.5-50.1) % MCV 86.0 (83.0-100.0) fL MCH 28.7 (28.0-33.3) pg MCHC 33.4 (31.6-35.5) g/dL RDW 12.6 (11.5-14.5) % Plt Count 252 (140-400) K/mcL MPV 9.2 L (9.4-12.4) fL Immature Gran % 0.4 (0-4) % Seg Neutrophils % 69.5 % Lymphocytes % 17.5 % Monocytes % 8.9 % Eosinophils % 3.2 % Basophils % 0.5 % Neutrophils # 5.4 (1.6-8.9) K/mcL Lymphocytes # 1.4 (0.6-4.6) K/mcL Monocytes # 0.7 (0.0-1.3) K/mcL Eosinophils # 0.3 (0.0-0.6) K/mcL Basophils # 0.0 (0.0-0.2) K/mcL Sodium 138 (136-145) mEq/L Potassium 3.9 (3.5-5.1) mEq/L Chloride 103 (98-107) mEq/L Carbon Dioxide 26 (23-29) mEq/L BUN 31 H (6-20) mg/dL Creatinine 1.79 H (0.70-1.30) mg/dL Est GFR ( Amer) 49 L (> 60) Est GFR (Non-Af Amer) 40 L (> 60) BUN/Creatinine Ratio 17 (6-26) Glucose 258 H (70-105) mg/dL Calculated Osmolality 301 H (280-300) Lactic Acid 2.3 H (0.5-2.2) mmol/L Calcium 9.6 (8.6-10.3) mg/dL Total Bilirubin 0.4 (0.3-1.0) mg/dL Direct Bilirubin 0.0 (0.0-0.2) mg/dL Indirect Bilirubin 0.4 (0.0-1.2) mg/dL AST 16 (13-39) Units/L ALT 20 (7-52) Units/L Alkaline Phosphatase 118 H (34-104) Units/L Serum Total Protein 7.6 (6.4-8.9) g/dL Albumin 4.1 (3.5-5.7) g/dL Globulin 3.5 (2.4-3.5) g/dL Albumin/Globulin Ratio 1.2 (1.1-2.2) - Radiology Data Radiology results reviewed: Yes I reviewed the patient's radiology results. Foot X-Ray 01/08/19 22:31 IMPRESSION: There has been progressive collapse, fragmentation and osseous destruction involving the distal tibia, talus and calcaneus. The findings are likely due to ongoing Charcot arthropathy. Evaluation for osteomyelitis is limited without recent comparison imaging. Diffuse soft tissue swelling with no soft tissue gas. No acute fracture deformity. D/ / 01/08/2019 23:29:12 Soy Eduardo MD / hood Interpreting Provider: Soy Eduardo MD - EKG Data EKG #1 EKG attestation: Yes I reviewed and interpreted this EKG. EKG results narrative: Sinus rhythm at 91. Poor R-wave progression. Normal ST segments. QT 354 QTC 436. Unchanged from EKG March 2018 Critical Care Time Critical Care Time: No
[2019-01-08 23:01] LABS: Basophils % 0.5 %; Eosinophils # 0.3 K/mcL (0.0-0.6); Eosinophils % 3.2 %; Hematocrit 41.6 % (37.5-50.1); Hemoglobin 13.9 g/dL (12.9-16.9); Immature Granulocytes % 0.4 % (0-4); Lymphocytes # 1.4 K/mcL (0.6-4.6); Lymphocytes % 17.5 %; Mean Corpuscular HGB Conc 33.4 g/dL (31.6-35.5); Mean Corpuscular Hemoglobin 28.7 pg (28.0-33.3); Mean Platelet Volume 9.2 fL (9.4-12.4); Monocytes # 0.7 K/mcL (0.0-1.3); Monocytes % 8.9 %; Neutrophils # 5.4 K/mcL (1.6-8.9); Platelet Count 252 K/mcL (140-400); Red Blood Count 4.84 M/mcL (4.19-5.50); Red Cell Distribution Width 12.6 % (11.5-14.5); Segmented Neutrophils % 69.5 %
[2019-01-08 23:25] LABS: Albumin 4.1 g/dL (3.5-5.7); Albumin/Globulin Ratio 1.2 (1.1-2.2); Bilirubin,Indirect 0.4 mg/dL (0.0-1.2); Bilirubin,Total 0.4 mg/dL (0.3-1.0); Calcium 9.6 mg/dL (8.6-10.3); Globulin 3.5 g/dL (2.4-3.5); Potassium 3.9 mEq/L (3.5-5.1); Total Protein 7.6 g/dL (6.4-8.9)
[2019-01-09] MEDS ORDERED: traMADol 50 MG TABLET PO STA (00:35)
[2019-01-09] MEDS ORDERED: Aminoglycoside Consult 1 EACH MC ONE (01:34)
[2019-01-09] MEDS ORDERED: tiZANidine 4 MG TABLET PO STA (05:24)
[2019-01-09] MEDS ORDERED: Ondansetron 4 MG/2 ML VIAL IVP PRN (07:32)
[2019-01-09] MEDS ORDERED: traMADol 50 MG TABLET PO PRN (07:32)
[2019-01-09] MEDS ORDERED: Naloxone 0.4 MG/ML INJ IVP PRN (07:32)
[2019-01-09] MEDS ORDERED: *HR* OxyCODONE Immed Rel 5 MG TABLET PO PRN (07:32)
[2019-01-09] MEDS ORDERED: Acetaminophen 325 MG TABLET PO PRN (07:32)
[2019-01-09] MEDS ORDERED: Albuterol 2.5 MG/3 ML NEBULIZER IH PRN (07:35)
[2019-01-09] MEDS ORDERED: tiZANidine 4 MG TABLET PO PRN (07:35)
[2019-01-09] MEDS ORDERED: *HR* Dextrose 50 % in Water (Syg) 50 ML SYRINGE IVP PRN (07:58)
[2019-01-09] MEDS ORDERED: D5% in Water 1,000 ML IVC PRN (07:58)
[2019-01-09] MEDS ORDERED: Dextrose Gel 15 GM/37.5 ML TUBE PO PRN ×2 (07:58)
[2019-01-09] MEDS ORDERED: Dextrose 4 GM Chewable Tablets PO PRN ×2 (07:58)
--- NOTE | 2019-01-09 08:56 | Internal Med History&Physical ---
Date of Encounter: 01/09/19 Time of Encounter: 07:40 Internal Medicine - H&P: HPI Chief complaint: R foot pain and swelling Admitted From: Home Plans for Post Hospital Care: Home History of present illness: Mr. Bowen is a 48 year old male with history of Charcot arthropathy, diabetes, previous history of right foot abscess and osteomyelitis, CKD, who presented to the ED with progressive worsening right foot pain. Associated with swelling at the plantar aspect and redness. States that it started around 2 days after he wore a boot that he washed with bleach. Denies any fever/chills, nausea/vomiting, or any drainage from the foot.. No cardiopulmonary symptoms. In the ED, he was afebrile and hemodynamically stable. Labwork was unremarkable with creatinine at his baseline 1.79. X-ray of the right foot showed findings compatible with ongoing Charcot arthropathy and diffuse soft tissue swelling. Patient was started on vancomycin/Zosyn in the ED and admitted for further management. Past Med Surg Social Fam HX - Past Medical History Attestation: Yes The following information was validated with the patient. Medical history: arthritis, asthma, diabetes, hypertension, renal disease, other Additional medical history: sleep apnea Psychiatric history: anxiety, depression - Past Surgical History Surgical History: knee replacement, orthopedic, other, other Additional surgical history: right total knee replacement,rt ankle. shoulder surgery. [employer] REMOVAL. RIGHT KNEE SCOPE X2. TOE DEBRIDEMENT. RIGHT FIBILLA. 11/02/17 R FOOT/ANKLE FUSION W/POSSIBLE HARDWARE USAGE @[facility] W/DR VALLADARES - Social History Smoking Status: Never smoker Smokeless Tobacco Status: No Alcohol use: none Drug use: none - Family History Mother Adopted: No Family Member Ethnicity: Non- Living Status: Still Living Hx Family Cardiac Disorders: No Hx Family Respiratory Disorders: No Hx Family Cancer: No Hx Family GI Disorders: No Hx Family Endocrine Disorder: No Hx Family Neuromuscular Disorders: No Hx Family Neurologic Disorders: No Hx Family HEENT Disorders: No Hx Family Autoimmune Disorders: No Father Adopted: No Family Member Ethnicity: Non- Living Status: Still Living Hx Family Cardiac Disorders: Yes (father quad bypass) Hx Family Respiratory Disorders: Yes (father) Hx Family Cancer: No Hx Family GI Disorders: No Hx Family Genitourinary Disorders: No Hx Family Endocrine Disorder: Yes (mother and father dm mother thyroid) Hx Family Musculoskeletal Disorders: No Hx Family Neuromuscular Disorders: No Hx Family Neurologic Disorders: No Hx Family HEENT Disorders: Yes (father born with one ear.) Hx Family Autoimmune Disorders: No Hx Family Reproductive Disorders: No Hx Family Psychosocial Disorders: No Hx Family Medical Disorders: No Internal Medicine - H&P: Meds Insulin Glargine [Lantus] 45 unit SQ BID 01/19/17 [History] ARIPiprazole [Abilify] 10 mg PO DAILY 07/27/17 [History] Buspirone HCl [Buspar] 30 mg PO BID 07/27/17 [History] Glimepiride [Amaryl] 4 mg PO DAILY 07/27/17 [History] PARoxetine HCl [Paroxetine HCl] 40 mg PO DAILY 07/27/17 [History] Allopurinol [Zyloprim 100 MG] 100 mg PO DAILY tablet 11/07/17 [Rx] Cyanocobalamin (B-12) [Vitamin B12] 1,000 mcg PO DAILY tablet 11/07/17 [Rx] Gabapentin [Neurontin] 400 mg PO TID 30 Days #90 capsule 11/07/17 [Rx] Ergocalciferol (VITAMIN D2) [Drisdol (50,000 Unit)] 50,000 unit PO TU 04/08/18 [History] Insulin ASPART [Novolog Flexpen] 15 - 25 unit SQ TIDWM 04/08/18 [History] Metoprolol Succinate [Toprol Xl] 50 mg PO DAILY 04/08/18 [History] Tizanidine HCl [Zanaflex] 4 mg PO HS PRN 04/22/18 [History] Albuterol Neb [Proventil Neb] 2.5 mg IH [id number] PRN inhsol 04/24/18 [Rx] Gabapentin [Neurontin] 100 mg PO BID #20 capsule 04/24/18 [Rx] Tramadol HCl [Ultram] 50 mg PO QID PRN 5 Days #20 tablet 04/24/18 [Rx] amLODIPine [Norvasc] 10 mg PO DAILY tablet 04/24/18 [Rx] Lisinopril [Zestril] 5 mg PO DAILY #30 tablet 04/26/18 [Rx] B Complex W-C No.20/Folic Acid [Nephrocaps Softgel] 1 cap PO DAILY 01/09/19 [ History] Allergy/AdvReac Type Severity Reaction Status Date / Time No Known Allergies Allergy Verified 11/02/17 10:48 All Systems PM: A 10-system review of systems was performed and is negative for pertinent findings except as documented above in the HPI. - Constitutional Vitals: Temp Pulse Resp BP Pulse Ox 97.7 F 57 16 128/83 98 01/09/19 07:30 01/09/19 07:30 01/09/19 07:30 01/09/19 07:30 01/09/19 07:30 Exam: General: Alert and oriented, not in acute distress. HEENT:EOMI, pupils equal, round and reactive. Cardiovascular:Normal S1 & S2, No JVD. Pulse regular. Lungs: clear to auscultation, no wheezes/rales Abdomen:Soft, non-tender, no rigidity. Extremities: R foot swelling, redness, and mild tenderness along the entire plantar aspect, ascending slightly along the posterior calf. No localized swelling/fluctuance appreciated. No drainage Neurological:Normal cognition and motor skills. Non-focal Skin:Normal color, no rash Pulses:Carotid and radial pulses normal +2. Rest of the physical exam is non contributory Internal Med - H&P Results - Labs CBC & Chem 7: 01/08/19 22:45 01/08/19 22:45 Labs: Short CBC 01/08/19 Range/Units 22:45 WBC 7.7 (4.3-11.1) K/mcL Hgb 13.9 (12.9-16.9) g/dL Hct 41.6 (37.5-50.1) % Plt Count 252 (140-400) K/mcL Neutrophils # 5.4 (1.6-8.9) K/mcL BMP 01/08/19 22:45 Sodium 138 Potassium 3.9 Chloride 103 Carbon Dioxide 26 BUN 31 H Creatinine 1.79 H Glucose 258 H Calcium 9.6 Liver Function 01/08/19 Range/Units 22:45 Total Bilirubin 0.4 (0.3-1.0) mg/dL Direct Bilirubin 0.0 (0.0-0.2) mg/dL AST 16 (13-39) Units/L ALT 20 (7-52) Units/L Alkaline Phosphatase 118 H (34-104) Units/L Albumin 4.1 (3.5-5.7) g/dL - Impressions ITS Impressions Foot X-Ray 01/08/19 22:31 IMPRESSION: There has been progressive collapse, fragmentation and osseous destruction involving the distal tibia, talus and calcaneus. The findings are likely due to ongoing Charcot arthropathy. Evaluation for osteomyelitis is limited without recent comparison imaging. Diffuse soft tissue swelling with no soft tissue gas. No acute fracture deformity. D/ / 01/08/2019 23:29:12 Soy Eduardo MD / hood Interpreting Provider: Soy Eduardo MD - Assessment and Plan (1) Cellulitis of right foot Current Visit: Yes Status: Acute Assessment and plan: Admitted for progressively worsening right foot pain/swelling/redness XR showed findings compatible with ongoing Charcot arthropathy started on vancomycin/Zosyn, continue check ESR/CRP, follow up on blood cultures CT R foot discussed with podiatry, will consult (2) DM2 (diabetes mellitus, type 2) Current Visit: No Status: Chronic Assessment and plan: On basal/bolus insulin as well as glimepiride at home. Will resume Levemir 45 units twice a day and add low-dose sliding scale ADA diet Qualifiers: Diabetes mellitus skilled nursing insulin use: with terminal make up operator use Diabetes mellitus complication status: with hyperosmolarity Diabetes mellitus complication detail: without coma Qualified Code(s): E11.00 - Type 2 diabetes mellitus with hyperosmolarity without nonketotic hyperglycemic-hyperosmolar coma ([facility]); Z79.4 - halfway (current) use of insulin (3) CKD (chronic kidney disease) Current Visit: No Status: Chronic Assessment and plan: Creatinine at his baseline, avoid nephrotoxins Renally adjusted antibiotics Qualifiers: Chronic kidney disease stage: stage 3 (moderate) Qualified Code(s): N18.3 - Chronic kidney disease, stage 3 (moderate) (4) Morbid obesity with BMI of 50.0-59.9, adult Current Visit: No Status: Chronic Assessment and plan: Lifestyle modification emphasized (5) HTN (hypertension) Current Visit: No Status: Chronic Assessment and plan: Resume home meds Qualifiers: Hypertension type: essential hypertension Qualified Code(s): I10 - Essential (primary) hypertension (6) DVT prophylaxis Current Visit: No Status: Acute Assessment and plan: Subcutaneous heparin - Time Spent With Patient Total time spent is greater than 50% in coordination of care (as documented) at patient's floor/unit and/or counseling patient: Greater than 35 minutes
[2019-01-09] MEDS ORDERED: NON-FORMULARY MEDICATION 1 EACH EACH (Insulin Glargine [Lantus] 45 UNIT) SQ SCH (09:00)
[2019-01-09] MEDS ORDERED: Gabapentin 100 MG CAPSULE PO SCH (09:00)
[2019-01-09] MEDS: amLODIPine 5 MG TABLET PO SCH (09:29)
[2019-01-09] MEDS: Metoprolol XL (24 HR) Succ 50 MG TAB.ER.24H PO SCH (09:29)
[2019-01-09] MEDS: Cyanocobalamin (B-12) 1,000 MCG TABLET PO SCH (09:29)
[2019-01-09] MEDS: ARIPiprazole 10 MG TABLET PO SCH (09:29)
[2019-01-09] MEDS: Gabapentin 400 MG CAPSULE PO SCH ×3 (09:34→21:36)
[2019-01-09] MEDS: Piperacillin/Tazobactam 3.375 GM in 0.9 % Sodium Chloride Mini Bag 100 ML IVPB SCH ×2 (11:26→18:12)
[2019-01-09] MEDS: Insulin LISPRO 300 UNITS/3 ML VIAL SQ SCH ×3 (12:21→21:40)
[2019-01-09] MEDS: *HR* Heparin 5,000 UNIT/ML VIAL SQ SCH ×2 (12:22→21:37)
--- NOTE | 2019-01-09 12:28 | Podiatry Consult Note ---
Date of Encounter: 01/09/19 Time of Encounter: 11:35 Assessment and Plan (1) Charcot foot due to diabetes mellitus Current visit: No Status: Acute Assessment: 2/4 DP/PT CFT <3 seconds No fluctuance noted No open area to foot Fissuring noted to plantar aspect of right foot that is superficial Erythema and edema noted, erythema does not extend past demarcation line ESR 30, CRP 22, WBC 7.7 Currently on zosyn and vancomycin CT concerning for septic arthritis, OM, and cellulitis Xray showed charcot Plan: HGB A1C ordered At this time no concern for septic arthritis, CT reviewed and indicative of charcot NWB to RLE Wash right lower extremity with soap and water. Place lotion to foot to prevent cracking. Orders placed Agree with short course of ATB Follow up in office with Dr. Mercer in 1 week in office. Please make appointment prior to d/c. Impression: CT/CT foot RT wo con IMPRESSION: Large tibiotalar, subtalar, talonavicular and calcaneocuboid joint effusions with extensive synovitis. Findings suggest septic arthritis. Progressive collapse of the ankle, hindfoot and midfoot with progressive erosive changes and fragmentation of the distal tibial plafond, talar dome, calcaneus. Sclerosis of the distal tibia, remaining talus, calcaneus and cuboid bones. Findings suggest osteomyelitis. Chronic dislocation of the talonavicular joint. Diffuse periarticular soft tissue swelling suggesting cellulitis. D/ / 01/09/2019 10:28:55 Yovanny Burdick MD / Olivia Weir Interpreting Provider: Yovanny Burdick MD (2) Cellulitis of right foot Current visit: Yes Status: Acute See above History of Present Illness HPI: Mr. Bowen is a 48 year old male who presented to the ER for worsening right foot pain. Patient is known to the podiatry clinic. Follows with Dr. Mercer in office for shankar. Patient with PMH of Charcot arthropathy, DM, previous history of right foot abscess, OM, HTN, Asthma, depression/anxiety, fibromyalgia, neuropathy, and CKD stage III, who presented to the ED with progressive worsening right foot pain Patient was last seen in [facility] and at that time a [place] walker boot was ordered. Patient was referred to PT/OT to assist with ambulation. Patient states that 1 week ago he noticed blood in his [place] walker boot. States bleached the boot lining at that time. States 3 days later he then began to have a lot of pain to right calcaneous. Reports the pain was so debilitating that he came in to the ER for evaluation. Again, Mr. Bowen is a 48 year old male, who presented for right foot pain. Patient denies any open wounds. Denies any fevers, chills, nausea, vomiting, or diarrhea. Denies any chest pain or shortness of breath. Reports right calf tenderness. Reports erythema and edema to right lower extremity. CT of right foot completed and concerning for septic arthritis, OM, and cellulitis. Past Med Surg Social Fam HX - Past Medical History Medical history: arthritis, asthma, diabetes, hypertension, renal disease, other Additional medical history: sleep apnea Psychiatric history: anxiety, depression - Past Surgical History Surgical History: knee replacement, orthopedic, other, other Additional surgical history: right total knee replacement,rt ankle. shoulder [facility]. RIGHT KNEE SCOPE X2. TOE DEBRIDEMENT. RIGHT FIBILLA. 11/02/17 R FOOT/ANKLE FUSION W/POSSIBLE HARDWARE USAGE @[facility] W/DR MATT MACK - Social History Smoking Status: Never smoker Smokeless Tobacco Status: No Alcohol use: none Drug use: none - Family History Mother Adopted: No Family Member Ethnicity: Non- Living Status: Still Living Hx Family Cardiac Disorders: No Hx Family Respiratory Disorders: No Hx Family Cancer: No Hx Family GI Disorders: No Hx Family Endocrine Disorder: No Hx Family Neuromuscular Disorders: No Hx Family Neurologic Disorders: No Hx Family HEENT Disorders: No Hx Family Autoimmune Disorders: No Father Adopted: No Family Member Ethnicity: Non- Living Status: Still Living Hx Family Cardiac Disorders: Yes (father quad bypass) Hx Family Respiratory Disorders: Yes (father) Hx Family Cancer: No Hx Family GI Disorders: No Hx Family Genitourinary Disorders: No Hx Family Endocrine Disorder: Yes (mother and father dm mother thyroid) Hx Family Musculoskeletal Disorders: No Hx Family Neuromuscular Disorders: No Hx Family Neurologic Disorders: No Hx Family HEENT Disorders: Yes (father born with one ear.) Hx Family Autoimmune Disorders: No Hx Family Reproductive Disorders: No Hx Family Psychosocial Disorders: No Hx Family Medical Disorders: No Medications and Allergies Insulin Glargine [Lantus] 45 unit SQ BID 01/19/17 [History] ARIPiprazole [Abilify] 10 mg PO DAILY 07/27/17 [History] Buspirone HCl [Buspar] 30 mg PO BID 07/27/17 [History] Glimepiride [Amaryl] 4 mg PO DAILY 07/27/17 [History] PARoxetine HCl [Paroxetine HCl] 40 mg PO DAILY 07/27/17 [History] Allopurinol [Zyloprim 100 MG] 100 mg PO DAILY tablet 11/07/17 [Rx] Cyanocobalamin (B-12) [Vitamin B12] 1,000 mcg PO DAILY tablet 11/07/17 [Rx] Gabapentin [Neurontin] 400 mg PO TID 30 Days #90 capsule 11/07/17 [Rx] Ergocalciferol (VITAMIN D2) [Drisdol (50,000 Unit)] 50,000 unit PO TU 04/08/18 [History] Insulin ASPART [Novolog Flexpen] 15 - 25 unit SQ TIDWM 04/08/18 [History] Metoprolol Succinate [Toprol Xl] 50 mg PO DAILY 04/08/18 [History] Tizanidine HCl [Zanaflex] 4 mg PO HS PRN 04/22/18 [History] Albuterol Neb [Proventil Neb] 2.5 mg IH [id number] PRN inhsol 04/24/18 [Rx] Gabapentin [Neurontin] 100 mg PO BID #20 capsule 04/24/18 [Rx] Tramadol HCl [Ultram] 50 mg PO QID PRN 5 Days #20 tablet 04/24/18 [Rx] amLODIPine [Norvasc] 10 mg PO DAILY tablet 04/24/18 [Rx] Lisinopril [Zestril] 5 mg PO DAILY #30 tablet 04/26/18 [Rx] B Complex W-C No.20/Folic Acid [Nephrocaps Softgel] 1 cap PO DAILY 01/09/19 [History] Allergy/AdvReac Type Severity Reaction Status Date / Time No Known Allergies Allergy Verified 11/02/17 10:48 All Systems Reviewed: The remainder of the systems were reviewed and are negative - Constitutional Constitutional: no fever(s) - Cardiovascular Cardiovascular: leg edema, pedal edema, no chest pain, no dyspnea, no leg ulcers - Respiratory Respiratory: no cough, no dyspnea - Musculoskeletal Musculoskeletal: as per HPI, limited range of motion, muscle weakness, numbness Physical Exam - Constitutional Vitals: Temp Pulse Resp BP Pulse Ox 97.6 F 72 16 158/98 94 01/09/19 11:00 01/09/19 11:00 01/09/19 11:00 01/09/19 11:00 01/09/19 11:00 Exam: Constitiutional: Alert and oriented x 3. Well nourished. No acute distress noted Vascular: 2/4 DP/PT RLE, CFT <3 sec to all digits RLE, warm to warm from tibia to toes RLE, calf pain with squeeze RLE Neurologic: Diminished sensation to touch, normal plantar response, abnormal p osition sense dorsiflexion/plantar flexion Dermatologic: Skin W/D. Erythema noted. Does not extend past demarcation line. Edema noted. No open wounds noted. Xerosis of right lower extremity with hyper keratosis noted. Fissuring noted, does not extend into the subdermal layer. Musculoskeletal: 3/5 muscle strength and normal tone RLE Results - Labs Result Diagrams: 01/08/19 22:45 01/08/19 22:45 Labs: Abnormal lab results MPV 9.2 fL (9.4-12.4) L 01/08/19 22:45 ESR 30 mm/hr (0-10) H 01/09/19 07:47 BUN 31 mg/dL (6-20) H 01/08/19 22:45 Creatinine 1.79 mg/dL (0.70-1.30) H 01/08/19 22:45 Est GFR ( Amer) 49 (> 60) L 01/08/19 22:45 Est GFR (Non-Af Amer) 40 (> 60) L 01/08/19 22:45 Glucose 258 mg/dL (70-105) H 01/08/19 22:45 Calculated Osmolality 301 (280-300) H 01/08/19 22:45 Alkaline Phosphatase 118 Units/L (34-104) H 01/08/19 22:45 C-Reactive Protein 22 mg/L (Less than 10) H 01/09/19 07:47 H & H 01/08/19 Range/Units 22:45 Hgb 13.9 (12.9-16.9) g/dL Hct 41.6 (37.5-50.1) % All other labs normal. - Diagnostic results Ankle/Foot x-ray: report reviewed Ankle/Foot CT: report reviewed Consult Discharge Plan - Plan Referrals: NONE,PCP [Primary Care Provider] -
[2019-01-09 17:08] LABS: Estimated Average Glucose 160 mg/dl; Hemoglobin A1C 7.2 %
[2019-01-09] MEDS: Insulin DETEMIR 100 UNIT/ML X5UNITS SQ SCH (21:37)
[2019-01-10] MEDS: Piperacillin/Tazobactam 3.375 GM in 0.9 % Sodium Chloride Mini Bag 100 ML IVPB SCH ×3 (00:28→16:03)
[2019-01-10] MEDS: Nystatin POWDER 30 GM BOTTLE TP SCH ×4 (00:29→21:05)
[2019-01-10] MEDS: *HR* Heparin 5,000 UNIT/ML VIAL SQ SCH ×3 (05:09→21:05)
[2019-01-10 05:56] LABS: Basophils # 0.1 K/mcL (0.0-0.2); Basophils % 1.1 %; Eosinophils # 0.3 K/mcL (0.0-0.6); Hematocrit 36.8 % (37.5-50.1); Immature Granulocytes % 0.4 % (0-4); Lymphocytes # 0.9 K/mcL (0.6-4.6); Lymphocytes % 18.3 %; Mean Corpuscular HGB Conc 32.3 g/dL (31.6-35.5); Mean Corpuscular Hemoglobin 28.4 pg (28.0-33.3); Mean Corpuscular Volume 87.8 fL (83.0-100.0); Mean Platelet Volume 9.8 fL (9.4-12.4); Monocytes # 0.5 K/mcL (0.0-1.3); Monocytes % 10.7 %; Platelet Count 210 K/mcL (140-400); Red Blood Count 4.19 M/mcL (4.19-5.50); Red Cell Distribution Width 12.6 % (11.5-14.5); Segmented Neutrophils % 63.5 %
[2019-01-10 05:58] LABS: Hemoglobin 11.9 g/dL (12.9-16.9)
[2019-01-10 06:02] LABS: INR 1.1; Prothrombin Time 12.4 Seconds (9.4-12.1)
[2019-01-10 06:19] LABS: Magnesium 1.7 mg/dL (1.6-2.6); Potassium 4.2 mEq/L (3.5-5.1)
[2019-01-10] MEDS: Insulin LISPRO 300 UNITS/3 ML VIAL SQ SCH ×4 (08:38→21:05)
[2019-01-10] MEDS: Metoprolol XL (24 HR) Succ 50 MG TAB.ER.24H PO SCH (10:21)
[2019-01-10] MEDS: Cyanocobalamin (B-12) 1,000 MCG TABLET PO SCH (10:21)
[2019-01-10] MEDS: amLODIPine 5 MG TABLET PO SCH (10:22)
[2019-01-10] MEDS: ARIPiprazole 10 MG TABLET PO SCH (10:22)
[2019-01-10] MEDS: Gabapentin 400 MG CAPSULE PO SCH ×3 (10:22→21:04)
[2019-01-10] MEDS: Insulin DETEMIR 100 UNIT/ML X5UNITS SQ SCH ×2 (10:23→21:05)
--- NOTE | 2019-01-10 10:26 | Internal Med Progress Note ---
<Carmine Quintero - Last Filed: 01/10/19 16:07> Hospitalist Progress Note - Encounter Date of Encounter: 01/10/19 Time of Encounter: 09:32 - Subjective Interval History: Mr. Bowen is a 48 y/o M w/hx of Charcot arthropathy, diabetes, previous history of right foot abscess and osteomyelitis, CKD, admitted for worsening foot pain. Associated with swelling at the plantar aspect and redness. States that it started around 2 days after he wore a boot that he washed with bleach. X ray shows findings supporting ongoing Charcot arthropathy and diffuse soft tissue swelling. Patient was seen this a.m resting comfortably at bedside. Denies any fever/chills, nausea/vomiting, or any drainage from the foot. Denies chest pain, SOB, palpitations, or calf tenderness. Currently afebrile. X-ray of the right foot showed findings compatible with ongoing Charcot arthropathy and diffuse soft tissue swelling. - Exam Vitals: Temp Pulse Resp BP Pulse Ox 97.6 F 58 18 107/72 94 01/10/19 10:16 01/10/19 10:16 01/10/19 10:16 01/10/19 10:16 01/10/19 10:16 Exam: General: A&Ox3, not in any acute distress. HEENT:EOMI, pupils equal, round and reactive. Cardiovascular:Normal S1 & S2, No JVD, slightly distant heart sounds likely secondary to larger chest wall diameter. Lungs: clear to auscultation, no wheezes/rales Abdomen: soft, distended obese abdomen, BSx3, no pain to palpation Extremities: R foot swelling, redness, and mild tenderness along the entire plantar aspect, ascending slightly along the posterior calf. No localized swelling/fluctuance appreciated. No drainage. R foot appears grossly swollen in comparison to Left. Neurological:CN grossly intact no focal deficits Pulses:Carotid and radial pulses normal +2, LE pulses intact +2 - Assessment and Plan (1) Cellulitis of right foot Current Visit: Yes Status: Acute Assessment and Plan: Admitted for progressively worsening right foot pain/swelling/redness XR showed findings compatible with ongoing Charcot arthropathy. R foot culture revealed GN Rods, will consider D/C vanc at a later time. Renal dose the Vanc. -MRSA nasal swab -Cr. is currently slightly elevated from baseline. -Podiatry consulted appreciate recommendations including Wash foot with soap and water, lotion. Agree with short course ABX. Follow up in office with Dr. Mercer in 1 week in office. Please make appointment prior to d/c. (2) DM2 (diabetes mellitus, type 2) Current Visit: No Status: Chronic Assessment and Plan: Diagnosed with DM 12 years ago. On basal/bolus 45units lantus BID Humulog for meal coverage as well as glimepiride at home. -Resume Levemir 45 units twice a day and add low-dose sliding scale for meal coverage -ADA diet (3) CKD (chronic kidney disease) Current Visit: No Status: Chronic Assessment and Plan: Creatinine is 1.82 near baseline of 1.79. -Avoid nephrotoxic agents -Renally adjusted antibiotics, will plan to de escalate antibiotics once clinical picture improves and risk for sepsis is minimal Continue to monitor fluid status (4) Charcot foot due to diabetes mellitus Current Visit: No Status: Chronic Assessment and Plan: CT reviewed and indicative of charcot foot. Not concerning for OM or septic arthritis. -Likely secondary to DM -F/U with podiatry upon D/C, make appoint prior to D/C -Encouraged good foot hygiene and stressed importance of checking feet for new lesions. (5) Morbid obesity with BMI of 50.0-59.9, adult Current Visit: No Status: Chronic Assessment and Plan: Emphasized lifestyle modifications including DASH/AHA diet -encouraged aerobic activity 150 minutes/week per CDC recommendations (6) HTN (hypertension) Current Visit: No Status: Chronic Assessment and Plan: Resume home medications. -Continue to monitor with B/P and vital checks (7) DVT prophylaxis Current Visit: No Status: Acute Assessment and Plan: Subcutaneous Heparin. - Time Spent with Patient Total time spent is greater than 50% in coordination of care (as documented) at patient's floor/unit and/or counseling patient: 25 - 35 minutes Plan of Care Discussed with: patient Internal Medicine: Result - Labs CBC & Chem 7: 01/10/19 05:01 01/10/19 05:01 Labs: Short CBC 01/10/19 Range/Units 05:01 WBC 4.7 (4.3-11.1) K/mcL Hgb 11.9 L D (12.9-16.9) g/dL Hct 36.8 L (37.5-50.1) % Plt Count 210 (140-400) K/mcL Neutrophils # 3.0 (1.6-8.9) K/mcL BMP 01/10/19 05:01 Sodium 135 L Potassium 4.2 Chloride 104 Carbon Dioxide 26 BUN 26 H Creatinine 1.82 H Glucose 205 H Calcium 9.0 - ABG Interpretation ABG results: PT/INR, D-dimer PT 12.4 Seconds (9.4-12.1) H 01/10/19 05:01 - Impressions Impressions Foot CT 01/09/19 08:56 IMPRESSION: Large tibiotalar, subtalar, talonavicular and calcaneocuboid joint effusions with extensive synovitis. Findings suggest septic arthritis. Progressive collapse of the ankle, hindfoot and midfoot with progressive erosive changes and fragmentation of the distal tibial plafond, talar dome, calcaneus. Sclerosis of the distal tibia, remaining talus, calcaneus and cuboid bones. Findings suggest osteomyelitis. Chronic dislocation of the talonavicular joint. Diffuse periarticular soft tissue swelling suggesting cellulitis. D/ / 01/09/2019 10:28:55 Yovanny Burdick MD / Olivia Weir Interpreting Provider: Yovanny Burdick MD Consult Discharge Plan - Plan Referrals: Dolly Garcia RESPIRATORY CARE INSTRUCTOR [Advanced Practice Nurse] - 01/17/19 1:30 pm <Stephan Gonzalez - Last Filed: 01/10/19 21:09> Hospitalist Progress Note - Encounter Date of Encounter: 01/10/19 - Exam Vitals: Temp Pulse Resp BP Pulse Ox 97.8 F 59 15 137/73 91 01/10/19 19:45 01/10/19 19:45 01/10/19 19:45 01/10/19 19:45 01/10/19 19:45 - Assessment and Plan (1) HTN (hypertension) Current Visit: No Status: Chronic (2) DM2 (diabetes mellitus, type 2) Current Visit: No Status: Chronic (3) DVT prophylaxis Current Visit: No Status: Acute (4) Morbid obesity with BMI of 50.0-59.9, adult Current Visit: No Status: Chronic (5) CKD (chronic kidney disease) Current Visit: No Status: Chronic (6) Cellulitis of right foot Current Visit: Yes Status: Acute - Time Spent with Patient Total time spent is greater than 50% in coordination of care (as documented) at patient's floor/unit and/or counseling patient: Internal Medicine: Result - Labs CBC & Chem 7: 01/10/19 05:01 01/10/19 05:01 Labs: Short CBC 01/10/19 Range/Units 05:01 WBC 4.7 (4.3-11.1) K/mcL Hgb 11.9 L D (12.9-16.9) g/dL Hct 36.8 L (37.5-50.1) % Plt Count 210 (140-400) K/mcL Neutrophils # 3.0 (1.6-8.9) K/mcL BMP 01/10/19 05:01 Sodium 135 L Potassium 4.2 Chloride 104 Carbon Dioxide 26 BUN 26 H Creatinine 1.82 H Glucose 205 H Calcium 9.0 - ABG Interpretation ABG results: PT/INR, D-dimer PT 12.4 Seconds (9.4-12.1) H 01/10/19 05:01 - Attending Attestation I examined this patient and my medical decision-making was reviewed with the Resident Physician. I agree with the documented findings, disposition and treatment plan as described except to the extent set forth below. Patient has no complaints, states infection is doing better. On exam findings consistent with Charcot's foot is noted, and also erythema with edema and some tenderness. VS: reviewed, labs: reviewed, imaging: reviewed, with CT findings concerning for OM and septic arthritis. Podiatry on board, continue Zosyn, holding vanc as levels are high and patient needed dialysis in the past from vancomycin. Obtain MRSA screen, if negative, will keep patient off of vancomycin. If positive, he will have to be placed back on vancomycin. ID will be consulted when services available. Follow-up blood cultures. Prelim wound culture positive for GNR. <Carmine Quintero - Last Filed: 01/10/19 16:07> (2) DM2 (diabetes mellitus, type 2) Qualifiers: Diabetes mellitus manager terminal insulin use: with residential use Diabetes mellitus complication status: with hyperosmolarity Diabetes mellitus complication detail: without coma Qualified Code(s): E11.00 - Type 2 diabetes mellitus with hyperosmolarity without nonketotic hyperglycemic-hyperosmolar coma ([facility]); Z79.4 - manager terminal (current) use of insulin (3) CKD (chronic kidney disease) Qualifiers: Chronic kidney disease stage: stage 3 (moderate) Qualified Code(s): N18.3 - Chronic kidney disease, stage 3 (moderate) (6) HTN (hypertension) Qualifiers: Hypertension type: essential hypertension Qualified Code(s): I10 - Essential (primary) hypertension <Stephan Gonzalez - Last Filed: 01/10/19 21:09> (1) HTN (hypertension) Qualifiers: Hypertension type: essential hypertension Qualified Code(s): I10 - Essential (primary) hypertension (2) DM2 (diabetes mellitus, type 2) Qualifiers: Diabetes mellitus residential insulin use: with manager terminal use Diabetes mellitus complication status: with hyperosmolarity Diabetes mellitus complication detail: without coma Qualified Code(s): E11.00 - Type 2 diabetes mellitus with hyperosmolarity without nonketotic hyperglycemic-hyperosmolar coma ([facility]); Z79.4 - senior care (current) use of insulin (5) CKD (chronic kidney disease) Qualifiers: Chronic kidney disease stage: stage 3 (moderate) Qualified Code(s): N18.3 - Chronic kidney disease, stage 3 (moderate)
--- NOTE | 2019-01-10 16:06 | Electrocardiograph Report ---
[address] [place] [address] Test Date: 2019-01-08 Pat Name: Jhoan Bowen Department: [id number] Room: 3A12 Gender: M [employer] Expert: : [id number] Requested By: Luzmaria See Order Number: [id number] Reading MD: Dolly Crump Measurements Intervals [place] Rate: 91 P: 35 VT: 163 QRS: -26 QRSD: 97 T: 51 QT: 354 QTc: 436 Interpretive Statements Sinus rhythm Borderline left axis deviation Low voltage, precordial leads Consider anterior infarct Electronically Signed On 01-10-2019 16:05:18 EST by Dolly Crump
[2019-01-11] MEDS: Piperacillin/Tazobactam 3.375 GM in 0.9 % Sodium Chloride Mini Bag 100 ML IVPB SCH ×4 (02:38→23:38)
[2019-01-11 02:54] LABS: Basophils % 0.7 %; Eosinophils # 0.3 K/mcL (0.0-0.6); Eosinophils % 6.7 %; Hematocrit 39.9 % (37.5-50.1); Hemoglobin 12.9 g/dL (12.9-16.9); Immature Granulocytes % 0.2 % (0-4); Lymphocytes # 0.9 K/mcL (0.6-4.6); Lymphocytes % 20.7 %; Mean Corpuscular HGB Conc 32.3 g/dL (31.6-35.5); Mean Corpuscular Hemoglobin 28.5 pg (28.0-33.3); Mean Corpuscular Volume 88.3 fL (83.0-100.0); Mean Platelet Volume 9.8 fL (9.4-12.4); Monocytes # 0.4 K/mcL (0.0-1.3); Monocytes % 10.5 %; Neutrophils # 2.6 K/mcL (1.6-8.9); Platelet Count 224 K/mcL (140-400); Red Blood Count 4.52 M/mcL (4.19-5.50); Red Cell Distribution Width 12.6 % (11.5-14.5); Segmented Neutrophils % 61.2 %
[2019-01-11 03:03] LABS: Calcium 8.9 mg/dL (8.6-10.3); Potassium 4.4 mEq/L (3.5-5.1)
[2019-01-11] MEDS: *HR* Heparin 5,000 UNIT/ML VIAL SQ SCH ×3 (05:22→20:37)
[2019-01-11] MEDS: Insulin LISPRO 300 UNITS/3 ML VIAL SQ SCH ×4 (08:18→20:35)
[2019-01-11] MEDS: Insulin DETEMIR 100 UNIT/ML X5UNITS SQ SCH ×2 (08:18→20:37)
[2019-01-11] MEDS: ARIPiprazole 10 MG TABLET PO SCH (08:18)
[2019-01-11] MEDS: amLODIPine 5 MG TABLET PO SCH (08:19)
[2019-01-11] MEDS: Metoprolol XL (24 HR) Succ 50 MG TAB.ER.24H PO SCH (08:19)
[2019-01-11] MEDS: Cyanocobalamin (B-12) 1,000 MCG TABLET PO SCH (08:19)
[2019-01-11] MEDS: Gabapentin 400 MG CAPSULE PO SCH ×3 (08:19→20:37)
--- NOTE | 2019-01-11 10:07 | Internal Med Progress Note ---
<Antonio Fisher - Last Filed: 01/11/19 10:05> Hospitalist Progress Note - Encounter Date of Encounter: 01/11/19 Time of Encounter: 10:05 - Subjective Interval History: Patient does not report any acute events overnight. Reports this right foot swelling and redness has decreased. He also did reports less pain. He is able to ambulate independently. He is tolerating his diet. He denies headache, chest pain, shortness of breath, abdominal pain. He is having bowel movements. - Exam Vitals: Temp Pulse Resp BP Pulse Ox 97.5 F L 53 16 125/78 94 01/11/19 06:29 01/11/19 06:29 01/11/19 06:29 01/11/19 06:29 01/11/19 06:29 Exam: General: pleasant, without distress Cardiovascualr: Regular rate and rhythm with no murmur, absent gallops or rubs, absent pedal edema, radial pulses 2 out of 4 Lungs: Clear to auscultation bilaterally, not in respiratory distress Abdomen: Soft nontender, nondistended positive bowel sounds, absent hepatomegaly MSK: Patient's right foot is swollen with mild erythema and tenderness. Erythema is receding from marked line. Left foot without erythema or swelling. Bilateral Charcot foot. Neuro: Alert oriented 3 Psych: good insight and judgment, - Assessment and Plan (1) Cellulitis of right foot Current Visit: Yes Status: Acute Assessment and Plan: Patient's cellulitis is improving CT scan of the left foot read as findings suggestive of septic arthritis and osteomyelitis. CT was reviewed by podiatry who are not concerned for septic arthritis. Venous duplex showed normal right lower extremity deep venous examine acute superficial venous thrombosis in the right lesser saphenous vein. Right foot wound culture growing gram-negative karen of 2 different type. Peripheral blood cultures negative. Anaerobic cultures preliminarily negative. Patient is currently on vancomycin and Zosyn. Plan to D escalated once sensitivities come back and once MRSA swab results. Once discharge patient will follow-up with Dr. Bailon in 1 week. (2) CKD (chronic kidney disease) Current Visit: No Status: Chronic (3) Charcot foot due to diabetes mellitus Current Visit: Yes Status: Chronic Assessment and Plan: Patient has history of CK D3. In the past patient has developed acute kidney injury secondary vancomycin. We will have to monitor serum creatinine closely. MRSA swab was ordered and we will de-escalate if negative. (4) DM2 (diabetes mellitus, type 2) Current Visit: Yes Status: Chronic Assessment and Plan: Patient's glucose level in hospital is at goal. Hemoglobin A1c 7.2 this has increased from 6.9 and Jakob. We will continue insulin Levemir 45 units twice a day and sliding scale insulin. Continue diabetic diet. (5) HTN (hypertension) Current Visit: Yes Status: Chronic Assessment and Plan: Controlled Continue lisinopril and metoprolol and amlodipine (6) Morbid obesity with BMI of 50.0-59.9, adult Current Visit: Yes Status: Chronic Assessment and Plan: Emphasized lifestyle modifications including DASH/AHA diet -encouraged aerobic activity 150 minutes/week per CDC recommendations DVT Prophylaxis: heparin SQ - Time Spent with Patient Total time spent is greater than 50% in coordination of care (as documented) at patient's floor/unit and/or counseling patient: Internal Medicine: Result - Labs CBC & Chem 7: 01/11/19 01:55 01/11/19 01:55 Labs: Short CBC 01/11/19 Range/Units 01:55 WBC 4.2 L (4.3-11.1) K/mcL Hgb 12.9 (12.9-16.9) g/dL Hct 39.9 (37.5-50.1) % Plt Count 224 (140-400) K/mcL Neutrophils # 2.6 (1.6-8.9) K/mcL BMP 01/11/19 01:55 Sodium 139 Potassium 4.4 Chloride 105 Carbon Dioxide 24 BUN 29 H Creatinine 1.94 H Glucose 217 H Calcium 8.9 - ABG Interpretation ABG results: PT/INR, D-dimer PT 12.4 Seconds (9.4-12.1) H 01/10/19 05:01 Consult Discharge Plan - Plan Referrals: Dolly Garcia CONTINUOUS DRYOUT OPERATOR HELPER [Advanced Practice Nurse] - 01/17/19 1:30 pm <Stephan Gonzalez - Last Filed: 01/11/19 18:04> Hospitalist Progress Note - Encounter Date of Encounter: 01/11/19 - Exam Vitals: Temp Pulse Resp BP Pulse Ox 97.6 F 54 14 126/72 93 01/11/19 14:19 01/11/19 14:19 01/11/19 14:19 01/11/19 14:19 01/11/19 14:19 - Assessment and Plan (1) HTN (hypertension) Current Visit: Yes Status: Chronic (2) DM2 (diabetes mellitus, type 2) Current Visit: Yes Status: Chronic (3) DVT prophylaxis Current Visit: No Status: Acute (4) Morbid obesity with BMI of 50.0-59.9, adult Current Visit: Yes Status: Chronic (5) CKD (chronic kidney disease) Current Visit: No Status: Chronic (6) Cellulitis of right foot Current Visit: Yes Status: Acute - Time Spent with Patient Total time spent is greater than 50% in coordination of care (as documented) at patient's floor/unit and/or counseling patient: Internal Medicine: Result - Labs CBC & Chem 7: 01/11/19 01:55 01/11/19 01:55 Labs: Short CBC 01/11/19 Range/Units 01:55 WBC 4.2 L (4.3-11.1) K/mcL Hgb 12.9 (12.9-16.9) g/dL Hct 39.9 (37.5-50.1) % Plt Count 224 (140-400) K/mcL Neutrophils # 2.6 (1.6-8.9) K/mcL BMP 01/11/19 01:55 Sodium 139 Potassium 4.4 Chloride 105 Carbon Dioxide 24 BUN 29 H Creatinine 1.94 H Glucose 217 H Calcium 8.9 - ABG Interpretation ABG results: PT/INR, D-dimer PT 12.4 Seconds (9.4-12.1) H 01/10/19 05:01 - Attending Attestation I examined this patient and my medical decision-making was reviewed with the Resident Physician. I agree with the documented findings, disposition and treatment plan as described except to the extent set forth below. <Antonio Fisherfangrachel - Last Filed: 01/11/19 10:05> (2) CKD (chronic kidney disease) Qualifiers: Chronic kidney disease stage: stage 3 (moderate) Qualified Code(s): N18.3 - Chronic kidney disease, stage 3 (moderate) (4) DM2 (diabetes mellitus, type 2) Qualifiers: Diabetes mellitus superintendent container terminal insulin use: with superintendent container terminal use Diabetes mellitus complication status: with hyperosmolarity Diabetes mellitus complication detail: without coma Qualified Code(s): E11.00 - Type 2 diabetes mellitus with hyperosmolarity without nonketotic hyperglycemic-hyperosmolar coma ([facility]); Z79.4 - [facility] (current) use of insulin (5) HTN (hypertension) Qualifiers: Hypertension type: essential hypertension Qualified Code(s): I10 - Essential (primary) hypertension <Stephan Gonzalez - Last Filed: 01/11/19 18:04> (1) HTN (hypertension) Qualifiers: Hypertension type: essential hypertension Qualified Code(s): I10 - Essential (primary) hypertension (2) DM2 (diabetes mellitus, type 2) Qualifiers: Diabetes mellitus usp insulin use: with superintendent container terminal use Diabetes mellitus complication status: with hyperosmolarity Diabetes mellitus complication detail: without coma Qualified Code(s): E11.00 - Type 2 diabetes mellitus with hyperosmolarity without nonketotic hyperglycemic-hyperosmolar coma ([facility]); Z79.4 - [facility] (current) use of insulin (5) CKD (chronic kidney disease) Qualifiers: Chronic kidney disease stage: stage 3 (moderate) Qualified Code(s): N18.3 - Chronic kidney disease, stage 3 (moderate)
[2019-01-11] MEDS: Nystatin POWDER 30 GM BOTTLE TP SCH ×3 (15:54→20:50)
[2019-01-12] MEDS: *HR* Heparin 5,000 UNIT/ML VIAL SQ SCH ×3 (05:32→20:46)
[2019-01-12] MEDS: Piperacillin/Tazobactam 3.375 GM in 0.9 % Sodium Chloride Mini Bag 100 ML IVPB SCH (08:27)
[2019-01-12] MEDS: Insulin LISPRO 300 UNITS/3 ML VIAL SQ SCH ×4 (08:28→16:26)
[2019-01-12] MEDS: Cyanocobalamin (B-12) 1,000 MCG TABLET PO SCH (08:30)
[2019-01-12] MEDS: Metoprolol XL (24 HR) Succ 50 MG TAB.ER.24H PO SCH (08:30)
[2019-01-12] MEDS: amLODIPine 5 MG TABLET PO SCH (08:30)
[2019-01-12] MEDS: Gabapentin 400 MG CAPSULE PO SCH ×3 (08:30→20:46)
[2019-01-12] MEDS: ARIPiprazole 10 MG TABLET PO SCH (08:32)
[2019-01-12] MEDS: Insulin DETEMIR 100 UNIT/ML X5UNITS SQ SCH ×2 (10:31→20:47)
--- NOTE | 2019-01-12 11:28 | Internal Med Progress Note ---
<Antonio Fisher - Last Filed: 01/12/19 11:26> Hospitalist Progress Note - Encounter Date of Encounter: 01/12/19 Time of Encounter: 11:26 - Subjective Interval History: No acute events overnight. Patient has no complaints today. His right foot erythema is continuing to improve. He is tolerating his diet. - Exam Vitals: Temp Pulse Resp BP Pulse Ox 97.4 F L 56 16 134/75 93 01/12/19 10:40 01/12/19 10:40 01/12/19 10:40 01/12/19 10:40 01/12/19 10:40 Exam: General: pleasant, without distress Cardiovascualr: Regular rate and rhythm with no murmur, absent gallops or rubs, absent pedal edema, radial pulses 2 out of 4 Lungs: Clear to auscultation bilaterally, not in respiratory distress Abdomen: Soft nontender, nondistended positive bowel sounds, absent hepatomegaly MSK: Patient's right foot is swollen with mild erythema and tenderness. Erythema is receding from marked line and improving. Left foot without erythema or swelling. Bilateral Charcot foot. Neuro: Alert oriented 3 Psych: good insight and judgment, - Assessment and Plan (1) Cellulitis of right foot Current Visit: Yes Status: Acute Assessment and Plan: Patient's cellulitis is improving CT scan of the left foot read as findings suggestive of septic arthritis and osteomyelitis. CT was reviewed by podiatry who are not concerned for septic arthritis. Venous duplex showed normal right lower extremity deep venous examine acute supe rficial venous thrombosis in the right lesser saphenous vein. Right foot wound culture growing: Enterobacter cloacae and panteoea agglomerans Peripheral blood cultures negative. Anaerobic cultures preliminarily negative. MRI of right foot is showing less likelihood of septic arthritis or osteomyeli tis. There is medial subcutaneous edema compatible with cellulitis without drainable fluid collection. Patient was Descalated to cefepime. We will consult ID on Sunday for antibiotic recommendations and duration. Once discharge patient will follow-up with Dr. Bailon in 1 week. (2) CKD (chronic kidney disease) Current Visit: Yes Status: Chronic Assessment and Plan: Patient has history of CKD3. In the past patient has developed acute kidney injury secondary vancomycin. Patient's serum creatinines 1.79 today and stable. (3) Charcot foot due to diabetes mellitus Current Visit: Yes Status: Chronic (4) DM2 (diabetes mellitus, type 2) Current Visit: Yes Status: Chronic Assessment and Plan: Patient's glucose level in hospital is at goal. Hemoglobin A1c 7.2 this has increased from 6.9 and Jakob. We will continue insulin Levemir 45 units twice a day and sliding scale insulin. Continue diabetic diet. (5) HTN (hypertension) Current Visit: Yes Status: Chronic Assessment and Plan: Controlled Continue lisinopril and metoprolol and amlodipine (6) Morbid obesity with BMI of 50.0-59.9, adult Current Visit: Yes Status: Chronic Assessment and Plan: Emphasized lifestyle modifications including DASH/AHA diet -encouraged aerobic activity 150 minutes/week per CDC recommendations DVT Prophylaxis: heparin SQ - Time Spent with Patient Total time spent is greater than 50% in coordination of care (as documented) at patient's floor/unit and/or counseling patient: Internal Medicine: Result - Labs CBC & Chem 7: 01/11/19 01:55 01/12/19 09:39 Labs: BMP 01/12/19 09:39 Sodium 140 Potassium 5.0 Chloride 108 H Carbon Dioxide 25 BUN 30 H Creatinine 1.79 H Glucose 204 H Calcium 9.0 - ABG Interpretation ABG results: PT/INR, D-dimer PT 12.4 Seconds (9.4-12.1) H 01/10/19 05:01 - Impressions Impressions Foot MRI 01/11/19 13:37 IMPRESSION: 1. Severe tibiotalar and subtalar fragmentation and articular surface irregularity with moderate tibiotalar and small subtalar joint effusions. Lateral subtalar dislocation and dorsal subluxation of the talonavicular joint with moderate talonavicular degenerative changes. Given the absence of an adjacent soft tissue defect, sinus tract, or abscess findings likely represent Charcot arthropathy. Septic arthritis/osteomyelitis is considered less likely. 2. Medial subcutaneous edema compatible with cellulitis. No drainable fluid collection. D/ / Faisal Boland MD / Faisal Boland MD Interpreting Provider: Faisal Boland MD Consult Discharge Plan - Plan Referrals: Dolly Garcia REGISTERED MEDICAL ASSISTANT [Advanced Practice Nurse] - 01/17/19 1:30 pm <Stephan Gonzalez - Last Filed: 01/12/19 14:20> Hospitalist Progress Note - Encounter Date of Encounter: 01/12/19 - Exam Vitals: Temp Pulse Resp BP Pulse Ox 97.3 F L 58 16 128/80 91 01/12/19 13:46 01/12/19 13:46 01/12/19 13:46 01/12/19 13:46 01/12/19 13:46 - Assessment and Plan (1) HTN (hypertension) Current Visit: Yes Status: Chronic (2) DM2 (diabetes mellitus, type 2) Current Visit: Yes Status: Chronic (3) DVT prophylaxis Current Visit: No Status: Acute (4) Morbid obesity with BMI of 50.0-59.9, adult Current Visit: Yes Status: Chronic (5) CKD (chronic kidney disease) Current Visit: Yes Status: Chronic (6) Cellulitis of right foot Current Visit: Yes Status: Acute - Time Spent with Patient Total time spent is greater than 50% in coordination of care (as documented) at patient's floor/unit and/or counseling patient: Internal Medicine: Result - Labs CBC & Chem 7: 01/11/19 01:55 01/12/19 09:39 Labs: BMP 01/12/19 09:39 Sodium 140 Potassium 5.0 Chloride 108 H Carbon Dioxide 25 BUN 30 H Creatinine 1.79 H Glucose 204 H Calcium 9.0 - ABG Interpretation ABG results: PT/INR, D-dimer PT 12.4 Seconds (9.4-12.1) H 01/10/19 05:01 - Impressions Impressions Foot MRI 01/11/19 13:37 IMPRESSION: 1. Severe tibiotalar and subtalar fragmentation and articular surface irregularity with moderate tibiotalar and small subtalar joint effusions. Lateral subtalar dislocation and dorsal subluxation of the talonavicular joint with moderate talonavicular degenerative changes. Given the absence of an adjacent soft tissue defect, sinus tract, or abscess findings likely represent Charcot arthropathy. Septic arthritis/osteomyelitis is considered less likely. 2. Medial subcutaneous edema compatible with cellulitis. No drainable fluid collection. D/ / Faisal Boland MD / Faisal Boland MD Interpreting Provider: Faisal Boland MD - Attending Attestation I examined this patient and my medical decision-making was reviewed with the Res ident Physician. I agree with the documented findings, disposition and treatment plan as described except to the extent set forth below. ____ <Antonio Fisher - Last Filed: 01/12/19 11:26> (2) CKD (chronic kidney disease) Qualifiers: Chronic kidney disease stage: stage 3 (moderate) Qualified Code(s): N18.3 - Chronic kidney disease, stage 3 (moderate) (4) DM2 (diabetes mellitus, type 2) Qualifiers: Diabetes mellitus technician terminal and repeater insulin use: with custodial use Diabetes mellitus complication status: with hyperosmolarity Diabetes mellitus complication detail: without coma Qualified Code(s): E11.00 - Type 2 diabetes mellitus with hyperosmolarity without nonketotic hyperglycemic-hyperosmolar coma ([facility]); Z79.4 - alf (current) use of insulin (5) HTN (hypertension) Qualifiers: Hypertension type: essential hypertension Qualified Code(s): I10 - Essential (primary) hypertension <Stephan Gonzalez - Last Filed: 01/12/19 14:20> (1) HTN (hypertension) Qualifiers: Hypertension type: essential hypertension Qualified Code(s): I10 - Essential (primary) hypertension (2) DM2 (diabetes mellitus, type 2) Qualifiers: Diabetes mellitus custodial insulin use: with technician terminal and repeater use Diabetes mellitus complication status: with hyperosmolarity Diabetes mellitus complication detai l: without coma Qualified Code(s): E11.00 - Type 2 diabetes mellitus with hyperosmolarity without nonketotic hyperglycemic-hyperosmolar coma ([facility]); Z79.4 - alf (current) use of insulin (5) CKD (chronic kidney disease) Qualifiers: Chronic kidney disease stage: stage 3 (moderate) Qualified Code(s): N18.3 - Chronic kidney disease, stage 3 (moderate)
[2019-01-12] MEDS: Nystatin POWDER 30 GM BOTTLE TP SCH ×3 (16:27→23:04)
[2019-01-12] MEDS ORDERED: Cefepime HCl 2,000 MG in Water for inj. (sterile) 20 ML 20 ML IVP SCH (18:00)
[2019-01-13] MEDS: *HR* Heparin 5,000 UNIT/ML VIAL SQ SCH ×2 (05:49→15:18)
[2019-01-13 05:58] LABS: Basophils % 0.9 %; Eosinophils # 0.3 K/mcL (0.0-0.6); Eosinophils % 6.5 %; Hematocrit 39.9 % (37.5-50.1); Hemoglobin 13.1 g/dL (12.9-16.9); Immature Granulocytes % 0.5 % (0-4); Lymphocytes # 1.1 K/mcL (0.6-4.6); Lymphocytes % 24.9 %; Mean Corpuscular HGB Conc 32.8 g/dL (31.6-35.5); Mean Corpuscular Hemoglobin 28.9 pg (28.0-33.3); Mean Corpuscular Volume 88.1 fL (83.0-100.0); Mean Platelet Volume 10.3 fL (9.4-12.4); Monocytes # 0.4 K/mcL (0.0-1.3); Monocytes % 8.9 %; Neutrophils # 2.5 K/mcL (1.6-8.9); Platelet Count 205 K/mcL (140-400); Red Blood Count 4.53 M/mcL (4.19-5.50); Red Cell Distribution Width 12.7 % (11.5-14.5); Segmented Neutrophils % 58.3 %
[2019-01-13 07:46] LABS: Calcium 9.3 mg/dL (8.6-10.3); Potassium 4.9 mEq/L (3.5-5.1)
[2019-01-13] MEDS: ARIPiprazole 10 MG TABLET PO SCH (08:42)
[2019-01-13] MEDS: Gabapentin 400 MG CAPSULE PO SCH ×2 (08:42→15:18)
[2019-01-13] MEDS: amLODIPine 5 MG TABLET PO SCH (08:43)
[2019-01-13] MEDS: Cyanocobalamin (B-12) 1,000 MCG TABLET PO SCH (08:43)
[2019-01-13] MEDS: Metoprolol XL (24 HR) Succ 50 MG TAB.ER.24H PO SCH (08:43)
[2019-01-13] MEDS: Nystatin POWDER 30 GM BOTTLE TP SCH ×2 (08:46→15:18)
[2019-01-13] MEDS: Insulin LISPRO 300 UNITS/3 ML VIAL SQ SCH ×2 (08:49→11:51)
[2019-01-13] MEDS: Insulin DETEMIR 100 UNIT/ML X5UNITS SQ SCH (08:53)
[2019-01-13] MEDS ORDERED: cefTRIAXone 2,000 MG in 0.9 % Sodium Chloride Mini Bag 100 ML IVPB SCH (09:00)
--- NOTE | 2019-01-13 09:17 | Internal Med Progress Note ---
Hospitalist Progress Note - Encounter Date of Encounter: 01/13/19 - Exam Vitals: Temp Pulse Resp BP Pulse Ox 97.8 F 58 16 130/86 91 01/13/19 07:13 01/13/19 07:13 01/13/19 07:13 01/13/19 07:13 01/13/19 07:13 - Time Spent with Patient Total time spent is greater than 50% in coordination of care (as documented) at patient's floor/unit and/or counseling patient: Internal Medicine: Result - Labs CBC & Chem 7: 01/13/19 04:24 01/13/19 07:16 Labs: Short CBC 01/13/19 Range/Units 04:24 WBC 4.3 (4.3-11.1) K/mcL Hgb 13.1 (12.9-16.9) g/dL Hct 39.9 (37.5-50.1) % Plt Count 205 (140-400) K/mcL Neutrophils # 2.5 (1.6-8.9) K/mcL BMP 01/12/19 01/13/19 09:39 07:16 Sodium 140 137 Potassium 5.0 4.9 Chloride 108 H 108 H Carbon Dioxide 25 30 H BUN 30 H 34 H Creatinine 1.79 H 1.87 H Glucose 204 H 229 H Calcium 9.0 9.3 - ABG Interpretation ABG results: PT/INR, D-dimer PT 12.4 Seconds (9.4-12.1) H 01/10/19 05:01 - Impressions Impressions Foot CT 01/09/19 08:56 IMPRESSION: Large tibiotalar, subtalar, talonavicular and calcaneocuboid joint effusions with extensive synovitis. Findings suggest septic arthritis. Progressive collapse of the ankle, hindfoot and midfoot with progressive erosive changes and fragmentation of the distal tibial plafond, talar dome, calcaneus. Sclerosis of the distal tibia, remaining talus, calcaneus and cuboid bones. Findings suggest osteomyelitis. Chronic dislocation of the talonavicular joint. Diffuse periarticular soft tissue swelling suggesting cellulitis. D/ / 01/09/2019 10:28:55 Yovanny Burdick MD / Olivia Weir Interpreting Provider: Yovanny Burdick MD Consult Discharge Plan - Plan Referrals: Dolly Garcia CNP [Advanced Practice Nurse] - 01/17/19 1:30 pm
[2019-01-13] MEDS ORDERED: Renal Vitamin 1 CAP CAPSULE PO SCH (10:45)
--- NOTE | 2019-01-13 12:20 | Infectious Disease Consult ---
Date of Encounter: 01/13/19 Time of Encounter: 12:16 Assessment and Plan (1) Cellulitis of right foot Status: Acute Assessment and plan: No associated sepsis like picture Causative organism :Enterobacter cloacae pansensitive with exception of Augmen tin/cefazolin and Pantoea agglomerans pansensitive No associated osteomyelitis, sinus tract or an abscess per MRI 01/11/2019 Inflammatory markers not impressively elevated Appreciate podiatry input We will treat this as a skin and soft tissue infection. Continue ceftriaxone for now but may discharge the patient on Omnicef to finish a 14 day course. (2) Charcot foot due to diabetes mellitus Status: Chronic Assessment and plan: Patient with history of osteomyelitis of the right foot tallus and navicularis Causative organism MSSA and group C streptococcus Treated adequately with Rocephin for 6 weeks followed by oral Keflex for quite some time No obvious recurrence of the osteomyelitis (3) DM2 (diabetes mellitus, type 2) Status: Chronic Qualifiers: Diabetes mellitus oysterman insulin use: with skilled nursing use Diabetes mellit complication status: with hyperosmolarity Diabetes mellitus complication detail: without coma Qualified Code(s): E11.00 - Type 2 diabetes mellitus with hyperosmolarity without nonketotic hyperglycemic-hyperosmolar coma [facility]); 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 (4) YESENIA (acute kidney injury) Status: Acute (5) Morbid obesity with BMI of 50.0-59.9, adult Status: Chronic (6) Diabetic foot ulcer Status: Acute Qualifiers: Diabetic foot ulcer location: heel Diabetes mellitus type: type 2 Laterality: right Non-pressure ulcer stage: unspecified non-pressure ulcer stage Qualified Code(s): E11.621 - Type 2 diabetes mellitus with foot ulcer; L97.419 - Non-pressure chronic ulcer of right heel and midfoot with unspecified severity Infectious Disease HPI - Data of Consult Patient: known to practice within the last 3 years Consult date: 01/13/19 Requesting Physician: Stephan Gonzalez MD Primary Care Provider: PCP NONE - Consult Narrative Reason for consult: cellulitis History of present illness: Mr. Bowen is a 48 year old male Patient is a 48-year-old gentleman who presented to [facility] 01/08/2019 with right foot pain and swelling, we are consult treated on 01/13/2019 for right foot cellulitis. Patient is a 48-year-old gentleman with diabetes mellitus type 2, morbid obesity and Charcot arthropathy and history of previous osteomyelitis of the right foot tell us and navicularis with MSSA and group C streptococcus status post I&D of the right ankle/foot, removal of the hardware and bone biopsy. Patient was treated with Rocephin for 6 weeks. Following that patient was treated with Keflex for 2 more weeks. Associated with swelling at the plantar aspect and redness. States that it started around 2 days after he wore a boot that he washed with bleach. Denies any fever/chills, nausea/vomiting, or any drainage from the foot. Since the admission, Patient afebrile, initially tachycardic now bradycardic and no tachypnea. Presenting labs reveal, no leukocytosis, ESR 30, BUN/cr 31/1.79 and lactic acidosis 2.3. MRSA screen positive. Blood cultures no growth todate. Right foot culture positive for Enterobacter cloacae pansensitive with exception of Augmentin/cefazolin and Pantoea agglomerans pansensitive. Full MRI 01/11/2019 reveals likely Charcot arthropathy. Septic arthritis/osteomyelitis is considered less likely. Patient was started on cefepime and then changed to ceftriaxone. We were asked to evaluate the patients make further recommendations. CC: Stephan Gonzalez MD Past Med Surg Social Fam HX - Past Medical History Medical history: arthritis, asthma, diabetes, hypertension, renal disease, other Additional medical history: sleep apnea Psychiatric history: anxiety, depression - Past Surgical History Surgical History: knee replacement, orthopedic, other, other Additional surgical history: right total knee replacement,rt ankle. shoulder surgery. KIDNESY STONRE REMOVAL. RIGHT KNEE SCOPE X2. TOE DEBRIDEMENT. RIGHT FIBILLA. 11/02/17 R FOOT/ANKLE FUSION W/POSSIBLE HARDWARE USAGE @[facility] W/DR MERCER - Social History Smoking Status: Never smoker Smokeless Tobacco Status: No Alcohol use: none Drug use: none - Family History Father Adopted: No Family Member Ethnicity: Non- Living Status: Still Living Hx Family Cardiac Disorders: Yes (father quad bypass) Hx Family Respiratory Disorders: Yes (father) Hx Family Cancer: No Hx Family GI Disorders: No Hx Family Genitourinary Disorders: No Hx Family Endocrine Disorder: Yes (mother and father dm mother thyroid) Hx Family Musculoskeletal Disorders: No Hx Family Neuromuscular Disorders: No Hx Family Neurologic Disorders: No Hx Family HEENT Disorders: Yes (father born with one ear.) Hx Family Autoimmune Disorders: No Hx Family Reproductive Disorders: No Hx Family Psychosocial Disorders: No Hx Family Medical Disorders: No Mother Adopted: No Family Member Ethnicity: Non- Living Status: Still Living Hx Family Cardiac Disorders: No Hx Family Respiratory Disorders: No Hx Family Cancer: No Hx Family GI Disorders: No Hx Family Endocrine Disorder: No Hx Family Neuromuscular Disorders: No Hx Family Neurologic Disorders: No Hx Family HEENT Disorders: No Hx Family Autoimmune Disorders: No Infectious Disease-CN:Meds RX: Insulin Glargine [Lantus] 45 unit SQ BID 01/19/17 [History] RX: ARIPiprazole [Abilify] 10 mg PO DAILY 07/27/17 [History] RX: Buspirone HCl [Buspar] 30 mg PO BID 07/27/17 [History] RX: Glimepiride [Amaryl] 4 mg PO QAM 07/27/17 [History] RX: Allopurinol [Zyloprim 100 MG] 100 mg PO DAILY tablet 11/07/17 [Rx] RX: Cyanocobalamin (B-12) [Vitamin B12] 1,000 mcg PO DAILY tablet 11/07/17 [Rx] RX: Gabapentin [Neurontin] 400 mg PO TID 30 Days #90 capsule 11/07/17 [Rx] RX: Ergocalciferol (VITAMIN D2) [Drisdol (50,000 Unit)] 50,000 unit PO TU 04/08/18 [History] RX: amLODIPine [Norvasc] 10 mg PO DAILY tablet 04/24/18 [Rx] RX: Lisinopril [Zestril] 5 mg PO DAILY #30 tablet 04/26/18 [Rx] RX: B Complex W-C No.20/Folic Acid [Virt-Caps Softgel] 1 mg PO DAILY 01/10/19 [History] RX: Insulin ASPART [NovoLOG] 7 - 10 units SQ TID MDD PER SLIDING SCALE 01/10/19 [History] RX: Metoprolol Tartrate 50 mg PO DAILY 01/10/19 [History] RX: Paroxetine HCl [Paxil Cr] 37.5 mg PO QAM 01/10/19 [History] RX: Tizanidine HCl 4 mg PO HS PRN 01/10/19 [History] RX: Tramadol HCl [Ultram] 50 mg PO TID PRN 01/10/19 [History] Cefdinir [Omnicef] 300 mg PO BID 9 Days #18 capsule 01/13/19 [Rx] RX: Nystatin POWDER [Nystop] 1 appl TP TID bottle 01/13/19 [Rx] RX: Renal Vitamin [Renal Caps Softgel] 1 cap PO DAILY 30 Days #30 capsule 01/13/19 [Rx] Allergy/AdvReac Type Severity Reaction Status Date / Time No Known Allergies Allergy Verified 01/10/19 11:45 Review of systems: 10 point review of systems done, negative other for what is mentioned in history of present illness Exam - Constitutional Vitals: Temp Pulse Resp BP Pulse Ox 98.4 F 54 16 134/79 91 01/13/19 10:53 01/13/19 10:53 01/13/19 10:53 01/13/19 10:53 01/13/19 10:53 General appearance: cooperative, no febrile - Head Head exam: Present: atraumatic, normocephalic - Eye Eye exam: Present: EOMI, PERRL - Respiratory Respiratory exam: Present: CTAB. Absent: wheezes - Cardiovascular Cardiovascular exam: Present: RRR, +S1, +S2 - GI/Abdominal GI/Abdominal exam: Present: soft. Absent: tenderness - Extremities Exam Additional comments: Wound wrap. We will ask podiatry to send us a picture - Neurological Exam Neurological exam: Present: alert, oriented X3 Infectious Disease CN: Results - Labs CBC & Chem 7: 01/13/19 04:24 01/13/19 07:16 Cultures: Cultures 01/08/19 22:45 Anaerobic Culture - Preliminary Right Foot At this time, no anaerobic growth is present. The culture will be finalized after 5 days of incubation. 01/08/19 22:45 Wound Culture - Final Right Foot Enterobacter cloacae complex Pantoea agglomerans 01/08/19 22:49 Blood Culture - Preliminary Peripheral Venipuncture Culture is incubating and being continuously monitored for growth. Final report to follow. 01/08/19 22:45 Blood Culture - Preliminary Peripheral Venipuncture Culture is incubating and being continuously monitored for growth. Final report to follow. Serology: Serology 01/10/19 Range/Units 10:25 Nasal Screen MRSA (PCR) Positive A (Negative) Consult Discharge Plan - Plan Instructions: Cellulitis (DC), Diabetes Mellitus Type 2 in Adults (DC) Additional Instructions: Wash your right lower extremity with soap and water and place lotion to the foot daily to prevent cracking Continue your antibiotic, cefdinir (omnicef) twice a day for 9 days. Continue wearing your boots and do not bear weight on your right leg Follow up with Podiatry, Dr. Mercer in 1 week as scheduled. Continue your other medications as prescribed. Follow up with your primary care physician in 48 hours. Referrals: Dolly Garcia CNP [Advanced Practice Nurse] - 01/17/19 1:30 pm Prescriptions: Cefdinir [Omnicef] 300 mg PO BID 9 Days #18 capsule RX: Renal Vitamin [Renal Caps Softgel] 1 cap PO DAILY 30 Days #30 capsule
--- NOTE | 2019-01-13 13:16 | Discharge Summary ---
<Kesha Herring M - Last Filed: 01/13/19 14:06> - NOTES TO OUTPATIENT PROVIDER Notes to Outpatient Provider: Will continue Omnicef to finish 14 day course of antibiotic for R foot cellulitis. Follow up as scheduled with Podiatry on 01/28/19 Orders not resulted at time of discharge: Pending orders 01/08/19 22:49 Culture,Blood [BC] Stat 01/09/19 00:29 Culture,Anaerobic [RM] Stat Date of Encounter: 01/13/19 Time of Encounter: 09:40 - Discharge Diagnosis (1) Cellulitis of right foot Priority: Primary Status: Acute Assessment and Plan: Resolving CT scan of the left foot read as findings suggestive of septic arthritis and osteomyelitis. CT was reviewed by podiatry who are not concerned for septic arthritis. Venous duplex showed normal right lower extremity deep venous examine acute superficial venous thrombosis in the right lesser saphenous vein. Right foot wound culture growing: Enterobacter cloacae and panteoea agglomerans Peripheral blood cultures negative. Anaerobic cultures preliminarily negative. MRI of right foot is showing less likelihood of septic arthritis or osteomyelitis. There is medial subcutaneous edema compatible with cellulitis without drainable fluid collection. 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 Bowen is a 48 year old male with past medical history of charcot arthropathy, diabetes mellitus, previous history of right foot abscess and osteomyelitis, chronic kidney disease presenting to the emergency department with progressive worsening right foot pain associated with swelling and redness of the plantar aspect of his foot. Symptoms started 2 days after he wore a boot that he washed with [place]. Patient was hemodynamically stable in the emergency department and afebrile. BUN and creatinine is at its baseline at 1.79. X-ray was obtained in the emergency department that showed right foot compatible with ongoing charcot arthropathy and diffuse soft tissue swelling. The patient received a dose of vancomycin and Zosyn and was admitted for further management. Podiatry was consulted. CT was obtained and was suggestive of septic arthritis and osteomyelitis. CT was reviewed by podiatry who were not concern for septic arthritis. The patient also had a venous duplex that showed normal right lower extremity deep venous examination. There was however an acute superficial venous thrombosis in the right lesser saphenous vein. The patient received a right foot wound culture as well as 2 peripheral blood cultures. MRI of the right foot showed less likelihood of septic arthritis or osteomyelitis. There is medial subcutaneous edema compatible with cellulitis without drainable fluid collection. Blood cultures were negative. Anaerobic cultures are preliminary negative. The right foot wound culture did grow enterobacter cloacae and panteoea agglomerans. The patient's antibiotics were Descalated to cefepime he did experience significant nausea after receiving cefepime so this was switched to Rocephin. Infectious disease was consulted. They recommend completing a 14 day course of antibiotics and to switch to Omnicef on discharge. The patient will do daily washes with soap and water, place lotion on his foot. He is to be nonweightbearing of his right extremity. He will wear boots provided to him. Patient will follow up with podiatry in a week. He will receive home health care. Patient is medically stable for discharge home. All questions have been answered and he is agreeable to plan of care. - Time Spent with Patient Total time spent providing and/or coordinating discharge services: - Discharge Medications Prescriptions: New Cefdinir [Omnicef] 300 mg PO BID 9 Days #18 capsule Nystatin POWDER [Nystop] 1 appl TP TID bottle Renal Vitamin [Renal Caps Softgel] 1 cap PO DAILY 30 Days #30 capsule Continue Insulin Glargine [Lantus] 45 unit SQ BID Buspirone HCl [Buspar] 30 mg PO BID Glimepiride [Amaryl] 4 mg PO QAM ARIPiprazole [Abilify] 10 mg PO DAILY Cyanocobalamin (B-12) [Vitamin B12] 1,000 mcg PO DAILY tablet Allopurinol [Zyloprim 100 MG] 100 mg PO DAILY tablet Gabapentin [Neurontin] 400 mg PO TID 30 Days #90 capsule Ergocalciferol (VITAMIN D2) [Drisdol (50,000 Unit)] 50,000 unit PO TU amLODIPine [Norvasc] 10 mg PO DAILY tablet Lisinopril [Zestril] 5 mg PO DAILY #30 tablet B Complex W-C No.20/Folic Acid [Virt-Caps Softgel] 1 mg PO DAILY Insulin ASPART [NovoLOG] 7 - 10 units SQ TID MDD PER SLIDING SCALE Metoprolol Tartrate 50 mg PO DAILY Paroxetine HCl [Paxil Cr] 37.5 mg PO QAM Tizanidine HCl 4 mg PO HS PRN PRN Reason: Muscle Spasm Tramadol HCl [Ultram] 50 mg PO TID PRN PRN Reason: Pain Home Medications: Insulin Glargine [Lantus] 45 unit SQ BID 01/19/17 [History] ARIPiprazole [Abilify] 10 mg PO DAILY 07/27/17 [History] Buspirone HCl [Buspar] 30 mg PO BID 07/27/17 [History] Glimepiride [Amaryl] 4 mg PO QAM 07/27/17 [History] Allopurinol [Zyloprim 100 MG] 100 mg PO DAILY tablet 11/07/17 [Rx] Cyanocobalamin (B-12) [Vitamin B12] 1,000 mcg PO DAILY tablet 11/07/17 [Rx] Gabapentin [Neurontin] 400 mg PO TID 30 Days #90 capsule 11/07/17 [Rx] Ergocalciferol (VITAMIN D2) [Drisdol (50,000 Unit)] 50,000 unit PO TU 04/08/18 [History] amLODIPine [Norvasc] 10 mg PO DAILY tablet 04/24/18 [Rx] Lisinopril [Zestril] 5 mg PO DAILY #30 tablet 04/26/18 [Rx] B Complex W-C No.20/Folic Acid [Virt-Caps Softgel] 1 mg PO DAILY 01/10/19 [History] Insulin ASPART [NovoLOG] 7 - 10 units SQ TID MDD PER SLIDING SCALE 01/10/19 [History] Metoprolol Tartrate 50 mg PO DAILY 01/10/19 [History] Paroxetine HCl [Paxil Cr] 37.5 mg PO QAM 01/10/19 [History] Tizanidine HCl 4 mg PO HS PRN 01/10/19 [History] Tramadol HCl [Ultram] 50 mg PO TID PRN 01/10/19 [History] Cefdinir [Omnicef] 300 mg PO BID 9 Days #18 capsule 01/13/19 [Rx] Nystatin POWDER [Nystop] 1 appl TP TID bottle 01/13/19 [Rx] Renal Vitamin [Renal Caps Softgel] 1 cap PO DAILY 30 Days #30 capsule 01/13/19 [Rx] Allergies/Adverse Reactions: Allergy/AdvReac Type Severity Reaction Status Date / Time No Known Allergies Allergy Verified 01/10/19 11:45 Date of admission: 01/09/19 01:33 Primary care physician: PCP NONE Consults: 01/09/19 07:58 Consult to Podiatry [CONS] Routine Consulting Provider: Pod[facility] Reason for Consult: R foot cellulitis on the plantar aspect, hx of Charcot arthropathy and osteomyelitis Call Completed: Yes 01/13/19 08:46 Consult to Infectious Diseases [CONS] Routine Consulting Provider: [facility] Reason for Consult: R foot cellulitis Call Completed: Yes Discharging clinician: Kesha Herring Anticipated date of discharge: 01/13/19 - Constitutional Vitals: Temp Pulse Resp BP Pulse Ox 98.4 F 54 16 134/79 91 01/13/19 10:53 01/13/19 10:53 01/13/19 10:53 01/13/19 10:53 01/13/19 10:53 General appearance: Present: A&O X 3, pleasant, no acute distress Exam: General: laying in bed, no acute distress HEENT: normocephalic, atraumatic, normal conjunctiva, oral mucosa moist Cardiac: RRR, no murmur, no pedal edema Lungs: cTA bilaterally without wheezing or rhonchi Abdomen: soft, nontender, nondistended MSK: Right foot swelling on dorsum of foot and around ankle with erythema receding minimally from marked line. warm, no tenderness. Bilateral charcot foot Neuro: AAOx3, decreased sensation bilateral feet due to diabetic neuropathy Skin: as above, warm, dry Psych: normal mood and affect - Patient Status Disposition: Home, Self-Care Condition: Good Functional capacity at discharge: uses cane/walker (nonweight bearing to RLE) Overall status at discharge: patient is progressing back to baseline - Ambulatory Orders Ambulatory Orders: Basic Metabolic Panel [CHEM] Time Frame: 1 Week, Location: Determined By Patient - Discharge Instructions Instructions: Cellulitis (DC), Diabetes Mellitus Type 2 in Adults (DC) Follow Up With: Dolly Garcia DRY ROLLER [Advanced Practice Nurse] - 01/17/19 1:30 pm Additional Instructions: Wash your right lower extremity with soap and water and place lotion to the foot daily to prevent cracking Continue your antibiotic, cefdinir (omnicef) twice a day for 9 days. Continue wearing your boots and do not bear weight on your right leg Follow up with Podiatry, Dr. Mercer in 1 week as scheduled. Continue your other medications as prescribed. Follow up with your primary care physician in 48 hours. 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 insulin use: with shelter use Diabetes mellitus complication status: with hyperosmolarity Diabetes mellitus complication detail: without coma Qualified Code(s): E11.00 - Type 2 diabetes mellitus with hyperosmolarity without nonketotic hyperglycemic-hyperosmolar coma ([facility]); Z79.4 - half-way (current) use of insulin (3) DVT prophylaxis Status: Acute (4) Morbid obesity with BMI of 50.0-59.9, adult Status: Chronic (5) CKD (chronic kidney disease) Status: Chronic Qualifiers: Chronic kidney disease stage: stage 3 (moderate) Qualified Code(s): N18.3 - Chronic kidney disease, stage 3 (moderate) (6) Cellulitis of right foot Status: Acute Hospital course: Mr. Bowen is a 48 year old male - Time Spent with Patient Total time spent providing and/or coordinating discharge services: Date of admission: 01/09/19 01:33 Primary care physician: PCP NONE Consults: 01/09/19 07:58 Consult to Podiatry [CONS] Routine Consulting Provider: [facility] Reason for Consult: R foot cellulitis on the plantar aspect, hx of Charcot arthropathy and osteomyelitis Call Completed: Yes 01/13/19 08:46 Consult to Infectious Diseases [CONS] Routine Consulting Provider: [facility] Reason for Consult: R foot cellulitis Call Completed: Yes - Constitutional Vitals: Temp Pulse Resp BP Pulse Ox 98.3 F 59 18 127/80 94 01/13/19 14:40 01/13/19 14:40 01/13/19 14:40 01/13/19 14:40 01/13/19 14:40 - Attending Attestation I examined this patient and my medical decision-making was reviewed with the Resident Physician. I agree with the documented findings, disposition and treatment plan as described except to the extent set forth below.
--- NOTE | 2019-01-13 13:35 | Physician Discharge Referral ---
Home Health/Hosp Referral Info Transfer to: Home Health Provider in Charge Post Discharge: PCP - Diagnosis (1) Cellulitis of right foot Priority: Primary Status: Acute (2) CKD (chronic kidney disease) Priority: Secondary Status: Chronic (3) Charcot foot due to diabetes mellitus Priority: Secondary Status: Chronic (4) HTN (hypertension) Priority: Secondary Status: Chronic (5) DM2 (diabetes mellitus, type 2) Priority: Secondary Status: Chronic (6) Morbid obesity with BMI of 50.0-59.9, adult Priority: Secondary Status: Chronic - Respiratory Orders Oxygen / L per min (CPAP at night) Smoking Cessation: Smoking cessation has been advised. For more information, call the [employer] Tobacco Quit Line at 6-847-UGPM-NOW. - Diet/Nutrition Diet/Nutrition Orders: No Concentrated Sweets (Diabetic diet) - Activity Activity Orders: Walker (walker or cane. No weight bearing on the right) - Services Needed Following services are medically necessary services: Nursing, Home Health Aide Home Care Orders: non weight bearing of RLE Wash RLE with soap and water and place lotion to foot to prevent cracking 9 more days of antibiotics, cefdinir BID. - Transfer Medications Prescriptions: Cefdinir [Omnicef] 300 mg PO BID 9 Days #18 capsule Renal Vitamin [Renal Caps Softgel] 1 cap PO DAILY 30 Days #30 capsule Home Medications: Insulin Glargine [Lantus] 45 unit SQ BID 01/19/17 [History] ARIPiprazole [Abilify] 10 mg PO DAILY 07/27/17 [History] Buspirone HCl [Buspar] 30 mg PO BID 07/27/17 [History] Glimepiride [Amaryl] 4 mg PO QAM 07/27/17 [History] Allopurinol [Zyloprim 100 MG] 100 mg PO DAILY tablet 11/07/17 [Rx] Cyanocobalamin (B-12) [Vitamin B12] 1,000 mcg PO DAILY tablet 11/07/17 [Rx] Gabapentin [Neurontin] 400 mg PO TID 30 Days #90 capsule 11/07/17 [Rx] Ergocalciferol (VITAMIN D2) [Drisdol (50,000 Unit)] 50,000 unit PO TU 04/08/18 [History] amLODIPine [Norvasc] 10 mg PO DAILY tablet 04/24/18 [Rx] Lisinopril [Zestril] 5 mg PO DAILY #30 tablet 04/26/18 [Rx] B Complex W-C No.20/Folic Acid [Virt-Caps Softgel] 1 mg PO DAILY 01/10/19 [History] Insulin ASPART [NovoLOG] 7 - 10 units SQ TID MDD PER SLIDING SCALE 01/10/19 [History] Metoprolol Tartrate 50 mg PO DAILY 01/10/19 [History] Paroxetine HCl [Paxil Cr] 37.5 mg PO QAM 01/10/19 [History] Tizanidine HCl 4 mg PO HS PRN 01/10/19 [History] Tramadol HCl [Ultram] 50 mg PO TID PRN 01/10/19 [History] Cefdinir [Omnicef] 300 mg PO BID 9 Days #18 capsule 01/13/19 [Rx] Nystatin POWDER [Nystop] 1 appl TP TID bottle 01/13/19 [Rx] Renal Vitamin [Renal Caps Softgel] 1 cap PO DAILY 30 Days #30 capsule 01/13/19 [Rx] Allergies/Adverse Reactions: Allergy/AdvReac Type Severity Reaction Status Date / Time No Known Allergies Allergy Verified 01/10/19 11:45 Certification: Further, I certify that my clinical findings support that this patient is homebound (i.e. absences from home require considerable and taxing effort and are for medical reasons or hinduism services or infrequently or short duration when for other reasons) because: Homebound Reason: Patient requires assistance of a person or device to safely leave home, Post-surgery restriction and or conditions limit ability to leave home Attestation: My signature below is to certify that this patient is under my care and that I, or nurse practitioner, or a physician's library circulation assistant working with me, has a [id number] encounter with this patient.
[2019-01-13 14:41] VITALS: BP 127/80
== END 2019-01-13 17:58 | disposition home or self-care (01) ==
LOC: EMEROOARM 20:24 → 2SOUTHHOLD 20:24 → SUATTDRO 01-09 01:33 → 2SOUTHHOLD 01-09 01:46 → 3ANU 01-09 16:42
PROVIDERS: ADMIT Internal Medicine; ATTEND Student in an Organized Health Care Education/Training Program

== ENCOUNTER 2019-04-03 10:18 | Inpatient (IN) ==
[2019-04-03] MEDS ORDERED: CeFAZolin Syr 2,000MG/20 ML 2,000 MG/20 ML SYRINGE IVPB ONE (10:31)
[2019-04-03] MEDS ORDERED: Famotidine 20 MG/2 ML VIAL IVP ONE (10:44)
[2019-04-03] MEDS ORDERED: Pregabalin 75 MG CAPSULE PO ONE (10:44)
[2019-04-03] MEDS ORDERED: Celecoxib 200 MG CAPSULE PO ONE (10:45)
[2019-04-03] MEDS ORDERED: Ringers Solution, Lactated 1,000 ML IVC SCH ×2 (10:45→17:15)
[2019-04-03] MEDS ORDERED: traMADol 50 MG TABLET PO ONE (10:47)
--- NOTE | 2019-04-03 11:05 | Anesthesia Evaluation PreOp ---
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) Other Medical History: Diabetes Type II, Other (Morbid Obesity) Anesthesia History: No Prior Anesthetic Complications Alcohol Use: none Drug use: none Medications and Allergies Insulin Glargine [Lantus] 45 unit SQ BID 01/19/17 [History] Buspirone HCl [Buspar] 30 mg PO BID 07/27/17 [History] Glimepiride [Amaryl] 4 mg PO QAM 07/27/17 [History] Allopurinol [Zyloprim 100 MG] 100 mg PO DAILY tablet 11/07/17 [Rx] Cyanocobalamin (B-12) [Vitamin B12] 1,000 mcg PO DAILY tablet 11/07/17 [Rx] Gabapentin [Neurontin] 400 mg PO TID 30 Days #90 capsule 11/07/17 [Rx] Ergocalciferol (VITAMIN D2) [Drisdol (50,000 Unit)] 50,000 unit PO TU 04/08/18 [History] amLODIPine [Norvasc] 10 mg PO DAILY tablet 04/24/18 [Rx] Lisinopril [Zestril] 5 mg PO DAILY #30 tablet 04/26/18 [Rx] B Complex W-C No.20/Folic Acid [Virt-Caps Softgel] 1 mg PO DAILY 01/10/19 [Hist ory] Insulin ASPART [NovoLOG] 7 - 10 units SQ TID MDD PER SLIDING SCALE 01/10/19 [History] Metoprolol Tartrate 50 mg PO DAILY 01/10/19 [History] Paroxetine HCl [Paxil Cr] 37.5 mg PO QAM 01/10/19 [History] Tizanidine HCl 4 mg PO HS PRN 01/10/19 [History] Tramadol HCl [Ultram] 50 mg PO TID PRN 01/10/19 [History] Allergy/AdvReac Type Severity Reaction Status Date / Time No Known Allergies Allergy Verified 02/12/19 08:11 - Meds/Allergy Pre-op Review Medications Reviewed: Yes Allergies Reviewed: Yes Beta Blockers on Current Med List: Yes (Metoprolol today) Anesthesia Results - Labs Laboratory Tests 03/21/19 03/21/19 10:57 10:57 Hgb 14.2 Hct 44.3 Plt Count 276 Sodium 141 Potassium 4.1 BUN 26 H Creatinine 1.78 H - Imaging EKG: report reviewed (SR) Anesthesia Exam O2 Sat Height 1.85 m Height 1.85 m Weight 167.829 kg Weight 167.829 kg O2 Sat by Pulse Oximetry 95 Vital Signs Temp Pulse Resp BP Pulse Ox 97.9 F 92 18 158/104 95 04/03/19 10:39 04/03/19 10:39 04/03/19 10:39 04/03/19 10:39 04/03/19 10:39 Height: 6'1 Weight: 370 lbs NPO (# of Hours): MN Pain Scale: 0 - HEENT Pupil (Motor): Pupils equal, EOMI Mallampati: III Teeth: Missing Oral Opening: Less than or equal to 3 - 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
[2019-04-03] MEDS ORDERED: Lidocaine -MPF 2% 2 ML VIAL ONE (11:08)
[2019-04-03] MEDS ORDERED: *HR* Midazolam HCl 2 MG/2 ML VIAL ONE (11:08)
[2019-04-03] MEDS ORDERED: *HR* Rocuronium Bromide 50 MG/5 ML VIAL ONE (11:08)
[2019-04-03] MEDS ORDERED: Dexamethasone 4 MG/ML VIAL ONE (11:08)
[2019-04-03] MEDS ORDERED: *HR* FentaNYL (PF) 100 MCG/2 ML VIAL ONE (11:08)
[2019-04-03] MEDS ORDERED: Lidocaine -MPF 4% 5 ML AMPUL ONE (11:08)
[2019-04-03] MEDS ORDERED: Ondansetron 4 MG/2 ML VIAL ONE (11:08)
[2019-04-03] MEDS ORDERED: *HR* Propofol 200 MG/20 ML VIAL IVP ONE ×2 (11:08→12:02)
[2019-04-03] MEDS ORDERED: *HR* Succinylcholine 200 MG/10 ML VIAL IVP ONE (11:08)
[2019-04-03] MEDS ORDERED: Bupivacaine/EPI 1:200k 0.25%PF 30 ML VIAL ONE (12:30)
--- NOTE | 2019-04-03 12:48 | History & Physical Report ---
Date of Encounter: 04/03/19 Time of Encounter: 12:25 24 Hour HP Update - Instructions Instructions: If the History and Physical is less than 30 days old and was completed prior to A.M. admission and or procedure and has NOT been updated on calendar day of procedure please complete this update prior to performing procedure. - Update Patient reports changes in Medical Condition: No Changes in examination, assessment, or condition: No Changes in Medication: No Preop tests/diagnostics Reviewed: Yes Surgery Remains Indicated: Yes Consent for Planned Operative Procedure(s) Verified: Yes - Attending Attestation proceed
[2019-04-03] MEDS ORDERED: Metoclopramide 10 MG/2 ML VIAL ONE (13:00)
[2019-04-03] MEDS ORDERED: EPHEDrine 50 MG/ML VIAL ONE (13:24)
[2019-04-03] MEDS ORDERED: *HR* HYDROMORPHONE 2 MG/ML VIAL ONE (13:52)
--- NOTE | 2019-04-03 16:52 | Anesthesia Evaluation Post Op ---
Date of Encounter: 04/03/19 Time of Encounter: 17:05 - Vital Signs Vital Signs: Vital Signs/O2 Sat/Glucose, Most Current Temp Pulse Resp BP Pulse Ox 04/03/19 16:45 74 16 136/85 95 04/03/19 16:35 71 16 143/91 93 04/03/19 16:25 98.4 F 76 16 160/79 97 - Lungs Lungs: Clear Ascult./Percussion - Airway Airway: Non-obstructed - Cardiovascular Regular Rate - Mental Status Mental Status: Alert & Oriented, Answers Appropriately - Pain Pain Scale: 0 - Nausea Vomiting Nausea Vomiting: Not Present - Hydration Hydration: Ice chips - Discharge PostOp Status: Transfer Patient to floor
--- NOTE | 2019-04-03 17:13 | Operative Note ---
Date of procedure: 04/03/19 Pre-op diagnosis: Right charcot foot/ankle dislocation Post-op diagnosis: same Procedure: right ankle arthrodesis right talectomy calcaneocuboid joint arthrodesis Implants: biomet phoenix 10mm IM nail extremity medical charcot beams 6.5mm and 5.5mm biofuse bone graft Complications: none Anesthesia: GETA Local Anesthetics: 0.25% Sensorcaine HCL with Epinephrine 1:200,000 SubQ (cc) Surgeon: Russell Mercer Was there an health care legal assistant present: No Estimated blood loss (cc): 120 Tourniquet Time (Minutes): 120 Specimen: none Condition: stable Disposition: PACU Procedure in Detail: Indications: 48 year old diabetic male with history of charcot and previous infection had charcot and instability of the hindfoot and ankle of the right LE. Foot was not braceable due to deformity and dislocation of the calcaneus. nature of the above procedure, risks versus muna of surgery and his condition were discussed at length including but not limited to infection bleed tingling nerve damage loss of leg blood clot pulmonary embolism and delayed or nonunion of bone wound healing problems and need for leg amputation and loss of functionality lack of procedure to her to produce desired outcome need for hardware removal etc. No guartantees made as to the outcome of any procedure or that his leg is salvagable and it was explained that he can end up with an amputation of the leg. all questions were answered a informed consent was signed. Patient had negative indium scan and negative bone biopsy. Patient understood he will be nonweightbearing on the right lower extremity for 3 months or longer. The patient was brought in the operating room placed in the prone position on the operating room table. Right lower extremity was scrubbed prepped and draped in the usual sterile fashion. Thigh tourniquet inflated to 300 mmHg. The following procedures then began. Right talectomy. Attention was directed the posterior aspect of the patient's right leg where a #15 blade was used to make an incision which was in a lazy S formation full-thickness down to the level of the Achilles tendon. The Achilles tendon was resected. Blunt dissection continued and care was taken to avoid neurovascular structures. The Bovie was used to cauterize all traversing veins. Once down to the level of the calcaneus and soft tissue was freed from the posterior aspect of the calcaneus and the distal aspect of the tibia. There was a remaining portion of the talus from the Charcot process medially which was inhibiting the reduction of the calcaneus under the talus and the remaining part of the talus was excised. The heel bone was then more freely movable and able to be moved under the leg. Right ankle arthrodesis (tibiocalcaneal). The sagittal saw was used to resect the fibrous tissue from the distal aspect of the tibia and the dorsal aspect of the calcaneus until there was bleeding bone present on both surfaces. Biofreeze bone graft was put into the arthrodesis site. The Nemo intramedullary 10mm x 180mm nail nail was utilized using standard technique for a tibiocalcaneal type fusion. Proximal screws were put in first followed by the distal screws. The bone had been temporarily pinned into good position and alignment with the ankle in neutral position and the second digit in line with the patella. Temporary fixation was removed excellent reduction of the calcaneus under the tibia had been achieved with apposition of the fusion zones. C-arm was used to confirm position and alignment. The arthrodesis zone was felt to be stable. The attention was then directed to the patient's midfoot/forefoot. Right calcaneal cuboid arthrdesis. With attention directed to the lateral aspect of the midfoot the patient and #15 blade was used to make an incision C- arm was used to confirm the position of alignment of a guidewire inserted across the calcaneocuboid joint to provide stabilization of the lateral column. Next a 5.5 mm extremity medical been was thrown across the calcaneocuboid joint. Attention was then directed medially to the first metatarsal #15 blade was used to make an incision which was deepened through blunt dissection and guidewire thrown into the first metatarsal followed by 6.5 mm Charcot beam used to stabilize the medial column. C-arm was used to confirm position and alignment of hardware and clinically the foot was stable with the calcaneus under the tibia. Deformity was not able to be reproduced. Deep and subcutaneous tissues were closed with 2-0 Vicryl and the skin reapproximated with annette and postoperative bandaging included Xeroform, 4 x 4 gauze Kerlix Sally and an adequately padded posterior splint. Patient given strict instructions to remain nonweightbearing to the right lower extremity. P atient admitted postoperatively and will be set up for rehabilitation placement.
[2019-04-03] MEDS ORDERED: INSULIN ASPART SQ SCH (17:15)
[2019-04-03] MEDS: Gabapentin 400 MG CAPSULE PO SCH ×2 (18:23→21:29)
[2019-04-03] MEDS: amLODIPine 5 MG TABLET PO SCH (18:23)
[2019-04-03] MEDS: *HR* Glimepiride 4 MG TABLET PO SCH (18:23)
[2019-04-03] MEDS: ARIPiprazole 10 MG TABLET PO SCH (18:23)
[2019-04-03] MEDS: Cyanocobalamin (B-12) 1,000 MCG TABLET PO SCH (18:24)
[2019-04-03] MEDS: *HR* OxyCODONE Immed Rel 5 MG TABLET PO PRN ×2 (18:32→23:40)
[2019-04-03] MEDS ORDERED: ceFAZolin 2,000 MG in D5% in Water 100 ML IVPB SCH (21:00)
[2019-04-03] MEDS: Insulin DETEMIR 100 UNIT/ML X5UNITS SQ SCH (21:29)
[2019-04-03] MEDS: BUSPIRONE HCL 10 MG TABLET PO SCH (21:29)
[2019-04-03] MEDS: Liraglutide [Victoza 2-Pak] 1.2 MG SQ SCH (21:29)
[2019-04-03] MEDS ORDERED: tiZANidine 4 MG TABLET PO PRN (21:43)
[2019-04-04] MEDS ORDERED: ceFAZolin 2,000 MG in 0.9 % Sodium Chloride 100 ML IVPB SCH
[2019-04-04] MEDS: *HR* OxyCODONE Immed Rel 5 MG TABLET PO PRN ×3 (04:22→18:10)
[2019-04-04] MEDS: Liraglutide [Victoza 2-Pak] 1.2 MG SQ SCH (08:45)
[2019-04-04] MEDS: amLODIPine 5 MG TABLET PO SCH (08:47)
[2019-04-04] MEDS: *HR* Glimepiride 4 MG TABLET PO SCH (08:47)
[2019-04-04] MEDS: ARIPiprazole 10 MG TABLET PO SCH (08:47)
[2019-04-04] MEDS: Gabapentin 400 MG CAPSULE PO SCH ×2 (08:47→17:06)
[2019-04-04] MEDS: Cyanocobalamin (B-12) 1,000 MCG TABLET PO SCH (08:47)
[2019-04-04] MEDS: BUSPIRONE HCL 10 MG TABLET PO SCH (08:47)
[2019-04-04] MEDS: Insulin DETEMIR 100 UNIT/ML X5UNITS SQ SCH (08:48)
[2019-04-04] MEDS ORDERED: Renal Vitamin 1 CAP CAPSULE PO SCH (09:00)
[2019-04-04] MEDS ORDERED: *HR* Dextrose 50 % in Water (Syg) 50 ML SYRINGE IVP PRN (09:14)
[2019-04-04] MEDS ORDERED: D5% in Water 1,000 ML IVC PRN (09:14)
[2019-04-04] MEDS ORDERED: Dextrose Gel 15 GM/37.5 ML TUBE PO PRN ×2 (09:14)
[2019-04-04] MEDS: Insulin LISPRO 300 UNITS/3 ML VIAL SQ SCH ×3 (10:08→17:07)
--- NOTE | 2019-04-04 12:39 | Discharge Summary ---
Date of Encounter: 04/04/19 Time of Encounter: 10:40 Orders not resulted at time of discharge: Pending orders 04/03/19 XR ankle limited RT [XR] Routine XR foot 2V RT [XR] Routine - Discharge Diagnosis (1) Charcot foot due to diabetes mellitus Priority: Primary Status: Chronic Comments: Assessment: -Post op day #1 -Posterior splint dry and intact and no strike through noted -No swelling above or below splint -Patient able to moves toes -Cap refill less than 3 seconds Plan: -Do not change posterior splint, report any complications -Please have Social Service to coordinate ECF placement for rehab -Non weight bearing RLE -Follow up in Podiatry office next week with Dr. Mercer or Samantha Tay CNP, call to schedule appointment prior to discharge - Impressions ITS Impressions Fluoroscopy 04/03/19 00:00 IMPRESSION: Intraoperative images during hindfoot and midfoot fixation. Please refer to the operative record for full details. D/ / 04/03/2019 16:11:46 Josh Rivera MD / [email or web address] Interpreting Provider: Josh Rivera MD - Hospital Course Hospital course: Mr. Bowen is a 48 year old male alert and oriented sitting in bedside chair and no acute distress noted. Patient was admitted to the hospital yesterday after having right ankle arthrodesis, right subtalar joint arthrodesis, and right talectomy calcaneocuboid joint arthrodesis by Dr. Mercer. His stay has been uneventful. Patient denies any chest pain, shortness of breath, or calf pain. Patient denies any fever, chills, n/v/d. Posterior splint dry and intact and no strike through noted. Patient being discharge to ECF for rehab - Time Spent with Patient Total time spent providing and/or coordinating discharge services: Less than 30 minutes - Discharge Medications Prescriptions: No Action Insulin Glargine [Lantus] 45 unit SQ BID Buspirone HCl [Buspar] 30 mg PO BID Glimepiride [Amaryl] 4 mg PO QAM Cyanocobalamin (B-12) [Vitamin B12] 1,000 mcg PO DAILY tablet Allopurinol [Zyloprim 100 MG] 100 mg PO DAILY tablet Gabapentin [Neurontin] 400 mg PO TID 30 Days #90 capsule Ergocalciferol (VITAMIN D2) [Drisdol (50,000 Unit)] 50,000 unit PO TU amLODIPine [Norvasc] 10 mg PO DAILY tablet Lisinopril [Zestril] 5 mg PO DAILY #30 tablet B Complex W-C No.20/Folic Acid [Virt-Caps Softgel] 1 mg PO DAILY Insulin ASPART [NovoLOG] 7 - 10 units SQ TID MDD PER SLIDING SCALE Metoprolol Tartrate 50 mg PO DAILY Paroxetine HCl [Paxil Cr] 37.5 mg PO QAM Tizanidine HCl 4 mg PO HS PRN PRN Reason: Muscle Spasm ARIPiprazole [Abilify] 10 mg PO DAILY Liraglutide [Victoza 2-Sameer] 1.2 mg SQ DAILY Home Medications: Insulin Glargine [Lantus] 45 unit SQ BID 01/19/17 [History] Buspirone HCl [Buspar] 30 mg PO BID 07/27/17 [History] Glimepiride [Amaryl] 4 mg PO QAM 07/27/17 [History] Allopurinol [Zyloprim 100 MG] 100 mg PO DAILY tablet 11/07/17 [Rx] Cyanocobalamin (B-12) [Vitamin B12] 1,000 mcg PO DAILY tablet 11/07/17 [Rx] Gabapentin [Neurontin] 400 mg PO TID 30 Days #90 capsule 11/07/17 [Rx] Ergocalciferol (VITAMIN D2) [Drisdol (50,000 Unit)] 50,000 unit PO TU 04/08/18 [History] amLODIPine [Norvasc] 10 mg PO DAILY tablet 04/24/18 [Rx] Lisinopril [Zestril] 5 mg PO DAILY #30 tablet 04/26/18 [Rx] B Complex W-C No.20/Folic Acid [Virt-Caps Softgel] 1 mg PO DAILY 01/10/19 [History] Insulin ASPART [NovoLOG] 7 - 10 units SQ TID MDD PER SLIDING SCALE 01/10/19 [History] Metoprolol Tartrate 50 mg PO DAILY 01/10/19 [History] Paroxetine HCl [Paxil Cr] 37.5 mg PO QAM 01/10/19 [History] Tizanidine HCl 4 mg PO HS PRN 01/10/19 [History] ARIPiprazole [Abilify] 10 mg PO DAILY 04/03/19 [History] Liraglutide [Victoza 2-Sameer] 1.2 mg SQ DAILY 04/03/19 [History] Allergies/Adverse Reactions: Allergy/AdvReac Type Severity Reaction Status Date / Time No Known Allergies Allergy Verified 02/12/19 08:11 Date of admission: 04/03/19 18:47 Primary care physician: Dolly Garcia CNP Consults: 04/03/19 16:53 Consult to Physical Therapy [CONS] Routine Comment: Evaluate, develop and implement POC Reason for Consult: non-weight bearing right LE Does patient have active BEDREST order?: No Is patient medically & hemodynamically stable?: Yes 04/03/19 16:54 Consult to Occupational Therapy [CONS] Routine Comment: Evaluate, develop and implement POC Reason for Consult: non-weight bearing right LE Does patient have active BEDREST order?: No Is patient medically & hemodynamically stable?: Yes 04/03/19 17:15 Consult to Breakfast Server [CONS] Routine Reason for SW Consult: rehab placement 04/03/19 17:26 Consult to Nutrition [CONS] Routine Comment: Consulting Provider: NUTRITION Reason for Dietary Consult: MST Score - Patient Status Disposition: Transfer Inpatient Rehab Fac Condition: Good Overall status at discharge: patient is progressing back to baseline - Discharge Instructions Instructions: Diabetes Mellitus Type 2 in Adults (DC) Follow Up With: Dolly Garcia CNP [Primary Care Provider] - - Diet and Activity Diet: advance to your usual diet
--- NOTE | 2019-04-04 13:16 | Physician Discharge Referral ---
ExtendedCare Referral Info Transfer To: extended care facility Provider in Charge after Transfer: PCP Institutional Level of Care: Skilled Expected Duration of Placement: 10-12 weeks Prognosis: Fair Aware of Diagnosis: Patient, Family Aware of Prognosis: Patient, Family - Transfer Medications Home Medications: Insulin Glargine [Lantus] 45 unit SQ BID 01/19/17 [History] Buspirone HCl [Buspar] 30 mg PO BID 07/27/17 [History] Glimepiride [Amaryl] 4 mg PO QAM 07/27/17 [History] Allopurinol [Zyloprim 100 MG] 100 mg PO DAILY tablet 11/07/17 [Rx] Cyanocobalamin (B-12) [Vitamin B12] 1,000 mcg PO DAILY tablet 11/07/17 [Rx] Gabapentin [Neurontin] 400 mg PO TID 30 Days #90 capsule 11/07/17 [Rx] Ergocalciferol (VITAMIN D2) [Drisdol (50,000 Unit)] 50,000 unit PO TU 04/08/18 [History] amLODIPine [Norvasc] 10 mg PO DAILY tablet 04/24/18 [Rx] Lisinopril [Zestril] 5 mg PO DAILY #30 tablet 04/26/18 [Rx] B Complex W-C No.20/Folic Acid [Virt-Caps Softgel] 1 mg PO DAILY 01/10/19 [History] Insulin ASPART [NovoLOG] 7 - 10 units SQ TID MDD PER SLIDING SCALE 01/10/19 [History] Metoprolol Tartrate 50 mg PO DAILY 01/10/19 [History] Paroxetine HCl [Paxil Cr] 37.5 mg PO QAM 01/10/19 [History] Tizanidine HCl 4 mg PO HS PRN 01/10/19 [History] ARIPiprazole [Abilify] 10 mg PO DAILY 04/03/19 [History] Liraglutide [Victoza 2-Sameer] 1.2 mg SQ DAILY 04/03/19 [History] Allergies/Adverse Reactions: Allergy/AdvReac Type Severity Reaction Status Date / Time No Known Allergies Allergy Verified 02/12/19 08:11 - Respiratory Orders Smoking Cessation: Smoking cessation has been advised. For more information, call the [place] Tobacco Quit Line at 4-830-RXEV-NOW. - Mobility Orders Other (non-weight bearing right lower extremity) - Rehabiliation Orders Rehab Potential: Fair Rehab Orders: Evaluation for Physical Therapy Other: gait training non-wb right LE. - Diet Orders Renal CERTIFICATION: I certify that the transfer of the above named patient to an Extended Care Facility is necessary for the continuing treatment of the diagnosis listed. The above information is true and accurate reflection of patient's current condi tion. Confidential - Redisclosure prohibited without a patient's written consent.
[2019-04-04 17:06] VITALS: BP 100/62
[2019-04-04] MEDS ORDERED: Insulin LISPRO 300 UNITS/3 ML VIAL SQ SCH (21:00)
== END 2019-04-04 18:10 | DRG 951 ==
LOC: SAMDAY 10:18 → 3NENU 16:58
PROVIDERS: ADMIT Podiatrist; ATTEND Podiatrist

== ENCOUNTER 2019-09-16 09:56 | Inpatient (IN) ==
[2019-09-16 10:34] LABS: Basophils # 0.1 K/mcL (0.0-0.2); Basophils % 0.8 %; Eosinophils # 0.7 K/mcL (0.0-0.6); Eosinophils % 11.9 %; Hematocrit 39.3 % (37.5-50.1); Hemoglobin 12.5 g/dL (12.9-16.9); Immature Granulocytes % 0.3 % (0-4); Lymphocytes # 1.2 K/mcL (0.6-4.6); Lymphocytes % 20.3 %; Mean Corpuscular HGB Conc 31.8 g/dL (31.6-35.5); Mean Corpuscular Hemoglobin 28.6 pg (28.0-33.3); Mean Corpuscular Volume 89.9 fL (83.0-100.0); Mean Platelet Volume 9.1 fL (9.4-12.4); Monocytes # 0.5 K/mcL (0.0-1.3); Monocytes % 8.1 %; Neutrophils # 3.6 K/mcL (1.6-8.9); Platelet Count 247 K/mcL (140-400); Red Blood Count 4.37 M/mcL (4.19-5.50); Segmented Neutrophils % 58.6 %; White Blood Count 6.1 K/mcL (4.3-11.1)
[2019-09-16 10:46] LABS: Potassium 4.5 mEq/L (3.5-5.1)
[2019-09-16 11:57] LABS: INR 1.3; Prothrombin Time 14.6 Seconds (9.4-12.1)
[2019-09-16] MEDS ORDERED: Naloxone 0.4 MG/ML INJ IVP PRN (12:18)
[2019-09-16] MEDS ORDERED: Acetaminophen 325 MG TABLET PO PRN (12:18)
[2019-09-16] MEDS ORDERED: D5% in Water 1,000 ML IVC PRN (12:22)
[2019-09-16] MEDS ORDERED: *HR* Dextrose 50 % in Water (Syg) 50 ML SYRINGE IVP PRN (12:22)
[2019-09-16] MEDS ORDERED: Dextrose Gel 15 GM/37.5 ML TUBE PO PRN ×2 (12:22)
[2019-09-16] MEDS ORDERED: Ondansetron ODT 4 MG TAB.RAPDIS SL PRN (15:00)
[2019-09-16] MEDS ORDERED: *HR* OxyCODONE ER (12 HR) 10 MG TABLET PO PRN (15:00)
[2019-09-16] MEDS: *HR* HYDROcodone/Acet 5/325 mg TABLET PO PRN (15:26)
[2019-09-16] MEDS: Insulin LISPRO 300 UNITS/3 ML VIAL SQ SCH ×2 (16:34→21:21)
[2019-09-16 16:36] LABS: Estimated Average Glucose 114 mg/dl
[2019-09-16] MEDS ORDERED: Insulin LISPRO 300 UNITS/3 ML VIAL SQ SCH (18:00)
[2019-09-16] MEDS: tiZANidine 4 MG TABLET PO PRN (21:41)
[2019-09-16] MEDS: Gabapentin 400 MG CAPSULE PO SCH (22:07)
[2019-09-16] MEDS ORDERED: *HR* OxyCODONE Immed Rel 5 MG TABLET PO PRN (23:26)
[2019-09-17 05:06] LABS: Basophils % 0.8 %; Eosinophils # 0.6 K/mcL (0.0-0.6); Eosinophils % 12.2 %; Hematocrit 36.2 % (37.5-50.1); Hemoglobin 11.8 g/dL (12.9-16.9); Immature Granulocytes % 0.2 % (0-4); Mean Corpuscular HGB Conc 32.6 g/dL (31.6-35.5); Mean Corpuscular Hemoglobin 28.3 pg (28.0-33.3); Mean Corpuscular Volume 86.8 fL (83.0-100.0); Mean Platelet Volume 9.1 fL (9.4-12.4); Monocytes # 0.5 K/mcL (0.0-1.3); Monocytes % 9.5 %; Neutrophils # 2.7 K/mcL (1.6-8.9); Platelet Count 222 K/mcL (140-400); Red Blood Count 4.17 M/mcL (4.19-5.50); Red Cell Distribution Width 13.2 % (11.5-14.5); Segmented Neutrophils % 57.3 %; White Blood Count 4.8 K/mcL (4.3-11.1)
[2019-09-17 05:25] LABS: Calcium 8.7 mg/dL (8.6-10.3); Potassium 4.4 mEq/L (3.5-5.1)
[2019-09-17] MEDS: Insulin LISPRO 300 UNITS/3 ML VIAL SQ SCH ×4 (08:13→20:06)
[2019-09-17] MEDS: ARIPiprazole 10 MG TABLET PO SCH (08:33)
[2019-09-17] MEDS: Gabapentin 400 MG CAPSULE PO SCH ×3 (08:33→20:06)
[2019-09-17 11:26] LABS: Vancomycin,Trough 10 mcg/mL (5-10)
[2019-09-17] MEDS ORDERED: DAPTOMYCIN IVPB SCH (16:00)
[2019-09-17] MEDS ORDERED: SODIUM CHLORIDE 0.9% IVPB SCH (16:00)
[2019-09-17 16:32] LABS: Creatine Kinase 44 Units/L (30-223)
[2019-09-17] MEDS: Piperacillin/Tazobactam 3.375 GM in 0.9 % Sodium Chloride Mini Bag 100 ML IVPB SCH (17:00)
[2019-09-17] MEDS: *HR* Rivaroxaban 10 MG TABLET PO SCH (17:01)
[2019-09-17] MEDS: *HR* HYDROcodone/Acet 5/325 mg TABLET PO PRN (20:14)
[2019-09-18] MEDS: Piperacillin/Tazobactam 3.375 GM in 0.9 % Sodium Chloride Mini Bag 100 ML IVPB SCH ×3 (00:39→15:58)
[2019-09-18 08:14] LABS: Hematocrit 37.7 % (37.5-50.1); Hemoglobin 12.4 g/dL (12.9-16.9); Mean Corpuscular HGB Conc 32.9 g/dL (31.6-35.5); Mean Corpuscular Hemoglobin 28.4 pg (28.0-33.3); Mean Corpuscular Volume 86.5 fL (83.0-100.0); Mean Platelet Volume 8.9 fL (9.4-12.4); Platelet Count 217 K/mcL (140-400); Red Blood Count 4.36 M/mcL (4.19-5.50); White Blood Count 5.2 K/mcL (4.3-11.1)
[2019-09-18 08:28] LABS: Calcium 8.7 mg/dL (8.6-10.3); Potassium 4.7 mEq/L (3.5-5.1)
[2019-09-18] MEDS: Gabapentin 400 MG CAPSULE PO SCH ×3 (08:49→20:35)
[2019-09-18] MEDS: *HR* HYDROcodone/Acet 5/325 mg TABLET PO PRN ×2 (08:49→22:12)
[2019-09-18] MEDS: ARIPiprazole 10 MG TABLET PO SCH (08:49)
[2019-09-18] MEDS: Insulin LISPRO 300 UNITS/3 ML VIAL SQ SCH ×4 (08:50→20:35)
[2019-09-18] MEDS: *HR* Rivaroxaban 10 MG TABLET PO SCH (16:00)
[2019-09-18] MEDS: DAPTOmycin 1,000 MG in 0.9 % Sodium Chloride 100 ML IVPB SCH (17:30)
[2019-09-19] MEDS: Piperacillin/Tazobactam 3.375 GM in 0.9 % Sodium Chloride Mini Bag 100 ML IVPB SCH ×3 (00:08→16:18)
[2019-09-19 06:26] LABS: Hematocrit 35.4 % (37.5-50.1); Hemoglobin 11.7 g/dL (12.9-16.9); Mean Corpuscular HGB Conc 33.1 g/dL (31.6-35.5); Mean Corpuscular Hemoglobin 28.5 pg (28.0-33.3); Mean Corpuscular Volume 86.3 fL (83.0-100.0); Mean Platelet Volume 9.2 fL (9.4-12.4); Platelet Count 221 K/mcL (140-400); Red Cell Distribution Width 13.1 % (11.5-14.5); White Blood Count 4.7 K/mcL (4.3-11.1)
[2019-09-19 06:46] LABS: Calcium 8.7 mg/dL (8.6-10.3); Potassium 4.5 mEq/L (3.5-5.1)
[2019-09-19] MEDS: Insulin LISPRO 300 UNITS/3 ML VIAL SQ SCH ×4 (08:38→20:24)
[2019-09-19] MEDS: ARIPiprazole 10 MG TABLET PO SCH (08:39)
[2019-09-19] MEDS: Gabapentin 400 MG CAPSULE PO SCH ×3 (08:39→20:20)
[2019-09-19] MEDS ORDERED: Heparin 1,000 UNITS/500 mL 500 ML ONE (14:50)
[2019-09-19] MEDS ORDERED: *HR* Heparin 5,000 UNIT/ML VIAL SQ SCH (18:00)
[2019-09-19] MEDS: DAPTOmycin 1,000 MG in 0.9 % Sodium Chloride 100 ML IVPB SCH (18:38)
[2019-09-19] MEDS ORDERED: Aminoglycoside Consult 1 EACH MC ONE (18:41)
[2019-09-19] MEDS: *HR* Rivaroxaban 10 MG TABLET PO SCH (20:21)
[2019-09-20] MEDS: Piperacillin/Tazobactam 3.375 GM in 0.9 % Sodium Chloride Mini Bag 100 ML IVPB SCH ×4 (00:24→23:35)
[2019-09-20] MEDS: ARIPiprazole 10 MG TABLET PO SCH (07:36)
[2019-09-20] MEDS: Gabapentin 400 MG CAPSULE PO SCH ×3 (07:36→21:04)
[2019-09-20] MEDS: Insulin LISPRO 300 UNITS/3 ML VIAL SQ SCH ×4 (07:38→21:04)
[2019-09-20 07:51] LABS: Hematocrit 34.1 % (37.5-50.1); Hemoglobin 11.5 g/dL (12.9-16.9); Mean Corpuscular HGB Conc 33.7 g/dL (31.6-35.5); Mean Corpuscular Hemoglobin 29.1 pg (28.0-33.3); Mean Corpuscular Volume 86.3 fL (83.0-100.0); Mean Platelet Volume 9.1 fL (9.4-12.4); Platelet Count 219 K/mcL (140-400); Red Blood Count 3.95 M/mcL (4.19-5.50); Red Cell Distribution Width 12.9 % (11.5-14.5); White Blood Count 5.8 K/mcL (4.3-11.1)
[2019-09-20 08:12] LABS: Calcium 8.7 mg/dL (8.6-10.3); Potassium 4.2 mEq/L (3.5-5.1)
[2019-09-20] MEDS: *HR* Rivaroxaban 10 MG TABLET PO SCH (17:48)
[2019-09-20] MEDS: DAPTOmycin 1,000 MG in 0.9 % Sodium Chloride 100 ML IVPB SCH (17:48)
[2019-09-20] MEDS: Insulin DETEMIR 100 UNIT/ML X5UNITS SQ SCH (21:04)
[2019-09-20] MEDS: tiZANidine 4 MG TABLET PO PRN (22:34)
[2019-09-21 03:38] LABS: Calcium 8.7 mg/dL (8.6-10.3); Potassium 4.3 mEq/L (3.5-5.1)
[2019-09-21] MEDS: Insulin LISPRO 300 UNITS/3 ML VIAL SQ SCH ×4 (07:49→20:38)
[2019-09-21] MEDS: Piperacillin/Tazobactam 3.375 GM in 0.9 % Sodium Chloride Mini Bag 100 ML IVPB SCH ×3 (07:50→23:13)
[2019-09-21] MEDS: Insulin DETEMIR 100 UNIT/ML X5UNITS SQ SCH ×2 (07:51→20:43)
[2019-09-21] MEDS: ARIPiprazole 10 MG TABLET PO SCH (07:52)
[2019-09-21] MEDS: Gabapentin 400 MG CAPSULE PO SCH ×3 (07:52→20:44)
[2019-09-21] MEDS: DAPTOmycin 1,000 MG in 0.9 % Sodium Chloride 100 ML IVPB SCH (17:04)
[2019-09-21] MEDS: *HR* Rivaroxaban 10 MG TABLET PO SCH (17:04)
[2019-09-21] MEDS: tiZANidine 4 MG TABLET PO PRN (20:44)
[2019-09-22 03:46] LABS: Calcium 8.5 mg/dL (8.6-10.3); Potassium 4.2 mEq/L (3.5-5.1)
[2019-09-22] MEDS: Insulin LISPRO 300 UNITS/3 ML VIAL SQ SCH ×3 (08:18→17:17)
[2019-09-22] MEDS: Piperacillin/Tazobactam 3.375 GM in 0.9 % Sodium Chloride Mini Bag 100 ML IVPB SCH ×2 (08:19→15:27)
[2019-09-22] MEDS: Insulin DETEMIR 100 UNIT/ML X5UNITS SQ SCH (08:21)
[2019-09-22] MEDS: Gabapentin 400 MG CAPSULE PO SCH ×2 (08:21→15:27)
[2019-09-22] MEDS: ARIPiprazole 10 MG TABLET PO SCH (08:21)
[2019-09-22] MEDS ORDERED: amLODIPine 5 MG TABLET PO SCH (09:00)
[2019-09-22 16:11] VITALS: BP 154/92
[2019-09-22] MEDS: DAPTOmycin 1,000 MG in 0.9 % Sodium Chloride 100 ML IVPB SCH (17:18)
[2019-09-22] MEDS: *HR* Rivaroxaban 10 MG TABLET PO SCH (17:18)
[2019-09-22] MEDS ORDERED: Insulin DETEMIR 100 UNIT/ML X5UNITS SQ SCH (21:00)
[2019-09-23] MEDS ORDERED: Insulin DETEMIR 100 UNIT/ML X5UNITS SQ SCH (09:00)
== END 2019-09-22 18:42 | DRG 638 ==
LOC: 3ANU 09:56 → EMEROOARM 09:56 → SUATTDRO 13:20 → 3ANU 14:53 → SUATTDRO 09-19 16:32
PROVIDERS: ADMIT Internal Medicine; ATTEND Internal Medicine

== ENCOUNTER 2020-01-14 12:38 | Observation (INO) ==
[~2020-01-14 12:38] MED LIST: Vancomycin 1,000 MG, 0.9 % Sodium Chloride 1,000 ML IR ONE
[2020-01-14] MEDS ORDERED: CeFAZolin Syr 3,000MG/30 ML 3,000 MG/30 ML SYRINGE IVPB ONE (13:09)
[2020-01-14] MEDS ORDERED: Albuterol 2.5 MG/3 ML NEBULIZER IH PRN ×2 (13:09→16:31)
[2020-01-14] MEDS ORDERED: Ringers Solution, Lactated 1,000 ML IVC SCH ×2 (13:15→16:31)
[2020-01-14] MEDS ORDERED: Bupivacaine/EPI 1:200k 0.25%PF 10 ML VIAL INFILT ONE (13:16)
[2020-01-14] MEDS ORDERED: Vancomycin 1,000 MG VIAL ONE (13:17)
[2020-01-14] MEDS ORDERED: Balanced Salt Irrig Soln. IR ONE (13:47)
[2020-01-14] MEDS ORDERED: *HR* HYDROmorphone PF 0.5 MG/0.5 ML SYRINGE IVP PRN ×2 (13:49→16:31)
[2020-01-14] MEDS ORDERED: *HR* OxyCODONE Immed Rel 5 MG TABLET PO PRN ×2 (13:49→16:31)
[2020-01-14] MEDS ORDERED: Acetaminophen IV 1,000 MG/100 ML INFUS..BTL IVPB ONE ×2 (13:49→16:31)
[2020-01-14] MEDS ORDERED: *HR* Promethazine 25 MG/ML VIAL IVP PRN ×2 (13:49→16:31)
[2020-01-14] MEDS ORDERED: Ondansetron 4 MG/2 ML VIAL IVP ONE ×2 (13:49→16:31)
[2020-01-14] MEDS ORDERED: *HR* Labetalol 20 MG/4 ML SYRINGE IVP PRN ×2 (13:49→16:31)
[2020-01-14] MEDS ORDERED: 0.9 % Sodium Chloride 1,000 ML IVC SCH ×2 (14:00→16:31)
[2020-01-14] MEDS ORDERED: tiZANidine 4 MG TABLET PO PRN ×2 (14:03→16:31)
[2020-01-14] MEDS ORDERED: Ondansetron 4 MG/2 ML VIAL IVP PRN ×2 (14:05→16:31)
[2020-01-14] MEDS ORDERED: Fluticasone Propionate Nasal 50 MCG/SPRAY BOTTLE NS PRN ×2 (14:11→16:31)
[2020-01-14] MEDS ORDERED: MOM Conc 10 ML UD.LIQ PO PRN ×2 (14:13→16:31)
[2020-01-14] MEDS ORDERED: Dexamethasone 4 MG/ML VIAL ONE (14:30)
[2020-01-14] MEDS ORDERED: *HR* FentaNYL (PF) 100 MCG/2 ML VIAL ONE ×2 (14:30→14:50)
[2020-01-14] MEDS ORDERED: Lidocaine -MPF 2% 2 ML VIAL ONE (14:30)
[2020-01-14] MEDS ORDERED: *HR* Propofol 200 MG/20 ML VIAL IVP ONE (14:30)
[2020-01-14] MEDS ORDERED: Gabapentin 400 MG CAPSULE PO SCH (15:00)
[2020-01-14] MEDS ORDERED: *HR* PHENYLEPHRINE 1,000 MCG/10 ML SYRINGE IVP ONE (15:15)
[2020-01-14] MEDS ORDERED: ceFAZolin 3,000 MG in D5% in Water 100 ML IVPB SCH (16:00)
[2020-01-14] MEDS ORDERED: Vancomycin 1,000 MG, 0.9 % Sodium Chloride 1,000 ML IR ONE (16:31)
[2020-01-14] MEDS: *HR* Heparin 5,000 UNIT/ML VIAL SQ SCH (17:30)
[2020-01-14] MEDS ORDERED: *HR* Heparin 5,000 UNIT/ML VIAL SQ SCH (18:00)
[2020-01-14] MEDS ORDERED: D5% in Water 1,000 ML IVC PRN (19:04)
[2020-01-14] MEDS ORDERED: *HR* Dextrose 50 % in Water (Syg) 50 ML SYRINGE IVP PRN (19:04)
[2020-01-14] MEDS ORDERED: Dextrose Gel 15 GM/37.5 ML TUBE PO PRN ×2 (19:04)
[2020-01-14] MEDS: Gabapentin 400 MG CAPSULE PO SCH (20:20)
[2020-01-15] MEDS ORDERED: ceFAZolin 3,000 MG in D5% in Water 100 ML IVPB SCH
[2020-01-15] MEDS: *HR* Heparin 5,000 UNIT/ML VIAL SQ SCH ×2 (05:40→18:21)
[2020-01-15] MEDS ORDERED: ceFAZolin 3,000 MG in 0.9 % Sodium Chloride 100 ML IVPB SCH (08:00)
[2020-01-15] MEDS: ARIPiprazole 10 MG TABLET PO SCH (08:39)
[2020-01-15] MEDS: PARoxetine 30 MG TABLET PO SCH (08:40)
[2020-01-15] MEDS: Cyanocobalamin (B-12) 1,000 MCG TABLET PO SCH (08:40)
[2020-01-15] MEDS: Gabapentin 400 MG CAPSULE PO SCH ×3 (08:41→20:04)
[2020-01-15] MEDS: Insulin LISPRO 300 UNITS/3 ML VIAL SQ SCH ×3 (08:41→16:30)
[2020-01-15] MEDS: *HR* Glimepiride 4 MG TABLET PO SCH (08:41)
[2020-01-15] MEDS: allopurinoL 100 MG TABLET PO SCH (08:41)
[2020-01-15] MEDS ORDERED: ARIPiprazole 10 MG TABLET PO SCH (09:00)
[2020-01-15] MEDS ORDERED: Cyanocobalamin (B-12) 1,000 MCG TABLET PO SCH (09:00)
[2020-01-15] MEDS ORDERED: allopurinoL 100 MG TABLET PO SCH (09:00)
[2020-01-15] MEDS ORDERED: *HR* Glimepiride 4 MG TABLET PO SCH (09:00)
[2020-01-15] MEDS ORDERED: PARoxetine 30 MG TABLET PO SCH (09:00)
[2020-01-15] MEDS ORDERED: ceFAZolin 2,000 MG in 0.9 % Sodium Chloride 100 ML IVPB SCH ×2 (16:00→17:15)
[2020-01-15] MEDS: ceFAZolin 2,000 MG in 0.9 % Sodium Chloride 100 ML IVPB SCH (18:20)
[2020-01-15] MEDS ORDERED: Insulin LISPRO 300 UNITS/3 ML VIAL SQ SCH (21:00)
[2020-01-15] MEDS: Insulin DETEMIR 100 UNIT/ML X5UNITS SQ SCH (21:55)
[2020-01-16] MEDS: ceFAZolin 2,000 MG in 0.9 % Sodium Chloride 100 ML IVPB SCH ×2 (02:13→09:43)
[2020-01-16 02:51] LABS: Calcium 8.3 mg/dL (8.6-10.3)
[2020-01-16] MEDS: *HR* Heparin 5,000 UNIT/ML VIAL SQ SCH (05:52)
[2020-01-16] MEDS: Gabapentin 400 MG CAPSULE PO SCH (07:52)
[2020-01-16] MEDS: Insulin LISPRO 300 UNITS/3 ML VIAL SQ SCH ×2 (07:52→11:35)
[2020-01-16] MEDS: Cyanocobalamin (B-12) 1,000 MCG TABLET PO SCH (07:53)
[2020-01-16] MEDS: allopurinoL 100 MG TABLET PO SCH (07:53)
[2020-01-16] MEDS: PARoxetine 30 MG TABLET PO SCH (07:53)
[2020-01-16] MEDS: *HR* Glimepiride 4 MG TABLET PO SCH (07:53)
[2020-01-16] MEDS: ARIPiprazole 10 MG TABLET PO SCH (07:53)
[2020-01-16] MEDS: Insulin DETEMIR 100 UNIT/ML X5UNITS SQ SCH (09:44)
[2020-01-16 12:02] VITALS: BP 128/84
== END 2020-01-16 13:40 ==
LOC: SAMDAY 12:38 → 3NENU 12:38 → INTOOBSV 01-15 13:29
PROVIDERS: ADMIT Podiatrist; ATTEND Podiatrist

== ENCOUNTER 2021-01-04 23:19 | Inpatient (IN) ==
[~2021-01-04 23:19] MED LIST changes: -Vancomycin 1,000 MG, 0.9 % Sodium Chloride 1,000 ML IR ONE; +Vancomycin 2,000 MG/520 ML IV.SOLN IVPB ONE
[2021-01-04] MEDS ORDERED: Isovue-370 500 ML BOTTLE IVP ONE (23:32)
[2021-01-04] MEDS ORDERED: Piperacillin/Tazobactam 3.375 GM in 0.9 % Sodium Chloride Mini Bag 100 ML IVPB ONE (23:32)
[2021-01-05 00:14] LABS: Basophils % 0.2 %; Eosinophils # 0.3 K/mcL (0.0-0.6); Eosinophils % 2.3 %; Hemoglobin 11.8 g/dL (12.9-16.9); Immature Granulocytes % 1.8 % (0-4); Lymphocytes # 0.8 K/mcL (0.6-4.6); Lymphocytes % 6.7 %; Mean Corpuscular HGB Conc 31.9 g/dL (31.6-35.5); Mean Corpuscular Hemoglobin 28.6 pg (28.0-33.3); Mean Corpuscular Volume 89.6 fL (83.0-100.0); Mean Platelet Volume 9.7 fL (9.4-12.4); Monocytes # 0.7 K/mcL (0.0-1.3); Monocytes % 5.4 %; Neutrophils # 10.2 K/mcL (1.6-8.9); Platelet Count 357 K/mcL (140-400); Red Blood Count 4.13 M/mcL (4.19-5.50); Red Cell Distribution Width 12.2 % (11.5-14.5); Segmented Neutrophils % 83.6 %; White Blood Count 12.2 K/mcL (4.3-11.1)
[2021-01-05 00:22] LABS: Calcium 8.6 mg/dL (8.6-10.3); Potassium 4.8 mEq/L (3.5-5.1)
[2021-01-05] MEDS ORDERED: Insulin Regular, Human 100 UNIT/ML SUBQ ONE (00:46)
[2021-01-05] MEDS ORDERED: 0.9 % Sodium Chloride 1,000 ML IVC ONE (00:46)
[2021-01-05] MEDS ORDERED: Morphine Sulfate 2 MG/ML SYRINGE IVP ONE (00:47)
[2021-01-05] MEDS ORDERED: Acetaminophen 325 MG TABLET PO PRN (01:52)
[2021-01-05] MEDS ORDERED: Naloxone 0.4 MG/ML INJ IVP PRN ×2 (01:52→07:24)
[2021-01-05] MEDS ORDERED: Ondansetron 4 MG/2 ML VIAL IVP PRN ×2 (01:52→07:24)
[2021-01-05] MEDS ORDERED: *HR* Promethazine 25 MG/ML VIAL IM PRN ×2 (01:52→07:24)
[2021-01-05] MEDS ORDERED: 0.9 % Sodium Chloride 1,000 ML IVC SCH (02:00)
[2021-01-05] MEDS ORDERED: *HR* Dextrose 50 % in Water (Vial) 50 ML VIAL IVP PRN ×2 (02:57→07:24)
[2021-01-05] MEDS ORDERED: Dextrose Gel 15 GM/37.5 ML TUBE PO PRN ×4 (02:57→07:24)
[2021-01-05] MEDS ORDERED: D5% in Water 1,000 ML IVC PRN ×2 (02:57→07:24)
[2021-01-05] MEDS ORDERED: Vancomycin 1,000 MG VIAL ONE ×2 (03:02→03:23)
[2021-01-05] MEDS ORDERED: *HR* Midazolam HCl 2 MG/2 ML VIAL ONE (03:33)
[2021-01-05] MEDS ORDERED: *HR* FentaNYL (PF) 100 MCG/2 ML VIAL ONE (03:33)
[2021-01-05] MEDS ORDERED: Cefepime HCl 2,000 MG in Water for inj. (sterile) 20 ML IVP SCH ×2 (06:00→08:00)
[2021-01-05] MEDS ORDERED: Insulin LISPRO 300 UNITS/3 ML VIAL SUBQ SCH ×2 (06:00→12:00)
[2021-01-05] MEDS ORDERED: MetroNIDAZOLE 500 MG/100 ML 500 MG/100 ML BAG IVPB SCH ×2 (06:00→12:00)
[2021-01-05 07:04] LABS: INR 1.4; Prothrombin Time 15.8 Seconds (9.4-12.1)
[2021-01-05 07:15] LABS: Albumin 2.9 g/dL (3.5-5.7); Albumin/Globulin Ratio 0.6 (1.1-2.2); Bilirubin,Total 0.4 mg/dL (0.3-1.0); Calcium 8.7 mg/dL (8.6-10.3); Globulin 4.8 g/dL (2.4-3.5); Magnesium 1.5 mg/dL (1.6-2.6); Potassium 4.7 mEq/L (3.5-5.1); Total Protein 7.7 g/dL (6.4-8.9)
[2021-01-05] MEDS ORDERED: Ringers Solution, Lactated 500 ML IVC ONE (07:15)
[2021-01-05] MEDS ORDERED: Isovue-370 500 ML BOTTLE IVP ONE (07:24)
[2021-01-05] MEDS: 0.9 % Sodium Chloride 1,000 ML IVC SCH ×2 (10:28→19:18)
[2021-01-05] MEDS: Insulin DETEMIR 100 UNIT/ML X5UNITS SUBQ SCH ×2 (10:53→21:41)
[2021-01-05] MEDS: Ipratropium/Albuterol Neb 3 ML IH PRN (11:11)
[2021-01-05] MEDS: DAPTOmycin 700 MG in 0.9 % Sodium Chloride 100 ML IVPB SCH (13:10)
[2021-01-05] MEDS ORDERED: Bisacodyl 10 MG RECTAL SUPPOSITORY RC PRN (16:39)
[2021-01-05] MEDS: Cefepime HCl 2,000 MG in Water for inj. (sterile) 20 ML IVP SCH (17:13)
[2021-01-05] MEDS: Insulin LISPRO 300 UNITS/3 ML VIAL SUBQ SCH ×2 (17:20→21:41)
[2021-01-05] MEDS ORDERED: Insulin DETEMIR 100 UNIT/ML X5UNITS SUBQ SCH ×2 (21:00)
[2021-01-05] MEDS: metroNIDAZOLE 500 MG TABLET PO SCH (21:40)
[2021-01-05] MEDS: Gabapentin 400 MG CAPSULE PO SCH (21:40)
[2021-01-06] MEDS: Cefepime HCl 2,000 MG in Water for inj. (sterile) 20 ML IVP SCH (05:21)
[2021-01-06 06:11] LABS: Basophils # 0.1 K/mcL (0.0-0.2); Basophils % 0.6 %; Eosinophils # 0.4 K/mcL (0.0-0.6); Eosinophils % 5.1 %; Hematocrit 33.4 % (37.5-50.1); Hemoglobin 10.3 g/dL (12.9-16.9); Immature Granulocytes % 1.1 % (0-4); Lymphocytes # 0.7 K/mcL (0.6-4.6); Lymphocytes % 8.1 %; Mean Corpuscular HGB Conc 30.8 g/dL (31.6-35.5); Mean Corpuscular Hemoglobin 27.9 pg (28.0-33.3); Mean Corpuscular Volume 90.5 fL (83.0-100.0); Mean Platelet Volume 9.6 fL (9.4-12.4); Monocytes # 0.5 K/mcL (0.0-1.3); Monocytes % 6.1 %; Neutrophils # 6.8 K/mcL (1.6-8.9); Platelet Count 336 K/mcL (140-400); Red Blood Count 3.69 M/mcL (4.19-5.50); Red Cell Distribution Width 12.8 % (11.5-14.5); White Blood Count 8.6 K/mcL (4.3-11.1)
[2021-01-06 06:36] LABS: Calcium 8.2 mg/dL (8.6-10.3); Potassium 4.3 mEq/L (3.5-5.1)
[2021-01-06] MEDS: Insulin LISPRO 300 UNITS/3 ML VIAL SUBQ SCH ×4 (08:55→22:17)
[2021-01-06] MEDS: metroNIDAZOLE 500 MG TABLET PO SCH ×3 (09:39→22:17)
[2021-01-06] MEDS: Cyanocobalamin (B-12) 1,000 MCG TABLET PO SCH (09:39)
[2021-01-06] MEDS: Gabapentin 400 MG CAPSULE PO SCH ×3 (09:39→22:17)
[2021-01-06] MEDS: ARIPiprazole 10 MG TABLET PO SCH (09:39)
[2021-01-06] MEDS: PARoxetine 20 MG TABLET PO SCH (09:40)
[2021-01-06] MEDS: Fluticasone Propionate Nasal 50 MCG/SPRAY BOTTLE NS SCH (10:26)
[2021-01-06] MEDS: Insulin DETEMIR 100 UNIT/ML X5UNITS SUBQ SCH ×2 (10:26→22:17)
[2021-01-06] MEDS: 0.9 % Sodium Chloride 1,000 ML IVC SCH ×2 (10:40→23:33)
[2021-01-06 11:47] LABS: Uric Acid 10.5 mg/dL (2.3-7.6)
[2021-01-06] MEDS: allopurinoL 100 MG TABLET PO SCH (12:41)
[2021-01-06] MEDS: Calcium Acetate 667 MG CAPSULE PO SCH ×2 (12:41→17:47)
[2021-01-06] MEDS: DAPTOmycin 700 MG in 0.9 % Sodium Chloride 100 ML IVPB SCH (12:44)
[2021-01-06 13:06] LABS: Vitamin D 25 Hydroxy 18 ng/mL (30-80)
[2021-01-06 13:13] LABS: Hepatitis B Surface Antigen Nonreactive (Nonreactive)
[2021-01-06] MEDS ORDERED: Nystatin Cream 15 GM TUBE TP PRN (13:13)
[2021-01-06 13:41] LABS: Hepatitis B Core IgM Nonreactive (Nonreactive)
[2021-01-06 13:42] LABS: Hepatitis C Virus Antibody Nonreactive (Nonreactive)
[2021-01-06 13:43] LABS: Hepatitis A Antibody IgM Nonreactive (Nonreactive)
[2021-01-06] MEDS: Cefepime HCl 1,000 MG in Water for inj. (sterile) 10 ML IVP SCH (17:47)
[2021-01-06 18:37] LABS: Amorphous Sediment,Urine Few per hpf (None-Few); Bacteria,Urine Few per hpf (None-Few); Bilirubin,Urine Small (Negative); Blood,Urine Negative (Negative); Clarity,Urine Turbid (Clear); Color,Urine Dark-Yellow (Yellow); Glucose,Urine (UA) 30 mg/dL (Normal); Ketones,Urine 10 mg/dL (Negative); Leukocyte Esterase,Urine Negative (Negative); Mucus,Urine Few per lpf (None-Few); Nitrite,Urine Negative (Negative); PH,Urine 5.5 pH Units (5.0-8.0); Protein,Urine 100 mg/dL (Neg-Trace); RBC,Urine 0-3 per hpf (0-3); Specific Gravity,Urine 1.029 (1.010-1.025); Squamous Epithelial Cell,Urine Few per hpf (None-Few)
[2021-01-06 18:56] LABS: Protein/Creatinine Ratio,Urine 0.36 mg/mg (0.00-0.20); Sodium, Urine 33.9 mEq/L
[2021-01-07 03:15] LABS: Calcium 7.8 mg/dL (8.6-10.3); Potassium 4.3 mEq/L (3.5-5.1)
[2021-01-07 03:23] LABS: Basophils # 0.1 K/mcL (0.0-0.2); Basophils % 0.6 %; Eosinophils # 0.5 K/mcL (0.0-0.6); Eosinophils % 6.1 %; Hematocrit 31.4 % (37.5-50.1); Hemoglobin 9.9 g/dL (12.9-16.9); Immature Granulocytes % 1.5 % (0-4); Lymphocytes # 0.9 K/mcL (0.6-4.6); Lymphocytes % 11.4 %; Mean Corpuscular HGB Conc 31.5 g/dL (31.6-35.5); Mean Corpuscular Hemoglobin 27.9 pg (28.0-33.3); Mean Corpuscular Volume 88.5 fL (83.0-100.0); Mean Platelet Volume 9.8 fL (9.4-12.4); Monocytes # 0.5 K/mcL (0.0-1.3); Monocytes % 6.6 %; Platelet Count 358 K/mcL (140-400); Red Blood Count 3.55 M/mcL (4.19-5.50); Red Cell Distribution Width 12.8 % (11.5-14.5); Segmented Neutrophils % 73.8 %; White Blood Count 8.2 K/mcL (4.3-11.1)
[2021-01-07] MEDS: Cefepime HCl 1,000 MG in Water for inj. (sterile) 10 ML IVP SCH (06:43)
[2021-01-07] MEDS: Insulin LISPRO 300 UNITS/3 ML VIAL SUBQ SCH ×4 (07:57→21:11)
[2021-01-07] MEDS: Calcium Acetate 667 MG CAPSULE PO SCH ×3 (07:57→17:22)
[2021-01-07] MEDS: PARoxetine 20 MG TABLET PO SCH (07:58)
[2021-01-07] MEDS: Cyanocobalamin (B-12) 1,000 MCG TABLET PO SCH (07:58)
[2021-01-07] MEDS: allopurinoL 100 MG TABLET PO SCH (07:58)
[2021-01-07] MEDS: metroNIDAZOLE 500 MG TABLET PO SCH ×3 (07:58→21:12)
[2021-01-07] MEDS: ARIPiprazole 10 MG TABLET PO SCH (07:58)
[2021-01-07] MEDS: Gabapentin 400 MG CAPSULE PO SCH ×3 (07:58→21:12)
[2021-01-07] MEDS: Fluticasone Propionate Nasal 50 MCG/SPRAY BOTTLE NS SCH (07:59)
[2021-01-07] MEDS: Insulin DETEMIR 100 UNIT/ML X5UNITS SUBQ SCH ×2 (08:15→21:12)
[2021-01-07] MEDS ORDERED: 0.9 % Sodium Chloride 250 ML IVC PRN (08:37)
[2021-01-07] MEDS ORDERED: 0.9 % Sodium Chloride 1,000 ML PRIME SCH (08:45)
[2021-01-07] MEDS ORDERED: *HR* Heparin 5,000 UNIT/ML VIAL ONE (08:58)
[2021-01-07] MEDS ORDERED: Heparin 1,000 UNITS/500 mL 500 ML ONE (09:00)
[2021-01-07 11:16] LABS: Hepatitis B Surface Antibody 5.83 mIU/mL
[2021-01-07 11:26] LABS: Hepatitis B Surface Antigen Nonreactive (Nonreactive)
[2021-01-07] MEDS: ceFAZolin 1,000 MG in Water for inj. (sterile) 10 ML IVP SCH (17:23)
[2021-01-08 01:18] LABS: Basophils % 0.6 %; Eosinophils # 0.4 K/mcL (0.0-0.6); Eosinophils % 6.1 %; Hematocrit 31.2 % (37.5-50.1); Hemoglobin 9.9 g/dL (12.9-16.9); Lymphocytes # 0.9 K/mcL (0.6-4.6); Lymphocytes % 13.4 %; Mean Corpuscular HGB Conc 31.7 g/dL (31.6-35.5); Mean Corpuscular Hemoglobin 27.9 pg (28.0-33.3); Mean Corpuscular Volume 87.9 fL (83.0-100.0); Mean Platelet Volume 9.6 fL (9.4-12.4); Monocytes # 0.5 K/mcL (0.0-1.3); Monocytes % 7.6 %; Neutrophils # 4.9 K/mcL (1.6-8.9); Platelet Count 331 K/mcL (140-400); Red Blood Count 3.55 M/mcL (4.19-5.50); Red Cell Distribution Width 12.5 % (11.5-14.5); Segmented Neutrophils % 70.3 %
[2021-01-08 01:38] LABS: Calcium 7.7 mg/dL (8.6-10.3); Potassium 4.3 mEq/L (3.5-5.1)
[2021-01-08] MEDS ORDERED: 0.9 % Sodium Chloride 250 ML IVC PRN (07:13)
[2021-01-08] MEDS: Insulin LISPRO 300 UNITS/3 ML VIAL SUBQ SCH ×4 (07:55→20:46)
[2021-01-08] MEDS: Calcium Acetate 667 MG CAPSULE PO SCH ×3 (08:30→17:03)
[2021-01-08] MEDS ORDERED: *HR* Heparin 10,000 UNIT/10 ML VIAL ONE (10:48)
[2021-01-08] MEDS: ARIPiprazole 10 MG TABLET PO SCH (11:28)
[2021-01-08] MEDS: metroNIDAZOLE 500 MG TABLET PO SCH ×3 (11:29→20:45)
[2021-01-08] MEDS: PARoxetine 20 MG TABLET PO SCH (11:29)
[2021-01-08] MEDS: Gabapentin 400 MG CAPSULE PO SCH ×3 (11:29→17:03)
[2021-01-08] MEDS: allopurinoL 100 MG TABLET PO SCH (11:29)
[2021-01-08] MEDS: Cyanocobalamin (B-12) 1,000 MCG TABLET PO SCH (11:29)
[2021-01-08] MEDS: Insulin DETEMIR 100 UNIT/ML X5UNITS SUBQ SCH ×2 (11:30→22:04)
[2021-01-08] MEDS: Fluticasone Propionate Nasal 50 MCG/SPRAY BOTTLE NS SCH (11:35)
[2021-01-08] MEDS ORDERED: DAPTOmycin 700 MG in 0.9 % Sodium Chloride 100 ML IVPB SCH (13:00)
[2021-01-08] MEDS: ceFAZolin 1,000 MG in Water for inj. (sterile) 10 ML IVP SCH (18:10)
[2021-01-09 05:13] LABS: Basophils # 0.1 K/mcL (0.0-0.2); Basophils % 0.6 %; Eosinophils # 0.4 K/mcL (0.0-0.6); Eosinophils % 5.1 %; Hematocrit 30.9 % (37.5-50.1); Hemoglobin 9.9 g/dL (12.9-16.9); Lymphocytes % 12.6 %; Mean Corpuscular Hemoglobin 28.4 pg (28.0-33.3); Mean Corpuscular Volume 88.8 fL (83.0-100.0); Mean Platelet Volume 9.5 fL (9.4-12.4); Monocytes # 0.5 K/mcL (0.0-1.3); Monocytes % 6.2 %; Neutrophils # 5.8 K/mcL (1.6-8.9); Platelet Count 286 K/mcL (140-400); Red Blood Count 3.48 M/mcL (4.19-5.50); Red Cell Distribution Width 12.5 % (11.5-14.5); Segmented Neutrophils % 73.5 %; White Blood Count 7.9 K/mcL (4.3-11.1)
[2021-01-09 05:27] LABS: Calcium 7.9 mg/dL (8.6-10.3); Potassium 4.8 mEq/L (3.5-5.1)
[2021-01-09] MEDS: allopurinoL 100 MG TABLET PO SCH (08:46)
[2021-01-09] MEDS: metroNIDAZOLE 500 MG TABLET PO SCH ×3 (08:46→21:07)
[2021-01-09] MEDS: ARIPiprazole 10 MG TABLET PO SCH (08:46)
[2021-01-09] MEDS: Cyanocobalamin (B-12) 1,000 MCG TABLET PO SCH (08:46)
[2021-01-09] MEDS: Calcium Acetate 667 MG CAPSULE PO SCH ×3 (08:46→16:33)
[2021-01-09] MEDS: PARoxetine 20 MG TABLET PO SCH (08:46)
[2021-01-09] MEDS: Gabapentin 400 MG CAPSULE PO SCH ×3 (08:46→21:07)
[2021-01-09] MEDS: Insulin LISPRO 300 UNITS/3 ML VIAL SUBQ SCH ×4 (08:47→21:08)
[2021-01-09] MEDS: Insulin DETEMIR 100 UNIT/ML X5UNITS SUBQ SCH ×2 (08:51→21:08)
[2021-01-09] MEDS: Fluticasone Propionate Nasal 50 MCG/SPRAY BOTTLE NS SCH (11:40)
[2021-01-09] MEDS: Benzonatate 100 MG CAPSULE PO PRN (16:33)
[2021-01-09] MEDS: ceFAZolin 1,000 MG in Water for inj. (sterile) 10 ML IVP SCH (18:01)
[2021-01-10 02:42] LABS: Basophils % 0.4 %; Eosinophils # 0.4 K/mcL (0.0-0.6); Eosinophils % 4.8 %; Hemoglobin 9.7 g/dL (12.9-16.9); Immature Granulocytes % 2.6 % (0-4); Lymphocytes # 1.4 K/mcL (0.6-4.6); Lymphocytes % 17.3 %; Mean Corpuscular HGB Conc 32.3 g/dL (31.6-35.5); Mean Corpuscular Hemoglobin 27.6 pg (28.0-33.3); Mean Corpuscular Volume 85.5 fL (83.0-100.0); Mean Platelet Volume 9.2 fL (9.4-12.4); Monocytes # 0.6 K/mcL (0.0-1.3); Monocytes % 7.2 %; Neutrophils # 5.6 K/mcL (1.6-8.9); Platelet Count 305 K/mcL (140-400); Red Blood Count 3.51 M/mcL (4.19-5.50); Red Cell Distribution Width 12.6 % (11.5-14.5); Segmented Neutrophils % 67.7 %; White Blood Count 8.2 K/mcL (4.3-11.1)
[2021-01-10 03:04] LABS: Calcium 7.9 mg/dL (8.6-10.3); Potassium 4.8 mEq/L (3.5-5.1)
[2021-01-10] MEDS: metroNIDAZOLE 500 MG TABLET PO SCH ×3 (07:58→23:52)
[2021-01-10] MEDS: Cyanocobalamin (B-12) 1,000 MCG TABLET PO SCH (07:58)
[2021-01-10] MEDS: allopurinoL 100 MG TABLET PO SCH (07:58)
[2021-01-10] MEDS: Calcium Acetate 667 MG CAPSULE PO SCH ×3 (07:59→17:14)
[2021-01-10] MEDS: PARoxetine 20 MG TABLET PO SCH (07:59)
[2021-01-10] MEDS: ARIPiprazole 10 MG TABLET PO SCH (07:59)
[2021-01-10] MEDS: Gabapentin 400 MG CAPSULE PO SCH ×3 (08:00→23:52)
[2021-01-10] MEDS: Insulin DETEMIR 100 UNIT/ML X5UNITS SUBQ SCH ×2 (08:00→23:51)
[2021-01-10] MEDS: Fluticasone Propionate Nasal 50 MCG/SPRAY BOTTLE NS SCH (08:05)
[2021-01-10] MEDS: Insulin LISPRO 300 UNITS/3 ML VIAL SUBQ SCH ×4 (08:07→23:52)
[2021-01-10] MEDS: ceFAZolin 1,000 MG in Water for inj. (sterile) 10 ML IVP SCH (17:14)
[2021-01-11 04:20] LABS: Basophils # 0.1 K/mcL (0.0-0.2); Basophils % 0.8 %; Eosinophils # 0.4 K/mcL (0.0-0.6); Eosinophils % 4.1 %; Hematocrit 31.5 % (37.5-50.1); Hemoglobin 9.8 g/dL (12.9-16.9); Immature Granulocytes % 2.7 % (0-4); Lymphocytes # 1.5 K/mcL (0.6-4.6); Mean Corpuscular HGB Conc 31.1 g/dL (31.6-35.5); Mean Corpuscular Hemoglobin 27.6 pg (28.0-33.3); Mean Corpuscular Volume 88.7 fL (83.0-100.0); Mean Platelet Volume 9.3 fL (9.4-12.4); Monocytes # 0.6 K/mcL (0.0-1.3); Monocytes % 6.5 %; Neutrophils # 5.8 K/mcL (1.6-8.9); Platelet Count 342 K/mcL (140-400); Red Blood Count 3.55 M/mcL (4.19-5.50); Red Cell Distribution Width 12.5 % (11.5-14.5); Segmented Neutrophils % 67.9 %; White Blood Count 8.6 K/mcL (4.3-11.1)
[2021-01-11 04:39] LABS: Calcium 8.3 mg/dL (8.6-10.3); Potassium 5.5 mEq/L (3.5-5.1)
[2021-01-11] MEDS: SODIUM ZIRCONIUM CYCLOSILICATE 5 GM POWD.PACK PO SCH (07:59)
[2021-01-11] MEDS ORDERED: SODIUM ZIRCONIUM CYCLOSILICATE 5 GM POWD.PACK PO SCH (09:00)
[2021-01-11] MEDS: metroNIDAZOLE 500 MG TABLET PO SCH ×2 (10:03→14:09)
[2021-01-11] MEDS: Calcium Acetate 667 MG CAPSULE PO SCH ×3 (10:03→16:11)
[2021-01-11] MEDS: PARoxetine 20 MG TABLET PO SCH (10:03)
[2021-01-11] MEDS: Gabapentin 400 MG CAPSULE PO SCH ×3 (10:03→20:51)
[2021-01-11] MEDS: Cyanocobalamin (B-12) 1,000 MCG TABLET PO SCH (10:03)
[2021-01-11] MEDS: allopurinoL 100 MG TABLET PO SCH (10:04)
[2021-01-11] MEDS: ARIPiprazole 10 MG TABLET PO SCH (10:04)
[2021-01-11] MEDS: Insulin LISPRO 300 UNITS/3 ML VIAL SUBQ SCH ×4 (10:05→20:53)
[2021-01-11] MEDS: Fluticasone Propionate Nasal 50 MCG/SPRAY BOTTLE NS SCH (10:21)
[2021-01-11] MEDS: Insulin DETEMIR 100 UNIT/ML X5UNITS SUBQ SCH ×2 (10:21→20:51)
[2021-01-11] MEDS: MOM Conc 10 ML UD.LIQ PO PRN (11:46)
[2021-01-11] MEDS: Acetaminophen 325 MG TABLET PO PRN (14:08)
[2021-01-11] MEDS: ceFAZolin 1,000 MG in Water for inj. (sterile) 10 ML IVP SCH (16:12)
[2021-01-12 03:55] LABS: Basophils # 0.1 K/mcL (0.0-0.2); Basophils % 0.6 %; Eosinophils # 0.4 K/mcL (0.0-0.6); Eosinophils % 4.6 %; Hematocrit 32.9 % (37.5-50.1); Hemoglobin 10.3 g/dL (12.9-16.9); Lymphocytes # 1.5 K/mcL (0.6-4.6); Lymphocytes % 16.9 %; Mean Corpuscular HGB Conc 31.3 g/dL (31.6-35.5); Mean Corpuscular Hemoglobin 27.7 pg (28.0-33.3); Mean Corpuscular Volume 88.4 fL (83.0-100.0); Mean Platelet Volume 9.3 fL (9.4-12.4); Monocytes # 0.6 K/mcL (0.0-1.3); Monocytes % 6.9 %; Neutrophils # 6.1 K/mcL (1.6-8.9); Platelet Count 365 K/mcL (140-400); Red Blood Count 3.72 M/mcL (4.19-5.50); Red Cell Distribution Width 12.7 % (11.5-14.5); White Blood Count 8.9 K/mcL (4.3-11.1)
[2021-01-12] MEDS ORDERED: *HR* Labetalol 20 MG/4 ML SYRINGE IVP ONE (04:10)
[2021-01-12 04:33] LABS: Calcium 8.5 mg/dL (8.6-10.3); Potassium 5.5 mEq/L (3.5-5.1)
[2021-01-12] MEDS: SODIUM ZIRCONIUM CYCLOSILICATE 5 GM POWD.PACK PO SCH (08:14)
[2021-01-12] MEDS: Insulin LISPRO 300 UNITS/3 ML VIAL SUBQ SCH ×4 (08:16→21:16)
[2021-01-12] MEDS: Calcium Acetate 667 MG CAPSULE PO SCH ×3 (10:44→16:09)
[2021-01-12] MEDS: allopurinoL 100 MG TABLET PO SCH (10:46)
[2021-01-12] MEDS: ARIPiprazole 10 MG TABLET PO SCH (10:48)
[2021-01-12] MEDS: Gabapentin 400 MG CAPSULE PO SCH ×3 (10:48→21:16)
[2021-01-12] MEDS: Cyanocobalamin (B-12) 1,000 MCG TABLET PO SCH (10:48)
[2021-01-12] MEDS: PARoxetine 20 MG TABLET PO SCH (10:48)
[2021-01-12] MEDS: Fluticasone Propionate Nasal 50 MCG/SPRAY BOTTLE NS SCH (10:49)
[2021-01-12] MEDS: Insulin DETEMIR 100 UNIT/ML X5UNITS SUBQ SCH ×2 (10:49→21:16)
[2021-01-12] MEDS: MOM Conc 10 ML UD.LIQ PO PRN (11:00)
[2021-01-12] MEDS: Benzonatate 100 MG CAPSULE PO PRN (11:01)
[2021-01-12] MEDS: tiZANidine 4 MG TABLET PO PRN (11:01)
[2021-01-12] MEDS: ceFAZolin 2,000 MG in 0.9 % Sodium Chloride 100 ML IVPB SCH (16:09)
[2021-01-13] MEDS: tiZANidine 4 MG TABLET PO PRN (00:15)
[2021-01-13] MEDS: ceFAZolin 2,000 MG in 0.9 % Sodium Chloride 100 ML IVPB SCH (05:45)
[2021-01-13 06:35] LABS: Basophils # 0.1 K/mcL (0.0-0.2); Basophils % 0.6 %; Eosinophils # 0.4 K/mcL (0.0-0.6); Eosinophils % 4.5 %; Hematocrit 31.7 % (37.5-50.1); Immature Granulocytes % 2.5 % (0-4); Lymphocytes # 1.5 K/mcL (0.6-4.6); Mean Corpuscular HGB Conc 31.5 g/dL (31.6-35.5); Mean Corpuscular Hemoglobin 28.6 pg (28.0-33.3); Mean Corpuscular Volume 90.6 fL (83.0-100.0); Mean Platelet Volume 9.3 fL (9.4-12.4); Monocytes # 0.6 K/mcL (0.0-1.3); Monocytes % 7.2 %; Neutrophils # 5.5 K/mcL (1.6-8.9); Platelet Count 360 K/mcL (140-400); Segmented Neutrophils % 67.2 %; White Blood Count 8.2 K/mcL (4.3-11.1)
[2021-01-13 06:54] LABS: Calcium 8.6 mg/dL (8.6-10.3); Magnesium 1.6 mg/dL (1.6-2.6); Phosphorous 3.3 mg/dL (2.7-4.5); Potassium 5.8 mEq/L (3.5-5.1)
[2021-01-13] MEDS: Gabapentin 400 MG CAPSULE PO SCH ×3 (08:01→20:37)
[2021-01-13] MEDS: ARIPiprazole 10 MG TABLET PO SCH (08:01)
[2021-01-13] MEDS: amLODIPine 5 MG TABLET PO SCH (08:01)
[2021-01-13] MEDS: Fluticasone Propionate Nasal 50 MCG/SPRAY BOTTLE NS SCH (08:02)
[2021-01-13] MEDS: Calcium Acetate 667 MG CAPSULE PO SCH ×3 (08:02→17:38)
[2021-01-13] MEDS: Insulin DETEMIR 100 UNIT/ML X5UNITS SUBQ SCH ×2 (08:02→20:40)
[2021-01-13] MEDS: allopurinoL 100 MG TABLET PO SCH (08:02)
[2021-01-13] MEDS: PARoxetine 20 MG TABLET PO SCH (08:02)
[2021-01-13] MEDS: Cyanocobalamin (B-12) 1,000 MCG TABLET PO SCH (08:02)
[2021-01-13] MEDS: Insulin LISPRO 300 UNITS/3 ML VIAL SUBQ SCH ×4 (08:03→20:38)
[2021-01-13] MEDS ORDERED: ceFAZolin 3,000 MG in 0.9 % Sodium Chloride 100 ML IVPB ONE (09:30)
[2021-01-13] MEDS ORDERED: Lidocaine -MPF 4% 5 ML AMPUL ONE ×2 (10:33→12:31)
[2021-01-13] MEDS ORDERED: Dexamethasone 4 MG/ML VIAL ONE (10:40)
[2021-01-13] MEDS ORDERED: *HR* Succinylcholine 200 MG/10 ML VIAL IVP ONE ×2 (10:40→12:26)
[2021-01-13] MEDS ORDERED: Lidocaine -MPF 2% 2 ML VIAL ONE (10:40)
[2021-01-13] MEDS ORDERED: Ondansetron 4 MG/2 ML VIAL ONE (10:40)
[2021-01-13] MEDS ORDERED: *HR* FentaNYL (PF) 100 MCG/2 ML VIAL ONE ×2 (10:57→11:44)
[2021-01-13] MEDS ORDERED: *HR* Propofol 200 MG/20 ML VIAL IVP ONE ×4 (10:58→12:31)
[2021-01-13] MEDS ORDERED: Ropivacaine/PF 0.5% 30 ML VIAL ONE (11:36)
[2021-01-13] MEDS ORDERED: ROPIVACAINE/PF/NS 0.25% 1 EACH SYRINGE INTRAART ONE ×2 (11:36→11:38)
[2021-01-13] MEDS ORDERED: *HR* Midazolam HCl 2 MG/2 ML VIAL ONE (11:44)
[2021-01-13] MEDS ORDERED: *HR* HYDROmorphone PF 0.5 MG/0.5 ML SYRINGE IVP PRN (13:08)
[2021-01-13] MEDS ORDERED: *HR* OxyCODONE Immed Rel 5 MG TABLET PO PRN (13:08)
[2021-01-13] MEDS ORDERED: Ondansetron 4 MG/2 ML VIAL IVP PRN (13:08)
[2021-01-13] MEDS ORDERED: EPHEDrine 50 MG/ML VIAL ONE (13:35)
[2021-01-13] MEDS ORDERED: ceFAZolin 1,000 MG, Sodium Chloride IRRigation 1,000 ML IR ONE (15:50)
[2021-01-14] MEDS: ceFAZolin 2,000 MG in 0.9 % Sodium Chloride 100 ML IVPB SCH ×4 (00:19→15:56)
[2021-01-14] MEDS: Ringers Solution, Lactated 1,000 ML IVC SCH ×2 (00:25→20:26)
[2021-01-14] MEDS: SODIUM ZIRCONIUM CYCLOSILICATE 5 GM POWD.PACK PO SCH ×2 (00:25→09:11)
[2021-01-14] MEDS: tiZANidine 4 MG TABLET PO PRN ×2 (01:01→20:18)
[2021-01-14 03:04] LABS: Basophils # 0.1 K/mcL (0.0-0.2); Basophils % 0.5 %; Eosinophils # 0.3 K/mcL (0.0-0.6); Eosinophils % 2.7 %; Hematocrit 28.8 % (37.5-50.1); Hemoglobin 9.1 g/dL (12.9-16.9); Lymphocytes # 1.2 K/mcL (0.6-4.6); Lymphocytes % 11.6 %; Mean Corpuscular HGB Conc 31.6 g/dL (31.6-35.5); Mean Corpuscular Hemoglobin 28.2 pg (28.0-33.3); Mean Corpuscular Volume 89.2 fL (83.0-100.0); Mean Platelet Volume 9.1 fL (9.4-12.4); Monocytes # 0.7 K/mcL (0.0-1.3); Monocytes % 6.7 %; Platelet Count 313 K/mcL (140-400); Red Blood Count 3.23 M/mcL (4.19-5.50); Red Cell Distribution Width 13.2 % (11.5-14.5); Segmented Neutrophils % 77.5 %; White Blood Count 10.3 K/mcL (4.3-11.1)
[2021-01-14 03:23] LABS: Calcium 8.2 mg/dL (8.6-10.3); Magnesium 1.9 mg/dL (1.6-2.6); Phosphorous 3.6 mg/dL (2.7-4.5); Potassium 6.2 mEq/L (3.5-5.1)
[2021-01-14] MEDS ORDERED: *HR* Dextrose 50 % in Water (Vial) 50 ML VIAL IVP ONE (08:59)
[2021-01-14] MEDS ORDERED: Insulin LISPRO 300 UNITS/3 ML VIAL SUBQ ONE (09:00)
[2021-01-14] MEDS ORDERED: Albuterol 2.5 MG/3 ML NEBULIZER IH ONE (09:01)
[2021-01-14] MEDS: Gabapentin 400 MG CAPSULE PO SCH ×3 (09:09→20:18)
[2021-01-14] MEDS: allopurinoL 100 MG TABLET PO SCH (09:09)
[2021-01-14] MEDS: PARoxetine 20 MG TABLET PO SCH (09:10)
[2021-01-14] MEDS: hydrALAZINE 25 MG TABLET PO SCH ×3 (09:10→22:49)
[2021-01-14] MEDS: amLODIPine 5 MG TABLET PO SCH (09:10)
[2021-01-14] MEDS: Calcium Acetate 667 MG CAPSULE PO SCH ×3 (09:13→15:49)
[2021-01-14] MEDS: ARIPiprazole 10 MG TABLET PO SCH (09:13)
[2021-01-14] MEDS: Cyanocobalamin (B-12) 1,000 MCG TABLET PO SCH (09:13)
[2021-01-14] MEDS: Fluticasone Propionate Nasal 50 MCG/SPRAY BOTTLE NS SCH (09:14)
[2021-01-14] MEDS ORDERED: Insulin Human Regular 10 UNIT in 0.9 % Sodium Chloride 10 ML IV ONE (09:39)
[2021-01-14] MEDS: Insulin DETEMIR 100 UNIT/ML X5UNITS SUBQ SCH ×2 (10:33→20:18)
[2021-01-14] MEDS: Insulin LISPRO 300 UNITS/3 ML VIAL SUBQ SCH ×4 (10:34→20:19)
[2021-01-14] MEDS: Ipratropium/Albuterol Neb 3 ML IH PRN (10:58)
[2021-01-14] MEDS: Acetaminophen 325 MG TABLET PO PRN (20:18)
[2021-01-15 02:07] LABS: Basophils % 0.5 %; Eosinophils # 0.4 K/mcL (0.0-0.6); Hematocrit 29.3 % (37.5-50.1); Hemoglobin 9.1 g/dL (12.9-16.9); Immature Granulocytes % 1.3 % (0-4); Lymphocytes # 1.4 K/mcL (0.6-4.6); Lymphocytes % 16.1 %; Mean Corpuscular HGB Conc 31.1 g/dL (31.6-35.5); Mean Corpuscular Hemoglobin 28.3 pg (28.0-33.3); Mean Corpuscular Volume 91.3 fL (83.0-100.0); Mean Platelet Volume 9.3 fL (9.4-12.4); Monocytes # 0.8 K/mcL (0.0-1.3); Monocytes % 8.7 %; Neutrophils # 6.1 K/mcL (1.6-8.9); Platelet Count 323 K/mcL (140-400); Red Blood Count 3.21 M/mcL (4.19-5.50); Red Cell Distribution Width 13.5 % (11.5-14.5); Segmented Neutrophils % 69.4 %; White Blood Count 8.8 K/mcL (4.3-11.1)
[2021-01-15 02:24] LABS: Calcium 8.2 mg/dL (8.6-10.3); Potassium 5.8 mEq/L (3.5-5.1)
[2021-01-15] MEDS: Insulin DETEMIR 100 UNIT/ML X5UNITS SUBQ SCH ×2 (08:37→20:40)
[2021-01-15] MEDS: Fluticasone Propionate Nasal 50 MCG/SPRAY BOTTLE NS SCH (08:38)
[2021-01-15] MEDS: Insulin LISPRO 300 UNITS/3 ML VIAL SUBQ SCH ×4 (08:38→20:42)
[2021-01-15] MEDS: Gabapentin 400 MG CAPSULE PO SCH ×3 (08:39→20:40)
[2021-01-15] MEDS: PARoxetine 20 MG TABLET PO SCH (08:39)
[2021-01-15] MEDS: Cyanocobalamin (B-12) 1,000 MCG TABLET PO SCH (08:39)
[2021-01-15] MEDS: amLODIPine 5 MG TABLET PO SCH (08:39)
[2021-01-15] MEDS: ARIPiprazole 10 MG TABLET PO SCH (08:39)
[2021-01-15] MEDS: Calcium Acetate 667 MG CAPSULE PO SCH ×3 (08:40→16:13)
[2021-01-15] MEDS: allopurinoL 100 MG TABLET PO SCH (08:40)
[2021-01-15] MEDS: hydrALAZINE 25 MG TABLET PO SCH ×3 (08:40→23:59)
[2021-01-15] MEDS ORDERED: Furosemide 20 MG/2 ML VIAL IVP ONE (09:13)
[2021-01-15] MEDS: SODIUM ZIRCONIUM CYCLOSILICATE 5 GM POWD.PACK PO SCH ×2 (10:21→20:40)
[2021-01-15] MEDS: Ringers Solution, Lactated 1,000 ML IVC SCH (12:27)
[2021-01-15] MEDS: *HR* Heparin 5,000 UNIT/ML VIAL SQ SCH (16:13)
[2021-01-15] MEDS: tiZANidine 4 MG TABLET PO PRN (18:57)
[2021-01-16 02:21] LABS: Basophils # 0.1 K/mcL (0.0-0.2); Basophils % 0.8 %; Eosinophils # 0.4 K/mcL (0.0-0.6); Eosinophils % 5.8 %; Hematocrit 30.2 % (37.5-50.1); Hemoglobin 9.3 g/dL (12.9-16.9); Immature Granulocytes % 1.2 % (0-4); Lymphocytes # 1.4 K/mcL (0.6-4.6); Lymphocytes % 19.5 %; Mean Corpuscular HGB Conc 30.8 g/dL (31.6-35.5); Mean Corpuscular Hemoglobin 28.2 pg (28.0-33.3); Mean Corpuscular Volume 91.5 fL (83.0-100.0); Mean Platelet Volume 9.6 fL (9.4-12.4); Monocytes # 0.6 K/mcL (0.0-1.3); Monocytes % 7.7 %; Neutrophils # 4.7 K/mcL (1.6-8.9); Platelet Count 366 K/mcL (140-400); Red Cell Distribution Width 13.4 % (11.5-14.5); White Blood Count 7.3 K/mcL (4.3-11.1)
[2021-01-16 02:38] LABS: Calcium 8.5 mg/dL (8.6-10.3); Magnesium 1.6 mg/dL (1.6-2.6); Phosphorous 3.7 mg/dL (2.7-4.5); Potassium 5.6 mEq/L (3.5-5.1)
[2021-01-16] MEDS: *HR* Heparin 5,000 UNIT/ML VIAL SQ SCH ×2 (04:11→17:10)
[2021-01-16] MEDS: SODIUM ZIRCONIUM CYCLOSILICATE 5 GM POWD.PACK PO SCH ×2 (08:12→21:06)
[2021-01-16] MEDS: Cyanocobalamin (B-12) 1,000 MCG TABLET PO SCH (08:12)
[2021-01-16] MEDS: Insulin DETEMIR 100 UNIT/ML X5UNITS SUBQ SCH ×2 (08:12→21:07)
[2021-01-16] MEDS: allopurinoL 100 MG TABLET PO SCH (08:13)
[2021-01-16] MEDS: ARIPiprazole 10 MG TABLET PO SCH (08:13)
[2021-01-16] MEDS: PARoxetine 20 MG TABLET PO SCH (08:13)
[2021-01-16] MEDS: amLODIPine 5 MG TABLET PO SCH (08:13)
[2021-01-16] MEDS: Gabapentin 400 MG CAPSULE PO SCH ×3 (08:13→21:06)
[2021-01-16] MEDS: Calcium Acetate 667 MG CAPSULE PO SCH ×3 (08:13→17:13)
[2021-01-16] MEDS: hydrALAZINE 25 MG TABLET PO SCH ×2 (08:13→15:30)
[2021-01-16] MEDS: Fluticasone Propionate Nasal 50 MCG/SPRAY BOTTLE NS SCH (08:14)
[2021-01-16] MEDS: Insulin LISPRO 300 UNITS/3 ML VIAL SUBQ SCH ×4 (08:14→20:53)
[2021-01-16] MEDS: Furosemide 20 MG/2 ML VIAL IVP SCH ×2 (11:36→21:06)
[2021-01-16] MEDS: tiZANidine 4 MG TABLET PO PRN (11:45)
[2021-01-17] MEDS: hydrALAZINE 25 MG TABLET PO SCH ×4 (00:01→23:46)
[2021-01-17 04:42] LABS: Hematocrit 29.3 % (37.5-50.1); Hemoglobin 9.1 g/dL (12.9-16.9)
[2021-01-17 04:57] LABS: Calcium 8.5 mg/dL (8.6-10.3); Magnesium 1.5 mg/dL (1.6-2.6); Phosphorous 3.9 mg/dL (2.7-4.5); Potassium 5.5 mEq/L (3.5-5.1)
[2021-01-17] MEDS: *HR* Heparin 5,000 UNIT/ML VIAL SQ SCH ×2 (05:07→17:28)
[2021-01-17] MEDS: ARIPiprazole 10 MG TABLET PO SCH (08:56)
[2021-01-17] MEDS: Cyanocobalamin (B-12) 1,000 MCG TABLET PO SCH (08:56)
[2021-01-17] MEDS: allopurinoL 100 MG TABLET PO SCH (08:56)
[2021-01-17] MEDS: SODIUM ZIRCONIUM CYCLOSILICATE 5 GM POWD.PACK PO SCH ×2 (08:57→21:14)
[2021-01-17] MEDS: Calcium Acetate 667 MG CAPSULE PO SCH ×3 (08:57→17:28)
[2021-01-17] MEDS: amLODIPine 5 MG TABLET PO SCH (08:57)
[2021-01-17] MEDS: PARoxetine 20 MG TABLET PO SCH (08:57)
[2021-01-17] MEDS: Insulin LISPRO 300 UNITS/3 ML VIAL SUBQ SCH ×4 (09:02→21:15)
[2021-01-17] MEDS: Insulin DETEMIR 100 UNIT/ML X5UNITS SUBQ SCH ×2 (09:05→21:17)
[2021-01-17] MEDS: Furosemide 20 MG/2 ML VIAL IVP SCH ×2 (09:06→21:15)
[2021-01-17] MEDS: Fluticasone Propionate Nasal 50 MCG/SPRAY BOTTLE NS SCH (09:07)
[2021-01-17] MEDS: Gabapentin 400 MG CAPSULE PO SCH ×3 (09:08→21:13)
[2021-01-17] MEDS: tiZANidine 4 MG TABLET PO PRN (23:46)
[2021-01-18] MEDS: *HR* Heparin 5,000 UNIT/ML VIAL SQ SCH ×2 (05:11→18:31)
[2021-01-18] MEDS: Calcium Acetate 667 MG CAPSULE PO SCH ×3 (08:10→17:03)
[2021-01-18] MEDS: ARIPiprazole 10 MG TABLET PO SCH (08:10)
[2021-01-18] MEDS: hydrALAZINE 25 MG TABLET PO SCH ×2 (08:10→16:24)
[2021-01-18] MEDS: Gabapentin 400 MG CAPSULE PO SCH ×2 (08:11→14:54)
[2021-01-18] MEDS: Furosemide 20 MG/2 ML VIAL IVP SCH (08:11)
[2021-01-18] MEDS: PARoxetine 20 MG TABLET PO SCH (08:11)
[2021-01-18] MEDS: SODIUM ZIRCONIUM CYCLOSILICATE 5 GM POWD.PACK PO SCH (08:11)
[2021-01-18] MEDS: Fluticasone Propionate Nasal 50 MCG/SPRAY BOTTLE NS SCH (08:11)
[2021-01-18] MEDS: amLODIPine 5 MG TABLET PO SCH (08:11)
[2021-01-18] MEDS: Cyanocobalamin (B-12) 1,000 MCG TABLET PO SCH (08:12)
[2021-01-18] MEDS: allopurinoL 100 MG TABLET PO SCH (08:12)
[2021-01-18] MEDS: Insulin DETEMIR 100 UNIT/ML X5UNITS SUBQ SCH (08:15)
[2021-01-18] MEDS: Insulin LISPRO 300 UNITS/3 ML VIAL SUBQ SCH ×3 (08:16→16:27)
[2021-01-18 08:29] LABS: Calcium 8.8 mg/dL (8.6-10.3); Magnesium 1.4 mg/dL (1.6-2.6); Phosphorous 4.6 mg/dL (2.7-4.5); Potassium 5.4 mEq/L (3.5-5.1)
[2021-01-18] MEDS ORDERED: Magnesium Sulfate 1 GM/102 ML PIGGYBACK IVPB ONE (13:14)
[2021-01-18 16:02] VITALS: BP 152/83
[2021-01-18 16:16] LABS: Adenovirus Not Detected (Not Detect); Bordetella Pertussis Not Detected (Not Detect); Chlamydophila pneumoniae Not Detected (Not Detect); Coronavirus 229E Not Detected (Not Detect); Coronavirus HKU1 Not Detected (Not Detect); Coronavirus NL63 Not Detected (Not Detect); Coronavirus OC43 Not Detected (Not Detect); Human Metapneumovirus Not Detected (Not Detect); Human Rhinovirus/Enterovirus Not Detected (Not Detect); Influenza A Subtype 2009 H1 Not Detected (Not Detect); Influenza B Not Detected (Not Detect); Mycoplasma pneumoniae Not Detected (Not Detect); Parainfluenza Virus 1 Not Detected (Not Detect); Parainfluenza Virus 2 Not Detected (Not Detect); Parainfluenza Virus 3 Not Detected (Not Detect); Parainfluenza Virus 4 Not Detected (Not Detect); Respiratory Syncytial Virus Not Detected (Not Detect); SARS-CoV-2 Not Detected (Not Detect)
[2021-01-18] MEDS ORDERED: Insulin LISPRO 300 UNITS/3 ML VIAL SUBQ SCH (17:00)
[2021-01-18] MEDS ORDERED: Insulin DETEMIR 100 UNIT/ML X5UNITS SUBQ SCH (21:00)
== END 2021-01-18 20:11 | DRG 853 ==
LOC: 3NENU 23:19 → EMEROOARM 23:19 → 3NENU 01-05 03:04 → SUATTDRO 01-05 11:07
PROVIDERS: ADMIT Student in an Organized Health Care Education/Training Program; ATTEND Internal Medicine

== ENCOUNTER 2021-01-26 13:17 | Observation (INO) ==
[2021-01-26 13:57] LABS: Basophils % 0.8 %; Eosinophils # 0.7 K/mcL (0.0-0.6); Eosinophils % 13.8 %; Hematocrit 32.4 % (37.5-50.1); Immature Granulocytes % 0.2 % (0-4); Lymphocytes # 0.8 K/mcL (0.6-4.6); Lymphocytes % 16.8 %; Mean Corpuscular HGB Conc 30.9 g/dL (31.6-35.5); Mean Corpuscular Hemoglobin 28.1 pg (28.0-33.3); Mean Platelet Volume 9.7 fL (9.4-12.4); Monocytes # 0.4 K/mcL (0.0-1.3); Monocytes % 7.4 %; Neutrophils # 3.1 K/mcL (1.6-8.9); Platelet Count 276 K/mcL (140-400); Red Blood Count 3.56 M/mcL (4.19-5.50); Red Cell Distribution Width 13.4 % (11.5-14.5)
[2021-01-26 14:28] LABS: Calcium 9.1 mg/dL (8.6-10.3); Magnesium 1.3 mg/dL (1.6-2.6); Potassium 6.3 mEq/L (3.5-5.1)
[2021-01-26] MEDS ORDERED: Calcium Gluconate 1gm/50mL 1 GM/50 ML BAG IVPB ONE (14:30)
[2021-01-26] MEDS ORDERED: Insulin Human Regular 10 UNIT in 0.9 % Sodium Chloride 10 ML IV ONE ×2 (14:31→17:10)
[2021-01-26] MEDS ORDERED: Albuterol 2.5 MG/3 ML NEBULIZER IH ONE (14:34)
[2021-01-26] MEDS ORDERED: SODIUM ZIRCONIUM CYCLOSILICATE 5 GM POWD.PACK PO ONE (14:40)
[2021-01-26] MEDS ORDERED: Naloxone 0.4 MG/ML INJ IVP PRN (15:40)
[2021-01-26] MEDS: SODIUM ZIRCONIUM CYCLOSILICATE 5 GM POWD.PACK PO SCH (15:44)
[2021-01-26] MEDS ORDERED: Dextrose Gel 15 GM/37.5 ML TUBE PO PRN ×2 (16:13)
[2021-01-26] MEDS ORDERED: *HR* Dextrose 50 % in Water (Vial) 50 ML VIAL IVP PRN (16:13)
[2021-01-26] MEDS ORDERED: D5% in Water 1,000 ML IVC PRN (16:13)
[2021-01-26 17:06] LABS: Calcium 9.2 mg/dL (8.6-10.3); Potassium 5.3 mEq/L (3.5-5.1)
[2021-01-26] MEDS ORDERED: *HR* Dextrose 50 % in Water (Syg) 50 ML SYRINGE IVP ONE (17:10)
[2021-01-26] MEDS: Insulin LISPRO 300 UNITS/3 ML VIAL SUBQ SCH (17:13)
[2021-01-26] MEDS ORDERED: *HR* Dextrose 50 % in Water (Vial) 50 ML VIAL IVP ONE (17:30)
[2021-01-26] MEDS ORDERED: Insulin DETEMIR 100 UNIT/ML X5UNITS SUBQ SCH (21:00)
[2021-01-26] MEDS ORDERED: Insulin LISPRO 300 UNITS/3 ML VIAL SUBQ SCH (21:00)
[2021-01-26] MEDS: *HR* Heparin 5,000 UNIT/ML VIAL SQ SCH (21:19)
[2021-01-26] MEDS: Insulin DETEMIR 100 UNIT/ML X5UNITS SUBQ SCH (21:20)
[2021-01-27] MEDS ORDERED: *HR* OxyCODONE Immed Rel 5 MG TABLET PO SCH (02:00)
[2021-01-27] MEDS ORDERED: *HR* OxyCODONE Immed Rel 5 MG TABLET PO PRN (02:00)
[2021-01-27 04:40] LABS: Basophils % 0.9 %; Eosinophils # 0.6 K/mcL (0.0-0.6); Eosinophils % 12.9 %; Hematocrit 30.3 % (37.5-50.1); Hemoglobin 9.2 g/dL (12.9-16.9); Immature Granulocytes % 0.2 % (0-4); Lymphocytes # 0.9 K/mcL (0.6-4.6); Lymphocytes % 20.6 %; Mean Corpuscular HGB Conc 30.4 g/dL (31.6-35.5); Mean Corpuscular Hemoglobin 28.1 pg (28.0-33.3); Mean Corpuscular Volume 92.7 fL (83.0-100.0); Mean Platelet Volume 9.6 fL (9.4-12.4); Monocytes # 0.5 K/mcL (0.0-1.3); Monocytes % 10.5 %; Neutrophils # 2.5 K/mcL (1.6-8.9); Platelet Count 243 K/mcL (140-400); Red Blood Count 3.27 M/mcL (4.19-5.50); Red Cell Distribution Width 13.7 % (11.5-14.5); Segmented Neutrophils % 54.9 %; White Blood Count 4.6 K/mcL (4.3-11.1)
[2021-01-27 04:56] LABS: Calcium 8.9 mg/dL (8.6-10.3); Magnesium 1.7 mg/dL (1.6-2.6); Phosphorous 4.6 mg/dL (2.7-4.5); Potassium 5.4 mEq/L (3.5-5.1)
[2021-01-27] MEDS: *HR* Heparin 5,000 UNIT/ML VIAL SQ SCH ×2 (05:51→12:24)
[2021-01-27] MEDS: Insulin LISPRO 300 UNITS/3 ML VIAL SUBQ SCH ×2 (08:43→12:24)
[2021-01-27] MEDS: SODIUM ZIRCONIUM CYCLOSILICATE 5 GM POWD.PACK PO SCH (08:44)
[2021-01-27] MEDS: Insulin DETEMIR 100 UNIT/ML X5UNITS SUBQ SCH (08:44)
[2021-01-27] MEDS: Gabapentin 100 MG CAPSULE PO SCH ×2 (08:44→15:28)
[2021-01-27] MEDS ORDERED: Nystatin POWDER 30 GM BOTTLE TP PRN (12:28)
[2021-01-27] MEDS ORDERED: allopurinoL 100 MG TABLET PO SCH (12:30)
[2021-01-27] MEDS ORDERED: ARIPiprazole 10 MG TABLET PO SCH (12:30)
[2021-01-27] MEDS ORDERED: Calcium Acetate 667 MG CAPSULE PO SCH (12:30)
[2021-01-27 12:33] VITALS: BP 156/74
[2021-01-27] MEDS ORDERED: amLODIPine 5 MG TABLET PO SCH (13:00)
[2021-01-27] MEDS ORDERED: PARoxetine 20 MG TABLET PO SCH (13:15)
[2021-01-27] MEDS ORDERED: hydrALAZINE 25 MG TABLET PO SCH (15:00)
[2021-01-27] MEDS ORDERED: Gabapentin 100 MG CAPSULE PO SCH (15:00)
== END 2021-01-27 17:52 ==
LOC: 2ANU 13:17 → EMEROOARM 13:17 → 2ANU 16:52
PROVIDERS: ADMIT Internal Medicine; ATTEND Internal Medicine